=== PATIENT | male | born 1940 | race Caucasian/White ===

== ENCOUNTER 2020-06-25 17:16 | Inpatient (IN) | payer MEDICARE, SELFPAY ==
[2020-06-25 17:17] VITALS: BP 115/80; PULSE 88; RESP 14; TEMP 36.9; O2SAT 95; BMI 22.1
--- NOTE | 2020-06-25 17:30 | ED.VISSUMM ---
- ER Visit Summary Date of Service: 06/25/20 Chief Complaint: Elevated blood sugar with a history of diabetes History of Present Illness: The patient is a 79 M history of diabetes on oral hypoglycemic not insulin, hypertension and hypothyroidism. He was diagnosed about 4 5 months ago with diabetes is only on 1 pill a day. said recently he has been drinking more fluids. He has been drinking a lot of sweet tea. She was concerned as his blood sugar was reading high today. He is never been in DKA. He denies any recent illness. No nausea, vomiting, diarrhea or fever. No dysuria. No chest pain, shortness of breath or abdominal pain. Physical Examination: Well-appearing older male. Accompanied by his family. Vital signs are stable afebrile. He does not look septic or toxic. He does not look dehydrated. H EENT exam unremarkable. Moist mucous membranes. Pupils round reactive light. No facial droop. Normal speech. Neck nontender. Lungs clear to auscultation bilaterally. Heart regular rhythm no murmur. Rate about 90. Abdomen is soft and nontender. Normal bowel sounds no peritoneal signs. Patient moving all 4 extremities. Nontender. No edema. Normal range of motion. Normal motor strength. Patient is awake and alert answering all questions. Test Results: CBC shows a white count of 9. Hemoglobin 15. No bands. Electrolytes show a normal anion gap at 12 glucose elevated at 565 with a BUN of 46 and creatinine of 1.81 consistent with dehydration. Ketones are moderate which may be from either dehydration or early DKA but currently there is no gap. Repeat exam the patient is doing well at 7:05 PM. He will be started on a second liter normal saline. I discussed with both he and his family they are comfortable with the admission. Emergency Department Course and Treatment: Male with diabetes with elevated blood sugar. He will be treated IV fluids. Labs are being obtained. Treatment Plan: Hospitalist on page for admission. Discussed patient care with the night hospitalist. He preferred the patient get subcu insulin set IV. He will be placed on PCU. Patient will be given 8 units subcu of Humalog. Disposition: Admission Impression: Acute hyperglycemia with elevated serum ketones Rule out DKA Dehydration History of [id number] diabetes This note was generated with [employer] dictation software. It may contain incorrect words, spelling, and punctuation that were not noted in review of the chart prior to signing ED Disposition - Plan for ED Patient: Referrals: Woo Julien MD [STAFF PHYSICIAN] -
[2020-06-25] MEDS: 0.9% Normal Saline 1,000 ML 1000 ML IV (17:43)
[2020-06-25 17:50] LABS: Absolute Lymphocyte Count 1.78 X10^3/uL (0.83-4.51); Absolute Neutrophil Count 7.4 X10^3/uL (2.0-7.7); Basophil# 0.02 X10^3/uL; Basophil% 0.2 % (0-1); Eosinophil# 0.01 X10^3/uL; Eosinophils% 0.1 % (0-5); Hematocrit 46.9 % (40-54); Hemoglobin 15.6 g/dL (13.0-16.5); Lymphocyte # 1.78 X10^3/ul (4.0); Lymphocyte % 18.1 % (19-41); Mean Corp Hgb Conc 33.3 g/dL (32-36); Mean Corpuscular Hgb 30.4 pg (27.0-32.0); Mean Corpuscular Volume 91.4 fL (80-94); Monocyte# 0.61 X10^3/uL; Monocyte% 6.2 % (0-10); NRBC Flagged by Analyzer 0 % (0-5); Neutrophil # 7.36 X10^3/uL (2.7-7.7); Neutrophil % 75.1 % (47-70); Platelet Count 242 K/mm3 (150-450); RBC Distribution Width CV 11.3 % (11.6-14.6); RBC Distribution Width SD 38.2 fl (35.1-43.9); Red Blood Count 5.13 M/mm3 (4.6-6.2); White Blood Count 9.8 K/mm3 (4.4-11.0)
[2020-06-25 18:46] LABS: Anion Gap 12 (5-15); BUN 46 mg/dL (7-18); BUN/Creat Ratio 25.4 RATIO (10-20); Calcium,Total 9.9 mg/dL (8.5-10.1); Chloride 99 mmol/L (98-107); Creatinine, Serum 1.81 mg/dL (0.70-1.30); EST Glomerular Filtration Rate 39 mL/min (>60); Est Glom Filt Rate - Afr Amer 47 mL/min (>60); Estimated Creatinine Clearance 32.89 ml/min; Glucose 565 mg/dL (74-106); Potassium 4.7 mmol/L (3.5-5.1); Sodium Level 136 mmol/L (136-145)
[2020-06-25 19:15] LABS: Bedside Glucose > 500 mg/dL (70-110)
[2020-06-25] MEDS: 0.9% Normal Saline 1,000 ML 999 ML IV (19:20)
[2020-06-25] MEDS: Insulin Lispro 100 UNIT/ML INSULN.PEN 8 UNIT SC (19:20)
[2020-06-25 19:23] VITALS: BP 111/77; PULSE 72; PULSE 73; RESP 14; TEMP 37; O2SAT 99
--- NOTE | 2020-06-25 19:24 | PCM.HP.STD ---
Problem List (1) CHANTALE (acute kidney injury) Status: Acute (2) Acute hyperglycemia Status: Acute (3) Dehydration Status: Acute History of Present Illness Date of Admission: 06/25/20 Chief Complaint: Elevated blood glucose at home The patient is a 79 year old M with a significant history of recently diagnosed diabetes mellitus; hypertension and hypothyroidism who presented to emergency department with elevated blood glucose. In the morning on the same day of presentation patient's checked patient blood glucose. Patient blood glucose was in the 560s. Associated with his symptoms is fatigue; polydipsia and polyuria. Reportedly patient has been drinking so much water, orange juice and sweet tea. Patient's called the [facility] system and patient was instructed to come to the emergency department. Reportedly patient was diagnosed with diabetes mellitus about 4 months ago and is on Metformin. Past Medical History Medical History: Medical History (Last Updated 06/25/20 @ 19:[address] Mk Davis MD) Diabetes mellitus E11.9 Hypothyroidism E03.9 Hypertension I10 Allergies No Known Allergies Allergy (Verified 06/25/20 17:17) Home Medications: Ambulatory Orders Medication Instructions Recorded Cyanocobalamin [Vitamin B12] 1,000 mcg PO DAILY@0800 03/17/14 Levothyroxine 150 mcg PO DAILY 03/17/14 Lisinopril [Zestril] 20 mg PO DAILY 03/17/14 Ferrous Sulfate [Iron] 325 mg PO DAILY 06/25/20 metFORMIN (XR) [Glucophage Xr] 500 mg PO DAILY 06/25/20 Surgical History: cholecystectomy Smoking Status: Former smoker Tobacco Use: Cigarettes - *Family History Maternal History Items: Cancer Sibling History Items: Cancer Review of Systems Constitutional: Reports: Fatigue. Denies: Chills, Fever, Weight Change HEENT: Denies: Head Aches, Sinus Congestion, Sinus Drainage Cardiovascular: Denies: Chest Pain, Palpitations Respiratory: Denies: Cough, Shortness of breath at rest, Sputum production Gastrointestinal: Denies: Abdominal Pain, Nausea, Vomiting Genitourinary: Denies: Dysuria Musculoskeletal: Denies: Joint Pain, Joint Tenderness Skin: Denies: Rash, Wounds Neurological: Denies: Numbness, Tingling, Focal weakness Psychiatric: Denies: Anxiety, Depression, Homicidal Ideations, Suicidal Ideations Endocrine: Reports: Polydipsia, Polyuria Hematologic/ Lymphatic: Denies: Easy Bruising, Easy Bleeding VTE Information - Inpt Only VTE Present on Admission: No VTE Mechan Device Prophylaxis: None VTE Pharm Prophylaxis ordered?: Yes Patient Problems: Active and Suspected Problems (Last Updated 06/25/20 @ 19:[address] Mk Davis MD) CHANTALE (acute kidney injury) (Acute) Acute hyperglycemia (Acute) Dehydration (Acute) - Physical Exam Vitals/I&O's: Vital Signs Temp Pulse Resp BP Pulse Ox 98.6 F 73 14 111/77 99 06/25/20 19:23 06/25/20 19:23 06/25/20 19:23 06/25/20 19:23 06/25/20 19:23 Oxygen Delivery Method Room Air Weight: 68.039 kg Body Mass Index (BMI) 22.1 Finger Stick Blood Glucose 545 Intake and Output for Last 24 Hours 06/23/20 06/24/20 06/25/20 23:59 23:59 23:59 Intake Total 1000 / 1000 Balance 1000 / 1000 General: Alert, Oriented x3, Cooperative HEENT: Atraumatic, PERRLA, EOMI, Normocephalic Neck: Supple, No JVD, Negative Carotid Bruits Lungs: Clear to auscultation, Normal air movement Cardiovascular: Regular rate, No murmurs Abdomen: Bowel Sounds Present, Soft, Non Tender Extremities: No edema, Capillary Refill Less than 3 Seconds Skin: No rashes, No breakdown Musculoskeletal: No Tenderness to Palpation of Joints or Extremities Neurological: Cranial nerves II-XII grossly intact Psych/Mental Status: Normal Affect, Appropriate Laboratory Results 06/25/20 17:41: WBC 9.8, RBC 5.13, Hgb 15.6, Hct 46.9, MCV 91.4, MCH 30.4, MCHC 33.3, RDW Std Deviation 38.2, RDW Coeff of Moise 11.3 L, Plt Count 242, MPV 12.0, Immature Gran % (Auto) 0.300, Neut % (Auto) 75.1 H, Lymph % (Auto) 18.1 L, [place] % (Auto) 6.2, Eos % (Auto) 0.1, Baso % (Auto) 0.2, Absolute Neuts (auto) 7.4, Absolute Lymphs (auto) 1.78, Nucleated RBC % 0 06/25/20 17:41: Sodium 136, Potassium 4.7, Chloride 99, Carbon Dioxide 25.0, Anion Gap 12, BUN 46 H, Creatinine 1.81 H, Estim Creat Clear Calc 32.89, Est GFR (MDRD) Af Amer 47 L, Est GFR (MDRD) Non-Af 39 L, BUN/Creatinine Ratio 25.4 H, Glucose 565 H*, Calcium 9.9 06/25/20 17:41: Acetone Level MODERATE H 06/25/20 19:10: POC Glucose > 500 H* Current Medications Dextrose (Dextrose 50%-Water 25 Gm/50 Ml Disp.Syrin) 0 gm IV X1 PRN; Protocol PRN Reason: Hypoglycemia Glucagon (Glucagon 1 Mg/Ml Syringe) 1 mg IM .X1 PRN PRN Reason: Hypoglycemia Sodium Chloride () 1,000 mls @ 999 mls/hr IV .Q1H1M ONE Stop: 06/25/20 20:07 Last Admin: 06/25/20 19:20 Dose: 999 mls/hr Documented by: Insulin Human Lispro (Insulin Lispro 100 Unit/Ml Insuln.Pen) 0 unit SC Q4 PAMELA; Protocol Assessment/Plan All Active Problems (Last Updated 06/25/20 @ 19:[address] Mk Davis MD) CHANTALE (acute kidney injury) (Acute) Acute hyperglycemia (Acute) Dehydration (Acute) The patient is a 79 year old M with a significant history of recently diagnosed diabetes mellitus; hypertension and hypothyroidism who presented to emergency department with elevated blood glucose; fatigue; polydipsia and polyuria and found to have elevated BUN; elevated creatinine; severely elevated blood glucose and with ketones but if no anion gap and if no metabolic acidosis. Acute hyperglycemia Serum glucose 568 acetone level: Moderate Anion gap of 12 Received normal saline bolus at emergency department. Discussed emergent department doctor will give patients of subcutaneous insulin x1 dose N.p.o. for now except meds and water. Accu-Chek every 4 hours with correction scale insulin. Hold home Metformin. Admitted to PCU Review of community records shows that A1c on 05/04/2020 was 7.1 and A1c on 11/22/2019 was 6.2. CHANTALE/dehydration His creatinine on presentation was 1.81. Review of community records showed that his creatinine 05/04/2020 was 1.09. BUN is 46. BUN over creatinine is 25.5. Serum osmolality ordered. Serum osmolality returned as 338. Normal saline at 100 mL/h ordered. Avoid nephrotoxins. Home lisinopril held. Hypertension Blood pressure is within goal Lisinopril held secondary to CHANTALE. As needed hydralazine ordered. Trend blood pressure and adjust blood pressure medications. Hypothyroidism Synthroid continued DVT prophylaxis Subcutaneous Lovenox ordered. OBSV E&M: 35195 Initial observation care L3
[2020-06-25 19:50] VITALS: BMI 20.2
[2020-06-25 19:55] VITALS: BP 123/80; PULSE 78; RESP 18; TEMP 36.7; O2SAT 100
[2020-06-25 20:00] VITALS: BMI 20.2
[2020-06-25] MEDS: 0.9% Normal Saline 1,000 ML 100 ML IV (20:15)
[2020-06-25 20:33] LABS: Osmolality, Serum 338 mOsm/KG (280-301)
[2020-06-25 20:50] LABS: Bedside Glucose 368 mg/dL (70-110)
[2020-06-25 21:30] VITALS: PULSE 70
[2020-06-25 23:00] VITALS: PULSE 69
[2020-06-25] MEDS: Insulin Lispro 100 UNIT/ML INSULN.PEN SC (23:15)
[2020-06-25 23:21] LABS: Bedside Glucose 178 mg/dL (70-110)
[2020-06-26] VITALS (11 sets, daily range): BP systolic 92–106; BP diastolic 55–67; PULSE 62–70; RESP 12–20; TEMP 36.3–37; O2SAT 95–97; BMI 20.5
[2020-06-26 00:53] LABS: Anion Gap 7 (5-15); BUN 42 mg/dL (7-18); BUN/Creat Ratio 36.5 RATIO (10-20); Calcium,Total 8.5 mg/dL (8.5-10.1); Chloride 114 mmol/L (98-107); Creatinine, Serum 1.15 mg/dL (0.70-1.30); EST Glomerular Filtration Rate 65 mL/min (>60); Est Glom Filt Rate - Afr Amer 79 mL/min (>60); Estimated Creatinine Clearance 47.33 ml/min; Glucose 162 mg/dL (74-106); Potassium 3.8 mmol/L (3.5-5.1); Sodium Level 146 mmol/L (136-145)
[2020-06-26] MEDS: Insulin Lispro 100 UNIT/ML INSULN.PEN SC ×4 (02:59→20:48)
[2020-06-26 03:06] LABS: Bedside Glucose 162 mg/dL (70-110)
[2020-06-26] MEDS: 0.9% Normal Saline 1,000 ML 100 ML IV ×2 (05:31→15:07)
[2020-06-26] MEDS: Levothyroxine 150 MCG Tablet PO (05:31)
[2020-06-26 06:47] LABS: Absolute Neutrophil Count 6.2 X10^3/uL (2.0-7.7); Basophil# 0.03 X10^3/uL; Basophil% 0.3 % (0-1); Eosinophil# 0.09 X10^3/uL; Hematocrit 38.2 % (40-54); Hemoglobin 12.6 g/dL (13.0-16.5); Lymphocyte % 22.3 % (19-41); Mean Platelet Vol. 12.2 fl (6.2-12.0); Monocyte# 0.67 X10^3/uL; Monocyte% 7.5 % (0-10); NRBC Flagged by Analyzer 0 % (0-5); Neutrophil # 6.17 X10^3/uL (2.7-7.7); Neutrophil % 68.7 % (47-70); Platelet Count 175 K/mm3 (150-450); RBC Distribution Width CV 11.5 % (11.6-14.6); RBC Distribution Width SD 38.1 fl (35.1-43.9)
[2020-06-26 07:05] LABS: Bedside Glucose 170 mg/dL (70-110)
[2020-06-26 07:09] LABS: Anion Gap 7 (5-15); BUN 42 mg/dL (7-18); BUN/Creat Ratio 37.2 RATIO (10-20); Calcium,Total 8.5 mg/dL (8.5-10.1); Chloride 114 mmol/L (98-107); Creatinine, Serum 1.13 mg/dL (0.70-1.30); EST Glomerular Filtration Rate 67 mL/min (>60); Est Glom Filt Rate - Afr Amer 81 mL/min (>60); Estimated Creatinine Clearance 48.16 ml/min; Glucose 164 mg/dL (74-106); Potassium 4.1 mmol/L (3.5-5.1); Sodium Level 146 mmol/L (136-145)
[2020-06-26 07:54] LABS: Hemoglobin A1c 12.5 % (3.8-5.6)
[2020-06-26] MEDS: Enoxaparin 40 MG/0.4 ML Syringe SC (09:58)
[2020-06-26] MEDS: Cyanocobalamin 500 MCG Tablet 1000 MCG PO (09:58)
--- NOTE | 2020-06-26 11:25 | CASEMGMT ---
Addendum entered by Jhonatan Hylton 06/26/20 12:23: [facility] can take HHC referral for patient with anticipated dc Tuesday, June 27 Original Note: RN CM Assessment Introduced role of CM to patient in room. Patient was ambulating in ness with therapy assistance prior to speaking with him. Pt is awake and alert and able to participate in assessment. States he is moderately independent at home, but is able to assist him. States she does help with some bathing, meals and home care. Diagnosis: hyperglycemia, CHANTALE PCP: Dr. Valdez Specialist: none Pharmacy: [facility] [place]: Living arrangments: lives in mobile home with his . States 5 steps into home, then all on one level. Pt uses shower chair, and is able to assist with care needs, however pt does own bathing and dressing. DME: walker, cane, shower chair, BGM machine, working and has supplies. States his assists with this. HHC: none currently or past. Discussed home care on discharge for SN, PT/OT and patient is agreeable. Reviewed list of [facility] providers specific to patient's geographic area and patient chose [facility] as first choice and [facility] if they cannot accept. Referral made to [facility] and they will review. SNF: none DC PLAN: home with HHC. If further dc concerns arise, notify CM. Charles PINTO RN ACM
[2020-06-26 11:56] LABS: Bedside Glucose 219 mg/dL (70-110)
--- NOTE | 2020-06-26 12:36 | NT.THERAPY_ITS ---
Nutrition Therapy Report - History Nutrition Services has been consulted to:: Manage nutrient details of diet order Current diet / nutrition support order:: 1800 Calorie / Cardiac - Anthropometric Measurements Height:: 5 ft 9 in Weight:: 63.2 kg Body Mass Index (BMI):: 20.5 - Relevant Labs Relevant Labs:: RBC 4.20 M/mm3 (4.6-6.2) L 06/26/20 05:55 Hgb 12.6 g/dL (13.0-16.5) L 06/26/20 05:55 Hct 38.2 % (40-54) L 06/26/20 05:55 RDW Coeff of Moise 11.5 % (11.6-14.6) L 06/26/20 05:55 MPV 12.2 fl (6.2-12.0) H 06/26/20 05:55 Neut % (Auto) 75.1 % (47-70) H 06/25/20 17:41 Lymph % (Auto) 18.1 % (19-41) L 06/25/20 17:41 Sodium 146 mmol/L (136-145) H 06/26/20 05:55 Chloride 114 mmol/L (98-107) H 06/26/20 05:55 BUN 42 mg/dL (7-18) H 06/26/20 05:55 Creatinine 1.81 mg/dL (0.70-1.30) H 06/25/20 17:41 Est GFR (MDRD) Af Amer 47 mL/min (>60) L 06/25/20 17:41 Est GFR (MDRD) Non-Af 39 mL/min (>60) L 06/25/20 17:41 BUN/Creatinine Ratio 37.2 RATIO (10-20) H 06/26/20 05:55 Glucose 164 mg/dL (74-106) H 06/26/20 05:55 Hemoglobin A1c 12.5 % (3.8-5.6) H 06/26/20 05:55 Serum Osmolality 338 mOsm/KG (280-301) H 06/25/20 17:41 - Assessment Food / Nutrition-Related History:: Fair po intake in hospital - pt states appetite has not been as good in the past 6 mo and has had wt loss d/t lack of eating. UBW: 81.647 kg - wt loss of 23.9% x 6 mo - sig for malnutrition. 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 Pt agreeable to getting ONS w/ medpass for increased nutrition if consumed. 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 Altered nutrition related lab values r/t endocrine dysfunction aeb A1c=12.5 at time of adm. [ End ] Evidence of Malnutrition Exists:: Yes Severe PCM:: Acute Illness - Nutrition Intervention Nutrition Prescription:: [id number] bambi/day (RMRx 1.3). 50-62 gm pro/day (.8-1 gm/kg). 1800 ml/day (1 ml/bambi) - Food / Nutrient Delivery Interventions Summary of nutrition intervention:: Provided pt with written diabetic diet education- Where Do I Begin and Meal Planning Plate. Discussed need for consistent cho intake, consistent meal times, need for 3 balanced meals each day and portion control w/ CHO containing foods. Pt states that his will do better with this info than he will - agreed to share w/ his . Suggested consider outpt Diabetic Clinic for further diabetes diet education and teaching on SMBG. Will provide 120 ml Glucerna Shake 4x/day w/ medpass for increased nutrition if consumed. Nutrition support ordered as / adjusted to:: Will continue diet as ordered. Will provide ONS w/ medpass for increased nutrition if consumed. Nutrition education provided?: Yes - MNT Monitoring MNT Follow-up in:: 3-5 days - Please call RD/LD if questions x [phone]
[2020-06-26] MEDS: Glucerna Shake 120 ML LIQUID PO ×2 (14:05→17:16)
[2020-06-26] MEDS: Ferrous Sulfate 325 MG Tablet PO (14:05)
--- NOTE | 2020-06-26 14:35 | PN_ITS ---
Patient Problems: Active and Suspected Problems (Last Updated 06/25/20 @ 19:[address] Mk Davis MD) CHANTALE (acute kidney injury) (Acute) Acute hyperglycemia (Acute) Dehydration (Acute) Subjective: Patient seen and examined. He had no complaints and felt well. Review of systems otherwise negative. Sugar had trended down to the 150s. Patient has been started on a diet. Vitals/I&O's: Vital Signs Temp Pulse Resp BP Pulse Ox 98.2 F 70 12 103/67 95 06/26/20 09:52 06/26/20 12:02 06/26/20 09:52 06/26/20 09:52 06/26/20 09:52 Oxygen Delivery Method Room Air Weight: 139 lb 5.314 oz Body Mass Index (BMI) 20.5 Finger Stick Blood Glucose 545 Intake and Output for Last 24 Hours 06/24/20 06/25/20 06/26/20 23:59 23:59 23:59 Intake Total 1932.4 / 2132.4 1666.67 / 1666.67 Balance 1932.4 / 2131.4 1666.67 / 1666.67 General: Alert, Oriented x3, Cooperative, No apparent distress HEENT: Atraumatic, PERRLA, EOMI, Normocephalic Oral: Dry Mucosa Neck: Supple, No JVD, Negative Carotid Bruits Lungs: Clear to auscultation, Normal air movement, No rhonchi, No wheeze Cardiovascular: Regular rate, Regular Rhythm, Normal S1, Normal S2, No murmurs Abdomen: Bowel Sounds Present, Soft, Non Tender Extremities: No clubbing, No cyanosis, No edema, Capillary Refill Less than 3 Seconds Skin: No rashes, No breakdown Musculoskeletal: No Tenderness to Palpation of Joints or Extremities Lymphatic: No Cervical, Supraclavicular, or Inguinal Adenopathy Neurological: Cranial nerves II-XII grossly intact, Neuro grossly intact, Motor Exam 5/5 strength throughout Psych/Mental Status: Normal Affect, Appropriate, Alert and oriented to time, place, person, mood and affect Laboratory Results 06/25/20 17:41: WBC 9.8, RBC 5.13, Hgb 15.6, Hct 46.9, MCV 91.4, MCH 30.4, MCHC 33.3, RDW Std Deviation 38.2, RDW Coeff of Moise 11.3 L, Plt Count 242, MPV 12.0, Immature Gran % (Auto) 0.300, Neut % (Auto) 75.1 H, Lymph % (Auto) 18.1 L, [place] % (Auto) 6.2, Eos % (Auto) 0.1, Baso % (Auto) 0.2, Absolute Neuts (auto) 7.4, Absolute Lymphs (auto) 1.78, Nucleated RBC % 0 06/25/20 17:41: Sodium 136, Potassium 4.7, Chloride 99, Carbon Dioxide 25.0, Anion Gap 12, BUN 46 H, Creatinine 1.81 H, Estim Creat Clear Calc 32.89, Est GFR (MDRD) Af Amer 47 L, Est GFR (MDRD) Non-Af 39 L, BUN/Creatinine Ratio 25.4 H, Glucose 565 H*, Calcium 9.9 06/25/20 17:41: Acetone Level MODERATE H 06/25/20 17:41: Serum Osmolality 338 H 06/25/20 19:10: POC Glucose > 500 H* 06/25/20 20:33: POC Glucose 368 H 06/25/20 23:15: POC Glucose 178 H 06/26/20 00:15: Sodium 146 H, Potassium 3.8, Chloride 114 H, Carbon Dioxide 25.0, Anion Gap 7, BUN 42 H, Creatinine 1.15, Estim Creat Clear Calc 47.33, Est GFR (MDRD) Af Amer 79, Est GFR (MDRD) Non-Af 65, BUN/Creatinine Ratio 36.5 H, Glucose 162 H, Calcium 8.5 06/26/20 02:58: POC Glucose 162 H 06/26/20 05:55: WBC 9.0, RBC 4.20 L, Hgb 12.6 L, Hct 38.2 L, MCV 91.0, MCH 30.0, MCHC 33.0, RDW Std Deviation 38.1, RDW Coeff of Moise 11.5 L, Plt Count 175, MPV 12.2 H, Immature Gran % (Auto) 0.200, Neut % (Auto) 68.7, Lymph % (Auto) 22.3, [place] % (Auto) 7.5, Eos % (Auto) 1.0, Baso % (Auto) 0.3, Absolute Neuts (auto) 6.2, Absolute Lymphs (auto) 2.00, Nucleated RBC % 0 06/26/20 05:55: Sodium 146 H, Potassium 4.1, Chloride 114 H, Carbon Dioxide 25.0, Anion Gap 7, BUN 42 H, Creatinine 1.13, Estim Creat Clear Calc 48.16, Est GFR (MDRD) Af Amer 81, Est GFR (MDRD) Non-Af 67, BUN/Creatinine Ratio 37.2 H, Glucose 164 H, Calcium 8.5 06/26/20 05:55: Hemoglobin A1c 12.5 H 06/26/20 06:59: POC Glucose 170 H 06/26/20 11:51: POC Glucose 219 H Current Medications Acetaminophen (Acetaminophen 325 Mg Tablet) 650 mg PO Q6H PRN PRN PRN Reason: Pain Score 1-10/Temp > 100.7 F Cyanocobalamin (Cyanocobalamin 500 Mcg Tablet) 1,000 mcg PO DAILY@0800 [facility] Last Admin: 06/26/20 09:58 Dose: 1,000 mcg Documented by: Dextrose (Dextrose 50%-Water 25 Gm/50 Ml Disp.Syrin) 0 gm IV X1 PRN; Protocol PRN Reason: Hypoglycemia Enoxaparin Sodium (Enoxaparin 40 Mg/0.4 Ml Syringe) 40 mg SC DAILY [facility] Last Admin: 06/26/20 09:58 Dose: 40 mg Documented by: Ferrous Sulfate (Ferrous Sulfate 325 Mg Tablet) 325 mg PO LUNCH [facility] Last Admin: 06/26/20 14:05 Dose: 325 mg Documented by: Glucagon (Glucagon 1 Mg/Ml Syringe) 1 mg IM .X1 PRN PRN Reason: Hypoglycemia Hydralazine HCl (Hydralazine 20 Mg/Ml Vial) 5 mg IV Q4H PRN PRN PRN Reason: SBP > 160 OR DBP > 120 Sodium Chloride () 1,000 mls @ 100 mls/hr IV .Q10H [facility] Last Admin: 06/26/20 05:31 Dose: 100 mls/hr Documented by: Insulin Glargine (Insulin Glargine 100 Units/Ml Pen) 10 units SC DAILY [facility] Last Admin: 06/26/20 09:59 Dose: 10 units Documented by: Insulin Human Lispro (Insulin Lispro 100 Unit/Ml Insuln.Pen) 0 unit SC Q4H [facility]; Protocol Last Admin: 06/26/20 13:23 Dose: Not Given Documented by: Levothyroxine Sodium (Levothyroxine 150 Mcg Tablet) 150 mcg PO DAILY@0600 [facility] Last Admin: 06/26/20 05:31 Dose: 150 mcg Documented by: Melatonin (Melatonin 3 Mg Tablet) 3 mg PO QHS PRN PRN PRN Reason: INSOMNIA Nutritional Formula (Lactose Free) (Glucerna Shake 120 Ml Liquid) 120 ml PO 4X/DAY [facility] Last Admin: 06/26/20 14:05 Dose: 120 ml Documented by: Ondansetron HCl (Ondansetron 4 Mg/2 Ml Vial) 4 mg IV Q8H PRN PRN PRN Reason: NAUSEA/VOMITING Senna/Docusate Sodium (Senna/Docusate Sodium 1 Tablet) 2 tablet PO BID PRN PRN PRN Reason: Constipation Sodium Chloride (0.9% Saline Lock 10 Ml Syringe) 10 - 40 ml IV UD PRN PRN Reason: SALINE FLUSH STROKE Vital Signs/Narrative: Vital Signs Pulse 06/26/20 12:02 70 Medical Necessity - Tobacco Use Smoking Status: Former smoker Tobacco Use: Cigarettes Assessment/Plan All Active Problems (Last Updated 06/25/20 @ 19:[address] Mk Davis MD) CHANTALE (acute kidney injury) (Acute) Acute hyperglycemia (Acute) Dehydration (Acute) #Acute hypergycemia in poorly controlled diabetes * Blood sugar was 568 on admission. Received a bolus of insulin and has been on sliding scale. Blood sugars came down. * Bicarb was 25 on admission and anion gap was 12. Sugar now down to 164. * A1c is 12.5. * Will resume patient's Metformin. Start on Lantus 10 units daily subcu * Accu-Cheks AC at bedtime. * Insulin sliding scale. * Of note, did say that patient has stopped drinking diet C's and had been drinking sweetened teas and lots of orange juice. * needs diabetes education * #Poorly controlled diabetes mellitus: As above #CHANTALE: likely due to dehydration. CR down to 1.13 from 1.81 on admission.Resolved #Hypertension * Lisinopril was held on account of CHANTALE. Will resume as CHANTALE has resolved * IV hydralazine as needed. * #Hypothyroidism: on synthroid DVT prophylaxis: lovenox Inpatient E&M: 35842 Subs Hosp L2
[2020-06-26 17:16] LABS: Bedside Glucose 238 mg/dL (70-110)
[2020-06-26 20:56] LABS: Bedside Glucose 167 mg/dL (70-110)
[2020-06-27] MEDS: 0.9% Normal Saline 1,000 ML 100 ML IV (01:00)
[2020-06-27 01:06] LABS: Bedside Glucose 117 mg/dL (70-110)
[2020-06-27 02:45] VITALS: BP 106/49; PULSE 58; RESP 16; TEMP 36.7; O2SAT 95
[2020-06-27 03:00] VITALS: PULSE 62
[2020-06-27 05:01] LABS: Bedside Glucose 120 mg/dL (70-110)
[2020-06-27] MEDS: Levothyroxine 150 MCG Tablet PO (06:13)
[2020-06-27 07:04] VITALS: O2SAT 93
[2020-06-27 07:31] VITALS: PULSE 59
[2020-06-27 09:02] VITALS: BP 111/65; PULSE 60; RESP 14; TEMP 36.6; O2SAT 98
[2020-06-27] MEDS: Enoxaparin 40 MG/0.4 ML Syringe SC (09:04)
[2020-06-27] MEDS: Cyanocobalamin 500 MCG Tablet 1000 MCG PO (09:04)
[2020-06-27] MEDS: Glucerna Shake 120 ML LIQUID PO (09:06)
--- NOTE | 2020-06-27 10:06 | PCM.DC ---
- Discharge Diagnoses Current Active Problems: Current Active and Chronic Problems (Last Updated 06/25/20 @ 19:[address] Mk Davis MD) CHANTALE (acute kidney injury) (Acute) Acute hyperglycemia (Acute) Dehydration (Acute) You will use the following diet at home:: Calorie/Carbohydrate Controlled (specify 1200, 1400, etc) - 1800 calories Your food should be the consistency of: Regular Your liquids should be the consistency of: Regular/Thin Discharge Activity: Return to Normal Activity Weight Bearing Status: Weight bearing as tolerated Call your doctor if you observe: Fever of 101 or Higher, Shortness of breath, Dizziness, Fainting spells Instructions: ED Diabetic Hyperglycemia, Hyperglycemia (High Blood Sugar) Additional Instructions: counseled to stop drinking sweetened tea and sweetened juices. To stick to unsweetened beverages. Allergies/Adverse Reactions: Allergies No Known Allergies Allergy (Verified 06/25/20 17:17) Medications to take at Discharge Cyanocobalamin [Vitamin B12] 1,000 mcg PO DAILY@0800 03/17/14 Levothyroxine 150 mcg PO DAILY 03/17/14 Lisinopril [Zestril] 20 mg PO DAILY 03/17/14 Ferrous Sulfate [Iron] 325 mg PO DAILY 06/25/20 Insulin Glargine [Lantus SoloStar Pen] 10 units SC DAILY #5 pen 06/27/20 Lancets/Blood Glucose Strips [Fora [id number] Strp-Lnct] 1 each MC BID #1 combo..pkg 06/27/20 [place], Insulin Disposable [Novofine Autocover 30G Needle] 1 each MISCELL. UD #1 box 06/27/20 metFORMIN (XR) [Glucophage Xr] 500 mg PO BID #60 tablet 06/27/20 The following prescriptions were given: Lancets/Blood Glucose Strips [Fora [id number] Strp-Lnct] 1 each MC BID #1 combo..pkg Transmission Status: Pending to [facility] metFORMIN (XR) [Glucophage Xr] 500 mg PO BID #60 tablet Transmission Status: Pending to [facility] Insulin Glargine [Lantus SoloStar Pen] 10 units SC DAILY #5 pen Transmission Status: Pending to [facility] [place], Insulin Disposable [Novofine Autocover 30G Needle] 1 each MISCELL. UD #1 box Transmission Status: Pending to [facility] Primary Care Physician: Woo Julien MD [STAFF PHYSICIAN] - Please follow up with your Primary Care Physician in: 1-2 weeks Test Results: Test results from this visit will be discussed in further detail at your follow-up appointment, if applicable. Please Follow Up With: Salvador Kemp MD When: 2-3 weeks to establish endocrinology care for diabetes mellitus Proposed Discharge Date: 06/27/20
--- NOTE | 2020-06-27 10:09 | PCM.DC.SUM ---
Discharge Date and Diagnosis - Problem List Patient Problems: Active and Suspected Problems (Last Updated 06/25/20 @ 19:[address] Mk Davis MD) CHANTALE (acute kidney injury) (Acute) Acute hyperglycemia (Acute) Dehydration (Acute) Date of Admission: 06/25/20 Date of Discharge: 06/28/20 - Primary Discharge Diagnosis Acute Problems: Active Problems (Last Updated 06/25/20 @ 19:[address] Mk Davis MD) CHANTALE (acute kidney injury) (Acute) Acute hyperglycemia (Acute) Dehydration (Acute) Hospital Course and Treatment Operations: None Procedures: None Summary of Care Provided: The patient is a 79 year old M with past medical history as outlined which includes recently diagnosed diabetes mellitus, hypertension and hypothyroidism. Was admitted through the ED on 06/25/2020 with a complaint of elevated blood sugar. His blood sugar was in the 560s. He had associated fatigue, polydipsia and polyuria. Patient and admitted to the fact that patient had been drinking a lot of sweet teas and fruit juices. Review of symptoms otherwise negative. He was admitted and managed for hyperglycemia due to noncompliance. Anion gap was not elevated, though he had moderate acetone's. He also had an anion gap of 12. He also had mild CHANTALE with creatinine of 1.81. He was hydrated with IV fluids. He was also given subcu insulin. Blood sugars trended down. Patient's A1c checked was 0.5. He was started on Lantus 10 units daily. Patient remained stable and was discharged on 06/28/2020. He was counseled about compliance with his diet and also using insulin and to follow-up with his primary care doctor and endocrinology. Patient was seen and examined prior to discharge. He had no complaints and felt well. Review of stems otherwise negative. Labs and vitals reviewed. Home medication reviewed and reconciled. O/E: Vital Signs Temp Pulse Resp BP Pulse Ox 97.8 F 60 14 111/65 98 06/27/20 09:02 06/27/20 09:02 06/27/20 09:02 06/27/20 09:02 06/27/20 09:02 [] General: Alert, Oriented x3, Cooperative, No apparent distress HEENT: Atraumatic, PERRLA, EOMI, Normocephalic Oral: Dry Mucosa Neck: Supple, No JVD, Negative Carotid Bruits Lungs: Clear to auscultation, Normal air movement, No rhonchi, No wheeze Cardiovascular: Regular rate, Regular Rhythm, Normal S1, Normal S2, No murmurs Abdomen: Bowel Sounds Present, Soft, Non Tender Extremities: No clubbing, No cyanosis, No edema, Capillary Refill Less than 3 Seconds Skin: No rashes, No breakdown Musculoskeletal: No Tenderness to Palpation of Joints or Extremities Lymphatic: No Cervical, Supraclavicular, or Inguinal Adenopathy Neurological: Cranial nerves II-XII grossly intact, Neuro grossly intact, Motor Exam 5/5 strength throughout Psych/Mental Status: Normal Affect, Appropriate, Alert and oriented to time, place, person, mood and affect Plan is for discharge home today. Patient Problems: Active and Suspected Problems (Last Updated 06/25/20 @ 19:[address] Mk Davis MD) CHANTALE (acute kidney injury) (Acute) Acute hyperglycemia (Acute) Dehydration (Acute) - Physical Exam Vitals/I&O's: Vital Signs Temp Pulse Resp BP Pulse Ox 97.8 F 60 14 111/65 98 06/27/20 09:02 06/27/20 09:02 06/27/20 09:02 06/27/20 09:02 06/27/20 09:02 Oxygen Delivery Method Room Air Weight: 139 lb 5.314 oz Body Mass Index (BMI) 20.5 Finger Stick Blood Glucose 545 Intake and Output for Last 24 Hours 06/25/20 06/26/20 06/27/20 23:59 23:59 23:59 Intake Total 1932.4 / 2132.4 3893.34 / 3943.34 1080.00 / 1080.00 Balance 1932.4 / 2132.4 3893.34 / 3943.34 1080.00 / 1080.00 Laboratory Results 06/26/20 11:51: POC Glucose 219 H 06/26/20 17:10: POC Glucose 238 H 06/26/20 20:47: POC Glucose 167 H 06/27/20 00:59: POC Glucose 117 H 06/27/20 04:55: POC Glucose 120 H Current Medications Acetaminophen (Acetaminophen 325 Mg Tablet) 650 mg PO Q6H PRN PRN PRN Reason: Pain Score 1-10/Temp > 100.7 F Cyanocobalamin (Cyanocobalamin 500 Mcg Tablet) 1,000 mcg PO DAILY@0800 [facility] Last Admin: 06/27/20 09:04 Dose: 1,000 mcg Documented by: Dextrose (Dextrose 50%-Water 25 Gm/50 Ml Disp.Syrin) 0 gm IV X1 PRN; Protocol PRN Reason: Hypoglycemia Enoxaparin Sodium (Enoxaparin 40 Mg/0.4 Ml Syringe) 40 mg SC DAILY [facility] Last Admin: 06/27/20 09:04 Dose: 40 mg Documented by: Ferrous Sulfate (Ferrous Sulfate 325 Mg Tablet) 325 mg PO LUNCH [facility] Last Admin: 06/26/20 14:05 Dose: 325 mg Documented by: Glucagon (Glucagon 1 Mg/Ml Syringe) 1 mg IM .X1 PRN PRN Reason: Hypoglycemia Hydralazine HCl (Hydralazine 20 Mg/Ml Vial) 5 mg IV Q4H PRN PRN PRN Reason: SBP > 160 OR DBP > 120 Insulin Glargine (Insulin Glargine 100 Units/Ml Pen) 10 units SC DAILY [facility] Last Admin: 06/27/20 09:04 Dose: 10 units Documented by: Insulin Human Lispro (Insulin Lispro 100 Unit/Ml Insuln.Pen) 0 unit SC [facility]; Protocol Levothyroxine Sodium (Levothyroxine 150 Mcg Tablet) 150 mcg PO DAILY@0600 [facility] Last Admin: 06/27/20 06:13 Dose: 150 mcg Documented by: Melatonin (Melatonin 3 Mg Tablet) 3 mg PO QHS PRN PRN PRN Reason: INSOMNIA Nutritional Formula (Lactose Free) (Glucerna Shake 120 Ml Liquid) 120 ml PO 4X/DAY [facility] Last Admin: 06/27/20 09:06 Dose: 120 ml Documented by: Ondansetron HCl (Ondansetron 4 Mg/2 Ml Vial) 4 mg IV Q8H PRN PRN PRN Reason: NAUSEA/VOMITING Senna/Docusate Sodium (Senna/Docusate Sodium 1 Tablet) 2 tablet PO BID PRN PRN PRN Reason: Constipation Sodium Chloride (0.9% Saline Lock 10 Ml Syringe) 10 - 40 ml IV UD PRN PRN Reason: SALINE FLUSH Discharge Diet: 1800 Calorie Control Diet Discharge Activity: Return to Normal Activity Weight Bearing Status: Weight bearing as tolerated Call your doctor if you observe: Fever of 101 or Higher, Shortness of breath, Dizziness, Fainting spells Home Medications: Medications to take at Discharge Cyanocobalamin [Vitamin B12] 1,000 mcg PO DAILY@0800 03/17/14 Levothyroxine 150 mcg PO DAILY 03/17/14 Lisinopril [Zestril] 20 mg PO DAILY 03/17/14 Ferrous Sulfate [Iron] 325 mg PO DAILY 06/25/20 Insulin Glargine [Lantus SoloStar Pen] 10 units SC DAILY #5 pen 06/27/20 Lancets/Blood Glucose Strips [Fora [id number] Strp-Lnct] 1 each MC BID #1 combo..pkg 06/27/20 [place], Insulin Disposable [Novofine Autocover 30G Needle] 1 each MISCELL. UD #1 box 06/27/20 metFORMIN (XR) [Glucophage Xr] 500 mg PO BID #60 tablet 06/27/20 Following Prescriptions Were Given to Patient: Lancets/Blood Glucose Strips [Fora [id number] Strp-Lnct] 1 each MC BID #1 combo..pkg Transmission Status: Received by [facility] metFORMIN (XR) [Glucophage Xr] 500 mg PO BID #60 tablet Transmission Status: Received by [facility] Insulin Glargine [Lantus SoloStar Pen] 10 units SC DAILY #5 pen Transmission Status: Received by [facility] [place], Insulin Disposable [Novofine Autocover 30G Needle] 1 each MISCELL. UD #1 box Transmission Status: Received by [facility] Primary Care Physician: Woo Julien MD [STAFF PHYSICIAN] - Please follow up with your Primary Care Physician in: 1-2 weeks Please Follow Up With: Salvador Kemp MD When: 2-3 weeks to establish endocrinology care for diabetes mellitus Patient Instructions: Hyperglycemia (High Blood Sugar), ED Diabetic Hyperglycemia Disposition: Home Minutes spent on discharge:: 40 Patient Condition:: Stable Medical Necessity - Tobacco Use Smoking Status: Former smoker Tobacco Use: Cigarettes Meaningful Use Info Meaningful Use Diagnoses (Choose all that apply): None applicable Inpatient E&M: [id number] [facility]
--- NOTE | 2020-06-27 10:48 | CASEMGMT ---
Pt is agreeable to [facility] SN, PT/OT at this time. Pt provided with a list of [facility] providers including quality and resource data and consistent with the pt's preferred geographic region, medical needs, and insurance network. CM to follow. Liana SWENSON CM
--- NOTE | 2020-06-27 11:07 | CASEMGMT ---
Iman at [facility] notified of pt discharge at this time. Pt states he does have glucometer at home. Liana SWENSON CM
--- NOTE | 2020-06-27 11:57 | PHA.DC.MC ---
Pharmacy Service has performed discharge medication reconciliation and counseling for this patient. 1. INSULIN GLARGINE 10UNITS SC DAILY The patient's discharge medication list was reviewed for discrepancies and discrepancies were resolved. Home Medications Cyanocobalamin [Vitamin B12] 1,000 mcg PO DAILY@0800 03/17/14 Levothyroxine 150 mcg PO DAILY 03/17/14 Lisinopril [Zestril] 20 mg PO DAILY 03/17/14 Ferrous Sulfate [Iron] 325 mg PO DAILY 06/25/20 Insulin Glargine [Lantus SoloStar Pen] 10 units SC DAILY #5 pen 06/27/20 Lancets/Blood Glucose Strips [Fora [id number] Strp-Lnct] 1 each MC BID #1 combo..pkg 06/27/20 [place], Insulin Disposable [Novofine Autocover 30G Needle] 1 each MISCELL. UD #1 box 06/27/20 metFORMIN (XR) [Glucophage Xr] 500 mg PO BID #60 tablet 06/27/20 The patient was counseled on the following discharge medications and changes in medications for homegoing were reviewed. The Reason for Use, instructions for use, and potential side effects were reviewed for all new medications. The patient's questions regarding all of their medications were answered. The patient was able to verbally demonstrate an understanding of their discharge medications.
== END 2020-06-27 12:25 | disposition home or self-care (01) | DRG 638 ==
LOC: ED 18:16 → PCU 06-26 06:40
PROVIDERS: Admitting Provider Hospitalist; Emergency Provider Emergency Medicine; PCP Family Medicine; Visit Provider Student in an Organized Health Care Education/Training Program
DX: E11.65 Type 2 diabetes mellitus with hyperglycemia (principal); N17.9 Acute kidney failure, unspecified; E44.0 Moderate protein-calorie malnutrition; E86.0 Dehydration; I10 Essential (primary) hypertension; E03.9 Hypothyroidism, unspecified; Z91.19 Patient's noncompliance with other medical treatment and regimen; Z79.4 Long term (current) use of insulin; Z79.890 Hormone replacement therapy; Z79.899 Other long term (current) drug therapy; Z87.891 Personal history of nicotine dependence
CPT/HCPCS: 80048; 82009; 82962; 83036; 83930; 85025; 97162; 97166; 97802; 99284; J7030; J7050; A4216

== ENCOUNTER 2021-04-08 12:31 | Emergency (ER) | payer MEDICARE, SELFPAY ==
[2021-04-08 12:32] VITALS: BP 117/72; PULSE 87; RESP 16; TEMP 36.1; O2SAT 97; BMI 20.7
--- NOTE | 2021-04-08 12:52 | EKG12_ITS ---
Test Reason : SOB Blood Pressure : / mmHG Vent. Rate : 083 BPM Atrial Rate : 083 BPM P-R Int : 138 ms QRS Dur : 088 ms QT Int : 372 ms P-R-T Axes : 027 -14 029 degrees QTc Int : 437 ms Normal sinus rhythm Nonspecific ST abnormality Abnormal ECG LOW VOLTAGE QRS (LIMB LEADS) Confirmed by CARLI SOLIS, HARITHA ([id number]), manager editorial PAMELA MANZANO ([id number]) on 04/11/2021 10:30:29 AM Referred By: CAROLYNE Confirmed By:HARITHA BOYCE MD
--- NOTE | 2021-04-08 13:10 | RAD_ITS ---
STUDY: X-RAY CHEST REASON FOR EXAM: Male, 80 years old. COUGH TECHNIQUE: Single AP portable view of the chest. COMPARISON: 03/17/2014 FINDINGS: The lungs are clear and expanded. There is no demonstrated pleural abnormality. Normal size heart. Normal mediastinum and malik. Normal visualized pulmonary arteries. Normal visualized aortic arch and descending thoracic aorta. Normal visualized thoracic spine. Normal visualized ribs, clavicles, and shoulders. There is no demonstrated abnormality of the visualized soft tissue structures of the upper abdomen. RAD/Chest 1 View (Portable) IMPRESSION: Normal x-ray examination of the chest. Electronically Signed: Irwin Elise MD at 13:39 EST Tel , Service support ,
[2021-04-08 13:52] LABS: Absolute Lymphocyte Count 0.87 X10^3/uL (0.83-4.51); Absolute Neutrophil Count 3.2 X10^3/uL (2.0-7.7); Basophil# 0.01 X10^3/uL; Basophil% 0.2 % (0-1); Hemoglobin 14.5 g/dL (13.0-16.5); Lymphocyte # 0.87 X10^3/ul (0.83-4.51); Lymphocyte % 19.5 % (19-41); Mean Corpuscular Hgb 29.4 pg (27.0-32.0); Mean Corpuscular Volume 89.2 fL (80-94); Mean Platelet Vol. 11.2 fl (6.2-12.0); Monocyte# 0.34 X10^3/uL; Monocyte% 7.6 % (0-10); NRBC Flagged by Analyzer 0 % (0-5); Neutrophil % 71.6 % (47-70); POSITIVE MORPHOLOGY YES; Platelet Count 167 K/mm3 (150-450); RBC Distribution Width CV 12.7 % (11.6-14.6); RBC Distribution Width SD 41.7 fl (35.1-43.9); Red Blood Count 4.93 M/mm3 (4.6-6.2); White Blood Count 4.5 K/mm3 (4.4-11.0)
[2021-04-08 13:53] LABS: Differential Indicated SCAN CRITERIA MET
[2021-04-08 14:05] VITALS: RESP 12; O2SAT 95
[2021-04-08 14:14] LABS: Anion Gap 15 (5-15); BUN 42 mg/dL (7-18); BUN/Creat Ratio 24.9 RATIO (10-20); Calcium,Total 9.3 mg/dL (8.5-10.1); Chloride 102 mmol/L (98-107); Creatinine, Serum 1.69 mg/dL (0.70-1.30); EST Glomerular Filtration Rate 42 mL/min (>60); Est Glom Filt Rate - Afr Amer 51 mL/min (>60); Estimated Creatinine Clearance 33.51 ml/min; Glucose 434 mg/dL (74-106); Potassium 4.7 mmol/L (3.5-5.1); Sodium Level 138 mmol/L (136-145)
[2021-04-08 14:15] LABS: Platelet Estimate ADEQUATE (ADEQ); Red Cell Morphology NORM C+C NORMAL (NORM C&C)
--- NOTE | 2021-04-08 15:39 | EX.ED.DYSGE1 ---
HPI History of Present Illness Chief Complaint: General Illness Narrative Narrative: 80-year-old male presenting with weakness, mild cough, decreased p.o. intake for about a week. Patient's has been sick as well. Patient is not having any fever or chills. He has no loss of taste or smell. Patient is not actually vomiting he just does not want to eat. He states he is making urine. He denies chest pain or shortness of breath. He states that his blood sugars have been running in the 300s this week. He is on Metformin 500 mg p.o. twice daily as well as Lantus [address] [facility] Medical History Benign essential hypertension Cataract Diabetes Diabetes mellitus gallbladder Hearing problem Hernia Hypertension Hypothyroidism Hypothyroidism (acquired) Thyroid disease Vision problem Home Medications Levothyroxine 150 mcg PO DAILY 03/17/14 [History Last Taken Unknown] cyanocobalamin (vitamin B-12) 1,000 mcg PO DAILY@0800 03/17/14 [History Last Taken Unknown] lisinopril 20 mg PO DAILY 03/17/14 [History Last Taken Unknown] ferrous sulfate 325 mg PO DAILY 06/25/20 [History Last Taken Unknown] lancets-blood glucose strips #1 combo..pkg 06/27/20 [Rx Last Taken Unknown] metformin 500 mg PO BID #60 tablet 06/27/20 [Rx Last Taken Unknown] cholecalciferol (vitamin D3) 25 mcg (1,000 unit) capsule 25 mcg PO DAILY 07/18/20 [History Last Taken Unknown] pen needle, diabetic, safety 30 gauge x 1/3 #100 ea 12/01/20 [Rx Last Taken Unknown] insulin glargine 14 unit SC DAILY #5 ml 04/08/21 [Rx Last Taken Unknown] ondansetron 4 mg PO Q8H PRN PRN #14 tab 04/08/21 [Rx Last Taken Unknown] Allergy/AdvReac Type Severity Reaction Status Date / Time No Known Allergies Allergy Verified 04/08/21 12:35 Surgical History History of cholecystectomy Social History Smoking Status: Former smoker alcohol intake: current alcohol intake frequency: 0-2 drinks per day substance use type: does not use what type of physical activity do you participate in: walking frequency: daily ROS ROS ED Constitutional Constitutional ED: Denies chills or fever(s) Eyes Eyes: Denies blurry vision or diplopia ENT ENT ED: Denies rhinorrhea or sore throat Cardiovascular Cardiovascular: Denies chest pain or palpitations Respiratory/Chest Respiratory/Chest: Reports cough; Denies dyspnea Gastrointestinal Gastrointestinal: Reports nausea; Denies diarrhea or vomiting Genitourinary Genitourinary ED: Denies dysuria or hematuria Musculoskeletal Musculoskeletal: Denies arthralgias or myalgias Integumentary Denies rash Neurologic Neurologic: Denies headache(s) or paresthesias EXAM Physical Exam Const Vital Signs: 04/08/21 12:32 04/08/21 14:05 04/08/21 18:22 Temperature 97 F L Temperature Source Temporal Pulse Rate 87 75 Respiratory Rate 16 12 18 Respiratory Effort Normal Non-Labored Respiratory Pattern Normal Blood Pressure 117/72 103/74 Blood Pressure Mean 87 Pulse Ox 97 95 95 Oxygen Delivery Method Room Air Room Air Positive well nourished General Appearance ED: NAD; Negative for pallor HEENT Reports dry mucous membranes Mouth ED: Yes dry mucous membranes Mouth: dry mucous membranes Eyes PERRL and EOMs intact bilaterally Resp normal respiratory effort and clear to auscultation bilaterally Cardio regular rate and regular rhythm GI normal to inspection, nondistended, normoactive bowel sounds Extremity normal to inspection Neuro oriented x3 and CN's II-XII intact bilaterally Sensorium / Orientation: alert Psych mental status grossly normal Skin General Skin Exam: Negative for jaundice or pallor MDM MDM MDM Narrative Medical decision making narrative: Patient presenting with generalized weakness, hyperglycemia, decreased p.o. intake. Patient tested positive for COVID-19 today. CBC shows no leukocytosis. Patient is not lymphopenic or leukopenic. BMP shows that he is dehydrated and has creatinine of 1.69 which is new since June when it was 1.13. Patient was given a liter of IV fluids and Zofran. He is also hyperglycemic without an anion gap elevation. Fluid should help this. Chest x-ray my interpretation is no acute cardiopulmonary process. EKG is sinus rhythm with ventricular rate of 83 bpm without sign of ischemic change. I spoke with Chris Santos and she recommends that he increase his Lantus to 14 units daily and keep his Metformin the same. He will hold his lisinopril as well. Patient will be given Zofran for home and he is encouraged to drink plenty of fluids. He will be referred for monoclonal antibodies. Impression: 1. Acute kidney injury 2. COVID-19 3. generalized weakness Lab Data Attestation: I reviewed the patient's lab results. Labs: Laboratory Results - last 24 hr 04/08/21 04/08/21 13:40 13:40 WBC 4.5 RBC 4.93 Hgb 14.5 Hct 44.0 MCV 89.2 MCH 29.4 MCHC 33.0 RDW Std Deviation 41.7 RDW Coeff of Moise 12.7 Plt Count 167 MPV 11.2 Immature Gran % (Auto) 1.100 H Neut % (Auto) 71.6 H Lymph % (Auto) 19.5 Lake % (Auto) 7.6 Eos % (Auto) 0.0 Baso % (Auto) 0.2 Absolute Neuts (auto) 3.2 Absolute Lymphs (auto) 0.87 Nucleated RBC % 0 Platelet Estimate ADEQUATE RBC Morphology NORM C+C Sodium 138 Potassium 4.7 Chloride 102 Carbon Dioxide 21.0 Anion Gap 15 BUN 42 H Creatinine 1.69 H Estim Creat Clear Calc 33.51 Est GFR (MDRD) Af Amer 51 L Est GFR (MDRD) Non-Af 42 L BUN/Creatinine Ratio 24.9 H Glucose 434 H Calcium 9.3 Radiography Diagnostic Testing: Clinical Impression(s) from Imaging Studies Chest X-Ray 04/08/21 13:10 IMPRESSION: Normal x-ray examination of the chest. Electronically Signed: Irwin Elise MD at 13:39 EST Tel , Service support , Discharge Plan Triage Chief Complaint: General Illness ED Provider: Pablito Oswald Dx/Rx/DC Orders Instructions: Coronavirus Disease 2019 (COVID-19): Caring for Yourself or Others, Acute Kidney Failure Dc Prescriptions: New ondansetron 4 mg tablet,disintegrating 4 mg PO Q8H PRN PRN (Reason: Nausea) Qty: 14 RF: 0 Changed insulin glargine 100 UNITS/ML insulin pen 14 unit SC DAILY Qty: 5 RF: 1 Held lisinopril 10 MG tablet 20 mg PO DAILY RF: 0 Hold Instructions: Hold lisinopril until follow-up with your physician in renal function has improved No Action cholecalciferol (vitamin D3) 25 mcg (1,000 unit) capsule 25 mcg PO DAILY RF: 0 cyanocobalamin (vitamin B-12) 500 MCG tablet 1,000 mcg PO DAILY@0800 RF: 0 Levothyroxine 150 mcg PO DAILY RF: 0 ferrous sulfate 325 MG tablet 325 mg PO DAILY RF: 0 (DME) lancets-blood glucose strips 1 EACH combo pack 1 each MC BID Qty: 1 RF: 1 metformin 500 MG tablet 500 mg PO BID Qty: 60 RF: 1 (DME) pen needle, diabetic, safety 30 gauge x 1/3 needle 1 ea MISCELL. UD Qty: 100 RF: 6 Primary Care Provider: Kb Valdez Referrals: Kb Valdez MD [Primary Care Provider] - Activity Restrictions/Additional Instructions: I wrote you for Zofran for nausea so that you could drink plenty of fluids. Please make sure you are drinking plenty of fluids. You are to hold your lisinopril until your primary care physician recheck your kidney function. Your Lantus has been increased to 14 units subcu daily. You are to call your doctor's office tomorrow as they want you to check in. Disposition Disposition: Home, Self Care Discharge Date/Time: 04/08/21 18:40
[2021-04-08] MEDS: Ondansetron 4 MG/2 ML Vial IV (15:44)
[2021-04-08] MEDS: 0.9% Normal Saline 1,000 ML 999 ML IV (15:44)
[2021-04-08 18:22] VITALS: BP 103/74; PULSE 75; RESP 18; O2SAT 95
== END 2021-04-08 18:40 | disposition home or self-care (01) ==
PROVIDERS: Emergency Provider Student in an Organized Health Care Education/Training Program; PCP Family Medicine; Visit Provider Student in an Organized Health Care Education/Training Program
DX: U07.1 COVID-19 (principal); N17.9 Acute kidney failure, unspecified; E11.65 Type 2 diabetes mellitus with hyperglycemia; Z79.4 Long term (current) use of insulin; I10 Essential (primary) hypertension; E03.9 Hypothyroidism, unspecified; E86.0 Dehydration; Z79.84 Long term (current) use of oral hypoglycemic drugs; Z79.899 Other long term (current) drug therapy; Z87.891 Personal history of nicotine dependence
CPT/HCPCS: 71045; 80048; 85025; 87426; 93005; 96361; 96374; 99283; J7030; A4216; J2405

== ENCOUNTER 2021-06-11 09:05 | Outpatient (CLI) | payer MEDICARE, SELFPAY ==
[2021-06-11 12:32] LABS: Anion Gap 5 (5-15); BUN 23 mg/dL (7-18); BUN/Creat Ratio 21.1 RATIO (10-20); Calcium,Total 8.9 mg/dL (8.5-10.1); Chloride 105 mmol/L (98-107); Creatinine, Serum 1.09 mg/dL (0.70-1.30); EST Glomerular Filtration Rate 69 mL/min (>60); Est Glom Filt Rate - Afr Amer 84 mL/min (>60); Glucose 430 mg/dL (74-106); Potassium 4.3 mmol/L (3.5-5.1); Sodium Level 140 mmol/L (136-145); Thyroid Stim Hormone (TSH) 0.14 uIU/mL (0.358-3.74)
== END 2021-06-11 23:59 | disposition home or self-care (01) ==
LOC: BIMLAB 09:05
PROVIDERS: PCP Family Medicine; Referring Provider Nurse Practitioner Family; Visit Provider Nurse Practitioner Family
DX: N17.9 Acute kidney failure, unspecified (principal); E11.42 Type 2 diabetes mellitus with diabetic polyneuropathy; Z79.4 Long term (current) use of insulin; E03.9 Hypothyroidism, unspecified
CPT/HCPCS: 36415; 80048; 84443

== ENCOUNTER 2022-06-05 16:30 | Inpatient (IN) | payer MEDICARE, SELFPAY ==
[2022-06-05 16:31] VITALS: BP 122/74; PULSE 136; RESP 16; TEMP 38.3; O2SAT 96
--- NOTE | 2022-06-05 17:42 | EDS_ITS ---
HPI History of Present Illness Chief Complaint: General Illness Narrative Narrative: 81-year-old male past medical history of hypertension, diabetes, hypothyroidism presents with feelings of malaise and fatigue, and slightly elevated blood sugars. He states he started not feeling well today. He took his blood sugar and it was elevated in the 200s. He denies any nausea or vomiting. No dysuria or hematuria, no problems with bowel movements. He was not feeling well and when they brought him to the emergency department they noticed that he had a slight fever. He denies any exacerbating or alleviating factors, just stating that he did not feel well. No cough, runny nose, sore throat, or other symptoms. However, his did state that he felt chills this morning. [facility] Medical History Benign essential hypertension Cataract Diabetes Diabetes mellitus gallbladder Hearing problem Hernia Hypertension Hypothyroidism Hypothyroidism (acquired) Thyroid disease Vision problem Home Medications Levothyroxine 137 mcg PO DAILY hypothyroidism 03/17/14 [History Last Taken Unknown] cyanocobalamin (vitamin B-12) 500 mcg tablet 1,000 mcg PO DAILY@0800 03/17/14 [History Last Taken Unknown] ferrous sulfate 325 mg (65 mg iron) tablet 325 mg PO DAILY anemia 06/25/20 [History Last Taken Unknown] lancets 30 gauge and blood glucose strips combo pack ##1 06/27/20 [Rx Last Taken Unknown] cholecalciferol (vitamin D3) 25 mcg (1,000 unit) capsule 25 mcg PO DAILY 07/18/20 [History Last Taken Unknown] pen needle, diabetic, safety 30 gauge x 3 #100 ea 04/12/21 [Rx Last Taken Unknown] glimepiride 2 mg tablet 2 mg PO BID #180 tabs 09/12/21 [Rx Last Taken Unknown] metformin 500 mg tablet,extended release 24 hr 1,000 mg PO BID diabetes #360 tabs 09/12/21 [Rx Last Taken Unknown] lisinopril 20 mg tablet 20 mg PO DAILY 03/18/22 [History Last Taken Unknown] insulin aspart U-100 100 unit/mL (3 mL) subcutaneous pen (Novolog FlexPen U-100 Insulin aspart) 10 unit subcut DINNER 06/05/22 [History Last Taken Unknown] insulin aspart U-100 100 unit/mL (3 mL) subcutaneous pen (Novolog FlexPen U-100 Insulin aspart) 16 unit subcut BREAKFAST 06/05/22 [History Last Taken Unknown] Allergy/AdvReac Type Severity Reaction Status Date / Time No Known Allergies Allergy Verified 06/05/22 16:34 Surgical History History of cholecystectomy Social History Smoking Status: Former smoker alcohol intake: current alcohol intake frequency: 0-2 drinks per day substance use type: does not use what type of physical activity do you participate in: walking frequency: daily ROS ROS ED ROS Narrative Constitutional: Positive fever, positive chills. Positive malaise and fatigue. HEENT: No sore throat. No neck pain. No loss of vision. No rhinorrhea. Cardiovascular: No chest pain. No palpitations. No pedal edema. Respiratory: No cough, no shortness of breath. Abdominal: No abdominal pain. No nausea. No vomiting. Genitourinary: No dysuria. No hematuria. Musculoskeletal: No myalgias. No arthralgias. Neurologic: No headaches. No dizziness. No lightheadedness. Skin: No rash. No change in color. Psychiatric: No depression. No anxiety. EXAM Physical Exam Narrative Exam Narrative: Afebrile. Vital signs noted. HEENT: Normocephalic. Atraumatic. PERRL, EOMI. Neck soft and supple. No point tenderness or step off. Cardiovascular: Positive tachycardia. No murmurs, rubs, or gallops appreciated. Respiratory: No tachypnea. Lungs clear to auscultation bilaterally. Gastrointestinal: Abdomen soft, nontender, with normoactive bowel sounds. No rebound or guarding. Neurological: Awake. Alert. Nonfocal, nonlateralizing. Skin: No rash. Normal color. No pallor. Musculoskeletal: No pedal edema. Full range of motion extremities. Const Vital Signs: 06/05/22 16:31 06/05/22 18:34 06/05/22 18:40 Temperature 100.9 F H 102.9 F H Temperature Source Temporal Oral Pulse Rate 136 H 105 H Respiratory Rate 16 18 Respiratory Effort Respiratory Pattern Blood Pressure 122/74 H 144/79 H Blood Pressure Mean 90 100 Pulse Ox 96 96 Oxygen Delivery Method Room Air Room Air Room Air 06/05/22 18:41 06/05/22 18:54 06/05/22 21:22 Temperature 102.9 F H Temperature Source Oral Pulse Rate 101 H 120 H Respiratory Rate 22 H 18 Respiratory Effort Normal Non-Labored Respiratory Pattern Tachypnea Blood Pressure 131/78 H 113/70 Blood Pressure Mean 95 84 Pulse Ox 97 95 Oxygen Delivery Method Room Air Room Air MDM MDM MDM Narrative Medical decision making narrative: In triage, patient had elevated temperature of 100.9 ?F and was tachycardic at 136 bpm. Sepsis work-up was pursued. I will also obtain an EKG to see if this is a regular rhythm versus atrial fibrillation. EKG was obtained and interpreted by myself which demonstrates sinus tachycardia at [address] changes. No STEMI. Blood cultures are currently pending. In review of his laboratory work he has an elevated white count of 11.6 with hemoglobin 12.8. Platelet count normal at 155. Coagulation studies are negative with an INR of 1.1 and an APTT of 25. Electrolyte panel shows sodium slightly low at 3.4 which was replaced orally with a BUN of 34 and a creatinine of 1.20. Glucose elevated at 166 with a normal anion gap of 7. LFTs show an AST low at 11 and an ALT low at 14. Lactic acid is elevated at 2.9. Urinalysis shows 10- 25 WBCs with 2+ bacteria. Chest x-ray interpreted by myself shows no evidence of an acute pulmonary process, no pneumonia or pneumothorax. I reviewed the radiology report which confirms my interpretation. Respiratory swabs were negative for COVID and influenza. At this point in time, I do feel that the source of his sepsis may be secondary to a UTI. He did have an elevated temperature of 102.9 even after Tylenol. He received Rocephin as an antibiotic. Patient was discussed with Dr. Davis for admission to the PCU. Patient is in stable condition. Lab Data Attestation: I reviewed the patient's lab results. Labs: Laboratory Results - last 24 hr 06/05/22 06/05/22 06/05/22 18:04 18:04 18:04 WBC 11.6 H RBC 4.25 L Hgb 12.8 L Hct 39.0 L MCV 91.8 MCH 30.1 MCHC 32.8 RDW Std Deviation 40.7 RDW Coeff of Moise 12.1 Plt Count 155 MPV 10.9 Immature Gran % (Auto) 0.500 Neut % (Auto) 93.5 H Lymph % (Auto) 3.7 L [place] % (Auto) 1.8 Eos % (Auto) 0.2 Baso % (Auto) 0.3 Absolute Neuts (auto) 10.8 H Absolute Lymphs (auto) 0.43 L Nucleated RBC % 0 Differential Comment SCANNED PT 13.6 INR 1.1 APTT 25.0 Sodium 144 Potassium 3.4 L Chloride 110 H Carbon Dioxide 27.0 Anion Gap 7 BUN 34 H Creatinine 1.20 Estim Creat Clear Calc 49.70 Est GFR (MDRD) Af Amer 75 Est GFR (MDRD) Non-Af 62 BUN/Creatinine Ratio 28.3 H Glucose 166 H Lactic Acid Calcium 9.3 Total Bilirubin 0.50 AST 11 L ALT 14 L Alkaline Phosphatase 58 Total Protein 6.4 Albumin 3.4 Globulin 3.0 Albumin/Globulin Ratio 1.1 Urine Color Urine Clarity Urine pH Ur Specific [place] Urine Protein Urine Glucose (UA) Urine Ketones Urine Occult Blood Urine Nitrite Urine Bilirubin Urine Urobilinogen Ur Leukocyte Esterase Urine RBC Urine WBC Ur Squamous Epith Cells Urine Bacteria Urine Mucus 06/05/22 06/05/22 18:04 20:28 WBC RBC Hgb Hct MCV MCH MCHC RDW Std Deviation RDW Coeff of Moise Plt Count MPV Immature Gran % (Auto) Neut % (Auto) Lymph % (Auto) [place] % (Auto) Eos % (Auto) Baso % (Auto) Absolute Neuts (auto) Absolute Lymphs (auto) Nucleated RBC % Differential Comment PT INR APTT Sodium Potassium Chloride Carbon Dioxide Anion Gap BUN Creatinine Estim Creat Clear Calc Est GFR (MDRD) Af Amer Est GFR (MDRD) Non-Af BUN/Creatinine Ratio Glucose Lactic Acid 2.9 H* Calcium Total Bilirubin AST ALT Alkaline Phosphatase Total Protein Albumin Globulin Albumin/Globulin Ratio Urine Color Yellow Urine Clarity Cloudy Urine pH 6.0 Ur Specific [place] 1.010 Urine Protein 30 H Urine Glucose (UA) 100 H Urine Ketones Negative Urine Occult Blood 10 H Urine Nitrite Negative Urine Bilirubin Negative Urine Urobilinogen Normal Ur Leukocyte Esterase 500 H Urine RBC 0 SEEN Urine WBC 10-25 SEEN Ur Squamous Epith Cells 0-5 SEEN Urine Bacteria 2+ Urine Mucus 0 SEEN Radiography Diagnostic Testing: Clinical Impression(s) from Imaging Studies Chest X-Ray 06/05/22 18:56 IMPRESSION: No radiographic evidence of acute cardiopulmonary disease. Electronically Signed: Chad Cabral MD at 19:22 EST Reading Location ID and State: [facility] / [place] , Service support , Discharge Plan Dx/Rx/DC Orders Clinical Impression: Diabetes, Sepsis, UTI (urinary tract infection), Hypokalemia, Mild dehydration Disposition Disposition: Acute Care [facility]
--- NOTE | 2022-06-05 17:50 | EKG12_ITS ---
Test Reason : GENERAL Blood Pressure : / mmHG Vent. Rate : 111 BPM Atrial Rate : 111 BPM P-R Int : 148 ms QRS Dur : 084 ms QT Int : 318 ms P-R-T Axes : 000 -21 066 degrees QTc Int : 432 ms Sinus tachycardia Inferior infarct , age undetermined Abnormal ECG Confirmed by PATI SOLIS, ELSA ([id number]), editor city YVON CAPONE ([id number]) on 06/10/2022 9:58:52 AM Referred By: Confirmed By:LION KRUEGER MD
[2022-06-05 18:22] LABS: Absolute Lymphocyte Count 0.43 X10^3/uL (0.83-4.51); Absolute Neutrophil Count 10.8 X10^3/uL (2.0-7.7); Basophil# 0.03 X10^3/uL; Basophil% 0.3 % (0-1); Eosinophil# 0.02 X10^3/uL; Eosinophils% 0.2 % (0-5); Hemoglobin 12.8 g/dL (13.0-16.5); Lymphocyte # 0.43 X10^3/ul (0.83-4.51); Lymphocyte % 3.7 % (19-41); Mean Corp Hgb Conc 32.8 g/dL (32-36); Mean Corpuscular Hgb 30.1 pg (27.0-32.0); Mean Corpuscular Volume 91.8 fL (80-94); Mean Platelet Vol. 10.9 fl (6.2-12.0); Monocyte# 0.21 X10^3/uL; Monocyte% 1.8 % (0-10); NRBC Flagged by Analyzer 0 % (0-5); Neutrophil # 10.81 X10^3/uL (2.7-7.7); Neutrophil % 93.5 % (47-70); POSITIVE DIFFERENTIAL YES; Platelet Count 155 K/mm3 (150-450); RBC Distribution Width CV 12.1 % (11.6-14.6); RBC Distribution Width SD 40.7 fl (35.1-43.9); Red Blood Count 4.25 M/mm3 (4.6-6.2); White Blood Count 11.6 K/mm3 (4.4-11.0)
[2022-06-05 18:24] LABS: Differential Indicated SCAN CRITERIA MET
[2022-06-05 18:27] VITALS: BMI 22.2
[2022-06-05 18:31] LABS: International Normalized Ratio 1.1; Prothrombin Time (Protime)PT. 13.6 SECONDS (11.7-14.9)
[2022-06-05] MEDS: 0.9% Normal Saline 1,000 ML 999 ML IV (18:31)
[2022-06-05] MEDS: Acetaminophen 325 MG Tablet 650 MG PO (18:31)
[2022-06-05 18:33] LABS: ALB/GLOB Ratio 1.1 RATIO (0.9-2.4); AST(SGOT) 11 U/L (15-37); Alanine Aminotransfer ALT/SGPT 14 U/L (16-61); Albumin, Serum 3.4 g/dL (3.2-5.0); Alkaline Phosphatase 58 U/L (45-117); Anion Gap 7 (5-15); BUN 34 mg/dL (7-18); BUN/Creat Ratio 28.3 RATIO (10-20); Calcium,Total 9.3 mg/dL (8.5-10.1); Chloride 110 mmol/L (98-107); EST Glomerular Filtration Rate 62 mL/min (>60); Est Glom Filt Rate - Afr Amer 75 mL/min (>60); Glucose 166 mg/dL (74-106); Potassium 3.4 mmol/L (3.5-5.1); Protein, Total 6.4 g/dL (6.4-8.2); Sodium Level 144 mmol/L (136-145)
[2022-06-05 18:34] VITALS: BP 144/79; PULSE 105; RESP 18; TEMP 39.4; O2SAT 96
[2022-06-05 18:41] LABS: Differential Comment SCANNED
[2022-06-05 18:48] LABS: Lactic Acid 2.9 mmol/L (0.4-1.9)
[2022-06-05 18:54] VITALS: BP 131/78; PULSE 101; RESP 22; TEMP 39.4; O2SAT 97
--- NOTE | 2022-06-05 18:56 | RAD_ITS ---
EXAM: XR CHEST, 1 VIEW CLINICAL INDICATION: Fever STATES HE STARTED SHAKING AND SAID HIS LEGS WERE HURTING, PT DENIES ANY COMPLAINTS OTHER THAN FEELING A LITTLE SHAKY TECHNIQUE: Frontal view of the chest. This report was created using [employer] report generation technology. COMPARISON: 04.08.21 FINDINGS: LUNGS AND PLEURAL SPACES: Unremarkable. No consolidation or edema. No pneumothorax. No effusion. HEART: Unremarkable. Cardiac silhouette not enlarged. MEDIASTINUM: Central airways and mediastinal contour are unremarkable. BONES/JOINTS: Unremarkable. SOFT TISSUES: Unremarkable. RAD/Chest 1 View (Portable) IMPRESSION: No radiographic evidence of acute cardiopulmonary disease. Electronically Signed: Chad Cabral MD at 19:22 EST ,
--- NOTE | 2022-06-05 19:00 | ED.RN ---
DR MANNING NOTIFIED PT TRIGGERING SEPSIS
[2022-06-05 20:29] LABS: Mucous, Urine 0 SEEN /hpf (<or=2+); Red Blood Cells-Urine 0 SEEN /hpf (0-5)
[2022-06-05 20:32] LABS: Color, Urine Yellow (Yellow); Glucose, Dipstick 100 mg/dl (Normal); Ketone-Dipstick Negative (Negative); Leukocyte Esterase-Dipstick 500 /ul (Negative); Nitrite-Dipstick Negative (Negative); Occult Blood-Urine 10 /ul (Negative); Protein-Dipstick 30 mg/dl (Negative); Urine Bilirubin Dipstick Negative (Negative); Urine Clarity Cloudy (Clear); Urine Urobilinogen Normal (Normal)
[2022-06-05 20:40] LABS: White Blood Cells 10-25 SEEN /hpf (0-5)
[2022-06-05 20:43] LABS: Bacteria 2+ /hpf (None Seen)
[2022-06-05 20:44] LABS: Squamous Epithelial Cells - UA 0-5 SEEN /hpf (0-5)
[2022-06-05 21:22] VITALS: BP 113/70; PULSE 120; RESP 18; O2SAT 95
[2022-06-05] MEDS: Ceftriaxone 1 GM/50 ML BAG IV (21:32)
[2022-06-05 22:12] LABS: Reflex Lactate? Y
--- NOTE | 2022-06-05 22:24 | PCM.HP.STD ---
HPI - General General Date of Admission: 06/05/22 Date of Service: 06/05/22 Chief Complaint: Malaise HPI Narrative JEAN-CLAUDE DOUGLAS, is a 81 M with a significant history of hypertension; hypothyroidism and diabetes who presents emergency department with malaise that started few before presentation. Associated with symptoms is chills and rigors. Also patient had bilateral leg pain. Patient denies any urinary symptoms. While at the emergency department and after patient has received his IV antibiotics patient had loose stools. [facility] Medical History Benign essential hypertension Cataract Diabetes Diabetes mellitus gallbladder Hearing problem Hernia Hypertension Hypothyroidism Hypothyroidism (acquired) Thyroid disease Vision problem Home Medications Levothyroxine 137 mcg PO DAILY hypothyroidism 03/17/14 [History Last Taken Unknown] cyanocobalamin (vitamin B-12) 500 mcg tablet 1,000 mcg PO DAILY@0800 03/17/14 [History Last Taken Unknown] ferrous sulfate 325 mg (65 mg iron) tablet 325 mg PO DAILY anemia 06/25/20 [History Last Taken Unknown] lancets 30 gauge and blood glucose strips combo pack ##1 06/27/20 [Rx Last Taken Unknown] cholecalciferol (vitamin D3) 25 mcg (1,000 unit) capsule 25 mcg PO DAILY 07/18/20 [History Last Taken Unknown] pen needle, diabetic, safety 30 gauge x 1/3 #100 ea 04/12/21 [Rx Last Taken Unknown] glimepiride 2 mg tablet 2 mg PO BID #180 tabs 09/12/21 [Rx Last Taken Unknown] metformin 500 mg tablet,extended release 24 hr 1,000 mg PO BID diabetes #360 tabs 09/12/21 [Rx Last Taken Unknown] lisinopril 20 mg tablet 20 mg PO DAILY 03/18/22 [History Last Taken Unknown] insulin aspart U-100 100 unit/mL (3 mL) subcutaneous pen (Novolog FlexPen U-100 Insulin aspart) 10 unit subcut DINNER 06/05/22 [History Last Taken Unknown] insulin aspart U-100 100 unit/mL (3 mL) subcutaneous pen (Novolog FlexPen U-100 Insulin aspart) 16 unit subcut BREAKFAST 06/05/22 [History Last Taken Unknown] Allergy/AdvReac Type Severity Reaction Status Date / Time No Known Allergies Allergy Verified 06/05/22 16:34 Family History Other Cancer Surgical History History of cholecystectomy Social History Smoking Status: Former smoker alcohol intake: current alcohol intake frequency: 0-2 drinks per day substance use type: does not use what type of physical activity do you participate in: walking frequency: daily ROS ROS Narrative Pertinent positives and pertinent negatives as noted in HPI. All other systems were reviewed and are negative Vital Signs Vital Signs Vital Signs: 06/05/22 16:31 06/05/22 18:34 06/05/22 18:40 Temperature 100.9 F H 102.9 F H Temperature Source Temporal Oral Pulse Rate 136 H 105 H Respiratory Rate 16 18 Respiratory Effort Respiratory Pattern Blood Pressure 122/74 H 144/79 H Blood Pressure Mean 90 100 Pulse Ox 96 96 Oxygen Delivery Method Room Air Room Air Room Air 06/05/22 18:41 06/05/22 18:54 06/05/22 21:22 Temperature 102.9 F H Temperature Source Oral Pulse Rate 101 H 120 H Respiratory Rate 22 H 18 Respiratory Effort Normal Non-Labored Respiratory Pattern Tachypnea Blood Pressure 131/78 H 113/70 Blood Pressure Mean 95 84 Pulse Ox 97 95 Oxygen Delivery Method Room Air Room Air Weight Weight: 70.4 kg Body Mass Index (BMI) 22.2 Physical Exam Narrative Physical exam: General: Well-nourished, well-developed. Head: Normocephalic, atraumatic, no tenderness Eyes: Vision is grossly intact. EOMI ENT, no trauma, moist mucous membranes, no rhinorrhea Neck: Nontender, No thyromegaly. CVS: Regular rate and rhythm. S1-S2 present. No murmur, gallop or rub. Respiratory : clear to auscultation bilaterally, chest wall nontender, no wheezing Abdomen: Soft, nontender, nondistended, normal bowel sounds, no masses : Deferred Back: Nontender, no CVA tenderness, no midline spinal tenderness, deformities, step-offs Extremities: Nontender full range of motion, no trauma Skin: Normal color, no trauma, abrasions Neuro: Alert, oriented, cranial nerves II through XII grossly intact. Psychiatry: Normal mood. Normal affect. Not depressed. Not anxious. Results Lab / Micro Data Result Diagrams: 06/05/22 18:04 06/05/22 18:04 Labs: Laboratory Results - last 24 hr 06/05/22 18:04: WBC 11.6 H, RBC 4.25 L, Hgb 12.8 L, Hct 39.0 L, MCV 91.8, MCH 30.1, MCHC 32.8, RDW Std Deviation 40.7, RDW Coeff of Moise 12.1, Plt Count 155, MPV 10.9, Immature Gran % (Auto) 0.500, Neut % (Auto) 93.5 H, Lymph % (Auto) 3.7 L, [place] % (Auto) 1.8, Eos % (Auto) 0.2, Baso % (Auto) 0.3, Absolute Neuts (auto) 10.8 H, Absolute Lymphs (auto) 0.43 L, Nucleated RBC % 0, Differential Comment SCANNED 06/05/22 18:04: PT 13.6, INR 1.1, APTT 25.0 06/05/22 18:04: Sodium 144, Potassium 3.4 L, Chloride 110 H, Carbon Dioxide 27.0, Anion Gap 7, BUN 34 H, Creatinine 1.20, Estim Creat Clear Calc 49.70, Est GFR (MDRD) Af Amer 75, Est GFR (MDRD) Non-Af 62, BUN/Creatinine Ratio 28.3 H, Glucose 166 H, Calcium 9.3, Total Bilirubin 0.50, AST 11 L, ALT 14 L, Alkaline Phosphatase 58, Total Protein 6.4, Albumin 3.4, Globulin 3.0, Albumin/Globulin Ratio 1.1 06/05/22 18:04: Lactic Acid 2.9 H* 06/05/22 20:28: Urine Color Yellow, Urine Clarity Cloudy, Urine pH 6.0, Ur Specific [place] 1.010, Urine Protein 30 H, Urine Glucose (UA) 100 H, Urine Ketones Negative, Urine Occult Blood 10 H, Urine Nitrite Negative, Urine Bilirubin Negative, Urine Urobilinogen Normal, Ur Leukocyte Esterase 500 H, Urine RBC 0 SEEN, Urine WBC 10-25 SEEN, Ur Squamous Epith Cells 0-5 SEEN, Urine Bacteria 2+, Urine Mucus 0 SEEN Micro: Microbiology 06/05/22 18:45 Nasal Secretion SARS-CoV-2 & FLU Antigen (Rapid) - Final Radiology Impression Chest X-Ray 06/05/22 18:56 IMPRESSION: No radiographic evidence of acute cardiopulmonary disease. Electronically Signed: Chad Cabral MD at 19:22 EST , Assessment & Plan Assessment/Plan (1) UTI (urinary tract infection): (2) Sepsis: PLAN: Plan Sepsis secondary UTI The patient presented with sepsis due to (UTI) with acute sepsis related organ dysfunction as evidenced by (lactic acidosis with initial lactic acid of 2.9.). SIRS criteria: Tmax of 102.9 Fahrenheit. Heart rate more than 90 organ dysfunction: Lactate more than 2 mmol/L (of note metformin could be contributing) Trend lactic acid. While at the [facility] documented blood pressure was 86/56 (MAP of 66). One MAP was 64. 30 mm/kg bolus normal saline initiated. Urine culture and blood culture ordered emergency department, follow. Diarrhea Enteric pathogen panel. Supportive treatment with IV fluids. Acidophilus ordered. History of hypertension With hypotension Home lisinopril held. Trend blood pressures. Diabetes mellitus Patient with mild hyperglycemia on presentation, not within goal. Home metformin held. Prandial insulin held. Basal insulin continued. Accu-Chek with correction scale insulin ordered. DVT prophylaxis: Subcutaneous Lovenox ordered. Charges/Coding Visit Charges Inpatient E&M: 51768 Init Hosp L3
[2022-06-05] MEDS: Potassium Chloride Oral Tablet 20 MEQ 40 MEQ PO (22:33)
[2022-06-05 22:37] VITALS: BP 100/60; PULSE 107; RESP 16; TEMP 37.5; O2SAT 94
[2022-06-05 23:19] VITALS: BMI 21.2
[2022-06-05 23:24] VITALS: BP 92/50; PULSE 104; RESP 18; TEMP 36.9; O2SAT 96
[2022-06-06] VITALS (7 sets, daily range): BP systolic 86–100; BP diastolic 49–66; PULSE 79–91; RESP 16–18; TEMP 37–37.6; O2SAT 92–96
[2022-06-06 00:21] LABS: Lactic Acid 3.7 mmol/L (0.4-1.9)
[2022-06-06] MEDS: 0.9% Normal Saline 1,000 ML 999 ML IV ×2 (03:43→04:42)
[2022-06-06] MEDS: Levothyroxine 137 MCG Tablet PO (04:43)
[2022-06-06 05:07] LABS: Lactic Acid 3.2 mmol/L (0.4-1.9)
[2022-06-06 05:41] LABS: Absolute Neutrophil Count 15.6 X10^3/uL (2.0-7.7); Basophil# 0.04 X10^3/uL; Basophil% 0.2 % (0-1); Hemoglobin 11.7 g/dL (13.0-16.5); Lymphocyte % 1.8 % (19-41); Mean Corp Hgb Conc 32.5 g/dL (32-36); Mean Corpuscular Hgb 30.5 pg (27.0-32.0); Mean Corpuscular Volume 93.8 fL (80-94); Mean Platelet Vol. 11.6 fl (6.2-12.0); Monocyte# 0.61 X10^3/uL; Monocyte% 3.6 % (0-10); NRBC Flagged by Analyzer 0 % (0-5); Neutrophil # 15.61 X10^3/uL (2.7-7.7); Neutrophil % 93.4 % (47-70); POSITIVE DIFFERENTIAL YES; POSITIVE MORPHOLOGY YES; Platelet Count 149 K/mm3 (150-450); RBC Distribution Width CV 12.4 % (11.6-14.6); RBC Distribution Width SD 42.6 fl (35.1-43.9); Red Blood Count 3.84 M/mm3 (4.6-6.2); White Blood Count 16.7 K/mm3 (4.4-11.0)
[2022-06-06 05:46] LABS: Differential Indicated SCAN CRITERIA MET
[2022-06-06 06:22] LABS: Differential Comment SCANNED
[2022-06-06] MEDS: Insulin Lispro 100 UNIT/ML INSULN.PEN SC ×2 (06:31→12:19)
[2022-06-06 06:45] LABS: Bedside Glucose 322 mg/dL (74-106)
[2022-06-06 06:45] LABS: Anion Gap 12 (5-15); BUN 38 mg/dL (7-18); BUN/Creat Ratio 25.7 RATIO (10-20); Calcium,Total 8.3 mg/dL (8.5-10.1); Chloride 109 mmol/L (98-107); Creatinine, Serum 1.48 mg/dL (0.70-1.30); EST Glomerular Filtration Rate 49 mL/min (>60); Est Glom Filt Rate - Afr Amer 59 mL/min (>60); Estimated Creatinine Clearance 38.53 ml/min; Glucose 359 mg/dL (74-106); Potassium 4.5 mmol/L (3.5-5.1); Sodium Level 142 mmol/L (136-145)
[2022-06-06 08:26] LABS: Reflex Lactate? Y
[2022-06-06] MEDS: Cyanocobalamin 500 MCG Tablet 1000 MCG PO (09:06)
[2022-06-06] MEDS: Cholecalciferol (VIT D3) 25 MCG TABLET (1,000 UNITS) PO (09:06)
[2022-06-06] MEDS: Glimepiride 2 MG Tablet PO ×2 (09:06→16:14)
[2022-06-06] MEDS: Enoxaparin 40 MG/0.4 ML Syringe SC (09:08)
[2022-06-06] MEDS: 0.9% Saline Lock 10 ML Syringe IV (09:08)
[2022-06-06 09:22] LABS: Lactic Acid 3.3 mmol/L (0.4-1.9)
--- NOTE | 2022-06-06 11:10 | CASEMGMT ---
Per physician and TYPE COPYIST patient is not alert and oriented enough to complete assessment at this time. SW called patient's , but there was no answer. SW will continue to try and speak with patient's . Milagro RODRIGUES
--- NOTE | 2022-06-06 11:39 | CASEMGMT ---
Assessment- SW completed an assessment with patient's at bedside. SW also confirmed addresses and phone numbers for patient and contacts. Living situation- Patient lives with his in a 1 story home with 3 entry steps PCP: José Miguel Specialists: Dr Kemp-Endocrinology Pharmacy: [facility] DME:? cane, walker, grab bars, and shower chair ADL's/IADL's: Patient normally walks without any devices. Patient drives and showers himself. Patient's manages medications, cleans, cooks, and pays bills. Patient does drive. Per she gives patient a grocery list and he goes to the store. Past SNF/rehab: None Past HH: [facility] LW: None POA:? None Patient's would like to take patient home. She said normally patient does fine until he got dizzy yesterday. Plan: Home vs SNF pending PT/OT thea [employer]ru[employer] LILIA
[2022-06-06] MEDS: Ferrous Sulfate 325 MG Tablet PO (12:15)
[2022-06-06] MEDS: Insulin Glargine-YFGN 100 UNIT/ML Pen 15 UNIT SC (12:15)
[2022-06-06] MEDS: Insulin Lispro 100 UNIT/ML INSULN.PEN 10 UNIT SC ×2 (12:19→17:38)
[2022-06-06 15:21] LABS: Bedside Glucose 414 mg/dL (74-106)
[2022-06-06 17:15] LABS: Bedside Glucose 138 mg/dL (74-106)
[2022-06-06] MEDS: 0.9% Normal Saline 1,000 ML 125 ML IV (17:40)
--- NOTE | 2022-06-06 18:04 | PCM.PN.HOSP ---
Reason for Visit Reason for Visit: Diagnoses Sepsis, unspecified organism (06/05/22) Urinary tract infection, site not specified (06/05/22) Subjective Subjective Patient was seen and examined today, his lactic acid remained elevated today, at the time of this dictation, his temp is 99.7. Patient's pressures been trending lower today, I have decided to place patient on IV fluids. Patient's insulin dosage was adjusted today. Objective Data Objective Data Vital Signs: Vital Signs Temp Pulse Resp BP Pulse Ox O2 Del Method 99.7 F H 85 18 94/54 L 92 Room Air 06/06/22 15:00 06/06/22 15:00 06/06/22 15:00 06/06/22 15:00 06/06/22 15:00 06/06/22 15:00 Oxygen Delivery Method Room Air Weight: 67.3 kg Body Mass Index (BMI) 21.2 Intake & Output: Intake and Output for Last 24 Hours 06/04/22 06/05/22 06/06/22 23:59 23:59 23:59 Intake Total 1050 / 1050 2462.35 / 2462.35 Balance 1050 / 1050 2462.35 / 2462.35 Lab / Micro Data Result Diagrams: 06/06/22 04:21 06/06/22 04:21 Labs: Laboratory Results - last 24 hr 06/05/22 18:04: WBC 11.6 H, RBC 4.25 L, Hgb 12.8 L, Hct 39.0 L, MCV 91.8, MCH 30.1, MCHC 32.8, RDW Std Deviation 40.7, RDW Coeff of Moise 12.1, Plt Count 155, MPV 10.9, Immature Gran % (Auto) 0.500, Neut % (Auto) 93.5 H, Lymph % (Auto) 3.7 L, [place] % (Auto) 1.8, Eos % (Auto) 0.2, Baso % (Auto) 0.3, Absolute Neuts (auto) 10.8 H, Absolute Lymphs (auto) 0.43 L, Nucleated RBC % 0, Differential Comment SCANNED 06/05/22 18:04: PT 13.6, INR 1.1, APTT 25.0 06/05/22 18:04: Sodium 144, Potassium 3.4 L, Chloride 110 H, Carbon Dioxide 27.0, Anion Gap 7, BUN 34 H, Creatinine 1.20, Estim Creat Clear Calc 49.70, Est GFR (MDRD) Af Amer 75, Est GFR (MDRD) Non-Af 62, BUN/Creatinine Ratio 28.3 H, Glucose 166 H, Calcium 9.3, Total Bilirubin 0.50, AST 11 L, ALT 14 L, Alkaline Phosphatase 58, Total Protein 6.4, Albumin 3.4, Globulin 3.0, Albumin/Globulin Ratio 1.1 06/05/22 18:04: Lactic Acid 2.9 H* 06/05/22 20:28: Urine Color Yellow, Urine Clarity Cloudy, Urine pH 6.0, Ur Specific [place] 1.010, Urine Protein 30 H, Urine Glucose (UA) 100 H, Urine Ketones Negative, Urine Occult Blood 10 H, Urine Nitrite Negative, Urine Bilirubin Negative, Urine Urobilinogen Normal, Ur Leukocyte Esterase 500 H, Urine RBC 0 SEEN, Urine WBC 10-25 SEEN, Ur Squamous Epith Cells 0-5 SEEN, Urine Bacteria 2+, Urine Mucus 0 SEEN 06/05/22 23:38: Lactic Acid 3.7 H* 06/06/22 04:21: WBC 16.7 H, RBC 3.84 L, Hgb 11.7 L, Hct 36.0 L, MCV 93.8, MCH 30.5, MCHC 32.5, RDW Std Deviation 42.6, RDW Coeff of Moise 12.4, Plt Count 149 L, MPV 11.6, Immature Gran % (Auto) 1.000 H, Neut % (Auto) 93.4 H, Lymph % (Auto) 1.8 L, [place] % (Auto) 3.6, Eos % (Auto) 0.0, Baso % (Auto) 0.2, Absolute Neuts (auto) 15.6 H, Absolute Lymphs (auto) 0.30 L, Nucleated RBC % 0, Differential Comment SCANNED 06/06/22 04:21: Sodium 142, Potassium 4.5, Chloride 109 H, Carbon Dioxide 21.0, Anion Gap 12, BUN 38 H, Creatinine 1.48 H, Estim Creat Clear Calc 38.53, Est GFR (MDRD) Af Amer 59 L, Est GFR (MDRD) Non-Af 49 L, BUN/Creatinine Ratio 25.7 H, Glucose 359 H, Calcium 8.3 L 06/06/22 04:21: Lactic Acid 3.2 H* 06/06/22 06:27: POC Glucose 322 H 06/06/22 08:49: Lactic Acid 3.3 H* 06/06/22 11:24: POC Glucose 414 H 06/06/22 16:10: POC Glucose 138 H Micro: Microbiology 06/05/22 18:00 Blood Culture (Wb) - Right Wrist Blood Culture - Preliminary 06/05/22 20:28 Urine, Clean Catch Urine Culture - Final Mixed Gram Positive Organisms 06/05/22 18:45 Nasal Secretion SARS-CoV-2 & FLU Antigen (Rapid) - Final Radiography Diagnostic Testing: Radiology Impression Chest X-Ray 06/05/22 18:56 IMPRESSION: No radiographic evidence of acute cardiopulmonary disease. Electronically Signed: Chad Cabral MD at 19:22 EST Reading Location ID and State: [facility]– [place][note 2] / [place] , Service support , Physical Exam Const alert and oriented x3 Constitutional Narrative: Patient appears weak, he is very hard of hearing General Appearance: cooperative, well kempt and well developed Orientation / Consciousness: awake, oriented to person, oriented to place and oriented to time HEENT normocephalic and head/scalp atraumatic Mouth: dry mucous membranes Eyes PERRL, EOMs intact bilaterally and conjunctivae normal Neck supple, no JVD, thyroid normal and no carotid bruits General: trachea midline Resp normal respiratory effort, no retractions, no use of accessory muscles and clear to auscultation bilaterally Auscultation: Negative for rales, rhonchi or wheezes Cardio regular rate, regular rhythm, S1 normal heart sound, S2 normal heart sound, no murmurs, no rub and no gallops GI normal to inspection, nondistended, normoactive bowel sounds, soft to palpation, non-tender and non-distended Extremity no clubbing, cyanosis or edema Skin no rashes or lesions noted General Skin Exam: no breakdown Neuro oriented x3, CN's II-XII intact bilaterally, no focal motor deficits and no sensory deficits noted Sensorium / Orientation: awake and alert Speech: speech normal Psych affect normal Assessment & Plan Assessment/Plan (1) UTI (urinary tract infection): PLAN: Plan 1. Sepsis secondary to acute cystitis-patient's urine culture has grown out mixed gram-positive organisms, I think his presentation is more in keeping however with sepsis with decreased blood pressure, elevated temperature, and elevated white count. Patient also had elevated lactic acid, continue Rocephin at this time. #2 uncontrolled type 2 diabetes-patient's insulin was adjusted, blood sugars will be monitored #3 acute dehydration-patient will be given IV fluids, labs will be rechecked #4 essential hypertension-patient's blood pressure medication will be held on account of hypotension\ #5 hypothyroidism-patient will remain on Synthroid Total clinical time spent by myself addressing patient's medical issues, reviewing all the data, and collaborating with patient's care team: 35 minutes Charges/Coding Visit Charges Inpatient E&M: 98662 Subs Hosp L2
[2022-06-06 22:31] LABS: Bedside Glucose 44 mg/dL (74-106)
[2022-06-06 22:31] LABS: Bedside Glucose 77 mg/dL (74-106)
[2022-06-07 00:16] LABS: Bedside Glucose 130 mg/dL (74-106)
[2022-06-07] MEDS: 0.9% Normal Saline 1,000 ML 125 ML IV ×2 (01:24→09:31)
[2022-06-07 03:20] VITALS: BP 109/65; PULSE 71; RESP 16; TEMP 36.9; O2SAT 97
[2022-06-07] MEDS: Levothyroxine 137 MCG Tablet PO (05:10)
[2022-06-07 07:34] VITALS: O2SAT 95
[2022-06-07] MEDS: Cholecalciferol (VIT D3) 25 MCG TABLET (1,000 UNITS) PO (08:20)
[2022-06-07] MEDS: Insulin Lispro 100 UNIT/ML INSULN.PEN SC (08:21)
[2022-06-07] MEDS: Ferrous Sulfate 325 MG Tablet PO (08:21)
[2022-06-07] MEDS: Glimepiride 2 MG Tablet PO (08:21)
[2022-06-07] MEDS: Enoxaparin 40 MG/0.4 ML Syringe SC (08:21)
[2022-06-07] MEDS: Cyanocobalamin 500 MCG Tablet 1000 MCG PO (08:21)
[2022-06-07] MEDS: Insulin Lispro 100 UNIT/ML INSULN.PEN 10 UNIT SC (08:22)
[2022-06-07 08:40] VITALS: BP 94/56; PULSE 72; RESP 18; TEMP 36.7; O2SAT 94
[2022-06-07 08:56] LABS: Bedside Glucose 213 mg/dL (74-106)
[2022-06-07 09:27] VITALS: O2SAT 93
[2022-06-07 12:20] LABS: Bedside Glucose 63 mg/dL (74-106)
[2022-06-07 14:54] LABS: Absolute Lymphocyte Count 0.73 X10^3/uL (0.83-4.51); Absolute Neutrophil Count 7.2 X10^3/uL (2.0-7.7); Basophil# 0.01 X10^3/uL; Basophil% 0.1 % (0-1); Eosinophil# 0.08 X10^3/uL; Eosinophils% 0.9 % (0-5); Hematocrit 32.1 % (40-54); Hemoglobin 10.2 g/dL (13.0-16.5); Lymphocyte # 0.73 X10^3/ul (0.83-4.51); Lymphocyte % 8.2 % (19-41); Mean Corp Hgb Conc 31.8 g/dL (32-36); Mean Corpuscular Hgb 30.1 pg (27.0-32.0); Mean Corpuscular Volume 94.7 fL (80-94); Mean Platelet Vol. 11.2 fl (6.2-12.0); Monocyte# 0.74 X10^3/uL; Monocyte% 8.3 % (0-10); NRBC Flagged by Analyzer 0 % (0-5); Neutrophil # 7.24 X10^3/uL (2.7-7.7); Neutrophil % 81.5 % (47-70); Platelet Count 119 K/mm3 (150-450); RBC Distribution Width CV 12.5 % (11.6-14.6); RBC Distribution Width SD 43.3 fl (35.1-43.9); Red Blood Count 3.39 M/mm3 (4.6-6.2); White Blood Count 8.9 K/mm3 (4.4-11.0)
--- NOTE | 2022-06-07 14:56 | CASEMGMT ---
SW checked in with patient and his . Patient did better with therapy today. Patient's was present when therapy did their evaluation yesterday. SW asked patient's if she feels she is okay to take patient home at discharge. She feels they will be fine and denies any need for home health. BYRON notified physician. Milagro Scruggs CARD FILER LILIA
--- NOTE | 2022-06-07 16:13 | DCINST_ITS ---
Discharge Instructions Diet Discharge Diet: 1800 Calorie Control Diet Activity Discharge Activity: Return to Normal Activity Weight Bearing Status: Full weight bearing (with walker if needed) Follow Up Care Test Results: Test results from this visit will be discussed in further detail at your follow- up appointment, if applicable. Discharge Plan Admission Admit Date/Time: 06/05/22 22:12 Primary Reason for Your Visit: sepsis, cystitis Attending Provider: Dennys Buenrostro Primary Care Provider: Kb Valdez Consulting Providers: Mk Davis Discharge Orders/Prescriptions Prescriptions: New cephalexin 500 mg capsule 500 mg PO Q12H Qty: 10 0RF Rx Instructions: start on 06/08/22 Continued cholecalciferol (vitamin D3) 25 mcg (1,000 unit) capsule 25 mcg PO DAILY glimepiride 2 mg tablet 2 mg PO BID Qty: 180 3RF metformin 500 mg tablet extended release 24 hr 1,000 mg PO BID Qty: 360 3RF lisinopril 20 mg tablet 20 mg PO DAILY cyanocobalamin (vitamin B-12) 500 MCG tablet 1,000 mcg PO DAILY@0800 Levothyroxine 137 mcg PO DAILY ferrous sulfate 325 MG tablet 325 mg PO DAILY (DME) lancets-blood glucose strips 1 EACH combo pack 1 each MC BID Qty: 1 1RF insulin aspart U-100 [Novolog FlexPen U-100 Insulin] 100 unit/mL (3 mL) Insulin Pen 10 unit SUBCUT DINNER insulin aspart U-100 [Novolog FlexPen U-100 Insulin] 100 unit/mL (3 mL) Insulin Pen 16 unit SUBCUT BREAKFAST (DME) pen needle, diabetic, safety 30 gauge x 1/3 needle 1 ea MISCELL. UD Qty: 100 6RF Rx Instructions: 3x/day Referrals / Follow Up: Kb Valdez MD [Primary Care Provider] - Within 2 Weeks Disposition Disposition (needs filled in before D/C Order can be placed): Home, Self Care
--- NOTE | 2022-06-07 16:29 | DS.PCM_ITS ---
Providers Date of Admission: 06/05/22 Date of Discharge: 06/07/22 Primary Care Physician: Dr. Kb Valdez MD Reason For Visit: SEPSIS SECONDARY TO UTI Diagnosis Discharge Diagnosis (1) UTI (urinary tract infection): Status: Acute Code(s): N39.0 - Urinary tract infection, site not specified Plan 1. Sepsis secondary to acute cystitis-patient's urine culture has grown out mixed gram-positive organisms, I think his presentation is more in keeping however with sepsis with decreased blood pressure, elevated temperature, and elevated white count. Patient also had elevated lactic acid, continue Rocephin at this time. #2 uncontrolled type 2 diabetes-patient's insulin was adjusted, blood sugars will be monitored #3 acute dehydration-patient will be given IV fluids, labs will be rechecked #4 essential hypertension-patient's blood pressure medication will be held on account of hypotension\ #5 hypothyroidism-patient will remain on Synthroid Total clinical time spent by myself addressing patient's medical issues, reviewing all the data, and collaborating with patient's care team: 35 minutes Medications at Discharge Home Medications Levothyroxine 137 mcg PO DAILY hypothyroidism 03/17/14 cyanocobalamin (vitamin B-12) 500 mcg tablet 1,000 mcg PO DAILY@0800 vitamin 03/17/14 ferrous sulfate 325 mg (65 mg iron) tablet 325 mg PO DAILY anemia 06/25/20 lancets 30 gauge and blood glucose strips combo pack ##1 06/27/20 cholecalciferol (vitamin D3) 25 mcg (1,000 unit) capsule 25 mcg PO DAILY vitamin 07/18/20 pen needle, diabetic, safety 30 gauge x 13 #100 ea 04/12/21 glimepiride 2 mg tablet 2 mg PO BID #180 tabs 09/12/21 metformin 500 mg tablet,extended release 24 hr 1,000 mg PO BID diabetes #360 tabs 09/12/21 lisinopril 20 mg tablet 20 mg PO DAILY blood pressure 03/18/22 insulin aspart U-100 100 unit/mL (3 mL) subcutaneous pen (Novolog FlexPen U-100 Insulin aspart) 10 unit subcut DINNER diabetes 06/05/22 insulin aspart U-100 100 unit/mL (3 mL) subcutaneous pen (Novolog FlexPen U-100 Insulin aspart) 16 unit subcut BREAKFAST diabetes 06/05/22 cephalexin 500 mg capsule 500 mg PO Q12H #10 caps 06/07/22 Hospital Course Operations None Procedures None Summary of Care Provided Minutes Spent on Discharge: 31 Hospital Course: This 81-year-old white male was seen in the emergency room at [facility] with malaise, chills, rigors, and slightly elevated blood sugars. Patient was noted to have a high temperature in the emergency room, he was tachycardic at 136, blood cultures were drawn, patient had an elevated white count of 11.6, glucose was elevated at 166 and lactic acid was elevated at 2.9. Urinalysis showed 10-25 WBCs with +2 bacteria, chest x-ray showed no acute cardiopulmonary disease. Respiratory swabs were negative for COVID and influenza, patient received IV Rocephin and he was admitted to PCU and given IV fluids. Urine culture grew out mixed organisms, patient's overall medical status improved. On 06/07/2022, patient was seen and examined: On examination he appeared in good health and spirits. Vital signs as documented. Skin warm and dry and without overt rashes. Neck without JVD, neck was supple, trachea midline, thyroid was normal. Lungs clear bilaterally, normal air movement was noted. Heart exam notable for regular rhythm, normal sounds and absence of murmurs, rubs or gallops. Abdomen unremarkable and without evidence of organomegaly, masses, or abdominal aortic enlargement. Bowel sounds are p resent, abdomen is not distended. Extremities nonedematous, no cyanosis was noted, no clubbing was noted. Neuro: Cranial nerves II through XII are grossly intact, no focal motor deficits were noted, sensation to light touch and pinprick intact, motor exam 5/5 throughout. Psych: Patient is alert and oriented x3, he does not appear anxious or depressed, he does not appear agitated. Patient appears stable for discharge on 06/07/2022 Weight / BMI Weight Weight: 67.3 kg Body Mass Index (BMI) 21.2 ABG / Lab / Microbiology Data Result Diagrams: 06/07/22 14:48 06/06/22 04:21 Laboratory: Laboratory Results - last 24 hr 06/06/22 16:10: POC Glucose 138 H 06/06/22 21:49: POC Glucose 44 L* 06/06/22 22:07: POC Glucose 77 06/06/22 23:54: POC Glucose 130 H 06/07/22 08:19: POC Glucose 213 H 06/07/22 12:00: POC Glucose 63 L 06/07/22 14:48: WBC 8.9, RBC 3.39 L, Hgb 10.2 L, Hct 32.1 L, MCV 94.7 H, MCH 30.1, MCHC 31.8 L, RDW Std Deviation 43.3, RDW Coeff of Moise 12.5, Plt Count 119 L, MPV 11.2, Immature Gran % (Auto) 1.000 H, Neut % (Auto) 81.5 H, Lymph % (Auto) 8.2 L, [place] % (Auto) 8.3, Eos % (Auto) 0.9, Baso % (Auto) 0.1, Absolute Neuts (auto) 7.2, Absolute Lymphs (auto) 0.73 L, Nucleated RBC % 0 Microbiology: Microbiology 06/05/22 18:00 Blood Culture (Wb) - Right Wrist Blood Culture - Preliminary Alpha Hemolytic Streptococcus 06/05/22 20:28 Urine, Clean Catch Urine Culture - Final Mixed Gram Positive Organisms 06/05/22 18:45 Nasal Secretion SARS-CoV-2 & FLU Antigen (Rapid) - Final D/C Instructions Discharge Diet: 1800 Calorie Control Diet Weight Bearing Status: Full weight bearing (with walker if needed) Meaningful Use Info Meaningful Use Diagnoses (Choose all that apply): None applicable Discharge Plan Admission Admit Date/Time: 06/05/22 22:12 Primary Reason for Your Visit: sepsis, cystitis Attending Provider: Dennys Buenrostro Primary Care Provider: Kb Valdez Consulting Providers: Mk Davis Discharge Orders/Prescriptions Prescriptions: New cephalexin 500 mg capsule 500 mg PO Q12H Qty: 10 0RF Rx Instructions: start on 06/08/22 Continued cholecalciferol (vitamin D3) 25 mcg (1,000 unit) capsule 25 mcg PO DAILY glimepiride 2 mg tablet 2 mg PO BID Qty: 180 3RF metformin 500 mg tablet extended release 24 hr 1,000 mg PO BID Qty: 360 3RF lisinopril 20 mg tablet 20 mg PO DAILY cyanocobalamin (vitamin B-12) 500 MCG tablet 1,000 mcg PO DAILY@0800 Levothyroxine 137 mcg PO DAILY ferrous sulfate 325 MG tablet 325 mg PO DAILY (DME) lancets-blood glucose strips 1 EACH combo pack 1 each MC BID Qty: 1 1RF insulin aspart U-100 [Novolog FlexPen U-100 Insulin] 100 unit/mL (3 mL) Insulin Pen 10 unit SUBCUT DINNER insulin aspart U-100 [Novolog FlexPen U-100 Insulin] 100 unit/mL (3 mL) Insulin Pen 16 unit SUBCUT BREAKFAST (DME) pen needle, diabetic, safety 30 gauge x 1/3 needle 1 ea ALEC. UD Qty: 100 6RF Rx Instructions: 3x/day Referrals / Follow Up: Kb Valdez MD [Primary Care Provider] - Within 2 Weeks Disposition Disposition (needs filled in before D/C Order can be placed): Home, Self Care Charges/Coding Visit Charges Inpatient E&M: 02015 Disch Hosp >30min
[2022-06-07 16:32] VITALS: BP 94/56; PULSE 72; RESP 18; TEMP 36.7; O2SAT 94
[2022-06-07 16:40] LABS: Bedside Glucose 241 mg/dL (74-106)
[2022-06-07] MEDS: levoFLOXacin 500 MG Tablet PO (16:55)
== END 2022-06-07 17:38 | disposition home or self-care (01) | DRG 872 ==
LOC: ED 22:13 → PCU 22:25
PROVIDERS: Admitting Provider Hospitalist; Emergency Provider Emergency Medicine; PCP Family Medicine; Visit Provider Internal Medicine
DX: A41.9 Sepsis, unspecified organism (principal); E87.20 Acidosis, unspecified; N30.00 Acute cystitis without hematuria; E11.65 Type 2 diabetes mellitus with hyperglycemia; E11.22 Type 2 diabetes mellitus with diabetic chronic kidney disease; Z79.4 Long term (current) use of insulin; R19.7 Diarrhea, unspecified; E86.0 Dehydration; I12.9 Hypertensive chronic kidney disease with stage 1 through stage 4 chronic kidney disease, or unspecified chronic kidney disease; E03.9 Hypothyroidism, unspecified; N18.2 Chronic kidney disease, stage 2 (mild); E87.6 Hypokalemia; Z79.84 Long term (current) use of oral hypoglycemic drugs; Z79.899 Other long term (current) drug therapy; Z87.891 Personal history of nicotine dependence
CPT/HCPCS: 36415; 71045; 80048; 80053; 81001; 82962; 83605; 85025; 85610; 85730; 87040; 87077; 87086; 87088; 87149; 87186; 87428; 93005; 94762; 97162; 97166; 97530; 97535; 97802; 99285; J7030; J7050; A4216; J0696

== ENCOUNTER → 2022-07-17 | Outpatient (CLI) | payer MEDICARE, SELFPAY ==
[2022-07-17 13:40] LABS: Absolute Lymphocyte Count 1.82 X10^3/uL (0.83-4.51); Absolute Neutrophil Count 5.5 X10^3/uL (2.0-7.7); Basophil# 0.03 X10^3/uL; Basophil% 0.4 % (0-1); Eosinophil# 0.12 X10^3/uL; Eosinophils% 1.5 % (0-5); Hematocrit 39.3 % (40-54); Hemoglobin 12.6 g/dL (13.0-16.5); Lymphocyte # 1.82 X10^3/ul (0.83-4.51); Lymphocyte % 22.7 % (19-41); Mean Corp Hgb Conc 32.1 g/dL (32-36); Mean Corpuscular Volume 93.6 fL (80-94); Mean Platelet Vol. 11.3 fl (6.2-12.0); Monocyte# 0.49 X10^3/uL; Monocyte% 6.1 % (0-10); NRBC Flagged by Analyzer 0 % (0-5); Neutrophil # 5.45 X10^3/uL (2.7-7.7); Neutrophil % 68.1 % (47-70); Platelet Count 247 K/mm3 (150-450); RBC Distribution Width CV 12.4 % (11.6-14.6); RBC Distribution Width SD 42.6 fl (35.1-43.9)
[2022-07-17 14:19] LABS: ALB/GLOB Ratio 1.1 RATIO (0.9-2.4); AST(SGOT) 16 U/L (15-37); Alanine Aminotransfer ALT/SGPT 16 U/L (16-61); Albumin, Serum 3.4 g/dL (3.2-5.0); Alkaline Phosphatase 56 U/L (45-117); Anion Gap 5 (5-15); BUN 32 mg/dL (7-18); BUN/Creat Ratio 26.7 RATIO (10-20); Calcium,Total 8.8 mg/dL (8.5-10.1); Chloride 108 mmol/L (98-107); Cholesterol 117 mg/dL (200); EST Glomerular Filtration Rate 62 mL/min (>60); Est Glom Filt Rate - Afr Amer 75 mL/min (>60); Glucose 278 mg/dL (74-106); High Density Lipoprotein 64 mg/dL; Potassium 4.2 mmol/L (3.5-5.1); Protein, Total 6.4 g/dL (6.4-8.2); Sodium Level 139 mmol/L (136-145); T4 Free Direct 1.14 ng/dL (0.76-1.46); Thyroid Stim Hormone (TSH) 2.43 uIU/mL (0.358-3.74); Triglycerides 56 mg/dL; Very Low Density Lipoprotein 11 mg/dL (5-40)
== END | disposition home or self-care (01) ==
LOC: LAB 13:00
PROVIDERS: PCP Family Medicine; Referring Provider Internal Medicine Endocrinology, Diabetes & Metabolism; Visit Provider Internal Medicine Endocrinology, Diabetes & Metabolism
DX: N17.9 Acute kidney failure, unspecified (principal); E11.42 Type 2 diabetes mellitus with diabetic polyneuropathy; Z79.4 Long term (current) use of insulin; E03.9 Hypothyroidism, unspecified; I10 Essential (primary) hypertension
CPT/HCPCS: 36415; 80053; 80061; 84439; 84443; 85025

== ENCOUNTER 2024-07-26 16:07 | Inpatient (IN) | payer MEDICARE, SELFPAY ==
[2024-07-26 16:08] VITALS: BP 131/89; PULSE 74; RESP 16; TEMP 37.1; O2SAT 96
--- NOTE | 2024-07-26 16:13 | EX.ED.DYSGE1 ---
HPI History of Present Illness Chief Complaint: General Illness [facility] Medical History Dementia Benign essential hypertension Hypothyroidism (acquired) Diabetes Vision problem Thyroid disease Hearing problem Cataract gallbladder Hernia Hypertension Hypothyroidism Diabetes mellitus Home Medications ?Medication ?Instructions ?Recorded ?Last Taken ?Type ferrous sulfate 325 mg (65 mg 325 mg PO DAILY anemia 06/25/20 07/26/24 History iron) tablet lancets 30 gauge and blood glucose ##1 06/27/20 Unknown Rx strips combo pack cholecalciferol (vitamin D3) 25 25 mcg PO DAILY vitamin 07/18/20 07/26/24 History mcg (1,000 unit) capsule metformin 500 mg tablet,extended 1,000 mg (2 x 500 mg) PO BID 11/25/23 07/26/24 Rx release 24 hr diabetes #360 tabs pen needle, diabetic, safety 30 #100 ea 01/05/24 Unknown Rx gauge x 1/3 glimepiride 2 mg tablet 2 mg PO BID #180 tabs 04/21/24 07/26/24 Rx cyanocobalamin (vitamin B-12) 1,000 mcg PO DAILY 07/26/24 07/26/24 History 1,000 mcg tablet insulin NPH-regular 70-30 U-100 See Rx Instructions subcut BID 07/26/24 07/26/24 History insulin 100 unit/mL subcutaneous pen (Novolin 70-30 FlexPen U-100 Insulin) levothyroxine 125 mcg tablet 125 mcg PO DAILY 07/26/24 07/26/24 History lisinopril 30 mg tablet 30 mg PO DAILY 07/26/24 07/26/24 History Allergy/AdvReac Type Severity Reaction Status Date / Time No Known Allergies Allergy Verified 07/26/24 16:08 Family History Other Cancer Surgical History History of cholecystectomy Social History Smoking Status: Former smoker alcohol intake: current alcohol intake frequency: 0-2 drinks per day substance use type: does not use what type of physical activity do you participate in: walking frequency: daily EXAM Physical Exam Const Vital Signs: 07/26/24 16:08 Temperature 98.8 F Temperature Source Oral Pulse Rate 74 Respiratory Rate 16 Blood Pressure 131/89 H Blood Pressure Mean 103 Pulse Ox 96 Oxygen Delivery Method Room Air [facility] Narrative Medical decision making narrative: HISTORY OF PRESENT ILLNESS: Chief complaint: Confusion, hypoglycemia 83-year-old male history of type 2 diabetes, hypertension hypothyroidism presents with undulating glucose levels. Notes glucose up-and-down today. Notes it has been 160 but as low as 50. Per family patient has baseline mental status. The patient is asymptomatic. REVIEW OF SYSTEMS: Pertinent positives: Confusion, low blood sugar Pertinent negatives: Headache, chest pain, urinary complaints PHYSICAL EXAM: Nursing triage notes reviewed, Vital signs reviewed Constitutional: please see [facility] HENT: MMM Eyes: Pupils equal round and reactive to light, Extraocular muscles intact Neck: No stridor, no JVD, full neck ROM Lungs: Clear to auscultation, No wheezing or rales. No increased work of breathing, no conversational dyspnea, no accessory muscle use, no nasal flaring. No respiratory distress noted Heart: Regular rate and rhythm, No murmurs, No rubs and No gallops, 2+ distal pulses (radial, femoral, posterior tibial) in all extremities Abdomen: Soft, there is no tenderness, rigidity, rebound or guarding, no obvious peritoneal signs, no palpable pulsatile abdominal masses, no auscultated abdominal bruit : No CVAT Extremities: No edema Neuro: No new focal neurological deficits, at baseline alert and orient x 2 (alert and oriented to person and place but not time) cranial nerves II through XII intact, 5/5 strength in all present extremities. Intact sensation to light touch in all present extremities, 2+ reflexes bilateral patella tendons. Skin: No rash or lesions noted MEDICAL DECISION MAKING: Chief Complaint: please see HPI External records reviewed: Reviewed prior medications: Patient is currently on insulin, metformin and glimepiride Factors affecting care: type 2 diabetes Social determinants of health: none History obtained from others: none Consults: Internal Medicine (Dr. House) [facility] Narrative: The patient was initially hemodynamically stable, afebrile and nontoxic-appearing. Exam with no focal deficits. I considered the following differential diagnosis: ICH, metabolic or infectious encephalopathy, hypoglycemia. I obtained a broad lab and imaging workup to further elucidate etiology of the patient's complaints ALL IMAGES (IF OBTAINED) HAVE BEEN PERSONALLY REVIEWED AND INTERPRETED BY MYSELF. I have personally reviewed the patient's chest x-ray. Chest x-ray is unremarkable for pulmonary edema, pneumothorax, pneumonia or focal cardiopulmonary abnormality. CT scan of the head negative for ICH High-sensitivity troponin is negative, no evidence of myocardial ischemia EKG with normal sinus rhythm rate of 103, normal axis, normal intervals, no STEMI. CBC with no leukocytosis, noted mild anemia, no thrombocytopeni.a BMP with renal insufficiency, no sign of hepatic encephalopathy. COVID RSV flu negative. Urinalysis consistent UTI. Given multiple organ system dysfunction including altered mental status, acute kidney injury, UTI and concern with hypoglycemia on sulfonylurea patient will need inpatient admission. Discussed with Dr. House. The patient and/or family, caregivers express understanding. The patient and/or family, caregivers agrees with the plan. Shared decision making: I will have a discussion with the patient and or visitors regarding risk/benefits of further testing or admission. They will be made aware of of the risk/benefits inherent in this decision they will be given the opportunity to voice understanding. Total critical care time today provided was at least 0 minutes. This excludes separately billable procedures. Critical care time (if documented) is secondary to the patient having high probability of clinically significant/life threatening deterioration in the patient's condition which required my urgent intervention. Impression: 1. UTI 2. Altered mental status 3. Hyperglycemia 4. History of sulfonylurea use 5. Acute kidney injury Dispo: Admit to general medical floor This note was generated with [employer] dictation software. It may contain incorrect words, spelling, and punctuation that were not noted in review of the chart prior to signing. Discharge Plan Triage Chief Complaint: General Illness ED Provider: Warren Rosenberg Dx/Rx/DC Orders Prescriptions: No Action cholecalciferol (vitamin D3) 25 mcg (1,000 unit) capsule 25 mcg PO DAILY metformin 500 mg tablet extended release 24 hr 1,000 mg PO BID Qty: 360 3RF ferrous sulfate 325 MG tablet 325 mg PO DAILY (DME) lancets-blood glucose strips 1 EACH combo pack 1 each MC BID Qty: 1 1RF cyanocobalamin (vitamin B-12) 1,000 mcg tablet 1,000 mcg PO DAILY levothyroxine 125 mcg tablet 125 mcg PO DAILY lisinopril 30 mg tablet 30 mg PO DAILY Novolin 70-30 FlexPen U-100 100 unit/mL (70-30) insulin pen See Rx Instructions subcut BID Rx Instructions: 28 u breakfast, 12 u supper subcutaneously twice a day; (DME) pen needle, diabetic, safety 30 gauge x 1/3 needle 1 ea ALEC. UD Qty: 100 6RF Rx Instructions: 3x/day glimepiride 2 mg tablet 2 mg PO BID Qty: 180 1RF Primary Care Provider: Kb Valdez Referrals: Kb Valdez MD [Primary Care Provider] - Print Language: Emirati
--- NOTE | 2024-07-26 16:35 | CT_ITS ---
PROCEDURE: BRAIN/HEAD WITHOUT CONTRAST 07/26/2024 REASON FOR EXAM: CONFUSION TECHNIQUE: Head CT without intravenous contrast. Coronal and Sagittal reconstruction series were provided. One or more dose reduction techniques were used (e.g., Automated exposure control, adjustment of the mA and/or kV according to patient size, use of iterative reconstruction technique. FINDINGS: Brain: Low density in the periventricular white matter suggests mild chronic small vessel ischemic changes. CSF Spaces: Moderate generalized cerebral atrophy Sinuses/Mastoids: Clear at visualized levels Bones: Unremarkable. CT/Brain/Head without Contrast IMPRESSION: CHRONIC CHANGES. NO ACUTE FINDINGS. Reading Location: [id number]
--- NOTE | 2024-07-26 16:35 | EKG12_ITS ---
Test Reason : GENERAL Blood Pressure : */* mmHG Vent. 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
[2024-07-26 16:36] LABS: Bedside Glucose 179 mg/dL (74-106)
[2024-07-26 16:52] LABS: Absolute Lymphocyte Count 1.01 X10^3/uL (0.83-4.51); Basophil# 0.03 X10^3/uL; Basophil% 0.3 % (0-1); Eosinophil# 0.01 X10^3/uL; Eosinophils% 0.1 % (0-5); Hematocrit 38.1 % (40-54); Hemoglobin 12.6 g/dL (13.0-16.5); Lymphocyte # 1.01 X10^3/ul (0.83-4.51); Lymphocyte % 9.8 % (19-41); Mean Corp Hgb Conc 33.1 g/dL (32-36); Mean Corpuscular Hgb 29.2 pg (27.0-32.0); Mean Corpuscular Volume 88.2 fL (80-94); Mean Platelet Vol. 11.1 fl (6.2-12.0); Monocyte% 11.6 % (0-10); NRBC Flagged by Analyzer 0 % (0-5); Neutrophil % 77.5 % (47-70); Platelet Count 251 K/mm3 (150-450); RBC Distribution Width CV 13.2 % (11.6-14.6); RBC Distribution Width SD 42.6 fl (35.1-43.9); Red Blood Count 4.32 M/mm3 (4.6-6.2); White Blood Count 10.3 K/mm3 (4.4-11.0)
[2024-07-26 17:15] LABS: ALB/GLOB Ratio 1.1 RATIO (0.9-2.4); AST(SGOT) 20 U/L (<=37); Alanine Aminotransfer ALT/SGPT 9 U/L (<=46); Albumin, Serum 4.1 g/dL (3.4-4.8); Alkaline Phosphatase 72 U/L (40-129); Anion Gap 14 (5-15); BUN 35 mg/dL (4-19); BUN/Creat Ratio 21.5 RATIO (10-20); Calcium,Total 9.4 mg/dL (7.6-11.0); Carbon Dioxide 22.8 mmol/L (21.0-32.0); Chloride 104 mmol/L (98-108); Creatinine, Serum 1.64 mg/dL (0.70-1.20); EST Glomerular Filtration Rate 42 (>60); Globulin 3.5 g/dL (2.2-4.2); Glucose 179 mg/dL (70-99); Potassium 4.4 mmol/L (3.3-5.1); Protein, Total 7.6 g/dL (5.9-8.4); Sodium Level 140 mmol/L (133-145); Total Bilirubin 0.39 mg/dL (0.00-1.30); Troponin T High Sensitivity 20 ng/L (<=22)
--- NOTE | 2024-07-26 17:17 | RAD_ITS ---
PROCEDURE: CHEST 1 VIEW (PORTABLE) 07/26/2024 REASON FOR EXAM: CONFUSION TECHNIQUE: Frontal view of the chest. COMPARISON: No relevant prior FINDINGS: Lungs: Lungs clear of pneumonia and congestion. Pleura: No pleural effusions, thickening, or pneumothorax. Heart: Normal in size and configuration. Mediastinum/Simi: Unremarkable. Great vessels: Marked atherosclerotic tortuosity of the aorta. Bones/soft tissues: Unremarkable. RAD/Chest 1 View (Portable) IMPRESSION: No active cardiopulmonary disease. Reading Location: [facility]
[2024-07-26 18:07] VITALS: BP 128/77; PULSE 81; RESP 16; O2SAT 99
[2024-07-26 18:42] LABS: Mucous, Urine 0 SEEN /hpf (<or=2+)
[2024-07-26 18:44] LABS: Color, Urine Yellow (Yellow); Glucose, Dipstick 100 mg/dl (Normal); Ketone-Dipstick 15 mg/dl (Negative); Leukocyte Esterase-Dipstick 500 /ul (Negative); Nitrite-Dipstick Positive (Negative); Occult Blood-Urine 250 /ul (Negative); Protein-Dipstick 100 mg/dl (Negative); Urine Bilirubin Dipstick Negative (Negative); Urine Clarity Turbid (Clear); Urine Urobilinogen Normal (Normal)
[2024-07-26] MEDS: Ceftriaxone 1 GM/50 ML BAG IV (19:39)
--- NOTE | 2024-07-26 19:45 | PCM.HP.STD ---
[facility] - General General Date of Admission: 07/26/24 Date of Service: 07/26/24 Chief Complaint: Confusion and Fluctuating Blood Glucose. [facility] Narrative JEAN-CLAUDE DOUGLAS, is a 83 M with a past medical history of essential hypertension; on lisinopril, hypothyroidism; levothyroxine, DM-2; of unknown control on metformin twice daily, glimepiride twice daily plus 70-30 insulin, iron deficiency anemia; on ferrous sulfate, history of dementia, history of CHANTALE, history of cholecystectomy, history of hernia; s/p repair, history of cataracts and OA who presents to [facility] ER complaining of confusion and fluctuating blood glucose. Mr. Linares reports his symptoms began approximately 1 day prior to admission with the patient noting undulating glucose levels from his lowest 50 mg/dL to 160 mg/dL patient otherwise asymptomatic. The family reported to the ER physician the patient is at his baseline mental status at this time. There was no reported fever, chills, nausea, vomiting, diarrhea, constipation, dysuria, hematuria, chest pain, shortness of breath, headache or rash. In the ER he was noted to have a UA positive for Acute Cystitis; with hematuria complicated by additional laboratory evidence of suspected CHANTALE; with elevated serum creatinine of 1.64 mg/dL and BUN of 35 mg/dL (up from his baseline of 1.2 mg/dL and BUN of 32 mg/dL last admission) compounded by intermittent Hypoglycemia likely due to Adverse Drug reaction to glimepiride culminating to cause clinical evidence of Acute Metabolic Encephalopathy and he was then admitted to the general medical floor for ongoing care for status is expected to extend beyond 2 midnights. [facility] Medical History Dementia Benign essential hypertension Hypothyroidism (acquired) Diabetes Vision problem Thyroid disease Hearing problem Cataract gallbladder Hernia Hypertension Hypothyroidism Diabetes mellitus Home Medications ?Medication ?Instructions ?Recorded ?Last Taken ?Type ferrous sulfate 325 mg (65 mg 325 mg PO DAILY anemia 06/25/20 07/26/24 History iron) tablet lancets 30 gauge and blood glucose ##1 06/27/20 Unknown Rx strips combo pack cholecalciferol (vitamin D3) 25 25 mcg PO DAILY vitamin 07/18/20 07/26/24 History mcg (1,000 unit) capsule metformin 500 mg tablet,extended 1,000 mg (2 x 500 mg) PO BID 11/25/23 07/26/24 Rx release 24 hr diabetes #360 tabs pen needle, diabetic, safety 30 #100 ea 01/05/24 Unknown Rx gauge x 1/3 glimepiride 2 mg tablet 2 mg PO BID #180 tabs 04/21/24 07/26/24 Rx cyanocobalamin (vitamin B-12) 1,000 mcg PO DAILY 07/26/24 07/26/24 History 1,000 mcg tablet insulin NPH-regular 70-30 U-100 See Rx Instructions subcut BID 07/26/24 07/26/24 History insulin 100 unit/mL subcutaneous pen (Novolin 70-30 FlexPen U-100 Insulin) levothyroxine 125 mcg tablet 125 mcg PO DAILY 07/26/24 07/26/24 History lisinopril 30 mg tablet 30 mg PO DAILY 07/26/24 07/26/24 History Allergy/AdvReac Type Severity Reaction Status Date / Time No Known Allergies Allergy Verified 07/26/24 16:08 Family History Other Cancer Surgical History History of cholecystectomy Social History Smoking Status: Former smoker alcohol intake: current alcohol intake frequency: 0-2 drinks per day substance use type: does not use what type of physical activity do you participate in: walking frequency: daily ROS ROS Narrative Review of Systems: Constitutional: Patient admits to intermittent confusion coinciding with hypoglycemia but he denies fever or chills. Eyes: Patient denies change in vision or discharge from eyes. ENT: Patient denies runny nose, sore throat or ear pain. Resp: Patient denies shortness of breath or cough. CV: Patient denies chest pain, palpitations, heart racing or lower extremity edema. GI: Patient denies abdominal pain, nausea, vomiting, diarrhea or constipation. : Patient denies dysuria, hematuria or urinary frequency. MSK: Patient denies arthralgias or myalgias. Skin: Patient denies rash, abscess, wounds or jaundice. Psych: Patient denies symptoms well-controlled depression or anxiety. Neuro: Patient admits to intermittent confusion coinciding with hypoglycemia but he denies headache, paresthesias or other focal motor neurologic deficits. Allergy: Patient denies lip swelling, tongue swelling or urticaria. Hematology: Patient denies easy bleeding or easy bruisability. Endocrinology: Patient admits to fluctuating blood glucose as per HPI but he denies polyuria, polydipsia or polyphagia. 14 point ROS otherwise negative except for positives noted above in HPI. Vital Signs Vital Signs Vital Signs: 07/26/24 16:07 07/26/24 16:08 07/26/24 18:07 Temperature 98.8 F Temperature Source Oral Pulse Rate 74 81 Respiratory Rate 16 16 Respiratory Effort Normal Non-Labored Blood Pressure 131/89 H 128/77 H Blood Pressure Mean 103 94 Pulse Ox 96 99 Oxygen Delivery Method Room Air Physical Exam Const alert, no apparent distress, average body habitus and healthy appearing General Appearance: cooperative Orientation / Consciousness: confused HEENT normocephalic, head/scalp atraumatic, hearing grossly normal bilaterally and moist oral mucous membranes Eyes PERRL, EOMs intact bilaterally and conjunctivae normal Neck no lymphadenopathy, supple and no JVD Resp normal respiratory effort, no retractions, no use of accessory muscles and clear to auscultation bilaterally Cardio regular rate and regular rhythm GI normal to inspection, nondistended, normoactive bowel sounds, soft to palpation, non-tender and non-distended Extremity normal to inspection and full ROM Skin Skin Narrative: Patient has evidence of rash, abscess, wounds or jaundice. Neuro CN's II-XII intact bilaterally, moves all extremities and no focal motor deficits Sensorium / Orientation: awake, alert, oriented to person and oriented to place Speech: speech normal Psych affect normal Results Medical Records Data Attestation: I reviewed the patient's medical records Lab / Micro Data Attestation: I reviewed the patient's lab results. 07/27/24 04:20 07/26/24 16:24 Labs: Laboratory Results - last 24 hr 07/26/24 16:18: POC Glucose 179 H 07/26/24 16:24: WBC 10.3, RBC 4.32 L, Hgb 12.6 L, Hct 38.1 L, MCV 88.2, MCH 29.2, MCHC 33.1, RDW Std Deviation 42.6, RDW Coeff of Moise 13.2, Plt Count 251, MPV 11.1, Immature Gran % (Auto) 0.700, Neut % (Auto) 77.5 H, Lymph % (Auto) 9.8 L, Crowley % (Auto) 11.6 H, Eos % (Auto) 0.1, Baso % (Auto) 0.3, Absolute Neuts (auto) 8.0 H, Absolute Lymphs (auto) 1.01, Nucleated RBC % 0, Sodium 140, Potassium 4.4, Chloride 104, Carbon Dioxide 22.8, Anion Gap 14, BUN 35 H, Creatinine 1.64 H, Est GFR (MDRD) Non-Af 42 L, BUN/Creatinine Ratio 21.5 H, Glucose 179 H, Calcium 9.4, Total Bilirubin 0.39, AST 20, ALT 9, Alkaline Phosphatase 72, Troponin T High Sens 20, Total Protein 7.6, Albumin 4.1, Globulin 3.5, Albumin/Globulin Ratio 1.1 07/26/24 18:35: Urine Color Yellow, Urine Clarity Turbid, Urine pH 7.0, Ur Specific [place] 1.010, Urine Protein 100 H, Urine Glucose (UA) 100 H, Urine Ketones 15 H, Urine Occult Blood 250 H, Urine Nitrite Positive H, Urine Bilirubin Negative, Urine Urobilinogen Normal, Ur Leukocyte Esterase 500 H Micro: Microbiology 07/26/24 17:08 Mucosa - Nose SARS-CoV-2, Influenza & RSV (PCR) - Final Imaging Radiology Impression Brain CT 07/26/24 16:35 IMPRESSION: CHRONIC CHANGES. NO ACUTE FINDINGS. Reading Location: [id number] Chest X-Ray 07/26/24 17:17 IMPRESSION: No active cardiopulmonary disease. Reading Location: [facility] Assessment & Plan Assessment/Plan (1) Acute cystitis with hematuria: (2) CHANTALE (acute kidney injury): (3) Hypoglycemia associated with type 2 diabetes mellitus: (4) Adverse drug reaction: QUALIFIERS: Encounter type: initial encounter Qualified Code(s): T50.905A - Adverse effect of unspecified drugs, medicaments and biological substances, initial encounter (5) Acute metabolic encephalopathy: PLAN: Plan 1. UA positive for Acute Cystitis; with hematuria - Admit to general medical floor. Continue empiric IV ceftriaxone and await culture and sensitivity data. Give acetaminophen as needed pain or fever. 2. Suspected CHANTALE; with elevated serum creatinine of 1.64 mg/dL and BUN of 35 mg/dL (up from his baseline of 1.2 mg/dL and BUN of 32 mg/dL last admission) complicating #1 - Volume resuscitate and recheck renal indices daily to follow trend hopeful improvement. We will avoid potentially nephrotoxic agents including holding lisinopril at this time. 3. Intermittent Hypoglycemia likely due to Adverse Drug reaction to glimepiride compounding #1 & #2 in the setting of known DM-2; on metformin twice daily, glimepiride twice daily and 70-30 insulin - Hold scheduled insulin as well as metformin and glimepiride. Give D5 NS at 70 cc per hour to prevent further episodes of hypoglycemia. Check hemoglobin A1c to objectively assess quality of diabetic control. 4. Acute Metabolic Encephalopathy due to #1 - #3 in the setting of known Chronic Dementia - Check TSH, B12, folate, JACKLYN and UDS to evaluate for reversible causes of confusion. Otherwise, continue care plan as outlined above and monitor for improvement. 5. Essential hypertension; on lisinopril - Hold lisinopril in light of #2. Give hydralazine IV as needed for systolic blood pressure greater than 160 mmHg. 6. Hypothyroidism; levothyroxine - Maintain levothyroxine as before and check TSH. 7. History of Iron deficiency anemia; on ferrous sulfate - Resume oral iron supplementation check iron studies with hemoglobin of 12.6 g/dL and MCV of 88.2 fL present on admission. 8. History of CHANTALE - Noted. 9. History of cholecystectomy - Noted. 10. History of hernia; s/p repair - Noted. 11. History of cataracts - Noted. 12. OA - Give acetaminophen as needed as per scale outlined #1. 13. DVT prophylaxis - Heparin 5,000 U SQ twice daily plus SCDs. Total time: Approximately (but not less than) 75 minutes. Charges/Coding Visit Charges Inpatient E&M: 85456 Init Hosp L3
[2024-07-26 19:47] VITALS: BP 129/76; PULSE 93; RESP 18; TEMP 37.2; O2SAT 97
[2024-07-26 19:48] VITALS: BP 129/76; PULSE 98; RESP 18; TEMP 37.2; O2SAT 98
[2024-07-26 20:09] LABS: Red Blood Cells-Urine 5-10 SEEN /hpf (0-5)
[2024-07-26 20:10] LABS: Amorphous Sediment 3+; Bacteria 4+ /hpf (None Seen)
[2024-07-26 20:11] LABS: Squamous Epithelial Cells - UA 0-5 SEEN /hpf (0-5); Triple Phosphate Crystals Ur RARE /hpf (<or=1+); White Blood Cells 10-25 SEEN /hpf (0-5)
[2024-07-26 20:28] VITALS: BP 132/90
[2024-07-26 21:04] LABS: Ferritin 193 ng/mL (37-417); Iron 13 ug/dL (65-175); Iron Binding Capacity,Unsat 221 ug/dL (228-428); Magnesium 1.5 mg/dL (1.5-2.2)
[2024-07-26 21:05] VITALS: BMI 21.3
[2024-07-26 21:06] LABS: Iron Binding Capacity,Total 234 ug/dL (250-450); PERCENT IRON SATURATION 5.6 % (9-55)
[2024-07-26 21:10] LABS: Hemoglobin A1c 9.5 % (<=5.6)
[2024-07-26 21:11] VITALS: BP 126/69; PULSE 80; RESP 18; TEMP 36.8; O2SAT 97
[2024-07-26] MEDS: Insulin Lispro 100 UNIT/ML INSULN.PEN SC (22:02)
[2024-07-26] MEDS: Lactobacillis Acidophilus 1 CAP PO (22:02)
[2024-07-26] MEDS: Heparin Injection (Vial) 5,000 UNIT/ML VIAL 5000 UNIT SC (22:03)
[2024-07-26 22:05] LABS: Alcohol, Blood (Medical)-Serum < 10.1 mg/dL (<=10.0)
[2024-07-26 22:50] LABS: Vitamin B12 769 pg/mL (180-914)
[2024-07-27] VITALS (8 sets, daily range): BP systolic 91–120; BP diastolic 62–72; PULSE 57–92; RESP 16–18; TEMP 36.4–37.2; O2SAT 93–98; BMI 21.4
[2024-07-27] MEDS: Insulin Lispro 100 UNIT/ML INSULN.PEN SC ×5 (01:35→15:59)
[2024-07-27 01:54] LABS: Bedside Glucose 396 mg/dL (74-106)
[2024-07-27 04:49] LABS: Absolute Lymphocyte Count 1.66 X10^3/uL (0.83-4.51); Absolute Neutrophil Count 5.9 X10^3/uL (2.0-7.7); Basophil# 0.03 X10^3/uL; Basophil% 0.3 % (0-1); Eosinophil# 0.06 X10^3/uL; Eosinophils% 0.7 % (0-5); Hematocrit 35.6 % (40-54); Lymphocyte # 1.66 X10^3/ul (0.83-4.51); Lymphocyte % 19.1 % (19-41); Mean Corp Hgb Conc 33.7 g/dL (32-36); Mean Corpuscular Hgb 29.6 pg (27.0-32.0); Mean Corpuscular Volume 87.9 fL (80-94); Mean Platelet Vol. 10.8 fl (6.2-12.0); Monocyte# 1.01 X10^3/uL; Monocyte% 11.6 % (0-10); NRBC Flagged by Analyzer 0 % (0-5); Neutrophil % 67.7 % (47-70); Platelet Count 227 K/mm3 (150-450); RBC Distribution Width CV 13.2 % (11.6-14.6); RBC Distribution Width SD 43.1 fl (35.1-43.9); Red Blood Count 4.05 M/mm3 (4.6-6.2); White Blood Count 8.7 K/mm3 (4.4-11.0)
[2024-07-27 05:17] LABS: ALB/GLOB Ratio 1.1 RATIO (0.9-2.4); AST(SGOT) 14 U/L (<=37); Alanine Aminotransfer ALT/SGPT 10 U/L (<=46); Albumin, Serum 3.9 g/dL (3.4-4.8); Alkaline Phosphatase 71 U/L (40-129); Anion Gap 14 (5-15); BUN 31 mg/dL (4-19); BUN/Creat Ratio 20.3 RATIO (10-20); Calcium,Total 9.3 mg/dL (7.6-11.0); Carbon Dioxide 22.6 mmol/L (21.0-32.0); Chloride 104 mmol/L (98-108); Creatinine, Serum 1.55 mg/dL (0.70-1.20); EST Glomerular Filtration Rate 45 (>60); Estimated Creatinine Clearance 35.69 ml/min (50-250); Globulin 3.5 g/dL (2.2-4.2); Glucose 257 mg/dL (70-99); Phosphorus 2.6 mg/dL (2.7-4.5); Potassium 3.7 mmol/L (3.3-5.1); Protein, Total 7.4 g/dL (5.9-8.4); Sodium Level 140 mmol/L (133-145); Total Bilirubin 0.43 mg/dL (0.00-1.30)
[2024-07-27] MEDS: Levothyroxine 125 MCG Tablet PO (06:18)
[2024-07-27 06:44] LABS: Bedside Glucose 259 mg/dL (74-106)
[2024-07-27] MEDS: Cyanocobalamin 500 MCG Tablet 1000 MCG PO (08:57)
[2024-07-27] MEDS: Ascorbic Acid 500 MG Tablet 1000 MG PO ×2 (08:57→16:00)
[2024-07-27] MEDS: Lactobacillis Acidophilus 1 CAP PO ×4 (08:57→21:22)
[2024-07-27] MEDS: Zinc Sulfate 50 mg zinc (220 mg) ORAL capsule PO (08:58)
[2024-07-27] MEDS: Cholecalciferol (VIT D3) 25 MCG TABLET (1,000 UNITS) PO (08:58)
[2024-07-27] MEDS: Heparin Injection (Vial) 5,000 UNIT/ML VIAL 5000 UNIT SC ×2 (08:58→21:21)
--- NOTE | 2024-07-27 11:35 | CASEMGMT ---
RN CM life insurance actuary?CM?to room to meet with patient for initial transition planning/care coordination?assessment.?RN?CM?introduced self and role at [facility].? Pt voices understanding and consents to?assessment?at this time.? Pt resting in bed in no distress at this time.? Pt has history of dementia, but is currently A/O at this time and answers all questions appropriately.?? TE-MOAK. He has a hearing aide @ bedside, but states the batteries just . Care providers, pharmacy, and demographics verified/updated at this time. Strata: 2 PCP: Dr. Valdez Specialist: Dr Kemp-endocrinology Pharmacy: [facility] retail LNOK: , adult son and daughter (Sylvia) Living arrangements: lives in mobile home with his w/4 steps into home. Pt states is independent @ home, does the yard work and even able to use self-propelled mower, stating, It's good exercise. assists w/medication/insulin mgnt. Transportation: Pt and both drive. will take him home @ dc. DME: Pt has a cane. He also has a shower chair and walker available, but does not use them. He has a functioning CGM w/supplies, a back-up glucometer w/supplies and reports having sufficient supply of insulin and needles. HHC/SNF: Pt has had [facility] HHC in the past, no hx of SNF. Pt wishes to discharge home w/. He declines wanting HHC or OP therapy, made aware if he changes his mind to discuss this w/his PCP. He voices understanding. Pt denies having other discharge needs or concerns. Made aware to ask for CM if any needs or questions arise. Plan: Home w/spousal support and discharge plans in place. Radha PINTO RN CM
[2024-07-27 11:43] LABS: Bedside Glucose 455 mg/dL (74-106)
[2024-07-27 12:17] LABS: Glucose 468 mg/dL (70-99)
[2024-07-27] MEDS: Ferrous Sulfate 325 MG Tablet PO (13:11)
[2024-07-27] MEDS: Insulin NPH Human 100 UNITS/ML PEN 10 UNITS SC (14:02)
--- NOTE | 2024-07-27 14:09 | CHAPLAIN ---
Type of Pastoral Visit _x__ Initial Visit ___ Follow-up Visit ___ On-call Visit ___ General Patient Visit ___ Spiritual Assessment ___ Family Conference ___ Bereavement ___ Rapid Response ___ Code Blue ___ Other (describe below) Pastoral Care Referral From _x__ Patient ___ Family ___ Nurse ___ Physician ___ Instructor Warper ___ Saw Man ___ Other (describe below) Sacrament/Intervention _x__ Active listening ___ Anointing ___ Scientologist ___ Bereavement ___ Communion ___ Ariana exploration ___ ___ Life review _x__ Prayer ___ Reconciliation ___ Sacrament of Sick _x__ Supportive presence ___ Wedding ___ Other (describe below) Pastoral Comments patient is sitting up and finishing his lunch; is with him in the room; pt is hard of hearing but answers questions appropriately; pt says that he is doing better and is fine now; pt says that he hopes to get home after he proves that he doesn't need a walker; gives a few more details while pt focuses on eating; pt again states that he is fine but that a prayer would be okay to give
[2024-07-27 15:02] LABS: Bedside Glucose 404 mg/dL (74-106)
[2024-07-27 15:02] LABS: Bedside Glucose 432 mg/dL (74-106)
--- NOTE | 2024-07-27 15:40 | PCM.PN.HOSP ---
Reason for Visit Reason for Visit: Diagnoses Type 2 diabetes mellitus with hypoglycemia without coma (07/26/24) Metabolic encephalopathy (07/26/24) Acute kidney failure, unspecified (07/26/24) Acute cystitis with hematuria (07/26/24) Adverse effect of unspecified drugs, medicaments and biological substances, initial encounter (07/26/24) Subjective Subjective Patient was seen and examined today, I talked with his who was in the room at the time my examination. Patient's blood sugars have been running high today, I made the decision to place the patient on Humulin and twice a day in addition to his sliding scale insulin. Patient does see an craft demonstrator as an outpatient and is on 70/30 insulin-I will most likely place the patient back on this when he is discharged. Patient's creatinine this morning was 1.55 Objective Data Objective Data Vital Signs: Vital Signs Temp Pulse Resp BP Pulse Ox O2 Del Method 98.7 F 80 18 91/66 97 Room Air 07/27/24 14:53 07/27/24 14:53 07/27/24 14:53 07/27/24 14:53 07/27/24 14:53 07/27/24 14:53 Oxygen Delivery Method Room Air Weight: 67.8 kg Body Mass Index (BMI) 21.4 Intake & Output: Intake and Output for Last 24 Hours 07/25/24 07/26/24 07/27/24 23:59 23:59 23:59 Intake Total 50 / 50 Balance 50 / 50 Lab / Micro Data 07/27/24 04:20 07/27/24 11:45 Labs: Laboratory Results - last 24 hr 07/26/24 16:18: POC Glucose 179 H 07/26/24 16:24: WBC 10.3, RBC 4.32 L, Hgb 12.6 L, Hct 38.1 L, MCV 88.2, MCH 29.2, MCHC 33.1, RDW Std Deviation 42.6, RDW Coeff of Moise 13.2, Plt Count 251, MPV 11.1, Immature Gran % (Auto) 0.700, Neut % (Auto) 77.5 H, Lymph % (Auto) 9.8 L, Roosevelt % (Auto) 11.6 H, Eos % (Auto) 0.1, Baso % (Auto) 0.3, Absolute Neuts (auto) 8.0 H, Absolute Lymphs (auto) 1.01, Nucleated RBC % 0, Sodium 140, Potassium 4.4, Chloride 104, Carbon Dioxide 22.8, Anion Gap 14, BUN 35 H, Creatinine 1.64 H, Est GFR (MDRD) Non-Af 42 L, BUN/Creatinine Ratio 21.5 H, Glucose 179 H, Calcium 9.4, Total Bilirubin 0.39, AST 20, ALT 9, Alkaline Phosphatase 72, Troponin T High Sens 20, Total Protein 7.6, Albumin 4.1, Globulin 3.5, Albumin/Globulin Ratio 1.1 07/26/24 16:48: Hemoglobin A1c 9.5 H, Magnesium 1.5, Iron 13 L, TIBC 234 L, Iron Saturation 5.6 L, Unsaturated IBC 221 L, Ferritin 193, TSH 2.300 07/26/24 18:35: Urine Color Yellow, Urine Clarity Turbid, Urine pH 7.0, Ur Specific [place] 1.010, Urine Protein 100 H, Urine Glucose (UA) 100 H, Urine Ketones 15 H, Urine Occult Blood 250 H, Urine Nitrite Positive H, Urine Bilirubin Negative, Urine Urobilinogen Normal, Ur Leukocyte Esterase 500 H, Urine RBC 5-10 SEEN, Urine WBC 10-25 SEEN, Ur Squamous Epith Cells 0-5 SEEN, Triple Phos Crystals RARE, Amorphous Sediment 3+, Urine Bacteria 4+, Urine Mucus 0 SEEN 07/26/24 21:30: Vitamin B12 769, Serum Folate 11.00, Ethyl Alcohol < 10.1 07/26/24 21:46: POC Glucose 432 H 07/26/24 21:48: POC Glucose 404 H 07/27/24 01:33: POC Glucose 396 H 07/27/24 04:20: WBC 8.7, RBC 4.05 L, Hgb 12.0 L, Hct 35.6 L, MCV 87.9, MCH 29.6, MCHC 33.7, RDW Std Deviation 43.1, RDW Coeff of Moise 13.2, Plt Count 227, MPV 10.8, Immature Gran % (Auto) 0.600, Neut % (Auto) 67.7, Lymph % (Auto) 19.1, [place] % (Auto) 11.6 H, Eos % (Auto) 0.7, Baso % (Auto) 0.3, Absolute Neuts (auto) 5.9, Absolute Lymphs (auto) 1.66, Nucleated RBC % 0, Sodium 140, Potassium 3.7, Chloride 104, Carbon Dioxide 22.6, Anion Gap 14, BUN 31 H, Creatinine 1.55 H, Estim Creat Clear Calc 35.69 L, Est GFR (MDRD) Non-Af 45 L, BUN/Creatinine Ratio 20.3 H, Glucose 257 H, Calcium 9.3, Phosphorus 2.6 L, Total Bilirubin 0.43, AST 14, ALT 10, Alkaline Phosphatase 71, Total Protein 7.4, Albumin 3.9, Globulin 3.5, Albumin/Globulin Ratio 1.1 07/27/24 06:17: POC Glucose 259 H 07/27/24 11:10: POC Glucose 455 H* 07/27/24 11:45: Glucose 468 H* Micro: Microbiology 07/26/24 17:08 Mucosa - Nose SARS-CoV-2, Influenza & RSV (PCR) - Final Radiography Diagnostic Testing: Radiology Impression Brain CT 07/26/24 16:35 IMPRESSION: CHRONIC CHANGES. NO ACUTE FINDINGS. Reading Location: [facility] Chest X-Ray 07/26/24 17:17 IMPRESSION: No active cardiopulmonary disease. Reading Location: [facility] Physical Exam Const alert, no apparent distress and healthy appearing General Appearance: cooperative, well kempt and well developed Orientation / Consciousness: awake, oriented to person and oriented to place HEENT normocephalic, head/scalp atraumatic and moist oral mucous membranes Eyes PERRL, EOMs intact bilaterally and conjunctivae normal Neck supple, no JVD, thyroid normal and no carotid bruits General: trachea midline Resp normal respiratory effort, no retractions, no use of accessory muscles and clear to auscultation bilaterally Auscultation: Negative for rales, rhonchi or wheezes Cardio regular rate, regular rhythm, S1 normal heart sound, S2 normal heart sound, no murmurs, no rub and no gallops GI normal to inspection, nondistended, normoactive bowel sounds, soft to palpation, non-tender and non-distended Extremity no clubbing, cyanosis or edema Skin no rashes or lesions noted General Skin Exam: no breakdown Neuro CN's II-XII intact bilaterally, moves all extremities, no focal motor deficits and no sensory deficits noted Sensorium / Orientation: awake, alert, oriented to person and oriented to place Speech: speech normal Psych affect normal Assessment & Plan Assessment/Plan (1) Acute cystitis with hematuria: PLAN: Plan 1. Acute cystitis-it appears that a urine culture was not obtained, I have decided to continue the patient's antibiotic at this time. #2 uncontrolled type 2 diabetes-patient's insulin will be adjusted, when the patient is discharged home he will resume his 70/30 insulin-appears that he will need a slightly smaller dose due to low blood sugars at home. Patient will also be taken off his Amaryl at the time of discharge #3 metabolic encephalopathy-secondary to acute cystitis and hypoglycemia-patient is alert during my examination and follows commands appropriately, patient does have baseline dementia #4 mild dehydration-I do not feel the patient has acute kidney injury #5 essential hypertension-patient is on lisinopril #6 hypothyroidism-patient is on Synthroid #7 dementia-complicates care, management, recovery, and prognosis Total clinical time spent by myself addressing the patient's medical issues, reviewing all of his data, and collaborating with patient's care team: 35 minutes Charges/Coding Visit Charges Inpatient E&M: 01909 Subs Hosp L2
[2024-07-27 16:03] LABS: Bedside Glucose 325 mg/dL (74-106)
[2024-07-27 16:36] LABS: Amphetamine Urine NEGATIVE (<1000 ng/mL); Barbiturate Urine NEGATIVE (< 200 ng/mL); Benzodiazepine Urine NEGATIVE (< 200 ng/mL); Buprenorphine Urine NEGATIVE (< 200 ng/mL); Cocaine Urine NEGATIVE (< 300 ng/mL); Fentanyl, Urine NEGATIVE; Methadone Urine NEGATIVE (< 300 ng/mL); Opiates Urine NEGATIVE (< 300 ng/mL); Oxycodone, Urine NEGATIVE (< 100 ng/mL); PCP Urine NEGATIVE (< 25 ng/mL); THC Urine NEGATIVE (< 50 ng/mL)
[2024-07-27] MEDS: Insulin NPH Human 100 UNITS/ML PEN 15 UNITS SC (18:06)
[2024-07-27] MEDS: 0.9% Saline Lock 10 ML Syringe IV (21:19)
[2024-07-27] MEDS: 0.9% Normal Saline (100mL Bag) 100 ML 15 ML IV (21:20)
[2024-07-27] MEDS: Ceftriaxone 1 GM/50 ML BAG IV (21:20)
[2024-07-27 21:41] LABS: Bedside Glucose 106 mg/dL (74-106)
[2024-07-28 02:54] VITALS: BP 129/75; PULSE 69; RESP 16; TEMP 36.9; O2SAT 97
[2024-07-28 06:00] VITALS: BMI 21.4
[2024-07-28] MEDS: Levothyroxine 125 MCG Tablet PO (06:05)
[2024-07-28 06:22] LABS: Bedside Glucose 147 mg/dL (74-106)
[2024-07-28 07:21] VITALS: PULSE 88
[2024-07-28 07:29] LABS: Anion Gap 15 (5-15); BUN 31 mg/dL (4-19); Calcium,Total 8.9 mg/dL (7.6-11.0); Chloride 106 mmol/L (98-108); Creatinine, Serum 1.34 mg/dL (0.70-1.20); EST Glomerular Filtration Rate 53 (>60); Glucose 159 mg/dL (70-99); Phosphorus 2.8 mg/dL (2.7-4.5); Potassium 3.9 mmol/L (3.3-5.1); Sodium Level 140 mmol/L (133-145)
[2024-07-28] MEDS: Lactobacillis Acidophilus 1 CAP PO ×2 (07:55→13:17)
[2024-07-28] MEDS: Ascorbic Acid 500 MG Tablet 1000 MG PO (07:55)
[2024-07-28] MEDS: Cyanocobalamin 500 MCG Tablet 1000 MCG PO (07:55)
[2024-07-28] MEDS: Zinc Sulfate 50 mg zinc (220 mg) ORAL capsule PO (07:55)
[2024-07-28] MEDS: Insulin NPH Human 100 UNITS/ML PEN 15 UNITS SC (07:55)
[2024-07-28] MEDS: Cholecalciferol (VIT D3) 25 MCG TABLET (1,000 UNITS) PO (07:55)
[2024-07-28] MEDS: Heparin Injection (Vial) 5,000 UNIT/ML VIAL 5000 UNIT SC (07:56)
[2024-07-28] MEDS: Glucerna Shake 120 ML LIQUID PO ×2 (07:57→10:59)
[2024-07-28 08:34] VITALS: O2SAT 95
[2024-07-28 08:47] VITALS: BP 110/61; PULSE 101; RESP 16; TEMP 36.5; O2SAT 94
[2024-07-28] MEDS: Insulin Lispro 100 UNIT/ML INSULN.PEN SC (10:57)
[2024-07-28] MEDS: Ferrous Sulfate 325 MG Tablet PO (10:58)
[2024-07-28] MEDS: Mag Hydrox/Al Hydrox/Simeth 30 ML UDC PO (10:59)
[2024-07-28] MEDS: Magnesium Hydroxide 30 ML UDC PO (11:03)
[2024-07-28 11:13] VITALS: BP 99/52; PULSE 57; RESP 16; TEMP 36.7; O2SAT 98
[2024-07-28 11:25] LABS: Bedside Glucose 364 mg/dL (74-106)
[2024-07-28 12:26] VITALS: PULSE 83
--- NOTE | 2024-07-28 13:46 | DCINST_ITS ---
Discharge Instructions Diet Discharge Diet: 1800 Calorie Control Diet DC O2, CPAP, BIPAP needs Home O2 Discharge instructions: No Dressing / Incision Discharge Activity: Return to Normal Activity Weight Bearing Status: Full weight bearing Follow Up Care Test Results: Test results from this visit will be discussed in further detail at your follow- up appointment, if applicable. Discharge Plan Admission Admit Date/Time: 07/26/24 20:05 Primary Reason for Your Visit: cystitis Attending Provider: Dennys Buenrostro Primary Care Provider: Kb Valdez Consulting Providers: Michael Zavala Discharge Orders/Prescriptions Prescriptions: New cephalexin 500 mg tablet 500 mg PO BID Qty: 10 0RF Rx Instructions: START 07/29/24 Continued cholecalciferol (vitamin D3) 25 mcg (1,000 unit) capsule 25 mcg PO DAILY metformin 500 mg tablet extended release 24 hr 1,000 mg PO BID Qty: 360 3RF ferrous sulfate 325 MG tablet 325 mg PO DAILY (DME) lancets-blood glucose strips 1 EACH combo pack 1 each MC BID Qty: 1 1RF cyanocobalamin (vitamin B-12) 1,000 mcg tablet 1,000 mcg PO DAILY levothyroxine 125 mcg tablet 125 mcg PO DAILY lisinopril 30 mg tablet 30 mg PO DAILY (DME) pen needle, diabetic, safety 30 gauge x 1/3 needle 1 ea ALEC. UD Qty: 100 6RF Rx Instructions: 3x/day Changed Novolin 70-30 FlexPen U-100 100 unit/mL (70-30) insulin pen See Rx Instructions subcut BID Qty: 1 0RF Rx Instructions: 24 UNITS EVERY MORNING, 10 UNITS Discontinued glimepiride 2 mg tablet 2 mg PO BID Qty: 180 1RF Referrals / Follow Up: Salvador Kemp MD [Med Staff - Courtesy Staff] - See Referral Note ( SCHEDULED) Kb Valdez MD [Primary Care Provider] - Disposition Disposition (needs filled in before D/C Order can be placed): Home, Self Care
--- NOTE | 2024-07-28 14:06 | DS.PCM_ITS ---
Providers Date of Admission: 07/26/24 Date of Discharge: 07/28/24 Primary Care Physician: Dr. Kb Valdez MD Reason For Visit: UTI, CHANTALE, INTERMITTENT HYPOGLYCEMIA AND Diagnosis Discharge Diagnosis (1) Acute cystitis with hematuria: Status: Acute Code(s): N30.01 - Acute cystitis with hematuria Plan 1. Acute cystitis-it appears that a urine culture was not obtained, I have decided to continue the patient's antibiotic at this time. #2 uncontrolled type 2 diabetes-patient's insulin will be adjusted, when the patient is discharged home he will resume his 70/30 insulin-appears that he will need a slightly smaller dose due to low blood sugars at home. Patient will also be taken off his Amaryl at the time of discharge #3 metabolic encephalopathy-secondary to acute cystitis and hypoglycemia-patient is alert during my examination and follows commands appropriately, patient does have baseline dementia #4 mild dehydration-I do not feel the patient has acute kidney injury #5 essential hypertension-patient is on lisinopril #6 hypothyroidism-patient is on Synthroid #7 dementia-complicates care, management, recovery, and prognosis Total clinical time spent by myself addressing the patient's medical issues, reviewing all of his data, and collaborating with patient's care team: 35 minutes Medications at Discharge Home Medications ferrous sulfate 325 mg (65 mg iron) tablet 325 mg PO DAILY anemia 06/25/20 lancets 30 gauge and blood glucose strips combo pack ##1 06/27/20 cholecalciferol (vitamin D3) 25 mcg (1,000 unit) capsule 25 mcg PO DAILY vitamin 07/18/20 metformin 500 mg tablet,extended release 24 hr 1,000 mg (2 x 500 mg) PO BID diabetes #360 tabs 11/25/23 pen needle, diabetic, safety 30 gauge x 1/3 #100 ea 01/05/24 cyanocobalamin (vitamin B-12) 1,000 mcg tablet 1,000 mcg PO DAILY 07/26/24 levothyroxine 125 mcg tablet 125 mcg PO DAILY 07/26/24 lisinopril 30 mg tablet 30 mg PO DAILY 07/26/24 cephalexin 500 mg tablet 500 mg PO BID #10 tabs 07/28/24 insulin NPH-regular 70-30 U-100 insulin 100 unit/mL subcutaneous pen (Novolin 70-30 FlexPen U-100 Insulin) See Rx Instructions subcut BID #1 mL 07/28/24 Hospital Course Operations None Procedures None Summary of Care Provided Minutes Spent on Discharge: 32 Hospital Course: This 83-year-old white male was seen in the emergency room at [facility] due to low blood sugar levels at home and increased confusion. Workup in the emergency room included a UA which indicated the patient had cystitis, creatinine was elevated at 1.64 and BUN was 35. Patient's blood sugar was 179. Patient was admitted for acute cystitis, metabolic encephalopathy, and uncontrolled type 2 diabetes. Blood sugars were monitored and his insulin was adjusted. It was noted on admission that the admitting physician felt he had acute kidney injury-this examiner did not feel that that was the case and that he was dehydrated. Patient was seen by PT and OT, there were no untoward events during his hospitalization. On 07/28/2024, patient was seen and examined: On examination he appeared in good health and spirits. Vital signs as documented. Skin warm and dry and without overt rashes. Neck without JVD, neck was supple, trachea midline, thyroid was normal. Lungs clear bilaterally, normal air movement was noted. Heart exam notable for regular rhythm, normal sounds and absence of murmurs, rubs or gallops. Abdomen unremarkable and without evidence of organomegaly, masses, or abdominal aortic enlargement. Bowel sounds are present, abdomen is not distended. Extremities nonedematous, no cyanosis was noted, no clubbing was noted. Neuro: Cranial nerves II through XII are grossly intact, no focal motor deficits were noted, sensation to light touch and pinprick intact, motor exam 5/5 throughout. Psych: Patient is alert and oriented x3, he does not appear anxious or depressed, he does not appear agitated. Patient was felt to be stable for discharge home on 07/28/2024. Weight / BMI Weight Weight: 67.7 kg Body Mass Index (BMI) 21.4 ABG / Lab / Microbiology Data 07/27/24 04:20 07/28/24 06:42 Laboratory: Laboratory Results - last 24 hr 07/26/24 18:35: Urine Opiates Screen NEGATIVE, U Buprenorphine Qual NEGATIVE, Ur Oxycodone Screen NEGATIVE, Urine Methadone Screen NEGATIVE, Urine Fentanyl Screen NEGATIVE, Ur Barbiturates Screen NEGATIVE, Ur Phencyclidine Scrn NEGATIVE, Ur Amphetamines Screen NEGATIVE, U Benzodiazepines Scrn NEGATIVE, Urine Cocaine Screen NEGATIVE, U Cannabinoids Screen NEGATIVE 07/26/24 21:46: POC Glucose 432 H 07/26/24 21:48: POC Glucose 404 H 07/27/24 15:45: POC Glucose 325 H 07/27/24 21:18: POC Glucose 106 07/28/24 06:04: POC Glucose 147 H 07/28/24 06:42: Sodium 140, Potassium 3.9, Chloride 106, Carbon Dioxide 19.0 L, Anion Gap 15, BUN 31 H, Creatinine 1.34 H, Estim Creat Clear Calc 41.40 L, Est GFR (MDRD) Non-Af 53 L, BUN/Creatinine Ratio 23.0 H, Glucose 159 H, Calcium 8.9, Phosphorus 2.8 07/28/24 10:56: POC Glucose 364 H Microbiology: Microbiology 07/26/24 17:08 Mucosa - Nose SARS-CoV-2, Influenza & RSV (PCR) - Final D/C Instructions Discharge Diet: 1800 Calorie Control Diet Weight Bearing Status: Full weight bearing DC O2, CPAP, BIPAP Needs Home O2 Discharge instructions: No Meaningful Use Info Meaningful Use Meaningful Use Diagnoses (Choose all that apply): None applicable Ischemic Stroke Statin Dosing Therapy Reference: STATIN DOSE THERAPY REFERENCE: * Patients > 75 years receive moderate or high dose statin therapy. * Patients 75 years or YOUNGER should receive HIGH intensity statin dose unless contraindicated. You will be required to document reason for non-treatment if statin daily dose does not meet guidelines. HIGH DOSE STATIN THERAPY DAILY Atorvastatin > than or = to 40 mg Rosuvastatin > than or = to 20 mg Amlodipine + Atorvastatin > than or = to 2.5/40 mg Ezetimibe + Simvastatin 10/80 mg Simvastatin 80mg Discharge Plan Admission Admit Date/Time: 07/26/24 20:05 Primary Reason for Your Visit: cystitis Attending Provider: Dennys Buenrostro Primary Care Provider: Kb Valdez Consulting Providers: Michael Zavala Discharge Orders/Prescriptions Prescriptions: New cephalexin 500 mg tablet 500 mg PO BID Qty: 10 0RF Rx Instructions: START 07/29/24 Continued cholecalciferol (vitamin D3) 25 mcg (1,000 unit) capsule 25 mcg PO DAILY metformin 500 mg tablet extended release 24 hr 1,000 mg PO BID Qty: 360 3RF ferrous sulfate 325 MG tablet 325 mg PO DAILY (DME) lancets-blood glucose strips 1 EACH combo pack 1 each MC BID Qty: 1 1RF cyanocobalamin (vitamin B-12) 1,000 mcg tablet 1,000 mcg PO DAILY levothyroxine 125 mcg tablet 125 mcg PO DAILY lisinopril 30 mg tablet 30 mg PO DAILY (DME) pen needle, diabetic, safety 30 gauge x 1/3 needle 1 ea ALEC. UD Qty: 100 6RF Rx Instructions: 3x/day Changed Novolin 70-30 FlexPen U-100 100 unit/mL (70-30) insulin pen See Rx Instructions subcut BID Qty: 1 0RF Rx Instructions: 24 UNITS EVERY MORNING, 10 UNITS Discontinued glimepiride 2 mg tablet 2 mg PO BID Qty: 180 1RF Referrals / Follow Up: Salvador Kemp MD [Med Staff - Courtesy Staff] - See Referral Note ( SCHEDULED) Kb Valdez MD [Primary Care Provider] - Disposition Disposition (needs filled in before D/C Order can be placed): Home, Self Care Charges/Coding Visit Charges Inpatient E&M: 02692 Disch Hosp >30min
[2024-07-28] MEDS: Cephalexin 250 MG Capsule 500 MG PO (14:22)
--- NOTE | 2024-07-28 15:12 | PHA.DC.MR.R ---
Pharmacy [place] Med Reconciliation Pharmacy Service has performed discharge medication reconciliation for this patient. Attempted to funeral pre arrangement counselor x 2 but patient was discharged. Medications reviewed. The patient's discharge medication list was reviewed for discrepancies and discrepancies were resolved. Medications at Discharge Home Medications ferrous sulfate 325 mg (65 mg iron) tablet 325 mg PO DAILY anemia 06/25/20 lancets 30 gauge and blood glucose strips combo pack ##1 06/27/20 cholecalciferol (vitamin D3) 25 mcg (1,000 unit) capsule 25 mcg PO DAILY vitamin 07/18/20 metformin 500 mg tablet,extended release 24 hr 1,000 mg (2 x 500 mg) PO BID diabetes #360 tabs 11/25/23 pen needle, diabetic, safety 30 gauge x 1/3 #100 ea 01/05/24 cyanocobalamin (vitamin B-12) 1,000 mcg tablet 1,000 mcg PO DAILY 07/26/24 levothyroxine 125 mcg tablet 125 mcg PO DAILY 07/26/24 lisinopril 30 mg tablet 30 mg PO DAILY 07/26/24 cephalexin 500 mg tablet 500 mg PO BID #10 tabs 07/28/24 insulin NPH-regular 70-30 U-100 insulin 100 unit/mL subcutaneous pen (Novolin 70-30 FlexPen U-100 Insulin) See Rx Instructions subcut BID #1 mL 07/28/24
== END 2024-07-28 14:31 | disposition home or self-care (01) | DRG 637 ==
LOC: ED 19:43 → MS3 20:31
PROVIDERS: Admitting Provider Internal Medicine; Emergency Provider Emergency Medicine; PCP Family Medicine; Visit Provider Internal Medicine
DX: E11.649 Type 2 diabetes mellitus with hypoglycemia without coma (principal); G93.41 Metabolic encephalopathy; N30.01 Acute cystitis with hematuria; F03.90 Unspecified dementia, unspecified severity, without behavioral disturbance, psychotic disturbance, mood disturbance, and anxiety; E03.9 Hypothyroidism, unspecified; I10 Essential (primary) hypertension; E11.65 Type 2 diabetes mellitus with hyperglycemia; N17.9 Acute kidney failure, unspecified; Z79.4 Long term (current) use of insulin; M19.90 Unspecified osteoarthritis, unspecified site; E86.0 Dehydration; Z87.891 Personal history of nicotine dependence; Z79.84 Long term (current) use of oral hypoglycemic drugs; T50.905A Adverse effect of unspecified drugs, medicaments and biological substances, initial encounter; Z98.890 Other specified postprocedural states; Z79.899 Other long term (current) drug therapy; Z90.49 Acquired absence of other specified parts of digestive tract
CPT/HCPCS: 36415; 70450; 71045; 80048; 80053; 80307; 81001; 82077; 82607; 82728; 82746; 82947; 82962; 83036; 83540; 83550; 83735; 84100; 84443; 84484; 85025; 87631; 93005; 94668; 97161; 99285; A4216

== ENCOUNTER 2025-03-03 18:19 | Inpatient (IN) | payer MEDICARE, SELFPAY ==
[2025-03-03 18:19] VITALS: BP 114/83; PULSE 99; RESP 20; TEMP 37; O2SAT 100; BMI 21.7
--- OUTSIDE RECORDS SUMMARY | 2025-03-03 18:38 | XMS RPT_ITS | CCD ---
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 Kb Lackey Primary Care Provider Dr. Kb Lackey Referring Provider Dr. Salvador Kemp Attending Provider Kb Lackey MD Primary Care Provider August RN, Maribell Rodríguez Unavailable MD Radha Andres Emergency Provider Dr. Mk Davis Admit Provider Dr. Mk Davis Attending Provider Dr. Mk Davis Other Provider Dr. Dennys Buenrostro Attending Provider Dr. 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 Kb Lackey MD Primary Care Provider Dr. Warren Rosenberg DO Emergency Provider Dr. Michael House DO Admit Provider Unavail able Dr. Michael House DO Other Provider Unavail able Dr. Dennys Buenrostro DO Attending Provider Dr. Dennys Buenrostro DO Other Provider [phone] Dr. Kb Lackey MD Referring Provider Dr. Salvador Kemp MD Attending Provider Dennys Buenrostro Attending Unavailable Bradford, Kb Primary Care Unavailable de RuslanMichael bravo Admitting Unavailable de Ruslan, Michael Consulting Unavailable Salvador Kemp Attending Unavailable Vale, Kb Referring Unavailable Bradford, Kb Primary Care Unavailable Vale, Kb Primary Care Unavailable de Ruslan, Michael Admitting Unavailable de Ruslan, Michael Consulting Unavailable de Ruslan, Michael Attending Unavailable Dennys Buenrostro Attending Unavailable Dennys Buenrostro Consulting Unavailable Vale, Kb Referring Unavailable Vale, Kb Primary Care Unavailable Salvador Kemp Attending Unavailable Bradford, Kb Referring Unavailable Vale, Kb Primary Care Unavailable Salvador Kemp Attending Unavailable Salvador Kemp Attending Unavailable Bradford, Kb Primary Care Unavailable Bradford, Kb Referring Unavailable Salvador Kemp Attending Unavailable Bradford, Kb Primary Care Unavailable Vale, Kb Referring Unavailable VALE, KB Rodríguez Primary Care Unavailable VALE, KB Rodríguez Referring Unavailable VALE, KB Rodrgíuez Primary Care Unavailable VALE, KB Rodríguez Attending Unavailable VALE, KB Rodríguez Primary Care Unavailable VALE, KB Rodríguez Referring Unavailable VALE, KB Rodríguez Primary Care Unavailable VALE, KB Rodríguez Attending Unavailable Medications Current Medications Medication Drug Class(es) Dates Sig (Normalized) Sig (Original) cephalexin 500 mg oral tablet (3 sources) Cephalosporin Antibacterial Start: 07-28-2024 take 1 tablet by mouth twice daily Cephalexin 500 mg tablet Active 500 mg PO TWICE A DAY 10 July 28, 2024 12:00am START 07/29/24 Start: 06-07-2022 End: 07-16-2022 take 1 capsule by mouth every twelve hours Cephalexin 500 mg capsule Discontinued 500 mg PO Q12H 10 June 07, 2022 1:00am July 16, 2022 9:20am start on 06/08/22 cholecalciferol 0.025 mg oral capsule (20 sources) Vitamin D Start: 07-18-2020 take 1 capsule by mouth once daily Cholecalciferol (Vitamin D3) 25 mcg (1,000 unit) capsule Active 25 ug PO DAILY July 18, 2020 12:00am vitamin Start: 10-16-2016 take 1 capsule by [facility] daily Cholecalciferol, Vitamin D3, 1,000 unit cap Indications: Vitamin D deficiency Take 1 capsule by mouth once daily. 90 capsule 1 10/16/2016 Active Comment on above: Take 1 capsule by mouth once daily. ferrous sulfate 325 mg oral tablet (20 sources) Start: ferrous sulfate 325 mg (65 mg iron) tablet Take 325 mg by mouth. 06/25/2020 Active Comment on above: Take 325 mg by mouth. insulin aspart prot/insuln asp (NOVOLOG MIX 70-30 SUBCUTANEOUS) (20 sources) inject 24 [IU] by subcutaneous injection twice daily at mealtime, then inject 10 [IU] by subcutaneous injection once daily at bedtime insulin aspart prot/insuln asp (NOVOLOG MIX 70-30 SUBCUTANEOUS) Inject subcutaneously two times a day with meals. Per [facility] 24 units every morning and 10 units qhs Active inject 20 [IU] by edwards bcutaneous injection twice daily at mealtime, then inject 8 [IU] by subcutaneous injection once in the morning insulin aspart prot/insuln asp (NOVOLOG MIX 70-30 SUBCUTANEOUS) Inject subcutaneously twice daily with meals. Taking 20 units in AM and 8 units in PM. Per endo rony Kemp Active inject 20 [IU] by edwards bcutaneous injection twice daily at mealtime, then inject 8 [IU] by subcutaneous injection once in the morning insulin aspart prot/insuln asp (NOVOLOG MIX 70-30 SUBCUTANEOUS) Inject subcutaneously twice daily with meals. Taking 20 units in AM and 8 units in PM. Per endo rony Kemp 0 Active inject 16 [IU] by edwards bcutaneous injection twice daily at mealtime, then inject 10 [IU] by subcutaneous injection once in the morning insulin aspart prot/insuln asp (NOVOLOG MIX 70-30 SUBCUTANEOUS) Inject subcutaneously twice daily with meals. Taking 16 units in AM and 10 units in PM. Per bernarda Kemp 0 Active insulin aspart p rot/insuln asp (NOVOLOG MIX 70-30 SUBCUTANEOUS) Inject 10 Units subcutaneously twice daily with meals. 0 Active Comment on above: Inject 10 Units subc utaneously twice daily with meals. Inject subcutaneousl y twice daily with meals. Taking 16 units in AM and 10 units in PM. Per endo rony Kemp Inject subcutaneousl y twice daily with meals. Taking 20 units in AM and 8 units in PM. Per endo rony Kemp Insulin Nph And Regular Human (3 sources) Insulin Start: 07-28-2024 Insulin Nph And Regular Human (Novolin 70-30 Flexpen U-100) 100 unit/mL (70-30) insulin pen Active 0 SC TWICE A DAY 1 0 July 28, 2024 2:02pm 24 UNITS EVERY MORNING, 10 UNITS Start: 07-26-2024 End: 07-28-2024 Insulin Nph And Regular Vandana n (Novolin 70-30 Flexpen U-100) 100 unit/mL (70-30) insulin pen Discontinued 0 SC TWICE A DAY July 26, 2024 12:00am July 28, 2024 2:02pm 28 u breakfast, 12 u supper subcutaneously twice a day; Start: 04-26-2024 End: 07-26-2024 Insulin Nph And Regular Vandana n (Novolin 70-30 Flexpen U-100) 100 unit/mL (70-30) insulin pen Discontinued 0 SC TWICE A DAY 3 April 26, 2024 1:00am July 26, 2024 6:40pm 20 u breakfast, 8 u supper subcutaneously twice a day; levothyroxine sodium 0.125 mg oral tablet (20 sources) l-Thyroxine Start: 11-25-2023 End: 07-26-2024 take 1 tablet by mouth once daily Levothyroxine 137 mcg tablet Discontinued 137 ug PO DAILY November 25, 2023 12:00am July 26, 2024 5:04pm Start: 02-04-2022 End: 11-22-2025 take 1 tablet by mouth once daily for thyroid dysfunction levothyroxine (SYNTHROID) 125 mcg tablet Indications: Hypothyroidism, unspecified type Take 1 tablet by mouth once daily. Take on empty stomach. For Thyroid 90 tablet 3 11/22/2024 11/22/2025 Active Start: 12-19-2021 End: 12-19-2022 take 1 tablet by mouth once daily for thyroid dysfunction levothyroxine (SYNTHROID) 137 mcg tablet Indications: Hypothyroidism, unspecified type Take 1 tablet by mouth once daily. Take on empty stomach. For thyroid. Hold on Sundays 90 tablet 3 12/19/2021 02/04/2022 Discontinued Start: 06-15-2021 End: 06-15-2022 take 1 tablet by mouth once daily for thyroid dysfunction levothyroxine (SYNTHROID) 150 mcg tablet Take 1 tablet by mouth once daily. Take on empty stomach. For thyroid. Hold on Sundays 90 tablet 3 06/15/2021 12/19/2021 Discontinued Start: 03-17-2014 End: 11-25-2023 take 137 ug by mouth once daily Levothyroxine Disconti nued 137 ug PO DAILY March 17, 2014 1:00am November 25, 2023 9:56am hypothyroidism Start: 03-17-2014 take 137 ug by mouth once elsy y Levothyroxine Active 137 MCG PO DAILY March 17, 2014 12:00am Comment on above: Take 1 tablet by [facility]ster th once daily. Take on empty stomach. For thyroid. Hold on Sundays Take 1 tablet by [facility]ster th once daily. Take on empty stomach. For Thyroid 24 hr metFORMIN hydrochloride 500 mg extended release oral tablet (20 sources) Biguanide Start: End: take 2 tablets by mouth twice daily metFORMIN ER (GLUCOPHAGE XR) 500 mg 24 hr tablet Indications: Type 2 diabetes mellitus without complication, without long-term current use of insulin (HCC) Take 2 tablets by mouth twice daily. 360 tablet 3 04/25/2022 Active Start: 09-12-2021 End: 04-25-2023 take 2 tablets by mouth twice daily metFORMIN ER (GLUCOPHAGE XR) 500 mg 24 hr tablet Indications: Type 2 diabetes mellitus without complication, without long-term current use of insulin (HCC) Take 2 tablets by mouth twice daily. 360 tablet 3 04/25/2022 Active Start: 11-08-2020 End: 12-18-2022 take 2 tablets by mouth once daily at breakfast metFORMIN ER (GLUCOPHAGE XR) 500 mg 24 hr tablet Indications: Type 2 diabetes mellitus without complication, without long-term current use of insulin (HCC) Take 2 tablets by mouth daily with breakfast. 180 tablet 3 12/18/2021 04/25/2022 Discontinued Start: 06-27-2020 End: 09-12-2021 take 1 tablet by mouth twice daily Metformin 500 MG tablet Discontinued 500 mg PO TWICE A DAY 60 1 June 27, 2020 10:06am September 12, 2021 8:47am diabetes Start: 06-25-2020 End: 06-27-2020 take 1 tablet by mouth once daily Metformin 500 MG tablet Discontinued 500 mg PO DAILY June 25, 2020 12:00am June 27, 2020 10:06am diabetes Comment on above: Take 2 tablets by mo [facility] daily with breakfast. Take 2 tablets by mo [facility] twice daily. mv,iron,min-FA-diet keena cmb.24 400 mcg tab (20 sources) Start: 05-06-2019 take 1 tablet by mouth once daily mv,iron,min-FA-di etary cmb.24 400 mcg tab Take 1 tablet by mouth once daily. 05/06/2019 Active Start: 05-06-2019 take 1 tablet by [facility] once daily mv,iron,kbq-OI-vadadwa cmb.24 400 mcg ta b Take 1 tablet by mouth once daily. 0 05/06/2019 Active Comment on above: Take 1 tablet by [facility] once daily. nystatin [id number] unt/ml topical cream (8 sources) Polyene Antifungal Start: 08-09-2024 nystatin (MYCOSTATIN) cream Apply to affected area two times a day. 30 g 08/09/2024 Active Pen Needle, Diabetic, Safety (6 sources) Start: 04-12-2021 Pen Needle, Diabetic, Safety Active 1 EACH MISCELL. DIRECTED April 12, 2021 11:09am 3x/day Start: 12-01-2020 End: 04-12-2021 Pen Needle, Diabetic, Safety Discontinued 1 EACH MISCELL. DIRECTED December 01, 2020 9:15am April 12, 2021 11:09am 3x/day Start: 06-27-2020 End: 12-01-2020 Pen Needle, Diabetic, Safety Discontinued 1 EACH MISCELL. DIRECTED June 26, 2020 11:00pm December 01, 2020 9:15am vitamin b12 1 mg oral tablet (20 sources) Vitamin B12 Start: 05-31-2024 take 1 tablet by mouth once daily cyanocobalamin (VITAMIN B-12) 1,000 mcg tab Take 1 tablet by mouth once daily. 90 tablet 3 05/31/2024 Active Start: 12-01-2020 End: 05-29-2024 take 1 tablet by mouth once daily cyanocobalamin (VITAMIN B-12) 1,000 mcg tab Take 1 tablet by mouth once daily. 90 tablet 3 06/26/2023 05/29/2024 Discontinued Start: 03-17-2014 End: 07-26-2024 take 2 tablets by mouth once daily Cyanocobalamin (Vitamin B-12) 500 MCG tablet Discontinued 1000 ug PO DAILY@799March 17, 2014 1:00am July 26, 2024 5:04pm vitamin Start: 03-17-2014 take 1000 ug by mout h once daily Cyanocobalamin (Vitamin B-12) Active 1000 MCG PO DAILY@799March 17, 2014 12:00am Comment on above: Take 1 tablet by chester th once daily. Completed/Discontinued Medications Medication Drug Class(es) Dates Sig (Normalized) Sig (Original) glimepiride 2 mg oral tablet (20 sources) Sulfonylurea Start: 06-11-2021 End: 08-03-2024 take 1 tablet by mouth twice daily Glimepiride 2 mg tablet Discontinued 2 mg PO TWICE A DAY 180 April 21, 2024 6:25pm July 28, 2024 1:59pm Start: 06-11-2021 End: 09-12-2021 take 1 tablet by mouth once daily Glimepiride 2 mg tablet Discontinued 2 mg PO DAILY 90 June 11, 2021 1:00am September 12, 2021 8:47am Comment on above: Take 2 mg by mouth. Take 2 mg by mouth t wice daily with meals. Updated per endo note 3 ml insulin aspart protamine, human 70 unt/ml / insulin aspart, human 30 unt/ml pen injector (10 sources) Insulin Analog Start: 05-18-2024 End: 07-26-2024 Insulin Asp Prt-Insulin Aspart (Novolog Mix 70-30flexpen U-100) 100 unit/mL (70-30) insulin pen Discontinued 0 SC TWICE A DAY 15 May 18, 2024 3:34pm July 26, 2024 6:39pm Diabetes mellitus Type 2 diabetes mellitus without complications 25 u with breakfast, 15 u supper subcutaneously twice a day; Start: 10-09-2022 End: 05-18-2024 Insulin Asp Prt-Insulin Aspa rt (Novolog Mix 70-30flexpen U-100) 100 unit/mL (70-30) insulin pen Discontinued 0 SC TWICE A DAY 18 January 05, 2024 2:47pm February 11th, 2025 3:35pm Diabetes mellitus Type 2 diabetes mellitus without complications 20 u with breakfast, 8 u supper subcutaneously twice a day; Start: 06-13-2022 End: 10-09-2022 Insulin Asp Prt-Insulin Aspa rt (Novolog Mix 70-30flexpen U-100) 100 unit/mL (70-30) insulin pen Discontinued 0 SC TWICE A DAY 18 June 13, 2022 1:58pm October 09, 2022 4:04pm Diabetes mellitus Type 2 diabetes mellitus without complications 16 u with breakfast, 10 u supper subcutaneously twice a day; 3 ml insulin aspart, human 100 unt/ml pen injector (6 sources) Insulin Analog Start: 06-05-2022 End: 06-13-2022 Insulin Aspart U-100 (Novolog Flexpen U-100 Insulin) 100 unit/mL (3 mL) Insulin Pen Discontinued 10 U SC WITH DINNER June 05, 2022 1:00am June 13, 2022 1:58pm diabetes Start: 06-05-2022 End: 06-13-2022 Insulin Aspart U-100 (Novolo g Flexpen U-100 Insulin) 100 unit/mL (3 mL) Insulin Pen Discontinued 16 U SC WITH BREAKFAST June 05, 2022 1:00am June 13, 2022 1:58pm diabetes 3 ml insulin glargine 100 unt/ml pen injector (14 sources) Insulin Analog Start: 04-08-2021 End: 04-12-2021 Insulin Glargine 100 UNITS/ML insulin pen Discontinued 14 U SC DAILY 5 April 08, 2021 6:44pm April 12, 2021 12:09pm Start: 04-08-2021 End: 12-17-2021 Insulin Glargine 100 unit/mL (3 mL) insulin pen Discontinued 14 U SC DAILY 5 April 12, 2021 12:08pm December 17, 2021 9:23am Start: 11-08-2020 End: 01-02-2022 inject 10 [IU] by subcutaneous injection once daily in the morning as needed insulin glargine (LANTUS SOLOSTAR U-100 INSULIN) 100 unit/mL (3 mL) Inject 10 Units subcutaneously every morning. Using it prn per Dr. Kemp 0 11/08/2020 01/02/2022 Discontinued (Course of therapy completed) Start: 06-27-2020 End: 04-08-2021 Insulin Glargine 100 UNITS/M L insulin pen Discontinued 10 U SC DAILY 5 June 27, 2020 12:00am April 08, 2021 6:44pm Start: 06-27-2020 End: 04-08-2021 Insulin Glargine Discontinue d 10 UNITS SC DAILY June 26, 2020 11:00pm April 08, 2021 5:44pm Comment on above: Inject 10 Units subc utaneously every morning. Using it prn per Dr. Kemp lisinopril 30 mg oral tablet (20 sources) Angiotensin Converting Enzyme Inhibitor Start: End: take 1 tablet by mouth once daily lisinopril (ZESTRIL) 30 mg tablet Indications: Essential hypertension, benign Take 1 tablet by mouth once daily. 90 tablet 3 12/17/2023 12/03/2024 Discontinued Start: 12-23-2022 End: 12-23-2022 take 1.5 tablets by mouth once daily lisinopril (ZESTRIL) 20 mg tablet Indications: Essential hypertension, benign Take 1.5 tablets by mouth once daily. 135 tablet 3 12/23/2022 12/23/2022 Discontinued Start: 12-01-2020 End: 07-26-2024 take 1 tablet by mouth once daily Lisinopril 20 mg tablet Discontinued 20 mg PO DAILY March 18, 2022 1:00am July 26, 2024 5:04pm blood pressure Start: 03-17-2014 End: 03-18-2022 take 2 tablets by mouth once daily Lisinopril 10 MG tablet Discontinued 20 mg PO DAILY March 17, 2014 1:00am March 18, 2022 9:31am hypertension On Hold: Hold lisinopril until follow-up with your physician in renal function has improved Start: 03-17-2014 End: 03-18-2022 take 20 mg by mouth once daily Lisinopril Discontinued 20 MG PO DAILY March 17, 2014 12:00am March 18, 2022 8:31am Comment on above: Take 1 tablet by [facility]ster th once daily. Take 1.5 tablets by mouth once daily. Pen Needle, Diabetic, Safety 1 EACH needle (1 source) Start: 06-27-2020 End: 12-01-2020 Pen Needle, Diabetic, Safety 1 EACH needle Discontinued 1 NMA MISCELL. DIRECTED June 27, 2020 12:00am December 01, 2020 10:15am Problems Active Problems Problem Classification Problem Date Documented Da te Episodic/Chronic Chronic kidney disease (20 sources) Chronic kidney disease stage 1; Translations: [Chronic kidney disease, stage 1] Onset: 04-28-2018 Resolved: 02-19-2024 Chronic Deficiency and other anemia (4 sources) Anemia; Translations: [Anemia, unspecified] 08-03-2024 Episodic Diabetes mellitus with complications (20 sources) Type 2 diabetes mellitus; Translations: [Type 2 diabetes mellitus with diabetic chronic kidney disease] Onset: 10-13-2019 02-19-2024 Chronic Diabetes mellitus without complication (1 source) Diabetes mellitus without complication; Translations: [Type 2 diabetes mellitus with stage 3a chronic kidney disease, without long-term current use of insulin (HCC)] Onset: 02-19-2024 Essential hypertension (20 sources) Benign essential hypertension; Translations: [Essential (primary) hypertension] Onset: 11-22-2011 11-22-2011 Chronic Nutritional deficiencies (20 sources) Vitamin D deficiency; Translations: [Vitamin D deficiency, unspecified] Onset: 01-23-2010 01-23-2010 Chronic Other aftercare (1 source) 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; Translations: [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] Onset: 11-22-2024 Episodic Other diseases of kidney and ureters (2 sources) Renal impairment; Translations: [Disorder of kidney and ureter, unspecified] 07-26-2023 Episodic Other ear and sense organ disorders (20 sources) Hearing loss; Translations: [Unspecified hearing loss, unspecified ear] Onset: 10-06-2009 10-06-2009 Chronic Other endocrine disorders (1 source) Hypoglycemia; Translations: [Hypoglycemia, unspecified] 08-03-2024 Chronic Other endocrine disorders (1 source) Hypoglycemia, unspecified; Translations: [Hypoglycemia] Onset: 08-03-2024 Chronic Other nervous system disorders (2 sources) Metabolic encephalopathy; Translations: [Metabolic encephalopathy] 08-05-2024 Chronic Other nervous system disorders (1 source) Metabolic encephalopathy; Translations: [Metabolic encephalopathy] Onset: 08-03-2024 Chronic Septicemia (except in labor) (6 sources) Sepsis; Translations: [Sepsis, unspecified organism] 06-05-2022 Episodic Thyroid disorders (20 sources) Hypothyroidism; Translations: [Hypothyroidism, unspecified] Onset: 06-17-2005 04-24-2015 Chronic Unclassified (1 source) SCHEDULED Unclassified (1 source) Unspecified dementia, moderate, without behavioral disturbance, psychotic disturbance, mood disturbance, and anxiety; Translations: [Unspecified dementia, moderate, without behavioral disturbance, psychotic disturbance, mood disturbance, and anxiety] Onset: 11-22-2024 Past or Other Problems Problem Classification Problem Date Documented Da te Episodic/Chronic Abdominal hernia (20 sources) Inguinal hernia; Translations: [Unilateral inguinal hernia, without obstruction or gangrene, not specified as recurrent] Onset: 01-05-2007 Resolved: 10-06-2009 10-06-2009 Episodic Acute and unspecified renal failure (20 sources) Acute injury of kidney; Translations: [Acute kidney failure, unspecified] Onset: 12-18-2021 Resolved: 12-23-2022 12-18-2021 Episodic Administrative/social admission (20 sources) Patient encounter status; Translations: [Other specified counseling] Onset: 06-15-2021 06-15-2021 Episodic Deficiency and other anemia (20 sources) Iron deficiency anemia; Translations: [Iron deficiency anemia, unspecified] Onset: 04-26-2016 04-26-2016 Episodic Deficiency and other anemia (1 source) Anemia, unspecified; Translations: [Anemia, unspecified type] Onset: 09-15-2024 Episodic Deficiency and other anemia (1 source) Iron deficiency anemia, unspecified; Translations: [Iron deficiency anemia, unspecified iron deficiency anemia type] Onset: 04-26-2016 Episodic Delirium, dementia, and amnestic and other cognitive disorders (20 sources) Dementia; Translations: [Unspecified dementia without behavioral disturbance] Onset: 03-20-2009 Resolved: 05-05-2017 05-05-2017 Chronic Diabetes mellitus without complication (20 sources) Type 2 diabetes mellitus without complication; Translations: [Type 2 diabetes mellitus without complications] Onset: 10-13-2019 Resolved: 12-23-2022 10-13-2019 Chronic Diabetes mellitus without complication (20 sources) Acute hyperglycemia; Translations: [Hyperglycemia, unspecified] Onset: 12-18-2021 Resolved: 12-23-2022 12-18-2021 Episodic E Codes: Adverse effects of medical drugs (3 sources) Adverse reaction to drug; Translations: [Adverse effect of unspecified drugs, medicaments and biological substances, initial encounter] Onset: 08-03-2024 08-05-2024 Episodic Fluid and electrolyte disorders (20 sources) Dehydration; Translations: [Dehydration] Onset: 12-18-2021 Resolved: 12-23-2022 12-18-2021 Episodic Gastrointestinal hemorrhage (20 sources) Hematochezia; Translations: [Melena] Onset: 07-07-2015 Resolved: 04-25-2016 04-25-2016 Episodic Genitourinary symptoms and ill-defined conditions (7 sources) Proteinuria; Translations: [Proteinuria, unspecified] Onset: 08-03-2024 07-28-2023 Episodic Mood disorders (20 sources) Recurrent major depressive episodes, moderate ; Translations: [Major depressive disorder, recurrent, moderate] Onset: 01-26-2008 Resolved: 12-23-2022 12-23-2022 Chronic Nutritional deficiencies (20 sources) Cobalamin deficiency; Translations: [Deficiency of other specified B group vitamins] Onset: 06-30-2009 06-30-2009 Episodic Other diseases of kidney and ureters (1 source) Disorder of kidney and ureter, unspecified; Translations: [Renal insufficiency] Onset: 08-03-2024 Episodic Other nervous system disorders (20 sources) Tremor; Translations: [Tremor, unspecified] Onset: 12-30-2008 12-30-2008 Episodic Residual codes; unclassified (20 sources) Family history of cancer of colon; Translations: [Family history of malignant neoplasm of digestive organs] Onset: 07-07-2015 07-07-2015 Episodic Residual codes; unclassified (1 source) Altered mental status, unspecified; Translations: [Altered mental status, unspecified] Onset: 08-04-2024 Episodic Unclassified (3 sources) gallbladder 10-25-2021 Urinary tract infections (11 sources) Urinary tract infectious disease; Translations: [Urinary tract infection, site not specified] Onset: 08-03-2024 06-05-2022 Episodic Results Test Name Value Interpretation Reference Range Facility Endocrinology Visit Reporton 11-22-2024 Endocrinology Visit Report [facility] [address] [place] [address]. [address] [place] [address] OFFICE VISIT Date of Service: 11/22/24 MR#: [id number] Acct: [id number] Name: JEAN-CLAUDE DOUGLAS Rep #: [id number] : 1940 Provider: Betsey Garcia Age/Sex: 84/M Location: [facility] [place] Status: Signed Intake Vital Signs 08/03/24 13:27 11/22/24 13:31 Height 5 ft 10 in 5 ft 10 in Weight: 151 lb 156 lb BMI 21.7 22.4 BP 109/68 111/65 Blood Pressure Location Rt brachial Lt brachial Position Sitting Sitting Pulse 59 L 65 Pulse Source Monitor Monitor Pulse Oximetry (%) 96 95 Oxygen Delivery Method room air room air Intake Visit Reasons: 3 M FU Chief Complaint: Diabetes Allergies No Known Allergies Allergy (Verified 08/03/24 13:29) Have you fallen in the past year?: No PFSH Medical History Acute metabolic encephalopathy Adverse drug reaction Hypoglycemia associated with type 2 diabetes mellitus Acute cystitis with hematuria CHANTALE (acute kidney injury) Dementia Benign essential hypertension Hypothyroidism (acquired) Diabetes Vision problem Thyroid disease Hearing problem Cataract gallbladder Hernia Hypertension Hypothyroidism Diabetes mellitus Surgical History History of cholecystectomy Family History Other Cancer Social History Smoking Status: Former smoker alcohol intake: current alcohol intake frequency: 0-2 drinks per day substance use type: does not use what type of physical activity do you participate in: walking frequency: daily HPI HPI Chief Complaint: Diabetes Details: JEAN-CLAUDE DOUGLAS, is a 84 M who presents to the office today for follow up. A1C is 9.9% down from 11.7% He is alone today. He states his diet is better, he is eating more vegetables and less cookies. He has put on a few pounds (was underweight) No complaints. He is using CGM which is keeping him safe from severe hypoglycemia. He frequents has sugars over 300 and under 100. ROS Const Constitutional: No fatigue or weight change ENT ENT: Positive for abnormal hearing; No dizziness/vertigo Cardio Cardiology: No chest pain at rest, chest pain with exertion, shortness of breath or palpitations Musc Musculoskeletal: No abnormal gait Neuro Neurology: Positive for abnormal hearing and memory loss; No abnormal gait Psych Psychiatric: Positive for memory loss Skin Skin: No wounds Endo Endocrine: No fatigue or weight change Exam Const General: cooperative, healthy appearing, comfortable, no acute distress, well developed and not cushingoid Nutritional Appearance: well nourished Orientation: alert, awake and oriented x3 HENMO Head: normal to inspection Ears: hearing grossly normal bilaterally Nose: external nose normal Mouth: oral mucosae normal Eyes General: appearance normal, both eyes and all related structures Alignment and Position: alignment normal Periorbital: periorbital findings normal Eyelids: eyelids normal Conjunctivae: conjunctivae normal Neck Neck: normal visual inspection Neck mass: No Chest Chest palpation inspection: normal inspection of the chest Resp Effort Inspection: normal respiratory effort, able to speak in complete sentences, symmetric chest movement, no audible wheezes and no cough Cardio Rate: regular rate Rhythm: regular rhythm Skin General: no rashes or lesions noted Neuro General: patient alert, patient awake and patient oriented x3 Cranial Nerves: CN's II-XI intact bilaterally Cognition: normal cognition Speech: speech normal Gait: normal gait Motor: muscle tone normal throughout Extrem General: no edema Psych Appearance: grossly normal Mental Status: mental status grossly normal Mood: congruent mood Affect: normal affect Speech and Movement: speech and movement normal Attitude: cooperative Thought Process: normal Thought Content: normal Judgment: judgment good Results POC A1C POC A1C 9.9 % Last Edit by Denisse Lisa on 11/22/24 13:40 Clinical Quality Measures Falls Risk Screening/Assistive Devices Have you fallen in the past year?: No Assessment and Plan Assessment and Plan (1) Diabetes: Status: Chronic Qualifiers: Diabetes mellitus type: type 2 Diabetes mellitus shelter insulin use: with shelter use Diabetes mellitus complication status: with neurologic complications Diabetes mellitus complication detail: with polyneuropathy Qualified Code(s): E11.42 - Type 2 diabetes mellitus with diabetic polyneuropathy; 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 Normal [facility] HBA1C (OUTSIDE)on 11-22-2024 HbA1c (Bld) [Mass fraction] 9.9 % [facility] Comment on above: Dr Kemp [facility] Basic metabolic 2000 panelon 09-15-2024 Anion gap [Moles/Vol] 14 mmol/L Normal 8-15 [facility] Comment on above: Order Comment: Speci men Type: BLOOD SPECIMENOrdering Facility: [facility] Address: [address] [place] [address] Performed By: #### 5 0190-8, 2276-4, 3016-3, 95677-2 ####[facility] [id number] [place] [id number] [place] Calcium [Mass/Vol] 10.0 mg/dL Normal 8.5-10.2 [facility] Comment on above: Order Comment: Speci men Type: BLOOD SPECIMENOrdering Facility: [facility] Address: [address] [place] [address] Performed By: #### 5 0190-8, 6-4, 3016-3, 69334-0 ####[facility] [id number] [place] [address] [place] Chloride [Moles/Vol] 105 mmol/L Normal 98-107 [facility] Comment on above: Order Comment: Speci men Type: BLOOD SPECIMENOrdering Facility: [facility] Address: [address] [place], [place] [address] Performed By: #### 5 0190-8, 2276-4, 3016-3, 95213-3 ####[facility] [id number] [place] [id number] [place] CO2 [Moles/Vol] 24 mmol/L Normal 22-30 [facility] Comment on above: Order Comment: Speci men Type: BLOOD SPECIMENOrdering Facility: [facility] Address: [address] [place], [place] [address] Performed By: #### 5 0190-8, 2276-4, 3016-3, 19030-8 ####[facility] [id number] [place] [id number] [place] Creatinine [Mass/Vol] 1.36 mg/dL High 0.73-1.22 [facility] Comment on above: Order Comment: Deena mcnally Type: BLOOD SPECIMENOrdering Facility: [facility] Address: [address] [place] [address] Performed By: #### 5 0190-8, 2276-4, 3016-3, 20531-0 ####[facility] [id number] [place] [id number] [place] Creatinine and Glomerular filtration rate.predicted panel (S/P/Bld) 52 mL/min/1.73m??? Low >=60 [facility] Comment on above: Order Comment: Deena mcnally Type: BLOOD SPECIMENOrdering Facility: [facility] Address: [address] [place] [address] Result Comment: Myriam mated Glomerular Filtration Rate (eGFR) is calculated using the 2020 CKD-EPI creatinine equation. This equation utilizes serum creatinine, sex, and age as parameters. The creatinine assay has traceable calibration to isotope dilution-mass spectrometry. Refer to KDIGO guidelines for clinical interpretation. In patients with unstable renal function, e.g. those with acute kidney injury, the eGFR may not accurately reflect actual GFR. Performed By: #### 5 0190-8, 6-4, 3016-3, 03184-9 ####[facility] [id number] [place] [id number] [place] Glucose [Mass/Vol] 93 mg/dL Normal 74-99 [facility] Comment on above: Order Comment: Deena dali Type: BLOOD SPECIMENOrdering Facility: [facility] Address: [address] [place] [address] Result Comment: The [place] [employer] (ADA) provides guidance for cutoff values for fasting glucose and random glucose. The ADA defines fasting as no caloric intake for at least 8 hours. Fasting plasma glucose results between 100 to 125 mg/dL indicate increased risk for diabetes (prediabetes). Fasting plasma glucose results greater than or equal to 126 mg/dL meet the criteria for diagnosis of diabetes. In the absence of unequivocal hyperglycemia, results should be confirmed by repeat testing. In a patient with classic symptoms of hyperglycemia or hyperglycemic crisis, random plasma glucose results greater than or equal to 200 mg/dL meet the criteria for diagnosis of diabetes. Reference: Standards of Medical Care in Diabetes 2016, [place] [employer]. Diabetes Care. 2016.39(Suppl 1). Performed By: #### 5 0190-8, 2276-4, 6-3, 59364-6 ####[facility] [id number] [place] [address] [place] Potassium [Moles/Vol] 4.0 mmol/L Normal 3.7-5.1 [facility] Comment on above: Order Comment: Speci men Type: BLOOD SPECIMENOrdering Facility: [facility] Address: [address] [place] [address] Performed By: #### 5 0190-8, 6-4, 3015-3, 17528-1 ####[facility] [id number] [place] [address] [place] Sodium [Moles/Vol] 143 mmol/L Normal 136-144 [facility] Comment on above: Order Comment: Deena mcnally Type: BLOOD SPECIMENOrdering Facility: [facility] Address: [address] [place] [address] Performed By: #### 5 0190-8, 6-4, 3015-3, 25995-4 ####[facility] [id number] [place] [id number] [place] Urea nitrogen [Mass/Vol] 29 mg/dL High 9-24 [facility] Comment on above: Order Comment: Somi men Type: BLOOD SPECIMENOrdering Facility: [facility] Address: [address] [place] [address] Performed By: #### 5 0190-8, 2276-4, 6-3, 94687-5 ####[facility] [id number] [address] [place] [address] [place] CBC W Auto Differential pane l (Bld)on 09-15-2024 Basophils (Bld) [#/Vol] 0.04 10*3/uL Normal <0.11 [facility] Comment on above: Order Comment: Speci men Type: BLOOD SPECIMENOrdering Facility: [facility] Address: [address] [place] [address] Performed By: #### 5 7021-8 ####[facility] [id number] [address], [facility] [place] Basophils/100 WBC (Bld) 0.5 % Normal [facility] Comment on above: Order Comment: Speci men Type: BLOOD SPECIMENOrdering Facility: [facility] Address: [address] [place] [address] Performed By: #### 5 7021-8 ####[facility] [id number] [address], [place] [address] [place] Differential cell count method Nom (Bld) Auto Normal [facility] Comment on above: Order Comment: Speci men Type: BLOOD SPECIMENOrdering Facility: [facility] Address: [address] [place] [address] Performed By: #### 5 7021-8 ####[facility] [id number] [address], [place] [address] [place] Eosinophils (Bld) [#/Vol] 0.11 10*3/uL Normal <0.46 [facility] Comment on above: Order Comment: Speci men Type: BLOOD SPECIMENOrdering Facility: [facility] Address: [address] [place] [address] Performed By: #### 5 7021-8 ####[facility] [id number] [address] [place] [address] [place] Eosinophils/100 WBC (Bld) 1.5 % Normal [facility] Comment on above: Order Comment: Speci men Type: BLOOD SPECIMENOrdering Facility: [facility] Address: [address] [place] [address] Performed By: #### 5 7021-8 ####[facility] [id number] [place] [address] [place] Erythrocyte distribution width (RBC) [Ratio] 14.3 % Normal 11.5-15.0 [facility] Comment on above: Order Comment: Speci men Type: BLOOD SPECIMENOrdering Facility: [facility] Address: [address] [place] [address] Performed By: #### 5 7021-8 ####[facility] [id number] [place] [address] [place] Hematocrit (Bld) [Volume fraction] 36.1 % Low 39.0-51.0 [facility] Comment on above: Order Comment: Speci men Type: BLOOD SPECIMENOrdering Facility: [facility] Address: [address] [place] [address] Performed By: #### 5 7021-8 ####[facility] [id number] [place] [address] [place] Hemoglobin (Bld) [Mass/Vol] 11.8 g/dL Low 13.0-17.0 [facility] Comment on above: Order Comment: Speci men Type: BLOOD SPECIMENOrdering Facility: [facility] Address: [address] [place] [address] Performed By: #### 5 7021-8 ####[facility] [id number] [place] [address] [place] Immature granulocytes (Bld) [#/Vol] 0.04 10*3/uL Normal <0.10 [facility] Comment on above: Order Comment: Speci men Type: BLOOD SPECIMENOrdering Facility: [facility] Address: [address] [place] [address] Performed By: #### 5 7021-8 ####[facility] [id number] [place] [address] [place] Immature granulocytes/100 WBC (Bld) 0.5 % Normal [facility] Comment on above: Order Comment: Speci men Type: BLOOD SPECIMENOrdering Facility: [facility] Address: [address] [place] [address] Performed By: #### 5 7021-8 ####[facility] [id number] [place] [address] [place] Lymphocytes (Bld) [#/Vol] 2.10 10*3/uL Normal 1.00-4.00 [facility] Comment on above: Order Comment: Speci men Type: BLOOD SPECIMENOrdering Facility: [facility] Address: [address] [place] [address] Performed By: #### 5 7021-8 ####[facility] [id number] [address] [place] Lymphocytes/100 WBC (Bld) 27.7 % Normal [facility] Comment on above: Order Comment: Speci men Type: BLOOD SPECIMENOrdering Facility: [facility] Address: [address] [place] [address] Performed By: #### 5 7021-8 ####[facility] [id number] [place] [address] [place] MCH (RBC) [Entitic mass] 29.6 pg Normal 26.0-34.0 [facility] Comment on above: Order Comment: Speci men Type: BLOOD SPECIMENOrdering Facility: [facility] Address: [address] [place] [address] Performed By: #### 5 7021-8 ####[facility] [id number] [place] [id number] [place] MCHC (RBC) [Mass/Vol] 32.7 g/dL Normal 30.5-36.0 [facility] Comment on above: Order Comment: Speci men Type: BLOOD SPECIMENOrdering Facility: [facility] Address: [address] [place] [address] Performed By: #### 5 7021-8 ####[facility] [id number] [place] [address] [place] MCV (RBC) [Entitic vol] 90.7 fL Normal 80.0-100.0 [facility] Comment on above: Order Comment: Speci men Type: BLOOD SPECIMENOrdering Facility: [facility] Address: [address] [place] [address] Performed By: #### 5 7021-8 ####[facility] [id number] [place] [address] [place] Monocytes (Bld) [#/Vol] 0.73 10*3/uL Normal <0.87 [facility] Comment on above: Order Comment: Speci men Type: BLOOD SPECIMENOrdering Facility: [facility] Address: [address] [place] [address] Performed By: #### 5 7021-8 ####[facility] [id number] [place] [address] [place] Monocytes/100 WBC (Bld) 9.6 % Normal [facility] Comment on above: Order Comment: Speci men Type: BLOOD SPECIMENOrdering Facility: [facility] Address: [address] [place] [address] Performed By: #### 5 7021-8 ####[facility] [id number] [place] [address] [place] Neutrophils (Bld) [#/Vol] 4.56 10*3/uL Normal 1.45-7.50 [facility] Comment on above: Order Comment: Speci men Type: BLOOD SPECIMENOrdering Facility: [facility] Address: [address] [place], [place] [address] Performed By: #### 5 7021-8 ####[facility] [id number] [place] [address] [place] Neutrophils/100 WBC (Bld) 60.2 % Normal [facility] Comment on above: Order Comment: Speci men Type: BLOOD SPECIMENOrdering Facility: [facility] Address: [address] [place] [address] Performed By: #### 5 7021-8 ####[facility] [id number] [place] [address] [place] Nucleated RBC (Bld) [#/Vol] 10*3/uL Normal <0.01 [facility] Comment on above: Order Comment: Speci men Type: BLOOD SPECIMENOrdering Facility: [facility] Address: [address] [place] [address] Performed By: #### 5 7021-8 ####[facility] [id number] [place] [address] [place] Nucleated RBC/100 WBC (Bld) [Ratio] 0.0 /100 WBC Normal [facility] Comment on above: Order Comment: Speci men Type: BLOOD SPECIMENOrdering Facility: [facility] Address: [address] [place] [address] Performed By: #### 5 7021-8 ####[facility] [id number] [place] [address] [place] Platelet mean volume (Bld) [Entitic vol] 11.4 fL Normal 9.0-12.7 [facility] Comment on above: Order Comment: Speci men Type: BLOOD SPECIMENOrdering Facility: [facility] Address: [address] [place] [address] Performed By: #### 5 7021-8 ####[facility] [id number] [address] [address] [place] Platelets (Bld) [#/Vol] 255 10*3/uL Normal 150-400 [facility] Comment on above: Order Comment: Speci men Type: BLOOD SPECIMENOrdering Facility: [facility] Address: [address] [place] [address] Performed By: #### 5 7021-8 ####[facility] [id number] [place] [address] [place] RBC (Bld) [#/Vol] 3.98 10*6/uL Low 4.20-6.00 [facility] Comment on above: Order Comment: Speci men Type: BLOOD SPECIMENOrdering Facility: [facility] Address: [address] [place] [address] Performed By: #### 5 7021-8 ####[facility] [id number] [place] [address] [place] WBC (Bld) [#/Vol] 7.58 10*3/uL Normal 3.70-11.00 [facility] Comment on above: Order Comment: Speci men Type: BLOOD SPECIMENOrdering Facility: [facility] Address: [address] [place] [address] Performed By: #### 5 7021-8 ####[facility] [id number] [address] [place] CNOVon 09-15-2024 CNOV Office Visit (PADMINIWS) JEAN-CLAUDE DOUGLAS ([id number]) 1940 M Date Time Provider Department 09/15/24 2:20 PM [facility] During your visit today, we recorded the following information about you: Pulse Blood pressure Weight 76/minute 128/80 68.5 kg Kb Lackey MD 09/15/2024 2:42 PM Signed - Continue taking your camj-auv-zpcmpan iron supplement as directed. - Complete the blood tests ordered today (CBC, iron level, and ferritin). - Schedule and attend a urology appointment at the [facility] to evaluate the blood in your urine. - Schedule and attend gastroenterology appointments at the [facility] for an EGD and colonoscopy to check for any source of blood loss causing your anemia. - Keep monitoring your blood sugars, especially overnight; if your continuous monitor shows a low reading, verify it with a finger-stick check. - Continue follow-up with Dr. Kemp in endocrinology for diabetes management. - Plan to return in about six months for your Medicare wellness exam. Kb Lackey MD 09/15/2024 5:31 PM Signed Jean-Claude Douglas is an 83-year-old male with a history of DM, presenting for follow-up of anemia, hematuria, and DM management. HPI Anemia: - Recent hospitalization revealed anemia; hemoglobin was 11.8 g/dL on 08/06. - Taking OTC iron supplements. - Denies dizziness, chest pain, or dyspnea. - No melena or hematochezia. - Denies abdominal pain, nausea, or emesis. - No changes in skin tone or pallor noted. Hematuria: - Recent urinalysis showed hematuria and yeast, but no bacterial infection. - Denies dysuria, urinary frequency, or hematuria. - Denies fever or chills. Diabetes Mellitus: - Recent blood glucose reading of 83 mg/dL. - Reports occasional hypoglycemic episodes. - Monitoring blood glucose levels with a fingerstick machine. 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 MEDICATIONS: Current Outpatient Medications Medication Sig nystatin (MYCOSTATIN) cream Apply to affected area two times a day. cyanocobalamin (VITAMIN B-12) 1,000 mcg tab Take 1 tablet by mouth once daily. lisinopril (ZESTRIL) 30 mg tablet Take 1 tablet by mouth once daily. levothyroxine (SYNTHROID) 125 mcg tablet Take 1 tablet by mouth once daily. Take on empty stomach. For Thyroid metFORMIN ER (GLUCOPHAGE XR) 500 mg 24 hr tablet Take 2 tablets by mouth twice daily. blood sugar diagnostic (BLOOD GLUCOSE TEST) test strip Test blood sugar(s) 1 times daily. Dx: Type 2 DM - Uncontrolled E11.65 Insulin: No Lancets lancets Test blood sugar(s) 1 times daily. Dx: Type 2 DM - Uncontrolled E11.65 Insulin: Yes insulin aspart prot/insuln asp (NOVOLOG MIX 70-30 SUBCUTANEOUS) Inject subcutaneously two times a day with meals. Per WC 24 units every morning and 10 units qhs ferrous sulfate 325 mg (65 mg iron) tablet Take 325 mg by mouth. mv,iron,vfn-KN-qsuml ry cmb.24 400 mcg tab Take 1 tablet by mouth once daily. Cholecalciferol, Vitamin D3, 1,000 unit cap Take 1 capsule by mouth once daily. No current facility-administere d medications for this visit. ALLERGIES: ALLERGIES No Known Allergies PAST MEDICAL HISTORY Diagnosis Date B12 deficiency 2010 Elevated blood pressure 2011 Hearing loss Hypertension Hypothyroidism Major depressive disorder, recurrent episode, moderate (HCC) 01/26/2008 Other postablative hypothyroidism Severe major depression, single episode (HCC) 2008 PAST SURGICAL HISTORY Procedure Laterality Date CATARACT EXTRACTION HX Left 10/16/2017 CHOLECYSTECTOMY 2001 Cholecystectomy COLONOSCOPY FLX DX W/COLLJ SPEC WHEN PFRMD 07/07/2015 Colonoscopy EGD ESOPHAGOGASTRODUODEN OSCOPY TRANSORAL DIAGNOSTIC 07/07/2015 EGD LAPAROSCOPY SURG RPR INITIAL INGUINAL HERNIA 12/24/06 RIGHT TONSILLECTOMY PRIMARY/SECONDARY Tonsillectomy FAMILY HISTORY Problem Relation Age of Onset Cancer Mother stomach Colon Cancer Brother other (cirrhosis [Other]) Father None Brother None Brother None Brother None Sister Stroke Brother Social History Tobacco Use Smoking status: Former Current packs/day: 0.00 Average packs/day: 1 pack/day for 25.0 years (25.0 ttl pk-yrs) Types: Cigarettes Start date: 10/12/1955 Quit date: 10/11/1980 Years since quittin.9 Smokeless tobacco: Never Vaping Use Vaping status: Never Used Substance Use Topics Alcohol use: No Drug use: No Reviewed current medications, allergies, past medical history, surgical history, family history and social history today. REVIEW OF SYSTEMS Constitutional: (-) fever, (-) chills Cardiovascular: (-) chest pain Respiratory: (-) shortness of breath Gastrointestinal: (-) abdominal pain, (-) nausea, (-) vomiting Genitourinary: (-) dysuria, (-) urinary frequency, (-) hematuria Neurological: (-) dizziness Endocrine: (+) hypoglycemic episodes HEALTH MAINTENANCE: Review (more content not included)... Normal [facility] Ferritin SerPl-mCncon 2024 Ferritin [Mass/Vol] 162.0 ng/mL Normal 30.3-565.7 [facility] Comment on above: Order Comment: Speci men Type: BLOOD SPECIMENOrdering Facility: [facility] Address: [address] [place] [address] Performed By: #### 5 0190-8, 2276-4, 3016-3, 13218-1 ####[facility] [id number] [place] [id number] [place] Iron and Iron binding capaci ty panel 09-15-2024 Iron [Mass/Vol] 96 ug/dL Normal 41-186 [facility] Comment on above: Order Comment: Speci men Type: BLOOD SPECIMENOrdering Facility: [facility] Address: [address] [place] [address] Performed By: #### 5 0190-8, 2276-4, 3016-3, 27904-7 ####[facility] [id number] [place] [id number] [place] Iron binding capacity [Mass/Vol] 289 ug/dL Normal 232-386 [facility] Comment on above: Order Comment: Speci men Type: BLOOD SPECIMENOrdering Facility: [facility] Address: [address] [place] [address] Performed By: #### 5 0190-8, 2276-4, 3016-3, 49831-6 ####[facility] [id number] [place] [id number] [place] Iron/TIBC [Molar ratio] 33.2 % Normal 15.0-57.0 [facility] Comment on above: Order Comment: Speci men Type: BLOOD SPECIMENOrdering Facility: [facility] Address: [address] [place] [address] Performed By: #### 5 0190-8, 2276-4, 3016-3, 93018-1 ####[facility] [id number] [place] [id number] [place] TSH SerPl-aCncon 09-15-2024 TSH Qn 4.100 m[IU]/L Normal 0.270-4.200 [facility] Comment on above: Order Comment: Speci men Type: BLOOD SPECIMENOrdering Facility: [facility] Address: [address] [place] [address] Performed By: #### 5 0190-8, 2276-4, 3016-3, 41772-2 ####[facility] [id number] [place] [id number] [place] Hemoccult Stl Ql IAon 2024 Lower GI hemoglobin IA Ql (Stl) Negative Normal Negative [facility] Comment on above: Order Comment: Speci men Type: STOOL SPECIMENOrdering Facility: [facility] Address: [address] [place] [address] Performed By: #### 2 9771-3 ####[facility] [id number] [place] [id number] [place] CNPNon 08-09-2024 [facility] JEAN-CLAUDE DOUGLAS ([id number]) 1940 M Date Time Provider Department 08/09/24 KB LACKEY During your visit today, we recorded the following information about you: Kb Lackey MD 08/09/2024 10:18 AM Signed Urine is not showing a uti. Does show blood. ? Slight yeast. Any rash in groin? He is more anemic. His renal function is stable. Sometimes the anemia can be related to his renal function but need to rule out some causes. 1, see urology for blood in urine. 2. See surgery for anemia. Unless he has had more recent scopes than 2016. 3. Make sure still on iron 4. Check ifobt. 5 recheck labs in one month. Salomon Ashby LPN 08/09/2024 11:06 AM Signed Scarlet is not sure how much Valentín is going to want to work up? She will talk to him about below. She knows he is taking the iron. She isn't aware of any rash but knows he is wearing a pad at night due to trouble holding urine. She now wonders if maybe does have some rash there from that? Does know that has used some lotion. She will talk to him about urology. She will start with IFOBT for sure but not sure about scope due to his age? After doing IFOBT may consider. Will recheck lab in 1 month. Kb Lackey MD 08/09/2024 11:52 AM Signed Ok. I called in a cream to use topically as well. Salomon Ashby LPN 08/09/2024 12:14 PM Signed Notified Scarlet. Allergies As of Date: 08/09/2024 (No Known Allergies) Date Reviewed: 08/03/2024 Reviewed by: Kemi Gaona MA - Fully Assessed Reason for Visit: Results [95] Primary Visit Diagnosis:Anemia, unspecified type [D64.9] Other Visit Diagnosis:Microscopi c hematuria [R31.29] Order(s):CONSULT TO UROLOGY [9064] Order #: [id number]: 1 FUTURE CONSULT TO GENERAL SURGERY [2630] Order #: [id number]: 1 FUTURE IMMUNOCHEMICAL FECAL OCCULT BLOOD TEST [SQIFOBT] Order #: [id number]. #:[id number] COMPLETE BLOOD COUNT AND DIFFERENTIAL [SQCBCDIF] Order #: [id number] FUTURE IRON AND TIBC [SQIRON] Order #: [id number] FUTURE FERRITIN [SQFERR] Order #: [id number] FUTURE nystatin (MYCOSTATIN) creamApply to affected area two times a day.Disp: 30 gRfl: 0 Prescriptions as of 08/09/2024 - nystatin (MYCOSTATIN) cream Apply to affected area two times a day. - cyanocobalamin (VITAMIN B-12) 1,000 mcg tab Take 1 tablet by mouth once daily. - lisinopril (ZESTRIL) 30 mg tablet Take 1 tablet by mouth once daily. - levothyroxine (SYNTHROID) 125 mcg tablet Take 1 tablet by mouth once daily. Take on empty stomach. For Thyroid - metFORMIN ER (GLUCOPHAGE XR) 500 mg 24 hr tablet Take 2 tablets by mouth twice daily. - blood sugar diagnostic (BLOOD GLUCOSE TEST) test strip Test blood sugar(s) 1 times daily. Dx: Type 2 DM - Uncontrolled E11.65 Insulin: No - Lancets lancets Test blood sugar(s) 1 times daily. Dx: Type 2 DM - Uncontrolled E11.65 Insulin: Yes - insulin aspart prot/insuln asp (NOVOLOG MIX 70-30 SUBCUTANEOUS) Inject subcutaneously two times a day with meals. Per [facility] 24 units every morning and 10 units qhs - ferrous sulfate 325 mg (65 mg iron) tablet Take 325 mg by mouth. - mv,iron,rgo-JD-qeifm ry cmb.24 400 mcg tab Take 1 tablet by mouth once daily. - Cholecalciferol, Vitamin D3, 1,000 unit cap Take 1 capsule by mouth once daily. Problem List As Of Date 08/09/2024 Noted Resolved Hypothyroidism [E03.9] 06/17/2005 INGUINAL HERNIA, UNILATERAL W/O GANGRENE/OBSTRU*04/200610/06/2009 Major depressive disorder, recurrent, moderate *01/26/2008 12/23/2022 Tremor [R25.1] 12/30/2008 Dementia [F03.90] 03/20/2009 05/05/2017 Vitamin B12 Deficiency [E53.8] 06/30/2009 Hearing Loss [H91.90] 10/06/2009 Vitamin D deficiency [E55.9] 01/23/2010 Essential hypertension, benign [I10] 11/22/2011 Blood in stool [K92.1] 07/07/2015 04/25/2016 Family history of colon cancer [Z80.0] 07/07/2015 Iron deficiency anemia [D50.9] 04/26/2016 Chronic renal insufficiency, stage 3 (moderate)* 9 02/19/2024 Type 2 diabetes mellitus with stage 3a chronic *10/13/2019 Advanced care planning/counseling discussion [Z*06/15/2021 Acute hyperglycemia [R73.9] 12/18/2021 12/23/2022 Dehydration [E86.0] 12/18/2021 12/23/2022 Diabetes mellitus (HCC) [E11.9] 12/18/2021 12/23/2022 Acute kidney injury (HCC) [N17.9] 12/18/2021 12/23/2022 Prescriptions ordered this encounter Disp Refills Start End NYSTATIN 100,000 UNIT/GRAM TOPICAL C* 30 g 0 08/09/2024 Route: TOPICAL Sig: Apply to affected area two times a day. Encounter Status:Closed by SALOMON ASHBY on 08/09/24 Normal [facility] Bacteria Ur Culton Bacteria identified Cx Nom (U) CULTURE, URINE: No growth (<1,000 CFU/ml) Normal [facility] Comment on above: Performed By: #### 6 30-4 ####[facility] [id number] [place] [address] [place] Basic metabolic 2000 panelon 08-06-2024 Anion gap [Moles/Vol] 13 mmol/L Normal 8-15 [facility] Comment on above: Order Comment: Speci men Type: BLOOD SPECIMENOrdering Facility: [facility] Address: [address] [place] [address] Performed By: #### 2 4321-2, 09069-9, 2276-4 ####[facility] [id number] [place] [address] [place] Calcium [Mass/Vol] 9.5 mg/dL Normal 8.5-10.2 [facility] Comment on above: Order Comment: Speci men Type: BLOOD SPECIMENOrdering Facility: [facility] Address: [address] [place] [address] Performed By: #### 2 4321-2, 75219-6, 6-4 ####[facility] [id number] [place] [id number] [place] Chloride [Moles/Vol] 103 mmol/L Normal 98-107 [facility] Comment on above: Order Comment: Speci men Type: BLOOD SPECIMENOrdering Facility: [facility] Address: [address] [place] [address] Performed By: #### 2 4321-2, 94626-7, 6-4 ####[facility] [id number] [place] [address] [place] CO2 [Moles/Vol] 22 mmol/L Normal 22-30 [facility] Comment on above: Order Comment: Speci men Type: BLOOD SPECIMENOrdering Facility: [facility] Address: [address] [place] [address] Performed By: #### 2 4321-2, 07952-0, 2275-4 ####[facility] [id number] [place] [address] [place] Creatinine [Mass/Vol] 1.52 mg/dL High 0.73-1.22 [facility] Comment on above: Order Comment: Speci men Type: BLOOD SPECIMENOrdering Facility: [facility] Address: [address] [place] [address] Performed By: #### 2 4321-2, 37190-4, 6-4 ####[facility] [id number] [place] [id number] [place] Creatinine and Glomerular filtration rate.predicted panel (S/P/Bld) 46 mL/min/1.73m??? Low >=60 [facility] Comment on above: Order Comment: Speci men Type: BLOOD SPECIMENOrdering Facility: [facility] Address: [address] [place] [address] Result Comment: Myriam mated Glomerular Filtration Rate (eGFR) is calculated using the 2020 CKD-EPI creatinine equation. This equation utilizes serum creatinine, sex, and age as parameters. The creatinine assay has traceable calibration to isotope dilution-mass spectrometry. Refer to KDIGO guidelines for clinical interpretation. In patients with unstable renal function, e.g. those with acute kidney injury, the eGFR may not accurately reflect actual GFR. Performed By: #### 2 4321-2, 50937-6, 4 ####[facility] [id number] [address] [address] [place] Glucose [Mass/Vol] 323 mg/dL High 74-99 [facility] Comment on above: Order Comment: Spechenrik mcnally Type: BLOOD SPECIMENOrdering Facility: [facility] Address: [address] [place] [address] Result Comment: The [place] [employer] (ADA) provides guidance for cutoff values for fasting glucose and random glucose. The ADA defines fasting as no caloric intake for at least 8 hours. Fasting plasma glucose results between 100 to 125 mg/dL indicate increased risk for diabetes (prediabetes). Fasting plasma glucose results greater than or equal to 126 mg/dL meet the criteria for diagnosis of diabetes. In the absence of unequivocal hyperglycemia, results should be confirmed by repeat testing. In a patient with classic symptoms of hyperglycemia or hyperglycemic crisis, random plasma glucose results greater than or equal to 200 mg/dL meet the criteria for diagnosis of diabetes. Reference: Standards of Medical Care in Diabetes 2016, [place] [employer]. Diabetes Care. 2016.39(Suppl 1). Performed By: #### 2 4321-2, 06069-7, 2275-07 ####[facility] [id number] [address] [address] [place] Potassium [Moles/Vol] 4.1 mmol/L Normal 3.7-5.1 [facility] Comment on above: Order Comment: Somi men Type: BLOOD SPECIMENOrdering Facility: [facility] Address: [address] [place] [id number] Performed By: #### 2 4321-2, 39286-1, 2275-4 ####[facility] [id number] [address] [address] [place] Sodium [Moles/Vol] 138 mmol/L Normal 136-144 [facility] Comment on above: Order Comment: Speci men Type: BLOOD SPECIMENOrdering Facility: [facility] Address: [address] [place] [address] Performed By: #### 2 4321-2, 96164-4, 2275-07 ####[facility] [id number] [place] [id number] [place] Urea nitrogen [Mass/Vol] 28 mg/dL High 9-24 [facility] Comment on above: Order Comment: Speci men Type: BLOOD SPECIMENOrdering Facility: [facility] Address: [address] [place] [address] Performed By: #### 2 4321-2, 96387-1, 2275-07 ####[facility] [id number] [place] [id number] [place] CBC W Auto Differential pane l (Bld)on 08-06-2024 Basophils (Bld) [#/Vol] 0.04 10*3/uL Normal <0.11 [facility] Comment on above: Order Comment: Speci men Type: BLOOD SPECIMENOrdering Facility: [facility] Address: [address] [place] [address] Performed By: #### 5 7021-8 ####[facility] [id number] [address] [address] [place] Basophils/100 WBC (Bld) 0.5 % Normal [facility] Comment on above: Order Comment: Speci men Type: BLOOD SPECIMENOrdering Facility: [facility] Address: [address] [place] [address] Performed By: #### 5 7021-8 ####[facility] [id number] [place] [address] [place] Differential cell count method Nom (Bld) Auto Normal [facility] Comment on above: Order Comment: Speci men Type: BLOOD SPECIMENOrdering Facility: [facility] Address: [address] [place] [address] Performed By: #### 5 7021-8 ####[facility] [id number] [place] [address] [place] Eosinophils (Bld) [#/Vol] 0.10 10*3/uL Normal <0.46 [facility] Comment on above: Order Comment: Speci men Type: BLOOD SPECIMENOrdering Facility: [facility] Address: [address] [place] [address] Performed By: #### 5 7021-8 ####[facility] [id number] [place] [address] [place] Eosinophils/100 WBC (Bld) 1.2 % Normal [facility] Comment on above: Order Comment: Speci men Type: BLOOD SPECIMENOrdering Facility: [facility] Address: [address] [place] [address] Performed By: #### 5 7021-8 ####[facility] [id number] [place] [address] [place] Erythrocyte distribution width (RBC) [Ratio] 13.1 % Normal 11.5-15.0 [facility] Comment on above: Order Comment: Speci men Type: BLOOD SPECIMENOrdering Facility: [facility] Address: [address] [place] [address] Performed By: #### 5 7021-8 ####[facility] [id number] [place] [address] [place] Hematocrit (Bld) [Volume fraction] 37.4 % Low 39.0-51.0 [facility] Comment on above: Order Comment: Speci men Type: BLOOD SPECIMENOrdering Facility: [facility] Address: [address] [place] [address] Performed By: #### 5 7021-8 ####[facility] [id number] [place] [address] [place] Hemoglobin (Bld) [Mass/Vol] 11.8 g/dL Low 13.0-17.0 [facility] Comment on above: Order Comment: Speci men Type: BLOOD SPECIMENOrdering Facility: [facility] Address: [address] [place] [address] Performed By: #### 5 7021-8 ####[facility] [id number] [place] [address] [place] Immature granulocytes (Bld) [#/Vol] 0.04 10*3/uL Normal <0.10 [facility] Comment on above: Order Comment: Speci men Type: BLOOD SPECIMENOrdering Facility: [facility] Address: [address] [place] [address] Performed By: #### 5 7021-8 ####[facility] [id number] [place] [address] [place] Immature granulocytes/100 WBC (Bld) 0.5 % Normal [facility] Comment on above: Order Comment: Speci men Type: BLOOD SPECIMENOrdering Facility: [facility] Address: [address] [place] [address] Performed By: #### 5 7021-8 ####[facility] [id number] [place] [address] [place] Lymphocytes (Bld) [#/Vol] 1.61 10*3/uL Normal 1.00-4.00 [facility] Comment on above: Order Comment: Speci men Type: BLOOD SPECIMENOrdering Facility: [facility] Address: [address] [place] [address] Performed By: #### 5 7021-8 ####[facility] [id number] [place] [address] [place] Lymphocytes/100 WBC (Bld) 19.2 % Normal [facility] Comment on above: Order Comment: Speci men Type: BLOOD SPECIMENOrdering Facility: [facility] Address: [address] [place] [address] Performed By: #### 5 7021-8 ####[facility] [id number] [place] [address] [place] MCH (RBC) [Entitic mass] 29.0 pg Normal 26.0-34.0 [facility] Comment on above: Order Comment: Speci men Type: BLOOD SPECIMENOrdering Facility: [facility] Address: [address] [place] [address] Performed By: #### 5 7021-8 ####[facility] [id number] [place] [address] [place] MCHC (RBC) [Mass/Vol] 31.6 g/dL Normal 30.5-36.0 [facility] Comment on above: Order Comment: Speci men Type: BLOOD SPECIMENOrdering Facility: [facility] Address: [address] [place] [address] Performed By: #### 5 7021-8 ####[facility] [id number] [place] [address] [place] MCV (RBC) [Entitic vol] 91.9 fL Normal 80.0-100.0 C [facility] Comment on above: Order Comment: Speci men Type: BLOOD SPECIMENOrdering Facility: [facility] Address: [address] [place] [address] Performed By: #### 5 7021-8 ####[facility] [id number] [place] [address] [place] Monocytes (Bld) [#/Vol] 0.53 10*3/uL Normal <0.87 [facility] Comment on above: Order Comment: Speci men Type: BLOOD SPECIMENOrdering Facility: [facility] Address: [address] [place] [address] Performed By: #### 5 7021-8 ####[facility] [id number] [address] [address] [place] Monocytes/100 WBC (Bld) 6.3 % Normal [facility] Comment on above: Order Comment: Speci men Type: BLOOD SPECIMENOrdering Facility: [facility] Address: [address] [place] [address] Performed By: #### 5 7021-8 ####[facility] [id number] [place] [address] [place] Neutrophils (Bld) [#/Vol] 6.05 10*3/uL Normal 1.45-7.50 [facility] Comment on above: Order Comment: Speci men Type: BLOOD SPECIMENOrdering Facility: [facility] Address: [address] [place] [address] Performed By: #### 5 7021-8 ####[facility] [id number] [place] [address] [place] Neutrophils/100 WBC (Bld) 72.3 % Normal [facility] Comment on above: Order Comment: Speci men Type: BLOOD SPECIMENOrdering Facility: [facility] Address: [address] [place] [address] Performed By: #### 5 7021-8 ####[facility] [id number] [place] [id number] [place] Nucleated RBC (Bld) [#/Vol] 10*3/uL Normal <0.01 [facility] Comment on above: Order Comment: Speci men Type: BLOOD SPECIMENOrdering Facility: [facility] Address: [address] [place] [address] Performed By: #### 5 7021-8 ####[facility] [id number] [place] [address] [place] Nucleated RBC/100 WBC (Bld) [Ratio] 0.0 /100 WBC Normal [facility] Comment on above: Order Comment: Speci men Type: BLOOD SPECIMENOrdering Facility: [facility] Address: [address] [place] [address] Performed By: #### 5 7021-8 ####[facility] [id number] [place] [address] [place] Platelet mean volume (Bld) [Entitic vol] 11.4 fL Normal 9.0-12.7 [facility] Comment on above: Order Comment: Speci men Type: BLOOD SPECIMENOrdering Facility: [facility] Address: [address] [place] [address] Performed By: #### 5 7021-8 ####[facility] [id number] [place] [address] [place] Platelets (Bld) [#/Vol] 343 10*3/uL Normal 150-400 [facility] Comment on above: Order Comment: Speci men Type: BLOOD SPECIMENOrdering Facility: [facility] Address: [address] [place] [address] Performed By: #### 5 7021-8 ####[facility] [id number] [place] [address] [place] RBC (Bld) [#/Vol] 4.07 10*6/uL Low 4.20-6.00 [facility] Comment on above: Order Comment: Speci men Type: BLOOD SPECIMENOrdering Facility: [facility] Address: [address] [place] [address] Performed By: #### 5 7021-8 ####[facility] [id number] [place] [address] [place] WBC (Bld) [#/Vol] 8.37 10*3/uL Normal 3.70-11.00 [facility] Comment on above: Order Comment: Speci men Type: BLOOD SPECIMENOrdering Facility: [facility] Address: [address] [place] [address] Performed By: #### 5 7021-8 ####[facility] [id number] [address] Ferritin [facility] 2024 Ferritin [Mass/Vol] 139.0 ng/mL Normal 30.3-565.7 [facility] Comment on above: Order Comment: Speci men Type: BLOOD SPECIMENOrdering Facility: [facility] Address: [address] [place] [address] Performed By: #### 2 4321-2, 27569-8, 2276-4 ####[facility] [id number] [place] [address] [place] Folate SerPl-ncon 08-07-19 25 Folate [Mass/Vol] 8.8 ng/mL Normal >4.7 [facility] Comment on above: Order Comment: Speci men Type: BLOOD SPECIMENOrdering Facility: [facility] Address: [address] [place] [address] Performed By: #### 2 284-8, 2132-9 ####[facility] [id number] [place] [address] [place] Iron and Iron binding capaci panelon 08-06-2024 Iron [Mass/Vol] 93 ug/dL Normal 41-186 [facility] Comment on above: Order Comment: Speci men Type: BLOOD SPECIMENOrdering Facility: [facility] Address: [address] [place] [address] Performed By: #### 2 4321-2, 16404-1, 2276-4 ####[facility] [id number] [place] [address] [place] Iron binding capacity [Mass/Vol] 278 ug/dL Normal 232-386 [facility] Comment on above: Order Comment: Speci men Type: BLOOD SPECIMENOrdering Facility: [facility] Address: [address] [place] [address] Performed By: #### 2 4321-2, 64059-7, 6-4 ####[facility] [id number] [address] [place] Iron/TIBC [Molar ratio] 33.5 % Normal 15.0-57.0 [facility] Comment on above: Order Comment: Speci men Type: BLOOD SPECIMENOrdering Facility: [facility] Address: [address] [place] [address] Performed By: #### 2 4321-2, 28859-4, 2275-4 ####[facility] [id number] [address] [place] Urinalysis complete panel (U )on 08-06-2024 Bacteria LM.HPF (Urine sed) [#/Area] Negative Normal Negative [facility] Comment on above: Order Comment: Speci men Type: URINE SPECIMENOrdering Facility: [facility] Address: [address] [place] [address] Performed By: #### 2 4356-8 ####[facility] [id number] [place] [address] [place] Bilirubin Ql (U) Negative Normal Negative [facility] Comment on above: Order Comment: Speci men Type: URINE SPECIMENOrdering Facility: [facility] Address: [address] [place] [address] Performed By: #### 2 4356-8 ####[facility] [id number] [place] [id number] [place] Clarity (Unsp spec) Clear Normal Clear [facility] Comment on above: Order Comment: Speci men Type: URINE SPECIMENOrdering Facility: [facility] Address: [address] [place] [address] Performed By: #### 2 4356-8 ####[facility] [id number] [place] [address] [place] Color (U) Yellow Normal Yellow [facility] Comment on above: Order Comment: Speci men Type: URINE SPECIMENOrdering Facility: [facility] Address: [address] [place] [address] Performed By: #### 2 4356-8 ####[facility] [id number] [place] [address] [place] Epithelial cells LM.HPF (Urine sed) [#/Area] None Seen Normal [facility] Comment on above: Order Comment: Speci men Type: URINE SPECIMENOrdering Facility: [facility] Address: [address] [place] [address] Performed By: #### 2 4356-8 ####[facility] [id number] [place] [address] [place] Glucose Test strip (U) [Mass/Vol] 3+ Abnormal Negative [facility] Comment on above: Order Comment: Speci men Type: URINE SPECIMENOrdering Facility: [facility] Address: [address] [place] [address] Performed By: #### 2 4356-8 ####[facility] [id number] [place] [address] [place] Hemoglobin Ql (U) 2+ Abnormal Negative [facility] Comment on above: Order Comment: Speci men Type: URINE SPECIMENOrdering Facility: [facility] Address: [address] [place] [address] Performed By: #### 2 4356-8 ####[facility] [id number] [place] [id number] [place] Hyaline casts (Urine sed) [#/Area] 1-3 /LPF Abnormal 0 /LPF [facility] Comment on above: Order Comment: Speci men Type: URINE SPECIMENOrdering Facility: [facility] Address: [address] [place] [address] Performed By: #### 2 4356-8 ####[facility] [id number] [facility] [address] [place] [address] [place] Ketones Ql (U) Trace Abnormal Negative [facility] Comment on above: Order Comment: Speci men Type: URINE SPECIMENOrdering Facility: [facility] Address: [address] [place] [address] Performed By: #### 2 4356-8 ####[facility] [id number] [facility] [address] [place] [address] [place] Leukocyte esterase Test strip Ql (U) Negative Normal Negative [facility] Comment on above: Order Comment: Speci men Type: URINE SPECIMENOrdering Facility: [facility] Address: [address] [place] [address] Performed By: #### 2 4356-8 ####[facility] [id number] [facility] [address] [place] [address] [place] Nitrite Ql (U) Negative Normal Negative [facility] Comment on above: Order Comment: Speci men Type: URINE SPECIMENOrdering Facility: [facility] Address: [address] [place] [address] Performed By: #### 2 4356-8 ####[facility] [id number] [facility] [address] [place] [address] [place] pH (U) 5.5 [pH] Normal <8.5 [facility] Comment on above: Order Comment: Speci men Type: URINE SPECIMENOrdering Facility: [facility] Address: [address] [place] [address] Performed By: #### 2 4356-8 ####[facility] [id number] [place] [address] [place] Protein (U) [Mass/Vol] Negative Normal Negative [facility] Comment on above: Order Comment: Speci men Type: URINE SPECIMENOrdering Facility: [facility] Address: [address] [place] [address] Performed By: #### 2 4356-8 ####[facility] LABIA [id number] [place] [address] [place] RBC LM.HPF (Urine sed) [#/Area] 6-10 /HPF Abnormal 0-2 /HPF [facility] Comment on above: Order Comment: Speci men Type: URINE SPECIMENOrdering Facility: [facility] Address: [address] [place] [address] Performed By: #### 2 4356-8 ####[facility] [id number] [place] [address] [place] Specific gravity (U) [Rel density] 1.025 Normal 1.005-1.030 [facility] Comment on above: Order Comment: Speci men Type: URINE SPECIMENOrdering Facility: [facility] Address: [address] [place] [address] Performed By: #### 2 4356-8 ####[facility]IA [id number] [address] [place] Urobilinogen Ql (U) 0.2 EU/dL Normal 0.2-1.0 EU/dL [facility] Comment on above: Order Comment: Speci men Type: URINE SPECIMENOrdering Facility: [facility] Address: [address] [place] [address] Performed By: #### 2 4356-8 ####[facility] [id number] [place] [address] [place] WBC LM.HPF (Urine sed) [#/Area] 0-5 /HPF Normal 0-5 /HPF [facility] Comment on above: Order Comment: Speci men Type: URINE SPECIMENOrdering Facility: [facility] Address: [address] [place] [address] Performed By: #### 2 4356-8 ####[facility] [id number] [place] [address] [place] Yeast.budding LM.HPF (Urine sed) [#/Area] Present Abnormal None Seen [facility] Comment on above: Order Comment: Speci men Type: URINE SPECIMENOrdering Facility: [facility] Address: [address] [place] [address] Performed By: #### 2 4356-8 ####[facility] [id number] [place] [address] [place] Vit B12 SerPl-ncon 05-02-2 025 Cobalamin (Vitamin B12) [Mass/Vol] 876 pg/mL Normal 232-1245 [facility] Comment on above: Order Comment: Speci men Type: BLOOD SPECIMENOrdering Facility: [facility] Address: [address] [place] [address] Performed By: #### 2 284-8, 2132-9 ####[facility] [id number] [address] [place] CNOVon 08-03-2024 CNOV Office Visit (FAMPWS) JEAN-CLAUDE DOUGLAS ([id number]) 1940 Bet[place] Date Time Provider Department 08/03/24 10:00 AM KB LACKEY During your visit today, we recorded the following information about you: Pulse Blood pressure Weight Height 68/minute 113/63 68.5 kg 1.778 m Kb Lackey MD 08/03/2024 10:24 AM Signed Patient presents with: Hospital F/U HPI: Patient presents today for office visit for HOSPITAL/ER FOLLOW UP: Reason for visit: low blood sugar levels and increased confusion. Which facility: [facility] Date of visit: 07/26/24-07/28/24 Diagnosis: Acute Cystitis with hematuria Testing done: workup included UA and blood work. Treatment given: UA indicated cystitis, creatinine was elevated. BS was 179. BS were monitored and insulin was adjusted. Given oral abx. Completed today. Glimepiride d/c Current symptoms: None No culture apparently was taken before beginning antibiotics. Sugars are usually managed by bernarda, Dr Kemp. He is still having occasional hypoglycemic spells however he is using a cgm. Suggested he double check with a fingerstick. Only had one symptomatic. I suggested he might be having some falsely low sugars. He is then treating by eating. He sees endo today. No hx of uti issues. Feels fine now. He has finished his last antibiotic today. No fever or chills. No dysuria or hematuria. No urgency. No nausea or vomiting. No cough or congestion. No chest pain or shortness of breath. He was mildly anemic and had a mildly elevated. He never came back in for labs that were to be rechecked after his last ov. MEDICATIONS: Current Outpatient Medications Medication Sig cyanocobalamin (VITAMIN B-12) 1,000 mcg tab Take 1 tablet by mouth once daily. lisinopril (ZESTRIL) 30 mg tablet Take 1 tablet by mouth once daily. levothyroxine (SYNTHROID) 125 mcg tablet Take 1 tablet by mouth once daily. Take on empty stomach. For Thyroid metFORMIN ER (GLUCOPHAGE XR) 500 mg 24 hr tablet Take 2 tablets by mouth twice daily. blood sugar diagnostic (BLOOD GLUCOSE TEST) test strip Test blood sugar(s) 1 times daily. Dx: Type 2 DM - Uncontrolled E11.65 Insulin: No Lancets lancets Test blood sugar(s) 1 times daily. Dx: Type 2 DM - Uncontrolled E11.65 Insulin: Yes insulin aspart prot/insuln asp (NOVOLOG MIX 70-30 SUBCUTANEOUS) Inject subcutaneously two times a day with meals. Per [facility] 24 units every morning and 10 units qhs ferrous sulfate 325 mg (65 mg iron) tablet Take 325 mg by mouth. mv,iron,ybq-RE-oxhow ry cmb.24 400 mcg tab Take 1 tablet by mouth once daily. Cholecalciferol, Vitamin D3, 1,000 unit cap Take 1 capsule by mouth once daily. glimepiride (AMARYL) 2 mg tablet Take 2 mg by mouth twice daily with meals. Updated per endo note (Patient not taking: Reported on 08/03/2024) No current facility-administere d medications for this visit. ALLERGIES: ALLERGIES No Known Allergies PAST MEDICAL HISTORY Diagnosis Date B12 deficiency 2010 Elevated blood pressure 2011 Hearing loss Hypertension Hypothyroidism Major depressive disorder, recurrent episode, moderate (HCC) 01/26/2008 Other postablative hypothyroidism Severe major depression, single episode (HCC) 2008 PAST SURGICAL HISTORY Procedure Laterality Date CATARACT EXTRACTION HX Left 10/16/2017 CHOLECYSTECTOMY 2000 Cholecystectomy COLONOSCOPY FLX DX W/COLLJ SPEC WHEN PFRMD 07/07/2015 Colonoscopy EGD ESOPHAGOGASTRODUODEN OSCOPY TRANSORAL DIAGNOSTIC 07/07/2015 EGD LAPAROSCOPY SURG RPR INITIAL INGUINAL HERNIA 12/24/06 RIGHT TONSILLECTOMY PRIMARY/SECONDARY Tonsillectomy FAMILY HISTORY Problem Relation Age of Onset Cancer Mother stomach Colon Cancer Brother other (cirrhosis [Other]) Father None Brother None Brother None Brother None Sister Stroke Brother Social History Tobacco Use Smoking status: Former Current packs/day: 0.00 Average packs/day: 1 pack/day for 25.0 years (25.0 ttl pk-yrs) Types: Cigarettes Start date: 10/12/1955 Quit date: 10/11/1980 Years since quittin.8 Smokeless tobacco: Never Vaping Use Vaping status: Never Used Substance Use Topics Alcohol use: No Drug use: No Reviewed current medications, allergies, past medical history, surgical history, family history and social history today. REVIEW OF SYSTEMS No bloody or black stools. No diarrhea or constipation. All other reviewed and negative other than HPI. VITALS: BP 113/63 Pulse 68 Ht 177.8 cm (5' 10) Wt 68.5 kg (151 lb) BMI 21.67 kg/m? Last 4 Encounter Wt Readings: Date: Wt: 08/03/2024 68.5 kg (151 lb) 01/28/2024 72.6 kg (160 lb 0.9 oz) 07/26/2023 70.3 kg (155 lb) 12/23/2022 69.9 kg (154 lb) PHYSICAL EXAMINATION: General appearance: Well appearing, alert, in no acute distress, well-hydrated, well nourished. Skin: Skin color, texture, turgor normal, no suspicious rashes or lesions He (more content not included)... Normal [facility] Endocrinology Visit Reporton 08-03-2024 Endocrinology Visit Report [facility] [address] [place] [address] OFFICE VISIT Date of Service: 08/03/24 MR#: [id number] Acct: [id number] Name: JEAN-CLAUDE DOUGLAS Rep #: [id number] : 1940 Provider: Betsey Garcia Age/Sex: 83/M Location: [facility] [place] Status: Signed Intake Vital Signs 06/22/24 11:23 08/03/24 13:27 Height 5 ft 10 in 5 ft 10 in Weight: 151 lb BMI 21.7 BP 109/68 Blood Pressure Location Rt brachial Position Sitting Pulse 59 L Pulse Source Monitor Pulse Oximetry (%) 96 Oxygen Delivery Method room air Intake Visit Reasons: 6 wk FU Chief Complaint: Diabetes Is patient in pain?: No Allergies No Known Allergies Allergy (Verified 08/03/24 13:29) Medications ???Medication ???Instructions ???Recorded ???Confirmed ???Type ferrous sulfate 325 mg (65 mg 325 mg PO DAILY anemia 06/25/20 History iron) tablet lancets 30 gauge and blood glucose ##1 06/27/20 08/03/24 Rx strips combo pack cholecalciferol (vitamin D3) 25 25 mcg PO DAILY vitamin 07/18/20 0 08/03/24 History mcg (1,000 unit) capsule metformin 500 mg tablet,extended 1,000 mg (2 x 500 mg) PO BID 11/2408/03/24 Rx release 24 hr diabetes #360 tabs pen needle, diabetic, safety 30 #100 ea 01/05/24 08/03/24 Rx gauge x 1/3 cyanocobalamin (vitamin B-12) 1,000 mcg PO DAILY 07/26/24 History 1,000 mcg tablet levothyroxine 125 mcg tablet 125 mcg PO DAILY 07/26/24 08/03/24 History lisinopril 30 mg tablet 30 mg PO DAILY 07/26/24 08/03/24 H istory cephalexin 500 mg tablet 500 mg PO BID #10 tabs 07/28/24 Rx insulin NPH-regular 70-30 U-100 See Rx Instructions subcut BID #1 07/28/24 08/03/24 Rx insulin 100 unit/mL subcutaneous mL pen (Novolin 70-30 FlexPen U-100 Insulin) Have you fallen in the past year?: No PFSH Medical History Acute metabolic encephalopathy Adverse drug reaction Hypoglycemia associated with type 2 diabetes mellitus Acute cystitis with hematuria CHANTALE (acute kidney injury) Dementia Benign essential hypertension Hypothyroidism (acquired) Diabetes Vision problem Thyroid disease Hearing problem Cataract gallbladder Hernia Hypertension Hypothyroidism Diabetes mellitus Surgical History History of cholecystectomy Family History Other Cancer Social History Smoking Status: Former smoker alcohol intake: current alcohol intake frequency: 0-2 drinks per day substance use type: does not use what type of physical activity do you participate in: walking frequency: daily HPI HPI Chief Complaint: Diabetes Details: JEAN-CLAUDE DOUGLAS, is a 83 M who presents to the office today for follow up. A1C is 11.7% in May GMI is 10.6% He was in the ER for hypoglycemia. He has memory loss, mild cognitive impairment. He is able to tell me his insulin doses are 24 at breakfast and 10 units at supper. His lows are in the afternoon when he is busy. Fasting sugars are high. His diet is poor. He eats cookies and snacks. He sometimes gets up in the middle of the night to eat. His is trying to help, but he is in charge of his diabetes. ROS Const Constitutional: No fatigue or weight change ENT ENT: Positive for abnormal hearing; No dizziness/vertigo Cardio Cardiology: No chest pain at rest, chest pain with exertion, shortness of breath or palpitations Musc Musculoskeletal: No abnormal gait Neuro Neurology: Positive for abnormal hearing and memory loss; No abnormal gait Psych Psychiatric: Positive for memory loss Skin Skin: No wounds Endo Endocrine: No fatigue or weight change Exam Const General: cooperative, healthy appearing, comfortable, no acute distress, well developed and not cushingoid Nutritional Appearance: thin Orientation: alert, awake and oriented x3 HENMT Head: normal to inspection Ears: hearing grossly normal bilaterally Nose: external nose normal Mouth: oral mucosae normal Eyes General: appearance normal, both eyes and all related structures Alignment and Position: alignment normal Periorbital: periorbital findings normal Eyelids: eyelids normal Conjunctivae: conjunctivae normal Neck Neck: normal visual inspection Neck mass: No Chest Chest palpation inspection: normal inspection of the chest Resp Effort Inspection: normal respiratory effort, able to speak in complete sentences, symmetric chest movement, no audible wheezes and no cough Cardio Rate: regular rate Rhythm: regular rhythm Skin General: no rashes or lesions noted Neuro (more content not included)... Normal [facility] Anion gap in Serum or Plasma Ordered By: Dennys Buenrostro on 07-28-2024 Anion gap [Moles/Vol] 15 mmol/L 5-15 [facility] BUN/creatinine ratioOrdered By: Dennys Buenrostro on 07-28-2024 Urea nitrogen/Creatinine [Mass ratio] 23.0 mg/mg High - [facility] Basic Metabolic Profile (BMP )on 07-28-2024 BUN/CRE 23.0 RATIO High 01-24 [facility] Comment on above: Performed By: #### L 501.2300, L500.2500 #### [facility] [address] [facility] [address] Calcium [Mass/Vol] 8.9 mg/dL Normal 7.6-11.0 [facility] Comment on above: Performed By: #### L 501.2300, L500.2500 #### [facility] [address] [facility] [address] Chloride [Moles/Vol] 106 mmol/L Normal 98-108 [facility] Comment on above: Performed By: #### L 501.2300, L500.2500 #### [facility] [address] [place], [address] CO2 [Moles/Vol] 19.0 mmol/L Low 21.0-32.0 [facility] Comment on above: Performed By: #### L 501.2300, L500.2500 #### [facility] [address] [place], [address] Creatinine [Mass/Vol] 1.34 mg/dL High 0.70-1.20 [facility] Comment on above: Performed By: #### L 501.2300, L500.2500 #### [facility] [address] [place], [address] ECRCL 41.40 ml/min Low 50-250 [facility] Comment on above: Performed By: #### L 501.2300, L500.2500 #### [facility] [address] [place], [address] GAP 15 Normal 5-15 [facility] Comment on above: Performed By: #### L 501.2300, L500.2500 #### [facility] [address] [place], [address] GFR/1.73 sq M.predicted among non-blacks MDRD (S/P/Bld) [Vol rate/Area] 53 mL/min/{1.73_m2} Low >60 [facility] Comment on above: Result Comment: mL/m in/1.73m2 CKD-EPI Creatinine Equation (2020) Performed By: #### L 501.2300, L500.2500 #### [facility] [address] [place], [address] Glucose [Mass/Vol] 159 mg/dL High 70-99 [facility] Comment on above: Performed By: #### L 501.2300, L500.2500 #### [facility] [address] [place], [address] Potassium [Moles/Vol] 3.9 mmol/L Normal 3.3-5.1 [facility] Comment on above: Performed By: #### L 501.2300, L500.2500 #### [facility] [address] [place], [address] Sodium [Moles/Vol] 140 mmol/L Normal 133-145 [facility] Comment on above: Performed By: #### L 501.2300, L500.2500 #### [facility] [address] [place], [address] Urea nitrogen [Mass/Vol] 31 mg/dL High 4-19 [facility] Comment on above: Performed By: #### L 501.2300, L500.2500 #### [facility] [address] [place], [address] Bedside Glucoseon 07-28-2024 FINGERSTICK GLU 364 mg/dL High 74-106 [facility] Comment on above: Result Comment: GENO GEMENT OF PATIENT CARE PER NURSING PROTOCOL Performed By: #### L 500.4050, L501.2300, L100.0100 #### [facility] [address] [place], [address] FINGERSTICK GLU 147 mg/dL High 74-106 [facility] Comment on above: Result Comment: GENO GEMENT OF PATIENT CARE PER NURSING PROTOCOL Performed By: #### L 500.4050, L501.2300, L100.0100 #### [facility] [address] [place], [address] Carbon dioxide, total [Moles /volume] in Central venous bloodOrdered By: Dennys Buenrostro on 07-28-2024 CO2 [Moles/Vol] 19.0 mmol/L Low 21.0-32.0 [facility] Chloride assayOrdered By: Curt Buenrostro on 07-28-2024 Chloride [Moles/Vol] 106 mmol/L 98-108 [facility] Discharge Instructionon 07-07 Discharge Instruction [facility] Medical Records Department [address] [place] [address] Instructions for Home/Discharge Instructions 07/28/24 1346 MR#: [id number] Acct: [id number] Name: JEAN-CLAUDE DOUGLAS Rep #: [id number] : 1940 83 From: Dennys Buenrostro DO PCP: Dr. Kb Lackey MD Status:ADM IN Discharge Instructions Diet Discharge Diet: 1800 Calorie Control Diet DC O2, CPAP, BIPAP needs Home O2 Discharge instructions: No Dressing / Incision Discharge Activity: Return to Normal Activity Weight Bearing Status: Full weight bearing Follow Up Care Test Results: Test results from this visit will be discussed in further detail at your follow-up appointment, if applicable. Discharge Plan Admission Admit Date/Time: 07/26/24 20:05 Primary Reason for Your Visit: cystitis Attending Provider: Dennys Buenrostro Primary Care Provider: Kb Lackey Consulting Providers: Michael House Discharge Orders/Prescriptions Prescriptions: New cephalexin 500 mg tablet 500 mg PO BID Qty: 10 0RF Rx Instructions: START 07/29/24 Continued cholecalciferol (vitamin D3) 25 mcg (1,000 unit) capsule 25 mcg PO DAILY metformin 500 mg tablet extended release 24 hr 1,000 mg PO BID Qty: 360 3RF ferrous sulfate 325 MG tablet 325 mg PO DAILY (DME) lancets-blood glucose strips 1 EACH combo pack 1 each MC BID Qty: 1 1RF cyanocobalamin (vitamin B-12) 1,000 mcg tablet 1,000 mcg PO DAILY levothyroxine 125 mcg tablet 125 mcg PO DAILY lisinopril 30 mg tablet 30 mg PO DAILY (DME) pen needle, diabetic, safety 30 gauge x 1/3 needle 1 ea MISCELL. UD Qty: 100 6RF Rx Instructions: 3x/day Changed Novolin 70-30 FlexPen U-100 100 unit/mL (70-30) insulin pen See Rx Instructions subcut BID Qty: 1 0RF Rx Instructions: 24 UNITS EVERY MORNING, 10 UNITS Discontinued glimepiride 2 mg tablet 2 mg PO BID Qty: 180 1RF Referrals / Follow Up: Salvador Kemp MD [Med Staff - Courtesy Staff] - See Referral Note ( SCHEDULED) Kb Lackey MD [Primary Care Provider] - Disposition Disposition (needs filled in before D/C Order can be placed): Home, Self Care 07/28/24 1406 Dennys Buenrostro DO CC: Dr. Michael House DO; Dr. bK Lackey MD Signed Normal [facility] Glomerular filtration rate ( GFR) estimation/1.73 sq m using serum, plasma, or whole bOrdered By: Dennys Buenrostro on 07-28-2024 GFR/1.73 sq M.predicted among non-blacks MDRD (S/P/Bld) [Vol rate/Area] 53 mL/min/{1.73_m2} Low >60 [facility] Comment on above: mL/min/1.73m2 CKD-EP I Creatinine Equation (2020) [facility] deOrdered By: Dennys Buenrostro on 07-28-2024 Glucose [Mass/Vol] 364 mg/dL High 74-106 [facility] Comment on above: MANAGEMENT OF PATIEN T CARE PER NURSING PROTOCOL Phosphoruson 07-28-2024 Phosphate [Mass/Vol] 2.8 mg/dL Normal 2.7-4.5 [facility] Comment on above: Performed By: #### L 501.2300, L500.2500 #### [facility] [address] [place], [place] [address] [place], [place], [address] Potassium measurement (mass/ volume)Ordered By: Dennys Buenrostro on 07-28-2024 Potassium (Unsp spec) [Mass/Vol] 3.9 mmol/L 3.3-5.1 [facility] Serum creatinine measurement (mass/volume)Ordered By: Dennys Buenrostro on 07-28-2024 Creatinine [Mass/Vol] 1.34 mg/dL High 0.70-1.20 [facility] Serum glucose measurement (m ass/volume)Ordered By: Dennys Buenrostro on 07-28-2024 Glucose [Mass/Vol] 159 mg/dL High 70-99 [facility] Serum or plasma calcium lio urement (mass/volume)Ordered By: Dennys Buenrostro on 07-28-2024 Calcium [Mass/Vol] 8.9 mg/dL 7.6-11.0 [facility] Serum or plasma urea nitroge n measurement (mass/volume)Ordered By: Dennys Buenrostro on 07-28-2024 Urea nitrogen [Mass/Vol] 31 mg/dL High 4-19 [facility] Sodium levelOrdered By: Dennys Buenrostro on 07-28-2024 Sodium [Moles/Vol] 140 mmol/L 133-145 [facility] Absolute lymphocyte countOrd ered By: Michael Mercer on 07-27-2024 Lymphocytes Auto (Unsp spec) [#/Vol] 1.66 10*3/uL 0.83-4.51 [facility] Absolute neutrophil countOrd ered By: Michael Mercer on 07-27-2024 Neutrophils (Bld) [#/Vol] 5.9 10*3/uL 2.0-7.7 [facility] Automated lymphocyte count a s percentage of total leukocytesOrdered By: Michael Mercer on 07-27-2024 Lymphocytes/100 WBC Auto (Unsp spec) 19.1 % 19-41 [facility] Basophil percentageOrdered B y: Michael Mercer on 07-27-2024 Basophils/100 WBC (Bld) 0.3 % 0-1 [facility] Bedside Glucoseon 07-27-2024 FINGERSTICK GLU 106 mg/dL Normal 74-106 [facility] Comment on above: Result Comment: GENO GEMENT OF PATIENT CARE PER NURSING PROTOCOL Performed By: #### L 500.4050, L501.2300, L100.0100 #### [facility] [address] [facility] [address] FINGERSTICK GLU 325 mg/dL High [address] [place] [address] Comment on above: Result Comment: GENO GEMENT OF PATIENT CARE PER NURSING PROTOCOL Performed By: #### L 501.2300, L500.2500 #### [facility] [address] [facility] [address] FINGERSTICK GLU 404 mg/dL High [address] Comment on above: Result Comment: GENO GEMENT OF PATIENT CARE PER NURSING PROTOCOL Performed By: #### L 501.2300, L500.2500 #### [facility] [address] [place], [address] FINGERSTICK GLU 432 mg/dL High [address] [place] [address] Comment on above: Result Comment: GENO GEMENT OF PATIENT CARE PER NURSING PROTOCOL Performed By: #### L 501.2300, L500.2500 #### [facility] [address] [place], [address] FINGERSTICK GLU 455 mg/dL Invalid Interpretation Code [address] [place] [address] Comment on above: Result Comment: GENO GEMENT OF PATIENT CARE PER NURSING PROTOCOL Performed By: #### L 501.2300, L500.2500 #### [facility] [address] [place], [address] FINGERSTICK GLU 259 mg/dL High [address] [place] [address] Comment on above: Result Comment: GENO GEMENT OF PATIENT CARE PER NURSING PROTOCOL Performed By: #### L 501.080 #### [facility] [address] [place], [address] FINGERSTICK GLU 396 mg/dL High [address] [place] [address] Comment on above: Result Comment: GENO GEMENT OF PATIENT CARE PER NURSING PROTOCOL Performed By: #### L 501.2300, L500.2500 #### [facility] [address] [place], [address] Bilirubin, totalOrdered By: Michael Mercer on 07-27-2024 Bilirubin [Mass/Vol] 0.43 mg/dL 0.00-1.30 [facility] CBC W/Diff, Automatedon 07-07 Absolute Lymph 1.66 X10 3/uL Normal 0.83-4.51 [facility] Comment on above: Performed By: #### L 500.4050, L501.2300, L100.0100 #### [facility] [address] [place], [address] Absolute Neut 5.9 X10 3/uL Normal 2.0-7.7 [facility] Comment on above: Performed By: #### L 500.4050, L501.2300, L100.0100 #### [facility] [address] [place], [address] Basophils/100 WBC (Bld) 0.3 % Normal 0-1 [facility] Comment on above: Performed By: #### L 500.4050, L501.2300, L100.0100 #### [facility] [address] [place], [address] Eosinophils/100 WBC (Bld) 0.7 % Normal 0-5 [facility] Comment on above: Performed By: #### L 500.4050, L501.2300, L100.0100 #### [facility] [address] [place], [address] Erythrocyte distribution width (RBC) [Ratio] 13.2 % Normal 11.6-14.6 [facility] Comment on above: Performed By: #### L 500.4050, L501.2300, L100.0100 #### [facility] [address] [place], [address] Hematocrit (Bld) [Volume fraction] 35.6 % Low 40-54 [facility] Comment on above: Performed By: #### L 500.4050, L501.2300, L100.0100 #### [facility] [address] [place], [address] Hemoglobin (Bld) [Mass/Vol] 12.0 g/dL Low 13.0-16.5 [facility] Comment on above: Performed By: #### L 500.4050, L501.2300, L100.0100 #### [facility] [address] [place], [address] IG% 0.600 Normal 0.0-0.9 [facility] Comment on above: Result Comment: IG% - Immature Granulocytes (promyelocytes, myelocytes and metamyelocytes) > 1% indicates that a LEFT SHIFT is Present. Performed By: #### L 500.4050, L501.2300, L100.0100 #### [facility] [address] [place], [address] Lymphocytes/100 WBC (Bld) 19.1 % Normal 19-41 [facility] Comment on above: Performed By: #### L 500.4050, L501.2300, L100.0100 #### [facility] [address] [place], [address] MCH (RBC) [Entitic mass] 29.6 pg Normal 27.0-32.0 [facility] Comment on above: Performed By: #### L 500.4050, L501.2300, L100.0100 #### [facility] [address] [place], [address] MCHC (RBC) [Mass/Vol] 33.7 g/dL Normal 32-36 [facility] Comment on above: Performed By: #### L 500.4050, L501.2300, L100.0100 #### [facility] [address] [place], [address] MCV (RBC) [Entitic vol] 87.9 fL Normal 80-94 [facility] Comment on above: Performed By: #### L 500.4050, L501.2300, L100.0100 #### [facility] [address] [place], [address] Monocytes/100 WBC (Bld) 11.6 % High 0-10 [facility] Comment on above: Performed By: #### L 500.4050, L501.2300, L100.0100 #### [facility] [address] [place], [address] Neutrophils/100 WBC (Bld) 67.7 % Normal 47-70 [facility] Comment on above: Performed By: #### L 500.4050, L501.2300, L100.0100 #### [facility] [address] [place], [address] Nucleated RBC (Bld) [#/Vol] 0 10*3/uL Normal 0-5 [facility] Comment on above: Performed By: #### L 500.4050, L501.2300, L100.0100 #### [facility] [address] [place], [address] Platelet mean volume (Bld) [Entitic vol] 10.8 fL Normal 6.2-12.0 [facility] Comment on above: Performed By: #### L 500.4050, L501.2300, L100.0100 #### [facility] [address] [place], [address] Platelets (Bld) [#/Vol] 227 10*3/uL Normal 150-450 [facility] Comment on above: Performed By: #### L 500.4050, L501.2300, L100.0100 #### [facility] [address] [place], [address] RBC (Bld) [#/Vol] 4.05 10*6/uL Low 4.6-6.2 [facility] Comment on above: Performed By: #### L 500.4050, L501.2300, L100.0100 #### [facility] [address] [place], [address] RDW SD 43.1 fl Normal 35.1-43.9 [facility] Comment on above: Performed By: #### L 500.4050, L501.2300, L100.0100 #### [facility] [address] [place], [address] WBC (Bld) [#/Vol] 8.7 10*3/uL Normal 4.4-11.0 [facility] Comment on above: Performed By: #### L 500.4050, L501.2300, L100.0100 #### [facility] [address] [place], [address] Comprehensive Metabolic Prof vaon 07-27-2024 Albumin [Mass/Vol] 3.9 g/dL Normal 3.4-4.8 [facility] Comment on above: Performed By: #### L 500.4050, L501.2300, L100.0100 #### [facility] [address] [place], [address] Albumin/Globulin [Mass ratio] 1.1 {ratio} Normal 0.9-2.4 [facility] Comment on above: Performed By: #### L 500.4050, L501.2300, L100.0100 #### [facility] [address] [place], [address] ALK PHOS 71 U/L Normal 40-129 [facility] Comment on above: Performed By: #### L 500.4050, L501.2300, L100.0100 #### [facility] [address] [place], [address] ALT [Catalytic activity/Vol] 10 U/L Normal <=46 [facility] Comment on above: Performed By: #### L 500.4050, L501.2300, L100.0100 #### [facility] [address] [place], [address] AST [Catalytic activity/Vol] 14 U/L Normal <=37 [facility] Comment on above: Performed By: #### L 500.4050, L501.2300, L100.0100 #### [facility] [address] [place], [address] Bilirubin [Mass/Vol] 0.43 mg/dL Normal 0.00-1.30 [facility] Comment on above: Performed By: #### L 500.4050, L501.2300, L100.0100 #### [facility] [address] [place], [address] BUN/CRE 20.3 RATIO High 10-20 [facility] Comment on above: Performed By: #### L 500.4050, L501.2300, L100.0100 #### [facility] [address] [place], [address] Calcium [Mass/Vol] 9.3 mg/dL Normal 7.6-11.0 [facility] Comment on above: Performed By: #### L 500.4050, L501.2300, L100.0100 #### [facility] [address] [place], [address] Chloride [Moles/Vol] 104 mmol/L Normal 98-108 [facility] Comment on above: Performed By: #### L 500.4050, L501.2300, L100.0100 #### [facility] [address] [place], [address] CO2 [Moles/Vol] 22.6 mmol/L Normal 21.0-32.0 [facility] Comment on above: Performed By: #### L 500.4050, L501.2300, L100.0100 #### [facility] [address] [place], [address] Creatinine [Mass/Vol] 1.55 mg/dL High 0.70-1.20 [facility] Comment on above: Performed By: #### L 500.4050, L501.2300, L100.0100 #### [facility] [address] [place], [address] ECRCL 35.69 ml/min Low 50-250 [facility] Comment on above: Performed By: #### L 500.4050, L501.2300, L100.0100 #### [facility] [address] [place], [address] GAP 14 Normal 5-15 [facility] Comment on above: Performed By: #### L 500.4050, L501.2300, L100.0100 #### [facility] [address] [place], [address] GFR/1.73 sq M.predicted among non-blacks MDRD (S/P/Bld) [Vol rate/Area] 45 mL/min/{1.73_m2} Low >60 [facility] Comment on above: Result Comment: mL/m in/1.73m2 CKD-EPI Creatinine Equation (2020) Performed By: #### L 500.4050, L501.2300, L100.0100 #### [facility] [address] [place], [address] Globulin (S) [Mass/Vol] 3.5 g/dL Normal 2.2-4.2 [facility] Comment on above: Performed By: #### L 500.4050, L501.2300, L100.0100 #### [facility] [address] [place], [address] Glucose [Mass/Vol] 257 mg/dL High 70-99 [facility] Comment on above: Performed By: #### L 500.4050, L501.2300, L100.0100 #### [facility] [address] [place], [address] Potassium [Moles/Vol] 3.7 mmol/L Normal 3.3-5.1 [facility] Comment on above: Performed By: #### L 500.4050, L501.2300, L100.0100 #### [facility] [address] [place], [address] Sodium [Moles/Vol] 140 mmol/L Normal 133-145 [facility] Comment on above: Performed By: #### L 500.4050, L501.2300, L100.0100 #### [facility] [address] [place], [address] T PROT 7.4 g/dL Normal 5.9-8.4 [facility] Comment on above: Performed By: #### L 500.4050, L501.2300, L100.0100 #### [facility] [address] [place], [address] Urea nitrogen [Mass/Vol] 31 mg/dL High 4-19 [facility] Comment on above: Performed By: #### L 500.4050, L501.2300, L100.0100 #### [facility] [address] [place], [address] Eosinophil percentageOrdered By: Michael Mercer on 07-27-2024 Eosinophils/100 WBC (Bld) 0.7 % 0-5 [facility] Erythrocyte distribution wid th ratioOrdered By: Michael Mercer on 07-27-2024 Erythrocyte distribution width (RBC) [Ratio] 13.2 % 11.6-14.6 [facility] Erythrocyte distribution wid th standard deviationOrdered By: Michael Mercer on 07-27-2024 Erythrocyte distribution width (RBC) [Ratio] 43.1 fl 35.1-43.9 [facility] Glucoseon 07-27-2024 Glucose [Mass/Vol] 468 mg/dL Invalid Interpretation Code 70-99 [facility] Comment on above: Order Comment: Comme nts: blood glucose greater than 450 (was 455) Result Comment: Crit ical Result(s) Called at 07/27/2024-12:16 by Linden Kent to Chema Rousseau??Results read back by same. Performed By: #### L 500.4050, L501.2300, L100.0100 #### [facility] [address] [place], [address] Hematocrit Auto (Bld) [Volum e fraction]Ordered By: Michael Mercer on 07-27-2024 Hematocrit (Bld) [Volume fraction] 35.6 % Low 40-54 [facility] Hemoglobin measurementOrdere d By: Michael Mercer on 07-27-2024 Hemoglobin (Bld) [Mass/Vol] 12.0 g/dL Low 13.0-16.5 [facility] Immature granulocytes/100 WB C Auto (Bld)Ordered By: Michael Mercer on 07-27-2024 Immature granulocytes/100 WBC (Bld) 0.600 % 0.0-0.9 [facility] Comment on above: IG% - Immature Granu locytes (promyelocytes, myelocytes and metamyelocytes) > 1% indicates that a LEFT SHIFT is Present. Laboratory - Chemistry and C hemistry - challengeOrdered By: Michael Mercer on 07-27-2024 AST [Catalytic activity/Vol] 14 U/L <38 [facility] MCV (mean corpuscular volume ) determinationOrdered By: Michael Mercer on 07-27-2024 MCV (RBC) [Entitic vol] 87.9 fL 80-94 [facility] Mean corpuscular hemoglobin (MCH) determinationOrdered By: Michael Mercer on 07-27-2024 MCH (RBC) [Entitic mass] 29.6 pg 27.0-32.0 [facility] Mean corpuscular hemoglobin concentration (MCHC) determinationOrdered By: Michael Mercer on 07-27-2024 MCHC (RBC) [Mass/Vol] 33.7 g/dL 32-36 [facility] Mean platelet volume determi nationOrdered By: Michael Mercer on 07-27-2024 Platelet mean volume (Bld) [Entitic vol] 10.8 fL 6.2-12.0 [facility] Monocyte percentageOrdered B y: Michale Mercer on 07-27-2024 Monocytes/100 WBC (Bld) 11.6 % High 0-10 [facility] Neutrophil percentageOrdered By: Michael Mercer on 07-27-2024 Neutrophils/100 WBC (Bld) 67.7 % 47-70 [facility] Nucleated red blood cell per centageOrdered By: Michael Mercer on 07-27-2024 Nucleated RBC/100 WBC (Bld) [Ratio] 0 % 0-5 [facility] Phosphoruson 07-27-2024 Phosphate [Mass/Vol] 2.6 mg/dL Low 2.7-4.5 [facility] Comment on above: Performed By: #### L 500.4050, L501.2300, L100.0100 #### [facility] [address] [place], [address] Platelet countOrdered By: Ayaan Mercer on 07-27-2024 Platelets (Bld) [#/Vol] 227 10*3/uL 150-450 [facility] RBC Auto (Bld) [#/Vol]Ordere d By: Michael Mercer on 07-27-2024 RBC (Bld) [#/Vol] 4.05 10*6/uL Low 4.6-6.2 [facility] Serum globulin measurementOr dered By: Michael Mercer on 07-27-2024 Globulin (S) [Mass/Vol] 3.5 g/dL 2.2-4.2 [facility] Serum or plasma alanine ayers otransferase (ALT) measurementOrdered By: Michael Mercer on 07-27-2024 ALT [Catalytic activity/Vol] 10 U/L <47 [facility] Serum or plasma albumin lio urement (mass/volume)Ordered By: Michael Mercer on 07-27-2024 Albumin [Mass/Vol] 3.9 g/dL 3.4-4.8 [facility] Serum or plasma albumin/glob ulin mass ratioOrdered By: Michael Mercer on 07-27-2024 Albumin/Globulin [Mass ratio] 1.1 {ratio} 0.9-2.4 [facility] Serum or plasma alkaline leslie sphatase measurementOrdered By: Michael Mercer on 07-27-2024 ALP [Catalytic activity/Vol] 71 U/L 40-129 [facility] Total proteinOrdered By: Angus Mercer on 07-27-2024 Protein [Mass/Vol] 7.4 g/dL 5.9-8.4 [facility] White blood cell (WBC) count Ordered By: Michael Mercer on 07-27-2024 WBC (Bld) [#/Vol] 8.7 10*3/uL 4.4-11.0 [facility] 12 Lead EKGon 07-26-2024 12 Lead EKG [facility] [address] [place] [address] 12 Lead EKG 07/26/24 1650 MR#: [id number] Acct: [id number] Name: JEAN-CLAUDE DOUGLAS Rep #: [id number] : 1940 83 From: Hari Ramos MD Attending Dr: Dr. Dennys Buenrostro DO Status: A DM IN Ordering Dr: Warren Rosenberg DO Date: 07/26/24 Location: MS3 Sex: M C Admitted: 07/26/24 Test Reason : GENERAL Blood Pressure : */* mmHG Vent. 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 Dennys Buenrostro DO; Dr. Warren Rosenberg DO; Dr. Kb Lackey MD Signed Normal [facility] Alcohol, Blood (Medical)-Ser umon 07-26-2024 SERUM ETOH < 10.1 Normal <=10.0 [facility] Comment on above: Result Comment: This test is for medical purposes only. The legal definition of intoxication varies according to local law. Performed By: #### L 500.4050, L501.2300, L100.0100 #### [facility] [address] [place], [place], [address] Amorphous sediment detection in urine sediment by light microscopyOrdered By: Warren Rosenberg on 07-26-2024 Amorphous sediment LM Ql (Urine sed) 3+ [facility] Amphetamine detection with 1 000 ng/mL as cutoffOrdered By: Michael Mercer on 07-26-2024 Amphetamines Screen method >1000 ng/mL Ql (U) Negative < 200 ng/mL [facility] Bedside Glucoseon 07-26-2024 FINGERSTICK GLU 179 mg/dL High 74-106 [facility] Comment on above: Result Comment: GENO MATOS OF PATIENT CARE PER NURSING PROTOCOL Performed By: #### L 500.4050, L501.2300, L100.0100 #### [facility] [address] [place], [place], [address] Bilirubin Test strip Ql (U)O rdered By: Warren Rosenberg on 07-26-2024 Bilirubin Ql (U) Negative Negative [facility] Brain/Head without Contrasto n 07-26-2024 Brain/Head without Contrast [facility] Imaging Services [address] [place], [place] [address] Brain/Head without Contrast MR#: [id number] Acct: [id number] Name: JEAN-CLAUDE DOUGLAS Rep #: [id number] : 1940 M 83 From: Irwin Elise MD PCP: Dr. Kb Lackey MD Status: REG ER Study: Brain/Head without Contrast Date of Exam: 07/07 05/01 Exam# [id number] Ordering Dr: Warren Rosenberg DO PROCEDURE: BRAIN/HEAD WITHOUT CONTRAST 07/26/2024 REASON FOR EXAM: CONFUSION TECHNIQUE: Head CT without intravenous contrast. Coronal and Sagittal reconstruction series were provided. One or more dose reduction techniques were used (e.g., Automated exposure control, adjustment of the mA and/or kV according to patient size, use of iterative reconstruction technique. FINDINGS: Brain: Low density in the periventricular white matter suggests mild chronic small vessel ischemic changes. CSF Spaces: Moderate generalized cerebral atrophy Sinuses/Mastoids: Clear at visualized levels Bones: Unremarkable. CT/Brain/Head without Contrast IMPRESSION: CHRONIC CHANGES. NO ACUTE FINDINGS. Reading Location: [id number] CC: Dr. Warren Rosenberg DO; Dr. Kb Lackey MD Cable Spooler: Signed Normal [facility] CBC W/Diff, Automatedon 07-07 Absolute Lymph 1.01 X10 3/uL Normal 0.83-4.51 [facility] Comment on above: Performed By: #### L 501.2300, L500.2500 #### [facility] [address] [place], [address] Absolute Neut 8.0 X10 3/uL High 2.0-7.7 [facility] Comment on above: Performed By: #### L 501.2300, L500.2500 #### [facility] [address] [place], [address] Basophils/100 WBC (Bld) 0.3 % Normal 0-1 [facility] Comment on above: Performed By: #### L 501.2300, L500.2500 #### [facility] [address] [place], [address] Eosinophils/100 WBC (Bld) 0.1 % Normal 0-5 [facility] Comment on above: Performed By: #### L 501.2300, L500.2500 #### [facility] [address] [place], [address] Erythrocyte distribution width (RBC) [Ratio] 13.2 % Normal 11.6-14.6 [facility] Comment on above: Performed By: #### L 501.2300, L500.2500 #### [facility] [address] [place], [address] Hematocrit (Bld) [Volume fraction] 38.1 % Low 40-54 [facility] Comment on above: Performed By: #### L 501.2300, L500.2500 #### [facility] [address] [place], [address] Hemoglobin (Bld) [Mass/Vol] 12.6 g/dL Low 13.0-16.5 [facility] Comment on above: Performed By: #### L 501.2300, L500.2500 #### [facility] [address] [place], [address] IG% 0.700 Normal 0.0-0.9 [facility] Comment on above: Result Comment: IG% - Immature Granulocytes (promyelocytes, myelocytes and metamyelocytes) > 1% indicates that a LEFT SHIFT is Present. Performed By: #### L 501.2300, L500.2500 #### [facility] [address] [place], [address] Lymphocytes/100 WBC (Bld) 9.8 % Low 19-41 [facility] Comment on above: Performed By: #### L 501.2300, L500.2500 #### [facility] [address] [place], [address] MCH (RBC) [Entitic mass] 29.2 pg Normal 27.0-32.0 [facility] Comment on above: Performed By: #### L 501.2300, L500.2500 #### [facility] [address] [place], [address] MCHC (RBC) [Mass/Vol] 33.1 g/dL Normal 32-36 [facility] Comment on above: Performed By: #### L 501.2300, L500.2500 #### [facility] [address] [place], [address] MCV (RBC) [Entitic vol] 88.2 fL Normal 80-94 [facility] Comment on above: Performed By: #### L 501.2300, L500.2500 #### [facility] [address] [place], [address] Monocytes/100 WBC (Bld) 11.6 % High 0-10 [facility] Comment on above: Performed By: #### L 501.2300, L500.2500 #### [facility] [address] [place], [address] Neutrophils/100 WBC (Bld) 77.5 % High 47-70 [facility] Comment on above: Performed By: #### L 501.2300, L500.2500 #### [facility] [address] [place], [address] Nucleated RBC (Bld) [#/Vol] 0 10*3/uL Normal 0-5 [facility] Comment on above: Performed By: #### L 501.2300, L500.2500 #### [facility] [address] [place], [address] Platelet mean volume (Bld) [Entitic vol] 11.1 fL Normal 6.2-12.0 [facility] Comment on above: Performed By: #### L 501.2300, L500.2500 #### [facility] [address] [place], [address] Platelets (Bld) [#/Vol] 251 10*3/uL Normal 150-450 [facility] Comment on above: Performed By: #### L 501.2300, L500.2500 #### [facility] [address] [place], [address] RBC (Bld) [#/Vol] 4.32 10*6/uL Low 4.6-6.2 [facility] Comment on above: Performed By: #### L 501.2300, L500.2500 #### [facility] [address] [place], [address] RDW SD 42.6 fl Normal 35.1-43.9 [facility] Comment on above: Performed By: #### L 501.2300, L500.2500 #### [facility] [address] [place], [address] WBC (Bld) [#/Vol] 10.3 10*3/uL Normal 4.4-11.0 [facility] Comment on above: Performed By: #### L 501.2300, L500.2500 #### [facility] [address] [place], [address] Chest 1 View (Portable)on Chest 1 View (Portable) [facility] Imaging Services [address] [place] [address] Chest 1 View (Portable) MR#: [id number] Acct: [id number] Name: JEAN-CLAUDE DOUGLAS Rep #: [id number] : 1940 M 83 From: Morales Lin MD PCP: Dr. Kb Lackey MD Status: [facility] ER Study: Chest 1 View (Portable) Date of Exam: 07/26/24 Exam# [id number] Ordering Dr: Warren Rosenberg DO PROCEDURE: CHEST 1 VIEW (PORTABLE) 07/26/2024 REASON FOR EXAM: CONFUSION TECHNIQUE: Frontal view of the chest. COMPARISON: No relevant prior FINDINGS: Lungs: Lungs clear of pneumonia and congestion. Pleura: No pleural effusions, thickening, or pneumothorax. Heart: Normal in size and configuration. Mediastinum/Simi: Unremarkable. Great vessels: Marked atherosclerotic tortuosity of the aorta. Bones/soft tissues: Unremarkable. RAD/Chest 1 View (Portable) IMPRESSION: No active cardiopulmonary disease. Reading Location: [facility] CC: Dr. Warren Rosenberg DO; Dr. Kb Lackey MD Cable Spooler: Signed Normal [facility] Comprehensive Metabolic Prof ilon 07-26-2024 Albumin [Mass/Vol] 4.1 g/dL Normal 3.4-4.8 [facility] Comment on above: Performed By: #### L 501.2300, L500.2500 #### [facility] [address] [place], [address] Albumin/Globulin [Mass ratio] 1.1 {ratio} Normal 0.9-2.4 [facility] Comment on above: Performed By: #### L 501.2300, L500.2500 #### [facility] [address] [place], [address] ALK PHOS 72 U/L Normal 40-129 [facility] Comment on above: Performed By: #### L 501.2300, L500.2500 #### [facility] [address] [place], [address] ALT [Catalytic activity/Vol] 9 U/L Normal <=46 [facility] Comment on above: Performed By: #### L 501.2300, L500.2500 #### [facility] [address] [place], [address] AST [Catalytic activity/Vol] 20 U/L Normal <=37 [facility] Comment on above: Performed By: #### L 501.2300, L500.2500 #### [facility] [address] [place], [address] Bilirubin [Mass/Vol] 0.39 mg/dL Normal 0.00-1.30 [facility] Comment on above: Performed By: #### L 501.2300, L500.2500 #### [facility] [address] [place], [address] BUN/CRE 21.5 RATIO High 10-20 [facility] Comment on above: Performed By: #### L 501.2300, L500.2500 #### [facility] [address] [place], [address] Calcium [Mass/Vol] 9.4 mg/dL Normal 7.6-11.0 [facility] Comment on above: Performed By: #### L 501.2300, L500.2500 #### [facility] [address] [place], [address] Chloride [Moles/Vol] 104 mmol/L Normal 98-108 [facility] Comment on above: Performed By: #### L 501.2300, L500.2500 #### [facility] [address] [place], [address] CO2 [Moles/Vol] 22.8 mmol/L Normal 21.0-32.0 [facility] Comment on above: Performed By: #### L 501.2300, L500.2500 #### [facility] [address] [place], [address] Creatinine [Mass/Vol] 1.64 mg/dL High 0.70-1.20 [facility] Comment on above: Performed By: #### L 501.2300, L500.2500 #### [facility] [address] [place], [address] GAP 14 Normal 5-15 [facility] Comment on above: Performed By: #### L 501.2300, L500.2500 #### [facility] [address] [place], [address] GFR/1.73 sq M.predicted among non-blacks MDRD (S/P/Bld) [Vol rate/Area] 42 mL/min/{1.73_m2} Low >60 [facility] Comment on above: Result Comment: mL/m in/1.73m2 CKD-EPI Creatinine Equation (2020) Performed By: #### L 501.2300, L500.2500 #### [facility] [address] [place], [address] Globulin (S) [Mass/Vol] 3.5 g/dL Normal 2.2-4.2 [facility] Comment on above: Performed By: #### L 501.2300, L500.2500 #### [facility] [address] [place], [address] Glucose [Mass/Vol] 179 mg/dL High 70-99 [facility] Comment on above: Performed By: #### L 501.2300, L500.2500 #### [facility] [address] [place], [address] Potassium [Moles/Vol] 4.4 mmol/L Normal 3.3-5.1 [facility] Comment on above: Performed By: #### L 501.2300, L500.2500 #### [facility] [address] [place], [address] Sodium [Moles/Vol] 140 mmol/L Normal 133-145 [facility] Comment on above: Performed By: #### L 501.2300, L500.2500 #### [facility] [address] [place], [address] T PROT 7.6 g/dL Normal 5.9-8.4 [facility] Comment on above: Performed By: #### L 501.2300, L500.2500 #### [facility] [address] [place], [address] Urea nitrogen [Mass/Vol] 35 mg/dL High 4-19 [facility] Comment on above: Performed By: #### L 501.2300, L500.2500 #### [facility] [address] [place], [address] Emergency Department Summary on 07-26-2024 Emergency Department Summary [facility] Medical Records Department [address] [place] [address] Emergency Department Summary 07/26/24 MR#: [id number] Acct: [id number] Name: JEAN-CLAUDE DOUGLAS Rep #: [id number] : 1940 83 From: Warren Rosenberg DO PCP: Dr. Kb Lackey MD Status:REG ER Location: ED HPI History of Present Illness Chief Complaint: General Illness PFSH PFS Medical History Dementia Benign essential hypertension Hypothyroidism (acquired) Diabetes Vision problem Thyroid disease Hearing problem Cataract gallbladder Hernia Hypertension Hypothyroidism Diabetes mellitus Home Medications ???Medication ???Instructions ???Recorded ???Last Taken ???Type ferrous sulfate 325 mg (65 mg 325 mg PO DAILY anemia 06/25/20 History iron) tablet lancets 30 gauge and blood glucose ##1 06/27/20 Unknown Rx strips combo pack cholecalciferol (vitamin D3) 25 25 mcg PO DAILY vitamin 07/18/20 0 07/26/24 History mcg (1,000 unit) capsule metformin 500 mg tablet,extended 1,000 mg (2 x 500 mg) PO BID 11/2407/26/24 Rx release 24 hr diabetes #360 tabs pen needle, diabetic, safety 30 #100 ea 01/05/24 Unknown Rx gauge x 1/3 glimepiride 2 mg tablet 2 mg PO BID #180 tabs 04/21/24 Rx cyanocobalamin (vitamin B-12) 1,000 mcg PO DAILY 07/26/24 History 1,000 mcg tablet insulin NPH-regular 70-30 U-100 See Rx Instructions subcut BID 07/26/24 History insulin 100 unit/mL subcutaneous pen (Novolin 70-30 FlexPen U-100 Insulin) levothyroxine 125 mcg tablet 125 mcg PO DAILY 07/26/24 07/26/24 History lisinopril 30 mg tablet 30 mg PO DAILY 07/26/24 07/26/24 H istory Allergy/AdvReac Type Severity Reaction Status Date / Time No Known Allergies Allergy Verified 07/26/24 16:08 Family History Other Cancer Surgical History History of cholecystectomy Social History Smoking Status: Former smoker alcohol intake: current alcohol intake frequency: 0-2 drinks per day substance use type: does not use what type of physical activity do you participate in: walking frequency: daily EXAM Physical Exam Const Vital Signs: 07/26/24 16:08 Temperature 98.8 F Temperature Source Oral Pulse Rate 74 Respiratory Rate 16 Blood Pressure 131/89 H Blood Pressure Mean 103 Pulse Ox 96 Oxygen Delivery Method Room Air [facility] Narrative Medical decision making narrative: HISTORY OF PRESENT ILLNESS: Chief complaint: Confusion, hypoglycemia 83-year-old male history of type 2 diabetes, hypertension hypothyroidism presents with undulating glucose levels. Notes glucose up-and-down today. Notes it has been 160 but as low as 50. Per family patient has baseline mental status. The patient is asymptomatic. REVIEW OF SYSTEMS: Pertinent positives: Confusion, low blood sugar Pertinent negatives: Headache, chest pain, urinary complaints PHYSICAL EXAM: Nursing triage notes reviewed, Vital signs reviewed Constitutional: please see [facility] HENT: MMM Eyes: Pupils equal round and reactive to light, Extraocular muscles intact Neck: No stridor, no JVD, full neck ROM Lungs: Clear to auscultation, No wheezing or rales. No increased work of breathing, no conversational dyspnea, no accessory muscle use, no nasal flaring. No respiratory distress noted Heart: Regular rate and rhythm, No murmurs, No rubs and No gallops, 2+ distal pulses (radial, femoral, posterior tibial) in all extremities Abdomen: Soft, there is no tenderness, rigidity, rebound or guarding, no obvious peritoneal signs, no palpable pulsatile abdominal masses, no auscultated abdominal bruit : No CVAT Extremities: No edema Neuro: No new focal neurological deficits, at baseline alert and orient x 2 (alert and oriented to person and place but not time) cranial nerves II through XII intact, 5/5 strength in all present e xtremities. Intact sensation to light touch in all present extremities, 2+ reflexes bilateral patella tendons. Skin: No rash or lesions noted MEDICAL DECISION MAKING: Chief Complaint: please see HPI External records reviewed: Reviewed prior medications: Patient is currently on insulin, metformin and glimepiride Factors affecting care: type 2 diabetes Social determinants of health: none History obtained from others: none Consults: Internal Medicine (Dr. House) [facility] Narrative: The patient was initially hemodynamically stable, afebrile and nontoxic-appearing. Exam with no focal deficits. I considered the following differential diagnosis: ICH, metabolic or inf (more content not included)... Normal [facility] Ferritinon 07-26-2024 Ferritin [Mass/Vol] 193 ng/mL Normal 37-417 [facility] Comment on above: Performed By: #### L 501.2300, L500.2500 #### [facility] [address] [place], [address] Folate [Moles/volume] in Ser um or PlasmaOrdered By: Michael Mercer on 07-26-2024 Folate [Moles/Vol] 11.00 ng/mL 4.60-34.80 [facility] Folates,Serum (Folic Acid)on 07-26-2024 FOLATES,SERUM 11.00 ng/mL Normal 4.60-34.80 [facility] Comment on above: Order Comment: N Performed By: #### L 501.2300, L500.2500 #### [facility] [address] [place], [address] [facility]&P Exam - Hospitalist [facility] Medical Records Department [address] [place] [address] H P Exam - Hospitalist 07/26/241944 MR#: [id number] Acct: [id number] Name: JEAN-CLAUDE DOUGLAS Rep #: [id number] : 1940 83 From: Michael House DO PCP: Dr. Kb Lackey MD Status:ADM IN [facility] - General General Date of Admission: 07/26/24 Date of Service: 07/26/24 Chief Complaint: Confusion and Fluctuating Blood Glucose. HPI Narrative JEAN-CLAUDE DOUGLAS, is a 83 M with a past medical history of essential hypertension; on lisinopril, hypothyroidism; levothyroxine, DM-2; of unknown control on metformin twice daily, glimepiride twice daily plus 70-30 insulin, iron deficiency anemia; on ferrous sulfate, history of dementia, history of CHANTALE, history of cholecystectomy, history of hernia; s/p repair, history of cataracts and OA who presents to [facility] ER complaining of confusion and fluctuating blood glucose. Mr. Linares reports his symptoms began approximately 1 day prior to admission with the patient noting undulating glucose levels from his lowest 50 mg/dL to 160 mg/dL patient otherwise asymptomatic. The family reported to the ER physician the patient is at his baseline mental status at this time. There was no reported fever, chills, nausea, vomiting, diarrhea, constipation, dysuria, hematuria, chest pain, shortness of breath, headache or rash. In the ER he was noted to have a UA positive for Acute Cystitis; with hematuria complicated by additional laboratory evidence of suspected CHANTALE; with elevated serum creatinine of 1.64 mg/dL and BUN of 35 mg/dL (up from his baseline of 1.2 mg/dL and BUN of 32 mg/dL last admission) compounded by intermittent Hypoglycemia likely due to Adverse Drug reaction to glimepiride culminating to cause clinical evidence of Acute Metabolic Encephalopathy and he was then admitted to the general medical floor for ongoing care for status is expected to extend beyond 2 midnights. [facility] Medical History Dementia Benign essential hypertension Hypothyroidism (acquired) Diabetes Vision problem Thyroid disease Hearing problem Cataract gallbladder Hernia Hypertension Hypothyroidism Diabetes mellitus Home Medications ???Medication ???Instructions ???Recorded ???Last Taken ???Type ferrous sulfate 325 mg (65 mg 325 mg PO DAILY anemia 06/25/20 History iron) tablet lancets 30 gauge and blood glucose ##1 06/27/20 Unknown Rx strips combo pack cholecalciferol (vitamin D3) 25 25 mcg PO DAILY vitamin 07/18/20 0 07/26/24 History mcg (1,000 unit) capsule metformin 500 mg tablet,extended 1,000 mg (2 x 500 mg) PO BID 11/2407/26/24 Rx release 24 hr diabetes #360 tabs pen needle, diabetic, safety 30 #100 ea 01/05/24 Unknown Rx gauge x 1/3 glimepiride 2 mg tablet 2 mg PO BID #180 tabs 04/21/24 Rx cyanocobalamin (vitamin B-12) 1,000 mcg PO DAILY 07/26/24 History 1,000 mcg tablet insulin NPH-regular 70-30 U-100 See Rx Instructions subcut BID 07/26/24 History insulin 100 unit/mL subcutaneous pen (Novolin 70-30 FlexPen U-100 Insulin) levothyroxine 125 mcg tablet 125 mcg PO DAILY 07/26/24 07/26/24 History lisinopril 30 mg tablet 30 mg PO DAILY 07/26/24 07/26/24 H istory Allergy/AdvReac Type Severity Reaction Status Date / Time No Known Allergies Allergy Verified 07/26/24 16:08 Family History Other Cancer Surgical History History of cholecystectomy Social History Smoking Status: Former smoker alcohol intake: current alcohol intake frequency: 0-2 drinks per day substance use type: does not use what type of physical activity do you participate in: walking frequency: daily ROS ROS Narrative Review of Systems: Constitutional: Patient admits to intermittent confusion coinciding with hypoglycemia but he denies fever or chills. Eyes: Patient denies change in vision or discharge from eyes. ENT: Patient denies runny nose, sore throat or ear pain. Resp: Patient denies shortness of breath or cough. CV: Patient denies chest pain, palpitations, heart racing or lower extremity edema. GI: Patient denies abdominal pain, nausea, vomiting, diarrhea or constipation. : Patient denies dysuria, hematuria or urinary frequency. MSK: Patient denies arthralgias or myalgias. Skin: Patient denies rash, abscess, wounds or jaundice. Psych: Patient denies symptoms well-controlled depression or anxiety. Neuro: Patient admits to intermittent confusion coinciding with hypoglycemia but he denies headache, paresthesias or other focal mo (more content not included)... Normal [facility] Hemoglobin A1con 07-26-2024 HbA1c (Bld) [Mass fraction] 9.5 % High <=5.6 [facility] Comment on above: Result Comment: Norm al < 5.7 % Prediabetic 5.7 - 6.4 % Diabetic >or= 6.5 % Please note range changes. Performed By: #### L 503.0287, L506.0200, L503.6030, L501.5200, L501.2820, L501.9985 #### [facility] [address] [place], [place], [address] Hemoglobin A1c percentageOrd ered By: Michael Mercer on 07-26-2024 HbA1c (Bld) [Mass fraction] 9.5 % High <5.7 [facility] Comment on above: Normal < 5.7 % Predi abetic 5.7 - 6.4 % Diabetic >or= 6.5 % Please note range changes. Influenza virus A and B and SARS-CoV-2 (COVID-19) and Respiratory syncytial virus RNAOrdered By: Warren Rosenberg on 07-26-2024 SARS-CoV-2 (COVID-19) RNA [place]+probe Ql (Unsp spec) [facility] Iron measurement (mass/mass) Ordered By: Michael Mercer on 07-26-2024 Iron (Unsp spec) [Mass/Mass] 13 ug/dL Low 65-175 [facility] Iron+Iron Binding Capacityon 07-26-2024 Iron [Mass/Vol] 13 ug/dL Low 65-175 [facility] Comment on above: Performed By: #### L 503.6550, L506.0200, L503.6030, L501.5200, L501.9520, L501.9985 #### [facility] [address] [place], [place], [address] IRON SATURATION 6.0 Low 9-55 [facility] Comment on above: Result Comment: AMENDED REPORT 07/26/242105 IRON SATURATION previously reported as: 6.0 L % Performed By: #### L 503.6550, L506.0200, L503.6030, L501.5200, L501.9520, L501.9985 #### [facility] [address] [place], [place], [id number] UIBC 221 ug/dL Low 228-428 [facility] Comment on above: Performed By: #### L 503.6550, L506.0200, L503.6030, L501.5200, L501.9520, L501.9985 #### [facility] [address] [place], [address] Ketones Test strip Ql (U)Ord ered By: Warren Rosenberg on 07-26-2024 Ketones Ql (U) 15 mg/dl High Negative [facility] L501.4021on 07-26-2024 Trop T High Sen 20 ng/L Normal <=22 [facility] Comment on above: Performed By: #### L 501.2300, L500.2500 #### [facility] [address] [place], [address] M100.678on 07-26-2024 M100.678 Pending SARS-CoV-2 (COVID 19) Negative INFLUENZA A Negative INFLUENZA B Negative RSV PCR Negative Normal [facility] Comment on above: Performed By: #### L 501.2300, L500.2500 #### [facility] [address] [place], [address] Magnesiumon 07-26-2024 Magnesium [Mass/Vol] 1.5 mg/dL Normal 1.5-2.2 [facility] Comment on above: Performed By: #### L 503.6550, L506.0200, L503.6030, L501.5200, L501.9520, L501.9985 #### [facility] [address] [place], [address] Magnesium measurement (mass/ volume)Ordered By: Michael Mercer on 07-26-2024 Magnesium (Unsp spec) [Mass/Vol] 1.5 mg/dL 1.5-2.2 [facility] Microscopic analysis of urin e for red blood cells (RBC)Ordered By: Warren Rosenberg on 07-26-2024 Microscopic analysis of urine for red blood cells (RBC) 5-10 SEEN /hpf 0-5 [facility] Mucus LM Ql (Urine sed)Order ed By: Warren Rosenberg on 07-26-2024 Mucus Ql (Urine sed) 0 SEEN /hpf [facility] Nitrite Test strip Ql (U)Ord ered By: Warren Rosenberg on 07-26-2024 Nitrite Ql (U) Positive High Negative [facility] No Panel InformationOrdered By: Michael Mercer on 07-26-2024 Urine Buprenorphine Qualitative Negative < 200 ng/mL [facility] Urine Oxycodone Screen Negative < 100 ng/mL [facility] Unsaturated Iron Binding Capacity 221 ug/dL Low 228-428 [facility] Protein Test strip Ql (U)Ord ered By: Warren Rosenberg on 07-26-2024 Protein Ql (U) 100 mg/dl High Negative [facility] Quantitative urine opiates m easurementOrdered By: Michael Mercer on 07-26-2024 Opiates Ql (U) Negative < 300 ng/mL [facility] Screening urine fentanyl doreen surementOrdered By: Michael Mercer on 07-26-2024 fentaNYL Screen Ql (U) Negative [facility] Serum or plasma ethanol lio urement (mass/volume)Ordered By: Michael Mercer on 07-26-2024 Ethanol [Mass/Vol] mg/dL <10.1 [facility] Comment on above: This test is for med ical purposes only. The legal definition of intoxication varies according to local law. Serum or plasma ferritin doreen surement (mass/volume)Ordered By: Michael Mercer on 07-26-2024 Ferritin [Mass/Vol] 193 ng/mL 37-417 [facility] Serum or plasma iron saturat ion measurement (mass fraction)Ordered By: Michael Mercer on 07-26-2024 Iron saturation [Mass fraction] 5.6 % Low 9-55 [facility] Comment on above: Previous reported re sult: 6.0 %Edited by: DORETHA on 07/26/24:2105 AMENDED REPORT 07/26/242105 IRON SATURATION previously reported as: 6.0 L % Squamous epithelial cells de tection in urine sediment by light microscopyOrdered By: Warren Rosenberg on 07-26-2024 Epithelial cells.squamous LM Ql (Urine sed) 0-5 SEEN /hpf 0-5 [facility] TSH DL <= 0.005 mIU/L QnOrde red By: Michael Mercer on 07-26-2024 TSH Qn 2.300 uIU/mL 0.300-4.200 [facility] Thyroid Stim Hormone (TSH)on 07-26-2024 TSH 2.300 uIU/mL Normal 0.300-4.200 [facility] Comment on above: Performed By: #### L 503.6550, L506.0200, L503.6030, L501.5200, L501.9520, L501.9985 #### [facility] [address] [place], [address] Triple phosphate crystals de tection in urine sediment by light microscopyOrdered By: Warren Rosenberg on 07-26-2024 Triple phosphate crystals LM Ql (Urine sed) RARE /hpf [facility] Troponin T.cardiac [Mass/vol ume] in Serum or Plasma by High sensitivity methodOrdered By: Warren Rosenberg on 07-26-2024 Troponin T.cardiac High sensitivity method [Mass/Vol] 20 ng/L <22 [facility] Urinalysis, Completeon 07-26 BILIRUBIN URINE Negative Normal Negative [facility] Comment on above: Order Comment: CLEAN CATCH Performed By: #### L 501.2300, L500.2500 #### [facility] [address] [place], [address] Clarity (U) Turbid Normal Clear [facility] Comment on above: Order Comment: CLEAN CATCH Performed By: #### L 501.2300, L500.2500 #### [facility] [address] [place], [address] Color (U) Yellow Normal Yellow [facility] Comment on above: Order Comment: CLEAN CATCH Performed By: #### L 501.2300, L500.2500 #### [facility] [address] [place], [address] GLUCOSE, UR 100 mg/dl Abnormal Normal [facility] Comment on above: Order Comment: CLEAN CATCH Performed By: #### L 501.2300, L500.2500 #### [facility] [address] [place], [address] KETONE UR 15 mg/dl Abnormal Negative [facility] Comment on above: Order Comment: CLEAN CATCH Performed By: #### L 501.2300, L500.2500 #### [facility] [address] [place], [address] LEUK ESTERASE 500 /ul Abnormal Negative [facility] Comment on above: Order Comment: CLEAN CATCH Performed By: #### L 501.2300, L500.2500 #### [facility] [address] [place], [address] Nitrite Ql (U) Positive Abnormal Negative [facility] Comment on above: Order Comment: CLEAN CATCH Performed By: #### L 501.2300, L500.2500 #### [facility] [address] [place], [address] OCCULT BLOOD-UR 250 /ul Abnormal Negative [facility] Comment on above: Order Comment: CLEAN CATCH Performed By: #### L 501.2300, L500.2500 #### [facility] [address] [place], [address] pH UR 7.0 Normal 5.0 - 8.0 [facility] Comment on above: Order Comment: CLEAN CATCH Performed By: #### L 501.2300, L500.2500 #### [facility] [address] [place], [address] PROT DIPSTX 100 mg/dl Abnormal Negative [facility] Comment on above: Order Comment: CLEAN CATCH Performed By: #### L 501.2300, L500.2500 #### [facility] [address] [place], [address] SP.GR. DIPSTX 1.010 Normal 1.002-1.030 [facility] Comment on above: Order Comment: CLEAN CATCH Performed By: #### L 501.2300, L500.2500 #### [facility] [address] [place], [place], [address] UROBILI Normal Normal Normal [facility] Comment on above: Order Comment: CLEAN CATCH Performed By: #### L 501.2300, L500.2500 #### [facility] [address] [place], [address] Urine benzodiazepine levelOr dered By: Michael Mercer on 07-26-2024 Benzodiazepines Ql (U) Negative < 200 ng/mL [facility] Urine clarityOrdered By: Tian Rosenberg on 07-26-2024 Clarity (U) Turbid Clear [facility] Urine cocaine levelOrdered B y: Michael Mercer on 07-26-2024 Cocaine Ql (U) Negative < 300 ng/mL [facility] Urine color determinationOrd ered By: Warren Rosenberg on 07-26-2024 Color (U) Yellow Yellow [facility] Urine deikl-6-gqvreegakguwpm abinol (THC) measurementOrdered By: Michael Mercer on 07-26-2024 Cannabinoids Screen Ql (U) Negative < 50 ng/mL [facility] Urine glucose detectionOrder ed By: Warren Rosenberg on 07-26-2024 Glucose Ql (U) 100 mg/dl High Normal [facility] Urine leukocyte esterase det ection by dipstickOrdered By: Warren Rosenberg on 07-26-2024 Leukocyte esterase Test strip Ql (U) 500 /ul High Negative [facility] Urine pHOrdered By: Warren dangelo on 07-26-2024 pH (U) 7.0 [pH] 5.0 - 8.0 [facility] Urine phencyclidine (PCP) de tectionOrdered By: Michael Mercer on 07-26-2024 Phencyclidine Ql (U) Negative < 25 ng/mL [facility] Urine sediment bacteria coun t by microscopy (number/high power field)Ordered By: Warren Rosenberg on 07-26-2024 Bacteria LM.HPF (Urine sed) [#/Area] 4 /[HPF] None Seen [facility] Urine specific gravity measu rementOrdered By: Warren Rosenberg on 07-26-2024 Specific gravity (U) [Rel density] 1.010 1.002-1.030 [facility] Urine urobilinogen measureme ntOrdered By: Warren Rosenberg on 07-26-2024 Urobilinogen Ql (U) Normal mg/dl Normal [facility] Vitamin B12on 07-26-2024 Cobalamin (Vitamin B12) [Mass/Vol] 769 pg/mL Normal 180-914 [facility] Comment on above: Performed By: #### L 501.2300, L500.2500 #### [facility] [address] [place], [place], [address] Vitamin B12 ser/plasOrdered By: Michael Mercer on 07-26-2024 Cobalamin (Vitamin B12) [Mass/Vol] 769 pg/mL 180-914 [facility] White blood cell countOrdere d By: Warren Rosenberg on 07-26-2024 White blood cell count 10-25 SEEN /hpf 0-5 [facility] Endocrinology Visit Reporton 06-22-2024 Endocrinology Visit Report [facility] [address] [place], [place] [address] OFFICE VISIT Date of Service: 06/22/24 MR#: [id number] Acct: [id number] Name: JEAN-CLAUDE DOUGLAS Rep #: [id number] : 1940 Provider: Betsey Garcia Age/Sex: 83/M Location: [facility] [place] Status: Signed Intake Vital Signs 05/18/24 10:25 06/22/24 11:23 Height 5 ft 10 in 5 ft 10 in Weight: 155 lb 4 oz 156 lb 8 oz BMI 22.2 22.4 BP 168/85 H 147/73 H Blood Pressure Location Rt brachial Rt brachial Position Sitting Sitting Pulse 60 55 L Pulse Source Monitor Monitor Pulse Oximetry (%) 98 97 Oxygen Delivery Method room air room air Intake Visit Reasons: 1 M FU Chief Complaint: Diabetes Is patient in pain?: No Allergies No Known Allergies Allergy (Verified 06/22/24 11:24) Medications ???Medication ???Instructions ???Recorded ???Confirmed ???Type cyanocobalamin (vitamin B-12) 500 1,000 mcg PO DAILY@0800 vitamin 1 05/18/13 06/22/24 History mcg tablet ferrous sulfate 325 mg (65 mg 325 mg PO DAILY anemia 06/25/20 History iron) tablet lancets 30 gauge and blood glucose ##1 06/27/20 06/22/24 Rx strips combo pack cholecalciferol (vitamin D3) 25 25 mcg PO DAILY vitamin 07/18/20 0 06/22/24 History mcg (1,000 unit) capsule lisinopril 20 mg tablet 20 mg PO DAILY blood pressure 03/0706/22/24 History levothyroxine 137 mcg tablet 137 mcg PO DAILY 11/25/23 06/22/24 History metformin 500 mg tablet,extended 1,000 mg (2 x 500 mg) PO BID 11/2406/22/24 Rx release 24 hr diabetes #360 tabs pen needle, diabetic, safety 30 #100 ea 01/05/24 06/22/24 Rx gauge x 04/09 glimepiride 2 mg tablet 2 mg PO BID #180 tabs 04/21/24 Rx insulin NPH-regular 70-30 U-100 See Rx Instructions subcut BID #3 04/26/24 06/22/24 Rx insulin 100 unit/mL subcutaneous mL pen (Novolin 70-30 FlexPen U-100 Insulin) insulin aspar prot-insulin aspart See Rx Instructions subcut BID #1 5 05/18/24 06/22/24 Rx 100 unit/mL (70-30) subcutaneous mL pen (Novolog Mix 70-30FlexPen U-100) Have you fallen in the past year?: No PFSH Medical History Dementia Benign essential hypertension Hypothyroidism (acquired) Diabetes Vision problem Thyroid disease Hearing problem Cataract gallbladder Hernia Hypertension Hypothyroidism Diabetes mellitus Surgical History History of cholecystectomy Family History Other Cancer Social History Smoking Status: Former smoker alcohol intake: current alcohol intake frequency: 0-2 drinks per day substance use type: does not use what type of physical activity do you participate in: walking frequency: daily HPI HPI Chief Complaint: Diabetes Details: JEAN-CLAUDE DOUGLAS, is a 83 M who presents to the office today for follow up. He is here for insulin adjustment. He has dementia and needs frequent medication adjustment. I reviewed his CGM. There is some improvement from last time. Occasional low over night, but sugars climb throughout the day. Current insulin is 25 am and 15 pm ROS Const Constitutional: No fatigue or weight change ENT ENT: No dizziness/vertigo Cardio Cardiology: No chest pain at rest, chest pain with exertion, shortness of breath or palpitations Skin Skin: No wounds Endo Endocrine: No fatigue or weight change Exam Const General: cooperative, comfortable and no acute distress Nutritional Appearance: average body habitus Orientation: alert and awake HENMO Head: normal to inspection Eyes General: appearance normal, both eyes and all related structures Neck Neck: normal visual inspection Resp Effort Inspection: normal respiratory effort, able to speak in complete sentences, symmetric chest movement, no audible wheezes and no cough Neuro General: patient alert and patient awake Cranial Nerves: CN's II-XI intact bilaterally Speech: speech normal Psych Appearance: grossly normal Mood: congruent mood Affect: normal affect Judgment: limited Clinical Quality Measures Falls Risk Screening/Assistive Devices Have you fallen in the past year?: No Assessment and Plan Assessment and Plan (1) Diabetes: Status: Chronic Qualifiers: Diabetes mellitus type: type 2 Diabetes mellitus manager intermediate insulin use: with manager intermediate use Diabetes mellitus complication status: with neurologic complications Diabetes mellitus complication detail: with polyneuropathy Qualified Code(s): E11.42 - Type 2 diabetes mellitus with diabetic polyneuropathy; Z79.4 - FCI (current) use of insulin Plan: (more content not included)... Normal [facility] Endocrinology Visit Reporton 05-18-2024 Endocrinology Visit Report [facility] [address] [place] [address]. [address] [place] [address] OFFICE VISIT Date of Service: 05/18/24 MR#: [id number] Acct: [id number] Name: JEAN-CLAUDE DOUGLAS Rep #: [id number] : 1940 Provider: Betsey Garcia Age/Sex: 83/M Location: [facility] [place] Status: Signed Intake Vital Signs 11/25/23 09:50 05/18/24 10:25 Height 5 ft 10 in 5 ft 10 in Weight: 155 lb 155 lb 4 oz BMI 22.2 22.2 BP 126/81 H 168/85 H Blood Pressure Location Lt brachial Rt brachial Position Sitting Sitting Pulse 97 60 Pulse Source Monitor Monitor Pulse Oximetry (%) 94 98 Oxygen Delivery Method room air room air Intake Visit Reasons: 6 M FU Chief Complaint: Diabetes Is patient in pain?: No Allergies No Known Allergies Allergy (Verified 05/18/24 10:33) Medications ???Medication ???Instructions ???Recorded ???Confirmed ???Type cyanocobalamin (vitamin B-12) 500 1,000 mcg PO DAILY@0800 vitamin 1 05/18/13 05/18/24 History mcg tablet ferrous sulfate 325 mg (65 mg 325 mg PO DAILY anemia 06/25/20 History iron) tablet lancets 30 gauge and blood glucose ##1 06/27/20 05/18/24 Rx strips combo pack cholecalciferol (vitamin D3) 25 25 mcg PO DAILY vitamin 07/18/20 0 05/18/24 History mcg (1,000 unit) capsule lisinopril 20 mg tablet 20 mg PO DAILY blood pressure 03/0705/18/24 History levothyroxine 137 mcg tablet 137 mcg PO DAILY 11/25/23 05/18/24 History metformin 500 mg tablet,extended 1,000 mg (2 x 500 mg) PO BID 11/2405/18/24 Rx release 24 hr diabetes #360 tabs insulin aspar prot-insulin aspart See Rx Instructions subcut BID #1 8 01/05/24 05/18/24 Rx 100 unit/mL (70-30) subcutaneous mL pen (Novolog Mix 70-30FlexPen U-100) pen needle, diabetic, safety 30 #100 ea 01/05/24 05/18/24 Rx gauge x 1/3 glimepiride 2 mg tablet 2 mg PO BID #180 tabs 04/21/2403/01 Rx insulin NPH-regular 70-30 U-100 See Rx Instructions subcut BID #3 04/26/24 05/18/24 Rx insulin 100 unit/mL subcutaneous mL pen (Novolin 70-30 FlexPen U-100 Insulin) Have you fallen in the past year?: No PFS Medical History Dementia Benign essential hypertension Hypothyroidism (acquired) Diabetes Vision problem Thyroid disease Hearing problem Cataract gallbladder Hernia Hypertension Hypothyroidism Diabetes mellitus Surgical History History of cholecystectomy Family History Other Cancer Social History Smoking Status: Former smoker alcohol intake: current alcohol intake frequency: 0-2 drinks per day substance use type: does not use what type of physical activity do you participate in: walking frequency: daily HPI HPI Chief Complaint: Diabetes Details: JEAN-CLAUDE DOUGLAS, is a 83 M who presents to the office today for follow up. A1C is 11.7% He is taking 70-30 bid All of his blood sugars are over 200. He has cognitive impairment and doesn't understand he needs to do something when his sugars are high. He is taking 22 am and 11 pm I don't really know if he is actually taking his insulin consistently, he does run out of it so he is taking it sometimes. I have asked his to assist him, but she is not interested in doing that. She reports that he isn't having trouble in other areas of his life. ROS Const Constitutional: No fatigue or weight change ENT ENT: No dizziness/vertigo Cardio Cardiology: No chest pain at rest, chest pain with exertion, shortness of breath or palpitations Neuro Neurology: Positive for memory loss Psych Psychiatric: Positive for memory loss Skin Skin: No wounds Endo Endocrine: No fatigue or weight change Exam Const General: cooperative, healthy appearing, comfortable, no acute distress, well developed and not cushingoid Nutritional Appearance: well nourished Orientation: alert, awake and oriented x3 HENMT Head: normal to inspection Ears: hearing grossly normal bilaterally Nose: external nose normal Mouth: oral mucosae normal Eyes General: appearance normal, both eyes and all related structures Alignment and Position: alignment normal Periorbital: periorbital findings normal Eyelids: eyelids normal Conjunctivae: conjunctivae normal Neck Neck: normal visual inspection Neck mass: No Chest Chest palpation inspection: normal inspection of the chest Resp Effort Inspection: normal respiratory effort, able to speak in complete sentences, symmetric chest movement, no audible wheezes and no cough Cardio Rate: regular rate Rhythm: regular rhythm Skin General: no rashes (more content not included)... Normal [facility] HBA1C (OUTSIDE)on 05-18-2024 HbA1c (Bld) [Mass fraction] 11.7 % [facility] Comment on above: Dr Kemp (endo) [facility] Endocrinology Visit Reporton 11-25-2023 Endocrinology Visit Report [facility] [address] [place] [address] OFFICE VISIT Date of Service: 11/25/23 MR#: [id number] Acct: [id number] Name: JEAN-CLAUDE DOUGLAS Rep #: [id number] : 1940 Provider: Betsey Garcia Age/Sex: 83/M [place] [facility] [place] Status: Signed Intake Vital Signs 06/10/23 11:23 11/25/23 09:50 Height 5 ft 10 in 5 ft 10 in Weight: 157 lb 155 lb BMI 22.5 22.2 BP 120/72 126/81 H Blood Pressure Location Rt brachial Lt brachial Position Sitting Sitting Respiration 16 Pulse 87 97 Pulse Source Monitor Monitor Temp 98.6 F Temp Source Temporal Pulse Oximetry (%) 96 94 Oxygen Delivery Method room air room air Intake Visit Reasons: 6 M FU Chief Complaint: Diabetes Senior [employer] Required: No Accompanied by: Is patient in pain?: No Allergies No Known Allergies Allergy (Verified 06/10/23 11:18) Medications ???Medication ???Instructions ???Recorded ???Confirmed ???Type cyanocobalamin (vitamin B-12) 500 1,000 mcg PO DAILY@0800 vitamin 03/17/14 11/25/23 History mcg tablet ferrous sulfate 325 mg (65 mg 325 mg PO DAILY anemia 06/25/20 11/25/23 History iron) tablet lancets 30 gauge and blood glucose ##1 06/27/20 11/25/23 Rx strips combo pack cholecalciferol (vitamin D3) 25 25 mcg PO DAILY vitamin 07/18/20 11/25/23 History mcg (1,000 unit) capsule lisinopril 20 mg tablet 20 mg PO DAILY blood pressure 12/12/22 08/20/24 History pen needle, diabetic, safety 30 #100 ea 10/10/23 11/25/23 Rx gauge x 1/3 glimepiride 2 mg tablet 2 mg PO BID #180 tabs 11/25/23 11/25/23 Rx insulin aspar prot-insulin aspart See Rx Instructions subcut BID #18 11/25/23 11/25/23 Rx 100 unit/mL (70-30) subcutaneous mL pen (Novolog Mix 70-30FlexPen U-100) levothyroxine 137 mcg tablet 137 mcg PO DAILY 11/25/23 11/25/23 History metformin 500 mg tablet,extended 1,000 mg (2 x 500 mg) PO BID 11/25/23 11/25/23 Rx release 24 hr diabetes #360 tabs Have you fallen in the past year?: No PFSH Medical History Dementia Benign essential hypertension Hypothyroidism (acquired) Diabetes Vision problem Thyroid disease Hearing problem Cataract gallbladder Hernia Hypertension Hypothyroidism Diabetes mellitus Surgical History History of cholecystectomy Family History Other Cancer Social History Smoking Status: Former smoker alcohol intake: current alcohol intake frequency: 0-2 drinks per day substance use type: does not use what type of physical activity do you participate in: walking frequency: daily HPI HPI Chief Complaint: Diabetes Details: JEAN-CLAUDE DOUGLAS, is a 83 M who presents to the office today for follow up. A1C is 11.3% He states he is taking pre-mix 20 units am and 8 units pm. He is wearing Shante 2 CGM. Upload shows uncontrolled blood sugars. He is over 300 for days at a time. His came with him to this appointment. Jean-Claude has cognitive impairment. He is very pleasant and states that he will just need to stop eating cookies. It sounds like Mrs. Douglas keeps loose tabs on him and asks him if he has taken his insulin, but she doesn't look at his blood sugars or assist him in management. He has no complaints. ROS Const Constitutional: No anorexia, excessive sweating, malaise, night sweats, weight change or change in appetite Eyes Eyes: No change in vision ENT ENT: No hearing loss, nasal congestion or difficulty swallowing Cardio Cardiology: No chest pain at rest, excessive sweating, shortness of breath, dyspnea on exertion, irregular heart rhythm or palpitations Musc Musculoskeletal: No abnormal gait, joint pain, numbness or tingling Neuro Neurology: Positive for memory loss; No abnormal gait, numbness or tingling Psych Psychiatric: No change in appetite, Positive for memory loss and No Thoughts of harming yourself/Others Resp Respiratory: No cough, chest congestion or shortness of breath Gastro GI: No abdominal pain, constipation, diarrhea or difficulty swallowing Genitourinary Male: No burning urination Skin Skin: No hair loss in leg, itchy eyes, rash or skin ulcer Endo Endocrine: No excessive sweating or weight change Aller/Imm Allergy/Immunologic: No itchy eyes Exam Const General: cooperative, healthy appearing, comfortable, no acute distress, well developed and not cushingoid Nutritional Appearance: well nourished Orientation: alert, awake and oriented x3 HENMT Head: normal to inspection Ears: hearing grossly normal bilaterally Nose: external nose normal (more content not included)... Normal [facility] HBA1C (OUTSIDE)on 11-25-2023 HbA1c (Bld) [Mass fraction] 11.3 % [facility] Comment on above: per endo Dr Kemp [facility] HBA1C (OUTSIDE)on 06-10-2023 HbA1c (Bld) [Mass fraction] 10.5 % [facility] VITAMIN D 25 HYDROXYon 12-23 25-hydroxyvitamin D3 [Mass/Vol] 57.7 ng/mL 31.0 - 80.0 ng/mL [facility] LIPID PANEL (EXTERNAL)on HDC-L 64 mg/dL Abnormal 41 mg/dL [facility] LDL Chol, calculated 42 MG/DL 130 MG/DL [facility] LIPID PANEL (OUTSIDE)on 07-06 Cholesterol in HDL [Mass/Vol] 64 mg/dL [facility] Cholesterol in LDL [Mass/Vol] 42 mg/dL [facility] VLDL Cholesterol 11 [facility] - Chemistry and C hemistry - challengeon 07-17-2022 Cholesterol [Mass/Vol] 117 mg/dL [facility] Triglyceride [Mass/Vol] 56 mg/dL [facility] TSH (EXTERNAL)on 07-17-2022 TSH 2.43 IU/ml 0.2 - 5.6 IU/ml [facility] Absolute lymphocyte countOrd ered By: Dr. Buenrostro on 06-07-2022 Lymphocytes Auto (Unsp spec) [#/Vol] 0.73 10*3/uL 0.83-4.51 [facility] Basophil percentageOrdered B y: Dr. Buenrostro on 06-07-2022 Basophils/100 WBC (Bld) 0.1 % 0-1 [facility] Eosinophils/100 WBC (Bld) 0.9 % 0-5 [facility] Neutrophils (Bld) [#/Vol] 7.2 10*3/uL 2.0-7.7 [facility] Neutrophils/100 WBC (Bld) 81.5 % 47-70 [facility] WBC (Bld) [#/Vol] 8.9 10*3/uL 4.4-11.0 [facility] Blood erythrocytes count (nu mber/volume)Ordered By: Dr. Buenrostro on 06-07-2022 RBC (Bld) [#/Vol] 3.39 10*6/uL 4.6-6.2 [facility] Blood hemoglobin measurement (mass/volume)Ordered By: Dr. Buenrostro on 06-07-2022 Hemoglobin (Bld) [Mass/Vol] 10.2 g/dL 13.0-16.5 [facility] Blood lymphocytes/100 leukoc ytesOrdered By: Dr. Buenrostro on 06-07-2022 Lymphocytes/100 WBC (Bld) 8.2 % 19-41 [facility] Blood monocytes/100 leukocyt esOrdered By: Dr. Buenrostro on 06-07-2022 Monocytes/100 WBC (Bld) 8.3 % 0-10 [facility] Blood platelet mean volumeOr dered By: Dr. Buenrostro on 06-07-2022 Platelet mean volume (Bld) [Entitic vol] 11.2 fL 6.2-12.0 [facility] Determination of erythrocyte mean corpuscular volume (MCV)Ordered By: Dr. Buenrostro on 06-07-2022 MCV (RBC) [Entitic vol] 94.7 fL 80-94 [facility] Glucose Glucometer (BldC) [M ass/Vol]Ordered By: Dr. Buenrostro on 06-07-2022 Glucose [Mass/Vol] 241 mg/dL 74-106 [facility] Comment on above: MANAGEMENT OF PATIEN T CARE PER NURSING PROTOCOL Hematocrit Auto (Bld) [Volum e fraction]Ordered By: Dr. Buenrostro on 06-07-2022 Hematocrit (Bld) [Volume fraction] 32.1 % 40-54 [facility] Laboratory - Hematology and Cell countsOrdered By: Dr. Buenrostro on 06-07-2022 Erythrocyte distribution width (RBC) [Entitic vol] 43.3 fL 35.1-43.9 [facility] Erythrocyte distribution width (RBC) [Ratio] 12.5 % 11.6-14.6 [facility] Immature granulocytes/100 WBC (Bld) 1.000 % 0.0-0.9 [facility] Comment on above: IG% - Immature Granu locytes (promyelocytes, myelocytes and metamyelocytes) > 1% indicates that a LEFT SHIFT is Present. MCH (RBC) [Entitic mass] 30.1 pg 27.0-32.0 [facility] Nucleated RBC/100 WBC (Bld) [Ratio] 0 % 0-5 [facility] MCHC Auto (RBC) [Mass/Vol]Or dered By: Dr. Buenrostro on 06-07-2022 MCHC (RBC) [Mass/Vol] 31.8 g/dL 32-36 [facility] Platelets bldOrdered By: Dr. Buenrostro on 06-07-2022 Platelets (Bld) [#/Vol] 119 10*3/uL 150-450 [facility] Basophil percentageOrdered B y: Dr. Davis on 06-06-2022 Lactate [Moles/Vol] 3.3 mmol/L 0.4-2.0 [facility] Comment on above: Critical Result(s) C alled at: 09:27:30 06/06/2022 by: Dustin Thompson RN PCU. Results read back by same. Chloride [Moles/Vol] 109 mmol/L 98-107 [facility] Glucose [Mass/Vol] 359 mg/dL 74-106 [facility] Comment on above: Glucose result great er than or equal to 200 mg/dLsuggests DIABETES MELLITUS per A.D.A. criteria. Potassium [Moles/Vol] 4.5 mmol/L 3.5-5.1 [facility] Sodium [Moles/Vol] 142 mmol/L 136-145 [facility] Blood manual differential co mment interpretation (narrative result)Ordered By: Dr. Davis on 06-06-2022 Manual differential comment David (Bld) [Interp] SCANNED [facility] Comment on above: LYMPHOPENIA, 1+ BAND S NOTED Culture, urineOrdered By: Dr Magalis Garcia on 06-06-2022 Bacteria identified Cx Nom (U) Positive [facility] - Chemistry and C hemistry - challengeOrdered By: Dr. Davis on 06-06-2022 CO2 [Moles/Vol] 21.0 mmol/L 21.0-32.0 [facility] Urea nitrogen/Creatinine [Mass ratio] 25.7 mg/mg 10-20 [facility] No Panel InformationOrdered By: Dr. Davis on 06-06-2022 Estimated Creatinine Clearance Calc 38.53 ml/min [facility] Estimated GFR (MDRD) Amer 59 mL/min >60 [facility] Comment on above: GFR Calc Estimated GFR (MDRD) Non-Af Amer 49 mL/min >60 [facility] Comment on above: Non- GFR Calc Serum or plasma calcium lio urement (mass/volume)Ordered By: Dr. Davis on 06-06-2022 Calcium [Mass/Vol] 8.3 mg/dL 8.5-10.1 [facility] Serum or plasma creatinine m easurement (mass/volume)Ordered By: Dr. Davis on 06-06-2022 Creatinine [Mass/Vol] 1.48 mg/dL 0.70-1.30 [facility] Comment on above: The validity of the calculated GFR & GFRAA in patients over 70 years has not been determined. Clinical correlation is essential. Serum or plasma urea nitroge n measurement (mass/volume)Ordered By: Dr. Davis on 06-06-2022 Urea nitrogen [Mass/Vol] 38 mg/dL 7-18 [facility] Thin prep Papanicolaou smear with manual screeningOrdered By: Dr. Davis on 06-06-2022 Thin prep Papanicolaou smear with manual screening 12 5-15 [facility] Absolute lymphocyte countOrd ered By: Dr. Garcia on 06-05-2022 Lymphocytes Auto (Unsp spec) [#/Vol] 0.43 10*3/uL 0.83-4.51 [facility] Basophil percentageOrdered B y: Dr. Garcia on 06-05-2022 Basophil percentage 10-25 SEEN /hpf 0-5 [facility] Basophils/100 WBC (Bld) 0.3 % 0-1 [facility] Bilirubin [Mass/Vol] 0.50 mg/dL 0.20-1.00 [facility] Comment on above: For patients on eltr ombopag therapy, use of Dimension [place] TBIL is not recommended. Chloride [Moles/Vol] 110 mmol/L 98-107 [facility] Eosinophils/100 WBC (Bld) 0.2 % 0-5 [facility] Glucose [Mass/Vol] 166 mg/dL 74-106 [facility] Comment on above: Fasting Glucose resu lt greater than or equal to 126 mg/dL suggests DIABETES MELLITUS per A.D.A. criteria. Lactate [Moles/Vol] 2.9 mmol/L 0.4-2.0 [facility] Comment on above: Critical Result(s) C alled at: 18:55:45 06/05/2022 by: Yin Marlow. Results read back by same. Neutrophils (Bld) [#/Vol] 10.8 10*3/uL 2.0-7.7 [facility] Neutrophils/100 WBC (Bld) 93.5 % 47-70 [facility] Potassium [Moles/Vol] 3.4 mmol/L 3.5-5.1 [facility] Protein [Mass/Vol] 6.4 g/dL 6.4-8.2 [facility] Sodium [Moles/Vol] 144 mmol/L 136-145 [facility] WBC (Bld) [#/Vol] 11.6 10*3/uL 4.4-11.0 [facility] Bilirubin Test strip Ql (U)O rdered By: Dr. Garcia on 06-05-2022 Bilirubin Ql (U) Negative Negative [facility] Blood erythrocytes count (nu mber/volume)Ordered By: Dr. Garcia on 06-05-2022 RBC (Bld) [#/Vol] 4.25 10*6/uL 4.6-6.2 [facility] Blood hemoglobin measurement (mass/volume)Ordered By: Dr. Garcia on 06-05-2022 Hemoglobin (Bld) [Mass/Vol] 12.8 g/dL 13.0-16.5 [facility] Blood lymphocytes/100 leukoc ytesOrdered By: Dr. Garcia on 06-05-2022 Lymphocytes/100 WBC (Bld) 3.7 % 19-41 [facility] Blood manual differential co mment interpretation (narrative result)Ordered By: Dr. Garcia on 06-05-2022 Manual differential comment David (Bld) [Interp] SCANNED [facility] Blood monocytes/100 leukocyt esOrdered By: Dr. Garcia on 06-05-2022 Monocytes/100 WBC (Bld) 1.8 % 0-10 [facility] Blood platelet mean volumeOr dered By: Dr. Garcai on 06-05-2022 Platelet mean volume (Bld) [Entitic vol] 10.9 fL 6.2-12.0 [facility] Determination of erythrocyte mean corpuscular volume (MCV)Ordered By: Dr. Garcia on 06-05-2022 MCV (RBC) [Entitic vol] 91.8 fL 80-94 [facility] Hematocrit Auto (Bld) [Volum e fraction]Ordered By: Dr. Garcia on 06-05-2022 Hematocrit (Bld) [Volume fraction] 39.0 % 40-54 [facility] INR in Blood by Coagulation assayOrdered By: Dr. Garcia on 06-05-2022 INR Coag (Bld) [Relative time] 1.1 {INR} [facility] Influenza virus A and B and SARS-CoV-2 (COVID-19) Ag panel - Upper respiratory specimOrdered By: Dr. Garcia on 06-05-2022 SARS-CoV-2 (COVID-19) RNA [place]+probe Ql (Resp) [facility] Ketones Test strip Ql (U)Ord ered By: Dr. Garcia on 06-05-2022 Ketones Ql (U) Negative Negative [facility] Laboratory - Chemistry and C hemistry - challengeOrdered By: Dr. Garcia on 06-05-2022 ALP [Catalytic activity/Vol] 58 U/L 45-117 [facility] ALT [Catalytic activity/Vol] 14 U/L 16-61 [facility] CO2 [Moles/Vol] 27.0 mmol/L 21.0-32.0 [facility] Globulin (S) [Mass/Vol] 3.0 g/dL 2.2-4.2 [facility] Urea nitrogen/Creatinine [Mass ratio] 28.3 mg/mg 10-20 [facility] - CoagulationOrde red By: Dr. Garcia on 06-05-2022 aPTT Coag (Bld) [Time] 25.0 s 24.1-36.2 [facility] PT Coag (PPP) [Time] 13.6 s 11.7-14.9 [facility] Laboratory - Hematology and Cell countsOrdered By: Dr. Garcia on 06-05-2022 Erythrocyte distribution width (RBC) [Entitic vol] 40.7 fL 35.1-43.9 [facility] Erythrocyte distribution width (RBC) [Ratio] 12.1 % 11.6-14.6 [facility] Immature granulocytes/100 WBC (Bld) 0.500 % 0.0-0.9 [facility] Comment on above: IG% - Immature Granu locytes (promyelocytes, myelocytes and metamyelocytes) > 1% indicates that a LEFT SHIFT is Present. MCH (RBC) [Entitic mass] 30.1 pg 27.0-32.0 [facility] Nucleated RBC/100 WBC (Bld) [Ratio] 0 % 0-5 [facility] MCHC Auto (RBC) [Mass/Vol]Or dered By: Dr. Garcia on 06-05-2022 MCHC (RBC) [Mass/Vol] 32.8 g/dL 32-36 [facility] Mucus LM Ql (Urine sed)Order ed By: Dr. Garcia on 06-05-2022 Mucus Ql (Urine sed) 0 SEEN /hpf [facility] Nitrite Test strip Ql (U)Ord ered By: Dr. Garcia on 06-05-2022 Nitrite Ql (U) Negative Negative [facility] No Panel InformationOrdered By: Dr. Garcia on 06-05-2022 Estimated Creatinine Clearance Calc 49.70 ml/min [facility] Estimated GFR (MDRD) Amer 75 mL/min >60 [facility] Comment on above: GFR Calc Estimated GFR (MDRD) Non-Af Amer 62 mL/min >60 [facility] Comment on above: Non- GFR Calc Platelets bldOrdered By: Dr. Garcia on 06-05-2022 Platelets (Bld) [#/Vol] 155 10*3/uL 150-450 [facility] Protein Test strip Ql (U)Ord ered By: Dr. Garcia on 06-05-2022 Protein Ql (U) 30 mg/dl Negative [facility] Serum or plasma albumin lio urement (mass/volume)Ordered By: Dr. Garcia on 06-05-2022 Albumin [Mass/Vol] 3.4 g/dL 3.2-5.0 [facility] Serum or plasma albumin/glob ulin mass ratioOrdered By: Dr. Garcia on 06-05-2022 Albumin/Globulin [Mass ratio] 1.1 {ratio} 0.9-2.4 [facility] Serum or plasma calcium lio urement (mass/volume)Ordered By: Dr. Garcia on 06-05-2022 Calcium [Mass/Vol] 9.3 mg/dL 8.5-10.1 [facility] Serum or plasma creatinine m easurement (mass/volume)Ordered By: Dr. Garcia on 06-05-2022 Creatinine [Mass/Vol] 1.20 mg/dL 0.70-1.30 [facility] Comment on above: The validity of the calculated GFR & GFRAA in patients over 70 years has not been determined. Clinical correlation is essential. Serum or plasma urea nitroge n measurement (mass/volume)Ordered By: Dr. Garcia on 06-05-2022 Urea nitrogen [Mass/Vol] 34 mg/dL 7-18 [facility] Squamous epithelial cells de tection in urine sediment by light microscopyOrdered By: Dr. Garcia on 06-05-2022 Epithelial cells.squamous LM Ql (Urine sed) 0-5 SEEN /hpf 0-5 [facility] Thin prep Papanicolaou smear with manual screeningOrdered By: Dr. Garcia on 06-05-2022 Thin prep Papanicolaou smear with manual screening 11 U/L 15-37 [facility] Thin prep Papanicolaou smear with manual screening 7 5-15 [facility] Urine blood detectionOrdered By: Dr. Garcia on 06-05-2022 RBC Ql (U) 10 /ul Negative [facility] RBC Ql (U) 0 SEEN /hpf 0-5 [facility] Urine clarityOrdered By: Dr. Garcia on 06-05-2022 Clarity (U) Cloudy Clear [facility] Urine color determinationOrd ered By: Dr. Garcia on 06-05-2022 Color (U) Yellow Yellow [facility] Urine glucose detectionOrder ed By: Dr. Garcia on 06-05-2022 Glucose Ql (U) 100 mg/dl Normal [facility] Urine leukocyte esterase det ection by dipstickOrdered By: Dr. Garcia on 06-05-2022 Leukocyte esterase Test strip Ql (U) 500 /ul Negative [facility] Urine pHOrdered By: Dr. Kalli hines on 06-05-2022 pH (U) 6.0 [pH] 5.0 - 8.0 [facility] Urine sediment bacteria coun t by microscopy (number/high power field)Ordered By: Dr. Garcia on 06-05-2022 Bacteria LM.HPF (Urine sed) [#/Area] 2 /[HPF] None Seen [facility] Urine specific gravity measu rementOrdered By: Dr. Garcia on 06-05-2022 Specific gravity (U) [Rel density] 1.010 1.002-1.030 [facility] Urobilinogen Auto test strip Ql (U)Ordered By: Dr. Garcia on 06-05-2022 Urobilinogen Ql (U) Normal mg/dl Normal [facility] - Hematology and Cell countson 03-18-2022 HbA1c (Bld) [Mass fraction] 12.3 % [facility] HBA1C (OUTSIDE)on 12-17-2021 HbA1c (Bld) [Mass fraction] 12.1 % [facility] Vital Signs Date Time Vital Sign Value Performing Clinician Faci lity 11-22-2024 13:31-0400 Body height 177.[address] Kb Lackey MD Work Phone: [facility] 11-22-2024 13:31-0400 Body mass index (BMI) [Ratio] 22.4 kg/m2 Dr. Kb Lackey MD Work Phone: 1(703)451-211040 [place] [address] 11-22-2024 13:31-0400 Body weight 70.[address] Kb Lackey MD Work Phone: 8(101)611-884440 [place] [address] 11-22-2024 13:31-0400 Diastolic blood pressure 65 mm[Hg] Dr. Kb Lackey MD Work Phone: [facility] 11-22-2024 13:31-0400 Heart rate 65 /min Dr. Kb Lackey MD Work Phone: [facility] 11-22-2024 13:31-0400 SaO2% (BldA) [Mass fraction] 95 % Dr. Kb Lackey MD Work Phone: [facility] 11-22-2024 13:31-0400 Systolic blood pressure 111 mm[Hg] Dr. Kb Lackey MD Work Phone: [facility] 09-15-2024 14:15-0400 Body mass index (BMI) [Ratio] 21.67 kg/m2 Kb Lackey MD Work Phone: [facility] 09-15-2024 14:15-0400 Body weight 68.49 kg Kb Lackey MD Work Phone: [facility] 09-15-2024 14:15-0400 Diastolic blood pressure 80 mm[Hg] Kb Lackey MD Work Phone: [facility] 09-15-2024 14:15-0400 Heart rate 76 /min Kb Lackey MD Work Phone: [facility] 09-15-2024 14:15-0400 SaO2% (BldA) [Mass fraction] 98 % Kb Lackey MD Work Phone: [facility] 09-15-2024 14:15-0400 Systolic blood pressure 128 mm[Hg] Kb Lackey MD Work Phone: [facility] 08-03-2024 13:27-0400 Body mass index (BMI) [Ratio] 21.7 kg/m2 Dr. Kb Lackey MD Work Phone: [facility] 08-03-2024 13:27-0400 Body weight 68.49 kg Kb Lackey MD Work Phone: [facility] 08-03-2024 13:27-0400 Diastolic blood pressure 68 mm[Hg] Dr. Kb Lackey MD Work Phone: [facility] 08-03-2024 13:27-0400 Heart rate 59 /min Dr. Kb Lackey MD Work Phone: [facility] 08-03-2024 13:27-0400 SaO2% (BldA) [Mass fraction] 96 % Dr. Kb Lackey MD Work Phone: [facility] 08-03-2024 13:27-0400 Systolic blood pressure 109 mm[Hg] Dr. Kb Lackey MD Work Phone: [facility] 08-03-2024 10:00-0400 Body height 177.8 cm Kb Lackey MD Work Phone: [facility] 08-03-2024 10:00-0400 Body mass index (BMI) [Ratio] 21.67 kg/m2 Kb Lackey MD Work Phone: [facility] 08-03-2024 10:00-0400 Diastolic blood pressure 63 mm[Hg] Kb Lackey MD Work Phone: [facility] 08-03-2024 10:00-0400 Heart rate 68 /min Kb Lackey MD Work Phone: [facility] 08-03-2024 10:00-0400 Systolic blood pressure 113 mm[Hg] Kb Lackey MD Work Phone: [facility] 07-28-2024 12:26-0400 Heart rate 83 /min Dr. Kb Lackey MD Work Phone: [facility] 07-28-2024 11:13-0400 Body temperature 98.1 [degF] Dr. Kb Lackey MD Work Phone: [facility] 07-28-2024 11:13-0400 Diastolic blood pressure 52 mm[Hg] Dr. Kb Lackey MD Work Phone: [facility] 07-28-2024 11:13-0400 Respiratory rate 16 /min Dr. Kb Lackey MD Work Phone: [facility] 07-28-2024 11:13-0400 SaO2% (BldA) [Mass fraction] 98 % Dr. Kb Lackey MD Work Phone: [facility] 07-28-2024 11:13-0400 Systolic blood pressure 99 mm[Hg] Dr. Kb Lackey MD Work Phone: [facility] 07-28-2024 06:00-0400 Body mass index (BMI) [Ratio] 21.4 kg/m2 Dr. Kb Lackey MD Work Phone: [facility] 07-28-2024 06:00-0400 Body weight 67.[address] Kb Lackey MD Work Phone: [facility] 01-28-2024 09:12-0400 Body height 177.8 cm Kb Lackey MD Work Phone: [facility] 01-28-2024 09:12-0400 Body mass index (BMI) [Ratio] 22.97 kg/m2 Kb Lackey MD Work Phone: [facility] 01-28-2024 09:12-0400 Body temperature 98.2 [degF] Kb Lackey MD Work Phone: [facility] 01-28-2024 09:12-0400 Body weight 72.6 kg Kb Lackey MD Work Phone: [facility] 01-28-2024 09:12-0400 Diastolic blood pressure 70 mm[Hg] Kb Lackey MD Work Phone: [facility] 01-28-2024 09:12-0400 Heart rate 66 /min Kb Lackey MD Work Phone: [facility] 01-28-2024 09:12-0400 Respiratory rate 12 /min Kb Lackey MD Work Phone: [facility] 01-28-2024 09:12-0400 SaO2% (BldA) [Mass fraction] 99 % Kb Laceky MD Work Phone: [facility] 01-28-2024 09:12-0400 Systolic blood pressure 132 mm[Hg] Kb Lackey MD Work Phone: [facility] 07-26-2023 10:00-0400 Diastolic blood pressure 76 mm[Hg] Kb Lackey MD Work Phone: [facility] 07-26-2023 10:00-0400 Systolic blood pressure 134 mm[Hg] Kb Lackey MD Work Phone: [facility] 07-26-2023 09:26-0400 Body height 177.8 cm Kb Lackey MD Work Phone: [facility] 07-26-2023 09:26-0400 Body weight 70.31 kg Kb Lackey MD Work Phone: [facility] 07-26-2023 09:26-0400 Heart rate 74 /min Kb Lackey MD Work Phone: [facility] 01-27-2023 10:06-0400 Diastolic blood pressure 78 mm[Hg] Mi Nurse Work Phone: [facility] 01-27-2023 10:06-0400 Heart rate 70 /min Mi Nurse Work Phone: [facility] 01-27-2023 10:06-0400 Respiratory rate 18 /min Mi Nurse Work Phone: [facility] 01-27-2023 10:06-0400 Systolic blood pressure 120 mm[Hg] Mi Nurse Work Phone: [facility] 12-23-2022 13:14-0400 Body weight 69.85 kg Kb Lackey MD Work Phone: [facility] 12-23-2022 13:14-0400 Diastolic blood pressure 82 mm[Hg] Kb Lackey MD Work Phone: [facility] 12-23-2022 13:14-0400 Heart rate 52 /min Kb Lackey MD Work Phone: [facility] 12-23-2022 13:14-0400 SaO2% (BldA) [Mass fraction] 99 % Kb Lackey MD Work Phone: [facility] 12-23-2022 13:14-0400 Systolic blood pressure 142 mm[Hg] Kb Lackey MD Work Phone: [facility] 06-17-2022 10:16-0400 Body weight 69.85 kg Kb Lackey MD Work Phone: [facility] 06-17-2022 10:16-0400 Diastolic blood pressure 70 mm[Hg] Kb Lackey MD Work Phone: [facility] 06-17-2022 10:16-0400 Heart rate 64 /min Kb Lackey MD Work Phone: [facility] 06-17-2022 10:16-0400 Systolic blood pressure 122 mm[Hg] Kb Lackey MD Work Phone: [facility] 06-07-2022 16:32-0500 Body temperature 98.1 [degF] Dr. Kb Lackey Work Phone: [facility] 06-07-2022 16:32-0500 Diastolic blood pressure 56 mm[Hg] Dr. Kb Lackey Work Phone: [facility] 06-07-2022 16:32-0500 Heart rate 72 /min Dr. Kb Lackey Work Phone: 3(860)551-056140 [place] [address] 06-07-2022 16:32-0500 Respiratory rate 18 /min Dr. Kb Lackey Work Phone: 2(505)281-956493 [place] [address] 06-07-2022 16:32-0500 SaO2% (BldA) [Mass fraction] 94 % Dr. Kb Lackey Work Phone: 3(195)146-153093 [place] [address] 06-07-2022 16:32-0500 Systolic blood pressure 94 mm[Hg] Dr. Kb Lackey Work Phone: 1(125)111-899393 [place] [address] 06-06-2022 14:58-0500 Body height 177.[address] Kb Lackey Work Phone: 5(205)424-159593 [place] [address] 06-06-2022 14:58-0500 Body weight 67.[address] Kb Lackey Work Phone: 3(500)397-648193 [place] [address] 06-05-2022 23:19-0500 Body mass index (BMI) [Ratio] 21.2 kg/m2 Dr. Kb Lackey Work Phone: 8(738)761-969893 [place] [address] 06-05-2022 22:37-0500 Body temperature 99.5 [degF] Dr. Kb Lackey Work Phone: 9(091)020-562793 [place] [address] 06-05-2022 22:37-0500 Diastolic blood pressure 60 mm[Hg] Dr. Kb Lackey Work Phone: 6(220)896-377493 [place] [address] 06-05-2022 22:37-0500 Heart rate 107 /min Dr. Kb Lackey Work Phone: 9(339)046-651493 [place] [address] 06-05-2022 22:37-0500 Respiratory rate 16 /min Dr. Kb Lackey Work Phone: 6(009)666-292193 [place] [address] 06-05-2022 22:37-0500 SaO2% (BldA) [Mass fraction] 94 % Dr. Kb Lackey Work Phone: 7(049)379-750293 [place] [address] 06-05-2022 22:37-0500 Systolic blood pressure 100 mm[Hg] Dr. Kb Lackey Work Phone: 0(469)471-125193 [place] [address] 06-05-2022 18:27-0500 Body mass index (BMI) [Ratio] 22.2 kg/m2 Dr. Kb Lackey Work Phone: 2(049)561-725293 [place] [address] 06-05-2022 18:27-0500 Body weight 70.[address] Kb Lackey Work Phone: 0(293)621-358193 [place] [address] 06-05-2022 16:31-0500 Body height 177.[address] Kb Lackey Work Phone: 1(556)936-028093 [place] [address] 05-07-2022 08:50-0500 Body mass index (BMI) [Ratio] 21.4 kg/m2 Dr. Kb Lcakey Work Phone: 4(393)619-890393 [place] [address] 05-07-2022 08:50-0500 Body temperature 95.4 [degF] Dr. Kb Lackey Work Phone: 2(208)847-064593 [place] [address] 05-07-2022 08:50-0500 Body weight 67.[address] Kb Lackey Work Phone: 0(587)944-475493 [place] [address] 05-07-2022 08:50-0500 Diastolic blood pressure 79 mm[Hg] Dr. Kb Lackey Work Phone: 8(870)290-876793 [place] [address] 05-07-2022 08:50-0500 Heart rate 65 /min Dr. Kb Lackey Work Phone: 4(992)104-081993 [place] [address] 05-07-2022 08:50-0500 Respiratory rate 18 /min Dr. Kb Lackey Work Phone: 4(795)439-547793 [place] [address] 05-07-2022 08:50-0500 SaO2% (BldA) [Mass fraction] 94 % Dr. Kb Lackey Work Phone: 5(670)846-511293 [place] [address] 05-07-2022 08:50-0500 Systolic blood pressure 146 mm[Hg] Dr. Kb Lackey Work Phone: 0(392)786-549393 [place] [address] 03-18-2022 08:24-0500 Body mass index (BMI) [Ratio] 20.9 kg/m2 Dr. Kb Lackey Work Phone: 8(671)282-120193 [place] [address] 03-18-2022 08:24-0500 Body temperature 96.4 [degF] Dr. Kb Lackey Work Phone: [facility] 03-18-2022 08:24-0500 Body weight 66.[address] Kb Lackey Work Phone: [facility] 03-18-2022 08:24-0500 Diastolic blood pressure 75 mm[Hg] Dr. Kb Lackey Work Phone: [facility] 03-18-2022 08:24-0500 Heart rate 67 /min Dr. Kb Lackey Work Phone: [facility] 03-18-2022 08:24-0500 Respiratory rate 18 /min Dr. Kb Lackey Work Phone: [facility] 03-18-2022 08:24-0500 SaO2% (BldA) [Mass fraction] 97 % Dr. Kb Lackey Work Phone: [facility] 03-18-2022 08:24-0500 Systolic blood pressure 119 mm[Hg] Dr. Kb Lackey Work Phone: [facility] 12-18-2021 15:52-0400 Body height 177.8 cm Kb Lackey MD Work Phone: [facility] 12-18-2021 15:52-0400 Body weight 64.5 kg Kb Lackey MD Work Phone: [facility] 12-18-2021 15:52-0400 Diastolic blood pressure 70 mm[Hg] Kb Lackey MD Work Phone: [facility] 12-18-2021 15:52-0400 Heart rate 48 /min Kb Lackey MD Work Phone: [facility] 12-18-2021 15:52-0400 SaO2% (BldA) [Mass fraction] 92 % Kb Lackey MD Work Phone: [facility] 12-18-2021 15:52-0400 Systolic blood pressure 120 mm[Hg] Kb Lackey MD Work Phone: [facility] Encounters Encounter Date Encounter Type Care Provider Facility Start: 12-03-2024 End: 12-03-2024 ambulatory Kb Lackey MD Work Phone: [facility] Comment on above: Allied Health Visit (Medication Adherence Outreach ) Refill Request Start: 11-22-2024 End: 11-22-2024 Chart abstracting Kb Lackey MD Work Phone: [facility] [place] Start: 11-22-2024 End: 11-22-[address] Salvador Kemp MD -[facility] Work Phone: Start: 11-22-2024 End: 11-22-[address] Kb Lackey MD Work Phone: -[facility] Start: 11-20-2024 End: 11-22-2024 Refill Kb Lackey MD Work Phone: [facility] [place] Comment on above: Refill Request Start: 09-16-2024 End: 09-17-2024 Follow-up encounter Kb Lackey MD Work Phone: Pul[facility]ology [facility] Start: 09-15-2024 End: 09-15-2024 ambulatory KB LACKEY Facility:[facility] Start: 09-15-2024 End: 09-15-2024 Patient encounter procedure Kb Lackey MD Work Phone: [facility] [place] Comment on above: Anemia, unspecified type (Primary Dx); Microscopic hematuria; Type 2 diabetes mellitus with stage 3a chronic kidney disease, without long-term current use of insulin (HCC); Essential hypertension, benign; Vitamin B12 deficiency; Hypothyroidism, acquired Start: 09-15-2024 End: 09-15-2024 ambulatory KB LACKEY Facility:[facility] Start: 08-19-2024 End: 08-19-2024 ambulatory Chachomariya Zepedago [facility] Work Phone: [facility] Start: 08-19-2024 End: 08-19-2024 Patient encounter procedure Chachomariya Zepedago [facility] Work Phone: [facility] Start: 08-09-2024 End: 08-09-2024 Telephone encounter Kb Lackey MD Work Phone: [facility] Comment on above: Results Start: 08-06-2024 End: 08-06-2024 ambulatory KB LACKEY Facility:[facility] Start: 08-03-2024 End: 08-03-2024 ambulatory [facility] [place] Start: 08-03-2024 End: 08-03-2024 Patient encounter procedure Kb Lackey MD Work Phone: [facility] Comment on above: Urinary tract infect ion with hematuria, site unspecified (Primary Dx); Type 2 diabetes mellitus with stage 3a chronic kidney disease, without long-term current use of insulin (HCC); Hypothyroidism, unspecified type; Vitamin B12 deficiency; Iron deficiency anemia, unspecified iron deficiency anemia type; Renal insufficiency; Hypoglycemia; Anemia, unspecified type Start: 08-03-2024 End: 08-03-2024 [facility] Start: 07-28-2024 Non-patient / Non-visit Dr. Curt Buenrostro DO [facility] Work Phone: Start: 07-27-2024 Non-patient / Non-visit Dr. Curt Buenrostro DO [facility] Work Phone: Start: 07-26-2024 ambulatory [facility] Facility:[facility] Start: 07-26-2024 End: 07-28-2024 Evaluation and management of inpatient Dr. Dennys Buenrostro DO -[facility] Work Phone: Start: 07-09-2024 End: 07-09-2024 ambulatory Kb Lackey MD Work Phone: [facility] Start: 07-09-2024 End: 07-09-2024 Patient encounter procedure Kb Lackey MD Work Phone: [facility] Comment on above: Population Health Na vigation Outreach (Edna Virk ) Start: 06-22-2024 End: 06-22-2024 ambulatory [facility] [place] Start: 05-29-2024 End: 05-31-2024 Refill Kb Lackey MD Work Phone: [facility] Comment on above: Refill Request Start: 05-19-2024 End: 05-19-2024 Chart abstracting Kb Lackey MD Work Phone: [facility] Start: 05-18-2024 End: 05-18-2024 ambulatory Salvador Justo [place] Start: 03-05-2024 End: 03-05-2024 ambulatory Kianna Barnett RN Work Phone: [facility] Comment on above: community monitoring (CDM telephonic/) Start: 02-05-2024 End: 02-05-2024 ambulatory Kianna Barnett RN Work Phone: [facility] Comment on above: community monitoring (CDM telephonic/) Start: 01-29-2024 End: 01-29-2024 Telephone encounter Kb Lackey MD Work Phone: [facility] Comment on above: Results Start: 01-28-2024 End: 01-28-2024 Patient encounter procedure Kb Lackey MD Work Phone: [facility] [place] Comment on above: Essential hypertensi on, benign (Primary Dx); Vitamin B12 deficiency; Chronic renal insufficiency, stage 3 (moderate) (HCC); Hypothyroidism, unspecified type; Type 2 diabetes mellitus without complication, without long-term current use of insulin (HCC); Iron deficiency anemia, unspecified iron deficiency anemia type; Vitamin D deficiency; Encounter for immunization Start: 01-08-2024 End: 01-08-2024 ambulatory Kianna Barnett RN Work Phone: [facility] Comment on above: community monitoring (CDM telephonic/) Start: 12-17-2023 End: 12-17-2023 Refill Kb Lackey MD Work Phone: [facility] [place] Comment on above: Refill Request Start: 12-11-2023 End: 12-11-2023 ambulatory Kianna Barnett RN Work Phone: [facility] Comment on above: community monitoring (CDM telephonic/) Start: 11-28-2023 End: 11-28-2023 Refill Kb Lackey MD Work Phone: [facility] Comment on above: Refill Request Start: 11-26-2023 End: 11-26-2023 Chart abstracting Kb Lackey MD Work Phone: [facility] [place] Start: 11-25-2023 End: 11-25-2023 ambulatory Salvador Justo Facility:[facility] Start: 11-13-2023 ambulatory Kianna mejias RN Work Phone: [facility] Comment on above: community monitoring (CDM telephonic/) Start: 09-18-2023 ambulatory Kianna mejias RN Work Phone: [facility] Comment on above: community monitoring (CDM telephonic/) Start: 09-02-2023 Telephone encounter Kb Lackey MD Work Phone: [facility] [place] Comment on above: Consult Start: 08-26-2023 Telephone encounter Jeni Graham APRN.[employer] Work Phone: [facility] [place] Comment on above: Appointment (Infecti ous Diseases Dr Didier Man @ [facility] on 09/01 next week /) Start: 08-25-2023 Telephone encounter Jeni Graham APRN.[employer] Work Phone: [facility] Comment on above: Appointment Start: 08-21-2023 ambulatory Kianna mejias RN Work Phone: [facility] Comment on above: COMMUNITY MONITORING (CDM telephonic/) Start: 07-28-2023 Telephone encounter Kb Lackey MD Work Phone: [facility] [place] Comment on above: Results Start: 07-26-2023 End: 07-26-2023 Patient encounter procedure Kb Lackey MD Work Phone: [facility] Comment on above: Essential hypertensi on, benign (Primary Dx); Tremor; Chronic renal insufficiency, stage 3 (moderate) (HCC); Type 2 diabetes mellitus without complication, without long-term current use of insulin (HCC); Hypothyroidism, unspecified type; Vitamin D deficiency; Iron deficiency anemia, unspecified iron deficiency anemia type; Renal insufficiency Start: 07-24-2023 ambulatory Kianna mejias RN Work Phone: [facility] Comment on above: community monitoring (CDM telephonic/) Start: 06-26-2023 Refill Kb Lackey MD Work Phone: [facility] Comment on above: Refill Request community monitoring (CDM telephonic/) Start: 06-11-2023 Chart abstracting Kb Cleveland MD Work Phone: [facility] Start: 03-03-2023 ambulatory Kianna mejias RN Work Phone: [facility] Comment on above: community monitoring (CDM telephonic/) Start: 01-27-2023 End: 01-27-2023 Nursing evaluation of patient and report Mi Nurse Work Phone: [facility] Comment on above: Essential hypertensi on, benign (Primary Dx) Start: 01-10-2023 ambulatory Kianna mejias RN Work Phone: [facility] Comment on above: community monitoring (CDM telephonic/) Start: 12-24-2022 Telephone encounter Kb Lackey MD Work Phone: [facility] Comment on above: Results Start: 12-23-2022 End: 12-23-2022 Patient encounter procedure Kb Lackey MD Work Phone: [facility] Comment on above: Type 2 diabetes jordan itus without complication, without long- term current use of insulin (HCC) (Primary Dx); Essential hypertension, benign; Chronic renal insufficiency, stage 3 (moderate) (HCC); Vitamin B12 deficiency; Tremor; Vitamin D deficiency Start: 12-13-2022 ambulatory Kianna mejias RN Work Phone: [facility] Comment on above: community monitoring (CDM telephonic/) Refill Request Start: 11-15-2022 ambulatory Kianna mejias RN Work Phone: [facility] Comment on above: community monitoring Start: 10-18-2022 ambulatory Kianna mejias RN Work Phone: [facility] Comment on above: community monitoring (CDM telephonic/) Start: 09-20-2022 ambulatory Maribelllina Titus R N Work Phone: [facility] Comment on above: CDM (Check in call/) Start: 07-25-2022 ambulatory Maribelllina Titus R N Work Phone: [facility] Comment on above: CDM (Check in call/) Start: 07-17-2022 Chart abstracting Kb Cleveland MD Work Phone: [facility] Start: 07-16-2022 ambulatory Kb Lackey MD Work Phone: [facility] [place] Start: 07-02-2022 Telephone encounter Kb Lackey MD Work Phone: [facility] Comment on above: Results Start: 06-26-2022 ambulatory Maribell Titus R N Work Phone: [facility] Comment on above: CDM (Check in call/) Start: 06-17-2022 End: 06-17-2022 Patient encounter procedure Kb Lackey MD Work Phone: [facility] Comment on above: Sepsis, due to unspe cified organism, unspecified whether acute organ dysfunction present (HCC) (Primary Dx); Dehydration; Essential hypertension, benign; Hypothyroidism, unspecified type; Type 2 diabetes mellitus without complication, without long-term current use of insulin (HCC) Start: 06-12-2022 Telephone encounter Kb Lackey MD Work Phone: [facility] Comment on above: Patient Update Start: 06-10-2022 Patient Outreach Kb bravo MD Work Phone: [facility] Comment on above: Transition Of Care Start: 06-06-2022 Non-patient / Non-visit Dr. Domenico Lackey Work Phone: [facility] Start: 06-06-2022 ambulatory Maribell Titus R N Work Phone: [facility] Comment on above: CDM (Check in call/) Start: 06-05-2022 Non-patient / Non-visit Dr. Domenico Lackey Work Phone: [facility] Start: 06-05-2022 End: 06-07-2022 Evaluation and management of inpatient Dr. Kb Lackey Work Phone: [facility] Start: 05-08-2022 ambulatory Maribell Danielson Work Phone: [facility] Comment on above: CDM (Check in call/) Start: 05-07-2022 End: 05-07-[address] Kb Lackey Work Phone: [facility] Start: 04-25-2022 Refill Kb Lackey MD Work Phone: [facility] Comment on above: Refill Request Start: 04-10-2022 ambulatory Maribell Danielson Work Phone: [employer] Comment on above: CDM (Check in call/) Start: 03-18-2022 End: 03-18-[address] Kb Lackey Work Phone: [facility] Start: 03-12-2022 ambulatory Maribell Danielson Work Phone: [employer] Comment on above: CDM (Check in call/) Start: 02-07-2022 Refill Kb Lackey MD Work Phone: [facility] Comment on above: Refill Request Start: 02-04-2022 Telephone encounter Kb Lackey MD Work Phone: [facility] Comment on above: Results Start: 01-11-2022 ambulatory Maribell Danielson Work Phone: [employer] Comment on above: Community Monitoring Outreach (inSight check in call/) Start: 01-02-2022 Chart abstracting Kb Cleveland MD Work Phone: [facility] Start: 12-19-2021 Telephone encounter Kb Lackey MD Work Phone: [facility] Comment on above: Results Start: 12-18-2021 End: 12-18-2021 Patient encounter procedure Kb Lackey MD Work Phone: [facility] Comment on above: Hypothyroidism, unsp ecified type (Primary Dx); Essential hypertension, benign; Type 2 diabetes mellitus without complication, without long-term current use of insulin (HCC) Start: 12-13-2021 ambulatory Maribell Delong N Work Phone: [employer] Comment on above: community monitoring outreach (inSight enrollment with [facility] introduction/) Start: 12-05-2021 ambulatory Maribell Titus R N Work Phone: [employer] Comment on above: community monitoring outreach ([facility]Sight enrollment with [facility] introduction/) Procedures Date Procedure Procedure Detail Performing Clinician Start: 11-22-2024 Hemoglobin A1c/Hemoglobin.total in Blood [facility] Provider Start: 07-28-[address] Kb Lackey MD Work Phone: Start: 07-28-2024 Serum inorganic phos phate measurement Dr. Kb Lackey MD Work Phone: Start: 07-26-2024 Methadone measuremen t, urine Dr. Kb Lackey MD Work Phone: Start: 07-26-2024 Urnls dip stick/tabl et reagent auto microscopy Dr. Kb Lackey MD Work Phone: Start: 07-26-2024 Plain chest X-ray Dr. Bruno Lackey MD Work Phone: Start: 07-26-2024 Total iron binding capacity measurement Dr. Kb Lackey MD Work Phone: Start: 07-26-2024 CT of head without contrast Dr. Kb Lackey MD Work Phone: Start: 07-26-2024 SARS-CoV-2, Influenz a & RSV (PCR) Dr. Kb Lackey MD Work Phone: Start: 05-18-2024 Hemoglobin A1c/Hemoglobin.total in Blood Salvador Kemp MD Work Phone: Start: 11-25-2023 Hemoglobin A1c/Hemoglobin.total in Blood [facility] Provider Start: 07-26-2023 Adult depression scr eening assessment Kianna Reednury RN Work Phone: Start: 06-10-2023 Hemoglobin A1c/Hemoglobin.total in Blood [facility] Provider Start: 07-17-2022 Lipid panel Salvador ayp MD Work Phone: Start: 07-17-2022 Thyrotropin [Units/v olume] in Serum or Plasma Salvador Kemp MD Work Phone: Start: 06-05-2022 Plain chest X-ray Dr. Bruno Lackey Work Phone: Start: 03-18-2022 Hemoglobin A1c/Hemoglobin.total in Blood [facility] Provider Start: 12-18-2021 Adult depression scr eening assessment Kb Lackey MD Work Phone: Start: 12-17-2021 Hemoglobin A1c/Hemoglobin.total in Blood Bonifaciojessica Fung CNP Work Phone: Start: 10-29-2018 Adult depression scr eening assessment Maribell Titus RN Work Phone: SARS-CoV-2 & FLU Ant igen (Rapid) Dr. Kb Lackey Work Phone: Urine culture Dr. Kb Cleveland Work Phone: Plan of Treatment Date Care Activity Detail Author Start: 03-19-2025 End: 03-19-2025 Patient encounter procedure 03/19/2025 11:20 AM EST Office Visit [facility] [address] [place] [id number] Kb Lackey MD [address] [place] [phone] [facility] Comment on above: Physical Start: 02-22-2025 Hemoglobin A1c measurement HbA1C [facility] Start: 01-27-2025 Covid-19 Vaccine ( season) Covid-19 Vaccine ( season) [facility] Comment on above: Postponed from 12/06 (Declined at this time) Start: 01-27-2025 Shingrix Vaccine (2 of 3) Valenzuela grix Vaccine (2 of 3) [facility] Comment on above: Postponed from 01/16 (Declined at this time) Start: 12-06-2024 Influenza vaccination [facility] Start: 11-23-2024 End: 11-23-2024 Patient encounter procedure Urology Comment on above: Microscopic hematuri a CONSULT: Microscopic hematuria. PCP Referred. [facility] Start: 10-04-2024 Influenza vaccination Influenza Vacc ine (#1) [facility] Comment on above: Postponed from 12/06 (Declined at this time) Start: 09-15-2024 End: 09-15-2024 Patient encounter procedure 09/15/2024 2:20 PM EDT Office Visit [facility] [address] [place], [place] [phone] Kb Lackey MD [address] [place], [place] [phone] 6 week follow up [facility] Comment on above: 6 week follow up Start: 09-15-2024 End: 12-15-2024 Thyrotropin [Units/volume] in Serum or Plasma [facility] Work Phone: Comment on above: Expected: 09/15/2024 , Expires: 12/15/2024 Start: 08-15-2024 Hemoglobin A1c measurement HbA1C [facility] Start: 08-09-2024 End: 11-08-2024 CBC W Auto Differential panel - Blood COMPLETE BLOOD COUNT AND DIFFERENTIAL Lab Routine Anemia, unspecified type Expected: 08/09/2024, Expires: 11/08/2024 [facility] Comment on above: Expected: 08/09/2024 , Expires: 11/08/2024 Start: 08-09-2024 End: 11-08-2024 Ferritin [Mass/volume] in Serum or Plasma FERRITIN Lab Routine Anemia, unspecified type Expected: 08/09/2024, Expires: 11/08/2024 [facility] Comment on above: Expected: 08/09/2024 , Expires: 11/08/2024 Start: 08-09-2024 End: 11-08-2024 Iron and Iron binding capacity panel - Serum or Plasma IRON AND TIBC Lab Routine Anemia, unspecified type Expected: 08/09/2024, Expires: 11/08/2024 [facility] Comment on above: Expected: 08/09/2024 , Expires: 11/08/2024 Start: 08-06-2024 End: 11-05-2024 Bacteria identified in Urine by Culture BACTERIAL CULTURE, URINE Microbiology Routine Urinary tract infection with hematuria, site unspecified Expected: 08/06/2024, Expires: 11/05/2024 [facility] Comment on above: Expected: 08/06/2024 , Expires: 11/05/2024 Start: 08-06-2024 End: 11-05-2024 Basic metabolic 2000 panel - Serum or Plasma BASIC METABOLIC PANEL Lab Routine Renal insufficiency Anemia, unspecified type Expected: 08/06/2024, Expires: 11/05/2024 [facility] Comment on above: Expected: 08/06/2024 , Expires: 11/05/2024 Start: 08-06-2024 End: 08-03-2025 CBC W Auto Differential panel - Blood COMPLETE BLOOD COUNT AND DIFFERENTIAL Lab Routine Anemia, unspecified type Expected: 08/06/2024, Expires: 08/03/2025 [facility] Work Phone: Comment on above: Expected: 08/06/2024 , Expires: 08/03/2025 Start: 08-06-2024 End: 08-03-2025 Cobalamin (Vitamin B12) [Mass/volume] in Serum or Plasma VITAMIN B12 Lab Routine Vitamin B12 deficiency Anemia, unspecified type Expected: 08/06/2024, Expires: 08/03/2025 [facility] Comment on above: Expected: 08/06/2024 , Expires: 08/03/2025 Start: 08-06-2024 End: 08-03-2025 Ferritin [Mass/volume] in Serum or Plasma FERRITIN Lab Routine Iron deficiency anemia, unspecified iron deficiency anemia type Anemia, unspecified type Expected: 08/06/2024, Expires: 08/03/2025 [facility] Comment on above: Expected: 08/06/2024 , Expires: 08/03/2025 Start: 08-06-2024 End: 08-03-2025 Folate [Mass/volume] in Serum or Plasma FOLATE, SERUM Lab Routine Vitamin B12 deficiency Anemia, unspecified type Expected: 08/06/2024, Expires: 08/03/2025 [facility] Comment on above: Expected: 08/06/2024 , Expires: 08/03/2025 Start: 08-06-2024 End: 08-03-2025 Iron and Iron binding capacity panel - Serum or Plasma IRON AND TIBC Lab Routine Iron deficiency anemia, unspecified iron deficiency anemia type Anemia, unspecified type Expected: 08/06/2024, Expires: 08/03/2025 [facility] Comment on above: Expected: 08/06/2024 , Expires: 08/03/2025 Start: 08-06-2024 End: 11-05-2024 Urinalysis complete panel - Urine URINALYSIS, WITH MICROSCOPIC Lab Routine Urinary tract infection with hematuria, site unspecified Expected: 08/06/2024, Expires: 11/05/2024 [facility] Comment on above: Expected: 08/06/2024 , Expires: 11/05/2024 Start: 08-02-2024 End: 08-02-2024 Patient encounter procedure 08/02/2024 10:20 AM EDT Office Visit [facility] [address] [place] [address] Kb Lackey MD [address] [place] [address] 6 month follow up [facility] Comment on above: 6 month follow up Start: 07-28-2024 Patient discharge [facility] Start: 07-27-2024 [facility] Start: 07-26-2024 Application of intermittent pneumatic compression device [facility] Start: 07-26-2024 Following clinical pathway protocol [facility] Start: 07-26-2024 Assessment of risk o f venous thromboembolism [facility] Start: 07-26-2024 Care regimes management [facility] Start: 07-26-2024 Incentive spirometry [facility] Start: 07-26-2024 Insertion of cathete r into peripheral vein [facility] Start: 07-26-2024 Measuring intake and output [facility] Start: 07-26-2024 Notification of physician [facility] Start: 07-26-2024 Oxygen therapy [facility] Start: 07-26-2024 Providing care accor ding to standard [facility] Start: 07-26-2024 Provision of activit y privileges [facility] Start: 07-26-2024 Referral to service [facility] Start: 07-26-2024 End: 07-26-2024 [facility] Start: 07-26-2024 Admission procedure [facility] Start: 07-26-2024 [facility] Start: 07-26-2024 Patient referral to dietitian [facility] Start: 07-25-2024 Annual PCP Team Spout Worker levi Disease Visit Annual PCP Team Chronic Disease Visit [facility] Start: 07-25-2024 Anxiety Screening Anxiety Screening [facility] Start: 07-25-2024 Creatinine measurement Serum Creatin ine [facility] Start: 07-25-2024 Depression Screening Depression Scre ening [facility] Start: 07-25-2024 Diabetic foot examination Diabetic F oot Exam [facility] Start: 07-25-2024 RSV Vaccine (1 - 1-d ose 60+ series) RSV Vaccine (1 - 1-dose 60+ series) [facility] Comment on above: Postponed from 11/18 (Declined at this time) Start: 07-25-2024 RSV Vaccine (1 - 1-d ose 75+ series) RSV Vaccine (1 - 1-dose 75+ series) [facility] Comment on above: Postponed from 11/18 (Declined at this time) Start: 07-09-2024 End: 10-08-2024 Basic metabolic 2000 panel - Serum or Plasma BASIC METABOLIC PANEL Lab Routine Type 2 diabetes mellitus with stage 3a chronic kidney disease, without long-term current use of insulin (HCC) Expected: 07/09/2024, Expires: 10/08/2024 [facility] Work Phone: Comment on above: Expected: 07/09/2024 , Expires: 10/08/2024 Start: 07-09-2024 End: 10-08-2024 Microalbumin/Creatinine [Mass Ratio] in Urine ALBUMIN/CREATININE RATIO, URINE Lab Routine Type 2 diabetes mellitus with stage 3a chronic kidney disease, without long-term current use of insulin (HCC) Expected: 07/09/2024, Expires: 10/08/2024 [facility] Comment on above: Expected: 07/09/2024 , Expires: 10/08/2024 Start: 06-10-2024 Creatinine measurement Serum Creatin ine [facility] Start: 06-10-2024 Hepatitis B screening Urine Albumin:Creatinine Ratio [facility] Start: 06-10-2024 Hepatitis B surface antibody level LDL Cholesterol [facility] Start: 04-07-2024 Advance Directive Discussion Advance Directive Discussion [facility] Start: 04-07-2024 Medicare Advantage A nnual Wellness Visit Medicare Advantage Annual Wellness Visit [facility] Start: 02-25-2024 Hemoglobin A1c measurement HbA1C [facility] Start: 01-29-2024 End: 04-29-2024 Basic metabolic 2000 panel - Serum or Plasma BASIC METABOLIC PANEL Lab Routine Vitamin B12 deficiency Chronic renal insufficiency, stage 3 (moderate) (HCC) Iron deficiency anemia, unspecified iron deficiency anemia type Expected: 01/29/2024, Expires: 04/29/2024 [facility] Comment on above: Expected: 01/29/2024 , Expires: 04/29/2024 Start: 01-29-2024 End: 04-29-2024 CBC W Auto Differential panel - Blood COMPLETE BLOOD COUNT AND DIFFERENTIAL Lab Routine Vitamin B12 deficiency Chronic renal insufficiency, stage 3 (moderate) (HCC) Iron deficiency anemia, unspecified iron deficiency anemia type Expected: 01/29/2024, Expires: 04/29/2024 [facility] Work Phone: Comment on above: Expected: 01/29/2024 , Expires: 04/29/2024 Start: 01-29-2024 End: 04-29-2024 Ferritin [Mass/volume] in Serum or Plasma FERRITIN Lab Routine Vitamin B12 deficiency Chronic renal insufficiency, stage 3 (moderate) (HCC) Iron deficiency anemia, unspecified iron deficiency anemia type Expected: 01/29/2024, Expires: 04/29/2024 [facility] Comment on above: Expected: 01/29/2024 , Expires: 04/29/2024 Start: 01-29-2024 End: 04-29-2024 Folate [Mass/volume] in Serum or Plasma FOLATE, SERUM Lab Routine Vitamin B12 deficiency Expected: 01/29/2024, Expires: 04/29/2024 [facility] Comment on above: Expected: 01/29/2024 , Expires: 04/29/2024 Start: 01-29-2024 End: 04-29-2024 Iron and Iron binding capacity panel - Serum or Plasma IRON AND TIBC Lab Routine Vitamin B12 deficiency Chronic renal insufficiency, stage 3 (moderate) (HCC) Iron deficiency anemia, unspecified iron deficiency anemia type Expected: 01/29/2024, Expires: 04/29/2024 [facility] Comment on above: Expected: 01/29/2024 , Expires: 04/29/2024 Start: 01-28-2024 End: 04-28-2024 25-hydroxyvitamin D3 [Mass/volume] in Serum or Plasma [facility] Comment on above: Expected: 01/28/2024 , Expires: 04/28/2024 Start: 01-28-2024 End: 04-28-2024 Basic metabolic 2000 panel - Serum or Plasma [facility] Comment on above: Expected: 01/28/2024 , Expires: 04/28/2024 Start: 01-28-2024 BP Controlled (<130/80) BP Controlle d (<130/80) [facility] Start: 01-28-2024 End: 04-28-2024 CBC W Auto Differential panel - Blood [facility] Comment on above: Expected: 01/28/2024 , Expires: 04/28/2024 Start: 01-28-2024 End: 04-28-2024 Cobalamin (Vitamin B12) [Mass/volume] in Serum or Plasma [facility] Work Phone: Comment on above: Expected: 01/28/2024 , Expires: 04/28/2024 Start: 01-28-2024 End: 01-28-2024 Patient encounter procedure 01/28/2024 9:40 AM EDT Office Visit [facility] [address] [place], [place] [id number] Kb Lackey MD [address] [facility] [place] [id number] 6 mo follow up [facility] Comment on above: 6 mo follow up Start: 12-24-2023 Annual PCP Team Spout Worker levi Disease Visit Annual PCP Team Chronic Disease Visit [facility] Start: 12-24-2023 Covid-19 Vaccine (#1) Covid-19 Vacci ne (#1) [facility] Comment on above: Postponed from 05/21 (Declined at this time) Start: 12-24-2023 Covid-19 Vaccine ( season) Covid-19 Vaccine ( season) [facility] Comment on above: Postponed from 12/06 (Declined at this time) Start: 12-24-2023 Hepatitis B Vaccine (1 of 3 - Risk 3-dose series) Hepatitis B Vaccine (1 of 3 - Risk 3-dose series) [facility] Comment on above: Postponed from 11/18 (Declined at this time) Start: 12-24-2023 Serum Creatinine Serum Creatinine [facility] Start: 12-24-2023 Shingrix Vaccine (2 of 3) Valenzuela grix Vaccine (2 of 3) [facility] Comment on above: Postponed from 01/16 (Declined at this time) Start: 12-24-2023 Urine microalbumin profile DTaP,Tdap,Td Vaccine (1 - Tdap) [facility] Comment on above: Postponed from 12/31 (Declined at this time) Start: 12-07-2023 Covid-19 Vaccine ( season) Covid-19 Vaccine ( season) [facility] Start: 12-07-2023 Covid-19 Vaccine ( season) Covid-19 Vaccine ( season) [facility] Start: 12-07-2023 Influenza vaccination [facility] Start: 11-11-2023 End: 11-11-2023 Patient encounter procedure 11/11/2023 11:00 AM EDT Office Visit [facility] [address] [place] [address] Didier Man DO [address] [place] [address] Recurrent UTI (urinary tract infection) [N39.0] [facility] Comment on above: Recurrent UTI (urina ry tract infection) [N39.0] Start: 10-05-2023 Influenza vaccination Influenza Vacc ine (#1) [facility] Comment on above: Postponed from 12/06 (Declined at this time) Start: 09-11-2023 Hemoglobin A1c measurement HbA1C [facility] Start: 09-10-2023 Hemoglobin A1c measurement HbA1C [facility] Start: 07-28-2023 End: 10-27-2023 Bacteria identified in Urine by Culture URINE CULTURE Microbiology Routine Proteinuria, unspecified type Pyuria Expected: 07/28/2023, Expires: 10/27/2023 [facility] Comment on above: Expected: 07/28/2023 , Expires: 10/27/2023 Start: 07-28-2023 End: 10-27-2023 Urinalysis complete panel - Urine URINALYSIS, WITH MICROSCOPIC Lab Routine Proteinuria, unspecified type Pyuria Expected: 07/28/2023, Expires: 10/27/2023 [facility] Work Phone: Comment on above: Expected: 07/28/2023 , Expires: 10/27/2023 Start: 07-26-2023 End: 10-25-2023 Basic metabolic 2000 panel - Serum or Plasma [facility] Work Phone: Comment on above: Expected: 07/26/2023 , Expires: 10/25/2023 Start: 07-26-2023 End: 10-25-2023 CBC W Auto Differential panel - Blood [facility] Work Phone: Comment on above: Expected: 07/26/2023 , Expires: 10/25/2023 Start: 07-26-2023 End: 10-25-2023 Urinalysis complete panel - Urine URINALYSIS, WITH MICROSCOPIC Lab Routine Renal insufficiency Expected: 07/26/2023, Expires: 10/25/2023 [facility] Work Phone: Comment on above: Expected: 07/26/2023 , Expires: 10/25/2023 Start: 07-18-2023 Hepatitis B surface antibody level LDL Cholesterol [facility] Start: 07-03-2023 Complete blood count Hemoglobin/Kashif tocrit [facility] Start: 06-18-2023 ANNUAL PCP TEAM TICKET TAKER FERRYBOAT LEVI DISEASE VISIT ANNUAL PCP TEAM CHRONIC DISEASE VISIT [facility] Start: 06-18-2023 BP CONTROLLED (<130/80) BP CONTROLLE D (<130/80) [facility] Start: 06-18-2023 SERUM CREATININE SERUM CREATININE Cl [facility] Start: 04-07-2023 Advance Directive Discussion Advance Directive Discussion [facility] Start: 04-07-2023 Behavioral Health Screening Behavioral Health Screening [facility] Start: 04-07-2023 Depression Assessment Depression Ass essment [facility] Start: 01-22-2023 End: 03-24-2023 Basic metabolic 2000 panel - Serum or Plasma BASIC METABOLIC PNL Lab Routine Essential hypertension, benign Chronic renal insufficiency, stage 3 (moderate) (HCC) Expected: 01/22/2023, Expires: 03/24/2023 [facility] Work Phone: Comment on above: Expected: 01/22/2023 , Expires: 03/24/2023 Start: 01-22-2023 End: 03-24-2023 Cobalamin (Vitamin B12) [Mass/volume] in Serum or Plasma VITAMIN B12 BLOOD Lab Routine Vitamin D deficiency Expected: 01/22/2023, Expires: 03/24/2023 [facility] Work Phone: Comment on above: Expected: 01/22/2023 , Expires: 03/24/2023 Start: 12-18-2022 3 comp foot exam completed DIABETIC FOOT EXAM [facility] Start: 12-18-2022 Adult depression screening assessment DEPRESSION SCREENING [facility] Start: 12-18-2022 ANNUAL PCP TEAM TICKET TAKER FERRYBOAT LEVI DISEASE VISIT ANNUAL PCP TEAM CHRONIC DISEASE VISIT [facility] Start: 12-18-2022 BP CONTROLLED (<130/80) BP CONTROLLE D (<130/80) [facility] Start: 12-18-2022 COVID-19 VACCINE (#1) COVID-19 VACCI NE (#1) [facility] Comment on above: Postponed from 05/21 (Declined at this time) Start: 12-18-2022 Diabetic foot examination Diabetic F oot Exam [facility] Start: 12-13-2022 SERUM CREATININE SERUM CREATININE Cl [facility] Start: 12-06-2022 Influenza vaccination [facility] Start: 10-04-2022 Influenza vaccination INFLUENZA (#1) [facility] Comment on above: Postponed from 12/06 (Declined at this time) Start: 07-16-2022 End: 09-15-2022 ALBUMIN/CREAT RATIO RND UR ALBUMIN/CREAT RATIO RND UR Lab Routine Diabetes mellitus ([facility]) Expected: 07/16/2022, Expires: 09/15/2022 [facility] Work Phone: Comment on above: Expected: 07/16/2022 , Expires: 09/15/2022 Start: 07-16-2022 End: 09-15-2022 Hemoglobin A1c in Blood HGB A1C Lab Routine Diabetes mellitus ([facility]) Expected: 07/16/2022, Expires: 09/15/2022 [facility] Work Phone: Comment on above: Expected: 07/16/2022 , Expires: 09/15/2022 Start: 06-17-2022 End: 08-17-2022 Basic metabolic 2000 panel - Serum or Plasma [facility] Work Phone: Comment on above: Expected: 06/17/2022 , Expires: 08/17/2022 Start: 06-17-2022 End: 08-17-2022 CBC W Auto Differential panel - Blood [facility] Work Phone: Comment on above: Expected: 06/17/2022 , Expires: 08/17/2022 Start: 06-16-2022 Hemoglobin A1c/Hemoglobin.total in Blood HBA1C [facility] Start: 06-15-2022 ANNUAL PCP TEAM TICKET TAKER FERRYBOAT LEVI DISEASE VISIT ANNUAL PCP TEAM CHRONIC DISEASE VISIT [facility] Start: 06-07-2022 Patient discharge [facility] Start: 06-06-2022 Referral to occupati onal therapist [facility] Start: 06-06-2022 Referral to service [facility] Start: 06-05-2022 Following clinical pathway protocol [facility] Start: 06-05-2022 Assessment of risk o f venous thromboembolism [facility] Start: 06-05-2022 Cardiac monitoring [facility] Start: 06-05-2022 Care regimes management [facility] Start: 06-05-2022 Catheterization of vein [facility] Start: 06-05-2022 Inhalation therapy procedure [facility] Start: 06-05-2022 Insertion of cathete r into peripheral vein [facility] Start: 06-05-2022 Measuring intake and output [facility] Start: 06-05-2022 Notification of physician [facility] Start: 06-05-2022 Oxygen therapy [facility] Start: 06-05-2022 Providing care accor ding to standard [facility] Start: 06-05-2022 Provision of activit y privileges [facility] Start: 06-05-2022 [facility] Start: 06-05-2022 Verification routine [facility] Start: 06-05-2022 Admission procedure [facility] Start: 06-05-2022 [facility] Start: 06-05-2022 End: 06-05-2022 Blood culture [facility] Start: 06-05-2022 [facility] Start: 06-05-2022 Patient referral to dietitian [facility] Start: 05-02-2022 Hepatitis B screening URINE ALBUMIN:CREATININE RATIO [facility] Start: 05-02-2022 Hepatitis B surface antibody level LDL CHOLESTEROL [facility] Start: 05-02-2022 SERUM CREATININE SERUM CREATININE Cl [facility] Start: 04-07-2022 ADVANCE DIRECTIVE DISCUSSION ADVANCE DIRECTIVE DISCUSSION [facility] Start: 04-07-2022 DEPRESSION ASSESSMENT DEPRESSION ASS ESSMENT [facility] Start: 03-18-2022 Hemoglobin A1c/Hemoglobin.total in Blood HBA1C [facility] Start: 03-18-2022 End: 05-18-2022 Thyrotropin [Units/volume] in Serum or Plasma TSH BLD Lab Routine Hypothyroidism, unspecified type Expected: 03/18/2022, Expires: 05/18/2022 [facility] Work Phone: Comment on above: Expected: 03/18/2022 , Expires: 05/18/2022 Start: 01-30-2022 End: 04-01-2022 Thyrotropin [Units/volume] in Serum or Plasma TSH BLD Lab Routine Hypothyroidism, unspecified type Expected: 01/30/2022, Expires: 04/01/2022 [facility] Work Phone: Comment on above: Expected: 01/30/2022 , Expires: 04/01/2022 Start: 12-18-2021 End: 02-17-2022 T4/FTI/T4U [facility] Work Phone: Comment on above: Expected: 12/18/2021 , Expires: 02/17/2022 Start: 12-18-2021 End: 02-17-2022 Thyrotropin [Units/volume] in Serum or Plasma [facility] Work Phone: Comment on above: Expected: 12/18/2021 , Expires: 02/17/2022 Start: 12-06-2021 Influenza vaccination INFLUENZA (#1) [facility] Start: 11-08-2021 3 comp foot exam completed DIABETIC FOOT EXAM [facility] Start: 07-31-2021 Hemoglobin A1c/Hemoglobin.total in Blood HBA1C [facility] Start: 04-07-2021 ADVANCE DIRECTIVE DISCUSSION ADVANCE DIRECTIVE DISCUSSION [facility] Start: 04-07-2021 DEPRESSION ASSESSMENT DEPRESSION ASS ESSMENT [facility] Start: 10-30-2019 Adult depression screening assessment DEPRESSION SCREENING [facility] Start: 2017 RSV Vaccine (1 - 1-d ose 75+ series) RSV Vaccine (1 - 1-dose 75+ series) [facility] Start: 01-17-2012 SHINGRIX VACCINE (2 of 3) VALENZUELA GRIX VACCINE (2 of 3) [facility] Start: 12-31-2008 Urine microalbumin profile [facility] Start: 2002 RSV Vaccine (1 - 1-d ose 60+ series) RSV Vaccine (1 - 1-dose 60+ series) [facility] Start: 1960 BP CONTROLLED (<130/80) BP CONTROLLE D (<130/80) [facility] Start: 1952 Glaucoma screening Dilated Retinal E xam [facility] Start: 1952 Hepatitis C antibody , confirmatory test DILATED RETINAL EXAM [facility] Start: 05-21-1941 COVID-19 VACCINE (#1) COVID-19 VACCI NE (#1) [facility] Bacteria identified in Blood by Culture Blood Culture [facility] Bacteria identified in Blood by Culture Blood Culture [facility] Bacteria identified in Urine by Culture Urine Culture [facility] Basic metabolic 2000 panel - Serum or Plasma BASIC METABOLIC PNL Lab Routine Essential hypertension, benign Chronic renal insufficiency, stage 3 (moderate) (HCC) 12/23/2022 2:01 PM EDT [facility] Work Phone: Cobalamin (Vitamin B 12) [Mass/volume] in Serum or Plasma VITAMIN B12 BLOOD Lab Routine Vitamin D deficiency 12/23/2022 2:01 PM EDT [facility] Work Phone: Hemoglobin.gisele manleylower [Presence] in Stool by Immunoassay IMMUNOCHEMICAL FECAL OCCULT BLOOD TEST Lab Routine Anemia, unspecified type Ordered: 08/09/2024 [facility] Work Phone: Comment on above: Ordered: 08/09/2024 Lactic acid measurement [facility] Patient referral [facility] Work Phone: [facility] Immunizations Immunization Date Immunization Notes Care Provider Ashley marshall 04-28-2018 influenza virus vacc ine, unspecified formulation Kb Lackey MD Work Phone: [facility] 01-25-2016 influenza, high dose seasonal, preservative-free Maribell Titus RN Work Phone: [facility] Work Phone: 10-21-2014 pneumococcal conjuga te vaccine, 13 valent Maribell Titus RN Work Phone: [facility] 12-20-2013 influenza, high dose seasonal, preservative-free Maribell Titus RN Work Phone: [facility] 11-22-2011 zoster vaccine, live Maribell Titus RN Work Phone: [facility] Work Phone: 02-15-2011 influenza virus vacc ine, unspecified formulation Maribell Titus RN Work Phone: [facility] Work Phone: 01-23-2010 influenza virus vacc ine, unspecified formulation Maribell Titus RN Work Phone: [facility] Work Phone: 12-30-2008 influenza virus vacc ine, unspecified formulation Maribell Titus RN Work Phone: [facility] Work Phone: 12-30-2008 pneumococcal polysaccharide vaccine, 23 valent Maribell Titus RN Work Phone: [facility] Work Phone: 12-30-2008 tetanus and diphther ia toxoids, adsorbed, preservative free, for adult use (2 Lf of tetanus toxoid and 2 Lf of diphtheria toxoid) Maribell Titus RN Work Phone: [facility] Work Phone: Payers Date Payer Category Payer Self-pay [id number] 2020 Medicare (Managed Care) [employer] [id number] 2020 Medicare [id number] 2017 Medicare [id number] 2007 Unknown [id number] 2006 Unknown [facility] COMP [id number] 2006-Present [phone] [place] [address] [facility] [place] [id number] Medicare MEDICARE PART A B [id number] Unknown [id number] Unknown [id number] Unknown [id number] Unknown [id number] Unknown [id number] Unknown [id number] Unknown [id number] Unknown [id number] Unknown [id number] Social History Date Type Detail Facility Start: 01-11-2011 End: 01-28-2024 Tobacco smoking status PRIS Ex-smoker [facility] Work Phone: Start: 10-12-1955 End: 10-11-1980 History of tobacco use Current smoker [facility] Work Phone: Start: 10-12-1955 End: 10-11-1980 History of tobacco use Cigarette Smoker [facility] Work Phone: Start: 01-11-2011 End: 12-23-2022 Cigarettes smoked current (pack per day) - Reported 1 [facility] Work Phone: Start: 01-11-2011 End: 01-28-2024 Tobacco use and exposure Smokeless tobacco non-user [facility] Work Phone: Start: 11-21-2021 End: 11-04-2024 Alcohol intake Current non-drinker of alcohol (finding) [facility] Start: 1940 Sex Assigned At Not on file [facility] Start: 12-08-2021 End: 12-18-2021 Exposure to SARS-CoV-2 (event) Not sure [facility] Start: 06-05-2022 End: 06-05-2022 Tobacco smoking status NHIS Unknown if ever smoked [facility] Start: 06-25-2020 Cigarettes [facility] Start: 1940 Sex Assigned At Male [facility] Start: 08-23-2022 History SDOH Food Worry 1 [facility] Start: 08-23-2022 History SDOH Transpo rt Med 2 [facility] Start: 06-17-2022 End: 12-23-2022 Tobacco use panel [facility] Work Phone: Start: 03-08-2012 Adult Depression Screening Assessment 0 [facility] Work Phone: (I/We) worried wheth er (my/our) food would run out before (I/we) got money to buy more. Never true [facility] Work Phone: Medical Equipment Procedure Code Equipment Code Equipment Original Text Equipment Identifier Dates [id number], [id number] Start: 12-01-2020 End: 02-07-2022 Comment on above: Test blood sugar(s) 1 times daily. Dx: Type 2 DM - Uncontrolled E11.65 Insulin: No Test blood sugar(s) 1 times daily. Dx: Type 2 DM - Uncontrolled E11.65 Insulin: Yes Lancets-Blood Glucose Strips Start: 06-27-2020 Lancets-Blood Glucose Strips Start: 06-27-2020 Lancets-Blood Glucose Strips 1 EACH combo pack Start: 06-27-2020 Pen Needle, Diabetic, Safety 30 gauge x 1/3 needle Start: 01-05-2024 Pen Needle, Diabetic, Safety 30 gauge x 1/3 needle Start: 01-07-2023 End: 01-07-2023 Pen Needle, Diabetic, Safety 30 gauge x 1/3 needle Start: 01-07-2023 End: 10-10-2023 Pen Needle, Diabetic, Safety 30 gauge x 1/3 needle Start: 12-01-2020 End: 04-12-2021 Pen Needle, Diabetic, Safety 30 gauge x 1/3 needle Start: 04-12-2021 End: 06-13-2022 Pen Needle, Diabetic, Safety 30 gauge x 1/3 needle Start: 06-13-2022 End: 01-07-2023 Pen Needle, Diabetic, Safety 30 gauge x 1/3 needle Start: 10-10-2023 End: 01-05-2024 Goals Date Patient Goal Desired Activity /State Personal health goal Comment on above: Formatting of this n ote might be different from the original. Patient has the following Chronic Kidney Disease goals: Two PCP visits annually Education provided and reviewed with patient -CKD DONTA Education - CKD (ALL) Patient will meet these goals by: 09/21/23 (describe interventions done by PCC) Formatting of this n ote might be different from the original. Patient has the following general goals: Two PCP visits annually Patient Stated goal: better blood glucose monitoring - has continuous glucose monitor Patient will meet these goals by 09/21/23 (describe interventions done by PCC) Formatting of this n ote might be different from the original. Patient has the following Chronic Kidney Disease goals: Two PCP visits annually Education provided and reviewed with patient -CKD Zones, Renal Diet Basics, and CKD DONTA Education - CKD (ALL) Patient will meet these goals by: 09/21/23 (describe interventions done by PCC) Formatting of this n ote might be different from the original. Patient has the following Chronic Kidney Disease goals: Two PCP visits annually Education provided and reviewed with patient -CKD Zones, Renal Diet Basics, and CKD DONTA Education - CKD (ALL) Patient will meet these goals by: 09/21/23 (describe interventions done by PCC) 05/01/23- reviewed zones/management with spouse Formatting of this n ote might be different from the original. Patient has the following Chronic Kidney Disease goals: Two PCP visits annually Education provided and reviewed with patient -CKD Zones, Renal Diet Basics, and CKD DONTA Education - CKD (ALL) Patient will meet these goals by: 09/21/23 (describe interventions done by PCC) 05/01/23- reviewed zones/management with spouse 08/21/23-Pt follows low Na+ FELICITAS, does not use NSAIDs, BP <130/80 Reviewed to keep A1C <7 Reviewed plate method and 60 g carb per meal and 15 g carb per snack Personal health goal Comment on above: Formatting of this n ote might be different from the original. This patient has the following High Blood Pressure/Hypertension Health Maintenance goals: Two PCP Visits annually, Nurse / pharmacist / NAILA visit within 4 weeks after PCP visit with uncontrolled BP (>140/90), and BMP annually This patient has the following education goals: Medication compliance education, Advise / educate patient to ask for repeat BP check at any appointment if first BP is >140/90, Checking your Blood Pressure at Home, High Blood Pressure: Talking to Your Health Care Provider, High Blood Pressure - When to Seek Emergency Care, and Your Sodium-Controlled Diet Patient will meet these goals by 04/02/24 (Reviewed with spouse using teach back) Personal health goal Comment on above: Formatting of this n ote might be different from the original. This patient has the following Diabetes Health Maintenance goals: HBA1C drawn in last 10 months, Annual PCP visit, HBA1C < 8, Diabetic yearly eye screening, Diabetic foot exam, Medication Adherence, Consult to Diabetes education., and If Hba1c >= 8 referral to pharmacy This patient has the following education goals: Diet Modification: Plate Method, Blood Sugar Monitoring: Importance of, and Medication Compliance Carb counting, plate method Patient will meet these goals by: 08/20/24 (describe interventions done by PCC) Instructed patient on Diet Modification: Plate Method, Importance of Blood Sugar Monitoring, and Medication Compliance Kianna Barnett RN August 21, 2023 11:38 AM Formatting of this n ote might be different from the original. This patient has the following Diabetes Health Maintenance goals: HBA1C drawn in last 10 months, Annual PCP visit, HBA1C < 8, Diabetic yearly eye screening, Diabetic foot exam, Medication Adherence, Consult to Diabetes education., and If Hba1c >= 8 referral to pharmacy This patient has the following education goals: Diet Modification: Plate Method, Blood Sugar Monitoring: Importance of, and Medication Compliance Carb counting, plate method Patient will meet these goals by: 08/20/24 (describe interventions done by PCC) Instructed patient on Diet Modification: Plate Method, Importance of Blood Sugar Monitoring, and Medication Compliance Kianna Barnett RN August 21, 2023 11:38 AM 09/18/23- reviewed BS goals- FBS 100, 2 hr after meal 140-180, Before bedtime 150. Comment on above: Formatting of this n ote is different from the original. Hemoglobin A1C (%) Date Value 05/02/2021 11.5 05/04/2020 7.1 11/22/2019 6.2 08/31/2019 9.6 10/27/2017 5.9 Comment on above: Formatting of this n ote might be different from the original. Patient has the following Chronic Kidney Disease goals: Two PCP visits annually Education provided and reviewed with patient -CKD DONTA Education - CKD (ALL) Patient will meet these goals by: 09/21/23 (describe interventions done by PCC) Comment on above: Formatting of this n ote might be different from the original. Patient has the following general goals: Two PCP visits annually Patient Stated goal: better blood glucose monitoring - has continuous glucose monitor Patient will meet these goals by 09/21/23 (describe interventions done by PCC) Functional Status Date Assessment Result Facility 07-28-2024 Functional status [facility] Work Phone: 06-07-2022 Functional status Ambulates [facility] Work Phone: 11-02-2014 Are you deaf, or do you have serious difficulty hearing No 11/02/2014 9:50 AM Salma Colon LPN No [facility] 11-02-2014 Are you blind, or do you have serious difficulty seeing, even when wearing glasses No 11/02/2014 9:50 AM Salma Colon LPN No [facility] 11-02-2014 Do you have serious difficulty walking or climbing stairs No 11/02/2014 9:50 AM Salma Colon LPN No [facility] 11-02-2014 Do you have difficul ty dressing or bathing No 11/02/2014 9:50 AM Salma Colon LPN No [facility] 11-02-2014 Because of a physica l, mental, or emotional condition, do you have difficulty doing errands alone such as visiting a physician's office or shopping No 11/02/2014 9:50 AM EDT Salma Marquis LPN No [facility] Mental Status Date Assessment Result Facility 07-28-2024 Cognitive function Voice/Name [facility] Work Phone: 06-07-2022 Cognitive function Voice/Name [facility] Work Phone: 06-05-2022 Cognitive function Level Of Cons ciousness Awake;Alert [facility] Work Phone: 11-02-2014 Because of a physica l, mental, or emotional condition, do you have serious difficulty concentrating, remembering, or making decisions No 11/02/2014 9:50 AM EDT Salma Marquis LPN [facility] Clinical Notes 07-07-2015 to 02-10-2025 Telephone Encounter - Morgan Dotson formerly [facility] 12/03/2024 12:46 PM EDTTelephone Encounter - Morgan Dotson formerly [facility] 12/03/2024 12:46 PM EDTMorgan Dotson formerly [facility] 12/03/2024 12:43 PM EDT Note Date & Type Note Facility 02-10-2025 Note HNO ID: [id number] Author: KB LACKEY MD Service: ? Author Type: Physician Type: Progress Notes Filed: 02/10/2025 16:33 Note Text: They are already obtained regularly per endo at [facility] 02-10-2025 Note HNO ID: [id number] Author: BONIFACIO VEGA, ? Service: ? Author Type: Patient Diabetic Educator Type: Progress Notes Filed: 02/10/2025 16:33 Note Text: POPULATION HEALTH NAVIGATION OUTREACH Action/DIVYA Vela Dive List Please consider a current uACR test for the patient - order pending for PCP HM due: Urine albumin A1c Dilated retinal exam Flu vaccine Spoke to pt's spouse; labs pending pt will walk in prior to upcoming PCP visit. Sees external eye provider Declined flu vaccine. Reason for Outreach Care Gap/HCC or Scheduling Wellness Visits Care Gaps due: Diabetic Eye Exam HBA1C KED Flu Vaccine Patient Contacted: Spoke to patient/parent/or legal guardian Patient identified by name and : Yes Care Gap/HCC/Scheduling Wellness actions taken: Patient scheduled/pended orders: HBA1C KED 03/19/2025 in [facility] with KB LACKEY - Physical Patient will walk in for labs Navigation Signature: Bonifacio Vega February 10, 2025 2:11 PM [facility] 02-10-2025 Note Patient Outreach (NE TNAV) JEAN-CLAUDE DOUGLAS ([id number]) 1940 M Date Time Provider Department 02/10/25 BONIFACIO VEGA NETRODRIGOV During your visit today, we recorded the following information about you: Bonifacio Vega 02/10/2025 4:33 PM Signed POPULATION HEALTH NAVIGATION OUTREACH Action/DIVYA MAGANA Deep Dive List Please consider a current uACR test for the patient - order pending for PCP HM due: Urine albumin A1c Dilated retinal exam Flu vaccine Spoke to pt's spouse; labs pending pt will walk in prior to upcoming PCP visit. Sees external eye provider Declined flu vaccine. Reason for Outreach Care Gap/HCC or Scheduling Wellness Visits Care Gaps due: Diabetic Eye Exam HBA1C KED Flu Vaccine Patient Contacted: Spoke to patient/parent/or legal guardian Patient identified by name and : Yes Care Gap/HCC/Scheduling Wellness actions taken: Patient scheduled/pended orders: HBA1C KED 03/19/2025 in [facility] with KB LACKEY - Physical Patient will walk in for labs Navigation Signature: Bonifacio Vega February 10, 2025 2:11 PM Kb Lackey MD 02/10/2025 4:33 PM Signed They are already obtained regularly per endo at [facility] Allergies As of Date: 02/10/2025 (No Known Allergies) Date Reviewed: 08/03/2024 Reviewed by: Kemi Gaona MA - Fully Assessed Reason for Visit: Population Health Navigation Outreach [3910] Cmt: Edna MAGANA Deep Dive List Primary Visit Diagnosis:Type 2 diabetes mellitus with stage 3a chronic kidney disease, without long-term current use of insulin (HCC) [E11.22, N18.31] Prescriptions as of 02/10/2025 - lisinopril (ZESTRIL) 30 mg tablet Take 1 tablet by mouth once daily. - levothyroxine (SYNTHROID) 125 mcg tablet Take 1 tablet by mouth once daily. Take on empty stomach. For Thyroid - nystatin (MYCOSTATIN) cream Apply to affected area two times a day. - cyanocobalamin (VITAMIN B-12) 1,000 mcg tab Take 1 tablet by mouth once daily. - metFORMIN ER (GLUCOPHAGE XR) 500 mg 24 hr tablet Take 2 tablets by mouth twice daily. - blood sugar diagnostic (BLOOD GLUCOSE TEST) test strip Test blood sugar(s) 1 times daily. Dx: Type 2 DM - Uncontrolled E11.65 Insulin: No - Lancets lancets Test blood sugar(s) 1 times daily. Dx: Type 2 DM - Uncontrolled E11.65 Insulin: Yes - insulin aspart prot/insuln asp (NOVOLOG MIX 70-30 SUBCUTANEOUS) Inject subcutaneously two times a day with meals. Per [facility] 24 units every morning and 10 units qhs - ferrous sulfate 325 mg (65 mg iron) tablet Take 325 mg by mouth. - mv,iron,hvz-JC-svjbmdn cmb.24 400 mcg tab Take 1 tablet by mouth once daily. - Cholecalciferol, Vitamin D3, 1,000 unit cap Take 1 capsule by mouth once daily. Problem List As Of Date 02/10/2025 Noted Resolved Hypothyroidism [E03.9] 06/17/2005 INGUINAL HERNIA, UNILATERAL W/O GANGRENE/OBSTRU*01/05/2007 10/06/2009 Major depressive disorder, recurrent, moderate *01/26/2008 12/23/2022 Tremor [R25.1] 12/30/2008 Dementia [F03.90] 03/20/2009 05/05/2017 Vitamin B12 Deficiency [E53.8] 06/30/2009 Hearing Loss [H91.90] 10/06/2009 Vitamin D deficiency [E55.9] 01/23/2010 Essential hypertension, benign [I10] 11/22/2011 Blood in stool [K92.1] 07/07/2015 04/25/2016 Family history of colon cancer [Z80.0] 07/07/2015 Iron deficiency anemia [D50.9] 04/26/2016 Chronic renal insufficiency, stage 3 (moderate)*04/28/2018 02/19/2024 Type 2 diabetes mellitus with stage 3a chronic *10/13/2019 Advanced care planning/counseling discussion [Z*06/15/2021 Acute hyperglycemia [R73.9] 12/18/2021 12/23/2022 Dehydration [E86.0] 12/18/2021 12/23/2022 Diabetes mellitus (HCC) [E11.9] 12/18/2021 12/23/2022 Acute kidney injury (HCC) [N17.9] 12/18/2021 12/23/2022 Encounter Status:Closed by KB LACKEY on 02/10/25 [facility] 12-03-2024 Telephone encount er Note Patient reviewed for Population Health Medication Adherence Pended the following prescription(s) for review. Requested Prescriptions Pending Prescriptions Disp Refills lisinopril (ZESTRIL) 30 mg tablet 90 tablet 3 Sig: Take 1 tablet by mouth once daily. Future Appointments Date Time Provider Department Center 03/19/2025 11:20 AM [facility] Please review and refill if appropriate. Thank you. Morgan Dotson CPhT December 03, 2024 12:46 PM [facility] 12-03-2024 Miscellaneous Notes Formattin g of this note is different from the original. Patient reviewed for Population Health Medication Adherence Pended the following prescription(s) for review. Requested Prescriptions Pending Prescriptions Disp Refills lisinopril (ZESTRIL) 30 mg tablet 90 tablet 3 Sig: Take 1 tablet by mouth once daily. Future Appointments Date Time Provider Department Center 03/19/2025 11:20 AM Kb Lackey MD [facility] Please review and refill if appropriate. Thank you. Morgan Dotson CPhT December 03, 2024 12:46 PM documented in this encounter [facility] 12-03-2024 Note HNO ID: [id number] Author: MORGAN DOTSON CPhT Service: ? Author Type: Machine Deburrer Type: Progress Notes Filed: 12/03/2024 12:45 Note Text: Patient is identified through a medication adherence outreach initiative based on pharmacy claims data from: [email or web address] Medication Adherence Category: Hypertension First Review Attribution Status: Correct attribution Medication(s) Lisinopril 30 mg Last Filled 07/24/24 for 90DS, Next fill due 11/07/24 Medication Status per portal/Epic Reconcile Dispense: Not filled Medication Status per Profile Review: No refills Patient/provider appropriate for outreach? Yes Patient identified by name and Outreach to patient: Spoke to patient's caregiver Med Adherence Concern: No refills What was primary intervention? Pend refill request to provider Morgan Dotson CPhT Value Based Care Pharmacy Team [facility] 12-03-2024 History of Presen t illness Narrative Patient is identified through a medication adherence outreach initiative based on pharmacy claims data from: [email or web address] Medication Adherence Category: Hypertension First Review Attribution Status: Correct attribution Medication(s) Lisinopril 30 mg Last Filled 07/24/24 for 90DS, Next fill due 11/07/24 Medication Status per portal/Epic Reconcile Dispense: Not filled Medication Status per Profile Review: No refills Patient/provider appropriate for outreach? Yes Patient identified by name and Outreach to patient: Spoke to patient's caregiver Med Adherence Concern: No refills What was primary intervention? Pend refill request to provider Morgan Dotson CPhT [facility] Based Care Pharmacy Team documented in this encounter [facility] 12-03-2024 Note [facility] JEAN-CLAUDE DOUGLAS ([id number]) 1940 M Date Time Provider Department 12/03/24 KB LACKEY During your visit today, we recorded the following information about you: Morgan Dotson CPhT 12/03/2024 12:45 PM Signed Patient is identified through a medication adherence outreach initiative based on pharmacy claims data from: [email or web address] Medication Adherence Category: Hypertension First Review Attribution Status: Correct attribution Medication(s) Lisinopril 30 mg Last Filled 07/24/24 for 90DS, Next fill due 11/07/24 Medication Status per portal/Epic Reconcile Dispense: Not filled Medication Status per Profile Review: No refills Patient/provider appropriate for outreach? Yes Patient identified by name and Outreach to patient: Spoke to patient's caregiver Med Adherence Concern: No refills What was primary intervention? Pend refill request to provider Morgan Dotson CPhT [facility] Allergies As of Date: 12/03/2024 (No Known Allergies) Date Reviewed: 08/03/2024 Reviewed by: Kemi Gaona MA - Fully Assessed Reason for Visit: Allied Health Visit [5] Cmt: Medication Adherence Outreach Prescriptions as of 12/03/2024 - levothyroxine (SYNTHROID) 125 mcg tablet Take 1 tablet by mouth once daily. Take on empty stomach. For Thyroid - nystatin (MYCOSTATIN) cream Apply to affected area two times a day. - cyanocobalamin (VITAMIN B-12) 1,000 mcg tab Take 1 tablet by mouth once daily. - lisinopril (ZESTRIL) 30 mg tablet Take 1 tablet by mouth once daily. - metFORMIN ER (GLUCOPHAGE XR) 500 mg 24 hr tablet Take 2 tablets by mouth twice daily. - blood sugar diagnostic (BLOOD GLUCOSE TEST) test strip Test blood sugar(s) 1 times daily. Dx: Type 2 DM - Uncontrolled E11.65 Insulin: No - Lancets lancets Test blood sugar(s) 1 times daily. Dx: Type 2 DM - Uncontrolled E11.65 Insulin: Yes - insulin aspart prot/insuln asp (NOVOLOG MIX 70-30 SUBCUTANEOUS) Inject subcutaneously two times a day with meals. Per [facility] 24 units every morning and 10 units qhs - ferrous sulfate 325 mg (65 mg iron) tablet Take 325 mg by mouth. - mv,iron,jtp-OK-xqfbeyi cmb.24 400 mcg tab Take 1 tablet by mouth once daily. - Cholecalciferol, Vitamin D3, 1,000 unit cap Take 1 capsule by mouth once daily. Problem List As Of Date 12/03/2024 Noted Resolved Hypothyroidism [E03.9] 06/17/2005 INGUINAL HERNIA, UNILATERAL W/O GANGRENE/OBSTRU*01/05/2007 10/06/2009 Major depressive disorder, recurrent, moderate *01/26/2008 12/23/2022 Tremor [R25.1] 12/30/2008 Dementia [F03.90] 03/20/2009 05/05/2017 Vitamin B12 Deficiency [E53.8] 06/30/2009 Hearing Loss [H91.90] 10/06/2009 Vitamin D deficiency [E55.9] 01/23/2010 Essential hypertension, benign [I10] 11/22/2011 Blood in stool [K92.1] 07/07/2015 04/25/2016 Family history of colon cancer [Z80.0] 07/07/2015 Iron deficiency anemia [D50.9] 04/26/2016 Chronic renal insufficiency, stage 3 (moderate)*04/28/2018 02/19/2024 Type 2 diabetes mellitus with stage 3a chronic *10/13/2019 Advanced care planning/counseling discussion [Z*06/15/2021 Acute hyperglycemia [R73.9] 12/18/2021 12/23/2022 Dehydration [E86.0] 12/18/2021 12/23/2022 Diabetes mellitus (HCC) [E11.9] 12/18/2021 12/23/2022 Acute kidney injury (HCC) [N17.9] 12/18/2021 12/23/2022 Encounter Status:Closed by MORGAN DOTSON on 12/03/24 [facility] 11-22-2024 Progress note [facility] 11-22-2024 Progress note Note Date/Time November 22, 2024 1:48pm [facility] [place] [address] OFFICE VISIT Date of Service: 11/22/24 MR#: [id number] Acct: [id number] Name: JEAN-CLAUDE DOUGLAS Rep #: [id number] : 1940 Provider: Dr. Salvador Kemp MD Age/Sex: 84/M Location: [facility] [place] Status: Signed Intake Vital Signs 08/03/24 13:27 11/22/24 13:31 Height 5 ft 10 in 5 ft 10 in Weight: 151 lb 156 lb BMI 21.7 22.4 BP 109/68 111/65 Blood Pressure Location Rt brachial Lt brachial Position Sitting Sitting Pulse 59 L 65 Pulse Source Monitor Monitor Pulse Oximetry (%) 96 95 Oxygen Delivery Method room air room air Intake Visit Reasons: 3 M FU Chief Complaint: Diabetes Allergies No Known Allergies Allergy (Verified 08/03/24 13:29) Have you fallen in the past year?: No PFSH Medical History Acute metabolic encephalopathy Adverse drug reaction Hypoglycemia associated with type 2 diabetes mellitus Acute cystitis with hematuria CHANTALE (acute kidney injury) Dementia Benign essential hypertension Hypothyroidism (acquired) Diabetes Vision problem Thyroid disease Hearing problem Cataract gallbladder Hernia Hypertension Hypothyroidism Diabetes mellitus Surgical History History of cholecystectomy Family History Other Cancer Social History Smoking Status: Former smoker alcohol intake: current alcohol intake frequency: 0-2 drinks per day substance use type: does not use what type of physical activity do you participate in: walking frequency: daily HPI HPI Chief Complaint: Diabetes Details: JEAN-CLAUDE DOUGLAS, is a 84 M who presents to the office today for follow up. A1C is 9.9% down from 11.7% He is alone today. He states his diet is better, he is eating more vegetables and less cookies. He has put on a few pounds (was underweight) No complaints. He is using CGM which is keeping him safe from severe hypoglycemia. He frequents has sugars over 300 and under 100. ROS Const Constitutional: No fatigue or weight change ENT ENT: Positive for abnormal hearing; No dizziness/vertigo Cardio Cardiology: No chest pain at rest, chest pain with exertion, shortness of breathor palpitations Musc Musculoskeletal: No abnormal gait Neuro Neurology: Positive for abnormal hearing and memory loss; No abnormal gait Psych Psychiatric: Positive for memory loss Skin Skin: No wounds Endo Endocrine: No fatigue or weight change Exam Const General: cooperative, healthy appearing, comfortable, no acute distress, well developed and not cushingoid Nutritional Appearance: well nourished Orientation: alert, awake and oriented x3 HENMT Head: normal to inspection Ears: hearing grossly normal bilaterally Nose: external nose normal Mouth: oral mucosae normal Eyes General: appearance normal, both eyes and all related structures Alignment and Position: alignment normal Periorbital: periorbital findings normal Eyelids: eyelids normal Conjunctivae: conjunctivae normal Neck Neck: normal visual inspection Neck mass: No Chest Chest palpation & inspection: normal inspection of the chest Resp Effort & Inspection: normal respiratory effort, able to speak in complete sentences, symmetric chest movement, no audible wheezes and no cough Cardio Rate: regular rate Rhythm: regular rhythm Skin General: no rashes or lesions noted Neuro General: patient alert, patient awake and patient oriented x3 Cranial Nerves: CN's II-XI intact bilaterally Cognition: normal cognition Speech: speech normal Gait: normal gait Motor: muscle tone normal throughout Extrem General: no edema Psych Appearance: grossly normal Mental Status: mental status grossly normal Mood: congruent mood Affect: normal affect Speech and Movement: speech and movement normal Attitude: cooperative Thought Process: normal Thought Content: normal Judgment: judgment good Results POC A1C POC A1C 9.9 % Last Edit by Denisse Lisa on 11/22/24 13:40 Clinical Quality Measures Falls Risk Screening/Assistive Devices Have you fallen in the past year?: No Assessment and Plan Assessment and Plan (1) Diabetes: Status: Chronic Qualifiers: Diabetes mellitus type: type 2 Diabetes mellitus manager intermediate insulin use:with manager intermediate use Diabetes mellitus complication status: with neurologic complications Diabetes mellitus complication detail: with polyneuropathy Qualified Code(s): E11.42 - Type 2 diabetes mellitus with diabetic polyneuropathy; Z79.4 - [facility] (current) use of insulin Plan: Improved, but poor control. Not a candidate for tight control. He does not want to move to assisted living facility where they can mangage his blood sugars. Continue current plan. (2) Hypothyroidism (acquired): Status: Chronic Plan: Take levothyroxine on an empty stomach with water at least four hours after eating. Then wait 30-60 minutes before consuming any other food or beverage, especially coffee. Separate levothyroxine from vitamins by at least 4 hours. Stop taking any biotin supplement 4 days prior to having labs drawn. (3) Benign essential hypertension: Status: Chronic Plan: Controlled, please continue current medications. (4) Dementia: Status: Chronic Qualifiers: Dementia type: unspecified type Dementia severity: moderate Dementia behavioral or psychological symptom: unspecified whether behavioral, psychotic, or mood disturbance or anxiety Qualified Code(s): F03.B0 - Unspecified dementia, moderate, without behavioral disturbance, psychotic disturbance, mood disturbance, and anxiety Plan: This is a barrier to diabetes control. I have spent [31] minutes today reviewing labs, records and history. Time includes coordinating care, interpretation of tests, discussion with patient's other health care providers via telephone. This also includes time I spent with the patient for exam, treatment plan and education as well as documenting clinical information. 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 Coding Level of Care Code Off vis,est,level 4 Extra Time Spent Extra Time Spent Extra Time Spent: G2211 Diagnoses Type 2 diabetes mellitus with diabetic polyneuropathy, with long-term current use of insulin E11.42; Z79.4 Diabetes mellitus type: type 2 Diabetes mellitus shelter insulin use: with manager intermediate use Diabetes mellitus complication status: with neurologic complications Diabetes mellitus complication detail: with polyneuropathy Hypothyroidism (acquired) E03.9 Benign essential hypertension I10 Moderate dementia, unspecified dementia type, unspecified whether behavioral, psychotic, or mood disturbance or anxiety F03.B0 Dementia type: unspecified type Dementia severity: moderate Dementia behavioral or psychological symptom: unspecified whether behavioral, psychotic, or mood disturbance or anxiety Additional Codes Extra Time Spent - Extra Time Spent: G2211 (G2211) 11/22/24 [id number] <Electronically signed by Salvador Kemp MD> Date _ Salvador Kemp MD Cosigner Signature: Date (if applicable) CC: Dr. Kb Lackey MD ~ [facility] Work Phone: 1(724) 558-901108-16-2025 Telephone encounter Note* Telephone Encounter - [place] Alba Hightower - 11/20/2024 11:06 AM EDT Prescription Refill Information The patient has been identified by name and date of : Yes Caregiver verified no other encounters exist for this prescription request: Yes Caregiver confirmed with patient/requestor that no other refills are due, in the near future, with this provider at this time: Yes The last office visit in the department: 09/15/24 Does the patient have a future office visit with this provider/department: Yes Requested Prescriptions Pending Prescriptions Disp Refills levothyroxine (SYNTHROID) 125 mcg tablet 90 tablet 3 Sig: Take 1 tablet by mouth once daily. Take on empty stomach. [facility]08-16-2025 Miscellaneous Notes* Telephone Encounter - [place] Alba Hightower - 11/20/2024 11:06 AM EDT Prescription Refill Information The patient has been identified by name and date of : Yes Caregiver verified no other encounters exist for this prescription request: Yes Caregiver confirmed with patient/requestor that no other refills are due, in the near future, with this provider at this time: Yes The last office visit in the department: 09/15/24 Does the patient have a future office visit with this provider/department: Yes Requested Prescriptions Pending Prescriptions Disp Refills levothyroxine (SYNTHROID) 125 mcg tablet 90 tablet 3 Sig: Take 1 tablet by mouth once daily. Take on empty stomach. [facility] 11:06 AM documented in [facility] Telephone encounter Note * Telephone Encounter - Betsey Watters RN - 09/17/2024 2:25 PM EDT returned call and given provider's message below with verbalized understanding. [facility]06-13-2025 Miscellaneous Notes* Telephone Encounter - Betsey Watters RN - 09/17/2024 2:25 PM EDT returned call and given provider's message below with verbalized understanding. * Telephone Encounter - Shirlene Zambrano MA - 09/17/2024 10:29 AM EDT Left message for patient to return call. Shirlene Zambrano Ma * Telephone Encounter - Shirlene Zambrano MA - 09/17/2024 10:28 AM EDT ----- Message from Kb Lackey MD sent at 09/16/2024 9:49 AM EDT ----- Let him know labs are stable. documented in this encounterReg[facility] Telephone encounter Note * Telephone Encounter - Shirlene Zambrano MA - 09/17/2024 10:29 AM EDT Left message for patient to return call. Shirlene Zambrano Ma [facility]06-13-2025 Telephone encounter Note* Telephone Encounter - Shirlene Zambrano MA - 09/17/2024 10:28 AM EDT ----- Message from Kb Lackey MD sent at 09/16/2024 9:49 AM EDT ----- Let him know labs are stable. [facility]06-11-2025 NoteHNO ID: [id number] Author: KB LACKEY MD Service: ? Author Type: Physician Type: Progress Notes Filed: 09/15/2024 17:31 Note Text: Jean-Claude Douglas is an 83-year-old male with a history of DM, presenting for follow-up of anemia, hematuria, and DM management. HPI Anemia: - Recent hospitalization revealed anemia; hemoglobin was 11.8 g/dL on 08/06. - Taking OTC iron supplements. - Denies dizziness, chest pain, or dyspnea. - No melena or hematochezia. - Denies abdominal pain, nausea, or emesis. - No changes in skin tone or pallor noted. Hematuria: - Recent urinalysis showed hematuria and yeast, but no bacterial infection. - Denies dysuria, urinary frequency, or hematuria. - Denies fever or chills. Diabetes Mellitus: - Recent blood glucose reading of 83 mg/dL. - Reports occasional hypoglycemic episodes. - Monitoring blood glucose levels with a fingerstick machine. 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 MEDICATIONS: Current Outpatient Medications Medication Sig nystatin (MYCOSTATIN) cream Apply to affected area two times a day. cyanocobalamin (VITAMIN B-12) 1,000 mcg tab Take 1 tablet by mouth once daily. lisinopril (ZESTRIL) 30 mg tablet Take 1 tablet by mouth once daily. levothyroxine (SYNTHROID) 125 mcg tablet Take 1 tablet by mouth once daily. Take on empty stomach. For Thyroid metFORMIN ER (GLUCOPHAGE XR) 500 mg 24 hr tablet Take 2 tablets by mouth twice daily. blood sugar diagnostic (BLOOD GLUCOSE TEST) test strip Test blood sugar(s) 1 times daily. Dx: Type 2 DM - Uncontrolled E11.65 Insulin: No Lancets lancets Test blood sugar(s) 1 times daily. Dx: Type 2 DM - Uncontrolled E11.65 Insulin: Yes insulin aspart prot/insuln asp (NOVOLOG MIX 70-30 SUBCUTANEOUS) Inject subcutaneously two times a day with meals. Per [facility] 24 units every morning and 10 units qhs ferrous sulfate 325 mg (65 mg iron) tablet Take 325 mg by mouth. mv,iron,dgw-AS-gujvjmy cmb.24 400 mcg tab Take 1 tablet by mouth once daily. Cholecalciferol, Vitamin D3, 1,000 unit cap Take 1 capsule by mouth once daily. No current facility-administered medications for this visit. ALLERGIES: ALLERGIES No Known Allergies PAST MEDICAL HISTORY Diagnosis Date B12 deficiency 2010 Elevated blood pressure 2011 Hearing loss Hypertension Hypothyroidism Major depressive disorder, recurrent episode, moderate (HCC) 01/26/2008 Other postablative hypothyroidism Severe major depression, single episode (HCC) 2008 PAST SURGICAL HISTORY Procedure Laterality Date CATARACT EXTRACTION HX Left 10/16/2017 CHOLECYSTECTOMY 2000 Cholecystectomy COLONOSCOPY FLX DX W/COLLJ SPEC WHEN PFRMD 07/07/2015 Colonoscopy EGD ESOPHAGOGASTRODUODENOSCOPY TRANSORAL DIAGNOSTIC 07/07/2015 EGD LAPAROSCOPY SURG RPR INITIAL INGUINAL HERNIA 12/24/06 RIGHT TONSILLECTOMY PRIMARY/SECONDARY Tonsillectomy FAMILY HISTORY Problem Relation Age of Onset Cancer Mother stomach Colon Cancer Brother other (cirrhosis [Other]) Father None Brother None Brother None Brother None Sister Stroke Brother Social History Tobacco Use Smoking status: Former Current packs/day: 0.00 Average packs/day: 1 pack/day for 25.0 years (25.0 ttl pk-yrs) Types: Cigarettes Start date: 10/12/1955 Quit date: 10/11/1980 Years since quittin.9 Smokeless tobacco: Never Vaping Use Vaping status: Never Used Substance Use Topics Alcohol use: No Drug use: No Reviewed current medications, allergies, past medical history, surgical history, family history and social history today. REVIEW OF SYSTEMS Constitutional: (-) fever, (-) chills Cardiovascular: (-) chest pain Respiratory: (-) shortness of breath Gastrointestinal: (-) abdominal pain, (-) nausea, (-) vomiting Genitourinary: (-) dysuria, (-) urinary frequency, (-) hematuria Neurological: (-) dizziness Endocrine: (+) hypoglycemic episodes HEALTH MAINTENANCE: Reviewed health maintenance issues today and recommended the following in detail. Dilated Retinal Exam Never done DTaP,Tdap,Td Vaccine(1 - Tdap) due on 12/31/2008 RSV Vaccine(1 - 1-dose 75+ series) Never done Advance Directive Discussion due on 04/07/2024 Medicare Advantage Annual Wellness Visit Never done Urine Albumin:Creatinine Ratio due on 06/10/2024 LDL Cholesterol due on 06/10/2024 Diabetic Foot Exam due on 07/25/2024 Depression Screening due on 07/25/2024 Anxiety Screening due on 07/25/2024 HbA1C due on 08/15/2024 LAB REVIEWED: Labs: (08/06) - CBC: - Hemoglobin: 11.8 g/dL (low) - RBC indices: Normocytic, normochromic - Iron: Normal - B12: Normal - Folate: Normal - Ferritin: Normal - BMP: Kidney function stable - Stool test for occult blood: Negative - Urinalysis: - RBC present - Minimal yeast noted - No definite bacterial infection VITALS: BP 128/80 Pulse 76 Wt 68.5 kg (151 lb) SpO2 98% BMI 21.67 kg/m? Last 4 Encounter Wt Readings: Date: Wt (more content not included)...[facility]06-11-2025 History of Present illness Narrative* Kb Lackey MD - 09/15/2024 5:31 PM EDT Jean-Claude Douglas is an 83-year-old male with a history of DM, presenting for follow-up of anemia, hematuria, and DM management. HPI Anemia: - Recent hospitalization revealed anemia; hemoglobin was 11.8 g/dL on 08/06. - Taking OTC iron supplements. - Denies dizziness, chest pain, or dyspnea. - No melena or hematochezia. - Denies abdominal pain, nausea, or emesis. - No changes in skin tone or pallor noted. Hematuria: - Recent urinalysis showed hematuria and yeast, but no bacterial infection. - Denies dysuria, urinary frequency, or hematuria. - Denies fever or chills. Diabetes Mellitus: - Recent blood glucose reading of 83 mg/dL. - Reports occasional hypoglycemic episodes. - Monitoring blood glucose levels with a fingerstick machine. 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 MEDICATIONS: Current Outpatient Medications Medication Sig nystatin (MYCOSTATIN) cream Apply to affected area two times a day. cyanocobalamin (VITAMIN B-12) 1,000 mcg tab Take 1 tablet by mouth once daily. lisinopril (ZESTRIL) 30 mg tablet Take 1 tablet by mouth once daily. levothyroxine (SYNTHROID) 125 mcg tablet Take 1 tablet by mouth once daily. Take on empty stomach. For Thyroid metFORMIN ER (GLUCOPHAGE XR) 500 mg 24 hr tablet Take 2 tablets by mouth twice daily. blood sugar diagnostic (BLOOD GLUCOSE TEST) test strip Test blood sugar(s) 1 times daily. Dx: Type 2 DM - Uncontrolled E11.65 Insulin: No Lancets lancets Test blood sugar(s) 1 times daily. Dx: Type 2 DM - Uncontrolled E11.65 Insulin: Yes insulin aspart prot/insuln asp (NOVOLOG MIX 70-30 SUBCUTANEOUS) Inject subcutaneously two times a day with meals. Per [facility] 24 units every morning and 10 units qhs ferrous sulfate 325 mg (65 mg iron) tablet Take 325 mg by mouth. mv,iron,taa-CY-ayhelzy cmb.24 400 mcg tab Take 1 tablet by mouth once daily. Cholecalciferol, Vitamin D3, 1,000 unit cap Take 1 capsule by mouth once daily. No current facility-administered medications for this visit. ALLERGIES: ALLERGIES No Known Allergies PAST MEDICAL HISTORY Diagnosis Date B12 deficiency 2010 Elevated blood pressure 2011 Hearing loss Hypertension Hypothyroidism Major depressive disorder, recurrent episode, moderate (HCC) 01/26/2008 Other postablative hypothyroidism Severe major depression, single episode (HCC) 2008 PAST SURGICAL HISTORY Procedure Laterality Date CATARACT EXTRACTION HX Left 10/16/2017 CHOLECYSTECTOMY 2001 Cholecystectomy COLONOSCOPY FLX DX W/COLLJ SPEC WHEN PFRMD 07/07/2015 Colonoscopy EGD ESOPHAGOGASTRODUODENOSCOPY TRANSORAL DIAGNOSTIC 07/07/2015 EGD LAPAROSCOPY SURG RPR INITIAL INGUINAL HERNIA 12/24/06 RIGHT TONSILLECTOMY PRIMARY/SECONDARY <AGE 14 Tonsillectomy FAMILY HISTORY Problem Relation Age of Onset Cancer Mother stomach Colon Cancer Brother other (cirrhosis [Other]) Father None Brother None Brother None Brother None Sister Stroke Brother Social History Tobacco Use Smoking status: Former Current packs/day: 0.00 Average packs/day: 1 pack/day for 25.0 years (25.0 ttl pk-yrs) Types: Cigarettes Start date: 10/12/1955 Quit date: 10/11/1980 Years since quittin.9 Smokeless tobacco: Never Vaping Use Vaping status: Never Used Substance Use Topics Alcohol use: No Drug use: No Reviewed current medications, allergies, past medical history, surgical history, family history andsocial history today. REVIEW OF SYSTEMS Constitutional: (-) fever, (-) chills Cardiovascular: (-) chest pain Respiratory: (-) shortness of breath Gastrointestinal: (-) abdominal pain, (-) nausea, (-) vomiting Genitourinary: (-) dysuria, (-) urinary frequency, (-) hematuria Neurological: (-) dizziness Endocrine: (+) hypoglycemic episodes HEALTH MAINTENANCE: Reviewed health maintenance issues today and recommended the following in detail. Dilated Retinal Exam Never done DTaP,Tdap,Td Vaccine(1 - Tdap) due on 12/31/2008 RSV Vaccine(1 - 1-dose 75+ series) Never done Advance Directive Discussion due on 04/07/2024 Medicare Advantage Annual Wellness Visit Never done Urine Albumin:Creatinine Ratio due on 06/10/2024 LDL Cholesterol due on 06/10/2024 Diabetic Foot Exam due on 07/25/2024 Depression Screening due on 07/25/2024 Anxiety Screening due on 07/25/2024 HbA1C due on 08/15/2024 LAB REVIEWED: Labs: (08/06) - CBC: - Hemoglobin: 11.8 g/dL (low) - RBC indices: Normocytic, normochromic - Iron: Normal - B12: Normal - Folate: Normal - Ferritin: Normal - BMP: Kidney function stable - Stool test for occult blood: Negative - Urinalysis: - RBC present - Minimal yeast noted - No definite bacterial infection VITALS: BP 128/80 Pulse 76 Wt 68.5 kg (151 lb) SpO2 98% BMI 21.67 kg/m Last 4 Encounter Wt Readings: Date: Wt: 09/15/2024 68.5 kg (151 lb) 08/03/2024 68.5 kg (151 lb) 01/28/2024 72.6 kg (160 lb 0.9 oz) 07/26/2023 70.3 kg (155 lb) PHYSICAL EXAMINATION: GENERAL: NAD, alert and oriented. SKIN: Unremarkable, no rash or skin lesions. Skin tone normal, no pallor. HEAD: Normocephalic. LUNGS: Clear to auscultation bilaterally, no wheezes/rhonchi/rales. HEART: Regular rate and rhythm, no murmurs. No ectopy. EXTREMITIES: Normal, no deformities, no skin discoloration, no edema. ABDOMEN: Soft, non-tender, positive bowel sounds. NEURO: Awake, alert and oriented x3, cranial nerves II-XII grossly intact, normal gait, no involuntary motions. ASSESSMENT AND PLAN 1. Anemia, unspecified type (D64.9) 2. Microscopic hematuria (R31.29) - Persistent normocytic normochromic anemia with hemoglobin at 11.8 g/dL; iron, B12, folate, and ferritin levels are within normal limits. - Microscopic hematuria noted on recent urinalysis; no evidence of bacterial infection. - Ordered CBC, iron, and ferritin levels to be drawn today to assess response to oral iron supplementation. - Referred to urology for further evaluation of hematuria. - Recommended EGD and colonoscopy to rule out gastrointestinal sources of blood loss. - Continue oral iron supplementation. 3. Type 2 diabetes mellitus with stage 3a chronic kidney disease, without long- term current use of insulin (HCC) (E11.22) - Blood glucose levels have been more stable; recent reading was 83 mg/dL. - Advised to monitor for nocturnal hypoglycemia and verify low readings with a fingerstick glucose monitor. - Kidney function remains stable. - Continue follow-up with endocrinology. 4. Essential hypertension, benign (I10) - Blood pressure well-controlled at 120/80 mmHg. - Continue current antihypertensive regimen. 5. Vitamin B12 deficiency (E53.8) - B12 levels are within normal limits. - Continue current management. 6. Hypothyroidism, acquired (E03.9) - Condition stable. - Continue current thyroid hormone replacement therapy. - Check TSH (See patient after visit summary for additional instructions to patient) Kb Lackey MD Recording using Night Out software for draft documentation of the visit was discussed with the patient/authorized sales representative uniforms; all questions welcomed and answered. Patient/authorized sales representative uniforms agreed to proceed documented in this encounter[facility] Instructions* Patient Instructions* Kb Lackey MD - 09/15/2024 2:42 PM EDT - Continue taking your rhem-fyi-muupnsu iron supplement as directed. - Complete the blood tests ordered today (CBC, iron level, and ferritin). - Schedule and attend a urology appointment at the [facility] to evaluate the blood in your urine. - Schedule and attend gastroenterology appointments at the [facility] for an EGD and colonoscopy to check for any source of blood loss causing your anemia. - Keep monitoring your blood sugars, especially overnight; if your continuous monitor shows a low reading, verify it with a finger-stick check. - Continue follow-up with Dr. Kemp in endocrinology for diabetes management. - Plan to return in about six months for your Medicare wellness exam. documented in this encounterRegency [facility]06-11-2025 Evaluation note* Diagnosis Anemia, unspecified type- Primary Microscopic hematuria Type 2 diabetes mellitus with stage 3a chronic kidney disease, without long-term current use of insulin (HCC) Essential hypertension, benign Vitamin B12 deficiency Other B-complex deficiencies Hypothyroidism, acquired Unspecified hypothyroidism documented in this encounter [facility]05-15[facility] History of Present illness Narrative* Chacho Varela RPh - 08/19/2024 11:39 AM EDT Primary Care Pharmacy Panel Management This patient has been identified through Specialty Integration/Value-Based Operations Diabetes Registry Review by the primary care pharmacy team. After review, determined that the patient is not a candidate for pharmacy referral at this time dueto follows closely with Endo. SeeMichael Hector. Chacho Varela RPh documented in this encounterRegency Hospital [facility]05-15-2025 NoteHNO ID: [id number] Author: CHACHO VARELA RPh Service: ? Author Type: Pharmacist Type: Progress Notes Filed: 08/19/2024 11:39 Note Text: Primary Care Pharmacy Panel Management This patient has been identified through Specialty Integration/Value-Based Operations Diabetes Registry Review by the primary care pharmacy team. After review, determined that the patient is not a candidate for pharmacy referral at this time due to follows closely with Bernarda. Michael Mata. Chacho [facility]are[facility] NotePatient Outreach (PHMEWO) JEAN-CLAUDE DOUGLAS ([id number]) 1940 M Date Time Provider Department 08/19/24 NICHOLE CHACHO EDUARDO During your visit today, we recorded the following information about you: NicholeBritney martínezily [facility] 08/19/2024 11:39 AM Signed Primary Care Pharmacy Panel Management This patient has been identified through Specialty Integration/Value-Based Operations Diabetes Registry Review by the primary care pharmacy team. After review, determined that the patient is not a candidate for pharmacy referral at this time due to follows closely with Bernarda. SeeMichael Hector. Chachomariya Varela [facility] Allergies As of Date: 08/19/2024 (No Known Allergies) Date Reviewed: 08/03/2024 Reviewed by: Kemi Gaona MA - Fully Assessed Prescriptions as of 08/19/2024 - nystatin (MYCOSTATIN) cream Apply to affected area two times a day. - cyanocobalamin (VITAMIN B-12) 1,000 mcg tab Take 1 tablet by mouth once daily. - lisinopril (ZESTRIL) 30 mg tablet Take 1 tablet by mouth once daily. - levothyroxine (SYNTHROID) 125 mcg tablet Take 1 tablet by mouth once daily. Take on empty stomach. For Thyroid - metFORMIN ER (GLUCOPHAGE XR) 500 mg 24 hr tablet Take 2 tablets by mouth twice daily. - blood sugar diagnostic (BLOOD GLUCOSE TEST) test strip Test blood sugar(s) 1 times daily. Dx: Type 2 DM - Uncontrolled E11.65 Insulin: No - Lancets lancets Test blood sugar(s) 1 times daily. Dx: Type 2 DM - Uncontrolled E11.65 Insulin: Yes - insulin aspart prot/insuln asp (NOVOLOG MIX 70-30 SUBCUTANEOUS) Inject subcutaneously two times a day with meals. Per [facility] 24 units every morning and 10 units qhs - ferrous sulfate 325 mg (65 mg iron) tablet Take 325 mg by mouth. - mv,iron,rnl-BN-ovabuqw cmb.24 400 mcg tab Take 1 tablet by mouth once daily. - Cholecalciferol, Vitamin D3, 1,000 unit cap Take 1 capsule by mouth once daily. Problem List As Of Date 08/19/2024 Noted Resolved Hypothyroidism [E03.9] 06/17/2005 INGUINAL HERNIA, UNILATERAL W/O GANGRENE/OBSTRU*01/05/2007 10/06/2009 Major depressive disorder, recurrent, moderate *01/26/2008 12/23/2022 Tremor [R25.1] 12/30/2008 Dementia [F03.90] 03/20/2009 05/05/2017 Vitamin B12 Deficiency [E53.8] 06/30/2009 Hearing Loss [H91.90] 10/06/2009 Vitamin D deficiency [E55.9] 01/23/2010 Essential hypertension, benign [I10] 11/22/2011 Blood in stool [K92.1] 07/07/2015 04/25/2016 Family history of colon cancer [Z80.0] 07/07/2015 Iron deficiency anemia [D50.9] 04/26/2016 Chronic renal insufficiency, stage 3 (moderate)*04/28/2018 02/19/2024 Type 2 diabetes mellitus with stage 3a chronic *10/13/2019 Advanced care planning/counseling discussion [Z*06/15/2021 Acute hyperglycemia [R73.9] 12/18/2021 12/23/2022 Dehydration [E86.0] 12/18/2021 12/23/2022 Diabetes mellitus (HCC) [E11.9] 12/18/2021 12/23/2022 Acute kidney injury (HCC) [N17.9] 12/18/2021 12/23/2022 Encounter Status:Closed by CHACHO VARELA on 08/19/24[facility] 08-09-2024 Telephone encounter Note* Telephone Encounter - Salomon Ashby LPN - 08/09/2024 12:14 PM EDT Notified Scarlet. [facility]05-05-[facility]25 Miscellaneous Notes* Telephone Encounter - Salomon Ashby LPN - 08/09/2024 12:14 PM EDT Notified Scarlet. * Telephone Encounter - Kb Lackey MD - 08/09/2024 11:51 AM EDT Ok. I called in a cream to use topically as well. * Telephone Encounter - Salomon Ashby LPN - 08/09/2024 11:02 AM EDT Scarlet is not sure how much Valentín is going to want to work up? She will talk to him about below. She knows he is taking the iron. She isn't aware of any rash but knows he is wearing a pad at night due to trouble holding urine. She now wonders if maybe does have some rash there from that? Does know that has used some lotion. Stephaniereed talk to him about urology. She will start with IFOBT for sure but not sure about scope due to his age? After doing IFOBT may consider. Will recheck lab in 1 month. * Telephone Encounter - Kb Lackey MD - 08/09/2024 10:13 AM EDT Urine is not showing a uti. Does show blood. ? Slight yeast. Any rash in groin? He is more anemic. His renal function is stable. Sometimes the anemia can be related to his renal function but need to rule out some causes. 1, see urology for blood in urine. 2. See surgery for anemia. Unless he has had more recent scopes than 2016. 3. Make sure still on iron 4. Check ifobt. 5 recheck labs in one month. documented in this encounterReg[facility]05-05-2025 Telephone encounter Note * Telephone Encounter - Kb Lackey MD - 08/09/2024 11:51 AM EDT Ok. I called in a cream to use topically as well. [facility]05-05-[facility] Telephone encounter Note* Telephone Encounter - Salomon Ashby LPN - 08/09/2024 11:02 AM EDT Scarlet is not sure how much Valentín is going to want to work up? She will talk to him about below. She knows he is taking the iron. She isn't aware of any rash but knows he is wearing a pad at night due to trouble holding urine. She now wonders if maybe does have some rash there from that? Does know that has used some lotion. Stephaniewill talk to him about urology. She will start with IFOBT for sure but not sure about scope due to his age? After doing IFOBT may consider. Will recheck lab in 1 month. [facility] Telephone encounter Note* Telephone Encounter - Kb Lackey MD - 08/09/2024 10:13 AM EDT Urine is not showing a uti. Does show blood. ? Slight yeast. Any rash in groin? He is more anemic. His renal function is stable. Sometimes the anemia can be related to his renal function but need to rule out some causes. 1, see urology for blood in urine. 2. See surgery for anemia. Unless he has had more recent scopes than 2016. 3. Make sure still on iron 4. Check ifobt. 5 recheck labs in one month. [facility]04-29[facility]25 NoteHNO ID: [id number] Author: KB LACKEY MD Service: ? Author Type: Physician Type: Progress Notes Filed: 08/03/2024 10:24 Note Text: Patient presents with: Hospital F/U HPI: Patient presents today for office visit for HOSPITAL/ER FOLLOW UP: Reason for visit: low blood sugar levels and increased confusion. Which facility: [facility] Date of visit: 07/26/24-07/28/24 Diagnosis: Acute Cystitis with hematuria Testing done: workup included UA and blood work. Treatment given: UA indicated cystitis, creatinine was elevated. BS was 179. BS were monitored and insulin was adjusted. Given oral abx. Completed today. Glimepiride d/c Current symptoms: None No culture apparently was taken before beginning antibiotics. Sugars are usually managed by Dr Justo bauman. He is still having occasional hypoglycemic spells however he is using a cgm. Suggested he double check with a fingerstick. Only had one symptomatic. I suggested he might be having some falsely low sugars. He is then treating by eating. He sees bernarda today. No hx of uti issues. Feels fine now. He has finished his last antibiotic today. No fever or chills. No dysuria or hematuria. No urgency. No nausea or vomiting. No cough or congestion. No chest pain or shortness of breath. He was mildly anemic and had a mildly elevated. He never came back in for labs that were to be rechecked after his last ov. MEDICATIONS: Current Outpatient Medications Medication Sig cyanocobalamin (VITAMIN B-12) 1,000 mcg tab Take 1 tablet by mouth once daily. lisinopril (ZESTRIL) 30 mg tablet Take 1 tablet by mouth once daily. levothyroxine (SYNTHROID) 125 mcg tablet Take 1 tablet by mouth once daily. Take on empty stomach. For Thyroid metFORMIN ER (GLUCOPHAGE XR) 500 mg 24 hr tablet Take 2 tablets by mouth twice daily. blood sugar diagnostic (BLOOD GLUCOSE TEST) test strip Test blood sugar(s) 1 times daily. Dx: Type 2 DM - Uncontrolled E11.65 Insulin: No Lancets lancets Test blood sugar(s) 1 times daily. Dx: Type 2 DM - Uncontrolled E11.65 Insulin: Yes insulin aspart prot/insuln asp (NOVOLOG MIX 70-30 SUBCUTANEOUS) Inject subcutaneously two times a day with meals. Per [facility] 24 units every morning and 10 units qhs ferrous sulfate 325 mg (65 mg iron) tablet Take 325 mg by mouth. mv,iron,oin-TD-zdbgmqj cmb.24 400 mcg tab Take 1 tablet by mouth once daily. Cholecalciferol, Vitamin D3, 1,000 unit cap Take 1 capsule by mouth once daily. glimepiride (AMARYL) 2 mg tablet Take 2 mg by mouth twice daily with meals. Updated per endo note (Patient not taking: Reported on 08/03/2024) No current facility-administered medications for this visit. ALLERGIES: ALLERGIES No Known Allergies PAST MEDICAL HISTORY Diagnosis Date B12 deficiency 2010 Elevated blood pressure 2011 Hearing loss Hypertension Hypothyroidism Major depressive disorder, recurrent episode, moderate (HCC) 01/26/2008 Other postablative hypothyroidism Severe major depression, single episode (HCC) 2008 PAST SURGICAL HISTORY Procedure Laterality Date CATARACT EXTRACTION HX Left 10/16/2017 CHOLECYSTECTOMY 2000 Cholecystectomy COLONOSCOPY FLX DX W/COLLJ SPEC WHEN PFRMD 07/07/2015 Colonoscopy EGD ESOPHAGOGASTRODUODENOSCOPY TRANSORAL DIAGNOSTIC 07/07/2015 EGD LAPAROSCOPY SURG RPR INITIAL INGUINAL HERNIA 12/24/06 RIGHT TONSILLECTOMY PRIMARY/SECONDARY Tonsillectomy FAMILY HISTORY Problem Relation Age of Onset Cancer Mother stomach Colon Cancer Brother other (cirrhosis [Other]) Father None Brother None Brother None Brother None Sister Stroke Brother Social History Tobacco Use Smoking status: Former Current packs/day: 0.00 Average packs/day: 1 pack/day for 25.0 years (25.0 ttl pk-yrs) Types: Cigarettes Start date: 10/12/1955 Quit date: 10/11/1980 Years since quittin.8 Smokeless tobacco: Never Vaping Use Vaping status: Never Used Substance Use Topics Alcohol use: No Drug use: No Reviewed current medications, allergies, past medical history, surgical history, family history and social history today. REVIEW OF SYSTEMS No bloody or black stools. No diarrhea or constipation. All other reviewed and negative other than HPI. VITALS: BP 113/63 Pulse 68 Ht 177.8 cm (5' 10) Wt 68.5 kg (151 lb) BMI 21.67 kg/m? Last 4 Encounter Wt Readings: Date: Wt: 08/03/2024 68.5 kg (151 lb) 01/28/2024 72.6 kg (160 lb 0.9 oz) 07/26/2023 70.3 kg (155 lb) 12/23/2022 69.9 kg (154 lb) PHYSICAL EXAMINATION: General appearance: Well appearing, alert, in no acute distress, well-hydrated, well nourished. Skin: Skin color, texture, turgor normal, no suspicious rashes or lesions Head: Normocephalic, no masses, lesions, tenderness or abnormalities Lungs: Lungs clear to auscultation. No wheezing, rhonchi, rales Heart: RRR without murmur, gallop, or rubs. No ectopy Abdomen: Normal abdominal exam, Abdomen soft, non-tender. Bowel sounds normal. (more content not included)...[facility]04-29-2025 History of Present illness Narrative* Kb Lackey MD - 08/03/2024 10:00 AM EDT Patient presents with: Hospital F/U HPI: Patient presents today for office visit for HOSPITAL/ER FOLLOW UP: Reason for visit: low blood sugar levels and increased confusion. Which facility: [facility] Date of visit: 07/26/24-07/28/24 Diagnosis: Acute Cystitis with hematuria Testing done: workup included UA and blood work. Treatment given: UA indicated cystitis, creatinine was elevated. BS was 179. BS were monitored and insulin was adjusted. Given oral abx. Completed today. Glimepiride d/c Current symptoms: None No culture apparently was taken before beginning antibiotics. Sugars are usually managed by Dr Justo bauman. He is still having occasional hypoglycemic spells however he is using a cgm. Suggested he double check with a fingerstick. Only had one symptomatic. I suggested he might be having some falsely low sugars. He is then treating by eating. He sees endo today. No hx of uti issues. Feels fine now. He has finished his last antibiotic today. No fever or chills. No dysuria or hematuria. No urgency. No nausea or vomiting. No cough or congestion. No chest pain or shortness of breath. He was mildly anemic and had a mildly elevated. He never came back in for labs that were to be rechecked after his last ov. MEDICATIONS: Current Outpatient Medications Medication Sig cyanocobalamin (VITAMIN B-12) 1,000 mcg tab Take 1 tablet by mouth once daily. lisinopril (ZESTRIL) 30 mg tablet Take 1 tablet by mouth once daily. levothyroxine (SYNTHROID) 125 mcg tablet Take 1 tablet by mouth once daily. Take on empty stomach. For Thyroid metFORMIN ER (GLUCOPHAGE XR) 500 mg 24 hr tablet Take 2 tablets by mouth twice daily. blood sugar diagnostic (BLOOD GLUCOSE TEST) test strip Test blood sugar(s) 1 times daily. Dx: Type 2 DM - Uncontrolled E11.65 Insulin: No Lancets lancets Test blood sugar(s) 1 times daily. Dx: Type 2 DM - Uncontrolled E11.65 Insulin: Yes insulin aspart prot/insuln asp (NOVOLOG MIX 70-30 SUBCUTANEOUS) Inject subcutaneously two times a day with meals. Per [facility] 24 units every morning and 10 units qhs ferrous sulfate 325 mg (65 mg iron) tablet Take 325 mg by mouth. mv,iron,ezl-CZ-hqsjkda cmb.24 400 mcg tab Take 1 tablet by mouth once daily. Cholecalciferol, Vitamin D3, 1,000 unit cap Take 1 capsule by mouth once daily. glimepiride (AMARYL) 2 mg tablet Take 2 mg by mouth twice daily with meals. Updated per endo note (Patient not taking: Reported on 08/03/2024) No current facility-administered medications for this visit. ALLERGIES: ALLERGIES No Known Allergies PAST MEDICAL HISTORY Diagnosis Date B12 deficiency 2010 Elevated blood pressure 2011 Hearing loss Hypertension Hypothyroidism Major depressive disorder, recurrent episode, moderate (HCC) 01/26/2008 Other postablative hypothyroidism Severe major depression, single episode (HCC) 2008 PAST SURGICAL HISTORY Procedure Laterality Date CATARACT EXTRACTION HX Left 10/16/2017 CHOLECYSTECTOMY 2001 Cholecystectomy COLONOSCOPY FLX DX W/COLLJ SPEC WHEN PFRMD 07/07/2015 Colonoscopy EGD ESOPHAGOGASTRODUODENOSCOPY TRANSORAL DIAGNOSTIC 07/07/2015 EGD LAPAROSCOPY SURG RPR INITIAL INGUINAL HERNIA 12/24/06 RIGHT TONSILLECTOMY PRIMARY/SECONDARY <AGE 14 Tonsillectomy FAMILY HISTORY Problem Relation Age of Onset Cancer Mother stomach Colon Cancer Brother other (cirrhosis [Other]) Father None Brother None Brother None Brother None Sister Stroke Brother Social History Tobacco Use Smoking status: Former Current packs/day: 0.00 Average packs/day: 1 pack/day for 25.0 years (25.0 ttl pk-yrs) Types: Cigarettes Start date: 10/12/1955 Quit date: 10/11/1980 Years since quittin.8 Smokeless tobacco: Never Vaping Use Vaping status: Never Used Substance Use Topics Alcohol use: No Drug use: No Reviewed current medications, allergies, past medical history, surgical history, family history andsocial history today. REVIEW OF SYSTEMS No bloody or black stools. No diarrhea or constipation. All other reviewed and negative other than HPI. VITALS: BP 113/63 Pulse 68 Ht 177.8 cm (5' 10) Wt 68.5 kg (151 lb) BMI 21.67 kg/m Last 4 Encounter Wt Readings: Date: Wt: 08/03/2024 68.5 kg (151 lb) 01/28/2024 72.6 kg (160 lb 0.9 oz) 07/26/2023 70.3 kg (155 lb) 12/23/2022 69.9 kg (154 lb) PHYSICAL EXAMINATION: General appearance: Well appearing, alert, in no acute distress, well-hydrated, well nourished. Skin: Skin color, texture, turgor normal, no suspicious rashes or lesions Head: Normocephalic, no masses, lesions, tenderness or abnormalities Lungs: Lungs clear to auscultation. No wheezing, rhonchi, rales Heart: RRR without murmur, gallop, or rubs. No ectopy Abdomen: Normal abdominal exam, Abdomen soft, non-tender. Bowel sounds normal. No masses, organomegaly Extremities: No deformities, edema, skin discoloration, clubbing or cyanosis. Good capillary refill. Musculoskeletal: No joint swelling, deformity, or tenderness ASSESSMENT/PLAN: 1. Urinary tract infection with hematuria, site unspecified - ICD9: 599.0, 599.70, ICD10: N39.0, R31.9 (primary diagnosis) - treated. Repeat urine off of antibiotics. - URINALYSIS, WITH MICROSCOPIC - BACTERIAL CULTURE, URINE 2. Type 2 diabetes mellitus with stage 3a chronic kidney disease, without long- term current use of insulin (HCC) - ICD9: 250.40, 585.3, ICD10: E11.22, N18.31 - per endo. If cgm reading low, verify with glucometer. 3. Hypothyroidism, unspecified type - ICD9: 244.9, ICD10: E03.9 - stable. 4. Vitamin B12 deficiency - ICD9: 266.2, ICD10: E53.8 - VITAMIN B12 - FOLATE, SERUM 5. Iron deficiency anemia, unspecified iron deficiency anemia type - ICD9: 280.9, ICD10: D50.9 - IRON AND TIBC - FERRITIN 6. Renal insufficiency - ICD9: 593.9, ICD10: N28.9 - BASIC METABOLIC PANEL 7. Hypoglycemia - ICD9: 251.2, ICD10: E16.2 - as above. See endo. 8. Anemia, unspecified type - ICD9: 285.9, ICD10: D64.9 - check labs. - COMPLETE BLOOD COUNT AND DIFFERENTIAL - IRON AND TIBC - VITAMIN B12 - FOLATE, SERUM - FERRITIN - BASIC METABOLIC PANEL Kb Lackey MD RTO in six weeks or prn documented in this encounterReg[facility] Evaluation note* Diagnosis Urinary tract infection with hematuria, site unspecified- Primary Type 2 diabetes mellitus with stage 3a chronic kidney disease, without long-term current use of insulin (HCC) Hypothyroidism, unspecified type Vitamin B12 deficiency Other B-complex deficiencies Iron deficiency anemia, unspecified iron deficiency anemia type Renal insufficiency Unspecified disorder of kidney and ureter Hypoglycemia Hypoglycemia, unspecified Anemia, unspecified type documented in this encounter [facility]04-23-2025 [facility] Medical Records Department [address] [place] [id number] Discharge Summary 07/28/24 1406 MR#: [id number] Acct: [id number] Name: JEAN-CLAUDE DOUGLAS Rep #: [id number] : 1940 83 From: Dennys Buenrostro DO PCP: Dr. Kb Lackey MD Status:DIS IN [id number] Date of Admission: 07/26/24 Date of Discharge: 07/28/24 Primary Care Physician: Dr. Kb Lackey MD Reason For Visit: UTI, CHANTALE, INTERMITTENT HYPOGLYCEMIA AND Diagnosis Discharge Diagnosis (1) Acute cystitis with hematuria: Status: Acute Code(s): N30.01 - Acute cystitis with hematuria Plan 1. Acute cystitis-it appears that a urine culture was not obtained, I have decided to continue the patient's antibiotic at this time. #2 uncontrolled type 2 diabetes-patient's insulin will be adjusted, when the patient is discharged home he will resume his 70/30 insulin-appears that he will need a slightly smaller dose due to low blood sugars at home. Patient will also be taken off his Amaryl at the time of discharge #3 metabolic encephalopathy-secondary to acute cystitis and hypoglycemia-patient is alert during my examination and follows commands appropriately, patient does have baseline dementia #4 mild dehydration-I do not feel the patient has acute kidney injury #5 essential hypertension-patient is on lisinopril #6 hypothyroidism-patient is on Synthroid #7 dementia-complicates care, management, recovery, and prognosis Total clinical time spent by myself addressing the patient's medical issues, reviewing all of his data, and collaborating with patient's care team: 35 minutes Medications at Discharge Home Medications ferrous sulfate 325 mg (65 mg iron) tablet 325 mg PO DAILY anemia 06/25/20 lancets 30 gauge and blood glucose strips combo pack ##1 06/27/20 cholecalciferol (vitamin D3) 25 mcg (1,000 unit) capsule 25 mcg PO DAILY vitamin 07/18/20 metformin 500 mg tablet,extended release 24 hr 1,000 mg (2 x 500 mg) PO BID diabetes #360 tabs 11/25/23 pen needle, diabetic, safety 30 gauge x 1/3 #100 ea 01/05/24 cyanocobalamin (vitamin B-12) 1,000 mcg tablet 1,000 mcg PO DAILY 07/26/24 levothyroxine 125 mcg tablet 125 mcg PO DAILY 07/26/24 lisinopril 30 mg tablet 30 mg PO DAILY 07/26/24 cephalexin 500 mg tablet 500 mg PO BID #10 tabs 07/28/24 insulin NPH-regular 70-30 U-100 insulin 100 unit/mL subcutaneous pen (Novolin 70-30 FlexPen U-100 Insulin) See Rx Instructions subcut BID #1 mL 07/28/24 Hospital Course Operations None Procedures None Summary of Care Provided Minutes Spent on Discharge: 32 Hospital Course: This 83-year-old white male was seen in the emergency room at [facility] due to low blood sugar levels at home and increased confusion. Workup in the emergency room included a UA which indicated the patient had cystitis, creatinine was elevated at 1.64 and BUN was 35. Patient's blood sugar was 179. Patient was admitted for acute cystitis, metabolic encephalopathy, and uncontrolled type 2 diabetes. Blood sugars were monitored and his insulin was adjusted. It was noted on admission that the admitting physician felt he had acute kidney injury- this examiner did not feel that that was the case and that he was dehydrated. Patient was seen by PT and OT, there were no untoward events during his hospitalization. On 07/28/2024, patient was seen and examined: On examination he appeared in good health and spirits. Vital signs as documented. Skin warm and dry and without overt rashes. Neck without JVD, neck was supple, trachea midline, thyroid was normal. Lungs clear bilaterally, normal air movement was noted. Heart exam notable for regular rhythm, normal sounds and absence of murmurs, rubs or gallops. Abdomen unremarkable and without evidence of organomegaly, masses, or abdominal aortic enlargement. Bowel sounds are present, abdomen is not distended. Extremities nonedematous, no cyanosis was noted, no clubbing was noted. Neuro: Cranial nerves II through XII are grossly intact, no focal motor deficits were noted, sensation to light touch and pinprick intact, motor exam 5/5 throughout. Psych: Patient is alert and oriented x3, he does not appear anxious or depressed, he does not appear agitated. Patient was felt to be stable for discharge home on 07/28/2024. Weight / BMI Weight Weight: 67.7 kg Body Mass Index (BMI) 21.4 ABG / Lab / Microbiology Data 07/27/24 04:20 07/28/24 06:42 Laboratory: Laboratory Results - last 24 hr 07/26/24 18:35: Urine Opiates Screen NEGATIVE, U Buprenorphine Qual NEGATIVE, Ur Oxycodone Screen NEGATIVE, Urine Methadone Screen NEGATIVE, Urine Fentanyl Screen NEGATIVE, Ur Barbiturates Screen NEGATIVE, Ur Phencyclidine Scrn NEGATIVE, Ur Amphetamines Screen NEGATIVE, U Benzodiazepines Scrn NEGATIVE, Urine Cocaine Screen NEGATIVE, (more content not included)...[facility]04-21-2025 Evaluation note* Diagnosis Onset Date Resolution Status Admit Date Acute cystitis with hematuria inacti ve July 26, 2024 8:05pm Acute metabolic encephalopathy inact yadi July 26, 2024 8:05pm Adverse drug reaction inactive Jul 8:05pm CHANTALE (acute kidney injury) inactive July 26, 2024 8:05pm Hypoglycemia associated with type 2 diabetes mellitus inactive July 072024 8:05pm Benign essential hypertension chroni c August 03, 2024 1:22pm Dementia chronic August 03 1:22pm Diabetes chronic August 03 1:22pm Hypothyroidism (acquired) chronic August 03, 2024 1:22pm Benign essential hypertension chroni c November 22, 2024 1:22pm Dementia chronic November 22, 2 025 1:22pm Diabetes chronic November 22 025 1:22pm Hypothyroidism (acquired) chronic November 22, 2024 1:22pm [employer] Work Phone: [phone] NoteHNO ID: [id number] Author: ?, ?, ? Service: ? Author Type: ? Type: Progress Notes Filed: 07/09/2024 11:15 Note Text: POPULATION HEALTH NAVIGATION OUTREACH Action/FYI Patient outreach for HCC gaps; AWV,KED, DIABETIC EYE. Spoke with patient's about gaps. Declined AWV. Eye done OSH but is aware and due in KED pended. Appointment notes updated. Reason for Outreach Care Gap/HCC or Scheduling Wellness Visits Care Gaps due: Medicare Annual Wellness Visit Diabetic Eye Exam KED Patient Contacted: Spoke to patient/parent/or legal guardian Patient identified by name and : Yes Care Gap/HCC/Scheduling Wellness actions taken: Patient scheduled/pended orders: KERay 08/02/2024 in [facility] with KB LACKEY - 6 month follow up, HCC; awv, ked,diabeti eye exam Updated appointment note HCC related Navigation Signature: Amna Hightower July 09, 2024 11:12 [facility]04-04-2025 History of Present illness Narrative* Amna Zaldivar - 07/09/2024 11:12 AM EDT POPULATION HEALTH NAVIGATION OUTREACH Action/FYI Patient outreach for HCC gaps; AWV,KED, DIABETIC EYE. Spoke with patient's about gaps. Declined AWV. Eye done OSH but is aware and due in Dec. KED pended. Appointment notes updated. Reason for Outreach Care Gap/HCC or Scheduling Wellness Visits Care Gaps due: Medicare Annual Wellness Visit Diabetic Eye Exam KED Patient Contacted: Spoke to patient/parent/or legal guardian Patient identified by name and : Yes Care Gap/HCC/Scheduling Wellness actions taken: Patient scheduled/pended orders: CHINO 08/02/2024 in [facility] with KB LACKEY - 6 month follow up, HCC; fanny, chino,diabeti eye exam Updated appointment note HCC related Navigation Signature: Amna Hightower July 09, 2024 11:12 AM [facility]25 NoteHNO ID: [id number] Author: ?, ?, ? Service: ? Author Type: ? Type: Progress Notes Filed: 07/09/2024 11:16 Note Text: Dr. Lackey, Please approve these orders for the patient to be completed prior to their appointment. Additionally, feel free to place any other orders you deem necessary. Thank you! Pended Orders ID Status Description Pended By When Reason [id number] Pended BASIC METABOLIC PANEL Amna Zaldivar 07/09/24 1111 [id number] Pended ALBUMIN/CREATININE RATIO, URINE Ariadne Hightower, Amna 07/09/24 1111[facility]04-04-2025 History of Present illness Narrative* Amna Zaldivar - 07/09/2024 11:[address] Lackey, Please approve these orders for the patient to be completed prior to their appointment. Additionally, feel free to place any other orders you deem necessary. Thank you! Pended Orders ID Status Description Pended By When Reason [id number] Pended BASIC METABOLIC PANEL Amna Zaldivar 07/09/24 1111 [id number] Pended ALBUMIN/CREATININE RATIO, URINE Ariadne Hightower, Amna 07/09/24 1111 documented in [facility] encounterReg[facility] Evaluation note* Diagnosis Type 2 diabetes mellitus with stage 3a chronic kidney disease, without long-term current use of insulin (HCC)- Primary documented in this encounter [facility]04-04-2025 NotePatient Outreach (NETNAV) JEAN-CLAUDE DOUGLAS ([id number]) 1940 M Date Time Provider Department 07/09/24 KB LACKEY During your visit today, we recorded the following information about you: Amna Zaldivar 07/09/2024 11:[address] Lackey, Please approve these orders for the patient to be completed prior to their appointment. Additionally, feel free to place any other orders you deem necessary. Thank you! Pended Orders ID Status Description Pended By When Reason [id number] Pended BASIC METABOLIC PANEL Amna Zaldivar 07/09/24 1111 [id number] Pended ALBUMIN/CREATININE RATIO, URINE Amna Zaldivar 07/09/24 1111 Allergies As of Date: 07/09/2024 (No Known Allergies) Date Reviewed: 01/28/2024 Reviewed by: Mone Arroyo LPN - Fully Assessed Primary Visit Diagnosis:Type 2 diabetes mellitus with stage 3a chronic kidney disease, without long-term current use of insulin (HCC) [E11.22, N18.31] Order(s):BASIC METABOLIC PANEL [SQBMP] Order #: [id number] FUTURE ALBUMIN/CREATININE RATIO, URINE [SQUACR] Order #: [id number] FUTURE Prescriptions as of 07/09/2024 - cyanocobalamin (VITAMIN B-12) 1,000 mcg tab Take 1 tablet by mouth once daily. - lisinopril (ZESTRIL) 30 mg tablet Take 1 tablet by mouth once daily. - levothyroxine (SYNTHROID) 125 mcg tablet Take 1 tablet by mouth once daily. Take on empty stomach. For Thyroid - metFORMIN ER (GLUCOPHAGE XR) 500 mg 24 hr tablet Take 2 tablets by mouth twice daily. - blood sugar diagnostic (BLOOD GLUCOSE TEST) test strip Test blood sugar(s) 1 times daily. Dx: Type 2 DM - Uncontrolled E11.65 Insulin: No - Lancets lancets Test blood sugar(s) 1 times daily. Dx: Type 2 DM - Uncontrolled E11.65 Insulin: Yes - insulin aspart prot/insuln asp (NOVOLOG MIX 70-30 SUBCUTANEOUS) Inject subcutaneously twice daily with meals. Taking 20 units in AM and 8 units in PM. Per endo sees Dr Kemp - ferrous sulfate 325 mg (65 mg iron) tablet Take 325 mg by mouth. - glimepiride (AMARYL) 2 mg tablet Take 2 mg by mouth twice daily with meals. Updated per endo note - mv,iron,paz-PC-vfypzvf cmb.24 400 mcg tab Take 1 tablet by mouth once daily. - Cholecalciferol, Vitamin D3, 1,000 unit cap Take 1 capsule by mouth once daily. Problem List As Of Date 07/09/2024 Noted Resolved Hypothyroidism [E03.9] 06/17/2005 INGUINAL HERNIA, UNILATERAL W/O GANGRENE/OBSTRU*01/05/2007 10/06/2009 Major depressive disorder, recurrent, moderate *01/26/2008 12/23/2022 Tremor [R25.1] 12/30/2008 Dementia [F03.90] 03/20/2009 05/05/2017 Vitamin B12 Deficiency [E53.8] 06/30/2009 Hearing Loss [H91.90] 10/06/2009 Vitamin D deficiency [E55.9] 01/23/2010 Essential hypertension, benign [I10] 11/22/2011 Blood in stool [K92.1] 07/07/2015 04/25/2016 Family history of colon cancer [Z80.0] 07/07/2015 Iron deficiency anemia [D50.9] 04/26/2016 Chronic renal insufficiency, stage 3 (moderate)*04/28/2018 02/19/2024 Type 2 diabetes mellitus with stage 3a chronic *10/13/2019 Advanced care planning/counseling discussion [Z*06/15/2021 Acute hyperglycemia [R73.9] 12/18/2021 12/23/2022 Dehydration [E86.0] 12/18/2021 12/23/2022 Diabetes mellitus (HCC) [E11.9] 12/18/2021 12/23/2022 Acute kidney injury (HCC) [N17.9] 12/18/2021 12/23/2022 Encounter Status:Closed by KB LACKEY on 07/09/24[facility] 07-09-2024 NotePatient Outreach (NETNAV) JEAN-CLAUDE DOUGLAS ([id number]) 1940 Date Time Provider Department 07/09/24 KB LACKEY NETNAV During your visit today, we recorded the following information about you: Amna Zaldivar 07/09/2024 11:15 AM Signed POPULATION HEALTH NAVIGATION OUTREACH Action/FYI Patient outreach for HCC gaps; AWV,KED, DIABETIC EYE. Spoke with patient's about gaps. Declined AWV. Eye done OSH but is aware and due in Dec. KED pended. Appointment notes updated. Reason for Outreach Care Gap/HCC or Scheduling Wellness Visits Care Gaps due: Medicare Annual Wellness Visit Diabetic Eye Exam KED Patient Contacted: Spoke to patient/parent/or legal guardian Patient identified by name and : Yes Care Gap/HCC/Scheduling Wellness actions taken: Patient scheduled/pended orders: KERay 08/02/2024 in [facility] with KB LACKEY - 6 month follow up, HCC; awv, ked,diabeti eye exam Updated appointment note HCC related Navigation Signature: Amna Hightower July 09, 2024 11:12 AM Allergies As of Date: 07/09/2024 (No Known Allergies) Date Reviewed: 01/28/2024 Reviewed by: Mone Arroyo LPN - Fully Assessed Reason for Visit: Population Health Navigation Outreach [3910] Cmt: Edna Virk Prescriptions as of 07/09/2024 - cyanocobalamin (VITAMIN B-12) 1,000 mcg tab Take 1 tablet by mouth once daily. - lisinopril (ZESTRIL) 30 mg tablet Take 1 tablet by mouth once daily. - levothyroxine (SYNTHROID) 125 mcg tablet Take 1 tablet by mouth once daily. Take on empty stomach. For Thyroid - metFORMIN ER (GLUCOPHAGE XR) 500 mg 24 hr tablet Take 2 tablets by mouth twice daily. - blood sugar diagnostic (BLOOD GLUCOSE TEST) test strip Test blood sugar(s) 1 times daily. Dx: Type 2 DM - Uncontrolled E11.65 Insulin: No - Lancets lancets Test blood sugar(s) 1 times daily. Dx: Type 2 DM - Uncontrolled E11.65 Insulin: Yes - insulin aspart prot/insuln asp (NOVOLOG MIX 70-30 SUBCUTANEOUS) Inject subcutaneously twice daily with meals. Taking 20 units in AM and 8 units in PM. Per endo sees Dr Kemp - ferrous sulfate 325 mg (65 mg iron) tablet Take 325 mg by mouth. - glimepiride (AMARYL) 2 mg tablet Take 2 mg by mouth twice daily with meals. Updated per endo note - mv,iron,rqq-JV-kwzszgq cmb.24 400 mcg tab Take 1 tablet by mouth once daily. - Cholecalciferol, Vitamin D3, 1,000 unit cap Take 1 capsule by mouth once daily. Problem List As Of Date 07/09/2024 Noted Resolved Hypothyroidism [E03.9] 06/17/2005 INGUINAL HERNIA, UNILATERAL W/O GANGRENE/OBSTRU*01/05/2007 10/06/2009 Major depressive disorder, recurrent, moderate *01/26/2008 12/23/2022 Tremor [R25.1] 12/30/2008 Dementia [F03.90] 03/20/2009 05/05/2017 Vitamin B12 Deficiency [E53.8] 06/30/2009 Hearing Loss [H91.90] 10/06/2009 Vitamin D deficiency [E55.9] 01/23/2010 Essential hypertension, benign [I10] 11/22/2011 Blood in stool [K92.1] 07/07/2015 04/25/2016 Family history of colon cancer [Z80.0] 07/07/2015 Iron deficiency anemia [D50.9] 04/26/2016 Chronic renal insufficiency, stage 3 (moderate)*04/28/2018 02/19/2024 Type 2 diabetes mellitus with stage 3a chronic *10/13/2019 Advanced care planning/counseling discussion [Z*06/15/2021 Acute hyperglycemia [R73.9] 12/18/2021 12/23/2022 Dehydration [E86.0] 12/18/2021 12/23/2022 Diabetes mellitus (HCC) [E11.9] 12/18/2021 12/23/2022 Acute kidney injury (HCC) [N17.9] 12/18/2021 12/23/2022 Encounter Status:Closed by AMNA ZALDIVAR on 07/09/24[facility]02-22-2025 Telephone encounter Note* Telephone Encounter - Kianna Burns - 05/29/2024 8:08 AM EST Prescription Refill Information The patient has been identified by name and date of : Yes Caregiver verified no other encounters exist for this prescription request: Yes Caregiver confirmed with patient/requestor that no other refills are due, in the near future, with this provider at this time: Yes The last office visit in the department: 01-28-24 Does the patient have a future office visit with this provider/department: Yes Requested Prescriptions Pending Prescriptions Disp Refills cyanocobalamin (VITAMIN B-12) 1,000 mcg tab 90 tablet 3 Sig: Take 1 tablet by mouth once daily. Kianna Hightower May 29, 2024 8:09 AM [facility]02-22-2025 Miscellaneous Notes* Telephone Encounter - Kianna Burns - 05/29/2024 8:08 AM EST Prescription Refill Information The patient has been identified by name and date of : Yes Caregiver verified no other encounters exist for this prescription request: Yes Caregiver confirmed with patient/requestor that no other refills are due, in the near future, with this provider at this time: Yes The last office visit in the department: 01-28-24 Does the patient have a future office visit with this provider/department: Yes Requested Prescriptions Pending Prescriptions Disp Refills cyanocobalamin (VITAMIN B-12) 1,000 mcg tab 90 tablet 3 Sig: Take 1 tablet by mouth once daily. Kianna Hightower May 29, 2024 8:09 AM documented in this encounterReg[facility]11-29-2024 NoteHNO ID: [id number] Author: KIANNA BARNETT RN Service: ? Author Type: Registered Nurse Type: Progress Notes Filed: 03/05/2024 12:26 Note Text: CDM Telephonic Outreach Provider Action/FYI Outreach Summary: No CDM concerns Wt. 160 lbs Contacted for: Routine Telephonic Outreach Contact made with patient: Yes Patient identified by name and date of . Discussed care with patient Are you experiencing any new or worsening symptoms you need to talk about today? No Disease Specific Do you check your blood pressure at home? Yes, Enter readings: not reported Do you have new or worsening shortness of breath with activity? No Do you feel like you are dehydrated for any reason, including not being able to eat or drink normally, or having less urine/much darker urine than normal for you? No Do you check your daily weight at home? Yes, Have you noticed a sudden gain in weight greater than three pounds in a day or three pounds in a week? No Based on director of assessment, the following disposition is advised: No symptoms or symptoms present, not severe. Routed to: No Action Needed DONTA Education Provided this Outreach: No Kianna Barnett RN March 05, 2024 12:25 [facility]11-29-2024 History of Present illness Narrative* Kianna Barnett RN - 03/05/2024 11:46 AM EST CDM Telephonic Outreach Provider Action/FYI Outreach Summary: No CDM concerns Wt. 160 lbs Contacted for: Routine Telephonic Outreach Contact made with patient: Yes Patient identified by name and date of . Discussed care with patient Are you experiencing any new or worsening symptoms you need to talk about today? No Disease Specific Do you check your blood pressure at home? Yes, Enter readings: not reported Do you have new or worsening shortness of breath with activity? No Do you feel like you are dehydrated for any reason, including not being able to eat or drink normally, or having less urine/much darker urine than normal for you? No Do you check your daily weight at home? Yes, Have you noticed a sudden gain in weight greater than three pounds in a day or three pounds in a week? No Based on director of assessment, the following disposition is advised: No symptoms or symptoms present, not severe. Routed to: No Action Needed DONTA Education Provided this Outreach: No Kianna Barnett RN March 05, 2024 12:25 PM documented in this encounterReg[facility]11-29-2024 NotePatient Outreach ([facility]) JEAN-CLAUDE DOUGLAS ([id number]) 1940 M Date Time Provider Department 03/05/24 KIANNA BARNETT [facility] During your visit today, we recorded the following information about you: Kianna Barnett RN 03/05/2024 12:26 PM Signed CDM Telephonic Outreach Provider Action/FYI Outreach Summary: No CDM concerns Wt. 160 lbs Contacted for: Routine Telephonic Outreach Contact made with patient: Yes Patient identified by name and date of . Discussed care with patient Are you experiencing any new or worsening symptoms you need to talk about today? No Disease Specific Do you check your blood pressure at home? Yes, Enter readings: not reported Do you have new or worsening shortness of breath with activity? No Do you feel like you are dehydrated for any reason, including not being able to eat or drink normally, or having less urine/much darker urine than normal for you? No Do you check your daily weight at home? Yes, Have you noticed a sudden gain in weight greater than three pounds in a day or three pounds in a week? No Based on director of assessment, the following disposition is advised: No symptoms or symptoms present, not severe. Routed to: No Action Needed DONTA Education Provided this Outreach: No Kianna Barnett RN March 05, 2024 12:25 PM Allergies As of Date: 03/05/2024 (No Known Allergies) Date Reviewed: 01/28/2024 Reviewed by: Mone Arroyo LPN - Fully Assessed Reason for Visit: community monitoring [Other] Cmt: CDM telephonic Prescriptions as of 03/14/2024 - lisinopril (ZESTRIL) 30 mg tablet Take 1 tablet by mouth once daily. - levothyroxine (SYNTHROID) 125 mcg tablet Take 1 tablet by mouth once daily. Take on empty stomach. For Thyroid - cyanocobalamin (VITAMIN B-12) 1,000 mcg tab Take 1 tablet by mouth once daily. - metFORMIN ER (GLUCOPHAGE XR) 500 mg 24 hr tablet Take 2 tablets by mouth twice daily. - blood sugar diagnostic (BLOOD GLUCOSE TEST) test strip Test blood sugar(s) 1 times daily. Dx: Type 2 DM - Uncontrolled E11.65 Insulin: No - Lancets lancets Test blood sugar(s) 1 times daily. Dx: Type 2 DM - Uncontrolled E11.65 Insulin: Yes - insulin aspart prot/insuln asp (NOVOLOG MIX 70-30 SUBCUTANEOUS) Inject subcutaneously twice daily with meals. Taking 20 units in AM and 8 units in PM. Per endo sees Dr Kemp - ferrous sulfate 325 mg (65 mg iron) tablet Take 325 mg by mouth. - glimepiride (AMARYL) 2 mg tablet Take 2 mg by mouth twice daily with meals. Updated per endo note - mv,iron,rvl-CN-fponcvz cmb.24 400 mcg tab Take 1 tablet by mouth once daily. - Cholecalciferol, Vitamin D3, 1,000 unit cap Take 1 capsule by mouth once daily. Problem List As Of Date 03/05/2024 Noted Resolved Hypothyroidism [E03.9] 06/17/2005 INGUINAL HERNIA, UNILATERAL W/O GANGRENE/OBSTRU*01/05/2007 10/06/2009 Major depressive disorder, recurrent, moderate *01/26/2008 12/23/2022 Tremor [R25.1] 12/30/2008 Dementia [F03.90] 03/20/2009 05/05/2017 Vitamin B12 Deficiency [E53.8] 06/30/2009 Hearing Loss [H91.90] 10/06/2009 Vitamin D deficiency [E55.9] 01/23/2010 Essential hypertension, benign [I10] 11/22/2011 Blood in stool [K92.1] 07/07/2015 04/25/2016 Family history of colon cancer [Z80.0] 07/07/2015 Iron deficiency anemia [D50.9] 04/26/2016 Chronic renal insufficiency, stage 3 (moderate)*04/28/2018 02/19/2024 Type 2 diabetes mellitus with stage 3a chronic *10/13/2019 Advanced care planning/counseling discussion [Z*06/15/2021 Acute hyperglycemia [R73.9] 12/18/2021 12/23/2022 Dehydration [E86.0] 12/18/2021 12/23/2022 Diabetes mellitus (HCC) [E11.9] 12/18/2021 12/23/2022 Acute kidney injury (HCC) [N17.9] 12/18/2021 12/23/2022 Encounter Status:Closed by KIANNA BARNETT on 03/05/24[facility]10-31-2024 History of Present illness Narrative* Kianna Barnett RN - 02/05/2024 1:33 PM EDT CDM Telephonic Outreach Provider Action/FYI Outreach Summary: No CDM concerns Wt. 160 lbs Contacted for: Routine Telephonic Outreach Contact made with patient: Yes Patient identified by name and date of . Discussed care with patient Are you experiencing any new or worsening symptoms you need to talk about today? No Disease Specific Do you check your blood pressure at home? Yes, Enter readings: not reported Do you have new or worsening shortness of breath with activity? No Do you feel like you are dehydrated for any reason, including not being able to eat or drink normally, or having less urine/much darker urine than normal for you? No Do you check your daily weight at home? Yes, Have you noticed a sudden gain in weight greater than three pounds in a day or three pounds in a week? No Based on director of assessment, the following disposition is advised: No symptoms or symptoms present, not severe. Routed to: No Action Needed DONTA Education Provided this Outreach: No Kianna Barnett RN February 05, 2024 1:40 PM documented in this encounterReg[facility]10-24-2024 Telephone encounter Note * Telephone Encounter - Salomon Ashby LPN - 01/29/2024 11:36 AM EDT Patient notified. [facility]10-24-2024 Miscellaneous Notes* Telephone Encounter - Salomon Ashby LPN - 01/29/2024 11:36 AM EDT Patient notified. * Telephone Encounter - Kb Lackey MD - 01/29/2024 8:26 AM EDT Slight anemic. Kidney function slightly worse. Push fluids. Recheck labs in two weeks documented in this encounterRegency [facility]10-24-2024 Telephone encounter Note * Telephone Encounter - Kb Lackey MD - 01/29/2024 8:26 AM EDT Slight anemic. Kidney function slightly worse. Push fluids. Recheck labs in two weeks [facility]10-23-2024 Note* Addendum Note - Kb Lackey MD - 01/28/2024 9:58 AM EDTAddended by: KB LACKEY on: 01/28/2024 09:58 AM Modules accepted: Orders [facility]10-23-2024 Miscellaneous Notes* Addendum Note - Kb Lackey MD - 01/28/2024 9:58 AM EDTAddended by: KB LACKEY on: 01/28/2024 09:58 AM Modules accepted: Orders documented in this encounterRegency [facility]10-23-2024 History of Present illness Narrative* Kb Lackey MD - 01/28/2024 9:40 AM EDT No chief complaint on file. HPI: Patient presents today for office visit for routine 6 month follow up. HYPOTHYROID: Patient is compliant with medications: Yes Patient has changes in energy: No Patient has changes in hair or skin: No Patient has temperature intolerance: No Patient has weight changes: No DM: Reports overall feeling well. Medication side effects: Yes. Home sugar check frequency/results:using cgm. Hypoglycemic spells: rare hypoglycemic spells.. Vision Changes: just had eye exam. Foot lesions or numbness or pain: No. Sees Dr Kemp every six months, endo HTN: Patient is compliant with meds Yes Denies side effects: No. Chest pain: Yes. Dyspnea: No. Edema: No. Palpitations: No. Syncope: No. Headache: No. Dizziness: No. Still taking his b12 as well. Monitoring his kidney function MEDICATIONS: Current Outpatient Medications Medication Sig lisinopril (ZESTRIL) 30 mg tablet Take 1 tablet by mouth once daily. levothyroxine (SYNTHROID) 125 mcg tablet Take 1 tablet by mouth once daily. Take on empty stomach. For Thyroid cyanocobalamin (VITAMIN B-12) 1,000 mcg tab Take 1 tablet by mouth once daily. metFORMIN ER (GLUCOPHAGE XR) 500 mg 24 hr tablet Take 2 tablets by mouth twice daily. blood sugar diagnostic (BLOOD GLUCOSE TEST) test strip Test blood sugar(s) 1 times daily. Dx: Type 2 DM - Uncontrolled E11.65 Insulin: No Lancets lancets Test blood sugar(s) 1 times daily. Dx: Type 2 DM - Uncontrolled E11.65 Insulin: Yes insulin aspart prot/insuln asp (NOVOLOG MIX 70-30 SUBCUTANEOUS) Inject subcutaneously twice daily with meals. Taking 20 units in AM and 8 units in PM. Per endo sees Dr Kemp ferrous sulfate 325 mg (65 mg iron) tablet Take 325 mg by mouth. glimepiride (AMARYL) 2 mg tablet Take 2 mg by mouth twice daily with meals. Updated per endo note mv,iron,ztk-UT-wwrnimu cmb.24 400 mcg tab Take 1 tablet by mouth once daily. Cholecalciferol, Vitamin D3, 1,000 unit cap Take 1 capsule by mouth once daily. No current facility-administered medications for this visit. ALLERGIES: ALLERGIES No Known Allergies PAST MEDICAL HISTORY Diagnosis Date B12 deficiency 2010 Elevated blood pressure 2011 Hearing loss Hypertension Hypothyroidism Major depressive disorder, recurrent episode, moderate (HCC) 01/26/2008 Other postablative hypothyroidism Severe major depression, single episode (HCC) 2008 PAST SURGICAL HISTORY Procedure Laterality Date CATARACT EXTRACTION HX Left 10/16/2017 CHOLECYSTECTOMY 2000 Cholecystectomy COLONOSCOPY FLX DX W/COLLJ SPEC WHEN PFRMD 07/07/2015 Colonoscopy EGD ESOPHAGOGASTRODUODENOSCOPY TRANSORAL DIAGNOSTIC 07/07/2015 EGD LAPAROSCOPY SURG RPR INITIAL INGUINAL HERNIA 12/24/06 RIGHT TONSILLECTOMY PRIMARY/SECONDARY <AGE 14 Tonsillectomy FAMILY HISTORY Problem Relation Age of Onset Cancer Mother stomach Colon Cancer Brother other (cirrhosis [Other]) Father None Brother None Brother None Brother None Sister Stroke Brother Social History Tobacco Use Smoking status: Former Current packs/day: 0.00 Average packs/day: 1 pack/day for 25.0 years (25.0 ttl pk-yrs) Types: Cigarettes Start date: 10/12/1955 Quit date: 10/11/1980 Years since quittin.3 Smokeless tobacco: Never Vaping Use Vaping status: Never Used Substance Use Topics Alcohol use: No Drug use: No Reviewed current medications, allergies, past medical history, surgical history, family history andsocial history today. REVIEW OF SYSTEMS All other reviewed and negative other than HPI. HEALTH MAINTENANCE: Reviewed health maintenance issues today and recommended the following in detail. Dilated Retinal Exam -done in November DTaP,Tdap,Td Vaccine(1 - Tdap) due on 12/31/2008 Shingrix Vaccine(2 of 3) due on 01/17/2012 Influenza Vaccine(1) due on 12/07/2023 Covid-19 Vaccine(1 - 2023- season) Never done VITALS: BP 132/70 (BP Site: Left Arm, BP Position: Sitting, BP Cuff Size: Large Adult) Pulse 66 Temp 36.8 C (98.2 F) Resp 12 Ht 177.8 cm (5' 10) Wt 72.6 kg (160 lb 0.9 oz) SpO2 99% BMI 22.97 kg/m Last 4 Encounter Wt Readings: Date: Wt: 07/26/2023 70.3 kg (155 lb) 12/23/2022 69.9 kg (154 lb) 06/17/2022 69.9 kg (154 lb) 12/18/2021 64.5 kg (142 lb 3.2 oz) PHYSICAL EXAMINATION: General appearance: Well appearing, alert, in no acute distress, well-hydrated, well nourished. Skin: Skin color, texture, turgor normal, no suspicious rashes or lesions Head: Normocephalic, no masses, lesions, tenderness or abnormalities Lungs: Lungs clear to auscultation. No wheezing, rhonchi, rales Heart: RRR without murmur, gallop, or rubs. No ectopy Abdomen: Normal abdominal exam, Abdomen soft, non-tender. Bowel sounds normal. No masses, organomegaly Extremities: No deformities, edema, skin discoloration, clubbing or cyanosis. Good capillary refill. ASSESSMENT/PLAN: 1. Essential hypertension, benign - ICD9: 401.1, ICD10: I10 (primary diagnosis) - Controlled - Continue current medications 2. Vitamin B12 deficiency - ICD9: 266.2, ICD10: E53.8 - follow labs. 3. Chronic renal insufficiency, stage 3 (moderate) (HCC) - ICD9: 585.3, ICD10: N18.30 - stable. 4. Hypothyroidism, unspecified type - ICD9: 244.9, ICD10: E03.9 - stable. 5. Type 2 diabetes mellitus without complication, without long-term current use of insulin (HCC) - ICD9: 250.00, ICD10: E11.9 - Controlled - Continue current medications 6. Iron deficiency anemia, unspecified iron deficiency anemia type - ICD9: 280.9, ICD10: D50.9 - follow labs. 7. Vitamin D deficiency - ICD9: 268.9, ICD10: E55.9 - follow vit d Kb Lackey MD documented [facility] encounterReg[facility] History of Present illness Narrative* Kianna Barnett, RN - 01/08/2024 11:55 AM EDT CDM Telephonic Outreach Provider Action/FYI Outreach Summary: No CDM concerns . Spoke with spouse Scarlet. [facility] Contacted for: Routine Telephonic Outreach Contact made with patient: Yes Patient identified by name and date of . Discussed care with patient Are you experiencing any new or worsening symptoms you need to talk about today? No Disease Specific Do you check your blood pressure at home? Yes, Enter readings: 127/72 Do you have new or worsening shortness of breath with activity? No Do you feel like you are dehydrated for any reason, including not being able to eat or drink normally, or having less urine/much darker urine than normal for you? No Do you check your daily weight at home? Yes, Have you noticed a sudden gain in weight greater than three pounds in a day or three pounds in a week? No Based on director of assessment, the following disposition is advised: No symptoms or symptoms present, not severe. Routed to: No Action Needed DONTA Education Provided this Outreach: No Kianna Barnett RN January 08, 2024 12:07 PM documented in this encounterReg[facility]09-11-2024 Telephone encounter Note * Telephone Encounter - Keli Oliva LPN - 12/17/2023 2:38 PM EDT Patient has been identified by name and date of : Yes Patient phones for refill(s): Requested Prescriptions Pending Prescriptions Disp Refills lisinopril (ZESTRIL) 30 mg tablet 90 tablet 3 Sig: Take 1 tablet by mouth once daily. Date of last office visit in primary care: 07/26/2023 Date of next office visit in primary care: 01/28/2024 Please advise. Thank you. Keli Oliva LPN. [facility]09-11-2024 Miscellaneous Notes* Telephone Encounter - Keli Oliva LPN - 12/17/2023 2:38 PM EDT Patient has been identified by name and date of : Yes Patient phones for refill(s): Requested Prescriptions Pending Prescriptions Disp Refills lisinopril (ZESTRIL) 30 mg tablet 90 tablet 3 Sig: Take 1 tablet by mouth once daily. Date of last office visit in primary care: 07/26/2023 Date of next office visit in primary care: 01/28/2024 Please advise. Thank you. Keli Oliva LPN. documented in this encounterReg[facility]09-05-2024 History of Present illness Narrative* Kianna Barnett RN - 12/11/2023 11:53 AM EDT CDM Telephonic Outreach Provider Action/FYI Contacted for: Routine Telephonic Outreach Contact made with patient: Yes Patient identified by name and date of . Discussed care with spouse Are you experiencing any new or worsening symptoms you need to talk about today? No Disease Specific Do you check your blood pressure at home? Yes, Enter readings: 120/78 readings: checks 1-2 x/week Average SBP 120's, DBP 70's Do you have new or worsening shortness of breath with activity? No Baseline: No SOB Do you feel like you are dehydrated for any reason, including not being able to eat or drink normally, or having less urine/much darker urine than normal for you? No Baseline:Urine wnl; Stays hydrated Do you check your daily weight at home? Yes,Have you noticed a sudden gain in weight greater than three pounds in a day or three pounds in a week? No Lives with spouse; feels safe + food Based on director of assessment, the following disposition is advised: No symptoms or symptoms present, not severe. Routed to: No Action Needed DONTA Education Provided this Outreach: No Kianna Barnett RN December 11, 2023 12:04 PM Care Coordination next call- CKD HTN DM Patient CREEK Last CDM outreach contact: 12/11/23 No CDM concerns; spoke with spouse Scarlet. Baseline: 12/11/23 ADL, FALL, GOAL due: 11/12/24 . Chronic disease goal - 11/13/23- completed all goals SDOH : 12/11/23 documented in this encounterReg[facility]08-23-2024 Miscellaneous Notes* Telephone Encounter - Tiesha Recio LPN - 11/28/2023 8:48 AM EDT Prescription Refill Information The patient has been identified by name and date of : Yes Caregiver verified no other encounters exist for this prescription request: Yes Caregiver confirmed with patient/requestor that no other refills are due, in the near future, with this provider at this time: Yes The last office visit in the department: 07/26/23 Does the patient have a future office visit with this provider/department: Yes Requested Prescriptions Pending Prescriptions Disp Refills levothyroxine (SYNTHROID) 125 mcg tablet 30 tablet 11 Sig: Take 1 tablet by mouth once daily. Take on empty stomach. For Thyroid Tiesha Recio LPN November 28, 2023 8:48 AM documented in this encounterReg[facility]08-23-2024 Telephone encounter Note * Telephone Encounter - Tiesha Recio LPN - 11/28/2023 8:48 AM EDT Prescription Refill Information The patient has been identified by name and date of : Yes Caregiver verified no other encounters exist for this prescription request: Yes Caregiver confirmed with patient/requestor that no other refills are due, in the near future, with this provider at this time: Yes The last office visit in the department: 07/26/23 Does the patient have a future office visit with this provider/department: Yes Requested Prescriptions Pending Prescriptions Disp Refills levothyroxine (SYNTHROID) 125 mcg tablet 30 tablet 11 Sig: Take 1 tablet by mouth once daily. Take on empty stomach. For Thyroid Tiesha Recio LPN November 28, 2023 8:48 AM [facility]08-08-[facility] History of Present illness Narrative* Kianna Barnett, LEELA - 11/13/2023 10:18 AM EDT CDM Telephonic Outreach Provider Action/FYI Contacted for: Routine Telephonic Outreach Contact made with patient: Yes Patient identified by name and date of . Discussed care with spouse Are you experiencing any new or worsening symptoms you need to talk about today? No Disease Specific Do you check your blood pressure at home? Yes, Enter readings: not reported Do you have new or worsening shortness of breath with activity? No Do you feel like you are dehydrated for any reason, including not being able to eat or drink normally, or having less urine/much darker urine than normal for you? No Do you check your daily weight at home? Yes, Have you noticed a sudden gain in weight greater than three pounds in a day or three pounds in a week? No Based on director of assessment, the following disposition is advised: No symptoms or symptoms present, not severe. Routed to: No Action Needed DONTA Education Provided this Outreach: No Kianna Barnett RN November 13, 2023 10:22 AM Care Coordination next call- CKD HTN DM Patient CREEK Last CDM outreach contact: No CDM concerns; spoke with spouse Scarlet. Baseline: 06/02/23 ADL, FALL, GOAL due: 11/12/24 . Chronic disease goal - 11/13/23- completed all goals 09/20/22 -ckd . 05/01/23- reviewed zones/management with spouse 03/03/23- HTN -reviewed with pt. 08/21/23- DM- reviewed SDOH : 08/23/22 documented in this encounterReg[facility]06-13-2024 History of Present illness Narrative* Kinana Barnett RN - 09/18/2023 9:59 AM EDT CDM Telephonic Outreach Provider Action/FYI Contacted for: Routine Telephonic Outreach Contact made with patient: Yes Patient identified by name and date of . Discussed care with spouse Are you experiencing any new or worsening symptoms you need to talk about today? No Disease Specific Do you check your blood pressure at home? Yes, Enter readings: 128/78 Do you have new or worsening shortness of breath with activity? No Do you feel like you are dehydrated for any reason, including not being able to eat or drink normally, or having less urine/much darker urine than normal for you? No Do you check your daily weight at home? No Based on director of assessment, the following disposition is advised: No symptoms or symptoms present, not severe. Routed to: No Action Needed DONTA Education Provided this Outreach: No Kianna Barnett RN September 18, 2023 10:15 AM Care Coordination next call- CKD HTN DM Patient CREEK Last CDM outreach contact: 08/21/23- No CDM concerns; spoke with spouse Scarlet. 08/21- urine culture + aerococcus urinae, needs antibiotics, Appt with ID 09/24/23 Reviewed BS goals FBS 100. 2 hr after meal 140-180. Before bedtime 150 Baseline: 06/02/23 ADL, FALL, GOAL due: 09/21/23 . Chronic disease goal - 09/20/22 -ckd . 05/01/23- reviewed zones/management with spouse 03/03/23- HTN -reviewed with pt. 08/21/23- DM- reviewed SDOH transportation and food insecurity completed: 08/23/22 Next PCP visit: 06/02/23 documented in this encounterReg[facility]05-28-2024 Telephone encounter Note * Telephone Encounter - Amena Pizano LPN - 09/02/2023 1:44 PM EDT Pt's calls to report that pt cannot get into infectious disease in [place] until 11/11/23 and theydo not want to wait that long. reports there is a Dr. Abhilash Kearns from [facility] that comes to [facility] once a week. calledthe office and was advised they could get the pt in sooner. Faxed [facility] maurer notes, labs to [phone]. Amena Pizano LPN [facility]05-28-2024 Miscellaneous Notes* Telephone Encounter - Amena Pizano LPN - 09/02/2023 1:44 PM EDT Pt's calls to report that pt cannot get into infectious disease in [place] until 11/11/23 and theydo not want to wait that long. reports there is a Dr. Abhilash Kearns from [facility] that comes to [facility] once a week. calledthe office and was advised they could get the pt in sooner. Faxed [facility] maurer notes, labs to [phone]. Amena Pizano LPN documented in this encounterReg[facility]05-21-2024 Telephone encounter Note * Telephone Encounter - Jeni Marquis LPN - 08/26/2023 4:50 PM EDT Spoke with . Faxing consult to [facility]-21-[facility] Miscellaneous Notes* Telephone Encounter - Jeni Marquis LPN - 08/26/2023 4:50 PM EDT Spoke with . Faxing consult to [facility] * Telephone Encounter - Katya Suarez - 08/26/2023 4:37 PM EDT Spoke to to schedule with [facility] (blake to get something that soon because they all are scheduling out till Nov) But... wants to know if there is anyone in [place]? Please advise documented in this encounterRegency [facility]05-21-2024 Telephone encounter Note * Telephone Encounter - Katya Suarez - 08/26/2023 4:37 PM EDT Spoke to to schedule with Infectious Diseases Dr Didier Man @ [facility] on 09/01 next week (blake to get something that soon because they all are scheduling out till Nov) But... wants to know if there is anyone in [place]? Please advise [facility] Work Phone: 1(915) 167-474005-21-2024 Telephone encounter Note* Telephone Encounter - Rosey Kauffman RN - 08/26/2023 4:17 PM EDT Pts called and is notified of providers results and instructions. Pts asking what they need to do now. Transferred to scheduled to set up appt with Infectious Disease. Rosey Kauffman RN [facility]05-21-2024 Miscellaneous Notes* Telephone Encounter - Rosey Kauffman RN - 08/26/2023 4:17 PM EDT Pts called and is notified of providers results and instructions. Pts asking what they need to do now. Transferred to scheduled to set up appt with Infectious Disease. Rosey Kauffman RN * Telephone Encounter - Shirlene Zambrano MA - 08/25/2023 3:06 PM EDT notified of provider message Shirlene Zambrano MA August 25, 2023 3:07 PM * Telephone Encounter - Jeni Graham APRN.CNS - 08/25/2023 1:50 PM EDT Please let patient know that he has a urinary tract infection with Aerococcus urinae. I have placed a consult for infectious disease. This may require IV antibiotics. documented in this encounterRegency [facility]05-20-2024 Telephone encounter Note * Telephone Encounter - Shirlene Zambrano MA - 08/25/2023 3:06 PM EDT notified of provider message Shirlene Zambrano MA August 25, 2023 3:07 PM [facility]-20-[facility] Telephone encounter Note* Telephone Encounter - Jeni Graham APRN.CNS - 08/25/2023 1:50 PM EDT Please let patient know that he has a urinary tract infection with Aerococcus urinae. I have placed a consult for infectious disease. This may require IV antibiotics. [facility]05-16-[facility] History of Present illness Narrative* Kianna Barnett RN - 08/21/2023 10:55 AM EDT CDM Telephonic Outreach Provider Action/FYI Contacted for: Routine Telephonic Outreach Contact made with patient: Yes Patient identified by name and date of . Discussed care with spouse Are you experiencing any new or worsening symptoms you need to talk about today? No Disease Specific Do you check your blood pressure at home? Yes, Enter readings: not reported Do you have new or worsening shortness of breath with activity? No Do you feel like you are dehydrated for any reason, including not being able to eat or drink normally, or having less urine/much darker urine than normal for you? No Do you check your daily weight at home? No Based on director of assessment, the following disposition is advised: No symptoms or symptoms present, not severe. Routed to: No Action Needed DONTA Education Provided this Outreach: No Kianna Barnett RN August 21, 2023 11:14 AM Care Coordination next call- CKD HTN DM Patient CREEK Last CDM outreach contact: 08/21/23- No CDM concerns; spoke with spouse Scarlet. Reviewed CKD management Pt follows low Na+ FELICITAS, does not use NSAIDs, BP <130/80 Reviewed to keep A1C <7 Reviewed plate method and 60 g carb per meal and 15 g carb per snack Reviewed to discuss with Endo - consult to pharm or DM ED Lab Results Component Value Date HBA1C 10.4 06/11/2023 Spouse has reminded pt go repeat urine. Baseline: 06/02/23 ADL, FALL, GOAL due: 09/21/23 . Chronic disease goal - 09/20/22 -ckd . 05/01/23- reviewed zones/management with spouse 03/03/23- HTN -reviewed with pt. 08/21/23- DM- reviewed SDOH transportation and food insecurity completed: 08/23/22 Next PCP visit: 06/02/23 documented in this encounterReg[facility]04-23-2024 Telephone encounter Note * Telephone Encounter - Teresa Restrepo LPN - 07/29/2023 4:08 PM EDT Spoke with and message below given. Teresa Restrepo LPN [facility]04-23-2024 Miscellaneous Notes* Telephone Encounter - Teresa Restrepo LPN - 07/29/2023 4:08 PM EDT Spoke with and message below given. Teresa Restrepo LPN * Telephone Encounter - Betsey Watters RN - 07/29/2023 9:40 AM EDT Left vm for patient to return call to nurse for provider's message. * Telephone Encounter - Kb Lackey MD - 07/28/2023 8:08 PM EDT Recheck urine in two weeks * Telephone Encounter - Salomon Ashby LPN - 07/28/2023 6:33 PM EDT Patient notified and states that patient isn't having any issues. Advised her to call office if anything develops. * Telephone Encounter - Kb Lackey MD - 07/28/2023 4:58 PM EDT Urine is showing protein. Also showing white cells but could be contaminated. Any urinary symptoms at all? documented in this encounterRegency [facility]04-23-2024 Telephone encounter Note * Telephone Encounter - Betsey Watters RN - 07/29/2023 9:40 AM EDT Left vm for patient to return call to nurse for provider's message. [facility]04-22-[facility]24 Telephone encounter Note* Telephone Encounter - Kb Lackey MD - 07/28/2023 8:08 PM EDT Recheck urine in two weeks [facility]04-22-[facility] Telephone encounter Note* Telephone Encounter - Salomon Ashby LPN - 07/28/2023 6:33 PM EDT Patient notified and states that patient isn't having any issues. Advised her to call office if anything develops. [facility]04-22-20[facility] Telephone encounter Note* Telephone Encounter - Kb Lackey MD - 07/28/2023 4:58 PM EDT Urine is showing protein. Also showing white cells but could be contaminated. Any urinary symptoms at all? [facility] Telephone encounter Note* Telephone Encounter - Scarlet Worthy LPN - 07/28/2023 10:03 AM EDT Called and spoke to patient Scarlet, updated on results, Patient to come in today for UA. Scarlet Worthy LPN July 28, 2023 10:04 AM [facility]04-22-2024 Miscellaneous Notes* Telephone Encounter - Scarlet Worthy LPN - 07/28/2023 10:03 AM EDT Called and spoke to patient Scarlet, updated on results, Patient to come in today for UA. Scarlet Worthy LPN July 28, 2023 10:04 AM * Telephone Encounter - Kb Lackey MD - 07/28/2023 8:04 AM EDT His kidney function is back to baseline. He was to do a ua as well, still needed. documented in this encounterRegency [facility]04-22-2024 Telephone encounter Note * Telephone Encounter - Kb Lackey MD - 07/28/2023 8:04 AM EDT His kidney function is back to baseline. He was to do a ua as well, still needed. [facility]04-20-[facility] History of Present illness Narrative* Kb Lackey MD - 07/26/2023 9:40 AM EDT Patient presents with: 6 Month Exam HPI: Patient presents today for office visit for follow up. THYROID: Continues on Levothyroxine 125 mcg daily Denies any energy, hair or skin changes DM: Continues on Metformin 500 mg 2 tabs BID Glimepiride 2 mg BID Novolog 70-30 20 units in A.M and 8 units in P.M Checking sugars with Shante. Vision is good. No changes. Denies foot lesions, numbness or pain. A1c 10.4 Tries to watch what he eats Endo has been working on his sugars. He feels they are coming down. No worsening tremors. HTN: Continues on Lisinopril 30 mg daily Denies chest pain and shortness of breath Denies headaches and dizziness Denies palpitations and syncope Denies edema No falls. Appetite is well. Moods are good. Has followed labs by Dr King oscar endo. On an indira for his microalbuminuria. Latest Ref Rng 06/11/2023 Protein, Total 6.3 - 8.0 g/dL 6.4 Albumin 3.9 - 4.9 g/dL 4.1 Calcium 8.5 - 10.2 mg/dL 9.5 Bilirubin, Total 0.2 - 1.3 mg/dL 0.5 Alkaline Phosphatase 38 - 113 U/L 56 AST 14 - 40 U/L 21 ALT 10 - 54 U/L 16 Glucose 74 - 99 mg/dL 273 (H) BUN 9 - 24 mg/dL 29 (H) Creatinine 0.73 - 1.22 mg/dL 1.23 (H) Sodium 136 - 144 mmol/L 141 Potassium 3.7 - 5.1 mmol/L 4.5 Chloride 97 - 105 mmol/L 106 (H) CO2 22 - 30 mmol/L 26 Anion Gap 9 - 18 mmol/L 9 eGFR >=60 mL/min/1.73m 59 (L) Cholesterol, Total <200 mg/dL 127 Triglyceride <150 mg/dL 49 HDL Cholesterol >39 mg/dL 59 Non HDL Cholesterol <130 mg/dL 68 Fasting Time hrs 4 VLDL Cholesterol <30 mg/dL 10 TC:HDL Ratio <5.10 2.15 LDL Cholesterol <100 mg/dL 58 LDL:HDL Ratio <2.54 0.98 Creatinine, Ur Random (UCRR) 20.0 - 300.0 mg/dL 99.1 Albumin, Urine Random mg/L 37.1 Albumin/Creat Ratio <30 mg/g 37 (H) Hemoglobin A1C 4.3 - 5.6 % 10.4 (H) Estimated Average Glucose mg/dL 252 TSH 0.270 - 4.200 mIU/L 1.370 Free T4 0.9 - 1.7 ng/dL 1.6 Legend: (H) High (L) Low MEDICATIONS: Current Outpatient Medications Medication Sig cyanocobalamin (VITAMIN B-12) 1,000 mcg tab Take 1 tablet by mouth once daily. lisinopril (ZESTRIL) 30 mg tablet Take 1 tablet by mouth once daily. levothyroxine (SYNTHROID) 125 mcg tablet Take 1 tablet by mouth once daily. Take on empty stomach. For Thyroid metFORMIN ER (GLUCOPHAGE XR) 500 mg 24 hr tablet Take 2 tablets by mouth twice daily. blood sugar diagnostic (BLOOD GLUCOSE TEST) test strip Test blood sugar(s) 1 times daily. Dx: Type 2 DM - Uncontrolled E11.65 Insulin: No Lancets lancets Test blood sugar(s) 1 times daily. Dx: Type 2 DM - Uncontrolled E11.65 Insulin: Yes insulin aspart prot/insuln asp (NOVOLOG MIX 70-30 SUBCUTANEOUS) Inject subcutaneously twice daily with meals. Taking 20 units in AM and 8 units in PM. Per endo sees Dr Kemp ferrous sulfate 325 mg (65 mg iron) tablet Take 325 mg by mouth. glimepiride (AMARYL) 2 mg tablet Take 2 mg by mouth twice daily with meals. Updated per endo note mv,iron,mmi-MI-hyjmvin cmb.24 400 mcg tab Take 1 tablet by mouth once daily. Cholecalciferol, Vitamin D3, 1,000 unit cap Take 1 capsule by mouth once daily. No current facility-administered medications for this visit. 146/75 ALLERGIES: ALLERGIES No Known Allergies PAST MEDICAL HISTORY Diagnosis Date B12 deficiency 2010 Elevated blood pressure 2011 Hearing loss Hypertension Hypothyroidism Major depressive disorder, recurrent episode, moderate (HCC) 01/26/2008 Other postablative hypothyroidism Severe major depression, single episode (HCC) 2008 PAST SURGICAL HISTORY Procedure Laterality Date CATARACT EXTRACTION HX Left 10/16/2017 CHOLECYSTECTOMY 2001 Cholecystectomy COLONOSCOPY FLX DX W/COLLJ SPEC WHEN PFRMD 07/07/2015 Colonoscopy EGD ESOPHAGOGASTRODUODENOSCOPY TRANSORAL DIAGNOSTIC 07/07/2015 EGD LAPAROSCOPY SURG RPR INITIAL INGUINAL HERNIA 12/24/06 RIGHT TONSILLECTOMY PRIMARY/SECONDARY <AGE 14 Tonsillectomy FAMILY HISTORY Problem Relation Age of Onset Cancer Mother stomach Colon Cancer Brother other (cirrhosis [Other]) Father None Brother None Brother None Brother None Sister Stroke Brother Social History Tobacco Use Smoking status: Former Packs/day: 1.00 Years: 25.00 Additional pack years: 0.00 Total pack years: 25.00 Types: Cigarettes Quit date: 10/11/1980 Years since quittin.8 Smokeless tobacco: Never Vaping Use Vaping Use: Never used Substance Use Topics Alcohol use: No Drug use: No Reviewed current medications, allergies, past medical history, surgical history, family history andsocial history today. REVIEW OF SYSTEMS All other reviewed and negative other than HPI. HEALTH MAINTENANCE: Reviewed health maintenance issues today and recommended the following in detail. Dilated Retinal Exam -s soon RSV Vaccine(1 - 1-dose 60+ series) Never done Diabetic Foot Exam due on 12/18/2022 Advance Directive Discussion -his is his surrogate Behavioral Health Screening (Minimal Depression) No further intervention at this time Hemoglobin/Hematocrit due on 07/03/2023 VITALS: BP 134/76 Pulse 74 Ht 177.8 cm (5' 10) Wt 70.3 kg (155 lb) BMI 22.24 kg/m Last 4 Encounter Wt Readings: Date: Wt: 12/23/2022 69.9 kg (154 lb) 06/17/2022 69.9 kg (154 lb) 12/18/2021 64.5 kg (142 lb 3.2 oz) 06/15/2021 65.7 kg (144 lb 12.8 oz) PHYSICAL EXAMINATION: General appearance: Well appearing, alert, in no acute distress, well-hydrated, well nourished. Skin: Skin color, texture, turgor normal, no suspicious rashes or lesions Head: Normocephalic, no masses, lesions, tenderness or abnormalities Lungs: Lungs clear to auscultation. No wheezing, rhonchi, rales Heart: RRR without murmur, gallop, or rubs. No ectopy Abdomen: Normal abdominal exam, Abdomen soft, non-tender. Bowel sounds normal. No masses, organomegaly Extremities: No deformities, edema, skin discoloration, clubbing or cyanosis. Good capillary refill. Feet:Shoes and socks removed, No deformities, ulcers, calluses, normal distal pulses, and sensitiveto 10 gm monofilament ASSESSMENT/PLAN: 1. Essential hypertension, benign - ICD9: 401.1, ICD10: I10 (primary diagnosis) - Controlled - Continue current medications 2. Tremor - ICD9: 781.0, ICD10: R25.1 - stable. 3. Chronic renal insufficiency, stage 3 (moderate) (HCC) - ICD9: 585.3, ICD10: N18.30 - slightly lower. Recheck labs. 4. Type 2 diabetes mellitus without complication, without long-term current use of insulin (HCC) - ICD9: 250.00, ICD10: E11.9 - Uncontrolled - per endo 5. Hypothyroidism, unspecified type - ICD9: 244.9, ICD10: E03.9 Stable, per endo 6. Vitamin D deficiency - ICD9: 268.9, ICD10: E55.9 - stable. 7. Iron deficiency anemia, unspecified iron deficiency anemia type - ICD9: 280.9, ICD10: D50.9 - follow cbc 8. Renal insufficiency - ICD9: 593.9, ICD10: N28.9 - check labs. - BASIC METABOLIC PANEL - URINALYSIS, WITH MICROSCOPIC - COMPLETE BLOOD COUNT AND DIFFERENTIAL Kb Lackey MD documented in this encounterReg[facility] History of Present illness Narrative* Kianna Barnett RN - 07/24/2023 12:15 PM EDT [facility] Telephonic Outreach Provider Action/FYI Contacted for: Routine Telephonic Outreach Contact made with patient: Yes Patient identified by name and date of . Discussed care with spouse Are you experiencing any new or worsening symptoms you need to talk about today? No Disease Specific Do you check your blood pressure at home? Yes, Enter readings: 120/72 Do you have new or worsening shortness of breath with activity? No Do you feel like you are dehydrated for any reason, including not being able to eat or drink normally, or having less urine/much darker urine than normal for you? No Do you check your daily weight at home? No Based on director of assessment, the following disposition is advised: No symptoms or symptoms present, not severe. Routed to: No Action Needed DONTA Education Provided this Outreach: No Kianna Barnett RN July 24, 2023 12:18 PM Care Coordination next call- CKD HTN DM Last CDM outreach contact: 06/26/23- No concerns; spoke with spouse Scarlet. Patient CREEK Baseline: 06/02/23 ADL, FALL, GOAL due: 09/21/23 . Chronic disease goal - 09/20/22 -ckd . 05/01/23- reviewed zones/management with spouse 03/03/23- HTN -reviewed with pt. SDOH transportation and food insecurity completed: 08/23/22 Next PCP visit: 06/02/23 documented in this encounterReg[facility] History of Present illness Narrative* Kianna Barnett RN - 06/26/2023 2:52 PM EDT CD Telephonic Outreach Provider Action/FYI Contacted for: Routine Telephonic Outreach Contact made with patient: Yes Patient identified by name and date of . Discussed care with patient Are you experiencing any new or worsening symptoms you need to talk about today? No Disease Specific Do you check your blood pressure at home? Yes, Enter readings: not reported Do you have new or worsening shortness of breath with activity? No Do you feel like you are dehydrated for any reason, including not being able to eat or drink normally, or having less urine/much darker urine than normal for you? No Do you check your daily weight at home? Yes, Have you noticed a sudden gain in weight greater than three pounds in a day or three pounds in a week? No Based on director of assessment, the following disposition is advised: No symptoms or symptoms present, not severe. Routed to: No Action Needed DONTA Education Provided this Outreach: No Kianna Barnett RN June 26, 2023 3:37 PM Care Coordination next call- CKD HTN DM Last CDM outreach contact: 06/26/23- No concerns; spoke with spouse Scarlet. BS improved. Patient CREEK Baseline: 06/02/23 ADL, FALL, GOAL due: 09/21/23 . Chronic disease goal - 09/20/22 -ckd . 05/01/23- reviewed zones/management with spouse 03/03/23- HTN -reviewed with pt. SDOH transportation and food insecurity completed: 08/23/22 Next PCP visit: 06/02/23 documented in this encounterReg[facility]03-21-2024 Miscellaneous Notes* Telephone Encounter - Teresa Restrepo LPN - 06/26/2023 11:19 AM EDT Patient has been identified by name and date of : Yes, Provider Dr. Lackey Date 06/26/23 Time 11:20 am Patient phones for refill(s): Requested Prescriptions Pending Prescriptions Disp Refills cyanocobalamin (VITAMIN B-12) 1,000 mcg tab 90 tablet 3 Sig: Take 1 tablet by mouth once daily. Date of last office visit in primary care: 12/23/2022 Date of next office visit in primary care: 07/26/2023 Thank you. Teresa Restrepo LPN. documented in this encounterRegency [facility]11-27-2023 History of Present illness Narrative* Kianna Barnett RN - 03/03/2023 3:24 PM EST CDM Telephonic Outreach Provider Action/FYI Contacted for: Routine Telephonic Outreach Contact made with patient: Yes Patient identified by name and date of . Discussed care with spouse Are you experiencing any new or worsening symptoms you need to talk about today? No Disease Specific Do you check your blood pressure at home? Yes, Enter readings: 120/70 Do you have new or worsening shortness of breath with activity? No Do you feel like you are dehydrated for any reason, including not being able to eat or drink normally, or having less urine/much darker urine than normal for you? No Do you check your daily weight at home? No Based on director of assessment, the following disposition is advised: No symptoms or symptoms present, not severe. Routed to: No Action Needed DONTA Education Provided this Outreach: No Kianna Barnett RN March 03, 2023 3:28 PM Care Coordination next call- CKD HTN DM Last CDM outreach contact: 03/03- No concerns; spoke with spouse Scarlet Baseline: 10/18/22 ADL, FALL, GOAL due: 09/21/23 . Chronic disease goal - 09/20/22 -ckd . 03/03/23- HTN -Need review. [facility] transportation and food insecurity completed: 08/23/22 Next PCP visit: 06/24/22 documented in this encounterReg[facility]10-23-2023 History of Present illness Narrative* Karishma Szymanski MUD TEMPERER - 01/27/2023 10:01 AM EDT Jean-Claude Lackey MD Reason for blood pressure check: Medication adjustment Current Outpatient Medications Medication Sig lisinopril (ZESTRIL) 30 mg tablet Take 1 tablet by mouth once daily. levothyroxine (SYNTHROID) 125 mcg tablet Take 1 tablet by mouth once daily. Take on empty stomach. For Thyroid metFORMIN ER (GLUCOPHAGE XR) 500 mg 24 hr tablet Take 2 tablets by mouth twice daily. blood sugar diagnostic (BLOOD GLUCOSE TEST) test strip Test blood sugar(s) 1 times daily. Dx: Type 2 DM - Uncontrolled E11.65 Insulin: No Lancets lancets Test blood sugar(s) 1 times daily. Dx: Type 2 DM - Uncontrolled E11.65 Insulin: Yes insulin aspart prot/insuln asp (NOVOLOG MIX 70-30 SUBCUTANEOUS) Inject subcutaneously twice daily with meals. Taking 20 units in AM and 8 units in PM. Per endo sees Dr Kemp ferrous sulfate 325 mg (65 mg iron) tablet Take 325 mg by mouth. glimepiride (AMARYL) 2 mg tablet Take 2 mg by mouth twice daily with meals. Updated per endo note cyanocobalamin (VITAMIN B-12) 1,000 mcg tab Take 1 tablet by mouth once daily. mv,iron,mgm-FG-jhxosbb cmb.24 400 mcg tab Take 1 tablet by mouth once daily. Cholecalciferol, Vitamin D3, 1,000 unit cap Take 1 capsule by mouth once daily. No current facility-administered medications for this visit. Medications Reviewed: Yes Took BP medication today: Yes What time was last dose 7:30AM If no, date/time medication last taken: N/A Experiencing side effects: No Symptoms: Dizziness No, Chest Pain No, Shortness of Breath No, Swelling No, Fatigue No, Headache No, and New Dry Cough Yes (states cough started prior to last appt 12/23/22) BP Today: 120/78 P: 70 Last 4 Encounter Primary Care BP Readings: Last 3 Encounter BP Readings: Date: BP: 12/23/2022 142/82 06/17/2022 122/70 12/18/2021 120/70 Potassium Date Value Ref Range Status 12/23/2022 4.2 3.7 - 5.1 mmol/L Final 06/17/2022 3.9 3.7 - 5.1 mmol/L Final BUN Date Value Ref Range Status 12/23/2022 26 (H) 9 - 24 mg/dL Final 06/17/2022 28 (H) 9 - 24 mg/dL Final Creatinine Date Value Ref Range Status 12/23/2022 1.13 0.73 - 1.22 mg/dL Final 06/17/2022 1.03 0.73 - 1.22 mg/dL Final Plan: Other Pt advised to continue with current medications and would be contacted if any further instructions. RN Only Education: Patient verbalized understanding of instruction Yes Karishma Szymanski LPN documented in this encounterReg[facility]10-06-2023 History of Present illness Narrative* Kianna Barnett RN - 01/10/2023 10:58 AM EDT CDM Telephonic Outreach Provider Action/FYI Contacted for: Routine Telephonic Outreach Contact made with patient: Yes Patient identified by name and date of . Discussed care with patient Are you experiencing any new or worsening symptoms you need to talk about today? No Disease Specific Do you check your blood pressure at home? Yes, Enter readings: 130/78 Do you have new or worsening shortness of breath with activity? No Do you feel like you are dehydrated for any reason, including not being able to eat or drink normally, or having less urine/much darker urine than normal for you? No Do you check your daily weight at home? No Based on director of assessment, the following disposition is advised: No symptoms or symptoms present, not severe. Routed to: No Action Needed DONTA Education Provided this Outreach: No Kianna Barnett RN January 10, 2023 11:06 AM Care Coordination next call- CKD HTN DM Last CDM outreach contact: 01/10- No concerns; spoke with spouse Baseline: 10/18/22 ADL, FALL, GOAL due: 09/21/23 . Chronic disease goal - 09/20/22 -ckd . need- htn. SDOH transportation and food insecurity completed: 08/23/22 Next PCP visit: 06/24/22 documented in this encounterReg[facility]09-19-2023 Miscellaneous Notes* Telephone Encounter - Yelena Gibson RN - 12/24/2022 11:19 AM EDT Patient's calls back and notified of results. voices understanding Yelena Gibson RN * Telephone Encounter - Kristi Mendoza RN - 12/24/2022 10:45 AM EDT Message left for pt to call PCP office and ask for a nurse, for message below. Kristi Mendoza RN * Telephone Encounter - Kb Lackey MD - 12/24/2022 8:53 AM EDT Let them know labs are stable. documented in this encounterRegency [facility]09-18-2023 History of Present illness Narrative* Kb Lackey MD - 12/23/2022 12:40 PM EDT Patient presents with: Physical Diabetes HPI: Patient presents today for office visit for check up. Not medicare wellness. HTN: Patient is compliant with meds Yes Monitors bp at home: Yes. Denies side effects: Yes. Chest pain: No. Dyspnea: No. Edema: No. Palpitations: No. Syncope: No. Headache: No. Dizziness: No. Diabetes: Per endo Dr Kemp. Sees them again in Jan. Wearing shante sensor checks glucose about 4 times a day with this. Vision is good reports no changes and just had eye exam. No issues with feet. HYPOTHYROID: followed by endo. No weight changes. No energy level changes. Stays active. Last b12 was ok just done in the spring. No worsening tremor. He denies any memory issues. He initially failed three objects on minicog. On retest with differentwords he was able to recall all three. No falls. Appetites is ok. Moods have been good. MEDICATIONS: Current Outpatient Medications Medication Sig levothyroxine (SYNTHROID) 125 mcg tablet Take 1 tablet by mouth once daily. Take on empty stomach. For Thyroid metFORMIN ER (GLUCOPHAGE XR) 500 mg 24 hr tablet Take 2 tablets by mouth twice daily. blood sugar diagnostic (BLOOD GLUCOSE TEST) test strip Test blood sugar(s) 1 times daily. Dx: Type 2 DM - Uncontrolled E11.65 Insulin: No Lancets lancets Test blood sugar(s) 1 times daily. Dx: Type 2 DM - Uncontrolled E11.65 Insulin: Yes insulin aspart prot/insuln asp (NOVOLOG MIX 70-30 SUBCUTANEOUS) Inject subcutaneously twice daily with meals. Taking 16 units in AM and 10 units in PM. Per endo sees Dr Kemp ferrous sulfate 325 mg (65 mg iron) tablet Take 325 mg by mouth. glimepiride (AMARYL) 2 mg tablet Take 2 mg by mouth twice daily with meals. Updated per endo note lisinopril (ZESTRIL, PRINIVIL) 20 mg tablet Take 1 tablet by mouth once daily. cyanocobalamin (VITAMIN B-12) 1,000 mcg tab Take 1 tablet by mouth once daily. mv,iron,ejx-QP-qizmdfr cmb.24 400 mcg tab Take 1 tablet by mouth once daily. Cholecalciferol, Vitamin D3, 1,000 unit cap Take 1 capsule by mouth once daily. No current facility-administered medications for this visit. ALLERGIES: ALLERGIES No Known Allergies PAST MEDICAL HISTORY Diagnosis Date B12 deficiency 2010 Elevated blood pressure 2011 Hearing loss Hypertension Hypothyroidism Major depressive disorder, recurrent episode, moderate (HCC) 01/26/2008 Other postablative hypothyroidism Severe major depression, single episode (HCC) 2008 PAST SURGICAL HISTORY Procedure Laterality Date CATARACT EXTRACTION HX Left 10/16/2017 CHOLECYSTECTOMY 2000 Cholecystectomy COLONOSCOPY FLX DX W/COLLJ SPEC WHEN PFRMD 07/07/2015 Colonoscopy EGD ESOPHAGOGASTRODUODENOSCOPY TRANSORAL DIAGNOSTIC 07/07/2015 EGD LAPAROSCOPY SURG RPR INITIAL INGUINAL HERNIA 12/24/06 RIGHT TONSILLECTOMY PRIMARY/SECONDARY <AGE 14 Tonsillectomy FAMILY HISTORY Problem Relation Age of Onset Cancer Mother stomach Colon Cancer Brother other (cirrhosis [Other]) Father None Brother None Brother None Brother None Sister Stroke Brother Social History Tobacco Use Smoking status: Former Packs/day: 1.00 Years: 25.00 Additional pack years: 0.00 Total pack years: 25.00 Types: Cigarettes Quit date: 10/11/1980 Years since quittin.2 Smokeless tobacco: Never Vaping Use Vaping Use: Never used Substance Use Topics Alcohol use: No Drug use: No Reviewed current medications, allergies, past medical history, surgical history, family history andsocial history today. REVIEW OF SYSTEMS No gi or gu issues. All other reviewed and negative other than HPI. HEALTH MAINTENANCE: Reviewed health maintenance issues today and recommended the following in detail. Diabetic labs per endo. Covid-19 Vaccine(1) Never done Dilated Retinal Exam Never done Hepatitis B Vaccine(1 of 3 - Risk 3-dose series) Never done DTaP,Tdap,Td Vaccine(1 - Tdap) due on 12/31/2008 Shingrix Vaccine(2 of 3) due on 01/17/2012 Advance Directive Discussionhas living will and dpoa. His , son and daughter are his surrogates. Depression Assessment Never done Influenza Vaccine(1) due on 12/06/2022 Diabetic Foot Exam - done per Dr. Kemp. VITALS: BP 142/82 Pulse (!) 52 Wt 69.9 kg (154 lb) SpO2 99% BMI 22.10 kg/m Last 4 Encounter Wt Readings: Date: Wt: 06/17/2022 69.9 kg (154 lb) 12/18/2021 64.5 kg (142 lb 3.2 oz) 06/15/2021 65.7 kg (144 lb 12.8 oz) 11/08/2020 66.7 kg (147 lb) PHYSICAL EXAMINATION: General appearance: Well appearing, alert, in no acute distress, well-hydrated, well nourished. Skin: Skin color, texture, turgor normal, no suspicious rashes or lesions Head: Normocephalic, no masses, lesions, tenderness or abnormalities Lungs: Lungs clear to auscultation. No wheezing, rhonchi, rales Heart: RRR without murmur, gallop, or rubs. No ectopy Abdomen: Normal abdominal exam, Abdomen soft, non-tender. Bowel sounds normal. No masses, organomegaly Extremities: No deformities, edema, skin discoloration, clubbing or cyanosis. Good capillary refill. ASSESSMENT/PLAN: 1. Type 2 diabetes mellitus without complication, without long-term current use of insulin (HCC) - ICD9: 250.00, ICD10: E11.9 (primary diagnosis) - per endo. Continue meds. Work on diet. 2. Essential hypertension, benign - ICD9: 401.1, ICD10: I10 - increase lisinopril to 30 mg a day. Bp check and bmp in one month. Call if any issues. - BASIC METABOLIC PNL 3. Chronic renal insufficiency, stage 3 (moderate) (HCC) - ICD9: 585.3, ICD10: N18.30 - follow labs with med changes - BASIC METABOLIC PNL 4. Vitamin B12 deficiency - ICD9: 266.2, ICD10: E53.8 - has been stable. 5. Tremor - ICD9: 781.0, ICD10: R25.1 - currently doing well. 6. Vitamin D deficiency - ICD9: 268.9, ICD10: E55.9 - stable. Kb Lackey MD documented in this encounterRegency [facility]09-08-2023 Miscellaneous Notes* Telephone Encounter - Kianna Barnett RN - 12/13/2022 11:35 AM EDT Patient phones requesting refills as follows: Requested Prescriptions Pending Prescriptions Disp Refills levothyroxine (SYNTHROID) 125 mcg tablet 30 tablet 11 Sig: Take 1 tablet by mouth once daily. Take on empty stomach. For Thyroid Please review and advise. Kianna Barnett RN documented in this encounterRegency [facility]09-08-2023 History of Present illness Narrative* Kianna Barnett RN - 12/13/2022 11:20 AM EDT CDM Telephonic Outreach Provider Action/FYI Care Coordination next call- CKD HTN DM Last CDM outreach contact: 12/13 - No concerns; spoke with spouse Baseline: 10/18/22 ADL, FALL, GOAL due: 09/21/23 . Chronic disease goal - 09/20/22 -ckd . need- htn. SDOH transportation and food insecurity completed: 08/23/22 Next PCP visit: 12/23/22 Contacted for: Routine Telephonic Outreach Contact made with patient: Yes Patient identified by name and date of . Discussed care with spouse Are you experiencing any new or worsening symptoms you need to talk about today? No Disease Specific Do you check your blood pressure at home? Yes, Enter readings: 120/78 Do you have new or worsening shortness of breath with activity? No Do you feel like you are dehydrated for any reason, including not being able to eat or drink normally, or having less urine/much darker urine than normal for you? No Do you check your daily weight at home? No Based on director of assessment, the following disposition is advised: No symptoms or symptoms present, not severe. Routed to: No Action Needed DONTA Education Provided this Outreach: No Kianna Barnett RN December 13, 2022 11:38 AM documented in this encounterRegency [facility]08-11-2023 History of Present illness Narrative* Kianna Barnett RN - 11/15/2022 1:48 PM EDT [facility] Telephonic Outreach Provider Action/FYI Contacted for: Routine Telephonic Outreach Contact made with patient: No, left message. Kianna Barnett RN November 15, 2022 1:51 PM Care Coordination next call- CHF HTN DM Last CDM outreach contact: 10/18 - No concerns; spoke with spouse Baseline: 10/18/22 ADL, FALL, GOAL due: 09/21/23 . Chronic disease goal - 09/20/22 -ckd . need- htn. SDOH transportation and food insecurity completed: 08/23/22 * Kianna Barnett RN - 11/15/2022 10:43 AM EDT [facility] Telephonic Outreach Provider Action/FYI Contacted for: Routine Telephonic Outreach Contact made with patient: No, left message. Kianna Barnett RN November 15, 2022 10:45 AM Care Coordination next call- CHF HTN DM Last CDM outreach contact: 10/18 - No concerns; spoke with spouse Baseline: 10/18/22 ADL, FALL, GOAL due: 09/21/23 . Chronic disease goal - 09/20/22 -ckd . need- htn. SDOH transportation and food insecurity completed: 08/23/22 documented in this encounterRegency [facility]07-14-2023 History of Present illness Narrative* Kianna Barnett RN - 10/18/2022 1:05 PM EDT [facility] Telephonic Outreach Provider Action/FYI Contacted for: Routine Telephonic Outreach Contact made with patient: Yes Patient identified by name and date of . Discussed care with spouse Are you experiencing any new or worsening symptoms you need to talk about today? No Disease Specific Do you check your blood pressure at home? Yes, Enter readings: checks 1-2 x/week 120/70 Do you have new or worsening shortness of breath with activity? No No SOB Do you feel like you are dehydrated for any reason, including not being able to eat or drink normally, or having less urine/much darker urine than normal for you? No Urine wnl; Stays hydrated Do you check your daily weight at home? No Medications Do you have any questions about taking your medication or which medications you should be on? No Do you need any medication refills at this time, including any of the medications you might take only when needed? No Social We would like to make sure you have what you need so that your basic needs are met- including your personal safety, food, housing, transportation and medications? Would you like to speak with a social work manufacturing team member to help give you support for any of these needs? No Lives with spouse; feels safe + food It can be normal to feel anxious or down during a time like this. Would you like to talk to a mental health professional about how you have been feeling? No Based on director of assessment, the following disposition is advised: No symptoms or symptoms present, not severe. Routed to: No Action Needed DONTA Education Provided this Outreach: No Kianna Barnett RN October 18, 2022 1:09 PM Care Coordination next call- Last CDM outreach contact: 10/18 - No concerns Baseline: 10/18/22 ADL, FALL, GOAL due: 09/21/23 . Chronic disease goal - 09/20/22 -ckd . need- htn. SDOH transportation and food insecurity completed: 08/23/22 documented in this encounterRegency [facility]05-01-2023 History of Present illness Narrative* Maribell Titus RN - 09/20/2022 4:28 PM EDT [facility] Telephonic Outreach Provider Lewis/DIVYA Has continuous glucose monitor (as recommended by outside [facility] hospital system ENDO Dr Kemp) and hasbeen watching his blood glucose reading(s) more closely. Goals, ADLs and Falls assessments updated. Contacted for: Routine Telephonic Outreach Contact made with patient: Yes Patient identified by name and date of . Discussed care with spouse Are you experiencing any new or worsening symptoms you need to talk about today? No Disease Specific Do you check your blood pressure at home? No Do you have new or worsening shortness of breath with activity? No Do you feel like you are dehydrated for any reason, including not being able to eat or drink normally, or having less urine/much darker urine than normal for you? No Do you check your daily weight at home? No Based on director of assessment, the following disposition is advised: No symptoms or symptoms present, not severe. Routed to: No Action Needed DONTA Education Provided this Outreach: No Maribell Titus RN September 20, 2022 4:32 PM documented in this encounterRegency [facility]04-20-2023 History of Present illness Narrative* Maribell Titus RN - 07/25/2022 1:49 PM EDT [facility] Telephonic Outreach Provider Lewis/DIVYA Spoke with patient's Scarlet and validated involvement in this patient's care. Blood glucose reading(s) in AM range from 93-170. Working to improve diet and watching carbohydrates. No other concerns or questions today. Contacted for: Routine Telephonic Outreach Contact made with patient: Yes Patient identified by name and date of . Discussed care with spouse Are you experiencing any new or worsening symptoms you need to talk about today? No Disease Specific Do you check your blood pressure at home? No Do you have new or worsening shortness of breath with activity? No Do you feel like you are dehydrated for any reason, including not being able to eat or drink normally, or having less urine/much darker urine than normal for you? No Do you check your daily weight at home? No Based on director of assessment, the following disposition is advised: Symptoms present, not severe. Routed to: No Action Needed DONTA Education Provided this Outreach: No Maribell Titus RN July 25, 2022 1:55 PM documented in this encounterReg[facility]23 Miscellaneous Notes* Telephone Encounter - Fariha Gutierrez LPN - 07/03/2022 8:24 AM EDT Spoke with pt gave information provided. Pt voices understanding. * Telephone Encounter - Fariha Gutierrez LPN - 07/03/2022 8:18 AM EDT Line busy . Will need to try back. * Telephone Encounter - Kb Lackey MD - 07/02/2022 5:18 PM EDT Let him know his repeat labs are ok. documented in this encounterRegency [facility]03-23-2023 History of Present illness Narrative* Maribell Titus RN - 06/27/2022 8:40 AM EDT INSIGHT [facility] TELEPHONIC OUTREACH Provider Action/FYI: Spoke with patient's Scarlet and validated involvement in this patient's care. She reports patient is gaining back his weight - went from 147 lb to 154 lbs. Is aware of upcoming lab work needed. Noconcerns or questions today. Since previous [facility] Telephonic Outreach: - 06/07/22 [facility] 06/17/22 Kb Lackey MD [facility] follow up visit Labs ordered - repeat anemia labs and iFOBT in 1 week Contact made with patient: Yes Patient identified by name and . Discussed care with spouse It s nice talking to you again. As a reminder, this is our bi-weekly check-in where I will be asking you questions about your health. This will only take a few minutes of your time. Is this a good time? Yes Symptoms What Chronic Disease(s) does the patient have: CKD Do you check your blood pressures at home? No Do you have new or worse shortness of breath with activity? No Do you feel like you are dehydrated for any reason, including not being able to eat or drink normally, or having less urine/much darker urine than normal for you? No Do you check your daily weight at home? Yes, Have you noticed a sudden gain in weight greater than three pounds in a day or three pounds in a week? No Are you having any other symptoms that your PCP needs to know about? No Symptoms: Symptom Escalation DONTA Education Ordered -: No The patient required an escalation for symptom(s)? No Medications Do you have any questions about taking your medication or which medications you should be on? No Do you need any medication refills at this time, including any of the medications you might take only when needed? No Social We would like to make sure you have what you need so that your basic needs are met- including your personal safety, food, housing, transportation and medications? Would you like to speak with a social work manufacturing team member to help give you support for any of these needs? No It can be normal to feel anxious or down during a time like this. Would you like to talk to a mental health professional about how you have been feeling? No Closing Thank you for taking the time to talk with me today. We want to work with you to ensure that we arekeeping your medical condition(s) well-controlled and to keep you healthy and out of the doctor's office or hospital. It s also not too late for me to sign you up for automated weekly questionnaires through [employer]. This is an easy way for us to stay connected each week. Are you interested? No, I understand. We can always sign you up in the future if you change your mind. Just as a reminder, will continue to call you every other week to check in on your health. Our calls should take 10-15 minutes or less. Remember, if you have concerns in between our calls, please call your PCP's office right away. Thank you. Enter next patient outreach date for two weeks on the same day of the week as today in the Track PtOutreach and End outreach. * Maribell Titus RN - 06/26/2022 11:52 AM EDT INSIGHT [facility] TELEPHONIC OUTREACH Provider Action/FYI: Contact made with patient: No - Left message Hello my name is Maribell Titus RN your Electronics Specialist [facility] the [facility] I am calling today for your bi-weekly check in. I am sorry I missed your call. I will reach out to you again tomorrow. (if the third call I will reach out to you again next week) Enter next patient outreach date for the following using the Track Pt Outreach. End outreach. documented in this encounterRegency [facility]03-13-2023 History of Present illness Narrative* Kb Lackey MD - 06/17/2022 10:16 AM EDT Patient presents with: Hospital F/U HPI: Patient presents today for office visit for follow up. TCM call placed on 06/10/ HOSPITAL/ER FOLLOW UP: Reason for visit: malaise Which facility: [facility] Date of visit: 06/05/22-discharged 06/07 Diagnosis: Sepsis secondary to acute cystitis, uncontrolled diabetes (sees endo Dr Kemp) Testing done: urine showed mixed valdo however, they felt it was consistent with sepsis. Was hypotensive and febrile on presentation. Negative for covid and flu. Given Iv rocephin. Followed labs. Treatment given: insulin increased, cephalexin states that he finished ATB Current symptoms: feeling better MEDICATIONS: Current Outpatient Medications Medication Sig metFORMIN ER (GLUCOPHAGE XR) 500 mg 24 hr tablet Take 2 tablets by mouth twice daily. levothyroxine (SYNTHROID) 125 mcg tablet Take 1 tablet by mouth once daily. Take on empty stomach. For Thyroid insulin aspart prot/insuln asp (NOVOLOG MIX 70-30 SUBCUTANEOUS) Inject subcutaneously twice daily with meals. Taking 16 units in AM and 10 units in PM. Per endo seefela Kemp ferrous sulfate 325 mg (65 mg iron) tablet Take 325 mg by mouth. glimepiride (AMARYL) 2 mg tablet Take 2 mg by mouth twice daily with meals. Updated per endo note lisinopril (ZESTRIL, PRINIVIL) 20 mg tablet Take 1 tablet by mouth once daily. cyanocobalamin (VITAMIN B-12) 1,000 mcg tab Take 1 tablet by mouth once daily. mv,iron,snb-OJ-plrosrw cmb.24 400 mcg tab Take 1 tablet by mouth once daily. Cholecalciferol, Vitamin D3, 1,000 unit cap Take 1 capsule by mouth once daily. blood sugar diagnostic (BLOOD GLUCOSE TEST) test strip Test blood sugar(s) 1 times daily. Dx: Type 2 DM - Uncontrolled E11.65 Insulin: No Lancets lancets Test blood sugar(s) 1 times daily. Dx: Type 2 DM - Uncontrolled E11.65 Insulin: Yes No current facility-administered medications for this visit. ALLERGIES: ALLERGIES No Known Allergies PAST MEDICAL HISTORY Diagnosis Date B12 deficiency 2010 Elevated blood pressure 2012 Hearing loss Hypertension Hypothyroidism Major depressive disorder, recurrent episode, moderate (HCC) 01/26/2008 Other postablative hypothyroidism Severe major depression, single episode (HCC) 2008 PAST SURGICAL HISTORY Procedure Laterality Date CATARACT EXTRACTION HX Left 10/16/2017 CHOLECYSTECTOMY 2001 Cholecystectomy COLONOSCOPY FLX DX W/COLLJ SPEC WHEN PFRMD 07/07/2015 Colonoscopy EGD ESOPHAGOGASTRODUODENOSCOPY TRANSORAL DIAGNOSTIC 07/07/2015 EGD LAPAROSCOPY SURG RPR INITIAL INGUINAL HERNIA 12/24/06 RIGHT TONSILLECTOMY PRIMARY/SECONDARY <AGE 14 Tonsillectomy FAMILY HISTORY Problem Relation Age of Onset Cancer Mother stomach Colon Cancer Brother other (cirrhosis [Other]) Father None Brother None Brother None Brother None Sister Stroke Brother Social History Tobacco Use Smoking status: Former Packs/day: 1.00 Years: 25.00 Pack years: 25.00 Types: Cigarettes Quit date: 10/11/1980 Years since quittin.7 Smokeless tobacco: Never Vaping Use Vaping Use: Never used Substance Use Topics Alcohol use: No Drug use: No Reviewed current medications, allergies, past medical history, surgical history, family history andsocial history today. REVIEW OF SYSTEMS All other reviewed and negative other than HPI. VITALS: BP 122/70 Pulse 64 Wt 69.9 kg (154 lb) BMI 22.10 kg/m Last 4 Encounter Wt Readings: Date: Wt: 12/18/2021 64.5 kg (142 lb 3.2 oz) 06/15/2021 65.7 kg (144 lb 12.8 oz) 11/08/2020 66.7 kg (147 lb) 07/12/2020 67.6 kg (149 lb) PHYSICAL EXAMINATION: General appearance: Well appearing, alert, in no acute distress, well-hydrated, well nourished. Skin: Skin color, texture, turgor normal, no suspicious rashes or lesions Head: Normocephalic, no masses, lesions, tenderness or abnormalities Lungs: Lungs clear to auscultation. No wheezing, rhonchi, rales Heart: RRR without murmur, gallop, or rubs. No ectopy Abdomen: Normal abdominal exam, Abdomen soft, non-tender. Bowel sounds normal. No masses, organomegaly Extremities: No deformities, edema, skin discoloration, clubbing or cyanosis. Good capillary refill. ASSESSMENT/PLAN: 1. Sepsis, due to unspecified organism, unspecified whether acute organ dysfunction present (HCC) -ICD9: 038.9, 995.91, ICD10: A41.9 (primary diagnosis) - continue meds. Check labs. Call if any issues. - CBC + DIFF - BASIC METABOLIC PNL 2. Dehydration - ICD9: 276.51, ICD10: E86.0 - follow progress. 3. Essential hypertension, benign - ICD9: 401.1, ICD10: I10 - good control 4. Hypothyroidism, unspecified type - ICD9: 244.9, ICD10: E03.9 - stable. 5. Type 2 diabetes mellitus without complication, without long-term current use of insulin (HCC) - ICD9: 250.00, ICD10: E11.9 - have been poorly controlled. Continue to see endo. Kb Lackey MD documented in this encounterRegency [facility]03-08-2023 Miscellaneous Notes* Telephone Encounter - Capri Mccauley RN - 06/12/2022 10:41 AM EST Call placed to patient and spoke with . Message given. Scarlet verbalizes understanding. Capri Mccauley RN * Telephone Encounter - Kb Lackey MD - 06/12/2022 8:48 AM EST Ok. Sounds good. Make sure he follows up and let us know if any other problems. * Telephone Encounter - Capri Mccauley RN - 06/12/2022 8:38 AM EST Spouse (Scarlet) calls to update provider since TCM follow up call. Scarlet reports that patient is now compliant with taking his medications including the antibiotic for UTI and tolerating. She reports heis voiding ok and seems to be feeling better. Patient still has some low blood sugar readings and dizziness at times. Scarlet has reached out to Salvador Kemp to advise on insulin orders. Capri Mccauley RN documented in this encounterRegency [facility]03-06-2023 History of Present illness Narrative* Salomonlina Hallmanantonio AYERS - 06/10/2022 3:39 PM EST TRANSITION CARE MANAGEMENT (TCM) INITIAL CONTACT Merchandise [employer] Outreach Provider Action/FYI: Insulin was increased to 16 units in the morning and 10 units in the evening. Glucose was 99 in themorning and they thought was too low. He didn't feel well when taking the ATB but was taking on empty stomach. Advised importance of taking and to try with food. Asked for update on him Friday/. Also told to call sooner if unable to tolerate ATB or if glucose is dropping too low. verbalizes understanding Initial contact with patient post discharge, spoke to spouse. Patient identified by name and . TRANSITION CARE MANAGEMENT INITIAL OUTREACH DOCUMENTATION: No flowsheet data found. SUMMARY: -Pt discharged from [facility] on 06/07/22. -Admitted for: sepsis secondary to acute cystitis Do you have a hospital follow up appointment with your PCP? Appointment on 06/17/[address] Lackey. Yes. Remind patient of appointment date, time, and location. If not within 14 calendar days of discharge - please reschedule accordingly. MEDICATIONS: Many patients have questions or concerns about their medications once they are home. Were you prescribed any new medications? If yes, what are those medications? Cephalexin Were you told to hold any medications? No Were any of your medications discontinued? No Do you have any questions about getting or taking your medications? No Your discharge instructions/After visit Summary (AVS) are important in guiding you through the recovery process. Is there anything I might help you understand? No Do you have all the necessary equipment and supplies at home? Yes Medical records from recent hospitalization: Placed for provider to review documented in this encounterRegency [facility]03-02-[address] Buenrostro [facility] June 06, 2022 6:41pm Note Date/Time June 06, 2022 6:06 pm [facility] Medical Records Department [address] [place] [address] Progress Note - Hospitalist 06/06/22 1804 MR#: [id number] Acct: [id number] Name: JEAN-CLAUDE DOUGLAS Baljeet Rep #:[id number] : 1940 81 From: Dennys Buenrostro DO PCP: Dr. Kb Lackey MD Status:ADM I N Location: [place] [address] Reason for Visit Reason for Visit: Diagnoses Sepsis, unspecified organism (06/05/22) Urinary tract infection, site not specified (06/05/22) Subjective Subjective Patient was seen and examined today, his lactic acid remained elevated today, atthe time of this dictation, his temp is 99.7. Patient's pressures been trendinglower today, I have decided to place patient on IV fluids. Patient's insulin dosage was adjusted today. Objective Data Objective Data Vital Signs: Vital Signs Temp Pulse Resp BP Pulse Ox O2 Del Method 99.7 F H 85 18 94/54 L 92 Room Air 06/06/22 15:00 06/06/22 15:00 06/06/22 15:00 06/06/22 15:00 06/06/22 15:00 06/06/22 15:00 Oxygen Delivery Method Room Air Weight: 67.3 kg Body Mass Index (BMI) 21.2 Intake & Output: Intake and Output for Last 24 Hours 06/04/22 06/05/22 06/06/22 23:59 23:59 23:59 Intake Total 1050 / 1050 2462.35 / 2462.35 Balance 1050 / 1050 2462.35 / 2462.35 Lab / Micro Data Result Diagrams: 06/06/22 04:21 06/06/22 04:21 Labs: Laboratory Results - last 24 hr 06/05/22 18:04: WBC 11.6 H, RBC 4.25 L, Hgb 12.8 L, Hct 39.0 L, MCV 91.8, MCH 30.1, MCHC 32.8, RDW Std Deviation 40.7, RDW Coeff of Moise 12.1, Plt Count 155, MPV 10.9, Immature Gran % (Auto) 0.500, Neut % (Auto) 93.5 H, Lymph % (Auto) 3.7L, Prairie % (Auto) 1.8, Eos % (Auto) 0.2, Baso % (Auto) 0.3, Absolute Neuts (auto)10.8 H, Absolute Lymphs (auto) 0.43 L, Nucleated RBC % 0, Differential Comment SCANNED 06/05/22 18:04: PT 13.6, INR 1.1, APTT 25.0 06/05/22 18:04: Sodium 144, Potassium 3.4 L, Chloride 110 H, Carbon Dioxide 27.0, Anion Gap 7, BUN 34 H, Creatinine 1.20, Estim Creat Clear Calc 49.70, Est GFR (MDRD) Af Amer 75, Est GFR (MDRD) Non-Af 62, BUN/Creatinine Ratio 28.3 H, Glucose 166 H, Calcium 9.3, Total Bilirubin 0.50, AST 11 L, ALT 14 L, Alkaline Phosphatase 58, Total Protein 6.4, Albumin 3.4, Globulin 3.0, Albumin/Globulin Ratio 1.1 06/05/22 18:04: Lactic Acid 2.9 H* 06/05/22 20:28: Urine Color Yellow, Urine Clarity Cloudy, Urine pH 6.0, Ur Specific Avalon 1.010, Urine Protein 30 H, Urine Glucose (UA) 100 H, Urine Ketones Negative, Urine Occult Blood 10 H, Urine Nitrite Negative, Urine Bilirubin Negative, Urine Urobilinogen Normal, Ur Leukocyte Esterase 500 H, Urine RBC 0 SEEN, Urine WBC 10-25 SEEN, Ur Squamous Epith Cells 0-5 SEEN, Urine Bacteria 2+, Urine Mucus 0 SEEN 06/05/22 23:38: Lactic Acid 3.7 H* 06/06/22 04:21: WBC 16.7 H, RBC 3.84 L, Hgb 11.7 L, Hct 36.0 L, MCV 93.8, MCH 30.5, MCHC 32.5, RDW Std Deviation 42.6, RDW Coeff of Moise 12.4, Plt Count 149 L,MPV 11.6, Immature Gran % (Auto) 1.000 H, Neut % (Auto) 93.4 H, Lymph % (Auto) 1.8 L, Prairie % (Auto) 3.6, Eos % (Auto) 0.0, Baso % (Auto) 0.2, Absolute Neuts (auto) 15.6 H, Absolute Lymphs (auto) 0.30 L, Nucleated RBC % 0, Differential Comment SCANNED 06/06/22 04:21: Sodium 142, Potassium 4.5, Chloride 109 H, Carbon Dioxide 21.0, Anion Gap 12, BUN 38 H, Creatinine 1.48 H, Estim Creat Clear Calc 38.53, Est GFR(MDRD) Af Amer 59 L, Est GFR (MDRD) Non-Af 49 L, BUN/Creatinine Ratio 25.7 H, Glucose 359 H, Calcium 8.3 L 06/06/22 04:21: Lactic Acid 3.2 H* 06/06/22 06:27: POC Glucose 322 H 06/06/22 08:49: Lactic Acid 3.3 H* 06/06/22 11:24: POC Glucose 414 H 06/06/22 16:10: POC Glucose 138 H Micro: Microbiology 06/05/22 18:00 Blood Culture (Wb) - Right Wrist Blood Culture - Preliminary 06/05/22 20:28 Urine, Clean Catch Urine Culture - Final Mixed Gram Positive Organisms 06/05/22 18:45 Nasal Secretion SARS-CoV-2 & FLU Antigen (Rapid) - Final Radiography Diagnostic Testing: Radiology Impression Chest X-Ray 06/05/22 18:56 IMPRESSION: No radiographic evidence of acute cardiopulmonary disease. Electronically Signed: Chad Cabral MD at 19:22 EST Reading Location ID and State: [facility] / [place] , Service support , Physical Exam Const alert and oriented x3 Constitutional Narrative: Patient appears weak, he is very hard of hearing General Appearance: cooperative, well kempt and well developed Orientation / Consciousness: awake, oriented to person, oriented to place and oriented to time HEENT normocephalic and head/scalp atraumatic Mouth: dry mucous membranes Eyes PERRL, EOMs intact bilaterally and conjunctivae normal Neck supple, no JVD, thyroid normal and no carotid bruits General: trachea midline Resp normal respiratory effort, no retractions, no use of accessory muscles and clearto auscultation bilaterally Auscultation: Negative for rales, rhonchi or wheezes Cardio regular rate, regular rhythm, S1 normal heart sound, S2 normal heart sound, no murmurs, no rub and no gallops GI normal to inspection, nondistended, normoactive bowel sounds, soft to palpation,non-tender and non-distended Extremity no clubbing, cyanosis or edema Skin no rashes or lesions noted General Skin Exam: no breakdown Neuro oriented x3, CN's II-XII intact bilaterally, no focal motor deficits and no sensory deficits noted Sensorium / Orientation: awake and alert Speech: speech normal Psych affect normal Assessment & Plan Assessment/Plan (1) UTI (urinary tract infection): PLAN: Plan 1. Sepsis secondary to acute cystitis-patient's urine culture has grown out mixed gram-positive organisms, I think his presentation is more in keeping however with sepsis with decreased blood pressure, elevated temperature, and elevated white count. Patient also had elevated lactic acid, continue Rocephin at this time. #2 uncontrolled type 2 diabetes-patient's insulin was adjusted, blood sugars will be monitored #3 acute dehydration-patient will be given IV fluids, labs will be rechecked #4 essential hypertension-patient's blood pressure medication will be held on account of hypotension\ #5 hypothyroidism-patient will remain on Synthroid Total clinical time spent by myself addressing patient's medical issues, reviewing all the data, and collaborating with patient's care team: 35 minutes Charges/Coding Visit Charges Inpatient E&M: 16175 Subs Hosp L2 06/06/22 1841 <Electronically signed by Dennys Buenrostro DO> Cosigner Signature (if applicable): CC: ~ Signed [facility] Work Phone: 1(265) 864-674603-02-2023 History of Present illness Narrative* Maribell Titus RN - 06/06/2022 3:13 PM EST [facility] TELEPHONIC OUTREACH Provider Action/FYI: Spoke with patient's Scarlet and validated involvement in this patient's care. Patient is currently in [facility] with UTI. Anticipated discharge in a couple of days Appointments for Next 60 Days Date Time Provider Location Dept Phone 06/17/2022 10:20 AM KB LACKEY [facility] [phone] Contact made with patient: Yes Patient identified by name and . Discussed care with spouse It s nice talking to you again. As a reminder, this is our bi-weekly check-in where I will be asking you questions about your health. This will only take a few minutes of your time. Is this a good time? Yes Symptoms What Chronic Disease(s) does the patient have: CKD Do you check your blood pressures at home? No Do you have new or worse shortness of breath with activity? No Are you having any other symptoms that your PCP needs to know about? Yes Symptoms: see note above Symptom Escalation DONTA Education Ordered -: No The patient required an escalation for symptom(s)? No Medications Do you have any questions about taking your medication or which medications you should be on? No deferred Do you need any medication refills at this time, including any of the medications you might take only when needed? No deferred Social We would like to make sure you have what you need so that your basic needs are met- including your personal safety, food, housing, transportation and medications? Would you like to speak with a social work manufacturing team member to help give you support for any of these needs? No deferred It can be normal to feel anxious or down during a time like this. Would you like to talk to a mental health professional about how you have been feeling? No deferred Closing Thank you for taking the time to talk with me today. We want to work with you to ensure that we arekeeping your medical condition(s) well-controlled and to keep you healthy and out of the doctor's office or hospital. It s also not too late for me to sign you up for automated weekly questionnaires through [employer]. This is an easy way for us to stay connected each week. Are you interested? No, I understand. We can always sign you up in the future if you change your mind. Just as a reminder, will continue to call you every other week to check in on your health. Our calls should take 10-15 minutes or less. Remember, if you have concerns in between our calls, please call your PCP's office right away. Thank you. Enter next patient outreach date for two weeks on the same day of the week as today in the Track PtOutreach and End outreach. documented in this encounterRegency [facility]03-02-2023 History and physical note Author Dr. Davis [facility] June 06, 2022 5:56am Note Date/Time June 05, 2022 10:2 4pm [facility] Medical Records Department [address] [place] [address] H&P Exam - Hospitalist 06/05/224 MR#: [id number] Acct: [id number] Name: JEAN-CLAUDE DOUGLAS Rep #:[id number] : 1940 81 From: Mk Davis MD PCP: Dr. Kb Lackey MD Status:ADM I N Location: [place] [id number] HPI - General General Date of Admission: 06/05/22 Date of Service: 06/05/22 Chief Complaint: Malaise HPI Narrative JEAN-CLAUDE DOUGLAS, is a 81 M with a significant history of hypertension; hypothyroidism and diabetes who presents emergency department with malaise that started few before presentation. Associated with symptoms is chills and rigors. Also patient had bilateral leg pain. Patient denies any urinary symptoms. While at the emergency department and after patient has received his IV antibiotics patient had loose stools. [facility] Medical History Benign essential hypertension Cataract Diabetes Diabetes mellitus gallbladder Hearing problem Hernia Hypertension Hypothyroidism Hypothyroidism (acquired) Thyroid disease Vision problem Home Medications Levothyroxine 137 mcg PO DAILY hypothyroidism 03/17/14 [History Last Taken Unknown] cyanocobalamin (vitamin B-12) 500 mcg tablet 1,000 mcg PO DAILY@0800 03/17/14 [History Last Taken Unknown] ferrous sulfate 325 mg (65 mg iron) tablet 325 mg PO DAILY anemia 06/25/20 [History Last Taken Unknown] lancets 30 gauge and blood glucose strips combo pack ##1 06/27/20 [Rx Last Taken Unknown] cholecalciferol (vitamin D3) 25 mcg (1,000 unit) capsule 25 mcg PO DAILY 07/18/20 [History Last Taken Unknown] pen needle, diabetic, safety 30 gauge x 1/3 #100 ea 04/12/21 [Rx Last Taken Unknown] glimepiride 2 mg tablet 2 mg PO BID #180 tabs 09/12/21 [Rx Last Taken Unknown] metformin 500 mg tablet,extended release 24 hr 1,000 mg PO BID diabetes #360 tabs 09/12/21 [Rx Last Taken Unknown] lisinopril 20 mg tablet 20 mg PO DAILY 03/18/22 [History Last Taken Unknown] insulin aspart U-100 100 unit/mL (3 mL) subcutaneous pen (Novolog FlexPen U-100 Insulin aspart) 10 unit subcut DINNER 06/05/22 [History Last Taken Unknown] insulin aspart U-100 100 unit/mL (3 mL) subcutaneous pen (Novolog FlexPen U-100 Insulin aspart) 16 unit subcut BREAKFAST 06/05/22 [History Last Taken Unknown] Allergy/AdvReac Type Severity Reaction Status Date / Time No Known Allergies Allergy Verified 06/05/22 16:34 Family History Other Cancer Surgical History History of cholecystectomy Social History Smoking Status: Former smoker alcohol intake: current alcohol intake frequency: 0-2 drinks per day substance use type: does not use what type of physical activity do you participate in: walking frequency: daily ROS ROS Narrative Pertinent positives and pertinent negatives as noted in HPI. All other systems were reviewed and are negative Vital Signs Vital Signs Vital Signs: 06/05/22 16:31 06/05/22 18:34 06/05/22 18:40 Temperature 100.9 F H 102.9 F H Temperature Source Temporal Oral Pulse Rate 136 H 105 H Respiratory Rate 16 18 Respiratory Effort Respiratory Pattern Blood Pressure 122/74 H 144/79 H Blood Pressure Mean 90 100 Pulse Ox 96 96 Oxygen Delivery Method Room Air Room Air Room Air 06/05/22 18:41 06/05/22 18:54 06/05/22 21:22 Temperature 102.9 F H Temperature Source Oral Pulse Rate 101 H 120 H Respiratory Rate 22 H 18 Respiratory Effort Normal Non-Labored Respiratory Pattern Tachypnea Blood Pressure 131/78 H 113/70 Blood Pressure Mean 95 84 Pulse Ox 97 95 Oxygen Delivery Method Room Air Room Air Weight Weight: 70.4 kg Body Mass Index (BMI) 22.2 Physical Exam Narrative Physical exam: General: Well-nourished, well-developed. Head: Normocephalic, atraumatic, no tenderness Eyes: Vision is grossly intact. EOMI ENT, no trauma, moist mucous membranes, no rhinorrhea Neck: Nontender, No thyromegaly. CVS: Regular rate and rhythm. S1-S2 present. No murmur, gallop or rub. Respiratory : clear to auscultation bilaterally, chest wall nontender, no wheezing Abdomen: Soft, nontender, nondistended, normal bowel sounds, no masses : Deferred Back: Nontender, no CVA tenderness, no midline spinal tenderness, deformities, step-offs Extremities: Nontender full range of motion, no trauma Skin: Normal color, no trauma, abrasions Neuro: Alert, oriented, cranial nerves II through XII grossly intact. Psychiatry: Normal mood. Normal affect. Not depressed. Not anxious. Results Lab / Micro Data Result Diagrams: 06/05/22 18:04 06/05/22 18:04 Labs: Laboratory Results - last 24 hr 06/05/22 18:04: WBC 11.6 H, RBC 4.25 L, Hgb 12.8 L, Hct 39.0 L, MCV 91.8, MCH 30.1, MCHC 32.8, RDW Std Deviation 40.7, RDW Coeff of Moise 12.1, Plt Count 155, MPV 10.9, Immature Gran % (Auto) 0.500, Neut % (Auto) 93.5 H, Lymph % (Auto) 3.7L, Prairie % (Auto) 1.8, Eos % (Auto) 0.2, Baso % (Auto) 0.3, Absolute Neuts (auto)10.8 H, Absolute Lymphs (auto) 0.43 L, Nucleated RBC % 0, Differential Comment SCANNED 06/05/22 18:04: PT 13.6, INR 1.1, APTT 25.0 06/05/22 18:04: Sodium 144, Potassium 3.4 L, Chloride 110 H, Carbon Dioxide 27.0, Anion Gap 7, BUN 34 H, Creatinine 1.20, Estim Creat Clear Calc 49.70, Est GFR (MDRD) Af Amer 75, Est GFR (MDRD) Non-Af 62, BUN/Creatinine Ratio 28.3 H, Glucose 166 H, Calcium 9.3, Total Bilirubin 0.50, AST 11 L, ALT 14 L, Alkaline Phosphatase 58, Total Protein 6.4, Albumin 3.4, Globulin 3.0, Albumin/Globulin Ratio 1.1 06/05/22 18:04: Lactic Acid 2.9 H* 06/05/22 20:28: Urine Color Yellow, Urine Clarity Cloudy, Urine pH 6.0, Ur Specific A[place]on 1.010, Urine Protein 30 H, Urine Glucose (UA) 100 H, Urine Ketones Negative, Urine Occult Blood 10 H, Urine Nitrite Negative, Urine Bilirubin Negative, Urine Urobilinogen Normal, Ur Leukocyte Esterase 500 H, Urine RBC 0 SEEN, Urine WBC 10-25 SEEN, Ur Squamous Epith Cells 0-5 SEEN, Urine Bacteria 2+, Urine Mucus 0 SEEN Micro: Microbiology 06/05/22 18:45 Nasal Secretion SARS-CoV-2 & FLU Antigen (Rapid) - Final Radiology Impression Chest X-Ray 06/05/22 18:56 IMPRESSION: No radiographic evidence of acute cardiopulmonary disease. Electronically Signed: Chad Cabral MD at 19:22 EST Reading Location ID and State: [facility] / [place] , Service support , Assessment & Plan Assessment/Plan (1) UTI (urinary tract infection): (2) Sepsis: PLAN: Plan Sepsis secondary UTI The patient presented with sepsis due to (UTI) with acute sepsis related organ dysfunction as evidenced by (lactic acidosis with initial lactic acid of 2.9.). SIRS criteria: Tmax of 102.9 Fahrenheit. Heart rate more than 90 organ dysfunction: Lactate more than 2 mmol/L (of note metformin could be contributing) Trend lactic acid. While at the [facility] documented blood pressure was 86/56 (MAP of 66). One MAP was 64. 30 mm/kg bolus normal saline initiated. Urine culture and blood culture ordered emergency department, follow. Diarrhea Enteric pathogen panel. Supportive treatment with IV fluids. Acidophilus ordered. History of hypertension With hypotension Home lisinopril held. Trend blood pressures. Diabetes mellitus Patient with mild hyperglycemia on presentation, not within goal. Home metformin held. Prandial insulin held. Basal insulin continued. Accu-Chek with correction scale insulin ordered. DVT prophylaxis: Subcutaneous Lovenox ordered. Charges/Coding Visit Charges Inpatient E&M: 31216 Init Hosp L3 06/06/22 0555 <Electronically signed by Mk Davis MD> Cosigner Signature (if applicable): CC: Dr. Mk Davis MD; Dr. Kb Lackey MD~ Signed ADDENDUM by Dr. Mk Davis MD on 06/06/22 at 0556 Addendum CKD stage II Stable Diabetes mellitus Glimepiride was also continued. 06/06/22 0556<Electronically signed by Mk Davis MD> Cosigner Signature (if applicable): cc: Dr. Mk Davis MD; Dr. Kb Lackey MD ~* Signed [facility] Work Phone: [phone]) 342-463603-02-[address] Garcia [facility] June 05, 2022 10:17pm Note Date/Time June 05, 2022 5:45 pm [facility] Medical Records Department [address] [place] [address] Emergency Department Summary 06/05/22 MR#: [id number] Acct: [id number] Name: JEAN-CLAUDE DOUGLAS Rep #:[id number] : 1940 81 From: Andres Garcia MD PCP: Dr. Kb Lackey MD Status:REG E R Location: ED HPI History of Present Illness Chief Complaint: General Illness Narrative Narrative: 81-year-old male past medical history of hypertension, diabetes, hypothyroidism presents with feelings of malaise and fatigue, and slightly elevated blood sugars. He states he started not feeling well today. He took his blood sugar and it was elevated in the 200s. He denies any nausea or vomiting. No dysuria or hematuria, no problems with bowel movements. He was not feeling well and when they brought him to the emergency department they noticed that he had a slight fever. He denies any exacerbating or alleviating factors, just stating that he did not feel well. No cough, runny nose, sore throat, or other symptoms. However, his did state that he felt chills this morning. [facility] Medical History Benign essential hypertension Cataract Diabetes Diabetes mellitus gallbladder Hearing problem Hernia Hypertension Hypothyroidism Hypothyroidism (acquired) Thyroid disease Vision problem Home Medications Levothyroxine 137 mcg PO DAILY hypothyroidism 03/17/14 [History Last Taken Unknown] cyanocobalamin (vitamin B-12) 500 mcg tablet 1,000 mcg PO DAILY@0800 03/17/14 [History Last Taken Unknown] ferrous sulfate 325 mg (65 mg iron) tablet 325 mg PO DAILY anemia 06/25/20 [History Last Taken Unknown] lancets 30 gauge and blood glucose strips combo pack ##1 06/27/20 [Rx Last Taken Unknown] cholecalciferol (vitamin D3) 25 mcg (1,000 unit) capsule 25 mcg PO DAILY 07/18/20 [History Last Taken Unknown] pen needle, diabetic, safety 30 gauge x 1/3 #100 ea 04/12/21 [Rx Last Taken Unknown] glimepiride 2 mg tablet 2 mg PO BID #180 tabs 09/12/21 [Rx Last Taken Unknown] metformin 500 mg tablet,extended release 24 hr 1,000 mg PO BID diabetes #360 tabs 09/12/21 [Rx Last Taken Unknown] lisinopril 20 mg tablet 20 mg PO DAILY 03/18/22 [History Last Taken Unknown] insulin aspart U-100 100 unit/mL (3 mL) subcutaneous pen (Novolog FlexPen U-100 Insulin aspart) 10 unit subcut DINNER 06/05/22 [History Last Taken Unknown] insulin aspart U-100 100 unit/mL (3 mL) subcutaneous pen (Novolog FlexPen U-100 Insulin aspart) 16 unit subcut BREAKFAST 06/05/22 [History Last Taken Unknown] Allergy/AdvReac Type Severity Reaction Status Date / Time No Known Allergies Allergy Verified 06/05/22 16:34 Surgical History History of cholecystectomy Social History Smoking Status: Former smoker alcohol intake: current alcohol intake frequency: 0-2 drinks per day substance use type: does not use what type of physical activity do you participate in: walking frequency: daily ROS ROS ED ROS Narrative Constitutional: Positive fever, positive chills. Positive malaise and fatigue. HEENT: No sore throat. No neck pain. No loss of vision. No rhinorrhea. Cardiovascular: No chest pain. No palpitations. No pedal edema. Respiratory: No cough, no shortness of breath. Abdominal: No abdominal pain. No nausea. No vomiting. Genitourinary: No dysuria. No hematuria. Musculoskeletal: No myalgias. No arthralgias. Neurologic: No headaches. No dizziness. No lightheadedness. Skin: No rash. No change in color. Psychiatric: No depression. No anxiety. EXAM Physical Exam Narrative Exam Narrative: Afebrile. Vital signs noted. HEENT: Normocephalic. Atraumatic. PERRL, EOMI. Neck soft and supple. No pointtenderness or step off. Cardiovascular: Positive tachycardia. No murmurs, rubs, or gallops appreciated. Respiratory: No tachypnea. Lungs clear to auscultation bilaterally. Gastrointestinal: Abdomen soft, nontender, with normoactive bowel sounds. No rebound or guarding. Neurological: Awake. Alert. Nonfocal, nonlateralizing. Skin: No rash. Normal color. No pallor. Musculoskeletal: No pedal edema. Full range of motion extremities. Const Vital Signs: 06/05/22 16:31 06/05/22 18:34 06/05/22 18:40 Temperature 100.9 F H 102.9 F H Temperature Source Temporal Oral Pulse Rate 136 H 105 H Respiratory Rate 16 18 Respiratory Effort Respiratory Pattern Blood Pressure 122/74 H 144/79 H Blood Pressure Mean 90 100 Pulse Ox 96 96 Oxygen Delivery Method Room Air Room Air Room Air 06/05/22 18:41 06/05/22 18:54 06/05/22 21:22 Temperature 102.9 F H Temperature Source Oral Pulse Rate 101 H 120 H Respiratory Rate 22 H 18 Respiratory Effort Normal Non-Labored Respiratory Pattern Tachypnea Blood Pressure 131/78 H 113/70 Blood Pressure Mean 95 84 Pulse Ox 97 95 Oxygen Delivery Method Room Air Room Air MDM MDM MDM Narrative Medical decision making narrative: In triage, patient had elevated temperature of 100.9 ?F and was tachycardic at 136 bpm. Sepsis work-up was pursued. I will also obtain an EKG to see if this is a regular rhythm versus atrial fibrillation. EKG was obtained and interpreted by myself which demonstrates sinus tachycardia at [address] changes. No STEMI. Blood cultures are currently pending. In review of his laboratory work he has an elevated white count of 11.6 with hemoglobin 12.8. Platelet count normal at 155. Coagulation studies are negative with an INR of 1.1 and an APTT of 25. Electrolyte panel shows sodium slightly low at 3.4 which was replaced orally with a BUN of 34 and a creatinine of 1.20. Glucose elevated at 166 with a normal anion gap of 7. LFTs show an AST low at 11 and an ALT low at 14. Lactic acid is elevated at 2.9. Urinalysis shows 10-25 WBCs with 2+ bacteria. Chest x-ray interpreted by myself shows no evidence of an acute pulmonary process, no pneumonia or pneumothorax. I reviewed the radiology report which confirms my interpretation. Respiratory swabs were negative for COVID and influenza. At this point in time, I do feel that the source of his sepsis may be secondary to a UTI. He did have an elevated temperature of 102.9 even after Tylenol. He received Rocephin as an antibiotic. Patient was discussed with Dr. Davis for admission to the PCU. Patient is in stable condition. Lab Data Attestation: I reviewed the patient's lab results. Labs: Laboratory Results - last 24 hr 06/05/22 06/05/22 06/05/22 18:04 18:04 18:04 WBC 11.6 H RBC 4.25 L Hgb 12.8 L Hct 39.0 L MCV 91.8 MCH 30.1 MCHC 32.8 RDW Std Deviation 40.7 RDW Coeff of Moise 12.1 Plt Count 155 MPV 10.9 Immature Gran % (Auto) 0.500 Neut % (Auto) 93.5 H Lymph % (Auto) 3.7 L [place]irie % (Auto) 1.8 Eos % (Auto) 0.2 Baso % (Auto) 0.3 Absolute Neuts (auto) 10.8 H Absolute Lymphs (auto) 0.43 L Nucleated RBC % 0 Differential Comment SCANNED PT 13.6 INR 1.1 APTT 25.0 Sodium 144 Potassium 3.4 L Chloride 110 H Carbon Dioxide 27.0 Anion Gap 7 BUN 34 H Creatinine 1.20 Estim Creat Clear Calc 49.70 Est GFR (MDRD) Af Amer 75 Est GFR (MDRD) Non-Af 62 BUN/Creatinine Ratio 28.3 H Glucose 166 H Lactic Acid Calcium 9.3 Total Bilirubin 0.50 AST 11 L ALT 14 L Alkaline Phosphatase 58 Total Protein 6.4 Albumin 3.4 Globulin 3.0 Albumin/Globulin Ratio 1.1 Urine Color Urine Clarity Urine pH Ur Specific A[place]on Urine Protein Urine Glucose (UA) Urine Ketones Urine Occult Blood Urine Nitrite Urine Bilirubin Urine Urobilinogen Ur Leukocyte Esterase Urine RBC Urine WBC Ur Squamous Epith Cells Urine Bacteria Urine Mucus 06/05/22 06/05/22 18:04 20:28 WBC RBC Hgb Hct MCV MCH MCHC RDW Std Deviation RDW Coeff of Moise Plt Count MPV Immature Gran % (Auto) Neut % (Auto) Lymph % (Auto) Prairie % (Auto) Eos % (Auto) Baso % (Auto) Absolute Neuts (auto) Absolute Lymphs (auto) Nucleated RBC % Differential Comment PT INR APTT Sodium Potassium Chloride Carbon Dioxide Anion Gap BUN Creatinine Estim Creat Clear Calc Est GFR (MDRD) Af Amer Est GFR (MDRD) Non-Af BUN/Creatinine Ratio Glucose Lactic Acid 2.9 H* Calcium Total Bilirubin AST ALT Alkaline Phosphatase Total Protein Albumin Globulin Albumin/Globulin Ratio Urine Color Yellow Urine Clarity Cloudy Urine pH 6.0 Ur Specific Avalon 1.010 Urine Protein 30 H Urine Glucose (UA) 100 H Urine Ketones Negative Urine Occult Blood 10 H Urine Nitrite Negative Urine Bilirubin Negative Urine Urobilinogen Normal Ur Leukocyte Esterase 500 H Urine RBC 0 SEEN Urine WBC 10-25 SEEN Ur Squamous Epith Cells 0-5 SEEN Urine Bacteria 2+ Urine Mucus 0 SEEN Radiography Diagnostic Testing: Clinical Impression(s) from Imaging Studies Chest X-Ray 06/05/22 18:56 IMPRESSION: No radiographic evidence of acute cardiopulmonary disease. Electronically Signed: Chad Cabral MD at 19:22 EST Reading Location ID and State: [facility] / [place] , Service support , Discharge Plan Dx/Rx/DC Orders Clinical Impression: Diabetes, Sepsis, UTI (urinary tract infection), Hypokalemia, Mild dehydration Disposition Disposition: Acute Care Hospital [facility] What to do if you have Problems For any increased pain, shortness of breath, bleeding, nausea or vomiting, chestpain, or any unexpected problems, contact your Primary Care Provider. Call [facility] ([phone]) or report to the closest Emergency Room. Call 911 if necessary. 06/05/222216 <Electronically signed by Andres Garcia MD> Cosigner Signature (if applicable): CC: Dr. Kb Lackey MD ~ Signed [facility] Work Phone: [phone] 316-856203-01-[address] Garcia [facility] June 05, 2022 10:17pm Note Date/Time June 05, 2022 5:45 pm [facility] Medical Records Department [address] [place] [address] Emergency Department Summary 06/05/22 MR#: [id number] Acct: [id number] Name: JEAN-CLAUDE DOUGLAS Rep #:[id number] : 1940 81 From: Andres Garcia MD PCP: Dr. Kb Lackey MD Status:REG E R Location: ED [facility] History of Present Illness Chief Complaint: General Illness Narrative Narrative: 81-year-old male past medical history of hypertension, diabetes, hypothyroidism presents with feelings of malaise and fatigue, and slightly elevated blood sugars. He states he started not feeling well today. He took his blood sugar and it was elevated in the 200s. He denies any nausea or vomiting. No dysuria or hematuria, no problems with bowel movements. He was not feeling well and when they brought him to the emergency department they noticed that he had a slight fever. He denies any exacerbating or alleviating factors, just stating that he did not feel well. No cough, runny nose, sore throat, or other symptoms. However, his did state that he felt chills this morning. [facility] Medical History Benign essential hypertension Cataract Diabetes Diabetes mellitus gallbladder Hearing problem Hernia Hypertension Hypothyroidism Hypothyroidism (acquired) Thyroid disease Vision problem Home Medications Levothyroxine 137 mcg PO DAILY hypothyroidism 03/17/14 [History Last Taken Unknown] cyanocobalamin (vitamin B-12) 500 mcg tablet 1,000 mcg PO DAILY@0800 03/17/14 [History Last Taken Unknown] ferrous sulfate 325 mg (65 mg iron) tablet 325 mg PO DAILY anemia 06/25/20 [History Last Taken Unknown] lancets 30 gauge and blood glucose strips combo pack ##1 06/27/20 [Rx Last Taken Unknown] cholecalciferol (vitamin D3) 25 mcg (1,000 unit) capsule 25 mcg PO DAILY 07/18/20 [History Last Taken Unknown] pen needle, diabetic, safety 30 gauge x 1/3 #100 ea 04/12/21 [Rx Last Taken Unknown] glimepiride 2 mg tablet 2 mg PO BID #180 tabs 09/12/21 [Rx Last Taken Unknown] metformin 500 mg tablet,extended release 24 hr 1,000 mg PO BID diabetes #360 tabs 09/12/21 [Rx Last Taken Unknown] lisinopril 20 mg tablet 20 mg PO DAILY 03/18/22 [History Last Taken Unknown] insulin aspart U-100 100 unit/mL (3 mL) subcutaneous pen (Novolog FlexPen U-100 Insulin aspart) 10 unit subcut DINNER 06/05/22 [History Last Taken Unknown] insulin aspart U-100 100 unit/mL (3 mL) subcutaneous pen (Novolog FlexPen U-100 Insulin aspart) 16 unit subcut BREAKFAST 06/05/22 [History Last Taken Unknown] Allergy/AdvReac Type Severity Reaction Status Date / Time No Known Allergies Allergy Verified 06/05/22 16:34 Surgical History History of cholecystectomy Social History Smoking Status: Former smoker alcohol intake: current alcohol intake frequency: 0-2 drinks per day substance use type: does not use what type of physical activity do you participate in: walking frequency: daily ROS ROS ED ROS Narrative Constitutional: Positive fever, positive chills. Positive malaise and fatigue. HEENT: No sore throat. No neck pain. No loss of vision. No rhinorrhea. Cardiovascular: No chest pain. No palpitations. No pedal edema. Respiratory: No cough, no shortness of breath. Abdominal: No abdominal pain. No nausea. No vomiting. Genitourinary: No dysuria. No hematuria. Musculoskeletal: No myalgias. No arthralgias. Neurologic: No headaches. No dizziness. No lightheadedness. Skin: No rash. No change in color. Psychiatric: No depression. No anxiety. EXAM Physical Exam Narrative Exam Narrative: Afebrile. Vital signs noted. HEENT: Normocephalic. Atraumatic. PERRL, EOMI. Neck soft and supple. No pointtenderness or step off. Cardiovascular: Positive tachycardia. No murmurs, rubs, or gallops appreciated. Respiratory: No tachypnea. Lungs clear to auscultation bilaterally. Gastrointestinal: Abdomen soft, nontender, with normoactive bowel sounds. No rebound or guarding. Neurological: Awake. Alert. Nonfocal, nonlateralizing. Skin: No rash. Normal color. No pallor. Musculoskeletal: No pedal edema. Full range of motion extremities. Const Vital Signs: 06/05/22 16:31 06/05/22 18:34 06/05/22 18:40 Temperature 100.9 F H 102.9 F H Temperature Source Temporal Oral Pulse Rate 136 H 105 H Respiratory Rate 16 18 Respiratory Effort Respiratory Pattern Blood Pressure 122/74 H 144/79 H Blood Pressure Mean 90 100 Pulse Ox 96 96 Oxygen Delivery Method Room Air Room Air Room Air 06/05/22 18:41 06/05/22 18:54 06/05/22 21:22 Temperature 102.9 F H Temperature Source Oral Pulse Rate 101 H 120 H Respiratory Rate 22 H 18 Respiratory Effort Normal Non-Labored Respiratory Pattern Tachypnea Blood Pressure 131/78 H 113/70 Blood Pressure Mean 95 84 Pulse Ox 97 95 Oxygen Delivery Method Room Air Room Air MDM MDM MDM Narrative Medical decision making narrative: In triage, patient had elevated temperature of 100.9 ?F and was tachycardic at 136 bpm. Sepsis work-up was pursued. I will also obtain an EKG to see if this is a regular rhythm versus atrial fibrillation. EKG was obtained and interpreted by myself which demonstrates sinus tachycardia at [address] changes. No STEMI. Blood cultures are currently pending. In review of his laboratory work he has an elevated white count of 11.6 with hemoglobin 12.8. Platelet count normal at 155. Coagulation studies are negative with an INR of 1.1 and an APTT of 25. Electrolyte panel shows sodium slightly low at 3.4 which was replaced orally with a BUN of 34 and a creatinine of 1.20. Glucose elevated at 166 with a normal anion gap of 7. LFTs show an AST low at 11 and an ALT low at 14. Lactic acid is elevated at 2.9. Urinalysis shows 10-25 WBCs with 2+ bacteria. Chest x-ray interpreted by myself shows no evidence of an acute pulmonary process, no pneumonia or pneumothorax. I reviewed the radiology report which confirms my interpretation. Respiratory swabs were negative for COVID and influenza. At this point in time, I do feel that the source of his sepsis may be secondary to a UTI. He did have an elevated temperature of 102.9 even after Tylenol. He received Rocephin as an antibiotic. Patient was discussed with Dr. Davis for admission to the PCU. Patient is in stable condition. Lab Data Attestation: I reviewed the patient's lab results. Labs: Laboratory Results - last 24 hr 06/05/22 06/05/22 06/05/22 18:04 18:04 18:04 WBC 11.6 H RBC 4.25 L Hgb 12.8 L Hct 39.0 L MCV 91.8 MCH 30.1 MCHC 32.8 RDW Std Deviation 40.7 RDW Coeff of Moise 12.1 Plt Count 155 MPV 10.9 Immature Gran % (Auto) 0.500 Neut % (Auto) 93.5 H Lymph % (Auto) 3.7 L [place] % (Auto) 1.8 Eos % (Auto) 0.2 Baso % (Auto) 0.3 Absolute Neuts (auto) 10.8 H Absolute Lymphs (auto) 0.43 L Nucleated RBC % 0 Differential Comment SCANNED PT 13.6 INR 1.1 APTT 25.0 Sodium 144 Potassium 3.4 L Chloride 110 H Carbon Dioxide 27.0 Anion Gap 7 BUN 34 H Creatinine 1.20 Estim Creat Clear Calc 49.70 Est GFR (MDRD) Af Amer 75 Est GFR (MDRD) Non-Af 62 BUN/Creatinine Ratio 28.3 H Glucose 166 H Lactic Acid Calcium 9.3 Total Bilirubin 0.50 AST 11 L ALT 14 L Alkaline Phosphatase 58 Total Protein 6.4 Albumin 3.4 Globulin 3.0 Albumin/Globulin Ratio 1.1 Urine Color Urine Clarity Urine pH Ur Specific [place] Urine Protein Urine Glucose (UA) Urine Ketones Urine Occult Blood Urine Nitrite Urine Bilirubin Urine Urobilinogen Ur Leukocyte Esterase Urine RBC Urine WBC Ur Squamous Epith Cells Urine Bacteria Urine Mucus 06/05/22 06/05/22 18:04 20:28 WBC RBC Hgb Hct MCV MCH MCHC RDW Std Deviation RDW Coeff of Moise Plt Count MPV Immature Gran % (Auto) Neut % (Auto) Lymph % (Auto) [place] % (Auto) Eos % (Auto) Baso % (Auto) Absolute Neuts (auto) Absolute Lymphs (auto) Nucleated RBC % Differential Comment PT INR APTT Sodium Potassium Chloride Carbon Dioxide Anion Gap BUN Creatinine Estim Creat Clear Calc Est GFR (MDRD) Af Amer Est GFR (MDRD) Non-Af BUN/Creatinine Ratio Glucose Lactic Acid 2.9 H* Calcium Total Bilirubin AST ALT Alkaline Phosphatase Total Protein Albumin Globulin Albumin/Globulin Ratio Urine Color Yellow Urine Clarity Cloudy Urine pH 6.0 Ur Specific [place] 1.010 Urine Protein 30 H Urine Glucose (UA) 100 H Urine Ketones Negative Urine Occult Blood 10 H Urine Nitrite Negative Urine Bilirubin Negative Urine Urobilinogen Normal Ur Leukocyte Esterase 500 H Urine RBC 0 SEEN Urine WBC 10-25 SEEN Ur Squamous Epith Cells 0-5 SEEN Urine Bacteria 2+ Urine Mucus 0 SEEN Radiography Diagnostic Testing: Clinical Impression(s) from Imaging Studies Chest X-Ray 06/05/22 18:56 IMPRESSION: No radiographic evidence of acute cardiopulmonary disease. Electronically Signed: Chad Cabral MD at 19:22 EST Reading Location ID and State: [facility] / [place] , Service support , Discharge Plan Dx/Rx/DC Orders Clinical Impression: Diabetes, Sepsis, UTI (urinary tract infection), Hypokalemia, Mild dehydration Disposition Disposition: [facility] What to do if you have Problems For any increased pain, shortness of breath, bleeding, nausea or vomiting, chestpain, or any unexpected problems, contact your Primary Care Provider. Call [facility] ([phone]) or report to the closest Emergency Room. Call 911 if necessary. 06/05/222216 <Electronically signed by Andres Garcia MD> Cosigner Signature (if applicable): CC: Dr. Kb Lackey MD ~ Signed [facility] Work Phone: [phone]) 426-939702-02-2023 History of Present illness Narrative* Maribell Titus RN - 05/09/2022 8:32 AM EST [facility] TELEPHONIC OUTREACH Provider Action/FYI: 2nd attempt Appointments for Next 60 Days Date Time Provider Location Dept Phone 06/17/2022 10:20 AM KB LACKEY [facility] [phone] Contact made with patient: No - Unable to leave message Entered next patient outreach date for the following business day, if third call please enter next outreach date for one week in the Track Pt. Outreach - End Outreach * Maribell Titus RN - 05/08/2022 4:02 PM EST [facility] TELEPHONIC OUTREACH Provider Action/FYI: Appointments for Next 60 Days Date Time Provider Location Dept Phone 06/17/2022 10:20 AM KB LACKEY [facility] [phone] Contact made with patient: No - Unable to leave message Entered next patient outreach date for the following , if third call please enter next outreach date for one week in the Track Pt. Outreach - End Outreach [facility] Miscellaneous Notes* Telephone Encounter - Teresa Restrepo LPN - 04/25/2022 8:08 AM EST calling regarding Metformin. Pt was increased to taking 2 twice a day. Pharmacy needs a new rxsent to them per . This needs to be sent to [facility] mail order pharmacy. Patient has been identified by name and date of : Yes, Provider Dr. lackey Date 04/25/22 Time 8:10 am Spouse phones for refill(s): Requested Prescriptions Pending Prescriptions Disp Refills metFORMIN ER (GLUCOPHAGE XR) 500 mg 24 hr tablet 360 tablet 3 Sig: Take 2 tablets by mouth twice daily. Date of last office visit in primary care: 12/18/21 next apt 06/17/22 Last 2 Encounter Wt Readings: Date: Wt: 12/18/2021 64.5 kg (142 lb 3.2 oz) 06/15/2021 65.7 kg (144 lb 12.8 oz) Previous labs/tests for medication: Diabetes: Hemoglobin A1C Date Value 12/17/2021 12.1 05/02/2021 11.5 % 05/04/2020 7.1 % Thank you. Teresa Restrepo LPN documented in this encounterReg[facility]-04-2023 History of Present illness Narrative* Maribell Titus RN - 04/10/2022 5:01 PM EST [facility] TELEPHONIC OUTREACH Provider Action/FYI: Spoke with patient's Scarlet and validated involvement in this patient's care. Blood glucose a little high over the holidays Contact made with patient: Yes Patient identified by name and . Discussed care with spouse It s nice talking to you again. As a reminder, this is our bi-weekly check-in where I will be asking you questions about your health. This will only take a few minutes of your time. Is this a good time? Yes Symptoms What Chronic Disease(s) does the patient have: CKD Do you check your blood pressures at home? No Do you have new or worse shortness of breath with activity? No Do you feel like you are dehydrated for any reason, including not being able to eat or drink normally, or having less urine/much darker urine than normal for you? No Do you check your daily weight at home? No Are you having any other symptoms that your PCP needs to know about? No Symptoms: Symptom Escalation DONTA Education Ordered -: Yes The patient required an escalation for symptom(s)? No Medications Do you have any questions about taking your medication or which medications you should be on? No Do you need any medication refills at this time, including any of the medications you might take only when needed? No Social We would like to make sure you have what you need so that your basic needs are met- including your personal safety, food, housing and medications? Would you like to speak with a social work manufacturing team member to help give you support for any of these needs? No It can be normal to feel anxious or down during a time like this. Would you like to talk to a mental health professional about how you have been feeling? No Closing Thank you for taking the time to talk with me today. We want to work with you to ensure that we arekeeping your medical condition(s) well-controlled and to keep you healthy and out of the doctor's office or hospital. It s also not too late for me to sign you up for automated weekly questionnaires through [employer]. This is an easy way for us to stay connected each week. Are you interested? No, I understand. We can always sign you up in the future if you change your mind. Just as a reminder, will continue to call you every other week to check in on your health. Our calls should take 10-15 minutes or less. Remember, if you have concerns in between our calls, please call your PCP's office right away. Thank you. Enter next patient outreach date for two weeks on the same day of the week as today in the Track PtOutreach and End outreach. documented in this encounterReg[facility]12-06-[facility]22 History of Present illness Narrative* Maribell Titus RN - 03/12/2022 3:15 PM EST [facility] TELEPHONIC OUTREACH Provider Action/FYI: Spoke with patient's Scarlet and validated involvement in this patient's care. No concerns or questions today. Contact made with patient: Yes Patient identified by name and . Discussed care with spouse It s nice talking to you again. As a reminder, this is our bi-weekly check-in where I will be asking you questions about your health. This will only take a few minutes of your time. Is this a good time? Yes Symptoms What Chronic Disease(s) does the patient have: CKD Do you check your blood pressures at home? No Do you have new or worse shortness of breath with activity? No Do you feel like you are dehydrated for any reason, including not being able to eat or drink normally, or having less urine/much darker urine than normal for you? No Do you check your daily weight at home? No Are you having any other symptoms that your PCP needs to know about? No Symptom Escalation The patient required an escalation for symptom(s)? No Medications Do you have any questions about taking your medication or which medications you should be on? No Do you need any medication refills at this time, including any of the medications you might take only when needed? No Social We would like to make sure you have what you need so that your basic needs are met- including your personal safety, food, housing and medications? Would you like to speak with a social work manufacturing team member to help give you support for any of these needs? No It can be normal to feel anxious or down during a time like this. Would you like to talk to a mental health professional about how you have been feeling? No Closing Thank you for taking the time to talk with me today. We want to work with you to ensure that we arekeeping your medical condition(s) well-controlled and to keep you healthy and out of the doctor's office or hospital. It s also not too late for me to sign you up for automated weekly questionnaires through [employer]. This is an easy way for us to stay connected each week. Are you interested? No, I understand. We can always sign you up in the future if you change your mind. Just as a reminder, will continue to call you every other week to check in on your health. Our calls should take 10-15 minutes or less. Remember, if you have concerns in between our calls, please call your PCP's office right away. Thank you. Enter next patient outreach date for two weeks on the same day of the week as today in the Track PtOutreach and End outreach. documented in this encounterReg[facility]11-03-2022 Miscellaneous Notes* Telephone Encounter - Kisha Hightower - 02/07/2022 10:25 AM EDT Patient has been identified by name and date of : Yes Last office visit in this department: 12/18/2021 RX INSTRUCTIONS: Patient aware RX escripted to mail away pharmacy. No need to notify patient. Patient phones requesting refills as follows: Requested Prescriptions Pending Prescriptions Disp Refills blood sugar diagnostic (BLOOD GLUCOSE TEST) test strip 100 Strip 3 Sig: Test blood sugar(s) 1 times daily. Dx: Type 2 DM - Uncontrolled E11.65 Insulin: No Lancets lancets 100 Each 3 Sig: Test blood sugar(s) 1 times daily. Dx: Type 2 DM - Uncontrolled E11.65 Insulin: Yes Please review and advise. Kisha Bhatti Pss documented in this encounterRegency [facility]11-01-2022 Miscellaneous Notes* Telephone Encounter - Luis Mccrary LPN - 02/05/2022 11:59 AM EDT TC to pt, spoke /c pt Scarlet, notified of results/provider instructions. She verbalized understanding. Luis Mccrary LPN * Telephone Encounter - Kb Lackey MD - 02/04/2022 5:48 PM EDT Thyroid still looks over corrected. Change synthroid to 125 mcg a day. Recheck tsh in six weeks. documented in this encounterRegency [facility]09-14-2022 Miscellaneous Notes* Telephone Encounter - Luis Mccrary LPN - 12/19/2021 9:40 AM EDT TC to pt , notified of provider response. Pt verbalized understanding. Luisrosalie Mccrayr LPN * Telephone Encounter - Kb Lackey MD - 12/19/2021 8:42 AM EDT His tsh is low which indicates he might be on too much synthroid. Change to 137. Rx sent . Recheck tsh in six weeks. documented in this encounterRegency [facility]09-13-2022 History of Present illness Narrative* Kb Lackey MD - 12/18/2021 4:00 PM EDT No chief complaint on file. HPI: Patient presents today for office visit for 6 month follow up. HTN: Patient is compliant with meds Yes Monitors bp at home: Yes. Denies side effects: Yes. Chest pain: No. Headache: No. Dizziness: No. DM: Reports overall feeling well. Medication side effects: No. Home sugar check frequency/results:Once in the morning. Hypoglycemic spells: No. Watching diet: Yes. Unexpected weight loss: No. Polyuria, polydipsia: No. Vision Changes: No. Foot lesions or numbness or pain: No. Just saw endo. Last a1c was 12.1 They are seeing him again in three months. Reiterated need to bring it down. Hypothyroid: it looks like his last tsh was low per endo. He has not had it redrawn. His weight is stable. No palpitations. No edema. No gi issues Component Latest Ref Rng & Units 12/13/2021 WBC 3.70 - 11.00 k/uL 8.12 RBC 4.20 - 6.00 m/uL 4.53 Hemoglobin 13.0 - 17.0 g/dL 14.1 Hematocrit 39.0 - 51.0 % 42.4 MCV 80.0 - 100.0 fL 93.6 MCH 26.0 - 34.0 pg 31.1 MCHC 30.5 - 36.0 g/dL 33.3 RDW-CV 11.5 - 15.0 % 11.8 Platelet Count 150 - 400 k/uL 227 MPV 9.0 - 12.7 fL 12.0 Neut% % 62.2 Abs Neut (ANC) 1.45 - 7.50 k/uL 5.05 Lymph% % 27.0 Abs Lymph 1.00 - 4.00 k/uL 2.19 Prairie% % 8.5 Abs Prairie <0.87 k/uL 0.69 Eosin% % 1.2 Abs Eosin <0.46 k/uL 0.10 Baso% % 0.5 Abs Baso <0.11 k/uL 0.04 Immature Gran % % 0.6 IMMATURE GRANS (ABS) <0.10 k/uL 0.05 NRBC /100 WBC 0.0 Absolute nRBC <0.01 k/uL <0.01 DTYPE Auto Protein, Total 6.3 - 8.0 g/dL 6.9 Albumin 3.9 - 4.9 g/dL 4.2 Calcium 8.5 - 10.2 mg/dL 9.8 Bilirubin, Total 0.2 - 1.3 mg/dL 0.6 Alkaline Phosphatase 38 - 113 U/L 54 AST 14 - 40 U/L 18 ALT 10 - 54 U/L 13 Glucose 74 - 99 mg/dL 170 (H) BUN 9 - 24 mg/dL 25 (H) Creatinine 0.73 - 1.22 mg/dL 1.06 Sodium 136 - 144 mmol/L 142 Potassium 3.7 - 5.1 mmol/L 4.8 Chloride 97 - 105 mmol/L 102 CO2 22 - 30 mmol/L 28 Anion Gap 9 - 18 mmol/L 12 eGFR >=60 mL/min/1.73m 71 Iron 41 - 186 ug/dL 110 TIBC 232 - 386 ug/dL 275 Transferrin Saturation 15.0 - 57.0 % 40.0 Vitamin B12 232 - 1,245 pg/mL 802 MEDICATIONS: Current Outpatient Medications Medication Sig levothyroxine (SYNTHROID) 150 mcg tablet Take 1 tablet by mouth once daily. Take on empty stomach. For thyroid. Hold on Sundays blood sugar diagnostic (BLOOD GLUCOSE TEST) test strip Test blood sugar(s) 1 times daily. Dx: Type 2 DM - Uncontrolled E11.65 Insulin: No Lancets lancets Test blood sugar(s) 1 times daily. Dx: Type 2 DM - Uncontrolled E11.65 Insulin: Yes lisinopril (ZESTRIL, PRINIVIL) 20 mg tablet Take 1 tablet by mouth once daily. cyanocobalamin (VITAMIN B-12) 1,000 mcg tab Take 1 tablet by mouth once daily. metFORMIN ER (GLUCOPHAGE XR) 500 mg 24 hr tablet Take 2 tablets by mouth daily with breakfast. insulin glargine (LANTUS SOLOSTAR U-100 INSULIN) 100 unit/mL (3 mL) Inject 10 Units subcutaneously every morning. Using it prn per Dr. King isidro,iron,hjc-YH-buylvxa cmb.24 400 mcg tab Take 1 tablet by mouth once daily. Cholecalciferol, Vitamin D3, 1,000 unit cap Take 1 capsule by mouth once daily. No current facility-administered medications for this visit. ALLERGIES: ALLERGIES No Known Allergies PAST MEDICAL HISTORY Diagnosis Date B12 deficiency 2010 Elevated blood pressure 2011 Hearing loss Hypertension Hypothyroidism Major depressive disorder, recurrent episode, moderate (HCC) 01/26/2008 Other postablative hypothyroidism Severe major depression, single episode (HCC) 2008 PAST SURGICAL HISTORY Procedure Laterality Date CATARACT EXTRACTION HX Left 10/16/2017 CHOLECYSTECTOMY 2001 Cholecystectomy COLONOSCOPY FLX DX W/COLLJ SPEC WHEN PFRMD 07/07/2015 Colonoscopy EGD ESOPHAGOGASTRODUODENOSCOPY TRANSORAL DIAGNOSTIC 07/07/2015 EGD LAPAROSCOPY SURG RPR INITIAL INGUINAL HERNIA 12/24/06 RIGHT TONSILLECTOMY PRIMARY/SECONDARY <AGE 14 Tonsillectomy FAMILY HISTORY Problem Relation Age of Onset Cancer Mother stomach Colon Cancer Brother other (cirrhosis [Other]) Father None Brother None Brother None Brother None Sister Stroke Brother Social History Tobacco Use Smoking status: Former Packs/day: 1.00 Years: 25.00 Pack years: 25.00 Types: Cigarettes Quit date: 10/11/1980 Years since quittin.2 Smokeless tobacco: Never Vaping Use Vaping Use: Never used Substance Use Topics Alcohol use: No Drug use: No Reviewed current medications, allergies, past medical history, surgical history, family history andsocial history today. REVIEW OF SYSTEMS GI: Negative for change in bowel habit : Negative All other reviewed and negative other than HPI. HEALTH MAINTENANCE: Reviewed health maintenance issues today and recommended the following in detail. COVID-19 VACCINE-declines DILATED RETINAL EXAM -recommended. DEPRESSION SCREENING done HBA1C due on 07/31/2021 DIABETIC FOOT EXAM due on 11/08/2021 INFLUENZA-declines. VITALS: BP 120/70 Pulse (!) 48 Ht 177.8 cm (5' 10) Wt 64.5 kg (142 lb 3.2 oz) SpO2 92% BMI 20.40kg/m Last 4 Encounter Wt Readings: Date: Wt: 06/15/2021 65.7 kg (144 lb 12.8 oz) 11/08/2020 66.7 kg (147 lb) 07/12/2020 67.6 kg (149 lb) 05/11/2020 73 kg (161 lb) PHYSICAL EXAMINATION: General appearance: Well appearing, alert, in no acute distress, well-hydrated, well nourished. Skin: Skin color, texture, turgor normal, no suspicious rashes or lesions Head: Normocephalic, no masses, lesions, tenderness or abnormalities Lungs: Lungs clear to auscultation. No wheezing, rhonchi, rales Heart: RRR without murmur, gallop, or rubs. No ectopy Abdomen: Normal abdominal exam, Abdomen soft, non-tender. Bowel sounds normal. No masses, organomegaly Extremities: No deformities, edema, skin discoloration, clubbing or cyanosis. Good capillary refill. Feet:Shoes and socks removed, No deformities, ulcers, calluses, normal distal pulses, and sensitiveto 10 gm monofilament ASSESSMENT/PLAN: 1. Hypothyroidism, unspecified type - ICD9: 244.9, ICD10: E03.9 (primary diagnosis) - check labs. - TSH BLD - T4/FTI/T4U 2. Essential hypertension, benign - ICD9: 401.1, ICD10: I10 - good control - Continue current medication(s) - Goal of BP <130/80 - LISINOPRIL 20 MG TABLET 3. Type 2 diabetes mellitus without complication, without long-term current use of insulin (HCC) - ICD9: 250.00, ICD10: E11.9 poorly controlled - follow with endo. Recommended watching his diet. Reinforced importance of better control. - METFORMIN ER 500 MG TABLET,EXTENDED RELEASE 24 HR Kb Lackey MD RTO in six months documented in this encounterRegency [facility]09-13-2022 History of Past illness Narrative* Problem Noted Date Diagnosed Date Resolved Date Acute hyperglycemia 12/18/2021 12/24/19 23 Dehydration 12/18/2021 12/23/2022 Diabetes mellitus 12/18/2021 12/23/2022 Acute kidney injury 12/18/2021 12/24/19 23 Blood in stool 07/07/2015 04/25/2016 Dementia 03/20/2009 05/05/2017 Overview: Was listed by Dr. Gilbert. Has had no issues since. Major depressive disorder, r ecurrent, moderate 01/26/2008 12/23/2022 INGUINAL HERNIA, UNILATERAL W/O GANGRENE/OBSTRUCTION 01/05/2007 10/06/2009 documented as of this encounter (statuses as of 12/23/2022) [facility] History of Past illness Narrative* Problem Noted Date Diagnosed Date Resolved Date Acute hyperglycemia 12/18/2021 12/24/19 23 Dehydration 12/18/2021 12/23/2022 Diabetes mellitus 12/18/2021 12/23/2022 Acute kidney injury 12/18/2021 12/24/19 23 Blood in stool 07/07/2015 04/25/2016 Dementia 03/20/2009 05/05/2017 Overview: Was listed by Dr. Gilbert. Has had no issues since. Major depressive disorder, r ecurrent, moderate 01/26/2008 12/23/2022 INGUINAL HERNIA, UNILATERAL W/O GANGRENE/OBSTRUCTION 01/05/2007 10/06/2009 documented as of this encounter (statuses as of 12/24/2022) [facility] History of Past illness Narrative* Problem Noted Date Diagnosed Date Resolved Date Acute hyperglycemia 12/18/2021 12/24/19 23 Dehydration 12/18/2021 12/23/2022 Diabetes mellitus 12/18/2021 12/23/2022 Acute kidney injury 12/18/2021 12/24/19 23 Blood in stool 07/07/2015 04/25/2016 Dementia 03/20/2009 05/05/2017 Overview: Was listed by Dr. Gilbert. Has had no issues since. Major depressive disorder, r ecurrent, moderate 01/26/2008 12/23/2022 INGUINAL HERNIA, UNILATERAL W/O GANGRENE/OBSTRUCTION 01/05/2007 10/06/2009 documented as of this encounter (statuses as of 01/11/2023) [facility] History of Past illness Narrative* Problem Noted Date Diagnosed Date Resolved Date Acute hyperglycemia 12/18/2021 12/24/19 23 Dehydration 12/18/2021 12/23/2022 Diabetes mellitus 12/18/2021 12/23/2022 Acute kidney injury 12/18/2021 12/24/19 23 Blood in stool 07/07/2015 04/25/2016 Dementia 03/20/2009 05/05/2017 Overview: Was listed by Dr. Gilbert. Has had no issues since. Major depressive disorder, r ecurrent, moderate 01/26/2008 12/23/2022 INGUINAL HERNIA, UNILATERAL W/O GANGRENE/OBSTRUCTION 01/05/2007 10/06/2009 documented as of this encounter (statuses as of 01/29/2023) [facility] History of Past illness Narrative* Problem Noted Date Diagnosed Date Resolved Date Acute hyperglycemia 12/18/2021 12/24/19 23 Dehydration 12/18/2021 12/23/2022 Diabetes mellitus 12/18/2021 12/23/2022 Acute kidney injury 12/18/2021 12/24/19 23 Blood in stool 07/07/2015 04/25/2016 Dementia 03/20/2009 05/05/2017 Overview: Was listed by Dr. Gilbert. Has had no issues since. Major depressive disorder, r ecurrent, moderate 01/26/2008 12/23/2022 INGUINAL HERNIA, UNILATERAL W/O GANGRENE/OBSTRUCTION 01/05/2007 10/06/2009 documented as of this encounter (statuses as of 03/04/2023) [facility] of Past illness Narrative* Problem Noted Date Diagnosed Date Resolved Date Acute hyperglycemia 12/18/2021 12/24/19 23 Dehydration 12/18/2021 12/23/2022 Diabetes mellitus 12/18/2021 12/23/2022 Acute kidney injury 12/18/2021 12/24/19 23 Blood in stool 07/07/2015 04/25/2016 Dementia 03/20/2009 05/05/2017 Overview: Was listed by Dr. Gilbert. Has had no issues since. Major depressive disorder, r ecurrent, moderate 01/26/2008 12/23/2022 INGUINAL HERNIA, UNILATERAL W/O GANGRENE/OBSTRUCTION 01/05/2007 10/06/2009 documented as of this encounter (statuses as of 06/11/2023) [facility] of Past illness Narrative* Problem Noted Date Diagnosed Date Resolved Date Acute hyperglycemia 12/18/2021 12/24/19 23 Dehydration 12/18/2021 12/23/2022 Diabetes mellitus 12/18/2021 12/23/2022 Acute kidney injury 12/18/2021 12/24/19 23 Blood in stool 07/07/2015 04/25/2016 Dementia 03/20/2009 05/05/2017 Overview: Was listed by Dr. Gilbert. Has had no issues since. Major depressive disorder, r ecurrent, moderate 01/26/2008 12/23/2022 INGUINAL HERNIA, UNILATERAL W/O GANGRENE/OBSTRUCTION 01/05/2007 10/06/2009 documented as of this encounter (statuses as of 06/26/2023) [facility] of Past illness Narrative* Problem Noted Date Diagnosed Date Resolved Date Acute hyperglycemia 12/18/2021 12/24/19 23 Dehydration 12/18/2021 12/23/2022 Diabetes mellitus 12/18/2021 12/23/2022 Acute kidney injury 12/18/2021 12/24/19 23 Blood in stool 07/07/2015 04/25/2016 Dementia 03/20/2009 05/05/2017 Overview: Was listed by Dr. Gilbert. Has had no issues since. Major depressive disorder, r ecurrent, moderate 01/26/2008 12/23/2022 INGUINAL HERNIA, UNILATERAL W/O GANGRENE/OBSTRUCTION 01/05/2007 10/06/2009 documented as of this encounter (statuses as of 06/27/2023) [facility] History of Past illness Narrative* Problem Noted Date Diagnosed Date Resolved Date Acute hyperglycemia 12/18/2021 12/24/19 23 Dehydration 12/18/2021 12/23/2022 Diabetes mellitus 12/18/2021 12/23/2022 Acute kidney injury 12/18/2021 12/24/19 23 Blood in stool 07/07/2015 04/25/2016 Dementia 03/20/2009 05/05/2017 Overview: Was listed by Dr. Gilbert. Has had no issues since. Major depressive disorder, r ecurrent, moderate 01/26/2008 12/23/2022 INGUINAL HERNIA, UNILATERAL W/O GANGRENE/OBSTRUCTION 01/05/2007 10/06/2009 documented as of this encounter (statuses as of 07/25/2023) [facility] History of Past illness Narrative* Problem Noted Date Diagnosed Date Resolved Date Acute hyperglycemia 12/18/2021 12/24/19 23 Dehydration 12/18/2021 12/23/2022 Diabetes mellitus 12/18/2021 12/23/2022 Acute kidney injury 12/18/2021 12/24/19 23 Blood in stool 07/07/2015 04/25/2016 Dementia 03/20/2009 05/05/2017 Overview: Was listed by Dr. Gilbert. Has had no issues since. Major depressive disorder, r ecurrent, moderate 01/26/2008 12/23/2022 INGUINAL HERNIA, UNILATERAL W/O GANGRENE/OBSTRUCTION 01/05/2007 10/06/2009 documented as of this encounter (statuses as of 07/26/2023) [facility] History of Present illness Narrative* Maribell Titus RN - 12/13/2021 4:05 PM EDT Images from the original note were not included. [facility] Enrollment Provider Action/FYI: Enrolled in [employer] with [facility] introduction [phone] Appointments for Next 60 Days Date Time Provider Location Dept Phone 12/13/2021 9:00 AM LAB [facility] [phone] 12/18/2021 4:00 PM KB LACKEY [facility] [phone] Patient referred by: [facility] Jaky Contact made with patient: Yes - Patient identified by name and . Discussed care with spouse Demarcus this is Maribell Titus RN and I am calling from Kb Lackey MD office at the [facility]. I am a RN Electronics Specialist with our [employer] Chronic Disease Management program. Kb Lackey MD wanted me to reach out to help you manage your health at home. Our goal is to keep you well at home. We want to help you manage your chronic disease by providing a safety net of resources around you, getting you the care you need in a timely manner, and hopefully keep you out of the ED and hospital. I will send you a few questions once a week through your [employer] account. It will automaticallyshow up for you to complete. There are simple questions that will help us identify if you have any concerns or symptoms and I will call you to help get what you need. We will be able to connect you, review your symptoms, do an on demand visit, or communicate with Kb Lackey MD if needed. I am going to sign you up for the program now. Enrollment Questions: Let's get you enrolled in the program. Yes, Do you have regular access to a computer/smartphone? No, Are you offering patient a biweekly phone call? yes/no: Yes. Goal Setting: I would like to take some time today to discuss your personal health goals. Yes, patient has goals. Capture the goal the patient wants to accomplish: Active Goals - Current status as of 12/13/2021 at 4:16 PM Patient Stated Better DM management (pt-stated) Hemoglobin A1C (%) Date Value 05/02/2021 11.5 05/04/2020 7.1 11/22/2019 6.2 08/31/2019 9.6 10/27/2017 5.9 . Does the goal align with programs offered at the [facility]? No Patient accepts telephonic outreach Thank you for your time today. I am excited to work together in managing your health! I will check back within in two weeks to see how things are going. If questions or concerns arise betweenphone calls, please reach out to your PCP s office. (Place in active status for inSight and place na me in care team and update next patient outreach data to next business day two weeks from today s date) Most people know what to do to become healthier, yet struggle to put it into action on their own.Itcan be hard to maintain a healthy lifestyle, especially when life is so stressful. Can we connect you with a [facility] Health Staff Nurse Anesthetist to find a program that could help you meet your goals? No Closing: Patient accepts telephonic outreach Thank you for your time today. I am excited to work together inmanaging your health! I will check back within in two weeks to see how things are going. If questions or concerns arise between phone calls, please reach out to your PCP s office. (Place in active status for inSight and place name in care team and update next patient outreach data to next business d ay two weeks from today s date) [facility] History of Present illness Narrative* Maribell Titus RN - 01/11/2022 9:18 AM EDT [facility] TELEPHONIC OUTREACH Provider Action/FYI: Has not started new insulin regimine yet(OSH ENDO A1C 12.1% ) - discussed relation of diet with insulin. Reminded about [facility] [phone] . Follow up from / since previous inSight Telephonic Outreach: PCP Kb Lackey MD 6 month(s) follow up visit Contact made with patient: Yes Patient identified by name and . Discussed care with spouse It s nice talking to you again. As a reminder, this is our bi-weekly check-in where I will be asking you questions about your health. This will only take a few minutes of your time. Is this a good time? Yes Symptoms What Chronic Disease(s) does the patient have: CKD Do you check your blood pressures at home? Yes, Enter readings: no concerns Do you have new or worse shortness of breath with activity? No Do you feel like you are dehydrated for any reason, including not being able to eat or drink normally, or having less urine/much darker urine than normal for you? No Do you check your daily weight at home? Yes, Have you noticed a sudden gain in weight greater than three pounds in a day or three pounds in a week? No Are you having any other symptoms that your PCP needs to know about? No Symptom Escalation The patient required an escalation for symptom(s)? No Medications Do you have any questions about taking your medication or which medications you should be on? No Do you need any medication refills at this time, including any of the medications you might take only when needed? No Social We would like to make sure you have what you need so that your basic needs are met- including your personal safety, food, housing and medications? Would you like to speak with a social work manufacturing team member to help give you support for any of these needs? No It can be normal to feel anxious or down during a time like this. Would you like to talk to a mental health professional about how you have been feeling? No Closing Thank you for taking the time to talk with me today. We want to work with you to ensure that we arekeeping your medical condition(s) well-controlled and to keep you healthy and out of the doctor's office or hospital. It s also not too late for me to sign you up for automated weekly questionnaires through [employer]. This is an easy way for us to stay connected each week. Are you interested? No, I understand. We can always sign you up in the future if you change your mind. Just as a reminder, will continue to call you every other week to check in on your health. Our calls should take 10-15 minutes or less. Remember, if you have concerns in between our calls, please call your PCP's office right away. Thank you. Enter next patient outreach date for two weeks on the same day of the week as today in the Track PtOutreach and End outreach. [facility] History of Past illness Narrative* Problem Noted Date Resolved Date Blood in stool 07/07/2015 04/25/2016 Dementia 03/20/2009 05/05/2017 Overview: Was listed by Dr. Gilbert. Has had no issues since. Major depressive disorder, recurrent episode, mo derate 01/26/2008 05/06/2019 INGUINAL HERNIA, UNILATERAL W/O GANGRENE/OBSTRUC TION 01/05/2007 10/06/2009 documented as of this encounter (statuses as of 12/05/2021) [facility] History of Past illness Narrative* Problem Noted Date Resolved Date Blood in stool 07/07/2015 04/25/2016 Dementia 03/20/2009 05/05/2017 Overview: Was listed by Dr. Gilbert. Has had no issues since. Major depressive disorder, recurrent episode, mo derate 01/26/2008 05/06/2019 INGUINAL HERNIA, UNILATERAL W/O GANGRENE/OBSTRUC TION 01/05/2007 10/06/2009 documented as of this encounter (statuses as of 12/13/2021) [facility] History of Past illness Narrative* Problem Noted Date Resolved Date Blood in stool 07/07/2015 04/25/2016 Dementia 03/20/2009 05/05/2017 Overview: Was listed by Dr. Gilbert. Has had no issues since. Major depressive disorder, recurrent episode, mo derate 01/26/2008 05/06/2019 INGUINAL HERNIA, UNILATERAL W/O GANGRENE/OBSTRUC TION 01/05/2007 10/06/2009 documented as of this encounter (statuses as of 12/18/2021) [facility] History of Past illness Narrative* Problem Noted Date Resolved Date Blood in stool 07/07/2015 04/25/2016 Dementia 03/20/2009 05/05/2017 Overview: Was listed by Dr. Gilbert. Has had no issues since. Major depressive disorder, recurrent episode, mo derate 01/26/2008 05/06/2019 INGUINAL HERNIA, UNILATERAL W/O GANGRENE/OBSTRUC TION 01/05/2007 10/06/2009 documented as of this encounter (statuses as of 12/19/2021) [facility] History of Past illness Narrative* Problem Noted Date Resolved Date Blood in stool 07/07/2015 04/25/2016 Dementia 03/20/2009 05/05/2017 Overview: Was listed by Dr. Gilbert. Has had no issues since. Major depressive disorder, recurrent episode, mo derate 01/26/2008 05/06/2019 INGUINAL HERNIA, UNILATERAL W/O GANGRENE/OBSTRUC TION 01/05/2007 10/06/2009 documented as of this encounter (statuses as of 01/02/2022) [facility] History of Past illness Narrative* Problem Noted Date Resolved Date Blood in stool 07/07/2015 04/25/2016 Dementia 03/20/2009 05/05/2017 Overview: Was listed by Dr. Gilbert. Has had no issues since. Major depressive disorder, recurrent episode, mo derate 01/26/2008 05/06/2019 INGUINAL HERNIA, UNILATERAL W/O GANGRENE/OBSTRUC TION 01/05/2007 10/06/2009 documented as of this encounter (statuses as of 01/14/2022) [facility] History of Past illness Narrative* Problem Noted Date Resolved Date Blood in stool 07/07/2015 04/25/2016 Dementia 03/20/2009 05/05/2017 Overview: Was listed by Dr. Gilbert. Has had no issues since. Major depressive disorder, recurrent episode, mo derate 01/26/2008 05/06/2019 INGUINAL HERNIA, UNILATERAL W/O GANGRENE/OBSTRUC TION 01/05/2007 10/06/2009 documented as of this encounter (statuses as of 02/05/2022) [facility] of Past illness Narrative* Problem Noted Date Resolved Date Blood in stool 07/07/2015 04/25/2016 Dementia 03/20/2009 05/05/2017 Overview: Was listed by Dr. Gilbert. Has had no issues since. Major depressive disorder, recurrent episode, mo derate 01/26/2008 05/06/2019 INGUINAL HERNIA, UNILATERAL W/O GANGRENE/OBSTRUC TION 01/05/2007 10/06/2009 documented as of this encounter (statuses as of 02/07/2022) [facility] of Past illness Narrative* Problem Noted Date Resolved Date Blood in stool 07/07/2015 04/25/2016 Dementia 03/20/2009 05/05/2017 Overview: Was listed by Dr. Gilbert. Has had no issues since. Major depressive disorder, recurrent episode, mo derate 01/26/2008 05/06/2019 INGUINAL HERNIA, UNILATERAL W/O GANGRENE/OBSTRUC TION 01/05/2007 10/06/2009 documented as of this encounter (statuses as of 03/12/2022) [facility] of Past illness Narrative* Problem Noted Date Resolved Date Blood in stool 07/07/2015 04/25/2016 Dementia 03/20/2009 05/05/2017 Overview: Was listed by Dr. Gilbert. Has had no issues since. Major depressive disorder, recurrent episode, mo derate 01/26/2008 05/06/2019 INGUINAL HERNIA, UNILATERAL W/O GANGRENE/OBSTRUC TION 01/05/2007 10/06/2009 documented as of this encounter (statuses as of 04/12/2022) [facility] of Past illness Narrative* Problem Noted Date Resolved Date Blood in stool 07/07/2015 04/25/2016 Dementia 03/20/2009 05/05/2017 Overview: Was listed by Dr. Gilbert. Has had no issues since. Major depressive disorder, recurrent episode, mo derate 01/26/2008 05/06/2019 INGUINAL HERNIA, UNILATERAL W/O GANGRENE/OBSTRUC TION 01/05/2007 10/06/2009 documented as of this encounter (statuses as of 04/25/2022) [facility] History of Past illness Narrative* Problem Noted Date Resolved Date Blood in stool 07/07/2015 04/25/2016 Dementia 03/20/2009 05/05/2017 Overview: Was listed by Dr. Gilbert. Has had no issues since. Major depressive disorder, recurrent episode, mo derate 01/26/2008 05/06/2019 INGUINAL HERNIA, UNILATERAL W/O GANGRENE/OBSTRUC TION 01/05/2007 10/06/2009 documented as of this encounter (statuses as of 05/09/2022) [facility] of Past illness Narrative* Problem Noted Date Resolved Date Blood in stool 07/07/2015 04/25/2016 Dementia 03/20/2009 05/05/2017 Overview: Was listed by Dr. Gilbert. Has had no issues since. Major depressive disorder, recurrent episode, mo derate 01/26/2008 05/06/2019 INGUINAL HERNIA, UNILATERAL W/O GANGRENE/OBSTRUC TION 01/05/2007 10/06/2009 documented as of this encounter (statuses as of 06/06/2022) [facility] of Past illness Narrative* Problem Noted Date Resolved Date Blood in stool 07/07/2015 04/25/2016 Dementia 03/20/2009 05/05/2017 Overview: Was listed by Dr. Gilbert. Has had no issues since. Major depressive disorder, recurrent episode, mo derate 01/26/2008 05/06/2019 INGUINAL HERNIA, UNILATERAL W/O GANGRENE/OBSTRUC TION 01/05/2007 10/06/2009 documented as of this encounter (statuses as of 06/11/2022) [facility] of Past illness Narrative* Problem Noted Date Resolved Date Blood in stool 07/07/2015 04/25/2016 Dementia 03/20/2009 05/05/2017 Overview: Was listed by Dr. Gilbert. Has had no issues since. Major depressive disorder, recurrent episode, mo derate 01/26/2008 05/06/2019 INGUINAL HERNIA, UNILATERAL W/O GANGRENE/OBSTRUC TION 01/05/2007 10/06/2009 documented as of this encounter (statuses as of 06/12/2022) [facility] of Past illness Narrative* Problem Noted Date Resolved Date Blood in stool 07/07/2015 04/25/2016 Dementia 03/20/2009 05/05/2017 Overview: Was listed by Dr. Gilbert. Has had no issues since. Major depressive disorder, recurrent episode, mo derate 01/26/2008 05/06/2019 INGUINAL HERNIA, UNILATERAL W/O GANGRENE/OBSTRUC TION 01/05/2007 10/06/2009 documented as of this encounter (statuses as of 06/17/2022) [facility] of Past illness Narrative* Problem Noted Date Resolved Date Blood in stool 07/07/2015 04/25/2016 Dementia 03/20/2009 05/05/2017 Overview: Was listed by Dr. Gilbert. Has had no issues since. Major depressive disorder, recurrent episode, mo derate 01/26/2008 05/06/2019 INGUINAL HERNIA, UNILATERAL W/O GANGRENE/OBSTRUC TION 01/05/2007 10/06/2009 documented as of this encounter (statuses as of 06/27/2022) [facility] of Past illness Narrative* Problem Noted Date Resolved Date Blood in stool 07/07/2015 04/25/2016 Dementia 03/20/2009 05/05/2017 Overview: Was listed by Dr. Gilbert. Has had no issues since. Major depressive disorder, recurrent episode, mo derate 01/26/2008 05/06/2019 INGUINAL HERNIA, UNILATERAL W/O GANGRENE/OBSTRUC TION 01/05/2007 10/06/2009 documented as of this encounter (statuses as of 07/03/2022) [facility] of Past illness Narrative* Problem Noted Date Resolved Date Blood in stool 07/07/2015 04/25/2016 Dementia 03/20/2009 05/05/2017 Overview: Was listed by Dr. Gilbert. Has had no issues since. Major depressive disorder, recurrent episode, mo derate 01/26/2008 05/06/2019 INGUINAL HERNIA, UNILATERAL W/O GANGRENE/OBSTRUC TION 01/05/2007 10/06/2009 documented as of this encounter (statuses as of 07/18/2022) [facility] History of Past illness Narrative* Problem Noted Date Resolved Date Blood in stool 07/07/2015 04/25/2016 Dementia 03/20/2009 05/05/2017 Overview: Was listed by Dr. Gilbert. Has had no issues since. Major depressive disorder, recurrent episode, mo derate 01/26/2008 05/06/2019 INGUINAL HERNIA, UNILATERAL W/O GANGRENE/OBSTRUC TION 01/05/2007 10/06/2009 documented as of this encounter (statuses as of 07/19/2022) [facility] of Past illness Narrative* Problem Noted Date Resolved Date Blood in stool 07/07/2015 04/25/2016 Dementia 03/20/2009 05/05/2017 Overview: Was listed by Dr. Gilbert. Has had no issues since. Major depressive disorder, recurrent episode, mo derate 01/26/2008 05/06/2019 INGUINAL HERNIA, UNILATERAL W/O GANGRENE/OBSTRUC TION 01/05/2007 10/06/2009 documented as of this encounter (statuses as of 07/26/2022) [facility] History of Past illness Narrative* Problem Noted Date Resolved Date Blood in stool 07/07/2015 04/25/2016 Dementia 03/20/2009 05/05/2017 Overview: Was listed by Dr. Gilbert. Has had no issues since. Major depressive disorder, recurrent episode, mo derate 01/26/2008 05/06/2019 INGUINAL HERNIA, UNILATERAL W/O GANGRENE/OBSTRUC TION 01/05/2007 10/06/2009 documented as of this encounter (statuses as of 09/21/2022) [facility] History of Past illness Narrative* Problem Noted Date Diagnosed Date Resolved Date Blood in stool 07/07/2015 04/25/2016 Dementia 03/20/2009 05/05/2017 Overview: Was listed by Dr. Gilbert. Has had no issues since. Major depressive disorder, r ecurrent episode, moderate 01/26/2008 05/06/2019 INGUINAL HERNIA, UNILATERAL W/O GANGRENE/OBSTRUCTION 01/05/2007 10/06/2009 documented as of this encounter (statuses as of 10/18/2022) [facility] History of Past illness Narrative* Problem Noted Date Diagnosed Date Resolved Date Blood in stool 07/07/2015 04/25/2016 Dementia 03/20/2009 05/05/2017 Overview: Was listed by Dr. Gilbert. Has had no issues since. Major depressive disorder, r ecurrent episode, moderate 01/26/2008 05/06/2019 INGUINAL HERNIA, UNILATERAL W/O GANGRENE/OBSTRUCTION 01/05/2007 10/06/2009 documented as of this encounter (statuses as of 11/15/2022) [facility] History of Past illness Narrative* Problem Noted Date Diagnosed Date Resolved Date Blood in stool 07/07/2015 04/25/2016 Dementia 03/20/2009 05/05/2017 Overview: Was listed by Dr. Gilbert. Has had no issues since. Major depressive disorder, r ecurrent episode, moderate 01/26/2008 05/06/2019 INGUINAL HERNIA, UNILATERAL W/O GANGRENE/OBSTRUCTION 01/05/2007 10/06/2009 documented as of this encounter (statuses as of 12/13/2022) [facility] History of Past illness Narrative* Problem Noted Date Diagnosed Date Resolved Date Blood in stool 07/07/2015 04/25/2016 Dementia 03/20/2009 05/05/2017 Overview: Was listed by Dr. Gilbert. Has had no issues since. Major depressive disorder, r ecurrent episode, moderate 01/26/2008 05/06/2019 INGUINAL HERNIA, UNILATERAL W/O GANGRENE/OBSTRUCTION 01/05/2007 10/06/2009 documented as of this encounter (statuses as of 12/14/2022) [facility] Buenrostro [facility] June 07, 2022 4:29pm Note Date/Time June 07, 2022 4:21 pm [facility] Medical Records Department [address] [place] [address] Instructions for Home/Discharge Instructions 06/07/22 1613 MR#: [id number] Acct: [id number] Name: JEAN-CLAUDE DOUGLAS Rep #:[id number] : [id number] From: Dennys Buenrostro DO PCP: Dr. Kb Lackey MD Status:ADM I N Discharge Instructions Diet Discharge Diet: 1800 Calorie Control Diet Activity Discharge Activity: Return to Normal Activity Weight Bearing Status: Full weight bearing (with walker if needed) Follow Up Care Test Results: Test results from this visit will be discussed in further detail at your follow- up appointment, if applicable. Discharge Plan Admission Admit Date/Time: 06/05/22 22:12 Primary Reason for Your Visit: sepsis, cystitis Attending Provider: Dennys Buenrostro Primary Care Provider: Kb Lackey Consulting Providers: Mk Davis Discharge Orders/Prescriptions Prescriptions: New cephalexin 500 mg capsule 500 mg PO Q12H Qty: 10 0RF Rx Instructions: start on 06/08/22 Continued cholecalciferol (vitamin D3) 25 mcg (1,000 unit) capsule 25 mcg PO DAILY glimepiride 2 mg tablet 2 mg PO BID Qty: 180 3RF metformin 500 mg tablet extended release 24 hr 1,000 mg PO BID Qty: 360 3RF lisinopril 20 mg tablet 20 mg PO DAILY cyanocobalamin (vitamin B-12) 500 MCG tablet 1,000 mcg PO DAILY@0800 Levothyroxine 137 mcg PO DAILY ferrous sulfate 325 MG tablet 325 mg PO DAILY (DME) lancets-blood glucose strips 1 EACH combo pack 1 each MC BID Qty: 1 1RF insulin aspart U-100 [Novolog FlexPen U-100 Insulin] 100 unit/mL (3 mL) Insulin Pen 10 unit SUBCUT DINNER insulin aspart U-100 [Novolog FlexPen U-100 Insulin] 100 unit/mL (3 mL) Insulin Pen 16 unit SUBCUT BREAKFAST (DME) pen needle, diabetic, safety 30 gauge x 1/3 needle 1 ea MISCELL. UD Qty: 100 6RF Rx Instructions: 3x/day Referrals / Follow Up: Kb Lackey MD [Primary Care Provider] - Within 2 Weeks Disposition Disposition (needs filled in before D/C Order can be placed): Home, Self Care 06/07/22 1629<Electronically signed by Dennys Buenrostro DO>Dennys Buenrostro DO CC: Dr. Mk Davis MD; Dr. Kb Lackey MD ~ Signed [facility] Work Phone: Evaluation note* Diagnosis CKD (chronic kidney disease) stage 1, GFR 90 ml/min or greater- Primary Chronic kidney disease, Stage I [facility]* Diagnosis Hypothyroidism, unspecified type- Primary Essential hypertension, benign Type 2 diabetes mellitus without complication, without long-term current use of insulin (HCC) documented in this encounter [facility] note* Diagnosis Hypothyroidism, unspecified type- Primary [facility]* Diagnosis Hypothyroidism, unspecified type documented in this encounter [facility] note* Diagnosis CKD (chronic kidney disease) stage 1, GFR 90 ml/min or greater- Primary Chronic kidney disease, Stage I documented in this encounter [facility] note* Diagnosis Type 2 diabetes mellitus without complication, without long-term current use of insulin ([facility]) [facility]* Diagnosis Onset Date Resolution Status Benign essential hypertension chronic Diabetes chronic Hypothyroidism (acquired) ch ronic Diabetes chronic Hypokalemia acute Mild dehydration acute Sepsis acute UTI (urinary tract infection) acute Diabetes chronic [facility] Work Phone: Evaluation note* Diagnosis Sepsis, due to unspecified organism, unspecified whether acute organ dysfunction present (HCC)- Primary Dehydration Essential hypertension, benign Hypothyroidism, unspecified type Type 2 diabetes mellitus without complication, without long-term current use of insulin ([facility]) documented in this encounter [facility] note* Diagnosis Diabetes mellitus (HCC) Type II or unspecified type diabetes mellitus without mention of complication, not stated as uncontrolled documented in this encounter [facility] note* Diagnosis Hypothyroidism, unspecified type documented in this encounter [facility] note* Diagnosis Type 2 diabetes mellitus without complication, without long-term current use of insulin (HCC)- Primary Essential hypertension, benign Chronic renal insufficiency, stage 3 (moderate) ([facility]) Vitamin B12 deficiency Other B-complex deficiencies Tremor Abnormal involuntary movements Vitamin D deficiency Unspecified vitamin D deficiency [facility]* Diagnosis Essential hypertension, benign- Primary [facility]* Diagnosis Essential hypertension, benign- Primary Tremor Abnormal involuntary movements Chronic renal insufficiency, stage 3 (moderate) (HCC) Type 2 diabetes mellitus without complication, without long-term current use of insulin (HCC) Hypothyroidism, unspecified type Vitamin D deficiency Unspecified vitamin D deficiency Iron deficiency anemia, unspecified iron deficiency anemia type Renal insufficiency Unspecified disorder of kidney and ureter [facility] Diagnosis Proteinuria, unspecified type- Primary Pyuria Other nonspecific finding on examination of urine [facility]* Diagnosis Recurrent UTI (urinary tract infection)- Primary Urinary tract infection, site not specified [facility]* Diagnosis Essential hypertension, benign [facility]* Diagnosis Essential hypertension, benign- Primary Vitamin B12 deficiency Other B-complex deficiencies Chronic renal insufficiency, stage 3 (moderate) ([facility]) Hypothyroidism, unspecified type Type 2 diabetes mellitus without complication, without long-term current use of insulin (HCC) Iron deficiency anemia, unspecified iron deficiency anemia type Vitamin D deficiency Unspecified vitamin D deficiency Encounter for immunization Need for other specified prophylactic vaccination against single bacterial disease [facility]* Diagnosis Vitamin B12 deficiency- Primary Other B-complex deficiencies Chronic renal insufficiency, stage 3 (moderate) ([facility]) Iron deficiency anemia, unspecified iron deficiency anemia type [facility]* Diagnosis Anemia, unspecified type- Primary Microscopic hematuria documented in this encounter [facility] note* Diagnosis Hypothyroidism, unspecified type documented in this encounter [facility] note* Diagnosis Essential hypertension, benign documented in this encounter [facility] Chief Complaint and Reason for Visit Chief Complaint 3 M FU 2 M FU SEPSIS SECONDARY TO UTI Reason for Visit Benign essential hyp ertension Diabetes Hypothyroidism (acquired) Diabetes Hypokalemia Mild dehydration Sepsis UTI (urinary tract infection) Diabetes Chief Complaint 3 M FU 2 M FU SEPSIS SECONDARY TO UTI SEPSIS SECONDARY TO UTI SEPSIS SECONDARY TO UTI Reason for Visit Benign essential hyp ertension Diabetes Hypothyroidism (acquired) Diabetes Hypokalemia Mild dehydration Sepsis UTI (urinary tract infection) Diabetes Chief Complaint Admit Date UTI, CHANTALE, INTERMITTENT HYPOGLYCEMIA AND July 26, 2024 8:05pm UTI, CHANTALE, INTERMITTENT HYPOGLYCEMIA AND July 27, 2024 3:40pm UTI, CHANTALE, INTERMITTENT HYPOGLYCEMIA AND July 28, 2024 2:06pm 6 wk FU August 03, 2024 1:2 2pm 3 M FU November 22, 2024 1: 22pm Reason for Visit Admit Date Acute cystitis with hematuria July 8:05pm Acute metabolic encephalopathy July 8:05pm Adverse drug reaction July 26, 2024 8 :05pm CHANTALE (acute kidney injury) July 26 8:05pm Hypoglycemia associated with type 2 diab etes mellitus July 26, 2024 8:05pm Benign essential hypertension July 1:22pm Dementia August 03, 2024 1:2 2pm Diabetes August 03, 2024 1:2 2pm Hypothyroidism (acquired) August 03 1:22pm Benign essential hypertension November 1:22pm Dementia November 22, 2024 1: 22pm Diabetes November 22, 2024 1: 22pm Hypothyroidism (acquired) November 22 1:22pm Advance Directives No Advanced Directives Records Found Advance Directive Response Recorded Date/ Time Name of Medical Power of Consumer Marketing Manager SCARLET STELLA June 05, 2022 6:41pm Living Will Yes June 05, 2022 6:41pm Power of Consumer Marketing Manager Yes June 05 6:41pm Advance Directive Response Recorded Date/ Time Name of Medical Power of Consumer Marketing Manager Scarlet Lucio Mohinder resendiz June 05, 2022 11:19pm Living Will Yes June 05, 2022 11:19pm Power of Consumer Marketing Manager Yes June 05 11:19pm Advance Directive Response Recorded Date/ Time Living Will Yes July 26, 2024 9:05pm Do you have a Healthcare Power of Consumer Marketing Manager? Yes July 26, 2024 9:05pm Name of Medical Power of Consumer Marketing Manager . July 26, 2024 9:05pm Reason for Referral Specialty Diagnoses / Procedures Referred By Contac t Referred To Contact Infectious Diseases Diagnoses Recurrent UTI (urinary tract infection) Procedures CONSULT TO INFECTIOUS DISEASES OFFICE/OUTPATIENT [facility] 60 MINUTES Jeni Graham, [email or web address] [address] [place] [address] Referral ID Status Reason Start Date Expiration Date Visits Requested Visits Authorized [id number] Authorized PCP Requested Referral 08/25/2023 08/24/2024 1 1 Summary Purpose Family History No Family History Records Found Additional Source Comments Source Comments (unrecognize d section and content) In the event this informatio n is protected by the Federal Confidentiality of Alcohol and Drug Abuse Patient Records regulations: The Federal rules restrict any use of the information to criminally investigate or prosecute any alcohol or drug abuse patient.[facility] the event this information is protected by the Federal Confidentiality of Alcohol and Drug Abuse Patient Records regulations: The Federal rules restrict any use of the information to criminally investigate or prosecute any alcohol or drug abuse patient.[facility]In the event this information is protected by the Federal Confidentiality of Alcohol and Drug Abuse Patient Records regulations: The Federal rules restrict any use of the information to criminally investigate or prosecute any alcohol or drug abuse patient.[facility] WestIn the event this information is protected by the Federal Confidentiality of Alcohol and Drug Abuse Patient Records regulations: The Federal rules restrict any use of the information to criminally investigate or prosecute any alcohol or drug abuse patient.[facility]In the event this information is protected by the Federal Confidentiality of Alcohol and Drug Abuse Patient Records regulations: The Federal rules restrict any use of the information to criminally investigate or prosecute any alcohol or drug abuse patient.[facility] WestIn the event this information is protected by the Federal Confidentiality of Alcohol and Drug Abuse Patient Records regulations: The Federal rules restrict any use of the information to criminally investigate or prosecute any alcohol or drug abuse patient.[facility] WestIn the event this information is protected by the Federal Confidentiality of Alcohol and Drug Abuse Patient Records regulations: The Federal rules restrict any use of the information to criminally investigate or prosecute any alcohol or drug abuse patient.[facility] WestIn the event this information is protected by the Federal Confidentiality of Alcohol and Drug Abuse Patient Records regulations: The Federal rules restrict any use of the information to criminally investigate or prosecute any alcohol or drug abuse patient.[facility]In the event this information is protected by the Federal Confidentiality of Alcohol and Drug Abuse Patient Records regulations: The Federal rules restrict any use of the information to criminally investigate or prosecute any alcohol or drug abuse patient.[facility] WestIn the event this information is protected by the Federal Confidentiality of Alcohol and Drug Abuse Patient Records regulations: The Federal rules restrict any use of the information to criminally investigate or prosecute any alcohol or drug abuse patient.[facility] WestIn the event this information is protected by the Federal Confidentiality of Alcohol and Drug Abuse Patient Records regulations: The Federal rules restrict any use of the information to criminally investigate or prosecute any alcohol or drug abuse patient.[facility] WestIn the event this information is protected by the Federal Confidentiality of Alcohol and Drug Abuse Patient Records regulations: The Federal rules restrict any use of the information to criminally investigate or prosecute any alcohol or drug abuse patient.[facility] WestIn the event this information is protected by the Federal Confidentiality of Alcohol and Drug Abuse Patient Records regulations: The Federal rules restrict any use of the information to criminally investigate or prosecute any alcohol or drug abuse patient.[facility] WestIn the event this information is protected by the Federal Confidentiality of Alcohol and Drug Abuse Patient Records regulations: The Federal rules restrict any use of the information to criminally investigate or prosecute any alcohol or drug abuse patient.[facility] WestIn the event this information is protected by the Federal Confidentiality of Alcohol and Drug Abuse Patient Records regulations: The Federal rules restrict any use of the information to criminally investigate or prosecute any alcohol or drug abuse patient.[facility] WestIn the event this information is protected by the Federal Confidentiality of Alcohol and Drug Abuse Patient Records regulations: The Federal rules restrict any use of the information to criminally investigate or prosecute any alcohol or drug abuse patient.[facility] WestIn the event this information is protected by the Federal Confidentiality of Alcohol and Drug Abuse Patient Records regulations: The Federal rules restrict any use of the information to criminally investigate or prosecute any alcohol or drug abuse patient.[facility] WestIn the event this information is protected by the Federal Confidentiality of Alcohol and Drug Abuse Patient Records regulations: The Federal rules restrict any use of the information to criminally investigate or prosecute any alcohol or drug abuse patient.[facility] WestIn the event this information is protected by the Federal Confidentiality of Alcohol and Drug Abuse Patient Records regulations: The Federal rules restrict any use of the information to criminally investigate or prosecute any alcohol or drug abuse patient.[facility] WestIn the event this information is protected by the Federal Confidentiality of Alcohol and Drug Abuse Patient Records regulations: The Federal rules restrict any use of the information to criminally investigate or prosecute any alcohol or drug abuse patient.[facility] WestIn the event this information is protected by the Federal Confidentiality of Alcohol and Drug Abuse Patient Records regulations: The Federal rules restrict any use of the information to criminally investigate or prosecute any alcohol or drug abuse patient.[facility] WestIn the event this information is protected by the Federal Confidentiality of Alcohol and Drug Abuse Patient Records regulations: The Federal rules restrict any use of the information to criminally investigate or prosecute any alcohol or drug abuse patient.[facility] WestIn the event this information is protected by the Federal Confidentiality of Alcohol and Drug Abuse Patient Records regulations: The Federal rules restrict any use of the information to criminally investigate or prosecute any alcohol or drug abuse patient.[facility] WestIn the event this information is protected by the Federal Confidentiality of Alcohol and Drug Abuse Patient Records regulations: The Federal rules restrict any use of the information to criminally investigate or prosecute any alcohol or drug abuse patient.[facility] WestIn the event this information is protected by the Federal Confidentiality of Alcohol and Drug Abuse Patient Records regulations: The Federal rules restrict any use of the information to criminally investigate or prosecute any alcohol or drug abuse patient.[facility] WestIn the event this information is protected by the Federal Confidentiality of Alcohol and Drug Abuse Patient Records regulations: The Federal rules restrict any use of the information to criminally investigate or prosecute any alcohol or drug abuse patient.[facility] WestIn the event this information is protected by the Federal Confidentiality of Alcohol and Drug Abuse Patient Records regulations: The Federal rules restrict any use of the information to criminally investigate or prosecute any alcohol or drug abuse patient.[facility] WestIn the event this information is protected by the Federal Confidentiality of Alcohol and Drug Abuse Patient Records regulations: The Federal rules restrict any use of the information to criminally investigate or prosecute any alcohol or drug abuse patient.[facility] WestIn the event this information is protected by the Federal Confidentiality of Alcohol and Drug Abuse Patient Records regulations: The Federal rules restrict any use of the information to criminally investigate or prosecute any alcohol or drug abuse patient.[facility] WestIn the event this information is protected by the Federal Confidentiality of Alcohol and Drug Abuse Patient Records regulations: The Federal rules restrict any use of the information to criminally investigate or prosecute any alcohol or drug abuse patient.[facility] WestIn the event this information is protected by the Federal Confidentiality of Alcohol and Drug Abuse Patient Records regulations: The Federal rules restrict any use of the information to criminally investigate or prosecute any alcohol or drug abuse patient.[facility] WestIn the event this information is protected by the Federal Confidentiality of Alcohol and Drug Abuse Patient Records regulations: The Federal rules restrict any use of the information to criminally investigate or prosecute any alcohol or drug abuse patient.[facility] WestIn the event this information is protected by the Federal Confidentiality of Alcohol and Drug Abuse Patient Records regulations: The Federal rules restrict any use of the information to criminally investigate or prosecute any alcohol or drug abuse patient.[facility] WestIn the event this information is protected by the Federal Confidentiality of Alcohol and Drug Abuse Patient Records regulations: The Federal rules restrict any use of the information to criminally investigate or prosecute any alcohol or drug abuse patient.[facility] WestIn the event this information is protected by the Federal Confidentiality of Alcohol and Drug Abuse Patient Records regulations: The Federal rules restrict any use of the information to criminally investigate or prosecute any alcohol or drug abuse patient.[facility] WestIn the event this information is protected by the Federal Confidentiality of Alcohol and Drug Abuse Patient Records regulations: The Federal rules restrict any use of the information to criminally investigate or prosecute any alcohol or drug abuse patient.[facility] WestIn the event this information is protected by the Federal Confidentiality of Alcohol and Drug Abuse Patient Records regulations: The Federal rules restrict any use of the information to criminally investigate or prosecute any alcohol or drug abuse patient.[facility] WestIn the event this information is protected by the Federal Confidentiality of Alcohol and Drug Abuse Patient Records regulations: The Federal rules restrict any use of the information to criminally investigate or prosecute any alcohol or drug abuse patient.[facility] WestIn the event this information is protected by the Federal Confidentiality of Alcohol and Drug Abuse Patient Records regulations: The Federal rules restrict any use of the information to criminally investigate or prosecute any alcohol or drug abuse patient.[facility] WestIn the event this information is protected by the Federal Confidentiality of Alcohol and Drug Abuse Patient Records regulations: The Federal rules restrict any use of the information to criminally investigate or prosecute any alcohol or drug abuse patient.[facility] WestIn the event this information is protected by the Federal Confidentiality of Alcohol and Drug Abuse Patient Records regulations: The Federal rules restrict any use of the information to criminally investigate or prosecute any alcohol or drug abuse patient.[facility] WestIn the event this information is protected by the Federal Confidentiality of Alcohol and Drug Abuse Patient Records regulations: The Federal rules restrict any use of the information to criminally investigate or prosecute any alcohol or drug abuse patient.[facility] WestIn the event this information is protected by the Federal Confidentiality of Alcohol and Drug Abuse Patient Records regulations: The Federal rules restrict any use of the information to criminally investigate or prosecute any alcohol or drug abuse patient.[facility] WestIn the event this information is protected by the Federal Confidentiality of Alcohol and Drug Abuse Patient Records regulations: The Federal rules restrict any use of the information to criminally investigate or prosecute any alcohol or drug abuse patient.[facility] WestIn the event this information is protected by the Federal Confidentiality of Alcohol and Drug Abuse Patient Records regulations: The Federal rules restrict any use of the information to criminally investigate or prosecute any alcohol or drug abuse patient.[facility] WestIn the event this information is protected by the Federal Confidentiality of Alcohol and Drug Abuse Patient Records regulations: The Federal rules restrict any use of the information to criminally investigate or prosecute any alcohol or drug abuse patient.[facility] WestIn the event this information is protected by the Federal Confidentiality of Alcohol and Drug Abuse Patient Records regulations: The Federal rules restrict any use of the information to criminally investigate or prosecute any alcohol or drug abuse patient.[facility] WestIn the event this information is protected by the Federal Confidentiality of Alcohol and Drug Abuse Patient Records regulations: The Federal rules restrict any use of the information to criminally investigate or prosecute any alcohol or drug abuse patient.[facility] WestIn the event this information is protected by the Federal Confidentiality of Alcohol and Drug Abuse Patient Records regulations: The Federal rules restrict any use of the information to criminally investigate or prosecute any alcohol or drug abuse patient.[facility] WestIn the event this information is protected by the Federal Confidentiality of Alcohol and Drug Abuse Patient Records regulations: The Federal rules restrict any use of the information to criminally investigate or prosecute any alcohol or drug abuse patient.[facility] WestIn the event this information is protected by the Federal Confidentiality of Alcohol and Drug Abuse Patient Records regulations: The Federal rules restrict any use of the information to criminally investigate or prosecute any alcohol or drug abuse patient.[facility] WestIn the event this information is protected by the Federal Confidentiality of Alcohol and Drug Abuse Patient Records regulations: The Federal rules restrict any use of the information to criminally investigate or prosecute any alcohol or drug abuse patient.[facility] WestIn the event this information is protected by the Federal Confidentiality of Alcohol and Drug Abuse Patient Records regulations: The Federal rules restrict any use of the information to criminally investigate or prosecute any alcohol or drug abuse patient.[facility] WestIn the event this information is protected by the Federal Confidentiality of Alcohol and Drug Abuse Patient Records regulations: The Federal rules restrict any use of the information to criminally investigate or prosecute any alcohol or drug abuse patient.[facility] WestIn the event this information is protected by the Federal Confidentiality of Alcohol and Drug Abuse Patient Records regulations: The Federal rules restrict any use of the information to criminally investigate or prosecute any alcohol or drug abuse patient.[facility] WestIn the event this information is protected by the Federal Confidentiality of Alcohol and Drug Abuse Patient Records regulations: The Federal rules restrict any use of the information to criminally investigate or prosecute any alcohol or drug abuse patient.[facility] WestIn the event this information is protected by the Federal Confidentiality of Alcohol and Drug Abuse Patient Records regulations: The Federal rules restrict any use of the information to criminally investigate or prosecute any alcohol or drug abuse patient.[facility] WestIn the event this information is protected by the Federal Confidentiality of Alcohol and Drug Abuse Patient Records regulations: The Federal rules restrict any use of the information to criminally investigate or prosecute any alcohol or drug abuse patient.[facility] WestIn the event this information is protected by the Federal Confidentiality of Alcohol and Drug Abuse Patient Records regulations: The Federal rules restrict any use of the information to criminally investigate or prosecute any alcohol or drug abuse patient.[facility] WestIn the event this information is protected by the Federal Confidentiality of Alcohol and Drug Abuse Patient Records regulations: The Federal rules restrict any use of the information to criminally investigate or prosecute any alcohol or drug abuse patient.[facility] WestIn the event this information is protected by the Federal Confidentiality of Alcohol and Drug Abuse Patient Records regulations: The Federal rules restrict any use of the information to criminally investigate or prosecute any alcohol or drug abuse patient.[facility] WestIn the event this information is protected by the Federal Confidentiality of Alcohol and Drug Abuse Patient Records regulations: The Federal rules restrict any use of the information to criminally investigate or prosecute any alcohol or drug abuse patient.[facility] WestIn the event this information is protected by the Federal Confidentiality of Alcohol and Drug Abuse Patient Records regulations: The Federal rules restrict any use of the information to criminally investigate or prosecute any alcohol or drug abuse patient.[facility] WestIn the event this information is protected by the Federal Confidentiality of Alcohol and Drug Abuse Patient Records regulations: The Federal rules restrict any use of the information to criminally investigate or prosecute any alcohol or drug abuse patient.[facility] WestIn the event this information is protected by the Federal Confidentiality of Alcohol and Drug Abuse Patient Records regulations: The Federal rules restrict any use of the information to criminally investigate or prosecute any alcohol or drug abuse patient.[facility] WestIn the event this information is protected by the Federal Confidentiality of Alcohol and Drug Abuse Patient Records regulations: The Federal rules restrict any use of the information to criminally investigate or prosecute any alcohol or drug abuse patient.[facility] Reason for Visit (unrecogniz ed section and content) Reason Onset Date Comments [facility] outreach 12/05/2021 in Sight enrollment with [facility] introduction Reason Onset Date Comments [facility] 12/13/2021 in Sight enrollment with [facility] introduction Reason Comments Follow Up Reason Comments Results Reason Onset Date Comments [facility] Out[facility] 01/11/2022 in Sight check in call Reason Onset Date Comments Refill Request 02/07/2022 Reason Onset Date Comments [facility] 03/12/2022 Check in call Reason Onset Date Comments [facility] 04/10/2022 Check in call Reason Onset Date Comments Refill Request 04/25/2022 Reason Onset Date Comments [facility] 05/08/2022 Check in call Reason Onset Date Comments [facility] 06/06/2022 Check in call Reason Onset Date Comments Transition Of Care 06/10/2022 Reason Comments Patient Update Reason Comments Hospital F/U Reason Onset Date Comments [facility] 06/26/2022 Check in call Reason Onset Date Comments [facility] 07/25/2022 Check in call Reason Onset Date Comments [facility] 09/20/2022 Check in call Reason Onset Date Comments [facility] 10/18/2022 CDM telepho levi Reason Onset Date Comments [facility] 11/15/2022 Reason Onset Date Comments [facility] 12/13/2022 CDM telepho levi Reason Onset Date Comments Refill Request 12/13/2022 Reason Comments Physical Diabetes Reason Onset Date Comments [facility] 01/10/2023 CDM telepho levi Reason Comments Blood Pressure Check Specialty Diagnoses / Procedures Referred By Julieth robison Referred To Contact FAMILY MEDICINE Diagnoses Follow ups Procedures Follow ups Kb Lackey MD [address] [place] [address] [facility] [address] [place] [address] Referral ID Status Reason Start Date Expiration Date Visits Requested Visits Authorized [id number] Pending Review OON/Self Pay Override 12/23/2022 07/06/2023 5 5 Reason Onset Date Comments [facility] 03/03/2023 CDM telepho levi Reason Onset Date Comments Refill Request 06/26/2023 Reason Onset Date Comments community monitoring 06/26/2023 CDM telepho levi Reason Onset Date Comments community monitoring 07/24/2023 CDM telepho levi Reason Comments 6 Month Exam Reason Onset Date Comments COMMUNITY MONITORING 08/21/2023 CDM telepho leiv Reason Comments Appointment Reason Comments Appointment Infectious Diseases Dr Didier Man @ [facility] [place] on 09/01 next week Reason Comments Consult Reason Onset Date Comments community monitoring 09/18/2023 CDM telepho levi Reason Onset Date Comments community monitoring 11/13/2023 CDM telepho levi Reason Onset Date Comments Refill Request 11/28/2023 Reason Onset Date Comments community monitoring 12/11/2023 CDM telepho levi Reason Onset Date Comments Refill Request 12/17/2023 Reason Onset Date Comments community monitoring 01/08/2024 CDM telepho levi Reason Comments Follow Up 6 month follow up Reason Onset Date Comments community monitoring 02/05/2024 CDM telepho levi Reason Onset Date Comments community monitoring 03/05/2024 CDM telepho levi Reason Onset Date Comments Refill Request 05/29/2024 Reason Onset Date Comments Population Health Navigation Outreach 07/09/2024 Rejia Caroline Virk Reason Comments Results Reason Onset Date Comments Refill Request 11/20/2024 Reason Onset Date Comments Allied Health Visit 12/03/2024 Medication A dherence Outreach Reason Onset Date Comments Refill Request 12/03/2024 Care Teams (unrecognized sec tion and content) Fine Wire Drawer Relationship Specialty Start Date End Date Kb Lackey MD [address] [place], [place] [id number] PCP - General Family Practice 04/18/14 Fine Wire Drawer Relationship Specialty Start Date End Date Kb Lackey MD [address] [place] [address] PCP - General Family Practice 04/18/14AugustMaribell RN [address] [place] [address] Cigar Packer And Sorter Unspecified 12/13/21 Fine Wire Drawer Relationship Specialty Start Date End Date Kb Lackey MD [address] [place] [address] PCP - General Family Practice 04/18/14August, Maribell Rodríguez, RN [address] [place] [address] Cigar Packer And Sorter Unspecified 12/13/21 Fine Wire Drawer Relationship Specialty Start Date End Date Kb Lackey MD [address] [place] [address] PCP - General Family Practice 04/18/14August, Maribell Rodríguez RN [address] [place] [address] Cigar Packer And Sorter Unspecified 12/13/21 Fine Wire Drawer Relationship Specialty Start Date End Date Kb Lackey MD [address] [place] [address] PCP - General Family Medicine 04/18/14August, Maribell Rodríguez RN [address] [place] [address] Cigar Packer And Sorter Unspecified 12/13/21 Fine Wire Drawer Relationship Specialty Start Date End Date Kb Lackey MD [address] [place] [address] PCP - General Family Medicine 04/18/14August, Maribell Rodríguez RN [address] [place] [address] Cigar Packer And Sorter Unspecified 12/13/21 Fine Wire Drawer Relationship Specialty Start Date End Date Kb Lackey MD [address] [place] [address] PCP - General Family Medicine 04/18/14AugustMaribell RN [address] [place] [address] Cigar Packer And Sorter Unspecified 12/13/21 Fine Wire Drawer Relationship Specialty Start Date End Date Kb Lackey MD [address] [place] [address] PCP - General Family Medicine 04/18/14AugustMaribell RN [address] [place], [place] [id number] Cigar Packer And Sorter Unspecified 12/13/21 Fine Wire Drawer Relationship Specialty Start Date End Date Kb Lackey MD [address] [place], [place] [address] PCP - General Family Medicine 04/18/14August, Maribell Rodríguez RN [address] [place], [place] [id number] Cigar Packer And Sorter Unspecified 12/13/21 Team Status: Active Member Role Status Dates Dr. Woo Julien MD Family Provider Active Dr. Kb Lackey MD Primary Care Provider Active Team Status: Inactive Member Role Status Dates Dr. Kb Lackey MD Primary Care Provider, Referring Provider Active Dr. Salvador Kemp MD Attending Provider Active Team Status: Active Member Role Status Dates Dr. Kb Lackey MD Primary Care Provider Active Andres Garcia MD Emergency Provider Active Dr. Mk Davis MD Admit Provider, Attending Pro vider Active Team Status: Active Member Role Status Dates Dr. Kb Lackey MD Primary Care Provider Active Andres Garcia MD Emergency Provider Active Dr. Mk Davis MD Admit Provider, Attending Provider, Other Provider Active Team Status: Active Member Role Status Dates Dr. Kb Lackey MD Primary Care Provider Active Andres Garcia MD Emergency Provider Active Dr. Mk Davis MD Admit Provider, Other Provide r Active Dr. Dennys Buenrostro DO Attending Provider, Other Pro vider Active Team Status: Inactive Member Role Status Dates Dr. Kb Lackey MD Primary Care Provider Active Andres Garcia MD Emergency Provider Active Dr. Mk Davis MD Admit Provider, Other Provide r Active Dr. Dennys Buenrostro DO Attending Provider Active Fine Wire Drawer Relationship Specialty Start Date End Date Kb Lackey MD [address] [place], [place] [address] PCP - General Family Medicine 04/18/14August, Maribell Rodríguez RN [address] [place] [address] Cigar Packer And Sorter Unspecified 12/13/21 Fine Wire Drawer Relationship Specialty Start Date End Date Kb Lackey MD [address] [place] [address] PCP - General Family Medicine 04/18/14August, Maribell Rodríguez RN [address] [place] [address] Cigar Packer And Sorter Unspecified 12/13/21 Fine Wire Drawer Relationship Specialty Start Date End Date Kb Lackey MD [address] [place] [address] PCP - General Family Medicine 04/18/14August, Maribell Rodríguez RN [address] [place] [address] Cigar Packer And Sorter Unspecified 12/13/21 Fine Wire Drawer Relationship Specialty Start Date End Date Kb Lackey MD [address] [place] [address] PCP - General Family Medicine 04/18/14 Kianna Barnett, RN [address] [place] [address] Cigar Packer And Sorter Internal Medicine 09/09/22 Fine Wire Drawer Relationship Specialty Start Date End Date Kb Lackey MD [address] [place] [address] PCP - General Family Medicine 04/18/14 Kianna Barnett, RN [address] [place] [address] Cigar Packer And Sorter Internal Medicine 09/09/22 Fine Wire Drawer Relationship Specialty Start Date End Date Kb Lackey MD [address] [place] [address] PCP - General Family Medicine 04/18/14 Kianna Barnett, RN [address] [place] [address] Cigar Packer And Sorter Internal Medicine 09/09/22 Fine Wire Drawer Relationship Specialty Start Date End Date Kb Lackey MD [address] [place] [address] PCP - General Family Medicine 04/18/14 Kianna Barnett, RN [address] [place] [address] Cigar Packer And Sorter Internal Medicine 09/09/22 Fine Wire Drawer Relationship Specialty Start Date End Date Kb Lackey MD [address] [place] [address] PCP - General Family Medicine 04/18/14 Kianna Barnett, RN [address] [place] [address] Cigar Packer And Sorter Internal Medicine 09/09/22 Fine Wire Drawer Relationship Specialty Start Date End Date Kb Lackey MD [address] [place] [address] PCP - General Family Medicine 04/18/14 Kianna Barnett RN [address] [place] [address] Cigar Packer And Sorter Internal Medicine 09/09/22 Fine Wire Drawer Relationship Specialty Start Date End Date Kb Lackey MD [address] [place] [address] PCP - General Family Medicine 04/18/14 Kianna Barnett, RN [address] [place] [address] Cigar Packer And Sorter Internal Medicine 09/09/22 Fine Wire Drawer Relationship Specialty Start Date End Date Kb Lackey MD [address] [place] [address] PCP - General Family Medicine 04/18/14 Kianna Barnett, RN [address] [place] [address] Cigar Packer And Sorter Internal Medicine 09/09/22 Fine Wire Drawer Relationship Specialty Start Date End Date Kb Lackey MD [address] [place] [address] PCP - General Family Medicine 04/18/14 Kianna Barnett, RN [address] [place] [address] Cigar Packer And Sorter Internal Medicine 09/09/22 Fine Wire Drawer Relationship Specialty Start Date End Date Kb Lackey MD [address] [place] [address] PCP - General Family Medicine 04/18/14 Kianna Barnett, RN [address] [place] [address] Cigar Packer And Sorter Internal Medicine 09/09/22 Fine Wire Drawer Relationship Specialty Start Date End Date Kb Lackey MD [address] [place] [address] PCP - General Family Medicine 04/18/14 Kianna Barnett, RN [address] [place] [address] Cigar Packer And Sorter Internal Medicine 09/09/22 Fine Wire Drawer Relationship Specialty Start Date End Date Kb Lackey MD [address] [place] [address] PCP - General Family Medicine 04/18/14 Kianna Barnett, RN [address] [place] [address] Cigar Packer And Sorter Internal Medicine 09/09/22 Fine Wire Drawer Relationship Specialty Start Date End Date Kb Lackey MD [address] [place] [address] PCP - General Family Medicine 04/18/14 Kianna Barnett, RN [address] [place] [address] Cigar Packer And Sorter Internal Medicine 09/09/22 Fine Wire Drawer Relationship Specialty Start Date End Date Kb Lackey MD [address] [place], [place] [address] PCP - General Family Medicine 04/18/14 Kianna Barnett, RN [address] [place] [address] Cigar Packer And Sorter Internal Medicine 09/09/22 Fine Wire Drawer Relationship Specialty Start Date End Date Kb Lackey MD [address] [place] [address] PCP - General Family Medicine 04/18/14 Kianna Barnett, LEELA [address] [place] [address] Cigar Packer And Sorter Internal Medicine 09/09/22 Fine Wire Drawer Relationship Specialty Start Date End Date Kb Lackey MD [address] [place] [address] PCP - General Family Medicine 04/18/14 Joan King, AUCTIONEER TOBACCO.ARMY MANAGER [address] [place] [address] Mogul Operator Family Medicine 03/15/24 Jeni Graham, AUCTIONEER TOBACCO.ARMY MANAGER [address] [place] [address] Mogul Operator Family Medicine 03/15/24 Fine Wire Drawer Relationship Specialty Start Date End Date Kb Lackey MD [address] [place] [address] PCP - General Family Medicine 04/18/14 Joan King, AUCTIONEER TOBACCO.ARMY MANAGER [address] [place] [address] Mogul Operator Family Medicine 03/15/24 Jeni Graham AUCTIONEER TOBACCO.ARMY MANAGER [address] [place] [address] [facility] 03/15/24 Fine Wire Drawer Relationship Specialty Start Date End Date Kb Lackey MD [address] [place] [address] PCP - General Family Medicine 04/18/14 Joan King APRN.ARMY MANAGER [address] [facility] [place] [address] [facility] 03/15/24 Jeni Graham AUCTIONEER TOBACCO.ARMY MANAGER [address] [place] [address] [facility] 03/15/24 Fine Wire Drawer Relationship Specialty Start Date End Date Kb Lackey MD [address] [place] [address] PCP - General Family Medicine 04/18/14 Joan King APRN.ARMY MANAGER [address] [facility] [place] [address] [facility] Medicine 03/15/24 Jeni Graham AUCTIONEER TOBACCO.ARMY MANAGER [address] [place] [address] [facility] 03/15/24 Fine Wire Drawer Relationship Specialty Start Date End Date Kb Lackey MD [address] [place] [address] PCP - General Family Medicine 04/18/14 Joan King APRN.ARMY MANAGER [address] [facility] [place] [address] Mogul Operator [facility] 03/15/24 Jeni Graham APRN.ARMY MANAGER [address] [place] [address] [facility] Fine Wire Drawer Relationship Specialty Start Date End Date Kb Lackey MD [address] [place] [address] PCP - General Family Medicine 04/18/14 Joan King APRN.ARMY MANAGER [address] [facility] [place] [address] [facility] 03/15/24 Jeni Graham APRN.ARMY MANAGER [address] [place] [address] [facility] 03/15/[facility] Fine Wire Drawer Relationship Specialty Start Date End Date Kb Lackey MD [address] [place] [address] PCP - General Family Medicine 04/18/14 Joan King APRN.ARMY MANAGER [address] [facility] [place] [address] [facility] 03/15/24 Jeni Graham APRN.ARMY MANAGER [address] [place] [address] [facility] 03/15/24 Team Status: Active Member Role/Relationship Status Dates Dr. Kb Lackey MD Primary Care Provider Active Team Status: Inactive Member Role/Relationship Status Dates Dr. Kb Lackey MD Primary Care Provider Active Start: July 26, 2024 End: July 28, 2024 Dr. Warren Rosenberg , Emergency Provider Active Start: July 26, 2024 End: July 28, 2024 Dr. Michael House , DO Admit Provider Active Start: July 26, 2024 End: July 28, 2024 Dr. Michael House , DO Other Provider Active Start: July 26, 2024 End: July 28, 2024 Dr. Dennys Buenrostro , Attending Provider Active Start: July 26, 2024 End: July 28, 2024 Team Status: Active Member Role/Relationship Status Dates Dr. Kb Lackey MD Primary Care Provider Active Start: July 27, 2024 Dr. Warren Rosenberg , Emergency Provider Active Start: July 27, 2024 Dr. Michael House DO Admit Provider Active Start: July 27, 2024 Dr. Michael House , Other Provider Active Start: July 27, 2024 Dr. Dennys Buenrostro , Attending Provider Active Start: July 27, 2024 Dr. Dennys Buenrostro , Other Provider Active S tart: July 27, 2024 Team Status: Active Member Role/Relationship Status Dates Dr. Kb Lackey MD Primary Care Provider Active Start: July 28, 2024 Dr. Warren Rosenberg , Emergency Provider Active Start: July 28, 2024 Dr. Michael House , DO Admit Provider Active Start: July 28, 2024 Dr. Michael House , Other Provider Active Start: July 28, 2024 Dr. Dennys Buenrostro , Attending Provider Active Start: July 28, 2024 Dr. Dennys Buenrostro , Other Provider Active S tart: July 28, 2024 Team Status: Inactive Member Role/Relationship Status Dates Dr. Kb Lackey MD Primary Care Provider Active Start: August 03, 2024 End: August 03, 2024 Dr. Kb Lackey MD Referring Provider Active Start: August 03, 2024 End: August 03, 2024 Dr. Salvador Kemp MD Attending Provider Active Sta rt: August 03, 2024 End: August 03, 2024 Team Status: Inactive Member Role/Relationship Status Dates Dr. Kb Lackey MD Primary Care Provider Active Start: November 22, 2024 End: November 22, 2024 Dr. Kb Lackey MD Referring Provider Active Start: November 22, 2024 End: November 22, 2024 Dr. Salvador Kemp MD Attending Provider Active Sta rt: November 22, 2024 End: November 22, 2024 Fine Wire Drawer Relationship Specialty Start Date End Date Kb Lackey MD [address] [place], [place] [address] PCP - General Family Medicine 04/18/14 Joan King, AUCTIONEER TOBACCO.ARMY MANAGER [address] [place], [place] [address] [facility] 03/15/24 Jeni Graham, AUCTIONEER TOBACCO.ARMY MANAGER [address] [place], [place] [address] [facility] 03/15/24 Fine Wire Drawer Relationship Specialty Start Date End Date Kb Lackey MD [address] [place], [place] [address] PCP - General Family Medicine 04/18/14 Joan King, AUCTIONEER TOBACCO.ARMY MANAGER [address] [place], [place] [address] [facility] 03/15/24 Jeni Graham, AUCTIONEER TOBACCO.ARMY MANAGER [address] [place], [place] [id number] [facility] 03/15/24 Goals (unrecognized section and content) Goals may be documented in a n alternate section (unrecognized sect ion and content) No Status Records FoundNo Status Records Found INFORMATION SOURCE (unrecogn ized section and content) DATE CREATED AUTHOR 11/23/2024 [facility] DATE CREATED AUTHOR AUTHOR'S JUSTEN LOPEZ 02/12/2025 [facility] FOR RECORDS PERTAINING TO PATIENTS WHO ARE OR HAVE BEEN ENROLLED IN A CHEMICAL DEPENDENCY/SUBSTANCEABUSE PROGRAM, SOME INFORMATION MAY BE OMITTED. This clinical summary was aggregated from multiple sources. Caution should be exercised in using it in the provision of clinical care. This summary normalizes information from multiple sources, and as a consequence, information in this document may materially change the coding, format and clinical context of patient data. In addition, data may be omitted in some cases. CLINICAL DECISIONS SHOULD BE BASED ON THE PRIMARY CLINICAL RECORDS. [employer] [facility]. provides no warranty or guarantee of the accuracy or completeness of information in this document.
--- NOTE | 2025-03-03 19:02 | EX.ED.DYSGE1 ---
HPI History of Present Illness Chief Complaint: Hyperglycemia Narrative Narrative: Chief complaint and HPI: 84-year-old male with past medical history of DM2 and hypothyroidism who presents for evaluation of UTI symptoms and hyperglycemia. Patient states for the past several days he has been having urinary frequency. Denies dysuria. States he took a home urine test that was positive for nitrates. Patient states he has been taking his diabetic medication. States his evening after taking his insulin his sugar was 375. Family has noticed that he has been intermittently confused. He denies any fever, chills, shortness of breath, chest pain, nausea, vomiting. Review of systems: See HPI Medications: As listed on the chart Allergies: As listed on the chart PFSH: Per chart Vital signs: As listed on the chart. Reviewed. Physical exam: Gen: A&O x3, NAD Head: Normocephalic, atraumatic Eyes: No sclera icterus, conjunctiva clear ENT: Mildly dry mucous membranes, bilateral hearing aids CV: RRR, no murmurs Resp: Lungs CTA BL, no w/r/c GI: Abd soft, non-distended, non-tender, no r/r/g Musc: Full ROM, no deformity Skin: Warm, dry Neuro: Alert, oriented, grossly intact Psych: Cooperative, appropriate mood and affect [facility] Medical History Acute metabolic encephalopathy Adverse drug reaction Hypoglycemia associated with type 2 diabetes mellitus Acute cystitis with hematuria CHANTALE (acute kidney injury) Dementia Benign essential hypertension Hypothyroidism (acquired) Diabetes Vision problem Thyroid disease Hearing problem Cataract gallbladder Hernia Hypertension Hypothyroidism Diabetes mellitus Home Medications ?Medication ?Instructions ?Recorded ?Last Taken ?Type ferrous sulfate 325 mg (65 mg 325 mg PO DAILY anemia 06/25/20 07/26/24 History iron) tablet lancets 30 gauge and blood glucose ##1 06/27/20 Unknown Rx strips combo pack cholecalciferol (vitamin D3) 25 25 mcg PO DAILY vitamin 07/18/20 07/26/24 History mcg (1,000 unit) capsule pen needle, diabetic, safety 30 #100 ea 01/05/24 Unknown Rx gauge x 1/3 cyanocobalamin (vitamin B-12) 1,000 mcg PO DAILY 07/26/24 07/26/24 History 1,000 mcg tablet levothyroxine 125 mcg tablet 125 mcg PO DAILY 07/26/24 07/26/24 History lisinopril 30 mg tablet 30 mg PO DAILY 07/26/24 07/26/24 History metformin 500 mg tablet,extended 1,000 mg (2 x 500 mg) PO BID 09/17/24 Unknown Rx release 24 hr diabetes #360 tabs insulin NPH-regular 70-30 U-100 See Rx Instructions subcut BID 03/03/25 Unknown History insulin 100 unit/mL subcutaneous pen (Novolin 70-30 FlexPen U-100 Insulin) Allergy/AdvReac Type Severity Reaction Status Date / Time No Known Allergies Allergy Verified 03/03/25 18:22 Family History Other Cancer Surgical History History of cholecystectomy Social History Smoking Status: Former smoker alcohol intake: current alcohol intake frequency: 0-2 drinks per day substance use type: does not use what type of physical activity do you participate in: walking frequency: daily EXAM Physical Exam Const Vital Signs: 03/03/25 18:19 03/03/25 18:51 03/03/25 19:45 Temperature 98.6 F Temperature Source Oral Pulse Rate 99 81 Respiratory Rate 20 H 14 Respiratory Effort Normal Respiratory Pattern Normal Blood Pressure 114/83 H 99/59 L Blood Pressure Mean 93 72 Pulse Ox 100 99 Oxygen Delivery Method Room Air Room Air MDM MDM MDM Narrative Medical decision making narrative: 84-year-old male with past medical history of DM2 and hypothyroidism who presents for evaluation of UTI symptoms and hyperglycemia. Differential diagnosis includes but is not limited to UTI, pyelonephritis, hyperglycemia, DKA, electrolyte abnormality, dehydration. NS bolus ordered. On chart review patient takes metformin 1000 mg twice daily. Also takes Novolin 70/30 FlexPen. Last took it at 5 PM. VBG with normal pH however bicarb is low. CBC without leukocytosis. Patient has stable anemia of 11.7. Platelets unremarkable. CMP shows CHANTALE on CKD. BUN 42. Creatinine 2.28. Patient also has anion gap of 22 with a lactic acidosis of 6. Hyperglycemia 199. No transaminitis. Beta hydroxybutyrate 1.9. UA positive for ketones, glucose, pyuria without bacteria. Urine culture sent. Levaquin ordered for suspected UTI. Patient will warrant admission for hydration and IV antibiotics. Patient and family confirmed understand the plan. Patient was discussed with the hospitalist who accepted admission. Impression: 1. CHANTALE 2. Pyuria, likely UTI 3. Lactic acidosis 4. Hyperglycemia in known diabetic Lab Data Labs: Laboratory Results - last 24 hr 03/03/25 03/03/25 03/03/25 18:43 19:20 19:44 WBC 7.0 RBC 3.77 L Hgb 11.7 L Hct 35.2 L MCV 93.4 MCH 31.0 MCHC 33.2 RDW Std Deviation 43.5 RDW Coeff of Moise 12.7 Plt Count 323 MPV 10.7 Immature Gran % (Auto) 1.300 H Neut % (Auto) 65.6 Lymph % (Auto) 19.5 [place] % (Auto) 12.4 H Eos % (Auto) 0.6 Baso % (Auto) 0.6 Absolute Neuts (auto) 4.6 Absolute Lymphs (auto) 1.36 Nucleated RBC % 0 Sodium 141 Potassium 4.2 Chloride 102 Carbon Dioxide 17.2 L Anion Gap 22 H BUN 42 H Creatinine 2.29 H Estim Creat Clear Calc 24.20 L Est GFR (MDRD) Non-Af 28 L BUN/Creatinine Ratio 18.2 Glucose 199 H Lactic Acid 6.0 H* Calcium 9.9 Total Bilirubin 0.29 AST 16 ALT 12 Alkaline Phosphatase 116 Total Protein 7.6 Albumin 4.1 Globulin 3.4 Albumin/Globulin Ratio 1.2 b-Hydroxybutyric mmol/L 1.9 H Urine Color Yellow Urine Clarity Cloudy Urine pH 5.0 Ur Specific [place] 1.015 Urine Protein 100 H Urine Glucose (UA) 1000 H Urine Ketones 50 H Urine Occult Blood 150 H Urine Nitrite Negative Urine Bilirubin Negative Urine Urobilinogen Normal Ur Leukocyte Esterase 500 H Urine RBC 0 SEEN Urine WBC >100 SEEN Ur Squamous Epith Cells 0 SEEN Urine Bacteria 0 SEEN Urine Mucus 0 SEEN POC Glucose 363 H ABG Data ABG results: ABG 03/03/25 19:24 Specimen Type ASHTYN Sample Site Not entered VBG pH 7.34 VBG pO2 21 L VBG HCO3 18 L VBG Total CO2 19 L VBG O2 Sat (Calc) 31 L VBG Base Excess -8 L POC Mix VBG pCO2 Pt Tmp 33.1 L O2 Delivery Device Room Air Discharge Plan Triage Chief Complaint: Hyperglycemia Other Complaint: Complaint ED Provider: Efrem Thapa Dx/Rx/DC Orders Prescriptions: No Action cholecalciferol (vitamin D3) 25 mcg (1,000 unit) capsule 25 mcg PO DAILY ferrous sulfate 325 MG tablet 325 mg PO DAILY (DME) lancets-blood glucose strips 1 EACH combo pack 1 each MC BID Qty: 1 1RF cyanocobalamin (vitamin B-12) 1,000 mcg tablet 1,000 mcg PO DAILY levothyroxine 125 mcg tablet 125 mcg PO DAILY lisinopril 30 mg tablet 30 mg PO DAILY Novolin 70-30 FlexPen U-100 100 unit/mL (70-30) insulin pen See Rx Instructions subcut BID Rx Instructions: 22 UNITS EVERY MORNING, 12 UNITS at bedtime (DME) pen needle, diabetic, safety 30 gauge x 1/3 needle 1 ea ALEC. UD Qty: 100 6RF Rx Instructions: 3x/day metformin 500 mg tablet extended release 24 hr 1,000 mg PO BID Qty: 360 3RF Primary Care Provider: Kb Valdez Referrals: Kb Valdez MD [Primary Care Provider, Medical] Print Language: Occitan
[2025-03-03] MEDS: 0.9% Normal Saline (1000mL) 1,000 ML 1000 ML IV (19:22)
[2025-03-03 19:27] LABS: SITE Not entered; VBG BASE EXCESS -8 mmol/L (-1.0-3.5); VBG PO2 21 mmHg (25-40); VBG SO2 31 % (50-70); VBG TCO2 19 mmol/L (23-33)
[2025-03-03 19:33] LABS: Hematocrit 35.2 % (40-54); Hemoglobin 11.7 g/dL (13.0-16.5); Immature Granulocytes Count 0.090 X10^3/uL (0.0-0.0); Mean Corp Hgb Conc 33.2 g/dL (32-36); Mean Corpuscular Volume 93.4 fL (80-94); Mean Platelet Vol. 10.7 fl (6.2-12.0); NRBC Flagged by Analyzer 0 % (0-5); Platelet Count 323 K/mm3 (150-450); RBC Distribution Width CV 12.7 % (11.6-14.6); RBC Distribution Width SD 43.5 fl (35.1-43.9); Red Blood Count 3.77 M/mm3 (4.6-6.2); White Blood Count 7.0 K/mm3 (4.4-11.0)
[2025-03-03 19:45] VITALS: BP 99/59; PULSE 81; RESP 14; O2SAT 99
[2025-03-03 19:48] LABS: Mucous, Urine 0 SEEN /hpf (<or=2+); Squamous Epithelial Cells - UA 0 SEEN /hpf (0-5)
[2025-03-03 19:49] LABS: Color, Urine Yellow (Yellow); Glucose, Dipstick 1000 mg/dl (Normal); Ketone-Dipstick 50 mg/dl (Negative); Leukocyte Esterase-Dipstick 500 /ul (Negative); Nitrite-Dipstick Negative (Negative); Occult Blood-Urine 150 /ul (Negative); Protein-Dipstick 100 mg/dl (Negative); Specific Gravity, Urine 1.015 (1.002-1.030); Urine Bilirubin Dipstick Negative (Negative)
[2025-03-03 19:59] LABS: Red Blood Cells-Urine 0 SEEN /hpf (0-5)
[2025-03-03 20:20] LABS: AST(SGOT) 16 U/L (<=37); Alanine Aminotransfer ALT/SGPT 12 U/L (<=46); Albumin, Serum 4.1 g/dL (3.4-4.8); Alkaline Phosphatase 116 U/L (40-129); Anion Gap 22 (5-15); BETA-HYDROXYBUTYRATE 1.9 mmol/L (0.0-0.3); BUN 42 mg/dL (4-19); BUN/Creat Ratio 18.2 RATIO (10-20); Calcium,Total 9.9 mg/dL (7.6-11.0); Carbon Dioxide 17.2 mmol/L (21.0-32.0); Chloride 102 mmol/L (98-108); Estimated Creatinine Clearance 24.20 ml/min (50-250); Globulin 3.4 g/dL (2.2-4.2); Glucose 199 mg/dL (70-99); Potassium 4.2 mmol/L (3.3-5.1)
[2025-03-03] MEDS: levoFLOXacin IV 750 MG/150 ML BAG 100 MG IV (20:51)
[2025-03-03 20:58] VITALS: BP 95/60; PULSE 75; RESP 14; TEMP 36.6; O2SAT 98
--- NOTE | 2025-03-03 21:14 | HP.PCM.HOS_ITS ---
HPI - General General Date of Admission: 03/03/25 Date of Service: 03/03/25 Chief Complaint: Confusion and urinary frequency HPI Narrative JEAN-CLAUDE DOUGLAS, is a 84 M who presents with increased urinary frequency, high glucose readings at home, confusion and generalized weakness. Patient has medical history of diabetes on insulin and metformin, hypothyroidism, hypertension and mild dementia (remains independent). at bedside states that patient has been going to the bathroom very frequently in the last couple of days, patient himself denies dysuria, turbid/malodorous urine or fever/chills. He had an episode of right flank pain that resolved. says that his behavior today was not making sense which is unusual for him. He has only mild forgetfulness from his baseline dementia. He also had reduced appetite. His glucose monitor was reading high on multiple times although he has been compliant to his Novolin 70/30, he takes 22 units in the morning and 12 in the evening, both are taken after meals instead of before meals. Patient has difficulty controlling his blood sugars, in July he was hypoglycemic and his insulin dose was reduced to the current regimen. states is either high or low but since July he has not had a significant event that require a visit to the ED or hospitalization. His diet and weight have not changed. In the ED, patient was afebrile, blood pressure 95/60 despite 1 L normal saline. WBC 7, lactic acid 6.0, anion gap 22, bicarbonate 17, serum creatinine 2.29 higher than baseline (1.34 on discharge in July). Beta-hydroxybutyrate 1.9 ruling out DKA (less than 3) with a fingerstick blood sugar of 363 that went down to 200 after fluids only [facility] Medical History Acute metabolic encephalopathy Hypoglycemia associated with type 2 diabetes mellitus CHANTALE (acute kidney injury) Adverse drug reaction Acute cystitis with hematuria Dementia Benign essential hypertension Hypothyroidism (acquired) Diabetes Vision problem Thyroid disease Hearing problem Cataract gallbladder Hernia Hypertension Hypothyroidism Diabetes mellitus Home Medications ?Medication ?Instructions ?Recorded ?Last Taken ?Type ferrous sulfate 325 mg (65 mg 325 mg PO DAILY anemia 0 06/25/20 07/26/24 History iron) tablet lancets 30 gauge and blood glucose ##1 06/27/20 Unknow n Rx strips combo pack cholecalciferol (vitamin D3) 25 25 mcg PO DAILY vitami n 07/18/20 07/26/24 History mcg (1,000 unit) capsule pen needle, diabetic, safety 30 #100 ea 01/05/24 Unkno wn Rx gauge x 1/3 cyanocobalamin (vitamin B-12) 1,000 mcg PO DAILY 07/2607/26/24 History 1,000 mcg tablet levothyroxine 125 mcg tablet 125 mcg PO DAILY 07/26/24 07/26/24 History lisinopril 30 mg tablet 30 mg PO DAILY 07/26/24 04/2 05/01 History metformin 500 mg tablet,extended 1,000 mg (2 x 500 mg) PO BID 09/17/24 Unknown Rx release 24 hr diabetes #360 tabs insulin NPH-regular 70-30 U-100 See Rx Instructions edwards bcut BID 03/03/25 Unknown History insulin 100 unit/mL subcutaneous pen (Novolin 70-30 FlexPen U-100 Insulin) Allergy/AdvReac Type Severity Reaction Status Date / Time No Known Allergies Allergy Verified 03/03/25 18:22 Family History Other Cancer Surgical History History of cholecystectomy Social History Smoking Status: Former smoker alcohol intake: current alcohol intake frequency: 0-2 drinks per day substance use type: does not use what type of physical activity do you participate in: walking frequency: daily ROS Constitutional Constitutional: Reports poor appetite; Denies fever(s) ENT HEENT: Reports none Cardiovascular Cardiovascular: Denies chest pain or dyspnea Respiratory/Chest Respiratory/Chest: Denies cough or wheezing Gastrointestinal Gastrointestinal: Denies abdominal pain or change in bowel habits Genitourinary Genitourinary: Reports urinary frequency and urinary urgency; Denies change in urinary stream or dysuria Musculoskeletal Musculoskeletal: Denies arthralgias or myalgias Integumentary Integumentary: Reports none Neurologic Neurologic: Reports confusion; Denies abnormal speech, dizziness, focal weakness, loss of vision or numbness Endocrine Endocrinology: Reports polyuria Hematologic/Lymphatic Hematologic/Lymphatic: Reports none Vital Signs Vital Signs Vital Signs: 03/03/25 18:19 03/03/25 18:51 03/03/25 19:45 Temperature 98.6 F Temperature Source Oral Pulse Rate 99 81 Respiratory Rate 20 H 14 Respiratory Effort Normal Respiratory Pattern Normal Blood Pressure 114/83 H 99/59 L Blood Pressure Mean 93 72 Pulse Ox 100 99 Oxygen Delivery Method Room Air Room Air 03/03/25 20:58 Temperature 98 F Temperature Source Pulse Rate 75 Respiratory Rate 14 Respiratory Effort Respiratory Pattern Blood Pressure 95/60 Blood Pressure Mean 71 Pulse Ox 98 Oxygen Delivery Method Weight Weight: 68.8 kg Body Mass Index (BMI) 21.7 Physical Exam Const alert HEENT normocephalic and head/scalp atraumatic Eyes EOMs intact bilaterally; Negative for no scleral icterus Neck supple Resp normal respiratory effort and clear to auscultation bilaterally Cardio regular rate and regular rhythm; Negative for no murmurs GI normal to inspection, nondistended, normoactive bowel sounds; Negative for non- tender no CVA tenderness Extremity no joint enlargement and no pedal edema Skin no rashes or lesions noted Neuro moves all extremities Neuro Narrative: Oriented to place and person Results Lab / Micro Data 03/04/25 06:05 03/04/25 17:45 Labs: Laboratory Results - last 24 hr 03/03/25 18:43: POC Glucose 363 H 03/03/25 19:20: WBC 7.0, RBC 3.77 L, Hgb 11.7 L, Hct 35.2 L, MCV 93.4, MCH 31.0, MCHC 33.2, RDW Std Deviation 43.5, RDW Coeff of Moise 12.7, Plt Count 323, MPV 10.7, Immature Gran % (Auto) 1.300 H, Neut % (Auto) 65.6, Lymph % (Auto) 19.5, M johanna % (Auto) 12.4 H, Eos % (Auto) 0.6, Baso % (Auto) 0.6, Absolute Neuts (auto) 4.6, Absolute Lymphs (auto) 1.36, Nucleated RBC % 0, Sodium 141, Potassium 4.2, Chloride 102, Carbon Dioxide 17.2 L, Anion Gap 22 H, BUN 42 H, Creatinine 2.29 H , Estim Creat Clear Calc 24.20 L, Est GFR (MDRD) Non-Af 28 L, BUN/Creatinine Ratio 18.2, Glucose 199 H, Lactic Acid 6.0 H*, Calcium 9.9, Total Bilirubin 0.29, AST 16, ALT 12, Alkaline Phosphatase 116, Total Protein 7.6, Albumin 4.1, Globulin 3.4, Albumin/Globulin Ratio 1.2, b-Hydroxybutyric mmol/L 1.9 H 03/03/25 19:44: Urine Color Yellow, Urine Clarity Cloudy, Urine pH 5.0, Ur Specific [place] 1.015, Urine Protein 100 H, Urine Glucose (UA) 1000 H, Urine Ketones 50 H, Urine Occult Blood 150 H, Urine Nitrite Negative, Urine Bilirubin Negative, Urine Urobilinogen Normal, Ur Leukocyte Esterase 500 H, Urine RBC 0 SEEN, Urine WBC >100 SEEN, Ur Squamous Epith Cells 0 SEEN, Urine Bacteria 0 SEEN, Urine Mucus 0 SEEN ABG Data ABG results: ABG 03/03/25 19:24 Specimen Type ASHTYN Sample Site Not entered VBG pH 7.34 VBG pO2 21 L VBG HCO3 18 L VBG Total CO2 19 L VBG O2 Sat (Calc) 31 L VBG Base Excess -8 L POC Mix VBG pCO2 Pt Tmp 33.1 L O2 Delivery Device Room Air Assessment & Plan Assessment/Plan (1) CHANTALE (acute kidney injury): (2) Lactic acidosis: (3) Acute cystitis: (4) Acute metabolic encephalopathy: (5) Hyperglycemia due to type 2 diabetes mellitus: (6) Paronychia of finger of left hand: (7) Benign essential hypertension: (8) Hypothyroidism (acquired): (9) Dementia: QUALIFIERS: Dementia behavioral or psychological symptom: u nspecified whether behavioral, psychotic, or mood disturbance or anxiety D ementia severity: moderate Dementia type: unspecified type Qualified Code(s): F03.B0 - Unspecified dementia, moderate, without behavioral disturbance, psychotic disturbance, mood disturbance, and anxiety PLAN: Plan 84-year-old man with mild dementia, diabetes and hypertension is admitted to the hospital for the management of acute kidney injury, hyperglycemia without DKA, metabolic encephalopathy, UTI and lactic acidosis of 6.0 CHANTALE: Secondary to intravascular hypovolemia induced by osmotic diuresis from hyperglycemia. Worsened by taking lisinopril Treatment with fluids, Ringer lactate is preferred because of acidosis. Treat hyperglycemia. Hold lisinopril. Repeat kidney function. Monitor urine output Lactic acidosis: 6.0 on presentation. From hypovolemia causing hypoperfusion as well as from metformin. He is at risk for metformin-associated lactic acidosis Hold metformin. IV fluids. There is no risk of worsening lactic acidosis with Ringer lactate with intact liver function. Treat the UTI Abnormal UA: Likely UTI (cystitis). Unlikely diabetes complicated because systemic symptoms can be attributed to other etiologies Urine culture. No information from prior cultures IV Rocephin. He received a dose of Levaquin, will better avoid because of his age and mental status Encephalopathy: Metabolic, secondary to hyperglycemia and dehydration as well as UTI. He had mild confusion which is worse than his baseline dementia Hyperglycemia: Likely triggered by concurrent infection UTI. Compliant to insulin, no change in diet or weight. Beta-hydroxybutyrate less than 3 mmol/L ruling out DKA Treat with Lantus and Premeal sliding scale Paronychia: Left 3rd and 4th fingernails. Topical mupirocin and chlorhexidine soak Hypertension: Hold lisinopril because of CHANTALE and hypotension Hypothyroidism: Continue Synthroid Sepsis Attestation Sepsis Attestation: Sepsis Ruled Out Date exam was performed: 03/03/25 Time exam was performed: 09:20 Charges/Coding Visit Charges Inpatient E&M: 99876 Init Hosp L3
--- OUTSIDE RECORDS SUMMARY | 2025-03-03 21:25 | XMS RPT_ITS | CCD ---
Author Organization [facility] Care Team Providers Care Project Director Name Role Phone Kb Lackey MD Primary [...] Kb Lackey MD Primary Care Provider Haagen PRIMER POWDER BLENDER WET.NURSING SERVICES MANAGER, Joan Unavailable Suppan PRIMER POWDER BLENDER WET.NURSING SERVICES MANAGER, Jeni A Unavailable [phone] Dr. Kb Lackey MD Primary Care Provider Dr. Warren Rosenberg DO Emergency Provider Dr. Michael House DO Admit Provider Unavail able Dr. Michael House DO Other Provider Unavail able Dr. Dennys Buenrostro DO Attending Provider Dr. Dennys Buenrostro DO Other Provider Dr. Kb Lackey MD Referring Provider Dr. Salvador Kemp MD Attending Provider Dennys Buenrostro Attending Unavailable Escudilla Bonita, Kb Primary Care Unavailable de RuslanMichael bravo Admitting Unavailable de Ruslan, Michael Consulting Unavailable Salvador Kemp Attending Unavailable Vale, Kb Referring Unavailable Escudilla Bonita, Kb Primary Care Unavailable Vale, Kb Primary Care Unavailable de Ruslan, Michael Admitting Unavailable de Ruslan, Michael Consulting Unavailable de Rsulan, Michael Attending Unavailable Dennys Buenrostro Attending Unavailable Dennys Buenrostro Consulting Unavailable Vale, Kb Referring Unavailable Vale, Kb Primary Care Unavailable Salvador Kemp Attending Unavailable Escudilla Bonita, Kb Referring Unavailable Vale, Kb Primary Care Unavailable Salvador Kemp Attending Unavailable Salvador Kemp Attending Unavailable Escudilla Bonita, Kb Primary Care Unavailable Escudilla Bonita, Kb Referring Unavailable Salvador Kemp Attending Unavailable Escudilla Bonita, Kb Primary Care Unavailable Vale, Kb Referring [...] vitamin Start: 10-16-2016 take 1 capsule by [facility] once daily Cholecalciferol, Vitamin D3, 1,000 unit [...] two times a day with meals. Per [facility] 24 units every morning and 10 units [...] on above: Take 2 tablets by mo [facility] daily with breakfast. Take 2 tablets by mo [facility] twice daily. mv,iron,min-FA-diet keena cmb.24 400 mcg tab (20 sources) Start: 05-06-2019 take 1 tablet by mouth once daily mv,iron,min-FA-di etary cmb.24 400 mcg tab Take 1 tablet by mouth once daily. 05/06/2019 Active Start: 05-06-2019 take 1 tablet by [facility] once daily mv,iron,fyo-HM-focwamo cmb.24 400 mcg ta b Take 1 tablet by mouth once daily. 0 05/06/2019 Active Comment on above: Take 1 tablet by [facility] once daily. 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 [address] [place] [address] OFFICE VISIT Date of Service: 11/22/24 MR#: [id number] Acct: [id number] Name: JEAN-CLAUDE DOUGLAS Rep #: [id number] : 1940 Provider: Betsey Garcia Age/Sex: 84/M [place] [facility] [place]: Signed Intake Vital Signs 08/03/24 13:27 [...] nourished Orientation: alert, awake and oriented x3 HENIA Head: normal to inspection Ears: hearing grossly [...] Diabetes mellitus type: type 2 Diabetes mellitus care home insulin use: with care home use Diabetes mellitus complication status: with neurologic complications Diabetes mellitus complication detail: with polyneuropathy Qualified Code(s): E11.42 - Type 2 diabetes mellitus with diabetic polyneuropathy; 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 Normal [facility] HBA1C (OUTSIDE)on 11-22-2024 HbA1c (Bld) [Mass fraction] 9.9 % [facility] Comment on above: Dr Kemp [facility] Basic metabolic 2000 panelon 09-15-2024 Anion gap [Moles/Vol] 14 mmol/L Normal 8-15 [facility] Comment on above: Order Comment: Speci men Type: BLOOD SPECIMENOrdering Facility: [facility] Address: [address] [place] [address] Performed By: #### 5 0190-8, 2276-4, 3016-3, 23624-3 ####[facility] LABCLIA [id number] [place] [id number] [place] Calcium [Mass/Vol] 10.0 mg/dL Normal 8.5-10.2 [facility] Comment on above: Order Comment: Speci men Type: BLOOD SPECIMENOrdering Facility: [facility] Address: [address] [place] [address] Performed By: #### 5 0190-8, 6-4, 3016-3, 18779-8 ####[facility] LABCLIA [id number] [place] [address] [place] Chloride [Moles/Vol] 105 mmol/L Normal 98-107 [facility] Comment on above: Order Comment: Speci men Type: BLOOD SPECIMENOrdering Facility: [facility] Address: [address] [place], [place] [address] Performed By: #### 5 0190-8, 2276-4, 3016-3, 22007-5 ####[facility] LABCLIA [id number] [place] [id number] [place] CO2 [Moles/Vol] 24 mmol/L Normal 22-30 [facility] Comment on above: Order Comment: Speci men Type: BLOOD SPECIMENOrdering Facility: [facility] Address: [address] [place], [place] [address] Performed By: #### 5 0190-8, 2276-4, 3016-3, 21886-0 ####[facility] LABCLIA [id number] [place] [id number] [place] Creatinine [Mass/Vol] 1.36 mg/dL High 0.73-1.22 [facility] Comment on above: Order Comment: Deena mcnally Type: BLOOD SPECIMENOrdering Facility: [facility] Address: [address] [place] [address] Performed By: #### 5 0190-8, 2276-4, 3016-3, 65299-3 ####[facility] LABIA [id number] [place] [id number] [place] Creatinine and Glomerular filtration rate.predicted panel (S/P/Bld) 52 mL/min/1.73m??? Low >=60 [facility] Comment on above: Order Comment: Deena mcnally Type: BLOOD SPECIMENOrdering Facility: [facility] Address: [address] [place] [address] Result Comment: Myriam mated Glomerular Filtration Rate [...] Performed By: #### 5 0190-8, 6-4, 3016-3, 13354-8 ####[facility] LABIA [id number] [place] [id number] [place] Glucose [Mass/Vol] 93 mg/dL Normal 74-99 [facility] Comment on above: Order Comment: Deena dali Type: BLOOD SPECIMENOrdering Facility: [facility] Address: [address] [place] [address] Result Comment: The [place] Diabetes Association (ADA) provides guidance for cutoff [...] Standards of Medical Care in Diabetes 2016, [place] [employer] Association. Diabetes Care. 2016.39(Suppl 1). Performed By: #### 5 0190-8, 2276-4, 6-3, 71768-2 ####[facility] LABCLIA [id number] [place] [address] [place] Potassium [Moles/Vol] 4.0 mmol/L Normal 3.7-5.1 [facility] Comment on above: Order Comment: Speci men Type: BLOOD SPECIMENOrdering Facility: [facility] Address: [address] [place] [address] Performed By: #### 5 0190-8, 6-4, 3015-3, 67085-5 ####[facility] LABCLIA [id number] [place] [address] [place] Sodium [Moles/Vol] 143 mmol/L Normal 136-144 [facility] Comment on above: Order Comment: Deena mcnally Type: BLOOD SPECIMENOrdering Facility: [facility] Address: [address] [place] [address] Performed By: #### 5 0190-8, 6-4, 3015-3, 08435-1 ####[facility] LABCLIA [id number] [place] [id number] [place] Urea nitrogen [Mass/Vol] 29 mg/dL High 9-24 [facility] Comment on above: Order Comment: Somi men Type: BLOOD SPECIMENOrdering Facility: [facility] Address: [address] [place] [address] Performed By: #### 5 0190-8, 2276-4, 6-3, 65685-3 ####[facility] LABCLIA [id number] [address] [place] [address] [place] CBC W Auto Differential pane l (Bld)on 09-15-2024 Basophils (Bld) [#/Vol] 0.04 10*3/uL Normal <0.11 [facility] Comment on above: Order Comment: Speci men Type: BLOOD SPECIMENOrdering Facility: [facility] Address: [address] [place] [address] Performed By: #### 5 7021-8 ####[facility] LABCLIA [id number] [address], [facility] [place] Basophils/100 WBC (Bld) 0.5 % Normal [facility] Comment on above: Order Comment: Speci men Type: BLOOD SPECIMENOrdering Facility: [facility] Address: [address] [place] [address] Performed By: #### 5 7021-8 ####[facility] LABCLIA [id number] [address], [place] [address] [place] Differential cell count method Nom (Bld) Auto Normal [facility] Comment on above: Order Comment: Speci men Type: BLOOD SPECIMENOrdering Facility: [facility] Address: [address] [place] [address] Performed By: #### 5 7021-8 ####[facility] LABCLIA [id number] [address], [place] [address] [place] Eosinophils (Bld) [#/Vol] 0.11 10*3/uL Normal <0.46 [facility] Comment on above: Order Comment: Speci men Type: BLOOD SPECIMENOrdering Facility: [facility] Address: [address] [place] [address] Performed By: #### 5 7021-8 ####[facility] LABCLIA [id number] [address] [place] [address] [place] Eosinophils/100 WBC (Bld) 1.5 % Normal [facility] Comment on above: Order Comment: Speci men Type: BLOOD SPECIMENOrdering Facility: [facility] Address: [address] [place] [address] Performed By: #### 5 7021-8 ####[facility] LABIA [id number] [place] [address] [place] Erythrocyte distribution width (RBC) [Ratio] 14.3 % Normal 11.5-15.0 [facility] Comment on above: Order Comment: Speci men Type: BLOOD SPECIMENOrdering Facility: [facility] Address: [address] [place] [address] Performed By: #### 5 7021-8 ####[facility] LABIA [id number] [place] [address] [place] Hematocrit (Bld) [Volume fraction] 36.1 % Low 39.0-51.0 [facility] Comment on above: Order Comment: Speci men Type: BLOOD SPECIMENOrdering Facility: [facility] Address: [address] [place] [address] Performed By: #### 5 7021-8 ####[facility] LABIA [id number] [place] [address] [place] Hemoglobin (Bld) [Mass/Vol] 11.8 g/dL Low 13.0-17.0 [facility] Comment on above: Order Comment: Speci men Type: BLOOD SPECIMENOrdering Facility: [facility] Address: [address] [place] [address] Performed By: #### 5 7021-8 ####[facility] LABIA [id number] [place] [address] [place] Immature granulocytes (Bld) [#/Vol] 0.04 10*3/uL Normal <0.10 [facility] Comment on above: Order Comment: Speci men Type: BLOOD SPECIMENOrdering Facility: [facility] Address: [address] [place] [address] Performed By: #### 5 7021-8 ####[facility] LABCLIA [id number] [place] [address] [place] Immature granulocytes/100 WBC (Bld) 0.5 % Normal [facility] Comment on above: Order Comment: Speci men Type: BLOOD SPECIMENOrdering Facility: [facility] Address: [address] [place] [address] Performed By: #### 5 7021-8 ####[facility] LABCLIA [id number] [place] [address] [place] Lymphocytes (Bld) [#/Vol] 2.10 10*3/uL Normal 1.00-4.00 [facility] Comment on above: Order Comment: Speci men Type: BLOOD SPECIMENOrdering Facility: [facility] Address: [address] [place] [address] Performed By: #### 5 7021-8 ####[facility] LABIA [id number] [address] [place] Lymphocytes/100 WBC (Bld) 27.7 % Normal [facility] Comment on above: Order Comment: Speci men Type: BLOOD SPECIMENOrdering Facility: [facility] Address: [address] [place] [address] Performed By: #### 5 7021-8 ####[facility] LABIA [id number] [place] [address] [place] MCH (RBC) [Entitic mass] 29.6 pg Normal 26.0-34.0 [facility] Comment on above: Order Comment: Speci men Type: BLOOD SPECIMENOrdering Facility: [facility] Address: [address] [place] [address] Performed By: #### 5 7021-8 ####[facility] LABCLIA [id number] [place] [id number] [place] MCHC (RBC) [Mass/Vol] 32.7 g/dL Normal 30.5-36.0 [facility] Comment on above: Order Comment: Speci men Type: BLOOD SPECIMENOrdering Facility: [facility] Address: [address] [place] [address] Performed By: #### 5 7021-8 ####[facility] LABCLIA [id number] [place] [address] [place] MCV (RBC) [Entitic vol] 90.7 fL Normal 80.0-100.0 [facility] Comment on above: Order Comment: Speci men Type: BLOOD SPECIMENOrdering Facility: [facility] Address: [address] [place] [address] Performed By: #### 5 7021-8 ####[facility] LABCLIA [id number] [place] [address] [place] Monocytes (Bld) [#/Vol] 0.73 10*3/uL Normal <0.87 [facility] Comment on above: Order Comment: Speci men Type: BLOOD SPECIMENOrdering Facility: [facility] Address: [address] [place] [address] Performed By: #### 5 7021-8 ####[facility] LABCLIA [id number] [place] [address] [place] Monocytes/100 WBC (Bld) 9.6 % Normal [facility] Comment on above: Order Comment: Speci men Type: BLOOD SPECIMENOrdering Facility: [facility] Address: [address] [place] [address] Performed By: #### 5 7021-8 ####[facility] LABIA [id number] [place] [address] [place] Neutrophils (Bld) [#/Vol] 4.56 10*3/uL Normal 1.45-7.50 [facility] Comment on above: Order Comment: Speci men Type: BLOOD SPECIMENOrdering Facility: [facility] Address: [address] [place], [place] [address] Performed By: #### 5 7021-8 ####[facility] LABCLIA [id number] [place] [address] [place] Neutrophils/100 WBC (Bld) 60.2 % Normal [facility] Comment on above: Order Comment: Speci men Type: BLOOD SPECIMENOrdering Facility: [facility] Address: [address] [place] [address] Performed By: #### 5 7021-8 ####[facility] LABCLIA [id number] [place] [address] [place] Nucleated RBC (Bld) [#/Vol] 10*3/uL Normal <0.01 [facility] Comment on above: Order Comment: Speci men Type: BLOOD SPECIMENOrdering Facility: [facility] Address: [address] [place] [address] Performed By: #### 5 7021-8 ####[facility] LABIA [id number] [place] [address] [place] Nucleated RBC/100 WBC (Bld) [Ratio] 0.0 /100 WBC Normal [facility] Comment on above: Order Comment: Speci men Type: BLOOD SPECIMENOrdering Facility: [facility] Address: [address] [place] [address] Performed By: #### 5 7021-8 ####[facility] LABIA [id number] [place] [address] [place] Platelet mean volume (Bld) [Entitic vol] 11.4 fL Normal 9.0-12.7 [facility] Comment on above: Order Comment: Speci men Type: BLOOD SPECIMENOrdering Facility: [facility] Address: [address] [place] [address] Performed By: #### 5 7021-8 ####[facility] LABIA [id number] [id number] [address] [place] Platelets (Bld) [#/Vol] 255 10*3/uL Normal 150-400 [facility] Comment on above: Order Comment: Speci men Type: BLOOD SPECIMENOrdering Facility: [facility] Address: [address] [place] [address] Performed By: #### 5 7021-8 ####[facility] LABIA [id number] [place] [address] [place] RBC (Bld) [#/Vol] 3.98 10*6/uL Low 4.20-6.00 [facility] Comment on above: Order Comment: Speci men Type: BLOOD SPECIMENOrdering Facility: [facility] Address: [address] [place] [address] Performed By: #### 5 7021-8 ####[facility] LABIA [id number] [place] [address] [place] WBC (Bld) [#/Vol] 7.58 10*3/uL Normal 3.70-11.00 [facility] Comment on above: Order Comment: Speci men Type: BLOOD SPECIMENOrdering Facility: [facility] Address: [address] [place] [address] Performed By: #### 5 7021-8 ####[facility] LABIA [id number] [address] [place] CNOVon 09-15-2024 CNOV Office Visit (PADMINIWS) JEAN-CLAUDE DOUGLAS ([id number]) 1940 M Date Time Provider Department 09/15/24 2:20 PM [facility] During your visit today, we recorded the following information about you: Pulse Blood pressure Weight 76/minute 128/80 68.5 kg Kb Lackey MD 09/15/2024 2:42 PM Signed - Continue taking your zotj-ypz-bbihbiu iron supplement as directed. - Complete the blood tests ordered today (CBC, iron level, and ferritin). - Schedule and attend a urology appointment at the [facility] to evaluate the blood in your urine. - Schedule and attend gastroenterology appointments at the [facility] for an EGD and colonoscopy to [...] fingerstick machine. - Follow-up with Dr. Kemp, surveyor geodetic, on 11/22. MEDICATIONS: Current Outpatient Medications Medication [...] iron) tablet Take 325 mg by mouth. mv,iron,nsd-VV-sgvck ry cmb.24 400 mcg tab Take 1 [...] MAINTENANCE: Review (more content not included)... Normal [facility] Ferritin SerPl-mCncon 2024 Ferritin [Mass/Vol] 162.0 ng/mL Normal 30.3-565.7 [facility] Comment on above: Order Comment: Speci men Type: BLOOD SPECIMENOrdering Facility: [facility] Address: [address] [place] [address] Performed By: #### 5 0190-8, 2276-4, 3016-3, 20517-7 ####[facility] LABIA [id number] [place] [id number] [place] Iron and Iron binding capaci ty panel 09-15-2024 Iron [Mass/Vol] 96 ug/dL Normal 41-186 [facility] Comment on above: Order Comment: Speci men Type: BLOOD SPECIMENOrdering Facility: [facility] Address: [address] [place] [address] Performed By: #### 5 0190-8, 2276-4, 3016-3, 38245-1 ####[facility] LABIA [id number] [place] [id number] [place] Iron binding capacity [Mass/Vol] 289 ug/dL Normal 232-386 [facility] Comment on above: Order Comment: Speci men Type: BLOOD SPECIMENOrdering Facility: [facility] Address: [address] [place] [address] Performed By: #### 5 0190-8, 2276-4, 3016-3, 64928-7 ####[facility] LABIA [id number] [place] [id number] [place] Iron/TIBC [Molar ratio] 33.2 % Normal 15.0-57.0 [facility] Comment on above: Order Comment: Speci men Type: BLOOD SPECIMENOrdering Facility: [facility] Address: [address] [place] [address] Performed By: #### 5 0190-8, 2276-4, 3016-3, 75683-1 ####[facility] LABIA [id number] [place] [id number] [place] TSH SerPl-aCncon 09-15-2024 TSH Qn 4.100 m[IU]/L Normal 0.270-4.200 [facility] Comment on above: Order Comment: Speci men Type: BLOOD SPECIMENOrdering Facility: [facility] Address: [address] [place] [address] Performed By: #### 5 0190-8, 2276-4, 3016-3, 07016-0 ####[facility] LABIA [id number] [place] [id number] [place] Hemoccult Stl Ql IAon 2024 Lower GI hemoglobin IA Ql (Stl) Negative Normal Negative [facility] Comment on above: Order Comment: Speci men Type: STOOL SPECIMENOrdering Facility: [facility] Address: [address] [place] [address] Performed By: #### 2 9771-3 ####[facility] [id number] [place] [id number] [place] [facility]NP[facility]-09-[facility] JEAN-CLAUDE DOUGLAS ([id number]) 1940 M Date Time Provider Department 08/09/24 [...] Diagnosis:Microscopi c hematuria [R31.29] Order(s):CONSULT TO UROLOGY [9099] Order #: [id number]: 1 FUTURE CONSULT TO GENERAL SURGERY [2302] Order #: [id number]: 1 FUTURE IMMUNOCHEMICAL FECAL OCCULT BLOOD TEST [SQIFOBT] Order #: [id number]. #:[id number] COMPLETE BLOOD COUNT AND DIFFERENTIAL [SQCBCDIF] Order #: [id number] FUTURE IRON AND TIBC [SQIRON] Order #: [id number] FUTURE FERRITIN [SQFERR] Order #: [id number] FUTURE nystatin (MYCOSTATIN) creamApply to affected area [...] tablet Take 325 mg by mouth. - mv,iron,evy-GD-kmnub ry cmb.24 400 mcg tab Take 1 [...] Status:Closed by SALOMON ASHBY on 08/09/24 Normal [facility] Bacteria Ur Culton Bacteria identified Cx Nom (U) CULTURE, URINE: No growth (<1,000 CFU/ml) Normal [facility] Comment on above: Performed By: #### 6 30-4 ####[facility] LABIA [id number] [place] [address] [place] Basic metabolic 2000 panelon 08-06-2024 Anion gap [Moles/Vol] 13 mmol/L Normal 8-15 [facility] Comment on above: Order Comment: Speci men Type: BLOOD SPECIMENOrdering Facility: [facility] Address: [address] [place] [address] Performed By: #### 2 4321-2, 87654-6, 2276-4 ####[facility] [id number] [place] [address] [place] Calcium [Mass/Vol] 9.5 mg/dL Normal 8.5-10.2 [facility] Comment on above: Order Comment: Speci men Type: BLOOD SPECIMENOrdering Facility: [facility] Address: [address] [place] [address] Performed By: #### 2 4321-2, 42184-5, 6-4 ####[facility] LABCLIA [id number] [place] [id number] [place] Chloride [Moles/Vol] 103 mmol/L Normal 98-107 [facility] Comment on above: Order Comment: Speci men Type: BLOOD SPECIMENOrdering Facility: [facility] Address: [address] [place] [address] Performed By: #### 2 4321-2, 49254-6, 6-4 ####[facility] LABIA [id number] [place] [address] [place] CO2 [Moles/Vol] 22 mmol/L Normal 22-30 [facility] Comment on above: Order Comment: Speci men Type: BLOOD SPECIMENOrdering Facility: [facility] Address: [address] [place] [address] Performed By: #### 2 4321-2, 70668-1, 2275-4 ####[facility] LABIA [id number] [place] [address] [place] Creatinine [Mass/Vol] 1.52 mg/dL High 0.73-1.22 [facility] Comment on above: Order Comment: Speci men Type: BLOOD SPECIMENOrdering Facility: [facility] Address: [address] [place] [address] Performed By: #### 2 4321-2, 60175-8, 6-4 ####[facility] LABIA [id number] [place] [id number] [place] Creatinine and Glomerular filtration rate.predicted panel (S/P/Bld) 46 mL/min/1.73m??? Low >=60 [facility] Comment on above: Order Comment: Speci men Type: BLOOD SPECIMENOrdering Facility: [facility] Address: [address] [place] [address] Result Comment: Myriam mated Glomerular Filtration Rate [...] actual GFR. Performed By: #### 2 4321-2, 19221-2, 4 ####[facility] LABIA [id number] [address] [address] [place] Glucose [Mass/Vol] 323 mg/dL High 74-99 [facility] Comment on above: Order Comment: Spechenrik mcnally Type: BLOOD SPECIMENOrdering Facility: [facility] Address: [address] [place] [address] Result Comment: The [place] Diabetes Association (ADA) provides guidance for cutoff [...] Standards of Medical Care in Diabetes 2016, [place] [employer]. Diabetes Care. 2016.39(Suppl 1). Performed By: #### 2 4321-2, 78882-4, 2275-07 ####[facility] LABIA [id number] [address] [address] [place] Potassium [Moles/Vol] 4.1 mmol/L Normal 3.7-5.1 [facility] Comment on above: Order Comment: Somi men Type: BLOOD SPECIMENOrdering Facility: [facility] Address: [address] [place] [id number] Performed By: #### 2 4321-2, 34269-5, 2275-4 ####[facility] LABCLIA [id number] [address] [address] [place] Sodium [Moles/Vol] 138 mmol/L Normal 136-144 [facility] Comment on above: Order Comment: Speci men Type: BLOOD SPECIMENOrdering Facility: [facility] Address: [address] [place] [address] Performed By: #### 2 4321-2, 06106-5, 2275-07 ####[facility] LABCLIA [id number] [place] [id number] [place] Urea nitrogen [Mass/Vol] 28 mg/dL High 9-24 [facility] Comment on above: Order Comment: Speci men Type: BLOOD SPECIMENOrdering Facility: [facility] Address: [address] [place] [address] Performed By: #### 2 4321-2, 61126-9, 2275-07 ####[facility] LABIA [id number] [place] [id number] [place] CBC W Auto Differential pane l (Bld)on 08-06-2024 Basophils (Bld) [#/Vol] 0.04 10*3/uL Normal <0.11 [facility] Comment on above: Order Comment: Speci men Type: BLOOD SPECIMENOrdering Facility: [facility] Address: [address] [place] [address] Performed By: #### 5 7021-8 ####[facility] LABCLIA [id number] [address] [address] [place] Basophils/100 WBC (Bld) 0.5 % Normal C [facility] Comment on above: Order Comment: Speci men Type: BLOOD SPECIMENOrdering Facility: [facility] Address: [address] [place] [address] Performed By: #### 5 7021-8 ####[facility] LABCLIA [id number] [place] [address] [place] Differential cell count method Nom (Bld) Auto Normal [facility] Comment on above: Order Comment: Speci men Type: BLOOD SPECIMENOrdering Facility: [facility] Address: [address] [place] [address] Performed By: #### 5 7021-8 ####[facility] LABCLIA [id number] [place] [address] [place] Eosinophils (Bld) [#/Vol] 0.10 10*3/uL Normal <0.46 [facility] Comment on above: Order Comment: Speci men Type: BLOOD SPECIMENOrdering Facility: [facility] Address: [address] [place] [address] Performed By: #### 5 7021-8 ####[facility] LABCLIA [id number] [place] [address] [place] Eosinophils/100 WBC (Bld) 1.2 % Normal [facility] Comment on above: Order Comment: Speci men Type: BLOOD SPECIMENOrdering Facility: [facility] Address: [address] [place] [address] Performed By: #### 5 7021-8 ####[facility] LABCLIA [id number] [place] [address] [place] Erythrocyte distribution width (RBC) [Ratio] 13.1 % Normal 11.5-15.0 [facility] Comment on above: Order Comment: Speci men Type: BLOOD SPECIMENOrdering Facility: [facility] Address: [address] [place] [address] Performed By: #### 5 7021-8 ####[facility] LABCLIA [id number] [place] [address] [place] Hematocrit (Bld) [Volume fraction] 37.4 % Low 39.0-51.0 [facility] Comment on above: Order Comment: Speci men Type: BLOOD SPECIMENOrdering Facility: [facility] Address: [address] [place] [address] Performed By: #### 5 7021-8 ####[facility] LABCLIA [id number] [place] [address] [place] Hemoglobin (Bld) [Mass/Vol] 11.8 g/dL Low 13.0-17.0 [facility] Comment on above: Order Comment: Speci men Type: BLOOD SPECIMENOrdering Facility: [facility] Address: [address] [place] [address] Performed By: #### 5 7021-8 ####[facility] LABCLIA [id number] [place] [address] [place] Immature granulocytes (Bld) [#/Vol] 0.04 10*3/uL Normal <0.10 [facility] Comment on above: Order Comment: Speci men Type: BLOOD SPECIMENOrdering Facility: [facility] Address: [address] [place] [address] Performed By: #### 5 7021-8 ####[facility] LABCLIA [id number] [place] [address] [place] Immature granulocytes/100 WBC (Bld) 0.5 % Normal [facility] Comment on above: Order Comment: Speci men Type: BLOOD SPECIMENOrdering Facility: [facility] Address: [address] [place] [address] Performed By: #### 5 7021-8 ####[facility] LABCLIA [id number] [place] [address] [place] Lymphocytes (Bld) [#/Vol] 1.61 10*3/uL Normal 1.00-4.00 [facility] Comment on above: Order Comment: Speci men Type: BLOOD SPECIMENOrdering Facility: [facility] Address: [address] [place] [address] Performed By: #### 5 7021-8 ####[facility] LABCLIA [id number] [place] [address] [place] Lymphocytes/100 WBC (Bld) 19.2 % Normal [facility] Comment on above: Order Comment: Speci men Type: BLOOD SPECIMENOrdering Facility: [facility] Address: [address] [place] [address] Performed By: #### 5 7021-8 ####[facility] LABCLIA [id number] [place] [address] [place] MCH (RBC) [Entitic mass] 29.0 pg Normal 26.0-34.0 [facility] Comment on above: Order Comment: Speci men Type: BLOOD SPECIMENOrdering Facility: [facility] Address: [address] [place] [address] Performed By: #### 5 7021-8 ####[facility] LABCLIA [id number] [place] [address] [place] MCHC (RBC) [Mass/Vol] 31.6 g/dL Normal 30.5-36.0 [facility] Comment on above: Order Comment: Speci men Type: BLOOD SPECIMENOrdering Facility: [facility] Address: [address] [place] [address] Performed By: #### 5 7021-8 ####[facility] LABIA [id number] [place] [address] [place] MCV (RBC) [Entitic vol] 91.9 fL Normal 80.0-100.0 C [facility] Comment on above: Order Comment: Speci men Type: BLOOD SPECIMENOrdering Facility: [facility] Address: [address] [place] [address] Performed By: #### 5 7021-8 ####[facility] LABCLIA [id number] [place] [address] [place] Monocytes (Bld) [#/Vol] 0.53 10*3/uL Normal <0.87 [facility] Comment on above: Order Comment: Speci men Type: BLOOD SPECIMENOrdering Facility: [facility] Address: [address] [place] [address] Performed By: #### 5 7021-8 ####[facility] LABCLIA [id number] [address] [address] [place] Monocytes/100 WBC (Bld) 6.3 % Normal [facility] Comment on above: Order Comment: Speci men Type: BLOOD SPECIMENOrdering Facility: [facility] Address: [address] [place] [address] Performed By: #### 5 7021-8 ####[facility] LABCLIA [id number] [place] [address] [place] Neutrophils (Bld) [#/Vol] 6.05 10*3/uL Normal 1.45-7.50 [facility] Comment on above: Order Comment: Speci men Type: BLOOD SPECIMENOrdering Facility: [facility] Address: [address] [place] [address] Performed By: #### 5 7021-8 ####[facility] LABCLIA [id number] [place] [address] [place] Neutrophils/100 WBC (Bld) 72.3 % Normal [facility] Comment on above: Order Comment: Speci men Type: BLOOD SPECIMENOrdering Facility: [facility] Address: [address] [place] [address] Performed By: #### 5 7021-8 ####[facility] LABCLIA [id number] [place] [id number] [place] Nucleated RBC (Bld) [#/Vol] 10*3/uL Normal <0.01 [facility] Comment on above: Order Comment: Speci men Type: BLOOD SPECIMENOrdering Facility: [facility] Address: [address] [place] [address] Performed By: #### 5 7021-8 ####[facility] LABCLIA [id number] [place] [address] [place] Nucleated RBC/100 WBC (Bld) [Ratio] 0.0 /100 WBC Normal [facility] Comment on above: Order Comment: Speci men Type: BLOOD SPECIMENOrdering Facility: [facility] Address: [address] [place] [address] Performed By: #### 5 7021-8 ####[facility] LABCLIA [id number] [place] [address] [place] Platelet mean volume (Bld) [Entitic vol] 11.4 fL Normal 9.0-12.7 [facility] Comment on above: Order Comment: Speci men Type: BLOOD SPECIMENOrdering Facility: [facility] Address: [address] [place] [address] Performed By: #### 5 7021-8 ####[facility] LABIA [id number] [place] [address] [place] Platelets (Bld) [#/Vol] 343 10*3/uL Normal 150-400 [facility] Comment on above: Order Comment: Speci men Type: BLOOD SPECIMENOrdering Facility: [facility] Address: [address] [place] [address] Performed By: #### 5 7021-8 ####[facility] LABCLIA [id number] [place] [address] [place] RBC (Bld) [#/Vol] 4.07 10*6/uL Low 4.20-6.00 [facility] Comment on above: Order Comment: Speci men Type: BLOOD SPECIMENOrdering Facility: [facility] Address: [address] [place] [address] Performed By: #### 5 7021-8 ####[facility] LABCLIA [id number] [place] [address] [place] WBC (Bld) [#/Vol] 8.37 10*3/uL Normal 3.70-11.00 [facility] Comment on above: Order Comment: Speci men Type: BLOOD SPECIMENOrdering Facility: [facility] Address: [address] [place] [address] Performed By: #### 5 7021-8 ####[facility] LABCLIA [id number] [address] Ferritin [facility] 2024 Ferritin [Mass/Vol] 139.0 ng/mL Normal 30.3-565.7 [facility] Comment on above: Order Comment: Speci men Type: BLOOD SPECIMENOrdering Facility: [facility] Address: [address] [place] [address] Performed By: #### 2 4321-2, 00181-6, 2276-4 ####[facility] LABCLIA [id number] [place] [address] [place] Folate SerPl-ncon 08-07-19 25 Folate [Mass/Vol] 8.8 ng/mL Normal >4.7 [facility] Comment on above: Order Comment: Speci men Type: BLOOD SPECIMENOrdering Facility: [facility] Address: [address] [place] [address] Performed By: #### 2 284-8, 2132-9 ####[facility] LABCLIA [id number] [place] [address] [place] Iron and Iron binding capaci panelon 08-06-2024 Iron [Mass/Vol] 93 ug/dL Normal 41-186 [facility] Comment on above: Order Comment: Speci men Type: BLOOD SPECIMENOrdering Facility: [facility] Address: [address] [place] [address] Performed By: #### 2 4321-2, 09743-6, 2276-4 ####[facility] LABCLIA [id number] [place] [address] [place] Iron binding capacity [Mass/Vol] 278 ug/dL Normal 232-386 [facility] Comment on above: Order Comment: Speci men Type: BLOOD SPECIMENOrdering Facility: [facility] Address: [address] [place] [address] Performed By: #### 2 4321-2, 55929-8, 6-4 ####[facility] LABCLIA [id number] [address] [place] Iron/TIBC [Molar ratio] 33.5 % Normal 15.0-57.0 C [facility] Comment on above: Order Comment: Speci men Type: BLOOD SPECIMENOrdering Facility: [facility] Address: [address] [place] [address] Performed By: #### 2 4321-2, 18974-7, 2275-4 ####[facility] LABIA [id number] [address] [place] Urinalysis complete panel (U )on 08-06-2024 Bacteria LM.HPF (Urine sed) [#/Area] Negative Normal Negative [facility] Comment on above: Order Comment: Speci men Type: URINE SPECIMENOrdering Facility: [facility] Address: [address] [place] [address] Performed By: #### 2 4356-8 ####[facility] LABIA [id number] [place] [address] [place] Bilirubin Ql (U) Negative Normal Negative [facility] Comment on above: Order Comment: Speci men Type: URINE SPECIMENOrdering Facility: [facility] Address: [address] [place] [address] Performed By: #### 2 4356-8 ####[facility] LABCLIA [id number] [place] [id number] [place] Clarity (Unsp spec) Clear Normal Clear [facility] Comment on above: Order Comment: Speci men Type: URINE SPECIMENOrdering Facility: [facility] Address: [address] [place] [address] Performed By: #### 2 4356-8 ####[facility] LABCLIA [id number] [place] [address] [place] Color (U) Yellow Normal Yellow [facility] Comment on above: Order Comment: Speci men Type: URINE SPECIMENOrdering Facility: [facility] Address: [address] [place] [address] Performed By: #### 2 4356-8 ####[facility] LABCLIA [id number] [place] [address] [place] Epithelial cells LM.HPF (Urine sed) [#/Area] None Seen Normal [facility] Comment on above: Order Comment: Speci men Type: URINE SPECIMENOrdering Facility: [facility] Address: [address] [place] [address] Performed By: #### 2 4356-8 ####[facility] LABCLIA [id number] [place] [address] [place] Glucose Test strip (U) [Mass/Vol] 3+ Abnormal Negative [facility] Comment on above: Order Comment: Speci men Type: URINE SPECIMENOrdering Facility: [facility] Address: [address] [place] [address] Performed By: #### 2 4356-8 ####[facility] LABCLIA [id number] [place] [address] [place] Hemoglobin Ql (U) 2+ Abnormal Negative [facility] Comment on above: Order Comment: Speci men Type: URINE SPECIMENOrdering Facility: [facility] Address: [address] [place] [address] Performed By: #### 2 4356-8 ####[facility] LABCLIA [id number] [place] [id number] [place] Hyaline casts (Urine sed) [#/Area] 1-3 /LPF Abnormal 0 /LPF [facility] Comment on above: Order Comment: Speci men Type: URINE SPECIMENOrdering Facility: [facility] Address: [address] [place] [address] Performed By: #### 2 4356-8 ####[facility] LABCLIA [id number] [facility] [address] [place] [address] [place] Ketones Ql (U) Trace Abnormal Negative [facility] Comment on above: Order Comment: Speci men Type: URINE SPECIMENOrdering Facility: [facility] Address: [address] [place] [address] Performed By: #### 2 4356-8 ####[facility] LABCLIA [id number] [facility] [address] [place] [address] [place] Leukocyte esterase Test strip Ql (U) Negative Normal Negative [facility] Comment on above: Order Comment: Speci men Type: URINE SPECIMENOrdering Facility: [facility] Address: [address] [place] [address] Performed By: #### 2 4356-8 ####[facility] LABCLIA [id number] [facility] [address] [place] [address] [place] Nitrite Ql (U) Negative Normal Negative [facility] Comment on above: Order Comment: Speci men Type: URINE SPECIMENOrdering Facility: [facility] Address: [address] [place] [address] Performed By: #### 2 4356-8 ####[facility] LABCLIA [id number] [facility] [address] [place] [address] [place] pH (U) 5.5 [pH] Normal <8.5 [facility] Comment on above: Order Comment: Speci men Type: URINE SPECIMENOrdering Facility: [facility] Address: [address] [place] [address] Performed By: #### 2 4356-8 ####[facility] LABCLIA [id number] [place] [address] [place] Protein (U) [Mass/Vol] Negative Normal Negative [facility] Comment on above: Order Comment: Speci men Type: URINE SPECIMENOrdering Facility: [facility] Address: [address] [place] [address] Performed By: #### 2 4356-8 ####[facility] LABIA [id number] [place] [address] [place] RBC LM.HPF (Urine sed) [#/Area] 6-10 /HPF Abnormal 0-2 /HPF [facility] Comment on above: Order Comment: Speci men Type: URINE SPECIMENOrdering Facility: [facility] Address: [address] [place] [address] Performed By: #### 2 4356-8 ####[facility] LABIA [id number] [place] [address] [place] Specific gravity (U) [Rel density] 1.025 Normal 1.005-1.030 [facility] Comment on above: Order Comment: Speci men Type: URINE SPECIMENOrdering Facility: [facility] Address: [address] [place] [address] Performed By: #### 2 4356-8 ####[facility] LABIA [id number] [address] [place] Urobilinogen Ql (U) 0.2 EU/dL Normal 0.2-1.0 EU/dL [facility] Comment on above: Order Comment: Speci men Type: URINE SPECIMENOrdering Facility: [facility] Address: [address] [place] [address] Performed By: #### 2 4356-8 ####[facility] LABIA [id number] [place] [address] [place] WBC LM.HPF (Urine sed) [#/Area] 0-5 /HPF Normal 0-5 /HPF [facility] Comment on above: Order Comment: Speci men Type: URINE SPECIMENOrdering Facility: [facility] Address: [address] [place] [address] Performed By: #### 2 4356-8 ####[facility] [id number] [place] [address] [place] Yeast.budding LM.HPF (Urine sed) [#/Area] Present Abnormal None Seen [facility] Comment on above: Order Comment: Speci men Type: URINE SPECIMENOrdering Facility: [facility] Address: [address] [place] [address] Performed By: #### 2 4356-8 ####[facility] [id number] [place] [address] [place] Vit B12 SerPl-ncon 05-02-2 025 Cobalamin (Vitamin B12) [Mass/Vol] 876 pg/mL Normal 232-1245 [facility] Comment on above: Order Comment: Speci men Type: BLOOD SPECIMENOrdering Facility: [facility] Address: [address] [place] [address] Performed By: #### 2 284-8, 2132-9 ####[facility] [id number] [address] [place] CNOVon 08-03-2024 CNOV Office Visit (FAMPWS) JEAN-CLAUDE DOUGLAS ([id number]) 1940 Bet[place] Date Time Provider Department 08/03/24 10:00 AM KB ALCKEY During your visit today, we recorded the following information about you: Pulse Blood pressure Weight Height 68/minute 113/63 68.5 kg 1.778 m Kb Lackey MD 08/03/2024 10:24 AM Signed Patient presents with: Hospital F/U HPI: Patient presents today for office visit for HOSPITAL/ER FOLLOW UP: Reason for visit: low blood sugar levels and increased confusion. Which facility: [facility] Date of visit: 07/26/24-07/28/24 Diagnosis: Acute Cystitis [...] two times a day with meals. Per [facility] 24 units every morning and 10 units qhs ferrous sulfate 325 mg (65 mg iron) tablet Take 325 mg by mouth. mv,iron,hpf-DB-yssue ry cmb.24 400 mcg tab Take 1 [...] lesions He (more content not included)... Normal [facility] Endocrinology Visit Reporton 08-03-2024 Endocrinology Visit Report [facility] [address] [place] [address] OFFICE VISIT Date of Service: 08/03/24 MR#: [id number] Acct: [id number] Name: JEAN-CLAUDE DOUGLAS Rep #: [id number] : 1940 Provider: Betsey Garcia Age/Sex: 83/M [place] [facility] [place]: Signed Intake Vital Signs 06/22/24 11:23 [...] noted Neuro (more content not included)... Normal [facility] Anion gap in Serum or Plasma Ordered By: Dennys Buenrostro on 07-28-2024 Anion gap [Moles/Vol] 15 mmol/L 5-15 [facility] BUN/creatinine ratioOrdered By: Dennys Buenrostro on 07-28-2024 Urea nitrogen/Creatinine [Mass ratio] 23.0 mg/mg High - [facility] Basic Metabolic Profile (BMP )on 07-28-2024 BUN/CRE 23.0 RATIO High 01-24 [facility] Comment on above: Performed By: #### L 501.2300, L500.2500 #### [facility] [address] [facility] [address] Calcium [Mass/Vol] 8.9 mg/dL Normal 7.6-11.0 [facility] Comment on above: Performed By: #### L 501.2300, L500.2500 #### [facility] [address] [facility] [address] Chloride [Moles/Vol] 106 mmol/L Normal 98-108 [facility] Comment on above: Performed By: #### L 501.2300, L500.2500 #### [facility] [address] [place], [address] CO2 [Moles/Vol] 19.0 mmol/L Low 21.0-32.0 [facility] Comment on above: Performed By: #### L 501.2300, L500.2500 #### [facility] [address] [place], [address] Creatinine [Mass/Vol] 1.34 mg/dL High 0.70-1.20 [facility] Comment on above: Performed By: #### L 501.2300, L500.2500 #### [facility] [address] [place], [place], [id number] ECRCL 41.40 ml/min Low 50-250 [facility] Comment on above: Performed By: #### L 501.2300, L500.2500 #### [facility] [address] [place], [address] GAP 15 Normal 5-15 [facility] Comment on above: Performed By: #### L 501.2300, L500.2500 #### [facility] [address] [place], [address] GFR/1.73 sq M.predicted among non-blacks MDRD (S/P/Bld) [Vol rate/Area] 53 mL/min/{1.73_m2} Low >60 [facility] Comment on above: Result Comment: mL/m in/1.73m2 CKD-EPI Creatinine Equation (2020) Performed By: #### L 501.2300, L500.2500 #### [facility] [address] [place], [address] Glucose [Mass/Vol] 159 mg/dL High 70-99 [facility] Comment on above: Performed By: #### L 501.2300, L500.2500 #### [facility] [address] [place], [address] Potassium [Moles/Vol] 3.9 mmol/L Normal 3.3-5.1 [facility] Comment on above: Performed By: #### L 501.2300, L500.2500 #### [facility] [address] [place], [address] Sodium [Moles/Vol] 140 mmol/L Normal 133-145 [facility] Comment on above: Performed By: #### L 501.2300, L500.2500 #### [facility] [address] [place], [address] Urea nitrogen [Mass/Vol] 31 mg/dL High 4-19 [facility] Comment on above: Performed By: #### L 501.2300, L500.2500 #### [facility] [address] [place], [address] Bedside Glucoseon 07-28-2024 FINGERSTICK GLU 364 mg/dL High 74-106 [facility] Comment on above: Result Comment: GENO GEMENT OF PATIENT CARE PER NURSING PROTOCOL Performed By: #### L 500.4050, L501.2300, L100.0100 #### [facility] [address] [place], [address] FINGERSTICK GLU 147 mg/dL High 74-106 [facility] Comment on above: Result Comment: GENO GEMENT OF PATIENT CARE PER NURSING PROTOCOL Performed By: #### L 500.4050, L501.2300, L100.0100 #### [facility] [address] [place], [address] Carbon dioxide, total [Moles /volume] in Central venous bloodOrdered By: Dennys Buenrostro on 07-28-2024 CO2 [Moles/Vol] 19.0 mmol/L Low 21.0-32.0 [facility] Chloride assayOrdered By: Curt Buenrostro on 07-28-2024 Chloride [Moles/Vol] 106 mmol/L 98-108 [facility] Discharge Instructionon 07-07 Discharge Instruction [facility] Medical Records Department [address] [place] [address] Instructions for Home/Discharge Instructions 07/28/24 1346 MR#: [id number] Acct: [id number] Name: JEAN-CLAUDE DOUGLAS Rep #: [id number] : 1940 83 From: Dennys Buenrostro DO [...] DO CC: Dr. Michael House DO; Dr. Kb Lackey MD Signed Normal [facility] Glomerular filtration rate ( GFR) estimation/1.73 sq m using serum, plasma, or whole bOrdered By: Dennys Buenrostro on 07-28-2024 GFR/1.73 sq M.predicted among non-blacks MDRD (S/P/Bld) [Vol rate/Area] 53 mL/min/{1.73_m2} Low >60 [facility] Comment on above: mL/min/1.73m2 CKD-EP I Creatinine Equation (2020) [facility] deOrdered By: Dennys Buenrostro on 07-28-2024 Glucose [Mass/Vol] 364 mg/dL High 74-106 [facility] Comment on above: MANAGEMENT OF PATIEN T CARE PER NURSING PROTOCOL Phosphoruson 07-28-2024 Phosphate [Mass/Vol] 2.8 mg/dL Normal 2.7-4.5 [facility] Comment on above: Performed By: #### L 501.2300, L500.2500 #### [facility] [address] [place], [place] [address]all [facility] [place], [place], [address] Potassium measurement (mass/ volume)Ordered By: Dennys Buenrostro on 07-28-2024 Potassium (Unsp spec) [Mass/Vol] 3.9 mmol/L 3.3-5.1 [facility] Serum creatinine measurement (mass/volume)Ordered By: Dennys Buenrostro on 07-28-2024 Creatinine [Mass/Vol] 1.34 mg/dL High 0.70-1.20 [facility] Serum glucose measurement (m ass/volume)Ordered By: Dennys Buenrostro on 07-28-2024 Glucose [Mass/Vol] 159 mg/dL High 70-99 [facility] Serum or plasma calcium lio urement (mass/volume)Ordered By: Dennys Buenrostro on 07-28-2024 Calcium [Mass/Vol] 8.9 mg/dL 7.6-11.0 [facility] Serum or plasma urea nitroge n measurement (mass/volume)Ordered By: Dennys Buenrostro on 07-28-2024 Urea nitrogen [Mass/Vol] 31 mg/dL High 4-19 [facility] Sodium levelOrdered By: Dennys Buenrostro on 07-28-2024 Sodium [Moles/Vol] 140 mmol/L 133-145 [facility] Absolute lymphocyte countOrd ered By: Michael Mercer on 07-27-2024 Lymphocytes Auto (Unsp spec) [#/Vol] 1.66 10*3/uL 0.83-4.51 [facility] Absolute neutrophil countOrd ered By: Michael Mercer on 07-27-2024 Neutrophils (Bld) [#/Vol] 5.9 10*3/uL 2.0-7.7 [facility] Automated lymphocyte count a s percentage of total leukocytesOrdered By: Michael Mercer on 07-27-2024 Lymphocytes/100 WBC Auto (Unsp spec) 19.1 % 19-41 [facility] Basophil percentageOrdered B y: Michael Mercer on 07-27-2024 Basophils/100 WBC (Bld) 0.3 % 0-1 [facility] Bedside Glucoseon 07-27-2024 FINGERSTICK GLU 106 mg/dL Normal 74-106 [facility] Comment on above: Result Comment: GENO GEMENT OF PATIENT CARE PER NURSING PROTOCOL Performed By: #### L 500.4050, L501.2300, L100.0100 #### [facility] [address] [facility] [address] FINGERSTICK GLU 325 mg/dL High [address] [place] [address] Comment on above: Result Comment: GENO GEMENT OF PATIENT CARE PER NURSING PROTOCOL Performed By: #### L 501.2300, L500.2500 #### [facility] [address] [facility] [address] FINGERSTICK GLU 404 mg/dL High [address] Comment on above: Result Comment: GENO GEMENT OF PATIENT CARE PER NURSING PROTOCOL Performed By: #### L 501.2300, L500.2500 #### [facility] [address] [place], [address] FINGERSTICK GLU 432 mg/dL High [address] [place] [address] Comment on above: Result Comment: GENO GEMENT OF PATIENT CARE PER NURSING PROTOCOL Performed By: #### L 501.2300, L500.2500 #### [facility] [address] [place], [address] FINGERSTICK GLU 455 mg/dL Invalid Interpretation Code [address] [place] [address] Comment on above: Result Comment: GENO GEMENT OF PATIENT CARE PER NURSING PROTOCOL Performed By: #### L 501.2300, L500.2500 #### [facility] [address] [place], [address] FINGERSTICK GLU 259 mg/dL High [address] [place] [address] Comment on above: Result Comment: GENO GEMENT OF PATIENT CARE PER NURSING PROTOCOL Performed By: #### L 501.080 #### [facility] [address] [place], [address] FINGERSTICK GLU 396 mg/dL High [address] [place] [address] Comment on above: Result Comment: GENO GEMENT OF PATIENT CARE PER NURSING PROTOCOL Performed By: #### L 501.2300, L500.2500 #### [facility] [address] [place], [address] Bilirubin, totalOrdered By: Michael Mercer on 07-27-2024 Bilirubin [Mass/Vol] 0.43 mg/dL 0.00-1.30 [facility] CBC W/Diff, Automatedon 07-07 Absolute Lymph 1.66 X10 3/uL Normal 0.83-4.51 [facility] Comment on above: Performed By: #### L 500.4050, L501.2300, L100.0100 #### [facility] [address] [place], [address] Absolute Neut 5.9 X10 3/uL Normal 2.0-7.7 [facility] Comment on above: Performed By: #### L 500.4050, L501.2300, L100.0100 #### [facility] [address] [place], [address] Basophils/100 WBC (Bld) 0.3 % Normal 0-1 [facility] Comment on above: Performed By: #### L 500.4050, L501.2300, L100.0100 #### [facility] [address] [place], [address] Eosinophils/100 WBC (Bld) 0.7 % Normal 0-5 [facility] Comment on above: Performed By: #### L 500.4050, L501.2300, L100.0100 #### [facility] [address] [place], [address] Erythrocyte distribution width (RBC) [Ratio] 13.2 % Normal 11.6-14.6 [facility] Comment on above: Performed By: #### L 500.4050, L501.2300, L100.0100 #### [facility] [address] [place], [address] Hematocrit (Bld) [Volume fraction] 35.6 % Low 40-54 [facility] Comment on above: Performed By: #### L 500.4050, L501.2300, L100.0100 #### [facility] [address] [place], [address] Hemoglobin (Bld) [Mass/Vol] 12.0 g/dL Low 13.0-16.5 [facility] Comment on above: Performed By: #### L 500.4050, L501.2300, L100.0100 #### [facility] [address] [place], [address] IG% 0.600 Normal 0.0-0.9 [facility] Comment on above: Result Comment: IG% - Immature Granulocytes (promyelocytes, myelocytes and metamyelocytes) > 1% indicates that a LEFT SHIFT is Present. Performed By: #### L 500.4050, L501.2300, L100.0100 #### [facility] [address] [place], [address] Lymphocytes/100 WBC (Bld) 19.1 % Normal 19-41 [facility] Comment on above: Performed By: #### L 500.4050, L501.2300, L100.0100 #### [facility] [address] [place], [address] MCH (RBC) [Entitic mass] 29.6 pg Normal 27.0-32.0 [facility] Comment on above: Performed By: #### L 500.4050, L501.2300, L100.0100 #### [facility] [address] [place], [address] MCHC (RBC) [Mass/Vol] 33.7 g/dL Normal 32-36 [facility] Comment on above: Performed By: #### L 500.4050, L501.2300, L100.0100 #### [facility] [address] [place], [address] MCV (RBC) [Entitic vol] 87.9 fL Normal 80-94 [facility] Comment on above: Performed By: #### L 500.4050, L501.2300, L100.0100 #### [facility] [address] [place], [address] Monocytes/100 WBC (Bld) 11.6 % High 0-10 [facility] Comment on above: Performed By: #### L 500.4050, L501.2300, L100.0100 #### [facility] [address] [place], [address] Neutrophils/100 WBC (Bld) 67.7 % Normal 47-70 [facility] Comment on above: Performed By: #### L 500.4050, L501.2300, L100.0100 #### [facility] [address] [place], [address] Nucleated RBC (Bld) [#/Vol] 0 10*3/uL Normal 0-5 [facility] Comment on above: Performed By: #### L 500.4050, L501.2300, L100.0100 #### [facility] [address] [place], [address] Platelet mean volume (Bld) [Entitic vol] 10.8 fL Normal 6.2-12.0 [facility] Comment on above: Performed By: #### L 500.4050, L501.2300, L100.0100 #### [facility] [address] [place], [address] Platelets (Bld) [#/Vol] 227 10*3/uL Normal 150-450 [facility] Comment on above: Performed By: #### L 500.4050, L501.2300, L100.0100 #### [facility] [address] [place], [address] RBC (Bld) [#/Vol] 4.05 10*6/uL Low 4.6-6.2 [facility] Comment on above: Performed By: #### L 500.4050, L501.2300, L100.0100 #### [facility] [address] [place], [address] RDW SD 43.1 fl Normal 35.1-43.9 [facility] Comment on above: Performed By: #### L 500.4050, L501.2300, L100.0100 #### [facility] [address] [place], [address] WBC (Bld) [#/Vol] 8.7 10*3/uL Normal 4.4-11.0 [facility] Comment on above: Performed By: #### L 500.4050, L501.2300, L100.0100 #### [facility] [address] [place], [address] Comprehensive Metabolic Prof mdon 07-27-2024 Albumin [Mass/Vol] 3.9 g/dL Normal 3.4-4.8 [facility] Comment on above: Performed By: #### L 500.4050, L501.2300, L100.0100 #### [facility] [address] [place], [address] Albumin/Globulin [Mass ratio] 1.1 {ratio} Normal 0.9-2.4 [facility] Comment on above: Performed By: #### L 500.4050, L501.2300, L100.0100 #### [facility] [address] [place], [address] ALK PHOS 71 U/L Normal 40-129 [facility] Comment on above: Performed By: #### L 500.4050, L501.2300, L100.0100 #### [facility] [address] [place], [address] ALT [Catalytic activity/Vol] 10 U/L Normal <=46 [facility] Comment on above: Performed By: #### L 500.4050, L501.2300, L100.0100 #### [facility] [address] [place], [address] AST [Catalytic activity/Vol] 14 U/L Normal <=37 [facility] Comment on above: Performed By: #### L 500.4050, L501.2300, L100.0100 #### [facility] [address] [place], [address] Bilirubin [Mass/Vol] 0.43 mg/dL Normal 0.00-1.30 [facility] Comment on above: Performed By: #### L 500.4050, L501.2300, L100.0100 #### [facility] [address] [place], [address] BUN/CRE 20.3 RATIO High 10-20 [facility] Comment on above: Performed By: #### L 500.4050, L501.2300, L100.0100 #### [facility] [address] [place], [address] Calcium [Mass/Vol] 9.3 mg/dL Normal 7.6-11.0 [facility] Comment on above: Performed By: #### L 500.4050, L501.2300, L100.0100 #### [facility] [address] [place], [address] Chloride [Moles/Vol] 104 mmol/L Normal 98-108 [facility] Comment on above: Performed By: #### L 500.4050, L501.2300, L100.0100 #### [facility] [address] [place], [address] CO2 [Moles/Vol] 22.6 mmol/L Normal 21.0-32.0 [facility] Comment on above: Performed By: #### L 500.4050, L501.2300, L100.0100 #### [facility] [address] [place], [address] Creatinine [Mass/Vol] 1.55 mg/dL High 0.70-1.20 [facility] Comment on above: Performed By: #### L 500.4050, L501.2300, L100.0100 #### [facility] [address] [place], [address] ECRCL 35.69 ml/min Low 50-250 [facility] Comment on above: Performed By: #### L 500.4050, L501.2300, L100.0100 #### [facility] [address] [place], [address] GAP 14 Normal 5-15 [facility] Comment on above: Performed By: #### L 500.4050, L501.2300, L100.0100 #### [facility] [address] [place], [address] GFR/1.73 sq M.predicted among non-blacks MDRD (S/P/Bld) [Vol rate/Area] 45 mL/min/{1.73_m2} Low >60 [facility] Comment on above: Result Comment: mL/m in/1.73m2 CKD-EPI Creatinine Equation (2020) Performed By: #### L 500.4050, L501.2300, L100.0100 #### [facility] [address] [place], [address] Globulin (S) [Mass/Vol] 3.5 g/dL Normal 2.2-4.2 [facility] Comment on above: Performed By: #### L 500.4050, L501.2300, L100.0100 #### [facility] [address] [place], [address] Glucose [Mass/Vol] 257 mg/dL High 70-99 [facility] Comment on above: Performed By: #### L 500.4050, L501.2300, L100.0100 #### [facility] [address] [place], [address] Potassium [Moles/Vol] 3.7 mmol/L Normal 3.3-5.1 [facility] Comment on above: Performed By: #### L 500.4050, L501.2300, L100.0100 #### [facility] [address] [place], [address] Sodium [Moles/Vol] 140 mmol/L Normal 133-145 [facility] Comment on above: Performed By: #### L 500.4050, L501.2300, L100.0100 #### [facility] [address] [place], [address] T PROT 7.4 g/dL Normal 5.9-8.4 [facility] Comment on above: Performed By: #### L 500.4050, L501.2300, L100.0100 #### [facility] [address] [place], [address] Urea nitrogen [Mass/Vol] 31 mg/dL High 4-19 [facility] Comment on above: Performed By: #### L 500.4050, L501.2300, L100.0100 #### [facility] [address] [place], [address] Eosinophil percentageOrdered By: Michael Mercer on 07-27-2024 Eosinophils/100 WBC (Bld) 0.7 % 0-5 [facility] Erythrocyte distribution wid th ratioOrdered By: Michael Mercer on 07-27-2024 Erythrocyte distribution width (RBC) [Ratio] 13.2 % 11.6-14.6 [facility] Erythrocyte distribution wid th standard deviationOrdered By: Michael Mercer on 07-27-2024 Erythrocyte distribution width (RBC) [Ratio] 43.1 fl 35.1-43.9 [facility] Glucoseon 07-27-2024 Glucose [Mass/Vol] 468 mg/dL Invalid Interpretation Code 70-99 [facility] Comment on above: Order Comment: Comme nts: blood glucose greater than 450 (was 455) Result Comment: Crit ical Result(s) Called at 07/27/2024-12:16 by Linden Kent to Chema Rousseau??Results read back by same. Performed By: #### L 500.4050, L501.2300, L100.0100 #### [facility] [address] [place], [address] Hematocrit Auto (Bld) [Volum e fraction]Ordered By: Michael Mercer on 07-27-2024 Hematocrit (Bld) [Volume fraction] 35.6 % Low 40-54 [facility] Hemoglobin measurementOrdere d By: Michael Mercer on 07-27-2024 Hemoglobin (Bld) [Mass/Vol] 12.0 g/dL Low 13.0-16.5 [facility] Immature granulocytes/100 WB C Auto (Bld)Ordered By: Michael Mercer on 07-27-2024 Immature granulocytes/100 WBC (Bld) 0.600 % 0.0-0.9 [facility] Comment on above: IG% - Immature Granu locytes (promyelocytes, myelocytes and metamyelocytes) > 1% indicates that a LEFT SHIFT is Present. Laboratory - Chemistry and C hemistry - challengeOrdered By: Michael Mercer on 07-27-2024 AST [Catalytic activity/Vol] 14 U/L <38 [facility] MCV (mean corpuscular volume ) determinationOrdered By: Michael Mercer on 07-27-2024 MCV (RBC) [Entitic vol] 87.9 fL 80-94 [facility] Mean corpuscular hemoglobin (MCH) determinationOrdered By: Michael Mercer on 07-27-2024 MCH (RBC) [Entitic mass] 29.6 pg 27.0-32.0 [facility] Mean corpuscular hemoglobin concentration (MCHC) determinationOrdered By: Michael Mercer on 07-27-2024 MCHC (RBC) [Mass/Vol] 33.7 g/dL 32-36 [facility] Mean platelet volume determi nationOrdered By: Michael Mercer on 07-27-2024 Platelet mean volume (Bld) [Entitic vol] 10.8 fL 6.2-12.0 [facility] Monocyte percentageOrdered B y: Michael Mercer on 07-27-2024 Monocytes/100 WBC (Bld) 11.6 % High 0-10 [facility] Neutrophil percentageOrdered By: Michael Mercer on 07-27-2024 Neutrophils/100 WBC (Bld) 67.7 % 47-70 [facility] Nucleated red blood cell per centageOrdered By: Michael Mercer on 07-27-2024 Nucleated RBC/100 WBC (Bld) [Ratio] 0 % 0-5 [facility] Phosphoruson 07-27-2024 Phosphate [Mass/Vol] 2.6 mg/dL Low 2.7-4.5 [facility] Comment on above: Performed By: #### L 500.4050, L501.2300, L100.0100 #### [facility] [address] [place], [address] Platelet countOrdered By: Ayaan Mercer on 07-27-2024 Platelets (Bld) [#/Vol] 227 10*3/uL 150-450 [facility] RBC Auto (Bld) [#/Vol]Ordere d By: Michael Mercer on 07-27-2024 RBC (Bld) [#/Vol] 4.05 10*6/uL Low 4.6-6.2 [facility] Serum globulin measurementOr dered By: Michael Mercer on 07-27-2024 Globulin (S) [Mass/Vol] 3.5 g/dL 2.2-4.2 [facility] Serum or plasma alanine ayers otransferase (ALT) measurementOrdered By: Michael Mercer on 07-27-2024 ALT [Catalytic activity/Vol] 10 U/L <47 [facility] Serum or plasma albumin lio urement (mass/volume)Ordered By: Michael Mercer on 07-27-2024 Albumin [Mass/Vol] 3.9 g/dL 3.4-4.8 [facility] Serum or plasma albumin/glob ulin mass ratioOrdered By: Michael Mercer on 07-27-2024 Albumin/Globulin [Mass ratio] 1.1 {ratio} 0.9-2.4 [facility] Serum or plasma alkaline leslie sphatase measurementOrdered By: Michael Mercer on 07-27-2024 ALP [Catalytic activity/Vol] 71 U/L 40-129 [facility] Total proteinOrdered By: Angus Mercer on 07-27-2024 Protein [Mass/Vol] 7.4 g/dL 5.9-8.4 [facility] White blood cell (WBC) count Ordered By: Michael Mercer on 07-27-2024 WBC (Bld) [#/Vol] 8.7 10*3/uL 4.4-11.0 [facility] 12 Lead EKGon 07-26-2024 12 Lead EKG [facility] Cardiovascular Services [address] [place] [address] 12 Lead EKG 07/26/24 1650 MR#: [id number] Acct: [id number] Name: JEAN-CLAUDE DOUGLAS Rep #: [id number] : 1940 83 From: Hari Ramos MD [...] Abnormal ECG Confirmed by HARI RAMOS MD ([id number]), fan mail editor PAMELA MANZANO ([id number]) on 07/28/2024 8:20:00 AM Referred By: Confirmed By: HARI RAMOS MD 07/28/24 0820 Date Hari Ramos MD CC: Dr. Dennys Buenrostro DO; Dr. Warren Rosenberg DO; Dr. Kb Lackey MD Signed Normal [facility] Alcohol, Blood (Medical)-Ser umon 07-26-2024 SERUM ETOH < 10.1 Normal <=10.0 [facility] Comment on above: Result Comment: This test is for medical purposes only. The legal definition of intoxication varies according to local law. Performed By: #### L 500.4050, L501.2300, L100.0100 #### [facility] [address] [place], [place], [address] Amorphous sediment detection in urine sediment by light microscopyOrdered By: Warren Rosenberg on 07-26-2024 Amorphous sediment LM Ql (Urine sed) 3+ [facility] Amphetamine detection with 1 000 ng/mL as cutoffOrdered By: Michael Mercer on 07-26-2024 Amphetamines Screen method >1000 ng/mL Ql (U) Negative < 200 ng/mL [facility] Bedside Glucoseon 07-26-2024 FINGERSTICK GLU 179 mg/dL High 74-106 [facility] Comment on above: Result Comment: GENO MATOS OF PATIENT CARE PER NURSING PROTOCOL Performed By: #### L 500.4050, L501.2300, L100.0100 #### [facility] [address] [place], [place], [address] Bilirubin Test strip Ql (U)O rdered By: Warren Rosenberg on 07-26-2024 Bilirubin Ql (U) Negative Negative [facility] Brain/Head without Contrasto n 07-26-2024 Brain/Head without Contrast [facility] Imaging Services [address] [place], [place] [address] Brain/Head without Contrast MR#: [id number] Acct: [id number] Name: JEAN-CLAUDE DOUGLAS Rep #: [id number] : 1940 M 83 From: Irwin Elise MD PCP: Dr. Kb Lackey MD Status: REG ER Study: Brain/Head without Contrast Date of Exam: 07/07 05/01 Exam# [id number] Ordering Dr: Warren Rosenberg DO PROCEDURE: BRAIN/HEAD [...] CHRONIC CHANGES. NO ACUTE FINDINGS. Reading Location: [id number] CC: Dr. Warren Rosenberg DO; Dr. 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, [address] Absolute Neut 8.0 X10 3/uL High 2.0-7.7 [facility] Comment on above: Performed By: #### L 501.2300, L500.2500 #### [facility] [address] [place], [address] Basophils/100 WBC (Bld) 0.3 % Normal 0-1 [facility] Comment on above: Performed By: #### L 501.2300, L500.2500 #### [facility] [address] [place], [address] Eosinophils/100 WBC (Bld) 0.1 % Normal 0-5 [facility] Comment on above: Performed By: #### L 501.2300, L500.2500 #### [facility] [address] [place], [address] Erythrocyte distribution width (RBC) [Ratio] 13.2 % Normal 11.6-14.6 [facility] Comment on above: Performed By: #### L 501.2300, L500.2500 #### [facility] [address] [place], [address] Hematocrit (Bld) [Volume fraction] 38.1 % Low 40-54 [facility] Comment on above: Performed By: #### L 501.2300, L500.2500 #### [facility] [address] [place], [address] Hemoglobin (Bld) [Mass/Vol] 12.6 g/dL Low 13.0-16.5 [facility] Comment on above: Performed By: #### L 501.2300, L500.2500 #### [facility] [address] [place], [address] IG% 0.700 Normal 0.0-0.9 [facility] Comment on above: Result Comment: IG% - Immature Granulocytes (promyelocytes, myelocytes and metamyelocytes) > 1% indicates that a LEFT SHIFT is Present. Performed By: #### L 501.2300, L500.2500 #### [facility] [address] [place], [address] Lymphocytes/100 WBC (Bld) 9.8 % Low 19-41 [facility] Comment on above: Performed By: #### L 501.2300, L500.2500 #### [facility] [address] [place], [address] MCH (RBC) [Entitic mass] 29.2 pg Normal 27.0-32.0 [facility] Comment on above: Performed By: #### L 501.2300, L500.2500 #### [facility] [address] [place], [address] MCHC (RBC) [Mass/Vol] 33.1 g/dL Normal 32-36 [facility] Comment on above: Performed By: #### L 501.2300, L500.2500 #### [facility] [address] [place], [address] MCV (RBC) [Entitic vol] 88.2 fL Normal 80-94 [facility] Comment on above: Performed By: #### L 501.2300, L500.2500 #### [facility] [address] [place], [address] Monocytes/100 WBC (Bld) 11.6 % High 0-10 [facility] Comment on above: Performed By: #### L 501.2300, L500.2500 #### [facility] [address] [place], [address] Neutrophils/100 WBC (Bld) 77.5 % High 47-70 [facility] Comment on above: Performed By: #### L 501.2300, L500.2500 #### [facility] [address] [place], [address] Nucleated RBC (Bld) [#/Vol] 0 10*3/uL Normal 0-5 [facility] Comment on above: Performed By: #### L 501.2300, L500.2500 #### [facility] [address] [place], [address] Platelet mean volume (Bld) [Entitic vol] 11.1 fL Normal 6.2-12.0 [facility] Comment on above: Performed By: #### L 501.2300, L500.2500 #### [facility] [address] [place], [address] Platelets (Bld) [#/Vol] 251 10*3/uL Normal 150-450 [facility] Comment on above: Performed By: #### L 501.2300, L500.2500 #### [facility] [address] [place], [address] RBC (Bld) [#/Vol] 4.32 10*6/uL Low 4.6-6.2 [facility] Comment on above: Performed By: #### L 501.2300, L500.2500 #### [facility] [address] [place], [address] RDW SD 42.6 fl Normal 35.1-43.9 [facility] Comment on above: Performed By: #### L 501.2300, L500.2500 #### [facility] [address] [place], [address] WBC (Bld) [#/Vol] 10.3 10*3/uL Normal 4.4-11.0 [facility] Comment on above: Performed By: #### L 501.2300, L500.2500 #### [facility] [address] [place], [address] Chest 1 View (Portable)on Chest 1 View (Portable) [facility] Imaging Services [address] [place] [address] Chest 1 View (Portable) MR#: [id number] Acct: [id number] Name: JEAN-CLAUDE DOUGLAS Rep #: [id number] : 1940 M 83 From: Morales Lin MD PCP: Dr. Kb Lackey MD Status: [facility] ER Study: Chest 1 View (Portable) Date of Exam: 07/26/24 Exam# [id number] Ordering Dr: Warren Rosenberg DO PROCEDURE: CHEST [...] Warren Rosenberg DO; Dr. 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, [address] Albumin/Globulin [Mass ratio] 1.1 {ratio} Normal 0.9-2.4 [facility] Comment on above: Performed By: #### L 501.2300, L500.2500 #### [facility] [address] [place], [address] ALK PHOS 72 U/L Normal 40-129 [facility] Comment on above: Performed By: #### L 501.2300, L500.2500 #### [facility] [address] [place], [address] ALT [Catalytic activity/Vol] 9 U/L Normal <=46 [facility] Comment on above: Performed By: #### L 501.2300, L500.2500 #### [facility] [address] [place], [address] AST [Catalytic activity/Vol] 20 U/L Normal <=37 [facility] Comment on above: Performed By: #### L 501.2300, L500.2500 #### [facility] [address] [place], [address] Bilirubin [Mass/Vol] 0.39 mg/dL Normal 0.00-1.30 [facility] Comment on above: Performed By: #### L 501.2300, L500.2500 #### [facility] [address] [place], [address] BUN/CRE 21.5 RATIO High 10-20 [facility] Comment on above: Performed By: #### L 501.2300, L500.2500 #### [facility] [address] [place], [address] Calcium [Mass/Vol] 9.4 mg/dL Normal 7.6-11.0 [facility] Comment on above: Performed By: #### L 501.2300, L500.2500 #### [facility] [address] [place], [address] Chloride [Moles/Vol] 104 mmol/L Normal 98-108 [facility] Comment on above: Performed By: #### L 501.2300, L500.2500 #### [facility] [address] [place], [address] CO2 [Moles/Vol] 22.8 mmol/L Normal 21.0-32.0 [facility] Comment on above: Performed By: #### L 501.2300, L500.2500 #### [facility] [address] [place], [address] Creatinine [Mass/Vol] 1.64 mg/dL High 0.70-1.20 [facility] Comment on above: Performed By: #### L 501.2300, L500.2500 #### [facility] [address] [place], [address] GAP 14 Normal 5-15 [facility] Comment on above: Performed By: #### L 501.2300, L500.2500 #### [facility] [address] [place], [address] GFR/1.73 sq M.predicted among non-blacks MDRD (S/P/Bld) [Vol rate/Area] 42 mL/min/{1.73_m2} Low >60 [facility] Comment on above: Result Comment: mL/m in/1.73m2 CKD-EPI Creatinine Equation (2020) Performed By: #### L 501.2300, L500.2500 #### [facility] [address] [place], [address] Globulin (S) [Mass/Vol] 3.5 g/dL Normal 2.2-4.2 [facility] Comment on above: Performed By: #### L 501.2300, L500.2500 #### [facility] [address] [place], [address] Glucose [Mass/Vol] 179 mg/dL High 70-99 [facility] Comment on above: Performed By: #### L 501.2300, L500.2500 #### [facility] [address] [place], [address] Potassium [Moles/Vol] 4.4 mmol/L Normal 3.3-5.1 [facility] Comment on above: Performed By: #### L 501.2300, L500.2500 #### [facility] [address] [place], [address] Sodium [Moles/Vol] 140 mmol/L Normal 133-145 [facility] Comment on above: Performed By: #### L 501.2300, L500.2500 #### [facility] [address] [place], [address] T PROT 7.6 g/dL Normal 5.9-8.4 [facility] Comment on above: Performed By: #### L 501.2300, L500.2500 #### [facility] [address] [place], [address] Urea nitrogen [Mass/Vol] 35 mg/dL High 4-19 [facility] Comment on above: Performed By: #### L 501.2300, L500.2500 #### [facility] [address] [place], [address] Emergency Department Summary on 07-26-2024 Emergency Department Summary [facility] Medical Records Department [address] [place] [address] Emergency Department Summary 07/26/24 MR#: [id number] Acct: [id number] Name: JEAN-CLAUDE DOUGLAS Rep #: [id number] : 1940 83 From: Warren Rosenberg DO [...] Ox 96 Oxygen Delivery Method Room Air [facility] Narrative Medical decision making narrative: HISTORY OF [...] reviewed, Vital signs reviewed Constitutional: please see [facility] HENT: MMM Eyes: Pupils equal round and [...] others: none Consults: Internal Medicine (Dr. House) [facility] Narrative: The patient was initially hemodynamically stable, afebrile and nontoxic-appearing. Exam with no focal deficits. I considered the following differential diagnosis: ICH, metabolic or inf (more content not included)... Normal [facility] Ferritinon 07-26-2024 Ferritin [Mass/Vol] 193 ng/mL Normal 37-417 [facility] Comment on above: Performed By: #### L 501.2300, L500.2500 #### [facility] [address] [place], [address] Folate [Moles/volume] in Ser um or PlasmaOrdered By: Michael Mercer on 07-26-2024 Folate [Moles/Vol] 11.00 ng/mL 4.60-34.80 [facility] Folates,Serum (Folic Acid)on 07-26-2024 FOLATES,SERUM 11.00 ng/mL Normal 4.60-34.80 [facility] Comment on above: Order Comment: N Performed By: #### L 501.2300, L500.2500 #### [facility] [address] [place], [address] [facility]P Exam - Hospitalist [facility] Medical Records Department [address] [place] [address] H P Exam - Hospitalist 07/26/241944 MR#: [id number] Acct: [id number] Name: JEAN-CLAUDE DOUGLAS Rep #: [id number] : 1940 83 From: Michael House DO PCP: Dr. Kb Lackey MD Status:[facility]M [facility] - General General Date of Admission: [...] of cataracts and OA who presents to [facility] complaining of confusion and fluctuating [...] is expected to extend beyond 2 midnights. [facility] Medical History Dementia Benign essential hypertension Hypothyroidism [...] focal mo (more content not included)... Normal [facility] Hemoglobin A1con 07-26-2024 HbA1c (Bld) [Mass fraction] 9.5 % High <=5.6 [facility] Comment on above: Result Comment: Norm al < 5.7 % Prediabetic 5.7 - 6.4 % Diabetic >or= 6.5 % Please note range changes. Performed By: #### L 503.8342, L506.0200, L503.6030, L501.5200, L501.9146, L501.9985 #### [facility] [address] [place], [place], [address] Hemoglobin A1c percentageOrd ered By: Michael Mercer on 07-26-2024 HbA1c (Bld) [Mass fraction] 9.5 % High <5.7 [facility] Comment on above: Normal < 5.7 % Predi abetic 5.7 - 6.4 % Diabetic >or= 6.5 % Please note range changes. Influenza virus A and B and SARS-CoV-2 (COVID-19) and Respiratory syncytial virus RNAOrdered By: Warren Rosenberg on 07-26-2024 SARS-CoV-2 (COVID-19) RNA CAROLINA+probe Ql (Unsp spec) [facility] Iron measurement (mass/mass) Ordered By: Michael Mercer on 07-26-2024 Iron (Unsp spec) [Mass/Mass] 13 ug/dL Low 65-175 [facility] Iron+Iron Binding Capacityon 07-26-2024 Iron [Mass/Vol] 13 ug/dL Low 65-175 [facility] Comment on above: Performed By: #### L 503.6550, L506.0200, L503.6030, L501.5200, L501.9520, L501.9985 #### [facility] [address] [place], [place], [address] IRON SATURATION 6.0 Low 9-55 [facility] Comment on above: Result Comment: AMENDED REPORT 07/26/242105 IRON SATURATION previously reported as: 6.0 L % Performed By: #### L 503.6550, L506.0200, L503.6030, L501.5200, L501.9520, L501.9985 #### [facility] [address] [place], [place], [address] UIBC 221 ug/dL Low 228-428 [facility] Comment on above: Performed By: #### L 503.6550, L506.0200, L503.6030, L501.5200, L501.9520, L501.9985 #### [facility] [address] [place], [address] Ketones Test strip Ql (U)Ord ered By: Warren Rosenberg on 07-26-2024 Ketones Ql (U) 15 mg/dl High Negative [facility] L501.4021on 07-26-2024 Trop T High Sen 20 ng/L Normal <=22 [facility] Comment on above: Performed By: #### L 501.2300, L500.2500 #### [facility] [address] [place], [address] M100.678on 07-26-2024 M100.678 Pending SARS-CoV-2 (COVID 19) Negative INFLUENZA A Negative INFLUENZA B Negative RSV PCR Negative Normal [facility] Comment on above: Performed By: #### L 501.2300, L500.2500 #### [facility] [address] [place], [address] Magnesiumon 07-26-2024 Magnesium [Mass/Vol] 1.5 mg/dL Normal 1.5-2.2 [facility] Comment on above: Performed By: #### L 503.6550, L506.0200, L503.6030, L501.5200, L501.9520, L501.9985 #### [facility] [address] [place], [address] Magnesium measurement (mass/ volume)Ordered By: Michael Mercer on 07-26-2024 Magnesium (Unsp spec) [Mass/Vol] 1.5 mg/dL 1.5-2.2 [facility] Microscopic analysis of urin e for red blood cells (RBC)Ordered By: Warren Rosenberg on 07-26-2024 Microscopic analysis of urine for red blood cells (RBC) 5-10 SEEN /hpf 0-5 [facility] Mucus LM Ql (Urine sed)Order ed By: Warren Rosenberg on 07-26-2024 Mucus Ql (Urine sed) 0 SEEN /hpf [facility] Nitrite Test strip Ql (U)Ord ered By: Warren Rosenberg on 07-26-2024 Nitrite Ql (U) Positive High Negative [facility] No Panel InformationOrdered By: Michael Mercer on 07-26-2024 Urine Buprenorphine Qualitative Negative < 200 ng/mL [facility] Urine Oxycodone Screen Negative < 100 ng/mL [facility] Unsaturated Iron Binding Capacity 221 ug/dL Low 228-428 [facility] Protein Test strip Ql (U)Ord ered By: Warren Rosenberg on 07-26-2024 Protein Ql (U) 100 mg/dl High Negative [facility] Quantitative urine opiates m easurementOrdered By: Michael Mercer on 07-26-2024 Opiates Ql (U) Negative < 300 ng/mL [facility] Screening urine fentanyl doreen surementOrdered By: Michael Mercer on 07-26-2024 fentaNYL Screen Ql (U) Negative [facility] Serum or plasma ethanol lio urement (mass/volume)Ordered By: Michael Mercer on 07-26-2024 Ethanol [Mass/Vol] mg/dL <10.1 [facility] Comment on above: This test is for med ical purposes only. The legal definition of intoxication varies according to local law. Serum or plasma ferritin doreen surement (mass/volume)Ordered By: Michael Mercer on 07-26-2024 Ferritin [Mass/Vol] 193 ng/mL 37-417 [facility] Serum or plasma iron saturat ion measurement (mass fraction)Ordered By: Michael Mercer on 07-26-2024 Iron saturation [Mass fraction] 5.6 % Low 9-55 [facility] Comment on above: Previous reported re sult: 6.0 %Edited by: DORETHA on 07/26/24:2105 AMENDED REPORT 07/26/242105 IRON SATURATION previously reported as: 6.0 L % Squamous epithelial cells de tection in urine sediment by light microscopyOrdered By: Warren Rosenberg on 07-26-2024 Epithelial cells.squamous LM Ql (Urine sed) 0-5 SEEN /hpf 0-5 [facility] TSH DL <= 0.005 mIU/L QnOrde red By: Michael Mercer on 07-26-2024 TSH Qn 2.300 uIU/mL 0.300-4.200 [facility] Thyroid Stim Hormone (TSH)on 07-26-2024 TSH 2.300 uIU/mL Normal 0.300-4.200 [facility] Comment on above: Performed By: #### L 503.6550, L506.0200, L503.6030, L501.5200, L501.9520, L501.9985 #### [facility] [address] [place], [address] Triple phosphate crystals de tection in urine sediment by light microscopyOrdered By: Warren Rosenberg on 07-26-2024 Triple phosphate crystals LM Ql (Urine sed) RARE /hpf [facility] Troponin T.cardiac [Mass/vol ume] in Serum or Plasma by High sensitivity methodOrdered By: Warren Rosenberg on 07-26-2024 Troponin T.cardiac High sensitivity method [Mass/Vol] 20 ng/L <22 [facility] Urinalysis, Completeon 07-26 BILIRUBIN URINE Negative Normal Negative [facility] Comment on above: Order Comment: CLEAN CATCH Performed By: #### L 501.2300, L500.2500 #### [facility] [address] [place], [address] Clarity (U) Turbid Normal Clear [facility] Comment on above: Order Comment: CLEAN CATCH Performed By: #### L 501.2300, L500.2500 #### [facility] [address] [place], [address] Color (U) Yellow Normal Yellow [facility] Comment on above: Order Comment: CLEAN CATCH Performed By: #### L 501.2300, L500.2500 #### [facility] [address] [place], [address] GLUCOSE, UR 100 mg/dl Abnormal Normal [facility] Comment on above: Order Comment: CLEAN CATCH Performed By: #### L 501.2300, L500.2500 #### [facility] [address] [place], [address] KETONE UR 15 mg/dl Abnormal Negative [facility] Comment on above: Order Comment: CLEAN CATCH Performed By: #### L 501.2300, L500.2500 #### [facility] [address] [place], [address] LEUK ESTERASE 500 /ul Abnormal Negative [facility] Comment on above: Order Comment: CLEAN CATCH Performed By: #### L 501.2300, L500.2500 #### [facility] [address] [place], [address] Nitrite Ql (U) Positive Abnormal Negative [facility] Comment on above: Order Comment: CLEAN CATCH Performed By: #### L 501.2300, L500.2500 #### [facility] [address] [place], [address] OCCULT BLOOD-UR 250 /ul Abnormal Negative [facility] Comment on above: Order Comment: CLEAN CATCH Performed By: #### L 501.2300, L500.2500 #### [facility] [address] [place], [address] pH UR 7.0 Normal 5.0 - 8.0 [facility] Comment on above: Order Comment: CLEAN CATCH Performed By: #### L 501.2300, L500.2500 #### [facility] [address] [place], [address] PROT DIPSTX 100 mg/dl Abnormal Negative [facility] Comment on above: Order Comment: CLEAN CATCH Performed By: #### L 501.2300, L500.2500 #### [facility] [address] [place], [address] SP.GR. DIPSTX 1.010 Normal 1.002-1.030 [facility] Comment on above: Order Comment: CLEAN CATCH Performed By: #### L 501.2300, L500.2500 #### [facility] [address] [place], [place], [address] UROBILI Normal Normal Normal [facility] Comment on above: Order Comment: CLEAN CATCH Performed By: #### L 501.2300, L500.2500 #### [facility] [address] [place], [address] Urine benzodiazepine levelOr dered By: Michael Mercer on 07-26-2024 Benzodiazepines Ql (U) Negative < 200 ng/mL [facility] Urine clarityOrdered By: Tian Rosenberg on 07-26-2024 Clarity (U) Turbid Clear [facility] Urine cocaine levelOrdered B y: Michael Mercer on 07-26-2024 Cocaine Ql (U) Negative < 300 ng/mL [facility] Urine color determinationOrd ered By: Warren Rosenberg on 07-26-2024 Color (U) Yellow Yellow [facility] Urine elqax-8-tgcwdhgcpqzxet abinol (THC) measurementOrdered By: Michael Mercer on 07-26-2024 Cannabinoids Screen Ql (U) Negative < 50 ng/mL [facility] Urine glucose detectionOrder ed By: Warren Rosenberg on 07-26-2024 Glucose Ql (U) 100 mg/dl High Normal [facility] Urine leukocyte esterase det ection by dipstickOrdered By: Warren Rosenberg on 07-26-2024 Leukocyte esterase Test strip Ql (U) 500 /ul High Negative [facility] Urine pHOrdered By: Warren dangelo on 07-26-2024 pH (U) 7.0 [pH] 5.0 - 8.0 [facility] Urine phencyclidine (PCP) de tectionOrdered By: Michael Mercer on 07-26-2024 Phencyclidine Ql (U) Negative < 25 ng/mL [facility] Urine sediment bacteria coun t by microscopy (number/high power field)Ordered By: Warren Rosenberg on 07-26-2024 Bacteria LM.HPF (Urine sed) [#/Area] 4 /[HPF] None Seen [facility] Urine specific gravity measu rementOrdered By: Warren Rosenberg on 07-26-2024 Specific gravity (U) [Rel density] 1.010 1.002-1.030 [facility] Urine urobilinogen measureme ntOrdered By: Warren Rosenberg on 07-26-2024 Urobilinogen Ql (U) Normal mg/dl Normal [facility] Vitamin B12on 07-26-2024 Cobalamin (Vitamin B12) [Mass/Vol] 769 pg/mL Normal 180-914 [facility] Comment on above: Performed By: #### L 501.2300, L500.2500 #### [facility] [address] [place], [place], [address] Vitamin B12 ser/plasOrdered By: Michael Mercer on 07-26-2024 Cobalamin (Vitamin B12) [Mass/Vol] 769 pg/mL 180-914 [facility] White blood cell countOrdere d By: Warren Rosenberg on 07-26-2024 White blood cell count 10-25 SEEN /hpf 0-5 [facility] Endocrinology Visit Reporton 06-22-2024 Endocrinology Visit Report [facility] 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 Normal [facility] Endocrinology Visit Reporton 05-18-2024 Endocrinology Visit Report [facility] [address] [place] [address]. [address] [place] [address] OFFICE VISIT Date of Service: 05/18/24 MR#: [id number] Acct: [id number] Name: JEAN-CLAUDE DOUGLAS Rep #: [id number] : 1940 Provider: Betsey Garcia Age/Sex: 83/M Location[place] [facility] Status: Signed Intake Vital Signs 11/25/23 09:50 [...] no rashes (more content not included)... Normal [facility] HBA1C (OUTSIDE)on 05-18-2024 HbA1c (Bld) [Mass fraction] 11.7 % [facility] Comment on above: Dr Kemp (endo) [facility] Endocrinology Visit Reporton 11-25-2023 Endocrinology Visit Report [facility] [address] [facility]. 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 Normal [facility] HBA1C (OUTSIDE)on 11-25-2023 HbA1c (Bld) [Mass fraction] 11.3 % [facility] Comment on above: per endo Dr Kemp [facility] HBA1C (OUTSIDE)on 06-10-2023 HbA1c (Bld) [Mass fraction] 10.5 % [facility] VITAMIN D 25 HYDROXYon 12-23 25-hydroxyvitamin D3 [Mass/Vol] 57.7 ng/mL 31.0 - 80.0 ng/mL [facility] LIPID PANEL (EXTERNAL)on HDC-L 64 mg/dL Abnormal 41 mg/dL [facility] LDL Chol, calculated 42 MG/DL 130 MG/DL [facility] LIPID PANEL (OUTSIDE)on 07-06 Cholesterol in HDL [Mass/Vol] 64 mg/dL [facility] Cholesterol in LDL [Mass/Vol] 42 mg/dL [facility] VLDL Cholesterol 11 [facility] Laboratory - Chemistry and C hemistry - challengeon 07-17-2022 Cholesterol [Mass/Vol] 117 mg/dL [facility] Triglyceride [Mass/Vol] 56 mg/dL [facility] TSH (EXTERNAL)on 07-17-2022 TSH 2.43 IU/ml 0.2 - 5.6 IU/ml [facility] Absolute lymphocyte countOrd ered By: Dr. Buenrostro on 06-07-2022 Lymphocytes Auto (Unsp spec) [#/Vol] 0.73 10*3/uL 0.83-4.51 [facility] Basophil percentageOrdered B y: Dr. Buenrostro on 06-07-2022 Basophils/100 WBC (Bld) 0.1 % 0-1 [facility] Eosinophils/100 WBC (Bld) 0.9 % 0-5 [facility] Neutrophils (Bld) [#/Vol] 7.2 10*3/uL 2.0-7.7 [facility] Neutrophils/100 WBC (Bld) 81.5 % 47-70 [facility] WBC (Bld) [#/Vol] 8.9 10*3/uL 4.4-11.0 [facility] Blood erythrocytes count (nu mber/volume)Ordered By: Dr. Buenrostro on 06-07-2022 RBC (Bld) [#/Vol] 3.39 10*6/uL 4.6-6.2 [facility] Blood hemoglobin measurement (mass/volume)Ordered By: Dr. Buenrostro on 06-07-2022 Hemoglobin (Bld) [Mass/Vol] 10.2 g/dL 13.0-16.5 [facility] Blood lymphocytes/100 leukoc ytesOrdered By: Dr. Buenrostro on 06-07-2022 Lymphocytes/100 WBC (Bld) 8.2 % 19-41 [facility] Blood monocytes/100 leukocyt esOrdered By: Dr. Buenrostro on 06-07-2022 Monocytes/100 WBC (Bld) 8.3 % 0-10 [facility] Blood platelet mean volumeOr dered By: Dr. Buenrostro on 06-07-2022 Platelet mean volume (Bld) [Entitic vol] 11.2 fL 6.2-12.0 [facility] Determination of erythrocyte mean corpuscular volume (MCV)Ordered By: Dr. Buenrostro on 06-07-2022 MCV (RBC) [Entitic vol] 94.7 fL 80-94 [facility] Glucose Glucometer (BldC) [M ass/Vol]Ordered By: Dr. Buenrostro on 06-07-2022 Glucose [Mass/Vol] 241 mg/dL 74-106 [facility] Comment on above: MANAGEMENT OF PATIEN T CARE PER NURSING PROTOCOL Hematocrit Auto (Bld) [Volum e fraction]Ordered By: Dr. Buenrostro on 06-07-2022 Hematocrit (Bld) [Volume fraction] 32.1 % 40-54 [facility] Laboratory - Hematology and Cell countsOrdered By: Dr. Buenrostro on 06-07-2022 Erythrocyte distribution width (RBC) [Entitic vol] 43.3 fL 35.1-43.9 [facility] Erythrocyte distribution width (RBC) [Ratio] 12.5 % 11.6-14.6 [facility] Immature granulocytes/100 WBC (Bld) 1.000 % 0.0-0.9 [facility] Comment on above: IG% - Immature Granu locytes (promyelocytes, myelocytes and metamyelocytes) > 1% indicates that a LEFT SHIFT is Present. MCH (RBC) [Entitic mass] 30.1 pg 27.0-32.0 [facility] Nucleated RBC/100 WBC (Bld) [Ratio] 0 % 0-5 [facility] MCHC Auto (RBC) [Mass/Vol]Or dered By: Dr. Buenrostro on 06-07-2022 MCHC (RBC) [Mass/Vol] 31.8 g/dL 32-36 [facility] Platelets bldOrdered By: Dr. Buenrostro on 06-07-2022 Platelets (Bld) [#/Vol] 119 10*3/uL 150-450 [facility] Basophil percentageOrdered B y: Dr. Davis on 06-06-2022 Lactate [Moles/Vol] 3.3 mmol/L 0.4-2.0 [facility] Comment on above: Critical Result(s) C alled at: 09:27:30 06/06/2022 by: Dustin Thompson RN PCU. Results read back by same. Chloride [Moles/Vol] 109 mmol/L 98-107 [facility] Glucose [Mass/Vol] 359 mg/dL 74-106 [facility] Comment on above: Glucose result great er than or equal to 200 mg/dLsuggests DIABETES MELLITUS per A.D.A. criteria. Potassium [Moles/Vol] 4.5 mmol/L 3.5-5.1 [facility] Sodium [Moles/Vol] 142 mmol/L 136-145 [facility] Blood manual differential co mment interpretation (narrative result)Ordered By: Dr. Davis on 06-06-2022 Manual differential comment David (Bld) [Interp] SCANNED [facility] Comment on above: LYMPHOPENIA, 1+ BAND S NOTED Culture, urineOrdered By: Dr Magalis Garcia on 06-06-2022 Bacteria identified Cx Nom (U) Positive [facility] Laboratory - Chemistry and C hemistry - challengeOrdered By: Dr. Davis on 06-06-2022 CO2 [Moles/Vol] 21.0 mmol/L 21.0-32.0 [facility] Urea nitrogen/Creatinine [Mass ratio] 25.7 mg/mg 10-20 [facility] No Panel InformationOrdered By: Dr. Davis on 06-06-2022 Estimated Creatinine Clearance Calc 38.53 ml/min [facility] Estimated GFR (MDRD) Amer 59 mL/min >60 [facility] Comment on above: GFR Calc Estimated GFR (MDRD) Non-Af Amer 49 mL/min >60 [facility] Comment on above: Non- GFR Calc Serum or plasma calcium lio urement (mass/volume)Ordered By: Dr. Davis on 06-06-2022 Calcium [Mass/Vol] 8.3 mg/dL 8.5-10.1 [facility] Serum or plasma creatinine m easurement (mass/volume)Ordered By: Dr. Davis on 06-06-2022 Creatinine [Mass/Vol] 1.48 mg/dL 0.70-1.30 [facility] Comment on above: The validity of the calculated GFR & GFRAA in patients over 70 years has not been determined. Clinical correlation is essential. Serum or plasma urea nitroge n measurement (mass/volume)Ordered By: Dr. Davis on 06-06-2022 Urea nitrogen [Mass/Vol] 38 mg/dL 7-18 [facility] Thin prep Papanicolaou smear with manual screeningOrdered By: Dr. Davis on 06-06-2022 Thin prep Papanicolaou smear with manual screening 12 5-15 [facility] Absolute lymphocyte countOrd ered By: Dr. Garcia on 06-05-2022 Lymphocytes Auto (Unsp spec) [#/Vol] 0.43 10*3/uL 0.83-4.51 [facility] Basophil percentageOrdered B y: Dr. Garcia on 06-05-2022 Basophil percentage 10-25 SEEN /hpf 0-5 [facility] Basophils/100 WBC (Bld) 0.3 % 0-1 [facility] Bilirubin [Mass/Vol] 0.50 mg/dL 0.20-1.00 [facility] Comment on above: For patients on eltr ombopag therapy, use of Dimension Docena TBIL is not recommended. Chloride [Moles/Vol] 110 mmol/L 98-107 [facility] Eosinophils/100 WBC (Bld) 0.2 % 0-5 [facility] Glucose [Mass/Vol] 166 mg/dL 74-106 [facility] Comment on above: Fasting Glucose resu lt greater than or equal to 126 mg/dL suggests DIABETES MELLITUS per A.D.A. criteria. Lactate [Moles/Vol] 2.9 mmol/L 0.4-2.0 [facility] Comment on above: Critical Result(s) C alled at: 18:55:45 06/05/2022 by: Yin Marlow. Results read back by same. Neutrophils (Bld) [#/Vol] 10.8 10*3/uL 2.0-7.7 [facility] Neutrophils/100 WBC (Bld) 93.5 % 47-70 [facility] Potassium [Moles/Vol] 3.4 mmol/L 3.5-5.1 [facility] Protein [Mass/Vol] 6.4 g/dL 6.4-8.2 [facility] Sodium [Moles/Vol] 144 mmol/L 136-145 [facility] WBC (Bld) [#/Vol] 11.6 10*3/uL 4.4-11.0 [facility] Bilirubin Test strip Ql (U)O rdered By: Dr. Garcia on 06-05-2022 Bilirubin Ql (U) Negative Negative [facility] Blood erythrocytes count (nu mber/volume)Ordered By: Dr. Garcia on 06-05-2022 RBC (Bld) [#/Vol] 4.25 10*6/uL 4.6-6.2 [facility] Blood hemoglobin measurement (mass/volume)Ordered By: Dr. Garcia on 06-05-2022 Hemoglobin (Bld) [Mass/Vol] 12.8 g/dL 13.0-16.5 [facility] Blood lymphocytes/100 leukoc ytesOrdered By: Dr. Garcia on 06-05-2022 Lymphocytes/100 WBC (Bld) 3.7 % 19-41 [facility] Blood manual differential co mment interpretation (narrative result)Ordered By: Dr. Garcia on 06-05-2022 Manual differential comment David (Bld) [Interp] SCANNED [facility] Blood monocytes/100 leukocyt esOrdered By: Dr. Garcia on 06-05-2022 Monocytes/100 WBC (Bld) 1.8 % 0-10 [facility] Blood platelet mean volumeOr dered By: Dr. Garcia on 06-05-2022 Platelet mean volume (Bld) [Entitic vol] 10.9 fL 6.2-12.0 [facility] Determination of erythrocyte mean corpuscular volume (MCV)Ordered By: Dr. Garcia on 06-05-2022 MCV (RBC) [Entitic vol] 91.8 fL 80-94 [facility] Hematocrit Auto (Bld) [Volum e fraction]Ordered By: Dr. Garcia on 06-05-2022 Hematocrit (Bld) [Volume fraction] 39.0 % 40-54 [facility] INR in Blood by Coagulation assayOrdered By: Dr. Garcia on 06-05-2022 INR Coag (Bld) [Relative time] 1.1 {INR} [facility] Influenza virus A and B and SARS-CoV-2 (COVID-19) Ag panel - Upper respiratory specimOrdered By: Dr. Garcia on 06-05-2022 SARS-CoV-2 (COVID-19) RNA CAROLINA+probe Ql (Resp) [facility] Ketones Test strip Ql (U)Ord ered By: Dr. Garcia on 06-05-2022 Ketones Ql (U) Negative Negative [facility] Laboratory - Chemistry and C hemistry - challengeOrdered By: Dr. Garcia on 06-05-2022 ALP [Catalytic activity/Vol] 58 U/L 45-117 [facility] ALT [Catalytic activity/Vol] 14 U/L 16-61 [facility] CO2 [Moles/Vol] 27.0 mmol/L 21.0-32.0 [facility] Globulin (S) [Mass/Vol] 3.0 g/dL 2.2-4.2 [facility] Urea nitrogen/Creatinine [Mass ratio] 28.3 mg/mg 10-20 [facility] Laboratory - CoagulationOrde red By: Dr. Garcia on 06-05-2022 aPTT Coag (Bld) [Time] 25.0 s 24.1-36.2 [facility] PT Coag (PPP) [Time] 13.6 s 11.7-14.9 [facility] Laboratory - Hematology and Cell countsOrdered By: Dr. Garcia on 06-05-2022 Erythrocyte distribution width (RBC) [Entitic vol] 40.7 fL 35.1-43.9 [facility] Erythrocyte distribution width (RBC) [Ratio] 12.1 % 11.6-14.6 [facility] Immature granulocytes/100 WBC (Bld) 0.500 % 0.0-0.9 [facility] Comment on above: IG% - Immature Granu locytes (promyelocytes, myelocytes and metamyelocytes) > 1% indicates that a LEFT SHIFT is Present. MCH (RBC) [Entitic mass] 30.1 pg 27.0-32.0 [facility] Nucleated RBC/100 WBC (Bld) [Ratio] 0 % 0-5 [facility] MCHC Auto (RBC) [Mass/Vol]Or dered By: Dr. Garcia on 06-05-2022 MCHC (RBC) [Mass/Vol] 32.8 g/dL 32-36 [facility] Mucus LM Ql (Urine sed)Order ed By: Dr. Garcia on 06-05-2022 Mucus Ql (Urine sed) 0 SEEN /hpf [facility] Nitrite Test strip Ql (U)Ord ered By: Dr. Garcia on 06-05-2022 Nitrite Ql (U) Negative Negative [facility] No Panel InformationOrdered By: Dr. Garcia on 06-05-2022 Estimated Creatinine Clearance Calc 49.70 ml/min [facility] Estimated GFR (MDRD) Amer 75 mL/min >60 [facility] Comment on above: GFR Calc Estimated GFR (MDRD) Non-Af Amer 62 mL/min >60 [facility] Comment on above: Non- GFR Calc Platelets bldOrdered By: Dr. Garcia on 06-05-2022 Platelets (Bld) [#/Vol] 155 10*3/uL 150-450 [facility] Protein Test strip Ql (U)Ord ered By: Dr. Garcia on 06-05-2022 Protein Ql (U) 30 mg/dl Negative [facility] Serum or plasma albumin lio urement (mass/volume)Ordered By: Dr. Garcia on 06-05-2022 Albumin [Mass/Vol] 3.4 g/dL 3.2-5.0 [facility] Serum or plasma albumin/glob ulin mass ratioOrdered By: Dr. Garcia on 06-05-2022 Albumin/Globulin [Mass ratio] 1.1 {ratio} 0.9-2.4 [facility] Serum or plasma calcium lio urement (mass/volume)Ordered By: Dr. Garcia on 06-05-2022 Calcium [Mass/Vol] 9.3 mg/dL 8.5-10.1 [facility] Serum or plasma creatinine m easurement (mass/volume)Ordered By: Dr. Garcia on 06-05-2022 Creatinine [Mass/Vol] 1.20 mg/dL 0.70-1.30 [facility] Comment on above: The validity of the calculated GFR & GFRAA in patients over 70 years has not been determined. Clinical correlation is essential. Serum or plasma urea nitroge n measurement (mass/volume)Ordered By: Dr. Garcia on 06-05-2022 Urea nitrogen [Mass/Vol] 34 mg/dL 7-18 [facility] Squamous epithelial cells de tection in urine sediment by light microscopyOrdered By: Dr. Garcia on 06-05-2022 Epithelial cells.squamous LM Ql (Urine sed) 0-5 SEEN /hpf 0-5 [facility] Thin prep Papanicolaou smear with manual screeningOrdered By: Dr. Garcia on 06-05-2022 Thin prep Papanicolaou smear with manual screening 11 U/L 15-37 [facility] Thin prep Papanicolaou smear with manual screening 7 5-15 [facility] Urine blood detectionOrdered By: Dr. Garcia on 06-05-2022 RBC Ql (U) 10 /ul Negative [facility] RBC Ql (U) 0 SEEN /hpf 0-5 [facility] Urine clarityOrdered By: Dr. Garcia on 06-05-2022 Clarity (U) Cloudy Clear [facility] Urine color determinationOrd ered By: Dr. Garcia on 06-05-2022 Color (U) Yellow Yellow [facility] Urine glucose detectionOrder ed By: Dr. Garcia on 06-05-2022 Glucose Ql (U) 100 mg/dl Normal [facility] Urine leukocyte esterase det ection by dipstickOrdered By: Dr. Garcia on 06-05-2022 Leukocyte esterase Test strip Ql (U) 500 /ul Negative [facility] Urine pHOrdered By: Dr. Kalli hines on 06-05-2022 pH (U) 6.0 [pH] 5.0 - 8.0 [facility] Urine sediment bacteria coun t by microscopy (number/high power field)Ordered By: Dr. Garcia on 06-05-2022 Bacteria LM.HPF (Urine sed) [#/Area] 2 /[HPF] None Seen [facility] Urine specific gravity measu rementOrdered By: Dr. Garcia on 06-05-2022 Specific gravity (U) [Rel density] 1.010 1.002-1.030 [facility] Urobilinogen Auto test strip Ql (U)Ordered By: Dr. Garcia on 06-05-2022 Urobilinogen Ql (U) Normal mg/dl Normal [facility] Laboratory - Hematology and Cell countson 03-18-2022 HbA1c (Bld) [Mass fraction] 12.3 % [facility] HBA1C (OUTSIDE)on 12-17-2021 HbA1c (Bld) [Mass fraction] 12.1 % [facility] Vital Signs Date Time Vital Sign Value Performing Clinician Faci lity 11-22-2024 13:31-0400 Body height 177.[address] Kb Lackey MD Work Phone: [facility] 11-22-2024 13:31-0400 Body mass index (BMI) [Ratio] 22.4 kg/m2 Dr. Kb Lackey MD Work Phone: 2(594)639-005794 [place] [address] 11-22-2024 13:31-0400 Body weight 70.[address] Kb Lackey MD Work Phone: 5(893)523-882994 [place] [address] 11-22-2024 13:31-0400 Diastolic blood pressure 65 mm[Hg] Dr. Kb Lackey MD Work Phone: [facility] 11-22-2024 13:31-0400 Heart rate 65 /min Dr. Kb Lackey MD Work Phone: [facility] 11-22-2024 13:31-0400 SaO2% (BldA) [Mass fraction] 95 % Dr. Kb Lackey MD Work Phone: [facility] 11-22-2024 13:31-0400 Systolic blood pressure 111 mm[Hg] Dr. Kb Lackey MD Work Phone: [facility] 09-15-2024 14:15-0400 Body mass index (BMI) [Ratio] 21.67 kg/m2 Kb Lackey MD Work Phone: [facility] 09-15-2024 14:15-0400 Body weight 68.49 kg Kb Lackey MD Work Phone: [facility] 09-15-2024 14:15-0400 Diastolic blood pressure 80 mm[Hg] Kb Lackey MD Work Phone: [facility] 09-15-2024 14:15-0400 Heart rate 76 /min Kb Lackey MD Work Phone: [facility] 09-15-2024 14:15-0400 SaO2% (BldA) [Mass fraction] 98 % Kb Lackey MD Work Phone: [facility] 09-15-2024 14:15-0400 Systolic blood pressure 128 mm[Hg] Kb Lackey MD Work Phone: [facility] 08-03-2024 13:27-0400 Body mass index (BMI) [Ratio] 21.7 kg/m2 Dr. Kb Lackey MD Work Phone: [facility] 08-03-2024 13:27-0400 Body weight 68.49 kg Kb Lackey MD Work Phone: [facility] 08-03-2024 13:27-0400 Diastolic blood pressure 68 mm[Hg] Dr. Kb Lackey MD Work Phone: [facility] 08-03-2024 13:27-0400 Heart rate 59 /min Dr. Kb Lackey MD Work Phone: [facility] 08-03-2024 13:27-0400 SaO2% (BldA) [Mass fraction] 96 % Dr. Kb Lackey MD Work Phone: [facility] 08-03-2024 13:27-0400 Systolic blood pressure 109 mm[Hg] Dr. Kb Lackey MD Work Phone: [facility] 08-03-2024 10:00-0400 Body height 177.8 cm Kb Lackey MD Work Phone: [facility] 08-03-2024 10:00-0400 Body mass index (BMI) [Ratio] 21.67 kg/m2 bK Lackey MD Work Phone: [facility] 08-03-2024 10:00-0400 Diastolic blood pressure 63 mm[Hg] Kb Lackey MD Work Phone: [facility] 08-03-2024 10:00-0400 Heart rate 68 /min Kb Lackey MD Work Phone: [facility] 08-03-2024 10:00-0400 Systolic blood pressure 113 mm[Hg] Kb Lackey MD Work Phone: [facility] 07-28-2024 12:26-0400 Heart rate 83 /min Dr. Kb Lackey MD Work Phone: [facility] 07-28-2024 11:13-0400 Body temperature 98.1 [degF] Dr. Kb Lackey MD Work Phone: [facility] 07-28-2024 11:13-0400 Diastolic blood pressure 52 mm[Hg] Dr. Kb Lackey MD Work Phone: [facility] 07-28-2024 11:13-0400 Respiratory rate 16 /min Dr. Kb Lackey MD Work Phone: [facility] 07-28-2024 11:13-0400 SaO2% (BldA) [Mass fraction] 98 % Dr. Kb Lackey MD Work Phone: [facility] 07-28-2024 11:13-0400 Systolic blood pressure 99 mm[Hg] Dr. Kb Lackey MD Work Phone: [facility] 07-28-2024 06:00-0400 Body mass index (BMI) [Ratio] 21.4 kg/m2 Dr. Kb Lackey MD Work Phone: [facility] 07-28-2024 06:00-0400 Body weight 67.[address] Kb Lackey MD Work Phone: [facility] 01-28-2024 09:12-0400 Body height 177.8 cm Kb Lackey MD Work Phone: [facility] 01-28-2024 09:12-0400 Body mass index (BMI) [Ratio] 22.97 kg/m2 Kb Lackey MD Work Phone: [facility] 01-28-2024 09:12-0400 Body temperature 98.2 [degF] Kb Lackey MD Work Phone: [facility] 01-28-2024 09:12-0400 Body weight 72.6 kg Kb Lackey MD Work Phone: [facility] 01-28-2024 09:12-0400 Diastolic blood pressure 70 mm[Hg] Kb Lackey MD Work Phone: [facility] 01-28-2024 09:12-0400 Heart rate 66 /min Kb Lackey MD Work Phone: [facility] 01-28-2024 09:12-0400 Respiratory rate 12 /min Kb Lackey MD Work Phone: [facility] 01-28-2024 09:12-0400 SaO2% (BldA) [Mass fraction] 99 % Kb Lackey MD Work Phone: [facility] 01-28-2024 09:12-0400 Systolic blood pressure 132 mm[Hg] Kb Lackey MD Work Phone: [facility] 07-26-2023 10:00-0400 Diastolic blood pressure 76 mm[Hg] Kb Lackey MD Work Phone: [facility] 07-26-2023 10:00-0400 Systolic blood pressure 134 mm[Hg] Kb Lackey MD Work Phone: [facility] 07-26-2023 09:26-0400 Body height 177.8 cm Kb Lackey MD Work Phone: [facility] 07-26-2023 09:26-0400 Body weight 70.31 kg Kb Lackey MD Work Phone: [facility] 07-26-2023 09:26-0400 Heart rate 74 /min Kb Lackey MD Work Phone: [facility] 01-27-2023 10:06-0400 Diastolic blood pressure 78 mm[Hg] Mi Nurse Work Phone: [facility] 01-27-2023 10:06-0400 Heart rate 70 /min Mi Nurse Work Phone: [facility] 01-27-2023 10:06-0400 Respiratory rate 18 /min Mi Nurse Work Phone: [facility] 01-27-2023 10:06-0400 Systolic blood pressure 120 mm[Hg] Mi Nurse Work Phone: [facility] 12-23-2022 13:14-0400 Body weight 69.85 kg Kb Lackey MD Work Phone: [facility] 12-23-2022 13:14-0400 Diastolic blood pressure 82 mm[Hg] Kb Lackey MD Work Phone: [facility] 12-23-2022 13:14-0400 Heart rate 52 /min Kb Lackey MD Work Phone: [facility] 12-23-2022 13:14-0400 SaO2% (BldA) [Mass fraction] 99 % Kb Lackey MD Work Phone: [facility] 12-23-2022 13:14-0400 Systolic blood pressure 142 mm[Hg] Kb Lackey MD Work Phone: [facility] 06-17-2022 10:16-0400 Body weight 69.85 kg Kb Lackey MD Work Phone: [facility] 06-17-2022 10:16-0400 Diastolic blood pressure 70 mm[Hg] Kb Lackey MD Work Phone: [facility] 06-17-2022 10:16-0400 Heart rate 64 /min Kb Lackey MD Work Phone: [facility] 06-17-2022 10:16-0400 Systolic blood pressure 122 mm[Hg] Kb Lackey MD Work Phone: [facility] 06-07-2022 16:32-0500 Body temperature 98.1 [degF] Dr. Kb Lackey Work Phone: [facility] 06-07-2022 16:32-0500 Diastolic blood pressure 56 mm[Hg] Dr. Kb Lackey Work Phone: [facility] 06-07-2022 16:32-0500 Heart rate 72 /min Dr. Kb Lackey Work Phone: 2(665)553-793594 [place] [address] 06-07-2022 16:32-0500 Respiratory rate 18 /min Dr. Kb Lackey Work Phone: 7(069)850-822250 [place] [address] 06-07-2022 16:32-0500 SaO2% (BldA) [Mass fraction] 94 % Dr. Kb Lackey Work Phone: 8(958)188-898050 [place] [address] 06-07-2022 16:32-0500 Systolic blood pressure 94 mm[Hg] Dr. Kb Lackey Work Phone: 7(548)541-897550 [place] [address] 06-06-2022 14:58-0500 Body height 177.[address] Kb Lackey Work Phone: 1(371)399-950350 [place] [address] 06-06-2022 14:58-0500 Body weight 67.[address] Kb Lackey Work Phone: 5(031)631-281850 [place] [address] 06-05-2022 23:19-0500 Body mass index (BMI) [Ratio] 21.2 kg/m2 Dr. Kb Lackey Work Phone: 4(981)939-607150 [place] [address] 06-05-2022 22:37-0500 Body temperature 99.5 [degF] Dr. Kb Lackey Work Phone: 1(145)961-813450 [place] [address] 06-05-2022 22:37-0500 Diastolic blood pressure 60 mm[Hg] Dr. Kb Lackey Work Phone: 6(441)019-215850 [place] [address] 06-05-2022 22:37-0500 Heart rate 107 /min Dr. Kb Lackey Work Phone: 6(468)360-102250 [place] [address] 06-05-2022 22:37-0500 Respiratory rate 16 /min Dr. Kb Lackey Work Phone: 4(350)391-595250 [place] [address] 06-05-2022 22:37-0500 SaO2% (BldA) [Mass fraction] 94 % Dr. Kb Lackey Work Phone: 3(026)688-868850 [place] [address] 06-05-2022 22:37-0500 Systolic blood pressure 100 mm[Hg] Dr. Kb Lackey Work Phone: 2(038)297-847850 [place] [address] 06-05-2022 18:27-0500 Body mass index (BMI) [Ratio] 22.2 kg/m2 Dr. Kb Lackey Work Phone: 2(740)824-361850 [place] [address] 06-05-2022 18:27-0500 Body weight 70.[address] Kb Lackey Work Phone: 7(071)426-648250 [place] [address] 06-05-2022 16:31-0500 Body height 177.[address] Kb Lackey Work Phone: 6(873)930-426850 [place] [address] 05-07-2022 08:50-0500 Body mass index (BMI) [Ratio] 21.4 kg/m2 Dr. Kb Lackey Work Phone: 1(726)636-727150 [place] [address] 05-07-2022 08:50-0500 Body temperature 95.4 [degF] Dr. Kb Lackey Work Phone: 8(362)354-898750 [place] [address] 05-07-2022 08:50-0500 Body weight 67.[address] Kb Lackey Work Phone: 1(928)931-909750 [place] [address] 05-07-2022 08:50-0500 Diastolic blood pressure 79 mm[Hg] Dr. Kb Lackey Work Phone: 3(724)609-536550 [place] [address] 05-07-2022 08:50-0500 Heart rate 65 /min Dr. Kb Lackey Work Phone: 2(382)245-281350 [place] [address] 05-07-2022 08:50-0500 Respiratory rate 18 /min Dr. Kb Lackey Work Phone: 6(019)508-906450 [place] [address] 05-07-2022 08:50-0500 SaO2% (BldA) [Mass fraction] 94 % Dr. Kb Lackey Work Phone: 6(236)339-486950 [place] [address] 05-07-2022 08:50-0500 Systolic blood pressure 146 mm[Hg] Dr. Kb Lackey Work Phone: 4(901)451-797950 [place] [address] 03-18-2022 08:24-0500 Body mass index (BMI) [Ratio] 20.9 kg/m2 Dr. Kb Lackey Work Phone: 9(854)846-516050 [place] [address] 03-18-2022 08:24-0500 Body temperature 96.4 [degF] Dr. Kb Lackey Work Phone: [facility] 03-18-2022 08:24-0500 Body weight 66.[address] Kb Lackey Work Phone: [facility] 03-18-2022 08:24-0500 Diastolic blood pressure 75 mm[Hg] Dr. Kb Lackey Work Phone: [facility] 03-18-2022 08:24-0500 Heart rate 67 /min Dr. Kb Lackey Work Phone: [facility] 03-18-2022 08:24-0500 Respiratory rate 18 /min Dr. Kb Lackey Work Phone: [facility] 03-18-2022 08:24-0500 SaO2% (BldA) [Mass fraction] 97 % Dr. Kb Lackey Work Phone: [facility] 03-18-2022 08:24-0500 Systolic blood pressure 119 mm[Hg] Dr. Kb Lackey Work Phone: [facility] 12-18-2021 15:52-0400 Body height 177.8 cm Kb Lackey MD Work Phone: [facility] 12-18-2021 15:52-0400 Body weight 64.5 kg Kb Lackey MD Work Phone: [facility] 12-18-2021 15:52-0400 Diastolic blood pressure 70 mm[Hg] Kb Lackey MD Work Phone: [facility] 12-18-2021 15:52-0400 Heart rate 48 /min Kb Lackey MD Work Phone: [facility] 12-18-2021 15:52-0400 SaO2% (BldA) [Mass fraction] 92 % Kb Lackey MD Work Phone: [facility] 12-18-2021 15:52-0400 Systolic blood pressure 120 mm[Hg] Kb Lackey MD Work Phone: [facility] Encounters Encounter Date Encounter Type Care Provider Facility Start: 12-03-2024 End: 12-03-2024 ambulatory Kb Lackey MD Work Phone: [facility] Comment on above: Allied Health Visit (Medication Adherence Outreach ) Refill Request Start: 11-22-2024 End: 11-22-2024 Chart abstracting Kb Lackey MD Work Phone: [facility] [place] Start: 11-22-2024 End: 11-22-[address] Salvador Kemp MD -[facility] Work Phone: Start: 11-22-2024 End: 11-22-[address] Kb Lackey MD Work Phone: -[facility] Start: 11-20-2024 End: 11-22-2024 Refill Kb Lackey MD Work Phone: [facility] [place] Comment on above: Refill Request Start: 09-16-2024 End: 09-17-2024 Follow-up encounter Kb Lackey MD Work Phone: Pul[facility]ology [facility] Start: 09-15-2024 End: 09-15-2024 ambulatory KB LACKEY Facility:[facility] Start: 09-15-2024 End: 09-15-2024 Patient encounter procedure Kb Lackey MD Work Phone: [facility] [place] Comment on above: Anemia, unspecified type (Primary Dx); Microscopic hematuria; Type 2 diabetes mellitus with stage 3a chronic kidney disease, without long-term current use of insulin (HCC); Essential hypertension, benign; Vitamin B12 deficiency; Hypothyroidism, acquired Start: 09-15-2024 End: 09-15-2024 ambulatory KB LACKEY Facility:[facility] Start: 08-19-2024 End: 08-19-2024 ambulatory Cahchomariya Zepedago [facility] Work Phone: [facility] Start: 08-19-2024 End: 08-19-2024 Patient encounter procedure Chachomariya Zepedago [facility] Work Phone: [facility] Start: 08-09-2024 End: 08-09-2024 Telephone encounter Kb Lackey MD Work Phone: [facility] Comment on above: Results Start: 08-06-2024 End: 08-06-2024 ambulatory KB LACKEY Facility:[facility] Start: 08-03-2024 End: 08-03-2024 ambulatory [facility] Facility[facility] Start: 08-03-2024 End: 08-03-2024 Patient encounter procedure Kb Lackey MD Work Phone: [facility] Comment on above: Urinary tract infect ion with hematuria, site unspecified (Primary Dx); Type 2 diabetes mellitus with stage 3a chronic kidney disease, without long-term current use of insulin (HCC); Hypothyroidism, unspecified type; Vitamin B12 deficiency; Iron deficiency anemia, unspecified iron deficiency anemia type; Renal insufficiency; Hypoglycemia; Anemia, unspecified type Start: 08-03-2024 End: 08-03-2024 ambulatory [facility] Facility:[facility] Start: 07-28-2024 Non-patient / Non-visit Dr. Crut Buenrostro DO [facility] Work Phone: Start: 07-27-2024 Non-patient / Non-visit Dr. Curt Buenrostro DO [facility] Work Phone: Start: 07-26-2024 ambulatory [facility] Facility:[facility] Start: 07-26-2024 End: 07-28-2024 Evaluation and management of inpatient Dr. Dennys Buenrostro DO -[facility] Work Phone: Start: 07-09-2024 End: 07-09-2024 ambulatory Kb Lackey MD Work Phone: [facility] [place] Start: 07-09-2024 End: 07-09-2024 Patient encounter procedure Kb Lackey MD Work Phone: [facility] Comment on above: Population Health Na vigation Outreach (Edna Virk ) Start: 06-22-2024 End: 06-22-2024 ambulatory [facility] Facility:[facility] Start: 05-29-2024 End: 05-31-2024 Refill Kb Lackey MD Work Phone: [facility] [place] Comment on above: Refill Request Start: 05-19-2024 End: 05-19-2024 Chart abstracting Kb Lackey MD Work Phone: [facility] Start: 05-18-2024 End: 05-18-2024 ambulatory Salvador Justo Facility:[facility] Start: 03-05-2024 End: 03-05-2024 ambulatory Kianna Barnett RN Work Phone: [employer] Comment on above: community monitoring (CDM telephonic/) Start: 02-05-2024 End: 02-05-2024 ambulatory Kianna Barnett RN Work Phone: [facility] Comment on above: community monitoring (CDM telephonic/) Start: 01-29-2024 End: 01-29-2024 Telephone encounter bK Lackey MD Work Phone: [facility] [place] Comment on above: Results Start: 01-28-2024 End: 01-28-2024 Patient encounter procedure Kb Lackey MD Work Phone: [facility] [place] Comment on above: Essential hypertensi on, benign (Primary Dx); Vitamin B12 deficiency; Chronic renal insufficiency, stage 3 (moderate) (HCC); Hypothyroidism, unspecified type; Type 2 diabetes mellitus without complication, without long-term current use of insulin (HCC); Iron deficiency anemia, unspecified iron deficiency anemia type; Vitamin D deficiency; Encounter for immunization Start: 01-08-2024 End: 01-08-2024 ambulatory Kianna Barnett RN Work Phone: [facility] [employer] Comment on above: community monitoring (CDM telephonic/) Start: 12-17-2023 End: 12-17-2023 Refill Kb Lackey MD Work Phone: [facility] [place] Comment on above: Refill Request Start: 12-11-2023 End: 12-11-2023 ambulatory Kianna Barnett RN Work Phone: [facility] [employer] Comment on above: community monitoring (CDM telephonic/) Start: 11-28-2023 End: 11-28-2023 Refill Kb Lackey MD Work Phone: [facility] [place] Comment on above: Refill Request Start: 11-26-2023 End: 11-26-2023 Chart abstracting Kb Lackey MD Work Phone: [facility] [place] Start: 11-25-2023 End: 11-25-2023 ambulatory Salvador Justo Facility:[facility] Start: 11-13-2023 ambulatory Kianna mejias RN Work Phone: [facility] Comment on above: community monitoring (CDM telephonic/) Start: 09-18-2023 ambulatory Kianna mejias RN Work Phone: [facility] Comment on above: community monitoring (CDM telephonic/) Start: 09-02-2023 Telephone encounter Kb Lackey MD Work Phone: [facility] [place] Comment on above: Consult Start: 08-26-2023 Telephone encounter Jeni Graham APRN.BREAST SPLITTER Work Phone: [facility] [place] Comment on above: Appointment (Infecti ous Diseases Dr Didier Man @ [facility] on 09/01 next week /) Start: 08-25-2023 Telephone encounter Jeni Graham APRN.BREAST SPLITTER Work Phone: [facility] [place] Comment on above: Appointment Start: 08-21-2023 ambulatory Kianna mejias RN Work Phone: [facility] [employer] Comment on above: COMMUNITY MONITORING (CDM telephonic/) Start: 07-28-2023 Telephone encounter Kb Lackey MD Work Phone: [facility] [place] Comment on above: Results Start: 07-26-2023 End: 07-26-2023 Patient encounter procedure Kb Lackey MD Work Phone: [facility] [place] Comment on above: Essential hypertensi on, benign (Primary Dx); Tremor; Chronic renal insufficiency, stage 3 (moderate) (HCC); Type 2 diabetes mellitus without complication, without long-term current use of insulin (HCC); Hypothyroidism, unspecified type; Vitamin D deficiency; Iron deficiency anemia, unspecified iron deficiency anemia type; Renal insufficiency Start: 07-24-2023 ambulatory Kianna mejias RN Work Phone: [facility] Comment on above: community monitoring (CDM telephonic/) Start: 06-26-2023 Refill Kb Lackey MD Work Phone: [facility] Comment on above: Refill Request community monitoring (CDM telephonic/) Start: 06-11-2023 Chart abstracting Kb Cleveland MD Work Phone: [facility] [place] Start: 03-03-2023 ambulatory Kianna mejias RN Work Phone: [facility] [employer] [facility] Comment on above: community monitoring (CDM telephonic/) Start: 01-27-2023 End: 01-27-2023 Nursing evaluation of patient and report Mi Nurse Work Phone: [facility] Comment on above: Essential hypertensi on, benign (Primary Dx) Start: 01-10-2023 ambulatory Kianna mejias RN Work Phone: [facility] [employer] Comment on above: community monitoring (CDM telephonic/) Start: 12-24-2022 Telephone encounter Kb Lackey MD Work Phone: [facility] Comment on above: Results Start: 12-23-2022 End: 12-23-2022 Patient encounter procedure Kb Lackey MD Work Phone: [facility] Comment on above: Type 2 diabetes jordan itus without complication, without long- term current use of insulin (HCC) (Primary Dx); Essential hypertension, benign; Chronic renal insufficiency, stage 3 (moderate) (HCC); Vitamin B12 deficiency; Tremor; Vitamin D deficiency Start: 12-13-2022 ambulatory Kianna mejias RN Work Phone: [facility] [employer] Comment on above: community monitoring (CDM telephonic/) Refill Request Start: 11-15-2022 ambulatory Kianna mejias RN Work Phone: [facility] Comment on above: community monitoring Start: 10-18-2022 ambulatory Kianna mejias RN Work Phone: [facility] Comment on above: community monitoring (CDM telephonic/) Start: 09-20-2022 ambulatory Maribelllina Titus R N Work Phone: [facility] Comment on above: CDM (Check in call/) Start: 07-25-2022 ambulatory Maribelllina Titus R N Work Phone: [facility] Comment on above: CDM (Check in call/) Start: 07-17-2022 Chart abstracting Kb Cleveland MD Work Phone: [facility] Start: 07-16-2022 ambulatory Kb Lackey MD Work Phone: [facility] [place] Start: 07-02-2022 Telephone encounter Kb Lackey MD Work Phone: [facility] Comment on above: Results Start: 06-26-2022 ambulatory Maribell Titus R N Work Phone: [facility] [employer] Comment on above: CDM (Check in call/) Start: 06-17-2022 End: 06-17-2022 Patient encounter procedure Kb Lackey MD Work Phone: [facility] Comment on above: Sepsis, due to unspe cified organism, unspecified whether acute organ dysfunction present (HCC) (Primary Dx); Dehydration; Essential hypertension, benign; Hypothyroidism, unspecified type; Type 2 diabetes mellitus without complication, without long-term current use of insulin (HCC) Start: 06-12-2022 Telephone encounter Kb Lackey MD Work Phone: [facility] Comment on above: Patient Update Start: 06-10-2022 Patient Outreach Kb bravo MD Work Phone: [facility] Comment on above: Transition Of Care Start: 06-06-2022 Non-patient / Non-visit Dr. Domenico Lackey Work Phone: [facility] Start: 06-06-2022 ambulatory Maribell Titus R N Work Phone: [facility] [employer] Comment on above: CDM (Check in call/) Start: 06-05-2022 Non-patient / Non-visit Dr. Domenico Lackey Work Phone: [facility] Start: 06-05-2022 End: 06-07-2022 Evaluation and management of inpatient Dr. Kb Lackey Work Phone: [facility] Start: 05-08-2022 ambulatory Maribell Danielson Work Phone: [employer] Comment on above: CDM (Check in call/) Start: 05-07-2022 End: 05-07-[address] Kb Lackey Work Phone: [facility] Start: 04-25-2022 Refill Kb Lackey MD Work Phone: [facility] Comment on above: Refill Request Start: 04-10-2022 ambulatory Maribell Danielson Work Phone: [employer] Comment on above: CDM (Check in call/) Start: 03-18-2022 End: 03-18-[address] Kb Lackey Work Phone: [facility] Start: 03-12-2022 ambulatory Maribell Danielson Work Phone: [employer] [facility] Comment on above: CDM (Check in call/) Start: 02-07-2022 Refill Kb Lackey MD Work Phone: [facility] Comment on above: Refill Request Start: 02-04-2022 Telephone encounter Kb Lackey MD Work Phone: [facility] Comment on above: Results Start: 01-11-2022 ambulatory Maribell Danielson Work Phone: [employer] [facility] Comment on above: Community Monitoring Outreach (inSight check in call/) Start: 01-02-2022 Chart abstracting Kb Cleveland MD Work Phone: [facility] Start: 12-19-2021 Telephone encounter Kb Lackey MD Work Phone: [facility] [place] Comment on above: Results Start: 12-18-2021 End: 12-18-2021 Patient encounter procedure Kb Lackey MD Work Phone: [facility] [place] Comment on above: Hypothyroidism, unsp ecified type (Primary Dx); Essential hypertension, benign; Type 2 diabetes mellitus without complication, without long-term current use of insulin (HCC) Start: 12-13-2021 ambulatory Maribell Delong N Work Phone: [employer] [facility] Comment on above: community monitoring outreach (inSight enrollment with [facility] introduction/) Start: 12-05-2021 ambulatory Maribell Titus R N Work Phone: [employer] Comment on above: community monitoring outreach [...] [facility] Provider Start: 07-17-2022 Lipid panel Salvador yap MD Work Phone: Start: 07-17-2022 Thyrotropin [Units/v [...] EST Office Visit [facility] [address] [place] [id number] Kb Lackey MD [address] [place] [id number] Physical [facility] [place] Comment on above: Physical Start: 02-22-2025 Hemoglobin A1c measurement HbA1C [facility] Start: 01-27-2025 Covid-19 Vaccine ( season) Covid-19 Vaccine ( season) [facility] Comment on above: Postponed from 12/06 (Declined at this time) Start: 01-27-2025 Shingrix Vaccine (2 of 3) Valenzuela grix Vaccine (2 of 3) [facility] Comment on above: Postponed from 01/16 (Declined at this time) Start: 12-06-2024 Influenza vaccination [facility] Start: 11-23-2024 End: 11-23-2024 Patient encounter procedure Urology Comment on above: Microscopic hematuri a CONSULT: Microscopic hematuria. PCP Referred. [facility] Start: 10-04-2024 Influenza vaccination Influenza Vacc ine (#1) [facility] Comment on above: Postponed from 12/06 (Declined at this time) Start: 09-15-2024 End: 09-15-2024 Patient encounter procedure 09/15/2024 2:20 PM EDT Office Visit [facility] [place] [address] [place], [place] [phone] Kb Lackey MD [address] [place], [place] [id number] 6 week follow up [facility] [place] Comment on above: 6 week follow up Start: 09-15-2024 End: 12-15-2024 Thyrotropin [Units/volume] in Serum or Plasma [facility] Work Phone: Comment on above: Expected: 09/15/2024 , Expires: 12/15/2024 Start: 08-15-2024 Hemoglobin A1c measurement HbA1C [facility] Start: 08-09-2024 End: 11-08-2024 CBC W Auto Differential panel - Blood COMPLETE BLOOD COUNT AND DIFFERENTIAL Lab Routine Anemia, unspecified type Expected: 08/09/2024, Expires: 11/08/2024 [facility] Comment on above: Expected: 08/09/2024 , Expires: 11/08/2024 Start: 08-09-2024 End: 11-08-2024 Ferritin [Mass/volume] in Serum or Plasma FERRITIN Lab Routine Anemia, unspecified type Expected: 08/09/2024, Expires: 11/08/2024 [facility] Comment on above: Expected: 08/09/2024 , Expires: 11/08/2024 Start: 08-09-2024 End: 11-08-2024 Iron and Iron binding capacity panel - Serum or Plasma IRON AND TIBC Lab Routine Anemia, unspecified type Expected: 08/09/2024, Expires: 11/08/2024 [facility] Comment on above: Expected: 08/09/2024 , Expires: 11/08/2024 Start: 08-06-2024 End: 11-05-2024 Bacteria identified in Urine by Culture BACTERIAL CULTURE, URINE Microbiology Routine Urinary tract infection with hematuria, site unspecified Expected: 08/06/2024, Expires: 11/05/2024 [facility] Comment on above: Expected: 08/06/2024 , Expires: 11/05/2024 Start: 08-06-2024 End: 11-05-2024 Basic metabolic 2000 panel - Serum or Plasma BASIC METABOLIC PANEL Lab Routine Renal insufficiency Anemia, unspecified type Expected: 08/06/2024, Expires: 11/05/2024 [facility] Comment on above: Expected: 08/06/2024 , Expires: 11/05/2024 Start: 08-06-2024 End: 08-03-2025 CBC W Auto Differential panel - Blood COMPLETE BLOOD COUNT AND DIFFERENTIAL Lab Routine Anemia, unspecified type Expected: 08/06/2024, Expires: 08/03/2025 [facility] Work Phone: Comment on above: Expected: 08/06/2024 , Expires: 08/03/2025 Start: 08-06-2024 End: 08-03-2025 Cobalamin (Vitamin B12) [Mass/volume] in Serum or Plasma VITAMIN B12 Lab Routine Vitamin B12 deficiency Anemia, unspecified type Expected: 08/06/2024, Expires: 08/03/2025 [facility] Comment on above: Expected: 08/06/2024 , Expires: 08/03/2025 Start: 08-06-2024 End: 08-03-2025 Ferritin [Mass/volume] in Serum or Plasma FERRITIN Lab Routine Iron deficiency anemia, unspecified iron deficiency anemia type Anemia, unspecified type Expected: 08/06/2024, Expires: 08/03/2025 [facility] Comment on above: Expected: 08/06/2024 , Expires: 08/03/2025 Start: 08-06-2024 End: 08-03-2025 Folate [Mass/volume] in Serum or Plasma FOLATE, SERUM Lab Routine Vitamin B12 deficiency Anemia, unspecified type Expected: 08/06/2024, Expires: 08/03/2025 [facility] Comment on above: Expected: 08/06/2024 , Expires: 08/03/2025 Start: 08-06-2024 End: 08-03-2025 Iron and Iron binding capacity panel - Serum or Plasma IRON AND TIBC Lab Routine Iron deficiency anemia, unspecified iron deficiency anemia type Anemia, unspecified type Expected: 08/06/2024, Expires: 08/03/2025 [facility] Comment on above: Expected: 08/06/2024 , Expires: 08/03/2025 Start: 08-06-2024 End: 11-05-2024 Urinalysis complete panel - Urine URINALYSIS, WITH MICROSCOPIC Lab Routine Urinary tract infection with hematuria, site unspecified Expected: 08/06/2024, Expires: 11/05/2024 [facility] Comment on above: Expected: 08/06/2024 , Expires: 11/05/2024 Start: 08-02-2024 End: 08-02-2024 Patient encounter procedure 08/02/2024 10:20 AM EDT Office Visit [facility] [address] [place] [address] Kb Lackey MD [address] [place] [address] 6 month follow up [facility] [place] Comment on above: 6 month follow up Start: 07-28-2024 Patient discharge [facility] Start: 07-27-2024 [facility] Start: 07-26-2024 Application of intermittent pneumatic compression device [facility] Start: 07-26-2024 Following clinical pathway protocol [facility] Start: 07-26-2024 Assessment of risk o f venous thromboembolism [facility] Start: 07-26-2024 Care regimes management [facility] Start: 07-26-[address] [facility] Start: 07-26-2024 Insertion of cathete r into peripheral vein [facility] Start: 07-26-2024 Measuring intake and output [facility] Start: 07-26-2024 Notification of physician [facility] Start: 07-26-2024 Oxygen therapy [facility] Start: 07-26-2024 Providing care accor ding to standard [facility] Start: 07-26-2024 Provision of activit y privileges [facility] Start: 07-26-2024 Referral to service [facility] Start: 07-26-2024 End: 07-26-2024 [facility] Start: 07-26-2024 Admission procedure [facility] Start: 07-26-2024 [facility] Start: 07-26-2024 Patient referral to dietitian [facility] Start: 07-25-2024 Annual PCP Team Butcher Meat levi Disease Visit Annual PCP Team Chronic Disease Visit [facility] Start: 07-25-2024 Anxiety Screening Anxiety Screening [facility] Start: 07-25-2024 Creatinine measurement Serum Creatin ine [facility] Start: 07-25-2024 Depression Screening Depression Scre ening [facility] Start: 07-25-2024 Diabetic foot examination Diabetic F oot Exam [facility] Start: 07-25-2024 RSV Vaccine (1 - 1-d ose 60+ series) RSV Vaccine (1 - 1-dose 60+ series) [facility] Comment on above: Postponed from 11/18 (Declined at this time) Start: 07-25-2024 RSV Vaccine (1 - 1-d ose 75+ series) RSV Vaccine (1 - 1-dose 75+ series) [facility] Comment on above: Postponed from 11/18 (Declined at this time) Start: 07-09-2024 End: 10-08-2024 Basic metabolic 2000 panel - Serum or Plasma BASIC METABOLIC PANEL Lab Routine Type 2 diabetes mellitus with stage 3a chronic kidney disease, without long-term current use of insulin (HCC) Expected: 07/09/2024, Expires: 10/08/2024 [facility] Work Phone: Comment on above: Expected: 07/09/2024 , Expires: 10/08/2024 Start: 07-09-2024 End: 10-08-2024 Microalbumin/Creatinine [Mass Ratio] in Urine ALBUMIN/CREATININE RATIO, URINE Lab Routine Type 2 diabetes mellitus with stage 3a chronic kidney disease, without long-term current use of insulin (HCC) Expected: 07/09/2024, Expires: 10/08/2024 [facility] Comment on above: Expected: 07/09/2024 , Expires: 10/08/2024 Start: 06-10-2024 Creatinine measurement Serum Creatin ine [facility] Start: 06-10-2024 Hepatitis B screening Urine Albumin:Creatinine Ratio [facility] Start: 06-10-2024 Hepatitis B surface antibody level LDL Cholesterol [facility] Start: 04-07-2024 Advance Directive Discussion Advance Directive Discussion [facility] Start: 04-07-2024 Medicare Advantage A nnual Wellness Visit Medicare Advantage Annual Wellness Visit [facility] Start: 02-25-2024 Hemoglobin A1c measurement HbA1C [facility] Start: 01-29-2024 End: 04-29-2024 Basic metabolic 2000 panel - Serum or Plasma BASIC METABOLIC PANEL Lab Routine Vitamin B12 deficiency Chronic renal insufficiency, stage 3 (moderate) (HCC) Iron deficiency anemia, unspecified iron deficiency anemia type Expected: 01/29/2024, Expires: 04/29/2024 [facility] Comment on above: Expected: 01/29/2024 , Expires: 04/29/2024 Start: 01-29-2024 End: 04-29-2024 CBC W Auto Differential panel - Blood COMPLETE BLOOD COUNT AND DIFFERENTIAL Lab Routine Vitamin B12 deficiency Chronic renal insufficiency, stage 3 (moderate) (HCC) Iron deficiency anemia, unspecified iron deficiency anemia type Expected: 01/29/2024, Expires: 04/29/2024 [facility] Work Phone: Comment on above: Expected: 01/29/2024 , Expires: 04/29/2024 Start: 01-29-2024 End: 04-29-2024 Ferritin [Mass/volume] in Serum or Plasma FERRITIN Lab Routine Vitamin B12 deficiency Chronic renal insufficiency, stage 3 (moderate) (HCC) Iron deficiency anemia, unspecified iron deficiency anemia type Expected: 01/29/2024, Expires: 04/29/2024 [facility] Comment on above: Expected: 01/29/2024 , Expires: 04/29/2024 Start: 01-29-2024 End: 04-29-2024 Folate [Mass/volume] in Serum or Plasma FOLATE, SERUM Lab Routine Vitamin B12 deficiency Expected: 01/29/2024, Expires: 04/29/2024 [facility] Comment on above: Expected: 01/29/2024 , Expires: 04/29/2024 Start: 01-29-2024 End: 04-29-2024 Iron and Iron binding capacity panel - Serum or Plasma IRON AND TIBC Lab Routine Vitamin B12 deficiency Chronic renal insufficiency, stage 3 (moderate) (HCC) Iron deficiency anemia, unspecified iron deficiency anemia type Expected: 01/29/2024, Expires: 04/29/2024 [facility] Comment on above: Expected: 01/29/2024 , Expires: 04/29/2024 Start: 01-28-2024 End: 04-28-2024 25-hydroxyvitamin D3 [Mass/volume] in Serum or Plasma [facility] Comment on above: Expected: 01/28/2024 , Expires: 04/28/2024 Start: 01-28-2024 End: 04-28-2024 Basic metabolic 2000 panel - Serum or Plasma [facility] Comment on above: Expected: 01/28/2024 , Expires: 04/28/2024 Start: 01-28-2024 BP Controlled (<130/80) BP Controlle d (<130/80) [facility] Start: 01-28-2024 End: 04-28-2024 CBC W Auto Differential panel - Blood [facility] Comment on above: Expected: 01/28/2024 , Expires: 04/28/2024 Start: 01-28-2024 End: 04-28-2024 Cobalamin (Vitamin B12) [Mass/volume] in Serum or Plasma [facility] Work Phone: Comment on above: Expected: 01/28/2024 , Expires: 04/28/2024 Start: 01-28-2024 End: 01-28-2024 Patient encounter procedure 01/28/2024 9:40 AM EDT Office Visit [facility] [address] [place], [place] [id number] Kb Lackey MD [address] [facility] [place] [id number] 6 mo follow up [facility] Comment on above: 6 mo follow up Start: 12-24-2023 Annual PCP Team Butcher Meat levi Disease Visit Annual PCP Team Chronic Disease Visit [facility] Start: 12-24-2023 Covid-19 Vaccine (#1) Covid-19 Vacci ne (#1) [facility] Comment on above: Postponed from 05/21 (Declined at this time) Start: 12-24-2023 Covid-19 Vaccine ( season) Covid-19 Vaccine ( season) [facility] Comment on above: Postponed from 12/06 (Declined at this time) Start: 12-24-2023 Hepatitis B Vaccine (1 of 3 - Risk 3-dose series) Hepatitis B Vaccine (1 of 3 - Risk 3-dose series) [facility] Comment on above: Postponed from 11/18 (Declined at this time) Start: 12-24-2023 Serum Creatinine Serum Creatinine [facility] Start: 12-24-2023 Shingrix Vaccine (2 of 3) Valenzuela grix Vaccine (2 of 3) [facility] Comment on above: Postponed from 01/16 (Declined at this time) Start: 12-24-2023 Urine microalbumin profile DTaP,Tdap,Td Vaccine (1 - Tdap) [facility] Comment on above: Postponed from 12/31 (Declined at this time) Start: 12-07-2023 Covid-19 Vaccine ( season) Covid-19 Vaccine ( season) [facility] Start: 12-07-2023 Covid-19 Vaccine ( season) Covid-19 Vaccine ( season) [facility] Start: 12-07-2023 Influenza vaccination [facility] Start: 11-11-2023 End: 11-11-2023 Patient encounter procedure 11/11/2023 11:00 AM EDT Office Visit [facility] [address] [place] [address] Didier Man DO [address] [place] [address] Recurrent UTI (urinary tract infection) [N39.0] [facility] Comment on above: Recurrent UTI (urina ry tract infection) [N39.0] Start: 10-05-2023 Influenza vaccination Influenza Vacc ine (#1) [facility] Comment on above: Postponed from 12/06 (Declined at this time) Start: 09-11-2023 Hemoglobin A1c measurement HbA1C [facility] Start: 09-10-2023 Hemoglobin A1c measurement HbA1C [facility] Start: 07-28-2023 End: 10-27-2023 Bacteria identified in Urine by Culture URINE CULTURE Microbiology Routine Proteinuria, unspecified type Pyuria Expected: 07/28/2023, Expires: 10/27/2023 [facility] Comment on above: Expected: 07/28/2023 , Expires: 10/27/2023 Start: 07-28-2023 End: 10-27-2023 Urinalysis complete panel - Urine URINALYSIS, WITH MICROSCOPIC Lab Routine Proteinuria, unspecified type Pyuria Expected: 07/28/2023, Expires: 10/27/2023 [facility] Work Phone: Comment on above: Expected: 07/28/2023 , Expires: 10/27/2023 Start: 07-26-2023 End: 10-25-2023 Basic metabolic 2000 panel - Serum or Plasma [facility] Work Phone: Comment on above: Expected: 07/26/2023 , Expires: 10/25/2023 Start: 07-26-2023 End: 10-25-2023 CBC W Auto Differential panel - Blood [facility] Work Phone: Comment on above: Expected: 07/26/2023 , Expires: 10/25/2023 Start: 07-26-2023 End: 10-25-2023 Urinalysis complete panel - Urine URINALYSIS, WITH MICROSCOPIC Lab Routine Renal insufficiency Expected: 07/26/2023, Expires: 10/25/2023 [facility] Work Phone: Comment on above: Expected: 07/26/2023 , Expires: 10/25/2023 Start: 07-18-2023 Hepatitis B surface antibody level LDL Cholesterol [facility] Start: 07-03-2023 Complete blood count Hemoglobin/Kashif tocrit [facility] Start: 06-18-2023 ANNUAL PCP TEAM DIAGRAMMER LEVI DISEASE VISIT ANNUAL PCP TEAM CHRONIC DISEASE VISIT [facility] Start: 06-18-2023 BP CONTROLLED (<130/80) BP CONTROLLE D (<130/80) [facility] Start: 06-18-2023 SERUM CREATININE SERUM CREATININE [facility] Start: 04-07-2023 Advance Directive Discussion Advance Directive Discussion [facility] Start: 04-07-2023 Behavioral Health Screening Behavioral Health Screening [facility] Start: 04-07-2023 Depression Assessment Depression Ass essment [facility] Start: 01-22-2023 End: 03-24-2023 Basic metabolic 2000 panel - Serum or Plasma BASIC METABOLIC PNL Lab Routine Essential hypertension, benign Chronic renal insufficiency, stage 3 (moderate) (HCC) Expected: 01/22/2023, Expires: 03/24/2023 [facility] Work Phone: Comment on above: Expected: 01/22/2023 , Expires: 03/24/2023 Start: 01-22-2023 End: 03-24-2023 Cobalamin (Vitamin B12) [Mass/volume] in Serum or Plasma VITAMIN B12 BLOOD Lab Routine Vitamin D deficiency Expected: 01/22/2023, Expires: 03/24/2023 [facility] Work Phone: Comment on above: Expected: 01/22/2023 , Expires: 03/24/2023 Start: 12-18-2022 3 comp foot exam completed DIABETIC FOOT EXAM [facility] Start: 12-18-2022 Adult depression screening assessment DEPRESSION SCREENING [facility] Start: 12-18-2022 ANNUAL PCP TEAM DIAGRAMMER LEVI DISEASE VISIT ANNUAL PCP TEAM CHRONIC DISEASE VISIT [facility] Start: 12-18-2022 BP CONTROLLED (<130/80) BP CONTROLLE D (<130/80) [facility] Start: 12-18-2022 COVID-19 VACCINE (#1) COVID-19 VACCI NE (#1) [facility] Comment on above: Postponed from 05/21 (Declined at this time) Start: 12-18-2022 Diabetic foot examination Diabetic F oot Exam [facility] Start: 12-13-2022 SERUM CREATININE SERUM CREATININE [facility] Start: 12-06-2022 Influenza vaccination [facility] Start: 10-04-2022 Influenza vaccination INFLUENZA (#1) [facility] Comment on above: Postponed from 12/06 (Declined at this time) Start: 07-16-2022 End: 09-15-2022 ALBUMIN/CREAT RATIO RND UR ALBUMIN/CREAT RATIO RND UR Lab Routine Diabetes mellitus ([facility]) Expected: 07/16/2022, Expires: 09/15/2022 [facility] Work Phone: Comment on above: Expected: 07/16/2022 , Expires: 09/15/2022 Start: 07-16-2022 End: 09-15-2022 Hemoglobin A1c in Blood HGB A1C Lab Routine Diabetes mellitus ([facility]) Expected: 07/16/2022, Expires: 09/15/2022 [facility] Work Phone: Comment on above: Expected: 07/16/2022 , Expires: 09/15/2022 Start: 06-17-2022 End: 08-17-2022 Basic metabolic 2000 panel - Serum or Plasma [facility] Work Phone: Comment on above: Expected: 06/17/2022 , Expires: 08/17/2022 Start: 06-17-2022 End: 08-17-2022 CBC W Auto Differential panel - Blood [facility] Work Phone: Comment on above: Expected: 06/17/2022 , Expires: 08/17/2022 Start: 06-16-2022 Hemoglobin A1c/Hemoglobin.total in Blood HBA1C [facility] Start: 06-15-2022 ANNUAL PCP TEAM DIAGRAMMER LEVI DISEASE VISIT ANNUAL PCP TEAM CHRONIC DISEASE VISIT [facility] Start: 06-07-2022 Patient discharge [facility] Start: 06-06-2022 Referral to occupati onal therapist [facility] Start: 06-06-2022 Referral to service [facility] Start: 06-05-2022 Following clinical pathway protocol [facility] Start: 06-05-2022 Assessment of risk o f venous thromboembolism [facility] Start: 06-05-2022 Cardiac monitoring [facility] Start: 06-05-2022 Care regimes management [facility] Start: 06-05-2022 Catheterization of vein [facility] Start: 06-05-2022 Inhalation therapy procedure [facility] Start: 06-05-2022 Insertion of cathete r into peripheral vein [facility] Start: 06-05-2022 Measuring intake and output [facility] Start: 06-05-2022 Notification of physician [facility] Start: 06-05-2022 Oxygen therapy [facility] Start: 06-05-2022 Providing care accor ding to standard [facility] Start: 06-05-2022 Provision of activit y privileges [facility] Start: 06-05-2022 [facility] Start: 06-05-[address] [facility] Start: 06-05-2022 Admission procedure [facility] Start: 06-05-2022 [facility] Start: 06-05-2022 End: 06-05-2022 Blood culture [facility] Start: 06-05-2022 [facility] Start: 06-05-2022 Patient referral to dietitian [facility] Start: 05-02-2022 Hepatitis B screening URINE ALBUMIN:CREATININE RATIO [facility] Start: 05-02-2022 Hepatitis B surface antibody level LDL CHOLESTEROL [facility] Start: 05-02-2022 SERUM CREATININE SERUM CREATININE [facility] Start: 04-07-2022 ADVANCE DIRECTIVE DISCUSSION ADVANCE DIRECTIVE DISCUSSION [facility] Start: 04-07-2022 DEPRESSION ASSESSMENT DEPRESSION ASS ESSMENT [facility] Start: 03-18-2022 Hemoglobin A1c/Hemoglobin.total in Blood HBA1C [facility] Start: 03-18-2022 End: 05-18-2022 Thyrotropin [Units/volume] in Serum or Plasma TSH BLD Lab Routine Hypothyroidism, unspecified type Expected: 03/18/2022, Expires: 05/18/2022 [facility] Work Phone: Comment on above: Expected: 03/18/2022 , Expires: 05/18/2022 Start: 01-30-2022 End: 04-01-2022 Thyrotropin [Units/volume] in Serum or Plasma TSH BLD Lab Routine Hypothyroidism, unspecified type Expected: 01/30/2022, Expires: 04/01/2022 [facility] Work Phone: Comment on above: Expected: 01/30/2022 , Expires: 04/01/2022 Start: 12-18-2021 End: 02-17-2022 T4/FTI/T4U [facility] Work Phone: Comment on above: Expected: 12/18/2021 , Expires: 02/17/2022 Start: 12-18-2021 End: 02-17-2022 Thyrotropin [Units/volume] in Serum or Plasma [facility] Work Phone: Comment on above: Expected: 12/18/2021 , Expires: 02/17/2022 Start: 12-06-2021 Influenza vaccination INFLUENZA (#1) [facility] Start: 11-08-2021 3 comp foot exam completed DIABETIC FOOT EXAM [facility] Start: 07-31-2021 Hemoglobin A1c/Hemoglobin.total in Blood HBA1C [facility] Start: 04-07-2021 ADVANCE DIRECTIVE DISCUSSION ADVANCE DIRECTIVE DISCUSSION [facility] Start: 04-07-2021 DEPRESSION ASSESSMENT DEPRESSION ASS ESSMENT [facility] Start: 10-30-2019 Adult depression screening assessment DEPRESSION SCREENING [facility] Start: 2017 RSV Vaccine (1 - 1-d ose 75+ series) RSV Vaccine (1 - 1-dose 75+ series) [facility] Start: 01-17-2012 SHINGRIX VACCINE (2 of 3) VALENZUELA GRIX VACCINE (2 of 3) [facility] Start: 12-31-2008 Urine microalbumin profile [facility] Start: 2002 RSV Vaccine (1 - 1-d ose 60+ series) RSV Vaccine (1 - 1-dose 60+ series) [facility] Start: 1960 BP CONTROLLED (<130/80) BP CONTROLLE D (<130/80) [facility] Start: 1952 Glaucoma screening Dilated Retinal E xam [facility] Start: 1952 Hepatitis C antibody , confirmatory test DILATED RETINAL EXAM [facility] Start: 05-21-1943 COVID-19 VACCINE (#1) COVID-19 VACCI NE (#1) [facility] Bacteria identified in Blood by Culture Blood Culture [facility] Bacteria identified in Blood by Culture Blood Culture [facility] Bacteria identified in Urine by Culture Urine Culture [facility] Basic metabolic 2000 panel - Serum or Plasma BASIC METABOLIC PNL Lab Routine Essential hypertension, benign Chronic renal insufficiency, stage 3 (moderate) (HCC) 12/23/2022 2:01 PM EDT [facility] Work Phone: Cobalamin (Vitamin B 12) [Mass/volume] in Serum or Plasma VITAMIN B12 BLOOD Lab Routine Vitamin D deficiency 12/23/2022 2:01 PM EDT [facility] Work Phone: Hemoglobin.gisele manleylower [Presence] in Stool by Immunoassay IMMUNOCHEMICAL FECAL OCCULT BLOOD TEST Lab Routine Anemia, unspecified type Ordered: 08/09/2024 [facility] Work Phone: Comment on above: Ordered: 08/09/2024 Lactic acid measurement [facility] Patient referral [facility] Work Phone: [facility] Immunizations Immunization Date Immunization Notes Care Provider Ashley marshall 04-28-2018 influenza virus vacc ine, unspecified formulation Kb Lackey MD Work Phone: [facility] 01-25-2016 influenza, high dose seasonal, preservative-free Maribell Titus RN Work Phone: [facility] Work Phone: 10-21-2014 pneumococcal conjuga te vaccine, 13 valent Maribell Titus RN Work Phone: [facility] 12-20-2013 influenza, high dose seasonal, preservative-free Maribell Titus RN Work Phone: [facility] 11-22-2011 zoster vaccine, live Maribell Titus RN Work Phone: [facility] Work Phone: 02-15-2011 influenza virus vacc ine, unspecified formulation Maribell Titus RN Work Phone: [facility] Work Phone: 01-23-2010 influenza virus vacc ine, unspecified formulation Maribell Titus RN Work Phone: [facility] Work Phone: 12-30-2008 influenza virus vacc ine, unspecified formulation Maribell Titus RN Work Phone: [facility] Work Phone: 12-30-2008 pneumococcal polysaccharide vaccine, 23 valent Maribell Titus RN Work Phone: [facility] Work Phone: 12-30-2008 tetanus and diphther ia toxoids, adsorbed, preservative free, for adult use (2 Lf of tetanus toxoid and 2 Lf of diphtheria toxoid) Maribell Titus RN Work Phone: [facility] Work Phone: Payers Date Payer Category Payer Self-pay [id number] 2020 Medicare (Managed Care) [employer] [id number] 2020 Medicare [id number] 2017 Medicare [id number] 2007 Unknown [id number] 2006 Unknown [facility] COMP [id number] 2006-Present [phone] [place] [address] [facility] [id number] Medicare MEDICARE PART A B [id number] Unknown [id number] Unknown [id number] Unknown [id number] Unknown [id number] Unknown [id number] Unknown [id number] Unknown [id number] Unknown [id number] Unknown [id number] Social History Date Type Detail Facility Start: 01-11-2011 End: 01-28-2024 Tobacco smoking status WAIS Ex-smoker [facility] Work Phone: Start: 10-12-1955 End: 10-11-1980 History of tobacco use Current smoker [facility] Work Phone: Start: 10-12-1955 End: 10-11-1980 History of tobacco use Cigarette Smoker [facility] Work Phone: Start: 01-11-2011 End: 12-23-2022 Cigarettes smoked current (pack per day) - Reported 1 [facility] Work Phone: Start: 01-11-2011 End: 01-28-2024 Tobacco use and exposure Smokeless tobacco non-user [facility] Work Phone: Start: 11-21-2021 End: 11-04-2024 Alcohol intake Current non-drinker of alcohol (finding) [facility] Start: 1940 Sex Assigned At Not on file [facility] Start: 12-08-2021 End: 12-18-2021 Exposure to SARS-CoV-2 (event) Not sure [facility] Start: 06-05-2022 End: 06-05-2022 Tobacco smoking status NHIS Unknown if ever smoked [facility] Start: 06-25-2020 Cigarettes [facility] Start: 1940 Sex Assigned At Male [facility] Start: 08-23-2022 History SDOH Food Worry 1 [facility] Start: 08-23-2022 History SDOH Transpo rt Med 2 [facility] Start: 06-17-2022 End: 12-23-2022 Tobacco use panel [facility] Work Phone: Start: 03-08-2012 Adult Depression Screening Assessment 0 [facility] Work Phone: (I/We) worried wheth er (my/our) food would run out before (I/we) got money to buy more. Never true [facility] Work Phone: Medical Equipment Procedure Code Equipment Code Equipment Original Text Equipment Identifier Dates [id number], [id number] Start: 12-01-2020 End: 02-07-2022 Comment on above: [...] Assessment Result Facility 07-28-2024 Functional status Chair [facility] Work Phone: 06-07-2022 Functional status Ambulates [facility] Work Phone: 11-02-2014 Are you deaf, or do you have serious difficulty hearing No 11/02/2014 9:50 AM Salma Colon LPN No [facility] 11-02-2014 Are you blind, or do you have serious difficulty seeing, even when wearing glasses No 11/02/2014 9:50 AM Salma Colon LPN No [facility] 11-02-2014 Do you have serious difficulty walking or climbing stairs No 11/02/2014 9:50 AM Salma Colon LPN No [facility] 11-02-2014 Do you have difficul ty dressing or bathing No 11/02/2014 9:50 AM Salma Colon LPN No [facility] 11-02-2014 Because of a physica l, mental, or emotional condition, do you have difficulty doing errands alone such as visiting a physician's office or shopping No 11/02/2014 9:50 AM EDT Salma Marquis LPN No [facility] Mental Status Date Assessment Result Facility 07-28-2024 Cognitive function Voice/Name [facility] Work Phone: 06-07-2022 Cognitive function Voice/Name [facility] Work Phone: 06-05-2022 Cognitive function Level Of Cons ciousness Awake;Alert [facility] Work Phone: 11-02-2014 Because of a physica l, mental, or emotional condition, do you have serious difficulty concentrating, remembering, or making decisions No 11/02/2014 9:50 AM EDT Salma Marquis LPN [facility] Clinical Notes 07-07-2015 to 02-10-2025 Telephone Encounter - Morgan Dotson [facility] 12/03/2024 12:46 PM EDTTelephone Encounter - Morgan Dotson [facility] 12/03/2024 12:46 PM EDTMorgan Dotson [facility] 12/03/2024 12:43 PM EDT Note Date & Type Note Facility 02-10-2025 Note HNO ID: [id number] Author: KB LACKEY MD Service: ? Author Type: Physician Type: Progress Notes Filed: 02/10/2025 16:33 Note Text: They are already obtained regularly per endo at [facility] 02-10-2025 Note HNO ID: [id number] Author: BONIFACIO VEGA, ? Service: ? 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 with KB LACKEY - Physical Patient will walk in for labs Navigation Signature: Bonifacio Vega February 10, 2025 2:11 PM [facility] 02-10-2025 Note Patient Outreach (NE TNAV) JEAN-CLAUDE DOUGLAS ([id number]) 1940 M Date Time Provider Department 02/10/25 [...] Patient scheduled/pended orders: HBA1C KED 03/19/2025 in [facility] with KB LACKEY - Physical Patient will walk in for labs Navigation Signature: Bonifacio Vega February 10, 2025 2:11 PM Kb Lackey MD 02/10/2025 4:33 PM Signed They are already obtained regularly per endo at [facility] Allergies As of Date: 02/10/2025 (No Known [...] tablet Take 325 mg by mouth. - mv,iron,wdh-[id number] cmb.24 400 mcg tab Take 1 tablet [...] Encounter Status:Closed by KB LACKEY on 02/10/25 [facility] 12-03-2024 Telephone encount er Note Patient reviewed for Population Health Medication Adherence Pended the following prescription(s) for review. Requested Prescriptions Pending Prescriptions Disp Refills lisinopril (ZESTRIL) 30 mg tablet 90 tablet 3 Sig: Take 1 tablet by mouth once daily. Future Appointments Date Time Provider Department Center 03/19/2025 11:20 AM [facility] if appropriate. Thank you. Morgan Dotson CPhT December 03, 2024 12:46 PM [facility] 12-03-2024 Miscellaneous Notes Formattin g of this note is different from the original. Patient reviewed for Population Health Medication Adherence Pended the following prescription(s) for review. Requested Prescriptions Pending Prescriptions Disp Refills lisinopril (ZESTRIL) 30 mg tablet 90 tablet 3 Sig: Take 1 tablet by mouth once daily. Future Appointments Date Time Provider Department Center 03/19/2025 11:20 AM Kb Lackey MD [facility] Please review and refill if appropriate. Thank you. Morgan Dotson CPhT December 03, 2024 12:46 PM documented in this encounter [facility] 12-03-2024 Note HNO ID: [id number] Author: MORGAN DOTSON CPhT Service: ? Author Type: Sanitation Associate Type: Progress Notes Filed: 12/03/2024 12:45 Note Text: Patient is identified through a medication adherence outreach initiative based on pharmacy claims data from: [employer] Medication Adherence Category: Hypertension First Review Attribution [...] Dotson CPhT Value Based Care Pharmacy Team [facility] 12-03-2024 History of Presen t illness Narrative Patient is identified through a medication adherence outreach initiative based on pharmacy claims data from: [employer] Medication Adherence Category: Hypertension First Review Attribution [...] refill request to provider Morgan Dotson CPhT [facility] Based Care Pharmacy Team documented in this encounter [facility] 12-03-2024 Note [facility] JEAN-CLAUDE DOUGLAS ([id number]) 1940 M Date Time Provider Department 12/03/24 KB LACKEY During your visit today, we recorded the following information about you: Morgan Dotson CPhT 12/03/2024 12:45 PM Signed Patient is identified through a medication adherence outreach initiative based on pharmacy claims data from: [employer] Medication Adherence Category: Hypertension First Review Attribution [...] refill request to provider Morgan Dotson CPhT [facility] Pharmacy Team Allergies As of Date: [...] two times a day with meals. Per [facility] 24 units every morning and 10 units qhs - ferrous sulfate 325 mg (65 mg iron) tablet Take 325 mg by mouth. - mv,iron,jdl-QF-fyojwoc cmb.24 400 mcg tab Take 1 tablet [...] Encounter Status:Closed by MORGAN DOTSON on 12/03/24 [facility] 11-22-2024 Progress note [facility] 11-22-2024 Progress note Note Date/Time November 22, 2024 1:48pm [facility] [facility] [place] [address] OFFICE VISIT Date of Service: 11/22/24 MR#: [id number] Acct: [id number] Name: JEAN-CLAUDE DOUGLAS Rep #: [id number] : 1940 Provider: Dr. Salvador Kemp MD Age/Sex: 84/M [place] [facility] [place]: Signed Intake Vital Signs 08/03/24 13:27 [...] Diabetes mellitus type: type 2 Diabetes mellitus vermin exterminator insulin use:with vermin exterminator use Diabetes mellitus complication status: with neurologic complications Diabetes mellitus complication detail: with polyneuropathy Qualified Code(s): E11.42 - Type 2 diabetes mellitus with diabetic polyneuropathy; Z79.4 - prison (current) use of insulin Plan: Improved, but [...] diabetes mellitus with diabetic polyneuropathy, Z79.4 - vermin exterminator (current) use of insulin Coding Level of Care Code Off vis,est,level 4 Extra Time Spent Extra Time Spent Extra Time Spent: G2211 Diagnoses Type 2 diabetes mellitus with diabetic polyneuropathy, with long-term current use of insulin E11.42; Z79.4 Diabetes mellitus type: type 2 Diabetes mellitus care home insulin use: with vermin exterminator use Diabetes mellitus complication status: with neurologic [...] - Extra Time Spent: G2211 (G2211) 11/22/24 [id number] <Electronically signed by Salvador Kemp MD> Date _ Salvador Kemp MD Cosigner Signature: Date (if applicable) CC: Dr. Kb Lackey MD ~ [facility] Work Phone: 1(268) 512-278608-16-2025 Telephone encounter Note* Telephone Encounter - [place] Alba Hightower - 11/20/2024 11:06 AM EDT [...] Take on empty stomach. [facility] November 20, 2024 11:06 AM [facility]08-16-2025 Miscellaneous Notes* Telephone Encounter - [place] Alba Hightower - 11/20/2024 11:06 AM EDT [...] Take on empty stomach. [facility] Thyroid [facility] November 20, 2024 11:06 AM documented in this encounterCincinnati [facility] Center06-13-2025 Telephone encounter Note * Telephone Encounter - Betsey Watters RN - 09/17/2024 2:25 PM EDT returned call and given provider's message below with verbalized understanding. [facility]06-13-2025 Miscellaneous Notes* Telephone Encounter - Betsey Watters [...] know labs are stable. documented in this encounterCincinnati [facility] Center06-13-2025 Telephone encounter Note * Telephone Encounter - Shirlene Zambrano MA - 09/17/2024 10:29 AM EDT Left message for patient to return call. Shirlene Zambrano Ma [facility]06-13-2025 Telephone encounter Note* Telephone Encounter - Shirlene Zambrano MA - 09/17/2024 10:28 AM EDT ----- Message from Kb Lackey MD sent at 09/16/2024 9:49 AM EDT ----- Let him know labs are stable. [facility]06-11-2025 NoteHNO ID: [id number] Author: KB LACKEY MD Service: ? Author [...] fingerstick machine. - Follow-up with Dr. Kemp, surveyor geodetic, on 11/22. MEDICATIONS: Current Outpatient Medications Medication [...] iron) tablet Take 325 mg by mouth. mv,iron,jui-UH-tvsblpi cmb.24 400 mcg tab Take 1 tablet [...] Wt Readings: Date: Wt (more content not included)...[facility]06-11-2025 History of Present illness Narrative* Kb Lackey [...] fingerstick machine. - Follow-up with Dr. Kemp, surveyor geodetic, on 11/22. MEDICATIONS: Current Outpatient Medications Medication [...] iron) tablet Take 325 mg by mouth. mv,iron,ngu-TW-xphxkpw cmb.24 400 mcg tab Take 1 tablet [...] to patient) Kb Lackey MD Recording using [employer] software for draft documentation of the visit was discussed with the patient/authorized workforce services representative; all questions welcomed and answered. Patient/authorized workforce services representative agreed to proceed documented in this encounterCincinnati [facility] Center06-11-2025 Instructions* Patient Instructions* Kb Lackey MD - 09/15/2024 2:42 PM EDT - Continue taking your kjhn-rhx-xmufbnw iron supplement as directed. - Complete the blood tests ordered today (CBC, iron level, and ferritin). - Schedule and attend a urology appointment at the [facility] to evaluate the blood in your urine. - Schedule and attend gastroenterology appointments at the [facility] for an EGD and colonoscopy to [...] your Medicare wellness exam. documented in this encounterCincinnati [facility] Medical Center06-11-2025 Evaluation note* Diagnosis Anemia, unspecified type- Primary Microscopic hematuria Type 2 diabetes mellitus with stage 3a chronic kidney disease, without long-term current use of insulin (HCC) Essential hypertension, benign Vitamin B12 deficiency Other B-complex deficiencies Hypothyroidism, acquired Unspecified hypothyroidism documented in this encounter [facility]05-15-2025 History of Present illness Narrative* Chacho Varela [...] Hector. Chacho Varela RPh documented in this encounterCincinnati Va Medical Center05-15-2025 NoteHNO ID: [id number] Author: CHACHO VARELA RPh Service: ? Author [...] closely with Bernarda. Michael Mata. Chacho Varela [facility] NotePatient Outreach ([facility]) JEAN-CLAUDE DOUGLAS ([id number]) 1940 M Date Time Provider Department 08/19/24 NICHOLE CHACHO EDUARDO During your visit today, we recorded the following information about you: NicholeBritney martínezily [facility] 08/19/2024 11:39 AM Signed Primary Care Pharmacy Panel Management This patient has been identified through Specialty Integration/Value-Based Operations Diabetes Registry Review by the primary care pharmacy team. After review, determined that the patient is not a candidate for pharmacy referral at this time due to follows closely with Bernarda. SeeMichael Hector. Chachomariya Varela [facility] Allergies As of Date: 08/19/2024 (No Known [...] two times a day with meals. Per [facility] 24 units every morning and 10 units qhs - ferrous sulfate 325 mg (65 mg iron) tablet Take 325 mg by mouth. - mv,iron,uef-FB-utqkcxq cmb.24 400 mcg tab Take 1 tablet [...] 12/23/2022 Encounter Status:Closed by CHACHO VARELA on 08/19/24[facility] 08-09-2024 Telephone encounter Note* Telephone Encounter - Salomon Ashby LPN - 08/09/2024 12:14 PM EDT Notified Scarlet. [facility]05-05-2025 Miscellaneous Notes* Telephone Encounter - Salomon Ashby [...] labs in one month. documented in this encounterCincinnati [facility] Center05-05-2025 Telephone encounter Note * Telephone Encounter - Kb Lackey MD - 08/09/2024 11:51 AM EDT Ok. I called in a cream to use topically as well. [facility]05-05-2025 Telephone encounter Note* Telephone Encounter - Salomon [...] consider. Will recheck lab in 1 month. [facility]05-05-2025 Telephone encounter Note* Telephone Encounter - Kb [...] ifobt. 5 recheck labs in one month. [facility]04-29-2025 NoteHNO ID: [id number] Author: KB LACKEY MD Service: ? Author Type: Physician Type: Progress Notes Filed: 08/03/2024 10:24 Note Text: Patient presents with: Hospital F/U HPI: Patient presents today for office visit for HOSPITAL/ER FOLLOW UP: Reason for visit: low blood sugar levels and increased confusion. Which facility: [facility] Date of visit: 07/26/24-07/28/24 Diagnosis: Acute Cystitis [...] two times a day with meals. Per [facility] 24 units every morning and 10 units qhs ferrous sulfate 325 mg (65 mg iron) tablet Take 325 mg by mouth. mv,iron,aib-NU-kimmela cmb.24 400 mcg tab Take 1 tablet [...] non-tender. Bowel sounds normal. (more content not included)...[facility]04-29-2025 History of Present illness Narrative* Kb Lackey MD - 08/03/2024 10:00 AM EDT Patient presents with: Hospital F/U HPI: Patient presents today for office visit for HOSPITAL/ER FOLLOW UP: Reason for visit: low blood sugar levels and increased confusion. Which facility: [facility] Date of visit: 07/26/24-07/28/24 Diagnosis: Acute Cystitis [...] iron) tablet Take 325 mg by mouth. mv,iron,qff-HN-ibeaocg cmb.24 400 mcg tab Take 1 tablet [...] six weeks or prn documented in this encounterCincinnati [facility] Medical Center04-29-2025 Evaluation note* Diagnosis Urinary tract infection with hematuria, site unspecified- Primary Type 2 diabetes mellitus with stage 3a chronic kidney disease, without long-term current use of insulin (HCC) Hypothyroidism, unspecified type Vitamin B12 deficiency Other B-complex deficiencies Iron deficiency anemia, unspecified iron deficiency anemia type Renal insufficiency Unspecified disorder of kidney and ureter Hypoglycemia Hypoglycemia, unspecified Anemia, unspecified type documented in this encounter [facility]04-23-2025 [facility] Medical Records Department [address] [place] [address] Discharge Summary 07/28/24 1406 MR#: [id number] Acct: [id number] Name: JEAN-CLAUDE DOUGLAS Rep #: [id number] : 1940 83 From: Dennys Buenrostro DO PCP: Dr. Kb Lackey MD Status:DIS IN [facility] Prov[facility] Date of Admission: 07/26/24 Date of Discharge: 07/28/24 Primary Care Physician: Dr. bK Lackey MD Reason For Visit: UTI, CHANTALE, [...] was seen in the emergency room at [facility] due to low blood sugar levels [...] Urine Cocaine Screen NEGATIVE, (more content not included)...[facility]04-21-2025 Evaluation note* Diagnosis Onset Date Resolution [...] Hypothyroidism (acquired) chronic November 22, 2024 1:22pm [place] [employer] Work Phone: 1(775) 120-846504-04-2025 NoteHNO ID: [id number] Author: ?, ?, ? Service: ? Author [...] taken: Patient scheduled/pended orders: KERay 08/02/2024 in [facility] with KB LACKEY - 6 month follow up, HCC; awv, ked,diabeti eye exam Updated appointment note HCC related Navigation Signature: Amna Hightower July 09, 2024 11:12 [facility]04-04-2025 History of Present illness Narrative* Amna Zaldivar [...] taken: Patient scheduled/pended orders: CHINO 08/02/2024 in [facility] with KB LACKEY - 6 month follow up, HCC; fanny, chino,diabeti eye exam Updated appointment note HCC related Navigation Signature: Amna Hightower July 09, 2024 11:12 AM documented in this encounterCincinnati [facility] Center04-04-2025 NoteHNO ID: [id number] Author: ?, ?, ? Service: ? Author Type: ? Type: Progress Notes Filed: 07/09/2024 11:16 Note Text: Dr. Lackey, Please approve these orders for the patient to be completed prior to their appointment. Additionally, feel free to place any other orders you deem necessary. Thank you! Pended Orders ID Status Description Pended By When Reason [id number] Pended BASIC METABOLIC PANEL Amna Zaldivar 07/09/24 1111 [id number] Pended ALBUMIN/CREATININE RATIO, URINE Ariadne Hightower, Amna 07/09/24 1111[facility]04-04-2025 History of Present illness Narrative* Amna Zaldivar - 07/09/2024 11:[address] Lackey, Please approve these orders for the patient to be completed prior to their appointment. Additionally, feel free to place any other orders you deem necessary. Thank you! Pended Orders ID Status Description Pended By When Reason [id number] Pended BASIC METABOLIC PANEL Amna Zaldivar 07/09/24 1111 [id number] Pended ALBUMIN/CREATININE RATIO, URINE Ariadne Hightower, Amna 07/09/24 1111 documented in this encounterCincinnati [facility] Center04-04-2025 Evaluation note* Diagnosis Type 2 diabetes mellitus with stage 3a chronic kidney disease, without long-term current use of insulin (HCC)- Primary documented in this encounter [facility]04-04-2025 NotePatient Outreach (NETNAV) JEAN-CLAUDE DOUGLAS ([id number]) 1940 M Date Time Provider Department 07/09/24 [...] ID Status Description Pended By When Reason [id number] Pended BASIC METABOLIC PANEL Amna Zaldivar 07/09/24 1111 [id number] Pended ALBUMIN/CREATININE RATIO, URINE Amna Zaldivar 07/09/24 1111 Allergies As of Date: 07/09/2024 (No Known Allergies) Date Reviewed: 01/28/2024 Reviewed by: Mone Arroyo LPN - Fully Assessed Primary Visit Diagnosis:Type 2 diabetes mellitus with stage 3a chronic kidney disease, without long-term current use of insulin (HCC) [E11.22, N18.31] Order(s):BASIC METABOLIC PANEL [SQBMP] Order #: [id number] FUTURE ALBUMIN/CREATININE RATIO, URINE [SQUACR] Order #: [id number] FUTURE Prescriptions as of 07/09/2024 - cyanocobalamin [...] with meals. Updated per endo note - mv,iron,ayt-QA-agnyify cmb.24 400 mcg tab Take 1 tablet [...] 12/23/2022 Encounter Status:Closed by KB LACKEY on 07/09/24[facility] 07-09-2024 NotePatient Outreach (NETNAV) JEAN-CLAUDE DOUGLAS ([id number]) 1940 Date Time Provider Department 07/09/24 KB [...] taken: Patient scheduled/pended orders: KERay 08/02/2024 in [facility] with KB LACKEY - 6 month [...] with meals. Updated per endo note - mv,iron,vrn-YG-klcrbpf cmb.24 400 mcg tab Take 1 tablet [...] 12/23/2022 Encounter Status:Closed by AMNA ZALDIVAR on 07/09/24[facility]02-22-2025 Telephone encounter Note* Telephone Encounter - Kianna [...] Kianna Hightower May 29, 2024 8:09 AM [facility]02-22-2025 Miscellaneous Notes* Telephone Encounter - Kianna Burns [...] 29, 2024 8:09 AM documented in this encounterCincinnati [facility] Center11-29-2024 NoteHNO ID: [id number] Author: KIANNA BARNETT RN Service: ? Author [...] pounds in a week? No Based on assessment nurse, the following disposition is advised: No symptoms or symptoms present, not severe. Routed to: No Action Needed DONTA Education Provided this Outreach: No Kianna Barnett RN March 05, 2024 12:25 [facility]11-29-2024 History of Present illness Narrative* Kianna Barnett [...] pounds in a week? No Based on assessment nurse, the following disposition is advised: No symptoms or symptoms present, not severe. Routed to: No Action Needed DONTA Education Provided this Outreach: No Kianna Barnett RN March 05, 2024 12:25 PM documented in this encounterCincinnati [facility] Center11-29-2024 NotePatient Outreach (AMBCMG) JEAN-CLAUDE DOUGLAS ([id number]) 1940 M Date Time Provider Department 03/05/24 [...] pounds in a week? No Based on assessment nurse, the following disposition is advised: No symptoms [...] with meals. Updated per endo note - mv,iron,vzu-IA-ahjxexj cmb.24 400 mcg tab Take 1 tablet [...] 12/23/2022 Encounter Status:Closed by KIANNA BARNETT on 03/05/24[facility]10-31-2024 History of Present illness Narrative* Kianna Barnett [...] pounds in a week? No Based on assessment nurse, the following disposition is advised: No symptoms or symptoms present, not severe. Routed to: No Action Needed DONTA Education Provided this Outreach: No Kianna Barnett RN February 05, 2024 1:40 PM documented in this encounterCinc[facility] Center10-24-2024 Telephone encounter Note * Telephone Encounter - Salomon Ashby LPN - 01/29/2024 11:36 AM EDT Patient notified. [facility]10-24-2024 Miscellaneous Notes* Telephone Encounter - Salomon Ashby LPN - 01/29/2024 11:36 AM EDT Patient notified. * Telephone Encounter - Kb Lackey MD - 01/29/2024 8:26 AM EDT Slight anemic. Kidney function slightly worse. Push fluids. Recheck labs in two weeks documented in this encounterCincinnati [facility] Center10-24-2024 Telephone encounter Note * Telephone Encounter - Kb Lackey MD - 01/29/2024 8:26 AM EDT Slight anemic. Kidney function slightly worse. Push fluids. Recheck labs in two weeks [facility]10-23-2024 Note* Addendum Note - Kb Lackey MD - 01/28/2024 9:58 AM EDTAddended by: KB LACKEY on: 01/28/2024 09:58 AM Modules accepted: Orders [facility]10-23-2024 Miscellaneous Notes* Addendum Note - Kb Lackey MD - 01/28/2024 9:58 AM EDTAddended by: KB LACKEY on: 01/28/2024 09:58 AM Modules accepted: Orders documented in this encounterCincinnati [facility] Center10-23-2024 History of Present illness Narrative* Kb Lackey [...] daily with meals. Updated per endo note mv,iron,bjl-OC-biryshd cmb.24 400 mcg tab Take 1 tablet [...] d Kb Lackey MD documented in this encounterCincinnati [facility] Center10-03-2024 History of Present illness Narrative* Kianna Barnett, RN - 01/08/2024 11:55 AM EDT CDM Telephonic Outreach Provider Action/FYI Outreach Summary: No CDM concerns . Spoke with spouse Scarlet. [facility] Contacted for: Routine Telephonic Outreach Contact [...] pounds in a week? No Based on assessment nurse, the following disposition is advised: No symptoms or symptoms present, not severe. Routed to: No Action Needed DONTA Education Provided this Outreach: No Kianna Barnett RN January 08, 2024 12:07 PM documented in this encounterCinc[facility] Center09-11-2024 Telephone encounter Note * Telephone Encounter - [...] Please advise. Thank you. Keli Oliva LPN. [facility]09-11-2024 Miscellaneous Notes* Telephone Encounter - Keli Oliva [...] you. Keli Oliva LPN. documented in this encounterCincinnati [facility] Medical Center09-05-2024 History of Present illness Narrative* Kianna Barnett [...] spouse; feels safe + food Based on assessment nurse, the following disposition is advised: No symptoms or symptoms present, not severe. Routed to: No Action Needed DONTA Education Provided this Outreach: No Kianna Barnett RN December 11, 2023 12:04 PM Care Coordination next call- CKD HTN DM Patient [place] Last CDM outreach contact: 12/11/23 No CDM concerns; spoke with spouse Scarlet. Baseline: 12/11/23 ADL, FALL, GOAL due: 11/12/24 . Chronic disease goal - 11/13/23- completed all goals SDOH : 12/11/23 documented in this encounterCinc[facility] Center08-23-2024 Miscellaneous Notes* Telephone Encounter - Tiesha Recio [...] Take on empty stomach. For Thyroid Tiesha Reico LPN November 28, 2023 8:48 AM documented in this encounterCincinnati [facility] Center08-23-2024 Telephone encounter Note * Telephone Encounter - [...] Recio LPN November 28, 2023 8:48 AM [facility]08-08-2024 History of Present illness Narrative* Kianna Barnett, [...] pounds in a week? No Based on assessment nurse, the following disposition is advised: No symptoms or symptoms present, not severe. Routed to: No Action Needed DONTA Education Provided this Outreach: No Kianna Barnett RN November 13, 2023 10:22 AM Care Coordination next call- CKD HTN DM Patient [place] Last CDM outreach contact: No CDM concerns; spoke with spouse Scarlet. Baseline: 06/02/23 ADL, FALL, GOAL due: 11/12/24 . Chronic disease goal - 11/13/23- completed all goals 09/20/22 -ckd . 05/01/23- reviewed zones/management with spouse 03/03/23- HTN -reviewed with pt. 08/21/23- DM- reviewed SDOH : 08/23/22 documented in this encounterCinc[facility]06-13-2024 History of Present illness Narrative* Kianna Barnett RN - 09/18/2023 9:59 AM EDT [...] daily weight at home? No Based on assessment nurse, the following disposition is advised: No symptoms or symptoms present, not severe. Routed to: No Action Needed DONTA Education Provided this Outreach: No Kianna Barnett RN September 18, 2023 10:15 AM Care Coordination next call- CKD HTN DM Patient [place] Last CDM outreach contact: 08/21/23- No CDM [...] Next PCP visit: 06/02/23 documented in this encounterCinc[facility] Center05-28-2024 Telephone encounter Note * Telephone Encounter - Amena Pizano LPN - 09/02/2023 1:44 PM EDT Pt's calls to report that pt cannot get into infectious disease in [place] until 11/11/23 and theydo not want to wait that long. reports there is a Dr. Abhilash Kearns from [facility] that comes to [facility] once a week. calledthe office and was advised they could get the pt in sooner. Faxed ABDULAZIZ maurer notes, labs to [phone]. Amena Pizano LPN [facility]05-28-2024 Miscellaneous Notes* Telephone Encounter - Amena Pizano LPN - 09/02/2023 1:44 PM EDT Pt's calls to report that pt cannot get into infectious disease in [place] until 11/11/23 and theydo not want to wait that long. reports there is a Dr. Abhilash Kearns from [facility] that comes to [facility] once a week. calledthe office and was advised they could get the pt in sooner. Faxed ABDULAZIZ maurer notes, labs to [phone]. Amena Pizano LPN documented in this encounterCincinnati [facility] Center05-21-2024 Telephone encounter Note * Telephone Encounter - Jeni Marquis LPN - 08/26/2023 4:50 PM EDT Spoke with . Faxing consult to [facility]05-21-2024 Miscellaneous Notes* Telephone Encounter - Jeni Marquis LPN - 08/26/2023 4:50 PM EDT Spoke with . Faxing consult to [facility] * Telephone Encounter - Katya Suarez - 08/26/2023 4:37 PM EDT Sp[facility] to to [facility] ([place] to get something that soon because they all are scheduling out till Nov) But... wants to know if there is anyone in [place]? Please advise documented in this encounterCinc[facility] Center05-21-2024 Telephone encounter Note * Telephone Encounter - Katya Suarez - 08/26/2023 4:37 PM EDT Spoke to to schedule with Infectious Diseases Dr Didier Man @ [facility] on 09/01 next week (blake to get something that soon because they all are scheduling out till Nov) But... wants to know if there is anyone in [place]? Please advise [facility] Work Phone: 1(750) 680-990505-21-2024 Telephone encounter Note* Telephone Encounter - Rosey Kauffman RN - 08/26/2023 4:17 PM EDT Pts called and is notified of providers results and instructions. Pts asking what they need to do now. Transferred to scheduled to set up appt with Infectious Disease. Rosey Kauffman RN [facility]05-21-2024 Miscellaneous Notes* Telephone Encounter - Rosey Kauffman [...] may require IV antibiotics. documented in this encounterCincinnati [facility] Center05-20-2024 Telephone encounter Note * Telephone Encounter - Shirlene Zambrano MA - 08/25/2023 3:06 PM EDT notified of provider message Shirlene Zambrano MA August 25, 2023 3:07 PM [facility]05-20-2024 Telephone encounter Note* Telephone Encounter - Jeni Graham APRN.CNS - 08/25/2023 1:50 PM EDT Please let patient know that he has a urinary tract infection with Aerococcus urinae. I have placed a consult for infectious disease. This may require IV antibiotics. [facility]05-16-2024 History of Present illness Narrative* Kianna Barnett [...] daily weight at home? No Based on assessment nurse, the following disposition is advised: No symptoms or symptoms present, not severe. Routed to: No Action Needed DONTA Education Provided this Outreach: No Kianna Barnett RN August 21, 2023 11:14 AM Care Coordination next call- CKD HTN DM Patient [place] Last CDM outreach contact: 08/21/23- No CDM [...] Next PCP visit: 06/02/23 [facility] encounter Note * Telephone Encounter - Teresa Restrepo LPN - 07/29/2023 4:08 PM EDT Spoke with and message below given. Teresa Restrepo LPN [facility]04-[facility] Miscellaneous Notes* Telephone Encounter - Teresa Restrepo [...] urinary symptoms at all? documented in this encounterC[facility]04-[facility]24 Telephone encounter Note * Telephone Encounter - Betsey Watters RN - 07/29/2023 9:40 AM EDT Left vm for patient to return call to nurse for provider's message. [facility]04-22-[facility] Telephone encounter Note* Telephone Encounter - Kb Lackey MD - 07/28/2023 8:08 PM EDT Recheck urine in two weeks [facility]04-22-[facility] Telephone encounter Note* Telephone Encounter - Salomon Ashby LPN - 07/28/2023 6:33 PM EDT Patient notified and states that patient isn't having any issues. Advised her to call office if anything develops. [facility]04-22-[facility] Telephone encounter Note* Telephone Encounter - Kb Lackey MD - 07/28/2023 4:58 PM EDT Urine is showing protein. Also showing white cells but could be contaminated. Any urinary symptoms at all? [facility]04[facility] Telephone encounter Note* Telephone Encounter - Scarlet Worthy LPN - 07/28/2023 10:03 AM EDT Called and spoke to patient Scarlet, updated on results, Patient to come in today for UA. Scarlet Worthy LPN July 28, 2023 10:04 AM [facility]04-22-[facility] Miscellaneous Notes* Telephone Encounter - Scarlet Worthy [...] as well, still needed. documented in this encounterC[facility]04-[facility]-2024 Telephone encounter Note * Telephone Encounter - Kb Lackey MD - 07/28/2023 8:04 AM EDT His kidney function is back to baseline. He was to do a ua as well, still needed. [facility]04-20-[facility] History of Present illness Narrative* Kb Lackey [...] daily with meals. Updated per endo note mv,iron,fpc-YZ-rqwcuwj cmb.24 400 mcg tab Take 1 tablet [...] DIFFERENTIAL Kb Lackey MD documented in this encounterCinc[facility]04-18-2024 History of Present illness Narrative* Kianna Barnett RN - 07/24/2023 12:15 PM EDT [facility] Telephonic Outreach Provider Action/FYI Contacted for: [...] daily weight at home? No Based on assessment nurse, the following disposition is advised: No symptoms or symptoms present, not severe. Routed to: No Action Needed DONTA Education Provided this Outreach: No Kianna Barnett RN July 24, 2023 12:18 PM Care Coordination next call- CKD HTN DM Last CDM outreach contact: 06/26/23- No concerns; spoke with spouse Scarlet. Patient [place] Baseline: 06/02/23 ADL, FALL, GOAL due: 09/21/23 . Chronic disease goal - 09/20/22 -ckd . 05/01/23- reviewed zones/management with spouse 03/03/23- HTN -reviewed with pt. SDOH transportation and food insecurity completed: 08/23/22 Next PCP visit: 06/02/23 documented in this encounterC[facility]03-21-2024 History of Present illness Narrative* Kianna Barnett [...] pounds in a week? No Based on assessment nurse, the following disposition is advised: No symptoms or symptoms present, not severe. Routed to: No Action Needed DONTA Education Provided this Outreach: No Kianna Barnett RN June 26, 2023 3:37 PM Care Coordination next call- CKD HTN DM Last CDM outreach contact: 06/26/23- No concerns; spoke with spouse Csarlet. BS improved. Patient [place] Baseline: 06/02/23 ADL, FALL, GOAL due: 09/21/23 . Chronic disease goal - 09/20/22 -ckd . 05/01/23- reviewed zones/management with spouse 03/03/23- HTN -reviewed with pt. SDOH transportation and food insecurity completed: 08/23/22 Next PCP visit: 06/02/23 documented in this encounterC[facility]03-21-2024 Miscellaneous Notes* Telephone Encounter - Teresa Restrepo [...] you. Teresa Restrepo LPN. documented in this encounterCinc[facility]11-27-2023 History of Present illness Narrative* Kianna Barnett [...] daily weight at home? No Based on assessment nurse, the following disposition is advised: No symptoms [...] 09/20/22 -ckd . 03/03/23- HTN -Need review. [facility] transportation and food insecurity completed: 08/23/22 Next PCP visit: 06/24/22 documented in this encounterC[facility]10-23-2023 History of Present illness Narrative* Karishma Szymanski [employer] COUN[employer] - 01/27/2023 10:01 AM EDT Jean-Claude Lackey [...] Take 1 tablet by mouth once daily. mv,iron,uan-CL-cxhhiey cmb.24 400 mcg tab Take 1 tablet [...] Yes Karishma Szymanski LPN documented in this encounterCincinnati [facility]10-06-2023 History of Present illness Narrative* Kianna Barnett [...] daily weight at home? No Based on assessment nurse, the following disposition is advised: No symptoms [...] Next PCP visit: 06/24/22 documented in this encounterC[facility]09-19-2023 Miscellaneous Notes* Telephone Encounter - Yelena Gibson [...] know labs are stable. documented in this encounterCinc[facility]09-18-2023 History of Present illness Narrative* Kb Lackey [...] Take 1 tablet by mouth once daily. mv,iron,poh-KA-fmoofxh cmb.24 400 mcg tab Take 1 tablet [...] stable. Kb Lackey MD documented in this encounterCincinnati [facility] Center09-08-2023 Miscellaneous Notes* Telephone Encounter - Kianna Barnett RN - 12/13/2022 11:35 AM EDT Patient phones requesting refills as follows: Requested Prescriptions Pending Prescriptions Disp Refills levothyroxine (SYNTHROID) 125 mcg tablet 30 tablet 11 Sig: Take 1 tablet by mouth once daily. Take on empty stomach. For Thyroid Please review and advise. Kianna Barnett RN documented in this encounterCincinnati [facility] Center09-08-2023 History of Present illness Narrative* Kianna Barnett [...] daily weight at home? No Based on assessment nurse, the following disposition is advised: No symptoms or symptoms present, not severe. Routed to: No Action Needed DONTA Education Provided this Outreach: No Kianna Barnett RN December 13, 2022 11:38 AM documented in this encounterCinc[facility]08-11-2023 History of Present illness Narrative* Kianna Barnett RN - 11/15/2022 1:48 PM EDT [facility] Telephonic Outreach Provider Action/FYI Contacted for: [...] Barnett RN - 11/15/2022 10:43 AM EDT [facility] Telephonic Outreach Provider Action/FYI Contacted for: [...] food insecurity completed: 08/23/22 documented in this encounterC[facility]07-14-2023 History of Present illness Narrative* Kianna Barnett RN - 10/18/2022 1:05 PM EDT [facility] Telephonic Outreach Provider Action/FYI Contacted for: [...] like to speak with a social work sports team marketing intern to help give you support for any of these needs? No Lives with spouse; feels safe + food It can be normal to feel anxious or down during a time like this. Would you like to talk to a mental health professional about how you have been feeling? No Based on assessment nurse, the following disposition is advised: No symptoms [...] food insecurity completed: 08/23/22 documented in this encounterC[facility]05-01-2023 History of Present illness Narrative* Maribell Titus RN - 09/20/2022 4:28 PM EDT [facility] Telephonic Outreach Provider Lewis/DIVYA Has continuous glucose monitor (as recommended by outside [facility] hospital system ENDO Dr Kemp) and [...] daily weight at home? No Based on assessment nurse, the following disposition is advised: No symptoms or symptoms present, not severe. Routed to: No Action Needed DONTA Education Provided this Outreach: No Maribell Titus RN September 20, 2022 4:32 PM documented in this encounterC[facility]04-20-2023 History of Present illness Narrative* Maribell Titus RN - 07/25/2022 1:49 PM EDT [facility] Telephonic Outreach Provider Lewis/DIVYA Spoke with [...] daily weight at home? No Based on assessment nurse, the following disposition is advised: Symptoms present, not severe. Routed to: No Action Needed DONTA Education Provided this Outreach: No Maribell Titus RN July 25, 2022 1:55 PM documented in this encounterC[facility]03-29-2023 Miscellaneous Notes* Telephone Encounter - Fariha Gutierrez [...] repeat labs are ok. documented in this encounterCinc[facility]03-23-2023 History of Present illness Narrative* Maribell Titus RN - 06/27/2022 8:40 AM EDT [facility] TELEPHONIC OUTREACH Provider Action/FYI: Spoke with patient's Scarlet and validated involvement in this patient's care. She reports patient is gaining back his weight - went from 147 lb to 154 lbs. Is aware of upcoming lab work needed. Noconcerns or questions today. Since previous [facility] Telephonic Outreach: - 06/07/22 [facility] 06/17/22 Kb Lackey MD [facility] follow up visit Labs ordered - repeat [...] like to speak with a social work sports team marketing intern to help give you support for any [...] you up for automated weekly questionnaires through [employer] This is an easy way for us [...] my name is Maribell Titus RN your [employer] [facility]ship [facility] the [facility] I am calling today for your bi-weekly check in. I am sorry I missed your call. I will reach out to you again tomorrow. (if the third call I will reach out to you again next week) Enter next patient outreach date for the following using the Track Pt Outreach. End outreach. documented in this encounterCinc[facility]03-13-2023 History of Present illness Narrative* Kb Lackey MD - 06/17/2022 10:16 AM EDT Patient presents with: Hospital F/U HPI: Patient presents today for office visit for follow up. TCM call placed on 06/10/ HOSPITAL/ER FOLLOW UP: Reason for visit: malaise Which facility: [facility] Date of visit: 06/05/22-discharged 06/07 Diagnosis: Sepsis [...] Take 1 tablet by mouth once daily. mv,iron,azc-UJ-mlcmksd cmb.24 400 mcg tab Take 1 tablet [...] endo. Kb Lackey MD documented in this encounterCinc[facility]03-08-2023 Miscellaneous Notes* Telephone Encounter - Capri Mccauley [...] times. Scarlet has reached out to [facility] to advise on insulin orders. Capri Mccauley RN documented in this encounterCinc[facility]03-06-2023 History of Present illness Narrative* Salomonlina Hallmanantonio AYERS - 06/10/2022 3:39 PM EST TRANSITION CARE MANAGEMENT (TCM) INITIAL CONTACT [employer] Outreach Provider Action/FYI: Insulin was increased to [...] flowsheet data found. SUMMARY: -Pt discharged from [facility] on 06/07/22. -Admitted for: sepsis secondary to [...] for provider to review documented in this encounterC[facility]03-02-[address] Buenrostro [facility] June 06, 2022 6:41pm Note Date/Time June 06, 2022 6:06 pm [facility] Medical Records Department [address] [place] [address] Progress Note - Hospitalist 06/06/22 1804 MR#: [id number] Acct: [id number] Name: JEAN-CLAUDE DOUGLAS Baljeet Rep #:[id number] : 1940 81 From: Dennys Buenrostro DO PCP: Dr. Kb Lackey MD Status:ADM I N Location: [place] [address] Reason for Visit Reason for Visit: Diagnoses [...] (Auto) 93.5 H, Lymph % (Auto) 3.7L, [place] % (Auto) 1.8, Eos % (Auto) 0.2, [...] Clarity Cloudy, Urine pH 6.0, Ur Specific [place] 1.010, Urine Protein 30 H, Urine Glucose [...] 93.4 H, Lymph % (Auto) 1.8 L, [place] % (Auto) 3.6, Eos % (Auto) 0.0, [...] 19:22 EST Reading Location ID and State: [facility] / [place] , Service support , Physical Exam Const [...] 35 minutes Charges/Coding Visit Charges Inpatient E&M: 85880 Subs Hosp L2 06/06/22 1841 <Electronically signed by Dennys Buenrostro DO> Cosigner Signature (if applicable): CC: ~ Signed [facility] Work Phone: 1(254) 340-207103-02-2023 History of Present illness Narrative* Maribell Titus RN - 06/06/2022 3:13 PM EST [facility] CD[facility] TELEPHONIC OUTREACH Provider Action/FYI: Spoke with patient's Scarlet and validated involvement in this patient's care. Patient is currently in [facility] with UTI. Anticipated discharge in a couple of days Appointments for Next 60 Days Date Time Provider Location Dept Phone 06/17/2022 10:20 AM [facility] [phone] Contact made with patient: Yes Patient identified [...] like to speak with a social work sports team marketing intern to help give you support for any [...] you up for automated weekly questionnaires through [employer] This is an easy way for us [...] PtOutreach and End outreach. documented in this encounterCincinnati [facility] Center03-02-2023 History and physical note Author Dr. Davis [facility] June 06, 2022 5:56am Note Date/Time June 05, 2022 10:2 4pm [facility] Medical Records Department [address] [place] [address] H&P Exam - Hospitalist 06/05/224 MR#: [id number] Acct: [id number] Name: JEAN-CLAUDE DOUGLAS Rep #:[id number] : 1940 81 From: Mk Davis MD PCP: Dr. Kb Lackey MD Status:ADM I N Location: [place] [address]403- 1 HPI - General General Date of [...] his IV antibiotics patient had loose stools. [facility] Medical History Benign essential hypertension Cataract Diabetes [...] (Auto) 93.5 H, Lymph % (Auto) 3.7L, [place] % (Auto) 1.8, Eos % (Auto) 0.2, [...] Clarity Cloudy, Urine pH 6.0, Ur Specific [place] 1.010, Urine Protein 30 H, Urine Glucose [...] 19:22 EST Reading Location ID and State: [facility] / [place] , Service support , Assessment & Plan [...] Lovenox ordered. Charges/Coding Visit Charges Inpatient E&M: 88854 Init Hosp L3 06/06/22 0555 <Electronically signed [...] MD; Dr. Kb Lackey MD ~* Signed [facility] Work Phone: 1(765) 992-454103-02-[address] Garcia [facility] June 05, 2022 10:17pm Note Date/Time June 05, 2022 5:45 pm [facility] Medical Records Department [address] [place] [address] Emergency Department Summary 06/05/22 MR#: [id number] Acct: [id number] Name: JEAN-CLAUDE DOUGLAS Rep #:[id number] : 1940 81 From: Andres Garcia MD [...] that he felt chills this morning. [facility] Medical History Benign essential hypertension Cataract Diabetes [...] 93.5 H Lymph % (Auto) 3.7 L [place] % (Auto) 1.8 Eos % (Auto) 0.2 [...] Color Urine Clarity Urine pH Ur Specific [place] Urine Protein Urine Glucose (UA) Urine Ketones Urine Occult Blood Urine Nitrite Urine Bilirubin Urine Urobilinogen Ur Leukocyte Esterase Urine RBC Urine WBC Ur Squamous Epith Cells Urine Bacteria Urine Mucus 06/05/22 06/05/22 18:04 20:28 WBC RBC Hgb Hct MCV MCH MCHC RDW Std Deviation RDW Coeff of Moise Plt Count MPV Immature Gran % (Auto) Neut % (Auto) Lymph % (Auto) [place] % (Auto) Eos % (Auto) Baso % [...] Clarity Cloudy Urine pH 6.0 Ur Specific [place] 1.010 Urine Protein 30 H Urine Glucose [...] 19:22 EST Reading Location ID and State: [facility] / [place] , Service support , Discharge Plan Dx/Rx/DC Orders Clinical Impression: Diabetes, Sepsis, UTI (urinary tract infection), Hypokalemia, Mild dehydration Disposition Disposition: Acute Care Hospital [facility] What to do if you have Problems For any increased pain, shortness of breath, bleeding, nausea or vomiting, chestpain, or any unexpected problems, contact your Primary Care Provider. Call [facility] ([phone]) or report to the closest Emergency Room. Call 911 if necessary. 06/05/222216 <Electronically signed by Andres Garcia MD> Cosigner Signature (if applicable): CC: Dr. Kb Lackey MD ~ Signed [facility] Work Phone: 1(881) 468-161503-01-[address] Garcia [facility] June 05, 2022 10:17pm Note Date/Time June 05, 2022 5:45 pm [facility] Medical Records Department [address] [place] [address] Emergency Department Summary 06/05/22 MR#: [id number] Acct: [id number] Name: JEAN-CLAUDE DOUGLAS Rep #:[id number] : 1940 81 From: Andres Garcia MD PCP: Dr. Kb Lackey MD Status:REG E R Location: [facility] History of Present Illness Chief Complaint: [...] that he felt chills this morning. [facility] Medical History Benign essential hypertension Cataract Diabetes [...] 93.5 H Lymph % (Auto) 3.7 L [place] % (Auto) 1.8 Eos % (Auto) 0.2 [...] Color Urine Clarity Urine pH Ur Specific [place] Urine Protein Urine Glucose (UA) Urine Ketones Urine Occult Blood Urine Nitrite Urine Bilirubin Urine Urobilinogen Ur Leukocyte Esterase Urine RBC Urine WBC Ur Squamous Epith Cells Urine Bacteria Urine Mucus 06/05/22 06/05/22 18:04 20:28 WBC RBC Hgb Hct MCV MCH MCHC RDW Std Deviation RDW Coeff of Moise Plt Count MPV Immature Gran % (Auto) Neut % (Auto) Lymph % (Auto) [place] % (Auto) Eos % (Auto) Baso % [...] Clarity Cloudy Urine pH 6.0 Ur Specific [place] 1.010 Urine Protein 30 H Urine Glucose [...] 19:22 EST Reading Location ID and State: [facility] / [place] , Service support , Discharge Plan Dx/Rx/DC Orders Clinical Impression: Diabetes, Sepsis, UTI (urinary tract infection), Hypokalemia, Mild dehydration Disposition Disposition: [facility] What to do if you have Problems For any increased pain, shortness of breath, bleeding, nausea or vomiting, chestpain, or any unexpected problems, contact your Primary Care Provider. Call [facility] ([phone]) or report to the closest Emergency Room. Call 911 if necessary. 06/05/222216 <Electronically signed by Andres Garcia MD> Cosigner Signature (if applicable): CC: Dr. Kb Lackey MD ~ Signed [facility] Work Phone: 1(558) 672-806402-02-2023 History of Present illness Narrative* Maribell Titus RN - 05/09/2022 8:32 AM EST [facility] TELEPHONIC OUTREACH Provider Action/FYI: 2nd attempt Appointments for Next 60 Days Date Time Provider Location Dept Phone 06/17/2022 10:20 AM [facility] [phone] Contact made with patient: No - Unable to leave message Entered next patient outreach date for the following business day, if third call please enter next outreach date for one week in the Track Pt. Outreach - End Outreach * Maribell Titus RN - 05/08/2022 4:02 PM EST [facility] TELEPHONIC OUTREACH Provider Action/FYI: Appointments for Next 60 Days Date Time Provider Location Dept Phone 06/17/2022 10:20 AM KB [facility] [phone] Contact made with patient: No - Unable to leave message Entered next patient outreach date for the following , if third call please enter next outreach date for one week in the Track Pt. Outreach - End Outreach documented in this encounterCinc[facility] Center01-19-2023 Miscellaneous Notes* Telephone Encounter - Teresa Restrepo LPN - 04/25/2022 8:08 AM EST calling regarding Metformin. Pt was increased to taking 2 twice a day. Pharmacy needs a new rxsent to them per . This needs to be sent to [facility] mail order pharmacy. Patient has [...] you. Teresa Restrepo LPN documented in this encounterCinc[facility] Center01-04-2023 History of Present illness Narrative* Maribell Titus [...] like to speak with a social work sports team marketing intern to help give you support for any [...] you up for automated weekly questionnaires through [employer] This is an easy way for us [...] PtOutreach and End outreach. documented in this encounterCincinnati [facility] Center12-06-2022 History of Present illness Narrative* Maribell Titus RN - 03/12/2022 3:15 PM EST [facility] TELEPHONIC OUTREACH Provider Action/FYI: Spoke with [...] like to speak with a social work sports team marketing intern to help give you support for any [...] you up for automated weekly questionnaires through [employer] This is an easy way for us [...] PtOutreach and End outreach. documented in this encounterCinc[facility] Center11-03-2022 Miscellaneous Notes* Telephone Encounter - Kisha Hightower [...] advise. Kisha Bhatti Pss documented in this encounterCincinnati [facility] Center11-01-2022 Miscellaneous Notes* Telephone Encounter - Luis Mccrary LPN - 02/05/2022 11:59 AM EDT TC to pt, spoke /c pt Scarlet, notified of results/provider instructions. She verbalized understanding. Luis Mccrary LPN * Telephone Encounter - Kb Lackey MD - 02/04/2022 5:48 PM EDT Thyroid still looks over corrected. Change synthroid to 125 mcg a day. Recheck tsh in six weeks. documented in this encounterCincinnati [facility] Center09-14-2022 Miscellaneous Notes* Telephone Encounter - Luis Mccrary LPN - 12/19/2021 9:40 AM EDT TC to pt , notified of provider response. Pt verbalized understanding. Luisrosalie Mccrary LPN * Telephone Encounter - Kb Lackey MD - 12/19/2021 8:42 AM EDT His tsh is low which indicates he might be on too much synthroid. Change to 137. Rx sent . Recheck tsh in six weeks. documented in this encounterCincinnati [facility] Center09-13-2022 History of Present illness Narrative* Kb Lackey [...] Abs Lymph 1.00 - 4.00 k/uL 2.19 [place]% % 8.5 Abs [place] <0.87 k/uL 0.69 Eosin% % 1.2 Abs [...] morning. Using it prn per Dr. King isidro,iron,grg-HD-skajdbi cmb.24 400 mcg tab Take 1 tablet [...] RTO in six months documented in this encounterCincinnati [facility] Medical Center09-13-2022 History of Past illness Narrative* Problem Noted [...] of this encounter (statuses as of 12/23/2022) [facility] of Past illness Narrative* Problem Noted [...] of this encounter (statuses as of 12/24/2022) [facility] Narrative* Problem Noted [...] of this encounter (statuses as of 01/11/2023) [facility] of [facility] Narrative* Problem Noted [...] of this encounter (statuses as of 01/29/2023) [facility] of [facility] illness Narrative* Problem Noted [...] of this encounter (statuses as of 03/04/2023) [facility] of [facility] illness Narrative* Problem Noted [...] of this encounter (statuses as of 06/11/2023) [facility] of [facility] illness Narrative* Problem Noted [...] of this encounter (statuses as of 06/26/2023) [facility] of Past illness Narrative* Problem Noted [...] of this encounter (statuses as of 06/27/2023) [facility] of Past illness Narrative* Problem Noted [...] of this encounter (statuses as of 07/25/2023) [facility] of [facility] Narrative* Problem Noted [...] of this encounter (statuses as of 07/26/2023) [facility] History of Present illness Narrative* Maribell Titus RN - 12/13/2021 4:05 PM EDT Images from the original note were not included. [facility] CD[facility] Enrollment Provider Action/FYI: Enrolled in [employer] with [employer] introduction [phone] Appointments for Next 60 Days Date Time Provider Location Dept Phone 12/13/2021 9:00 AM [facility] [phone] 12/18/2021 4:00 PM KB [facility] [phone] Patient referred by: [facility] [place] Jaky Contact made with patient: Yes - Patient identified by name and . Discussed care with spouse Demarcus this is Maribell Titus RN and I am calling from Kb Lackey MD office at the [facility]. I am a RN Jewelry Internship with our [employer] [facility] program. [...] few questions once a week through your [employer] account. It will automaticallyshow up for you [...] goal align with programs offered at the [facility]? No Patient accepts telephonic outreach Thank you [...] stressful. Can we connect you with a [facility] Health Discount Clerk to find a program that could help [...] from today s date) [facility] History of Present illness Narrative* Maribell Titus RN - 01/11/2022 9:18 AM EDT [facility] TELEPHONIC OUTREACH Provider Action/FYI: Has not started new insulin regimine yet(OSH ENDO A1C 12.1% ) - discussed relation of diet with insulin. Reminded about [facility] [phone] . Follow up from / since previous [...] like to speak with a social work sports team marketing intern to help give you support for any [...] you up for automated weekly questionnaires through [employer] This is an easy way for us [...] PtOutreach and End outreach. [facility] History of Past illness Narrative* Problem Noted Date Resolved Date Blood in stool 07/07/2015 04/25/2016 Dementia 03/20/2009 05/05/2017 Overview: Was listed by Dr. Gilbert. Has had no issues since. Major depressive disorder, recurrent episode, mo derate 01/26/2008 05/06/2019 INGUINAL HERNIA, UNILATERAL W/O GANGRENE/OBSTRUC TION 01/05/2007 10/06/2009 documented as of this encounter (statuses as of 12/05/2021) [facility] History of Past illness Narrative* Problem Noted Date Resolved Date Blood in stool 07/07/2015 04/25/2016 Dementia 03/20/2009 05/05/2017 Overview: Was listed by Dr. Gilbert. Has had no issues since. Major depressive disorder, recurrent episode, mo derate 01/26/2008 05/06/2019 INGUINAL HERNIA, UNILATERAL W/O GANGRENE/OBSTRUC TION 01/05/2007 10/06/2009 documented as of this encounter (statuses as of 12/13/2021) [facility] of Past illness Narrative* Problem Noted Date Resolved Date Blood in stool 07/07/2015 04/25/2016 Dementia 03/20/2009 05/05/2017 Overview: Was listed by Dr. Gilbert. Has had no issues since. Major depressive disorder, recurrent episode, mo derate 01/26/2008 05/06/2019 INGUINAL HERNIA, UNILATERAL W/O GANGRENE/OBSTRUC TION 01/05/2007 10/06/2009 documented as of this encounter (statuses as of 12/18/2021) [facility] of [facility] illness Narrative* Problem Noted Date Resolved Date Blood in stool 07/07/2015 04/25/2016 Dementia 03/20/2009 05/05/2017 Overview: Was listed by Dr. Gilbert. Has had no issues since. Major depressive disorder, recurrent episode, mo derate 01/26/2008 05/06/2019 INGUINAL HERNIA, UNILATERAL W/O GANGRENE/OBSTRUC TION 01/05/2007 10/06/2009 documented as of this encounter (statuses as of 12/19/2021) [facility] of [facility] illness Narrative* Problem Noted Date Resolved Date Blood in stool 07/07/2015 04/25/2016 Dementia 03/20/2009 05/05/2017 Overview: Was listed by Dr. Gilbert. Has had no issues since. Major depressive disorder, recurrent episode, mo derate 01/26/2008 05/06/2019 INGUINAL HERNIA, UNILATERAL W/O GANGRENE/OBSTRUC TION 01/05/2007 10/06/2009 documented as of this encounter (statuses as of 01/02/2022) [facility] Narrative* Problem Noted Date Resolved Date Blood in stool 07/07/2015 04/25/2016 Dementia 03/20/2009 05/05/2017 Overview: Was listed by Dr. Gilbert. Has had no issues since. Major depressive disorder, recurrent episode, mo derate 01/26/2008 05/06/2019 INGUINAL HERNIA, UNILATERAL W/O GANGRENE/OBSTRUC TION 01/05/2007 10/06/2009 documented as of this encounter (statuses as of 01/14/2022) [facility] Narrative* Problem Noted Date Resolved Date Blood in stool 07/07/2015 04/25/2016 Dementia 03/20/2009 05/05/2017 Overview: Was listed by Dr. Gilbert. Has had no issues since. Major depressive disorder, recurrent episode, mo derate 01/26/2008 05/06/2019 INGUINAL HERNIA, UNILATERAL W/O GANGRENE/OBSTRUC TION 01/05/2007 10/06/2009 documented as of this encounter (statuses as of 02/05/2022) [facility] Narrative* Problem Noted Date Resolved Date Blood in stool 07/07/2015 04/25/2016 Dementia 03/20/2009 05/05/2017 Overview: Was listed by Dr. Gilbert. Has had no issues since. Major depressive disorder, recurrent episode, mo derate 01/26/2008 05/06/2019 INGUINAL HERNIA, UNILATERAL W/O GANGRENE/OBSTRUC TION 01/05/2007 10/06/2009 documented as of this encounter (statuses as of 02/07/2022) [facility] Narrative* Problem Noted Date Resolved Date Blood in stool 07/07/2015 04/25/2016 Dementia 03/20/2009 05/05/2017 Overview: Was listed by Dr. Gilbert. Has had no issues since. Major depressive disorder, recurrent episode, mo derate 01/26/2008 05/06/2019 INGUINAL HERNIA, UNILATERAL W/O GANGRENE/OBSTRUC TION 01/05/2007 10/06/2009 documented as of this encounter (statuses as of 03/12/2022) [facility] Narrative* Problem Noted Date Resolved Date Blood in stool 07/07/2015 04/25/2016 Dementia 03/20/2009 05/05/2017 Overview: Was listed by Dr. Gilbert. Has had no issues since. Major depressive disorder, recurrent episode, mo derate 01/26/2008 05/06/2019 INGUINAL HERNIA, UNILATERAL W/O GANGRENE/OBSTRUC TION 01/05/2007 10/06/2009 documented as of this encounter (statuses as of 04/12/2022) [facility] Narrative* Problem Noted Date Resolved Date Blood in stool 07/07/2015 04/25/2016 Dementia 03/20/2009 05/05/2017 Overview: Was listed by Dr. Gilbert. Has had no issues since. Major depressive disorder, recurrent episode, mo derate 01/26/2008 05/06/2019 INGUINAL HERNIA, UNILATERAL W/O GANGRENE/OBSTRUC TION 01/05/2007 10/06/2009 documented as of this encounter (statuses as of 04/25/2022) [facility] Narrative* Problem Noted Date Resolved Date Blood in stool 07/07/2015 04/25/2016 Dementia 03/20/2009 05/05/2017 Overview: Was listed by Dr. Gilbert. Has had no issues since. Major depressive disorder, recurrent episode, mo derate 01/26/2008 05/06/2019 INGUINAL HERNIA, UNILATERAL W/O GANGRENE/OBSTRUC TION 01/05/2007 10/06/2009 documented as of this encounter (statuses as of 05/09/2022) [facility] Narrative* Problem Noted Date Resolved Date Blood in stool 07/07/2015 04/25/2016 Dementia 03/20/2009 05/05/2017 Overview: Was listed by Dr. Gilbert. Has had no issues since. Major depressive disorder, recurrent episode, mo derate 01/26/2008 05/06/2019 INGUINAL HERNIA, UNILATERAL W/O GANGRENE/OBSTRUC TION 01/05/2007 10/06/2009 documented as of this encounter (statuses as of 06/06/2022) [facility] of [facility] Narrative* Problem Noted Date Resolved Date Blood in stool 07/07/2015 04/25/2016 Dementia 03/20/2009 05/05/2017 Overview: Was listed by Dr. Gilbert. Has had no issues since. Major depressive disorder, recurrent episode, mo derate 01/26/2008 05/06/2019 INGUINAL HERNIA, UNILATERAL W/O GANGRENE/OBSTRUC TION 01/05/2007 10/06/2009 documented as of this encounter (statuses as of 06/11/2022) [facility] Narrative* Problem Noted Date Resolved Date Blood in stool 07/07/2015 04/25/2016 Dementia 03/20/2009 05/05/2017 Overview: Was listed by Dr. Gilbert. Has had no issues since. Major depressive disorder, recurrent episode, mo derate 01/26/2008 05/06/2019 INGUINAL HERNIA, UNILATERAL W/O GANGRENE/OBSTRUC TION 01/05/2007 10/06/2009 documented as of this encounter (statuses as of 06/12/2022) [facility] Narrative* Problem Noted Date Resolved Date Blood in stool 07/07/2015 04/25/2016 Dementia 03/20/2009 05/05/2017 Overview: Was listed by Dr. Gilbert. Has had no issues since. Major depressive disorder, recurrent episode, mo derate 01/26/2008 05/06/2019 INGUINAL HERNIA, UNILATERAL W/O GANGRENE/OBSTRUC TION 01/05/2007 10/06/2009 documented as of this encounter (statuses as of 06/17/2022) [facility] Narrative* Problem Noted Date Resolved Date Blood in stool 07/07/2015 04/25/2016 Dementia 03/20/2009 05/05/2017 Overview: Was listed by Dr. Gilbert. Has had no issues since. Major depressive disorder, recurrent episode, mo derate 01/26/2008 05/06/2019 INGUINAL HERNIA, UNILATERAL W/O GANGRENE/OBSTRUC TION 01/05/2007 10/06/2009 documented as of this encounter (statuses as of 06/27/2022) [facility] Narrative* Problem Noted Date Resolved Date Blood in stool 07/07/2015 04/25/2016 Dementia 03/20/2009 05/05/2017 Overview: Was listed by Dr. Gilbert. Has had no issues since. Major depressive disorder, recurrent episode, mo derate 01/26/2008 05/06/2019 INGUINAL HERNIA, UNILATERAL W/O GANGRENE/OBSTRUC TION 01/05/2007 10/06/2009 documented as of this encounter (statuses as of 07/03/2022) [facility] Narrative* Problem Noted Date Resolved Date Blood in stool 07/07/2015 04/25/2016 Dementia 03/20/2009 05/05/2017 Overview: Was listed by Dr. Gilbert. Has had no issues since. Major depressive disorder, recurrent episode, mo derate 01/26/2008 05/06/2019 INGUINAL HERNIA, UNILATERAL W/O GANGRENE/OBSTRUC TION 01/05/2007 10/06/2009 documented as of this encounter (statuses as of 07/18/2022) [facility] Narrative* Problem Noted Date Resolved Date Blood in stool 07/07/2015 04/25/2016 Dementia 03/20/2009 05/05/2017 Overview: Was listed by Dr. Gilbert. Has had no issues since. Major depressive disorder, recurrent episode, mo derate 01/26/2008 05/06/2019 INGUINAL HERNIA, UNILATERAL W/O GANGRENE/OBSTRUC TION 01/05/2007 10/06/2009 documented as of this encounter (statuses as of 07/19/2022) [facility] Narrative* Problem Noted Date Resolved Date Blood in stool 07/07/2015 04/25/2016 Dementia 03/20/2009 05/05/2017 Overview: Was listed by Dr. Gilbert. Has had no issues since. Major depressive disorder, recurrent episode, mo derate 01/26/2008 05/06/2019 INGUINAL HERNIA, UNILATERAL W/O GANGRENE/OBSTRUC TION 01/05/2007 10/06/2009 documented as of this encounter (statuses as of 07/26/2022) [facility] Narrative* Problem Noted Date Resolved Date Blood in stool 07/07/2015 04/25/2016 Dementia 03/20/2009 05/05/2017 Overview: Was listed by Dr. Gilbert. Has had no issues since. Major depressive disorder, recurrent episode, mo derate 01/26/2008 05/06/2019 INGUINAL HERNIA, UNILATERAL W/O GANGRENE/OBSTRUC TION 01/05/2007 10/06/2009 documented as of this encounter (statuses as of 09/21/2022) [facility] Narrative* Problem Noted Date Diagnosed Date Resolved Date Blood in stool 07/07/2015 04/25/2016 Dementia 03/20/2009 05/05/2017 Overview: Was listed by Dr. Gilbert. Has had no issues since. Major depressive disorder, r ecurrent episode, moderate 01/26/2008 05/06/2019 INGUINAL HERNIA, UNILATERAL W/O GANGRENE/OBSTRUCTION 01/05/2007 10/06/2009 documented as of this encounter (statuses as of 10/18/2022) [facility] Narrative* Problem Noted Date Diagnosed Date Resolved Date Blood in stool 07/07/2015 04/25/2016 Dementia 03/20/2009 05/05/2017 Overview: Was listed by Dr. Gilbert. Has had no issues since. Major depressive disorder, r ecurrent episode, moderate 01/26/2008 05/06/2019 INGUINAL HERNIA, UNILATERAL W/O GANGRENE/OBSTRUCTION 01/05/2007 10/06/2009 documented as of this encounter (statuses as of 11/15/2022) [facility] Narrative* Problem Noted Date Diagnosed Date Resolved Date Blood in stool 07/07/2015 04/25/2016 Dementia 03/20/2009 05/05/2017 Overview: Was listed by Dr. Gilbert. Has had no issues since. Major depressive disorder, r ecurrent episode, moderate 01/26/2008 05/06/2019 INGUINAL HERNIA, UNILATERAL W/O GANGRENE/OBSTRUCTION 01/05/2007 10/06/2009 documented as of this encounter (statuses as of 12/13/2022) [facility] Narrative* Problem Noted Date Diagnosed Date Resolved Date Blood in stool 07/07/2015 04/25/2016 Dementia 03/20/2009 05/05/2017 Overview: Was listed by Dr. Gilbert. Has had no issues since. Major depressive disorder, r ecurrent episode, moderate 01/26/2008 05/06/2019 INGUINAL HERNIA, UNILATERAL W/O GANGRENE/OBSTRUCTION 01/05/2007 10/06/2009 documented as of this encounter (statuses as of 12/14/2022) [facility] Buenrostro [facility] June 07, 2022 4:29pm Note Date/Time June 07, 2022 4:21 pm [facility] Medical Records Department [address] [place] [address] Instructions for Home/Discharge Instructions 06/07/22 [id number] MR#: [id number] Acct: [id number] Name: JEAN-CLAUDE DOUGLAS Rep #:[id number] : [id number] From: Dennys Buenrostro DO [...] MD; Dr. Kb Lackey MD ~ Signed [facility] Work Phone: Evaluation note* Diagnosis CKD (chronic kidney disease) stage 1, GFR 90 ml/min or greater- Primary Chronic kidney disease, Stage I [facility]* Diagnosis Hypothyroidism, unspecified type- Primary Essential hypertension, benign Type 2 diabetes mellitus without complication, without long-term current use of insulin (HCC) documented in this encounter [facility] note* Diagnosis Hypothyroidism, unspecified type- Primary [facility] this [facility]* Diagnosis Hypothyroidism, unspecified type documented in this encounter [facility] note* Diagnosis CKD (chronic kidney disease) stage 1, GFR 90 ml/min or greater- Primary Chronic kidney disease, Stage I documented in this encounter [facility] note* Diagnosis Type 2 diabetes mellitus without complication, without long-term current use of insulin ([facility]) [facility] this [facility]* Diagnosis Onset Date Resolution Status Benign essential hypertension chronic Diabetes chronic Hypothyroidism (acquired) ch ronic Diabetes chronic Hypokalemia acute Mild dehydration acute Sepsis acute UTI (urinary tract infection) acute Diabetes chronic [facility] Work Phone: Evaluation note* Diagnosis Sepsis, due to unspecified organism, unspecified whether acute organ dysfunction present (HCC)- Primary Dehydration Essential hypertension, benign Hypothyroidism, unspecified type Type 2 diabetes mellitus without complication, without long-term current use of insulin ([facility]) documented in this encounter [facility] note* Diagnosis Diabetes mellitus (HCC) Type II or unspecified type diabetes mellitus without mention of complication, not stated as uncontrolled documented in this encounter [facility] note* Diagnosis Hypothyroidism, unspecified type documented in this encounter [facility] note* Diagnosis Type 2 diabetes mellitus without complication, without long-term current use of insulin (HCC)- Primary Essential hypertension, benign Chronic renal insufficiency, stage 3 (moderate) ([facility]) Vitamin B12 deficiency Other B-complex deficiencies Tremor Abnormal involuntary movements Vitamin D deficiency Unspecified vitamin D deficiency documented [facility] this [facility]* Diagnosis Essential hypertension, benign- Primary documented in this [facility]* Diagnosis Essential hypertension, benign- Primary Tremor Abnormal involuntary movements Chronic renal insufficiency, stage 3 (moderate) (HCC) Type 2 diabetes mellitus without complication, without long-term current use of insulin (HCC) Hypothyroidism, unspecified type Vitamin D deficiency Unspecified vitamin D deficiency Iron deficiency anemia, unspecified iron deficiency anemia type Renal insufficiency Unspecified disorder of kidney and ureter [facility]* Diagnosis Proteinuria, unspecified type- Primary Pyuria Other nonspecific finding on examination of urine documented [facility] this [facility]* Diagnosis Recurrent UTI (urinary tract infection)- Primary Urinary tract infection, site not specified documented in this encounter [facility]* Diagnosis Essential hypertension, benign documented in this [facility]* Diagnosis Essential hypertension, benign- Primary Vitamin B12 deficiency Other B-complex deficiencies Chronic renal insufficiency, stage 3 (moderate) ([facility]) Hypothyroidism, unspecified type Type 2 diabetes mellitus without complication, without long-term current use of insulin (HCC) Iron deficiency anemia, unspecified iron deficiency anemia type Vitamin D deficiency Unspecified vitamin D deficiency Encounter for immunization Need for other specified prophylactic vaccination against single bacterial disease documented [facility] this encounter [facility]* Diagnosis Vitamin B12 deficiency- Primary Other B-complex deficiencies Chronic renal insufficiency, stage 3 (moderate) ([facility]) Iron deficiency anemia, unspecified iron deficiency anemia type documented in this encounter [facility]* Diagnosis Anemia, unspecified type- Primary Microscopic hematuria documented in this encounter [facility] note* Diagnosis Hypothyroidism, unspecified type documented in this encounter [facility] note* Diagnosis Essential hypertension, benign documented in this encounter [facility] Chief Complaint and Reason for Visit Chief [...] Date/ Time Name of Medical Power of Staff Radiographer SCARLET STELLA June 05, 2022 6:41pm Living Will Yes June 05, 2022 6:41pm Power of Staff Radiographer Yes June 05 6:41pm Advance Directive Response Recorded Date/ Time Name of Medical Power of Staff Radiographer Scarlet Lucio Mohinder resendiz June 05, 2022 11:19pm Living Will Yes June 05, 2022 11:19pm Power of Staff Radiographer Yes June 05 11:19pm Advance Directive Response Recorded Date/ Time Living Will Yes July 26, 2024 9:05pm Do you have a Healthcare Power of Staff Radiographer? Yes July 26, 2024 9:05pm Name of Medical Power of Staff Radiographer . July 26, 2024 9:05pm Reason for Referral Specialty Diagnoses / Procedures Referred By Contac t Referred To Contact Infectious Diseases Diagnoses Recurrent UTI (urinary tract infection) Procedures CONSULT TO INFECTIOUS DISEASES OFFICE/OUTPATIENT [facility] 60 MINUTES Jeni Graham, PRIMER POWDER BLENDER W[employer].BREAST SPLITTER [address] [place] [address] Referral ID Status Reason Start Date Expiration Date Visits Requested Visits Authorized [id number] Authorized PCP Requested Referral 08/25/2023 08/24/2024 1 [...] or prosecute any alcohol or drug abuse patient.[facility] the event this information is protected by the Federal Confidentiality of Alcohol and Drug Abuse Patient Records regulations: The Federal rules restrict any use of the information to criminally investigate or prosecute any alcohol or drug abuse patient.[facility] the event this information is protected by the Federal Confidentiality of Alcohol and Drug Abuse Patient Records regulations: The Federal rules restrict any use of the information to criminally investigate or prosecute any alcohol or drug abuse patient.[facility] the event this information is protected by the Federal Confidentiality of Alcohol and Drug Abuse Patient Records regulations: The Federal rules restrict any use of the information to criminally investigate or prosecute any alcohol or drug abuse patient.[facility] the event this information is protected by the Federal Confidentiality of Alcohol and Drug Abuse Patient Records regulations: The Federal rules restrict any use of the information to criminally investigate or prosecute any alcohol or drug abuse patient.[facility] Center[facility] the event this information is protected by the Federal Confidentiality of Alcohol and Drug Abuse Patient Records regulations: The Federal rules restrict any use of the information to criminally investigate or prosecute any alcohol or drug abuse patient.[facility] Center[facility] the event this information is protected by the Federal Confidentiality of Alcohol and Drug Abuse Patient Records regulations: The Federal rules restrict any use of the information to criminally investigate or prosecute any alcohol or drug abuse patient.[facility] Center[facility] the event this information is protected by the Federal Confidentiality of Alcohol and Drug Abuse Patient Records regulations: The Federal rules restrict any use of the information to criminally investigate or prosecute any alcohol or drug abuse patient.[facility] the event this information is protected by the Federal Confidentiality of Alcohol and Drug Abuse Patient Records regulations: The Federal rules restrict any use of the information to criminally investigate or prosecute any alcohol or drug abuse patient.[facility] Center[facility] the event this information is protected by the Federal Confidentiality of Alcohol and Drug Abuse Patient Records regulations: The Federal rules restrict any use of the information to criminally investigate or prosecute any alcohol or drug abuse patient.[facility] Center[facility] the event this information is protected by the Federal Confidentiality of Alcohol and Drug Abuse Patient Records regulations: The Federal rules restrict any use of the information to criminally investigate or prosecute any alcohol or drug abuse patient.[facility] CenterIn the event this information is protected by the Federal Confidentiality of Alcohol and Drug Abuse Patient Records regulations: The Federal rules restrict any use of the information to criminally investigate or prosecute any alcohol or drug abuse patient.[facility] Center[facility] the event this information is protected by the Federal Confidentiality of Alcohol and Drug Abuse Patient Records regulations: The Federal rules restrict any use of the information to criminally investigate or prosecute any alcohol or drug abuse patient.[facility] CenterIn the event this information is protected by the Federal Confidentiality of Alcohol and Drug Abuse Patient Records regulations: The Federal rules restrict any use of the information to criminally investigate or prosecute any alcohol or drug abuse patient.[facility] CenterIn the event this information is protected by the Federal Confidentiality of Alcohol and Drug Abuse Patient Records regulations: The Federal rules restrict any use of the information to criminally investigate or prosecute any alcohol or drug abuse patient.[facility] CenterIn the event this information is protected by the Federal Confidentiality of Alcohol and Drug Abuse Patient Records regulations: The Federal rules restrict any use of the information to criminally investigate or prosecute any alcohol or drug abuse patient.[facility] CenterIn the event this information is protected by the Federal Confidentiality of Alcohol and Drug Abuse Patient Records regulations: The Federal rules restrict any use of the information to criminally investigate or prosecute any alcohol or drug abuse patient.[facility] CenterIn the event this information is protected by the Federal Confidentiality of Alcohol and Drug Abuse Patient Records regulations: The Federal rules restrict any use of the information to criminally investigate or prosecute any alcohol or drug abuse patient.[facility] CenterIn the event this information is protected by the Federal Confidentiality of Alcohol and Drug Abuse Patient Records regulations: The Federal rules restrict any use of the information to criminally investigate or prosecute any alcohol or drug abuse patient.[facility] CenterIn the event this information is protected by the Federal Confidentiality of Alcohol and Drug Abuse Patient Records regulations: The Federal rules restrict any use of the information to criminally investigate or prosecute any alcohol or drug abuse patient.[facility] CenterIn the event this information is protected by the Federal Confidentiality of Alcohol and Drug Abuse Patient Records regulations: The Federal rules restrict any use of the information to criminally investigate or prosecute any alcohol or drug abuse patient.[facility] CenterIn the event this information is protected by the Federal Confidentiality of Alcohol and Drug Abuse Patient Records regulations: The Federal rules restrict any use of the information to criminally investigate or prosecute any alcohol or drug abuse patient.[facility] CenterIn the event this information is protected by the Federal Confidentiality of Alcohol and Drug Abuse Patient Records regulations: The Federal rules restrict any use of the information to criminally investigate or prosecute any alcohol or drug abuse patient.[facility] CenterIn the event this information is protected by the Federal Confidentiality of Alcohol and Drug Abuse Patient Records regulations: The Federal rules restrict any use of the information to criminally investigate or prosecute any alcohol or drug abuse patient.[facility] CenterIn the event this information is protected by the Federal Confidentiality of Alcohol and Drug Abuse Patient Records regulations: The Federal rules restrict any use of the information to criminally investigate or prosecute any alcohol or drug abuse patient.[facility] CenterIn the event this information is protected by the Federal Confidentiality of Alcohol and Drug Abuse Patient Records regulations: The Federal rules restrict any use of the information to criminally investigate or prosecute any alcohol or drug abuse patient.[facility] CenterIn the event this information is protected by the Federal Confidentiality of Alcohol and Drug Abuse Patient Records regulations: The Federal rules restrict any use of the information to criminally investigate or prosecute any alcohol or drug abuse patient.[facility] CenterIn the event this information is protected by the Federal Confidentiality of Alcohol and Drug Abuse Patient Records regulations: The Federal rules restrict any use of the information to criminally investigate or prosecute any alcohol or drug abuse patient.[facility] CenterIn the event this information is protected by the Federal Confidentiality of Alcohol and Drug Abuse Patient Records regulations: The Federal rules restrict any use of the information to criminally investigate or prosecute any alcohol or drug abuse patient.[facility] CenterIn the event this information is protected by the Federal Confidentiality of Alcohol and Drug Abuse Patient Records regulations: The Federal rules restrict any use of the information to criminally investigate or prosecute any alcohol or drug abuse patient.[facility] CenterIn the event this information is protected by the Federal Confidentiality of Alcohol and Drug Abuse Patient Records regulations: The Federal rules restrict any use of the information to criminally investigate or prosecute any alcohol or drug abuse patient.[facility] CenterIn the event this information is protected by the Federal Confidentiality of Alcohol and Drug Abuse Patient Records regulations: The Federal rules restrict any use of the information to criminally investigate or prosecute any alcohol or drug abuse patient.[facility] CenterIn the event this information is protected by the Federal Confidentiality of Alcohol and Drug Abuse Patient Records regulations: The Federal rules restrict any use of the information to criminally investigate or prosecute any alcohol or drug abuse patient.[facility] CenterIn the event this information is protected by the Federal Confidentiality of Alcohol and Drug Abuse Patient Records regulations: The Federal rules restrict any use of the information to criminally investigate or prosecute any alcohol or drug abuse patient.[facility] CenterIn the event this information is protected by the Federal Confidentiality of Alcohol and Drug Abuse Patient Records regulations: The Federal rules restrict any use of the information to criminally investigate or prosecute any alcohol or drug abuse patient.[facility] CenterIn the event this information is protected by the Federal Confidentiality of Alcohol and Drug Abuse Patient Records regulations: The Federal rules restrict any use of the information to criminally investigate or prosecute any alcohol or drug abuse patient.[facility] CenterIn the event this information is protected by the Federal Confidentiality of Alcohol and Drug Abuse Patient Records regulations: The Federal rules restrict any use of the information to criminally investigate or prosecute any alcohol or drug abuse patient.[facility] CenterIn the event this information is protected by the Federal Confidentiality of Alcohol and Drug Abuse Patient Records regulations: The Federal rules restrict any use of the information to criminally investigate or prosecute any alcohol or drug abuse patient.[facility] CenterIn the event this information is protected by the Federal Confidentiality of Alcohol and Drug Abuse Patient Records regulations: The Federal rules restrict any use of the information to criminally investigate or prosecute any alcohol or drug abuse patient.[facility] CenterIn the event this information is protected by the Federal Confidentiality of Alcohol and Drug Abuse Patient Records regulations: The Federal rules restrict any use of the information to criminally investigate or prosecute any alcohol or drug abuse patient.[facility] CenterIn the event this information is protected by the Federal Confidentiality of Alcohol and Drug Abuse Patient Records regulations: The Federal rules restrict any use of the information to criminally investigate or prosecute any alcohol or drug abuse patient.[facility] CenterIn the event this information is protected by the Federal Confidentiality of Alcohol and Drug Abuse Patient Records regulations: The Federal rules restrict any use of the information to criminally investigate or prosecute any alcohol or drug abuse patient.[facility] CenterIn the event this information is protected by the Federal Confidentiality of Alcohol and Drug Abuse Patient Records regulations: The Federal rules restrict any use of the information to criminally investigate or prosecute any alcohol or drug abuse patient.[facility] CenterIn the event this information is protected by the Federal Confidentiality of Alcohol and Drug Abuse Patient Records regulations: The Federal rules restrict any use of the information to criminally investigate or prosecute any alcohol or drug abuse patient.[facility] CenterIn the event this information is protected by the Federal Confidentiality of Alcohol and Drug Abuse Patient Records regulations: The Federal rules restrict any use of the information to criminally investigate or prosecute any alcohol or drug abuse patient.[facility] CenterIn the event this information is protected by the Federal Confidentiality of Alcohol and Drug Abuse Patient Records regulations: The Federal rules restrict any use of the information to criminally investigate or prosecute any alcohol or drug abuse patient.[facility] CenterIn the event this information is protected by the Federal Confidentiality of Alcohol and Drug Abuse Patient Records regulations: The Federal rules restrict any use of the information to criminally investigate or prosecute any alcohol or drug abuse patient.[facility] CenterIn the event this information is protected by the Federal Confidentiality of Alcohol and Drug Abuse Patient Records regulations: The Federal rules restrict any use of the information to criminally investigate or prosecute any alcohol or drug abuse patient.[facility] CenterIn the event this information is protected by the Federal Confidentiality of Alcohol and Drug Abuse Patient Records regulations: The Federal rules restrict any use of the information to criminally investigate or prosecute any alcohol or drug abuse patient.[facility] CenterIn the event this information is protected by the Federal Confidentiality of Alcohol and Drug Abuse Patient Records regulations: The Federal rules restrict any use of the information to criminally investigate or prosecute any alcohol or drug abuse patient.[facility] CenterIn the event this information is protected by the Federal Confidentiality of Alcohol and Drug Abuse Patient Records regulations: The Federal rules restrict any use of the information to criminally investigate or prosecute any alcohol or drug abuse patient.[facility] CenterIn the event this information is protected by the Federal Confidentiality of Alcohol and Drug Abuse Patient Records regulations: The Federal rules restrict any use of the information to criminally investigate or prosecute any alcohol or drug abuse patient.[facility] CenterIn the event this information is protected by the Federal Confidentiality of Alcohol and Drug Abuse Patient Records regulations: The Federal rules restrict any use of the information to criminally investigate or prosecute any alcohol or drug abuse patient.[facility] CenterIn the event this information is protected by the Federal Confidentiality of Alcohol and Drug Abuse Patient Records regulations: The Federal rules restrict any use of the information to criminally investigate or prosecute any alcohol or drug abuse patient.[facility] CenterIn the event this information is protected by the Federal Confidentiality of Alcohol and Drug Abuse Patient Records regulations: The Federal rules restrict any use of the information to criminally investigate or prosecute any alcohol or drug abuse patient.[facility] CenterIn the event this information is protected by the Federal Confidentiality of Alcohol and Drug Abuse Patient Records regulations: The Federal rules restrict any use of the information to criminally investigate or prosecute any alcohol or drug abuse patient.[facility] CenterIn the event this information is protected by the Federal Confidentiality of Alcohol and Drug Abuse Patient Records regulations: The Federal rules restrict any use of the information to criminally investigate or prosecute any alcohol or drug abuse patient.[facility] CenterIn the event this information is protected by the Federal Confidentiality of Alcohol and Drug Abuse Patient Records regulations: The Federal rules restrict any use of the information to criminally investigate or prosecute any alcohol or drug abuse patient.[facility] CenterIn the event this information is protected by the Federal Confidentiality of Alcohol and Drug Abuse Patient Records regulations: The Federal rules restrict any use of the information to criminally investigate or prosecute any alcohol or drug abuse patient.[facility] CenterIn the event this information is protected by the Federal Confidentiality of Alcohol and Drug Abuse Patient Records regulations: The Federal rules restrict any use of the information to criminally investigate or prosecute any alcohol or drug abuse patient.[facility] CenterIn the event this information is protected by the Federal Confidentiality of Alcohol and Drug Abuse Patient Records regulations: The Federal rules restrict any use of the information to criminally investigate or prosecute any alcohol or drug abuse patient.[facility] CenterIn the event this information is protected by the Federal Confidentiality of Alcohol and Drug Abuse Patient Records regulations: The Federal rules restrict any use of the information to criminally investigate or prosecute any alcohol or drug abuse patient.[facility] CenterIn the event this information is protected by the Federal Confidentiality of Alcohol and Drug Abuse Patient Records regulations: The Federal rules restrict any use of the information to criminally investigate or prosecute any alcohol or drug abuse patient.[facility] CenterIn the event this information is protected by the Federal Confidentiality of Alcohol and Drug Abuse Patient Records regulations: The Federal rules restrict any use of the information to criminally investigate or prosecute any alcohol or drug abuse patient.[facility] CenterIn the event this information is protected by the Federal Confidentiality of Alcohol and Drug Abuse Patient Records regulations: The Federal rules restrict any use of the information to criminally investigate or prosecute any alcohol or drug abuse patient.[facility] CenterIn the event this information is protected by the Federal Confidentiality of Alcohol and Drug Abuse Patient Records regulations: The Federal rules restrict any use of the information to criminally investigate or prosecute any alcohol or drug abuse patient.[facility] Reason for Visit (unrecogniz ed section and content) Reason Onset Date Comments [facility] outreach 12/05/2021 in Sight enrollment with [facility] introduction Reason Onset Date Comments [facility] 12/13/2021 in Sight enrollment with [facility] introduction Reason Comments Follow Up Reason Comments Results Reason Onset Date Comments [facility] Outreach 01/11/2022 in Sight check in call Reason Onset Date Comments Refill Request 02/07/2022 Reason Onset Date Comments [facility] 03/12/2022 Check in call Reason Onset Date Comments [facility] 04/10/2022 Check in call Reason Onset Date Comments Refill Request 04/25/2022 Reason Onset Date Comments [facility] 05/08/2022 Check in call Reason Onset Date Comments [facility] 06/06/2022 Check in call Reason Onset Date Comments Transition Of Care 06/10/2022 Reason Comments Patient Update Reason Comments Hospital F/U Reason Onset Date Comments [facility] 06/26/2022 Check in call Reason Onset Date Comments [facility] 07/25/2022 Check in call Reason Onset Date Comments [facility] 09/20/2022 Check in call Reason Onset Date Comments [facility] 10/18/2022 CDM telepho levi Reason Onset Date Comments [facility] 11/15/2022 Reason Onset Date Comments [facility] 12/13/2022 CDM telepho levi Reason Onset Date Comments Refill Request 12/13/2022 Reason Comments Physical Diabetes Reason Onset Date Comments [facility] 01/10/2023 CDM telepho levi Reason Comments Blood Pressure Check Specialty Diagnoses / Procedures Referred By Julieth robison Referred To Contact FAMILY MEDICINE Diagnoses Follow ups Procedures Follow ups Kb Lackey MD [address] [place] [address] [facility] [address] [place] [address] Referral ID Status Reason Start Date Expiration Date Visits Requested Visits Authorized [id number] Pending Review OON/Self Pay Override 12/23/2022 07/06/2023 5 5 Reason Onset Date Comments [facility] 03/03/2023 CDM telepho levi Reason Onset Date Comments Refill Request 06/26/2023 Reason Onset Date Comments community monitoring 06/26/2023 CDM telepho levi Reason Onset Date Comments community monitoring 07/24/2023 CDM telepho levi Reason Comments 6 Month Exam Reason Onset Date Comments COMMUNITY MONITORING 08/21/2023 CDM telepho levi Reason Comments Appointment Reason Comments Appointment Infectious Diseases Dr Didier Man @ [facility] [place] on 09/01 next week Reason Comments Consult [...] Care Teams (unrecognized sec tion and content) Project Director Relationship Specialty Start Date End Date Kb Lackey MD [address] [place], [place] [address] PCP - General Family Practice 04/18/14 Project Director Relationship Specialty Start Date End Date Kb Lackey MD [address] [place] [address] PCP - General Family Practice 04/18/14AugustMaribell RN [address] [place] [address] Blister Pack Operator Unspecified 12/13/21 Project Director Relationship Specialty Start Date End Date Kb Lackey MD [address] [place] [address] PCP - General Family Practice 04/18/14August, Maribell Rodríguez, RN [address] [place] [address] Blister Pack Operator Unspecified 12/13/21 Project Director Relationship Specialty Start Date End Date Kb Lackey MD [address] [place] [address] PCP - General Family Practice 04/18/14August, Maribell Rodríguez RN [address] [place] [address] Blister Pack Operator Unspecified 12/13/21 Project Director Relationship Specialty Start Date End Date Kb Lackey MD [address] [place] [address] PCP - General Family Medicine 04/18/14August, Maribell Rodríguez RN [address] [place] [address] Blister Pack Operator Unspecified 12/13/21 Project Director Relationship Specialty Start Date End Date Kb Lackey MD [address] [place] [address] PCP - General Family Medicine 04/18/14August, Maribell Rodríguez RN [address] [place] [address] Blister Pack Operator Unspecified 12/13/21 Project Director Relationship Specialty Start Date End Date Kb Lackey MD [address] [place] [address] PCP - General Family Medicine 04/18/14AugustMaribell RN [address] [place] [address] Blister Pack Operator Unspecified 12/13/21 Project Director Relationship Specialty Start Date End Date Kb Lackey MD [address] [place] [address] PCP - General Family Medicine 04/18/14AugustMaribell RN [address] [place], [place] [id number] Blister Pack Operator Unspecified 12/13/21 Project Director Relationship Specialty Start Date End Date Kb Lackey MD [address] [place], [place] [address] PCP - General Family Medicine 04/18/14August, Maribell Rodríguez RN [address] [place], [place] [address] Blister Pack Operator Unspecified 12/13/21 Team Status: Active Member Role [...] Dr. Dennys Buenrostro DO Attending Provider Active Project Director Relationship Specialty Start Date End Date Kb Lackey MD [address] [place], [place] [address] PCP - General Family Medicine 04/18/14August, Maribell Rodríguez RN [address] [place] [address] Blister Pack Operator Unspecified 12/13/21 Project Director Relationship Specialty Start Date End Date Kb Lackey MD [address] [place] [address] PCP - General Family Medicine 04/18/14August, Maribell Rodríguez RN [address] [place] [address] Blister Pack Operator Unspecified 12/13/21 Project Director Relationship Specialty Start Date End Date Kb Lackey MD [address] [place] [address] PCP - General Family Medicine 04/18/14August, Maribell Rodríguez RN [address] [place] [address] Blister Pack Operator Unspecified 12/13/21 Project Director Relationship Specialty Start Date End Date Kb Lackey MD [address] [place] [address] PCP - General Family Medicine 04/18/14 Kianna Barnett, RN [address] [place] [address] Blister Pack Operator Internal Medicine 09/09/22 Project Director Relationship Specialty Start Date End Date Kb Lackey MD [address] [place] [address] PCP - General Family Medicine 04/18/14 Kianna Barnett, RN [address] [place] [address] Blister Pack Operator Internal Medicine 09/09/22 Project Director Relationship Specialty Start Date End Date Kb Lackey MD [address] [place] [address] PCP - General Family Medicine 04/18/14 Kianna Barnett, RN [address] [place] [address] Blister Pack Operator Internal Medicine 09/09/22 Project Director Relationship Specialty Start Date End Date Kb Lackey MD [address] [place] [address] PCP - General Family Medicine 04/18/14 Kianna Barnett, RN [address] [place] [address] Blister Pack Operator Internal Medicine 09/09/22 Project Director Relationship Specialty Start Date End Date Kb Lackye MD [address] [place] [address] PCP - General Family Medicine 04/18/14 Kianna Barnett, RN [address] [place] [address] Blister Pack Operator Internal Medicine 09/09/22 Project Director Relationship Specialty Start Date End Date Kb Lackey MD [address] [place] [address] PCP - General Family Medicine 04/18/14 Kianna Barnett RN [address] [place] [address] Blister Pack Operator Internal Medicine 09/09/22 Project Director Relationship Specialty Start Date End Date Kb Lackey MD [address] [place] [address] PCP - General Family Medicine 04/18/14 Kianna Barnett, RN [address] [place] [address] Blister Pack Operator Internal Medicine 09/09/22 Project Director Relationship Specialty Start Date End Date Kb Lackey MD [address] [place] [address] PCP - General Family Medicine 04/18/14 Kianna Barnett, RN [address] [place] [address] Blister Pack Operator Internal Medicine 09/09/22 Project Director Relationship Specialty Start Date End Date Kb Lackey MD [address] [place] [address] PCP - General Family Medicine 04/18/14 Kianna Barnett, RN [address] [place] [address] Blister Pack Operator Internal Medicine 09/09/22 Project Director Relationship Specialty Start Date End Date Kb Lackey MD [address] [place] [address] PCP - General Family Medicine 04/18/14 Kianna Barnett, RN [address] [place] [address] Blister Pack Operator Internal Medicine 09/09/22 Project Director Relationship Specialty Start Date End Date Kb Lackey MD [address] [place] [address] PCP - General Family Medicine 04/18/14 Kianna Barnett, RN [address] [place] [address] Blister Pack Operator Internal Medicine 09/09/22 Project Director Relationship Specialty Start Date End Date Kb Lackey MD [address] [place] [address] PCP - General Family Medicine 04/18/14 Kianna Barnett, RN [address] [place] [address] Blister Pack Operator Internal Medicine 09/09/22 Project Director Relationship Specialty Start Date End Date Kb Lackey MD [address] [place] [address] PCP - General Family Medicine 04/18/14 Kianna Barnett, RN [address] [place] [address] Blister Pack Operator Internal Medicine 09/09/22 Project Director Relationship Specialty Start Date End Date Kb Lackey MD [address] [place], [place] [address] PCP - General Family Medicine 04/18/14 Kianna Barnett, RN [address] [place] [address] Blister Pack Operator Internal Medicine 09/09/22 Project Director Relationship Specialty Start Date End Date Kb Lackey MD [address] [place] [address] PCP - General Family Medicine 04/18/14 Kianna Barnett, LEELA [address] [place] [address] Blister Pack Operator Internal Medicine 09/09/22 Project Director Relationship Specialty Start Date End Date Kb Lackey MD [address] [place] [address] PCP - General Family Medicine 04/18/14 Joan King, PRIMER POWDER BLENDER WET.NURSING SERVICES MANAGER [address] [place] [address] Physical Optics Teacher Family Medicine 03/15/24 Jeni Graham, PRIMER POWDER BLENDER WET.NURSING SERVICES MANAGER [address] [place] [address] Physical Optics Teacher Family Medicine 03/15/24 Project Director Relationship Specialty Start Date End Date Kb Lackey MD [address] [place] [address] PCP - General Family Medicine 04/18/14 Joan King, PRIMER POWDER BLENDER WET.NURSING SERVICES MANAGER [address] [place] [address] Physical Optics Teacher Family Medicine 03/15/24 Jeni Graham PRIMER POWDER BLENDER WET.NURSING SERVICES MANAGER [address] [facility] [address] [facility] 03/15/24 Project Director Relationship Specialty Start Date End Date Kb Lackey MD [address] [place] [address] PCP - General Family Medicine 04/18/14 Joan King APRN.NURSING SERVICES MANAGER [address] [facility] [place] [address] [facility] 03/15/24 Jeni Graham PRIMER POWDER BLENDER WET.NURSING SERVICES MANAGER [address] [facility] [address] [facility] 03/15/24 Project Director Relationship Specialty Start Date End Date Kb Lackey MD [address] [facility] [address] PCP - General Family Medicine 04/18/14 Joan King APRN.NURSING SERVICES MANAGER [address] [facility] [place] [address] [facility] 03/15/24 Jeni Graham PRIMER POWDER BLENDER WET.NURSING SERVICES MANAGER [address] [facility] [address] [facility] 03/15/24 Project Director Relationship Specialty Start Date End Date Kb Lackey MD [address] [facility] [address] PCP - General Family Medicine 04/18/14 Joan King APRN.NURSING SERVICES MANAGER [address] [facility] [place] [address] Physical Optics Teacher [facility] 03/15/24 Jeni Graham APRN.NURSING SERVICES MANAGER [address] [facility] [address] [facility] 03/15/24 Project Director Relationship Specialty Start Date End Date Kb Lackey MD [address] [facility] [address] PCP - General Family Medicine 04/18/14 Joan King APRN.NURSING SERVICES MANAGER [address] [facility] [place] [address] [facility] 03/15/24 Jeni Graham APRN.NURSING SERVICES MANAGER [address] [facility] [address] [facility] 03/15/24 Project Director Relationship Specialty Start Date End Date Kb Lackey MD [address] [place] [address] PCP - General Family Medicine 04/18/14 Joan King APRN.NURSING SERVICES MANAGER [address] [facility] [place] [address] [facility] 03/15/24 Jeni Graham APRN.NURSING SERVICES MANAGER [address] [place] [address] [facility] 03/15/24 Team Status: Active Member Role/Relationship [...] November 22, 2024 End: November 22, 2024 Project Director Relationship Specialty Start Date End Date Kb Lackey MD [address] [place], [place] [address] PCP - General Family Medicine 04/18/14 Joan King, PRIMER POWDER BLENDER WET.NURSING SERVICES MANAGER [address] [place], [place] [address] [facility] 03/15/24 Jeni Graham, PRIMER POWDER BLENDER WET.NURSING SERVICES MANAGER [address] [place], [place] [address] [facility] 03/15/24 Project Director Relationship Specialty Start Date End Date Kb Lackey MD [address] [place], [place] [id number] PCP - General Family Medicine 04/18/14 Joan King, PRIMER POWDER BLENDER WET.NURSING SERVICES MANAGER [address] [place], [place] [address] [facility] 03/15/24 Jeni Graham, PRIMER POWDER BLENDER WET.NURSING SERVICES MANAGER [address] [place], [place] [id number] [facility] 03/15/24 Goals (unrecognized section and content) Goals may be documented in a n alternate section (unrecognized sect ion and content) No Status Records FoundNo Status Records Found INFORMATION SOURCE (unrecogn ized section and content) DATE CREATED AUTHOR 11/23/2024 [facility] DATE CREATED AUTHOR AUTHOR'S JUSTEN LOPEZ 02/12/2025 [facility] FOR RECORDS PERTAINING TO PATIENTS WHO ARE [...] BE BASED ON THE PRIMARY CLINICAL RECORDS. [employer] [facility]. provides no warranty or guarantee of the accuracy or completeness of information in this document.
[2025-03-03 21:59] VITALS: BMI 21.3
[2025-03-03 22:00] VITALS: BP 106/66; PULSE 95; RESP 16; TEMP 36.6; O2SAT 98
[2025-03-03] MEDS: Mupirocin Ointment 22gm Tube 1 APPLIC TOPICAL (22:21)
[2025-03-03] MEDS: Lactated Ringers 1,000 ML 250 ML IV (22:26)
[2025-03-03] MEDS: Heparin Injection (Vial) 5,000 UNIT/ML VIAL 5000 UNIT SC (23:04)
[2025-03-03 23:29] LABS: Reflex Lactate? Y
[2025-03-04] VITALS (13 sets, daily range): BP systolic 107–140; BP diastolic 50–92; PULSE 65–79; RESP 14–20; TEMP 36.3–37.1; O2SAT 95–99
[2025-03-04] MEDS: Lactated Ringers 1,000 ML 250 ML IV ×2 (04:34→11:41)
[2025-03-04] MEDS: 0.9% Saline Lock 10 ML Syringe IV ×2 (05:56→20:43)
[2025-03-04] MEDS: Mupirocin Ointment 22gm Tube 1 APPLIC TOPICAL ×3 (05:56→20:39)
[2025-03-04 06:27] LABS: Hematocrit 28.9 % (40-54); Hemoglobin 9.3 g/dL (13.0-16.5); Immature Granulocytes Count 0.050 X10^3/uL (0.0-0.0); Mean Corp Hgb Conc 32.2 g/dL (32-36); Mean Corpuscular Volume 93.8 fL (80-94); Mean Platelet Vol. 10.6 fl (6.2-12.0); NRBC Flagged by Analyzer 0 % (0-5); Platelet Count 228 K/mm3 (150-450); RBC Distribution Width CV 12.6 % (11.6-14.6); RBC Distribution Width SD 43.6 fl (35.1-43.9); Red Blood Count 3.08 M/mm3 (4.6-6.2); White Blood Count 7.6 K/mm3 (4.4-11.0)
[2025-03-04 07:24] LABS: Anion Gap 18 (5-15); BUN 32 mg/dL (4-19); BUN/Creat Ratio 18.4 RATIO (10-20); Calcium,Total 8.1 mg/dL (7.6-11.0); Carbon Dioxide 14.3 mmol/L (21.0-32.0); Chloride 105 mmol/L (98-108); Estimated Creatinine Clearance 30.89 ml/min (50-250); Glucose 279 mg/dL (70-99); Magnesium 1.5 mg/dL (1.5-2.2); Potassium 4.5 mmol/L (3.3-5.1)
[2025-03-04 08:22] LABS: SITE Not entered; VBG BASE EXCESS -7 mmol/L (-1.0-3.5); VBG PO2 119 mmHg (25-40); VBG SO2 99 % (50-70); VBG TCO2 20 mmol/L (23-33)
[2025-03-04] MEDS: Cholecalciferol (VIT D3) 25 MCG TABLET (1,000 UNITS) PO (10:16)
[2025-03-04] MEDS: Insulin Glargine-YFGN 100 UNIT/ML Pen 10 UNIT SC ×2 (10:16→20:41)
[2025-03-04] MEDS: Heparin Injection (Vial) 5,000 UNIT/ML VIAL 5000 UNIT SC ×2 (10:16→20:38)
--- NOTE | 2025-03-04 10:27 | CASEMGMT ---
Social Work Face to Face with pt for initial transition planning/care coordination assessment. SW introduced self and role at [facility], pt voices understanding and consents to assessment. Pt is A&O x4 and answers all questions appropriately at this time. Admitting Dx: UTI, hyperglycemia Primary Care Doctor: Dr. Valdez Speciality doctors: none Insurance: [employer] Medicare Pharmacy: Patient utilizes [facility] in [place] Advanced directives: Patient reported he has a POA/LW. SW requested a copy for his chart. LNOK:. , son, daughter, 6 grandchildren Living Situation: Patient lives at home with his . His son and daughter live in the area. There are 4 steps into the home. ADL's/Prior level of functioning: independent Transportation: Patient still drives. DME: [facility]AUSS correction/home health history: none Mental Health: none Substance abuse history: none Assessment: Patient lives at home with his . His son and daughter live in the area. There are 4 steps into the home. PLAN: To be determined. LILIA Frost
[2025-03-04 12:25] LABS: BETA-HYDROXYBUTYRATE 3.5 mmol/L (0.0-0.3)
[2025-03-04] MEDS: Dext 5%-0.45% NS 1,000 ML 150 ML IV (14:43)
[2025-03-04 14:44] LABS: Anion Gap 14 (5-15); Carbon Dioxide 20.3 mmol/L (21.0-32.0); Chloride 107 mmol/L (98-108); Magnesium 1.5 mg/dL (1.5-2.2); Potassium 4.1 mmol/L (3.3-5.1)
[2025-03-04 15:14] LABS: BETA-HYDROXYBUTYRATE 0.7 mmol/L (0.0-0.3)
[2025-03-04] MEDS: Lactated Ringers 1,000 ML 150 ML IV ×2 (15:57→23:26)
--- NOTE | 2025-03-04 17:03 | PN.HOSP_ITS ---
Reason for Visit Chief Complaint: Confusion and urinary frequency Subjective Subjective Sitting up in bed, reports he is feeling somewhat better. He is very hard of hearing Objective Data Objective Data Vital Signs: Vital Signs Temp Pulse Resp BP Pulse Ox O2 Del Method 98.1 F 79 15 113/62 97 Room Air 03/04/25 13:51 03/04/25 13:51 03/04/25 13:51 03/04/25 13:51 03/04/25 13:51 03/04/25 13:51 Oxygen Delivery Method Room Air Weight: 67.5 kg Body Mass Index (BMI) 21.3 Intake & Output: Intake and Output for Last 24 Hours 03/02/25 03/03/25 03/04/25 23:59 23:59 23:59 Intake Total 1150 / 1150 3028 / 3028 Balance 1150 / 1150 3028 / 3028 Lab / Micro Data 03/04/25 06:05 03/04/25 14:15 Labs: Laboratory Results - last 24 hr 03/03/25 18:43: POC Glucose 363 H 03/03/25 19:20: WBC 7.0, RBC 3.77 L, Hgb 11.7 L, Hct 35.2 L, MCV 93.4, MCH 31.0, MCHC 33.2, RDW Std Deviation 43.5, RDW Coeff of Moise 12.7, Plt Count 323, MPV 10.7, Immature Gran % (Auto) 1.300 H, Neut % (Auto) 65.6, Lymph % (Auto) 19.5, M johanna % (Auto) 12.4 H, Eos % (Auto) 0.6, Baso % (Auto) 0.6, Absolute Neuts (auto) 4.6, Absolute Lymphs (auto) 1.36, Nucleated RBC % 0, Sodium 141, Potassium 4.2, Chloride 102, Carbon Dioxide 17.2 L, Anion Gap 22 H, BUN 42 H, Creatinine 2.29 H , Estim Creat Clear Calc 24.20 L, Est GFR (MDRD) Non-Af 28 L, BUN/Creatinine Ratio 18.2, Glucose 199 H, Lactic Acid 6.0 H*, Calcium 9.9, Total Bilirubin 0.29, AST 16, ALT 12, Alkaline Phosphatase 116, Total Protein 7.6, Albumin 4.1, Globulin 3.4, Albumin/Globulin Ratio 1.2, b-Hydroxybutyric mmol/L 1.9 H 03/03/25 19:44: Urine Color Yellow, Urine Clarity Cloudy, Urine pH 5.0, Ur Specific Lesage 1.015, Urine Protein 100 H, Urine Glucose (UA) 1000 H, Urine Ketones 50 H, Urine Occult Blood 150 H, Urine Nitrite Negative, Urine Bilirubin Negative, Urine Urobilinogen Normal, Ur Leukocyte Esterase 500 H, Urine RBC 0 SEEN, Urine WBC >100 SEEN, Ur Squamous Epith Cells 0 SEEN, Urine Bacteria 0 SEEN, Urine Mucus 0 SEEN 03/03/25 22:01: POC Glucose 102 03/03/25 23:58: Lactic Acid 1.2 03/04/25 05:54: POC Glucose 269 H 03/04/25 06:05: WBC 7.6, RBC 3.08 L, Hgb 9.3 L, Hct 28.9 L, MCV 93.8, MCH 30.2, MCHC 32.2, RDW Std Deviation 43.6, RDW Coeff of Moise 12.6, Plt Count 228, MPV 10.6, Immature Gran % (Auto) 0.700, Neut % (Auto) 69.1, Lymph % (Auto) 18.5 L, [place] % (Auto) 9.4, Eos % (Auto) 1.8, Baso % (Auto) 0.5, Absolute Neuts (auto) 5.3, Absolute Lymphs (auto) 1.41, Nucleated RBC % 0, Sodium 137, Potassium 4.5, Chloride 105, Carbon Dioxide 14.3 L, Anion Gap 18 H, BUN 32 H, Creatinine 1.76 H , Estim Creat Clear Calc 30.89 L, Est GFR (MDRD) Non-Af 38 L, BUN/Creatinine Ratio 18.4, Glucose 279 H, Lactic Acid < 1.0, Calcium 8.1, Magnesium 1.5, b- Hydroxybutyric mmol/L 3.5 H 03/04/25 11:47: POC Glucose 191 H 03/04/25 14:15: Sodium 141, Potassium 4.1, Chloride 107, Carbon Dioxide 20.3 L, Anion Gap 14, Phosphorus 2.2 L, Magnesium 1.5, b-Hydroxybutyric mmol/L 0.7 H ABG Data ABG results: ABG 03/03/25 03/04/25 19:24 08:18 Specimen Type ASHTYN ASHTYN Sample Site Not entered Not entered VBG pH 7.34 7.36 VBG pO2 21 L 119 H VBG HCO3 18 L 19 L VBG Total CO2 19 L 20 L VBG O2 Sat (Calc) 31 L 99 H VBG Base Excess -8 L -7 L POC Mix VBG pCO2 Pt Tmp 33.1 L 33.7 L O2 Delivery Device Room Air Not entered Physical Exam Narrative General: Alert, no apparent distress HEENT: Atraumatic, normocephalic Eyes: Anicteric, normal conjunctiva, extraocular movements grossly intact Neck: Supple Respiratory: Clear to auscultation bilaterally, normal respiratory effort Cardiovascular: Regular rate and rhythm GI: Soft, nontender, nondistended Extremities: No edema Musculoskeletal: Moving all extremities Neuro: No overt focal neurological deficits Skin: No rashes appreciated Psych: Cooperative Assessment & Plan Assessment/Plan (1) CHANTALE (acute kidney injury): PLAN: Plan #CHANTALE - Baseline creatinine around 1.34, on presentation creatinine 2.29, beginning to downtrend with a repeat 1.76, continue IV fluids and supportive care, continue to hold lisinopril # Hyperglycemia in setting of type 2 diabetes on insulin - Patient presented with hyperglycemia and urinary frequency, glucose 199 on presentation and lactic of 6 which, in addition to the uremia, seem to explain the bicarb of 17.2 and gap of 22 - In the a.m. lactic within normal limits however bicarb actually decreased to 14.3 and gap still 18 - Beta hydroxybutyrate on presentation amend 1.9 with 50 ketones, patient not overtly acidotic on blood gas and it was not felt patient in DKA - Given decreased bicarb with elevated gap despite resolution of lactic acid repeat beta hydroxybutyrate obtained and it was 3.5, plan was to transfer patient to ICU and started on insulin drip - Patient given aggressive IV fluids and when he got up to ICU labs were drawn as insulin drip was being set up and actually showed a normalized gap of 14 and improvement in bicarb to 20.3, repeated beta hydroxybutyrate which was 0.7 - Suspect patient was approaching DKA however with significant IV fluids and then his subcutaneous insulin was able to avoid full diabetic ketoacidosis - Will repeat labs in 4 hours and continue fluids and subcu insulin, if this remains stable will be able to continue with subcu insulin and sliding scale # Abnormal UA - Patient with urinary symptoms and abnormal UA - 0 bacteria but given clinical picture patient started empirically on antibiotics, awaiting further culture and sensitivity data #Hypothyroidism -Continue Synthroid #DVT ppx: Heparin subcu Shannon Amanda MD Time spent in the patient's overall evaluation, decision-making process, review of diagnostic data, adjustment of management, discussion with other providers, nursing and ancillary staff involved in patient's care documentation, 41 Minutes Charges/Coding Visit Charges Inpatient E&M: 82252 Subs Hosp L2
[2025-03-04 18:37] LABS: Anion Gap 14 (5-15); Carbon Dioxide 20.2 mmol/L (21.0-32.0); Chloride 107 mmol/L (98-108); Magnesium 1.5 mg/dL (1.5-2.2); Potassium 4.4 mmol/L (3.3-5.1)
[2025-03-05 02:45] VITALS: BP 113/87; PULSE 67; RESP 18; TEMP 36.6; O2SAT 98
[2025-03-05 03:00] VITALS: PULSE 64
[2025-03-05 03:10] LABS: Hematocrit 31.4 % (40-54); Hemoglobin 10.1 g/dL (13.0-16.5); Mean Corp Hgb Conc 32.2 g/dL (32-36); Mean Corpuscular Volume 94.3 fL (80-94); Mean Platelet Vol. 10.8 fl (6.2-12.0); Platelet Count 239 K/mm3 (150-450); RBC Distribution Width CV 12.8 % (11.6-14.6); RBC Distribution Width SD 43.9 fl (35.1-43.9); Red Blood Count 3.33 M/mm3 (4.6-6.2); White Blood Count 9.6 K/mm3 (4.4-11.0)
[2025-03-05 03:33] LABS: Anion Gap 12 (5-15); BUN 23 mg/dL (4-19); BUN/Creat Ratio 14.4 RATIO (10-20); Calcium,Total 8.4 mg/dL (7.6-11.0); Carbon Dioxide 20.1 mmol/L (21.0-32.0); Chloride 111 mmol/L (98-108); Estimated Creatinine Clearance 33.56 ml/min (50-250); Glucose 55 mg/dL (70-99); Potassium 3.9 mmol/L (3.3-5.1)
[2025-03-05] MEDS: Mupirocin Ointment 22gm Tube 1 APPLIC TOPICAL ×2 (04:52→21:36)
[2025-03-05] MEDS: 0.9% Saline Lock 10 ML Syringe IV ×2 (05:00→09:02)
--- NOTE | 2025-03-05 05:47 | NURSING ---
Blood glucose on AM labs noted at 55. Fingerstick glucose checked and it was 52. Juice and cookies given to patient. Rechecked and it was 46. More juice given and glucose rechecked at 61. Patient ate some pudding and drank some milk, rechecked at 95 just now.
[2025-03-05 06:05] LABS: Magnesium 1.4 mg/dL (1.5-2.2)
[2025-03-05] MEDS: Lactated Ringers 1,000 ML 150 ML IV (06:32)
[2025-03-05] MEDS: Insulin Glargine-YFGN 100 UNIT/ML Pen 6 UNIT SC ×2 (09:03→21:37)
[2025-03-05] MEDS: Heparin Injection (Vial) 5,000 UNIT/ML VIAL 5000 UNIT SC ×2 (09:04→21:36)
[2025-03-05] MEDS: Cholecalciferol (VIT D3) 25 MCG TABLET (1,000 UNITS) PO (09:04)
[2025-03-05] MEDS: Magnesium Sulfate 2 GM in Dextrose 5%-Water (100mL Bag) 100 ML IV (09:58)
[2025-03-05 10:00] VITALS: BP 116/62; PULSE 71; RESP 19; TEMP 36.6; O2SAT 100
[2025-03-05 12:20] VITALS: BP 121/69; PULSE 66; RESP 17; TEMP 36.7; O2SAT 100
[2025-03-05 13:23] LABS: Anion Gap 16 (5-15); BUN 20 mg/dL (4-19); BUN/Creat Ratio 14.1 RATIO (10-20); Calcium,Total 8.6 mg/dL (7.6-11.0); Carbon Dioxide 21.0 mmol/L (21.0-32.0); Chloride 107 mmol/L (98-108); Estimated Creatinine Clearance 38.02 ml/min (50-250); Glucose 176 mg/dL (70-99); Potassium 4.2 mmol/L (3.3-5.1)
--- NOTE | 2025-03-05 14:33 | CASEMGMT ---
Social Work Pt had PT/OT today, no therapy recommended. SW spoke w/pt about discharge, pt does not anticipate any homegoing needs, denies any DME needs, is not interested in home care at this time. No further needs, pt home at d/c. JASMIN Rios
[2025-03-05 15:31] VITALS: BP 121/65; PULSE 60; RESP 15; TEMP 36.6; O2SAT 98
--- NOTE | 2025-03-05 16:16 | PN.HOSP_ITS ---
Reason for Visit Chief Complaint: Confusion and urinary frequency Subjective Subjective Patient beginning to feel better, more awake and alert, improving appetite. Objective Data Objective Data Vital Signs: Vital Signs Temp Pulse Resp BP Pulse Ox O2 Del Method 97.8 F 60 15 121/65 H 98 Room Air 03/05/25 15:31 03/05/25 15:31 03/05/25 15:31 03/05/25 15:31 03/05/25 15:31 03/05/25 15:31 Oxygen Delivery Method Room Air Weight: 67.5 kg Body Mass Index (BMI) 21.3 Intake & Output: Intake and Output for Last 24 Hours 03/03/25 03/04/25 03/05/25 23:59 23:59 23:59 Intake Total 1150 / 1150 4028 / 4028 1988 Output Total 50 / 50 Balance 1150 / 1150 3978 / 3978 1988 Lab / Micro Data 03/05/25 02:53 03/05/25 12:40 Labs: Laboratory Results - last 24 hr 03/04/25 14:18: POC Glucose 119 H 03/04/25 16:16: POC Glucose 164 H 03/04/25 17:45: Sodium 142, Potassium 4.4, Chloride 107, Carbon Dioxide 20.2 L, Anion Gap 14, Phosphorus 2.2 L, Magnesium 1.5 03/04/25 20:37: POC Glucose 222 H 03/05/25 02:53: WBC 9.6, RBC 3.33 L, Hgb 10.1 L, Hct 31.4 L, MCV 94.3 H, MCH 30.3, MCHC 32.2, RDW Std Deviation 43.9, RDW Coeff of Moise 12.8, Plt Count 239, MPV 10.8, Sodium 143, Potassium 3.9, Chloride 111 H, Carbon Dioxide 20.1 L, Anion Gap 12, BUN 23 H, Creatinine 1.62 H, Estim Creat Clear Calc 33.56 L, Est GFR (MDRD) Non-Af 42 L, BUN/Creatinine Ratio 14.4, Glucose 55 L, Calcium 8.4, Phosphorus 2.7, Magnesium 1.4 L 03/05/25 04:48: POC Glucose 52 L 03/05/25 04:59: POC Glucose 46 L 03/05/25 05:23: POC Glucose 61 L 03/05/25 05:46: POC Glucose 95 03/05/25 09:08: POC Glucose 292 H 03/05/25 11:26: POC Glucose 268 H 03/05/25 12:40: Sodium 144, Potassium 4.2, Chloride 107, Carbon Dioxide 21.0, A nion Gap 16 H, BUN 20 H, Creatinine 1.43 H, Estim Creat Clear Calc 38.02 L, Est GFR (MDRD) Non-Af 49 L, BUN/Creatinine Ratio 14.1, Glucose 176 H, Calcium 8.6 Micro: Microbiology 03/03/25 19:44 Urine, Random Urine Culture - Final Mixed Gram Pos & Gram Neg Org Physical Exam Narrative General: Alert, no apparent distress HEENT: Atraumatic, normocephalic Eyes: Anicteric, normal conjunctiva, extraocular movements grossly intact Neck: Supple Respiratory: Clear to auscultation bilaterally, normal respiratory effort Cardiovascular: Regular rate and rhythm GI: Soft, nontender, nondistended Extremities: No edema Musculoskeletal: Moving all extremities Neuro: No overt focal neurological deficits Skin: No rashes appreciated Psych: Cooperative Assessment & Plan Assessment/Plan (1) CHANTALE (acute kidney injury): PLAN: Plan #CHANTALE - Baseline creatinine around 1.34, on presentation creatinine 2.29, beginning to downtrend with a repeat 1.76, continue IV fluids and supportive care, continue to hold lisinopril -03/05: Creatinine 1.43, has continued to improve, DC IV fluids, encourage p.o. if patient remains stable tomorrow can likely DC # Hyperglycemia in setting of type 2 diabetes on insulin - Patient presented with hyperglycemia and urinary frequency, glucose 199 on presentation and lactic of 6 which, in addition to the uremia, seem to explain the bicarb of 17.2 and gap of 22 - In the a.m. lactic within normal limits however bicarb actually decreased to 14.3 and gap still 18 - Beta hydroxybutyrate on presentation amend 1.9 with 50 ketones, patient not overtly acidotic on blood gas and it was not felt patient in DKA - Given decreased bicarb with elevated gap despite resolution of lactic acid repeat beta hydroxybutyrate obtained and it was 3.5, plan was to transfer patient to ICU and started on insulin drip - Patient given aggressive IV fluids and when he got up to ICU labs were drawn as insulin drip was being set up and actually showed a normalized gap of 14 and improvement in bicarb to 20.3, repeated beta hydroxybutyrate which was 0.7 - Suspect patient was approaching DKA however with significant IV fluids and then his subcutaneous insulin was able to avoid full diabetic ketoacidosis - Will repeat labs in 4 hours and continue fluids and subcu insulin, if this remains stable will be able to continue with subcu insulin and sliding scale # Abnormal UA - Patient with urinary symptoms and abnormal UA - 0 bacteria but given clinical picture patient started empirically on antibiotics, awaiting further culture and sensitivity data -03/05: Highly variable glucose, occasionally becomes hypoglycemic but then easily becomes hyperglycemic. Reportedly based on patient's med list he was on NPH 22 units every morning and 12 units at bedtime however he is on 6 units twice daily of glargine here with sliding scale and is quite variable. Will need to clarify so home regimen can be adjusted if needed. Patient will need to monitor glucose very closely upon discharge # Abnormal UA -03/05: UA was abnormal patient with urinary symptoms and confusion, he is improved with antibiotics, urine culture with mixed organisms suggesting it was as poor specimen. Given patient responded symptomatically will continue to treat as presumed UTI for short course #Hypothyroidism -Continue Synthroid -03/05: Last TSH earlier this year 2.3, do not need repeat at this time #DVT ppx: Heparin subcu Shannon Amanda MD Time spent in the patient's overall evaluation, decision-making process, review of diagnostic data, adjustment of management, discussion with other providers, nursing and ancillary staff involved in patient's care documentation, 36 Minutes Charges/Coding Visit Charges Inpatient E&M: 63619 Subs Hosp L2
[2025-03-05 21:33] VITALS: BP 133/73; PULSE 58; RESP 16; TEMP 36.9; O2SAT 95
[2025-03-06 03:09] VITALS: BP 125/62; PULSE 97; RESP 16; TEMP 36.7; O2SAT 96
[2025-03-06 06:23] LABS: Hematocrit 28.0 % (40-54); Hemoglobin 9.5 g/dL (13.0-16.5); Mean Corp Hgb Conc 33.9 g/dL (32-36); Mean Corpuscular Volume 91.8 fL (80-94); Mean Platelet Vol. 10.7 fl (6.2-12.0); Platelet Count 189 K/mm3 (150-450); RBC Distribution Width CV 13.0 % (11.6-14.6); RBC Distribution Width SD 43.0 fl (35.1-43.9); Red Blood Count 3.05 M/mm3 (4.6-6.2); White Blood Count 5.7 K/mm3 (4.4-11.0)
[2025-03-06 06:51] LABS: Anion Gap 11 (5-15); BUN 20 mg/dL (4-19); BUN/Creat Ratio 15.1 RATIO (10-20); Calcium,Total 8.4 mg/dL (7.6-11.0); Carbon Dioxide 22.9 mmol/L (21.0-32.0); Chloride 110 mmol/L (98-108); Estimated Creatinine Clearance 41.51 ml/min (50-250); Glucose 129 mg/dL (70-99); Potassium 3.7 mmol/L (3.3-5.1)
[2025-03-06] MEDS: Mupirocin Ointment 22gm Tube 1 APPLIC TOPICAL (06:56)
[2025-03-06 09:00] VITALS: BP 141/54; PULSE 62; RESP 16; TEMP 36.7; O2SAT 97
[2025-03-06] MEDS: Heparin Injection (Vial) 5,000 UNIT/ML VIAL 5000 UNIT SC (09:16)
[2025-03-06] MEDS: Cholecalciferol (VIT D3) 25 MCG TABLET (1,000 UNITS) PO (09:17)
[2025-03-06] MEDS: Insulin Glargine-YFGN 100 UNIT/ML Pen 6 UNIT SC (10:34)
--- NOTE | 2025-03-06 12:20 | DCINST_ITS ---
Discharge Instructions DC O2, CPAP, BIPAP needs Home O2 Discharge instructions: No Dressing / Incision Discharge Activity: - (Increase activity as tolerated) Follow Up Care Test Results: Test results from this visit will be discussed in further detail at your follow- up appointment, if applicable. Discharge Plan Admission Admit Date/Time: 03/03/25 21:07 Primary Reason for Your Visit: Urinary frequency and vonfusion Attending Provider: Shannon Amanda Primary Care Provider: Kb Valdez Consulting Providers: Mauricio Gaines Instructions Patient Instructions: ED Fall Prevention Additional Instructions / Restrictions: DISCHARGE INSTRUCTIONS PLEASE READ *Please take this with you to your next doctors appointment* - You will be discharged with 3 more days of Augmentin to complete treatment for urinary tract infection, this was sent in to [email or web address], your preferred pharmacy on file. -Resume your home insulin regimen as you indicated that this had been working for you previously, follow-up closely with your primary care provider to assess if any adjustments need made and it will be important that you are monitoring your glucose regularly at home -Please call your primary care provider's office upon discharge to schedule a hospital follow up within 1 week. -For any concerning signs or symptoms please call 911 or proceed to the nearest emergency department Discharge Orders/Prescriptions Prescriptions: New amoxicillin-pot clavulanate 875-125 mg tablet 1 tab PO BID 3 Days Qty: 6 0RF Continued cholecalciferol (vitamin D3) 25 mcg (1,000 unit) capsule 25 mcg PO DAILY ferrous sulfate 325 MG tablet 325 mg PO DAILY (DME) lancets-blood glucose strips 1 EACH combo pack 1 each MC BID Qty: 1 1RF cyanocobalamin (vitamin B-12) 1,000 mcg tablet 1,000 mcg PO DAILY levothyroxine 125 mcg tablet 125 mcg PO DAILY lisinopril 30 mg tablet 30 mg PO DAILY Novolin 70-30 FlexPen U-100 100 unit/mL (70-30) insulin pen See Rx Instructions subcut BID Rx Instructions: 22 UNITS EVERY MORNING, 12 UNITS at bedtime (DME) pen needle, diabetic, safety 30 gauge x 1/3 needle 1 ea ALEC. UD Qty: 100 6RF Rx Instructions: 3x/day metformin 500 mg tablet extended release 24 hr 1,000 mg PO BID Qty: 360 3RF Referrals / Follow Up: Kb Valdez MD [Primary Care Provider, Medical] - Within 1 Week Disposition Disposition (needs filled in before D/C Order can be placed): Home, Self Care
--- NOTE | 2025-03-06 12:40 | DS.PCM_ITS ---
Providers Date of Admission: 03/03/25 Date of Discharge: 03/06/25 Primary Care Physician: Dr. Kb Valdez MD Reason For Visit: UTI, HYPERGLYCEMIA Diagnosis Discharge Diagnosis (1) CHANTALE (acute kidney injury): Status: Acute Code(s): N17.9 - Acute kidney failure, unspecified (2) Acute cystitis: Status: Acute Code(s): N30.00 - Acute cystitis without hematuria (3) Acute metabolic encephalopathy: Status: Acute Code(s): G93.41 - Metabolic encephalopathy (4) Hyperglycemia due to type 2 diabetes mellitus: Status: Acute Code(s): E11.65 - Type 2 diabetes mellitus with hyperglycemia Plan #CHANTALE- resolved # Hyperglycemia in setting of type 2 diabetes on insulin #Urinary tract infection #Acute metabolic encephalopathy 2/2 UTI #Hypothyroidism Medications at Discharge Home Medications ferrous sulfate 325 mg (65 mg iron) tablet 325 mg PO DAILY anemia 06/25/20 lancets 30 gauge and blood glucose strips combo pack ##1 06/27/20 cholecalciferol (vitamin D3) 25 mcg (1,000 unit) capsule 25 mcg PO DAILY vitamin 07/18/20 pen needle, diabetic, safety 30 gauge x 1/3 #100 ea 01/05/24 cyanocobalamin (vitamin B-12) 1,000 mcg tablet 1,000 mcg PO DAILY vitamin 07/26/24 levothyroxine 125 mcg tablet 125 mcg PO DAILY thyroid 07/26/24 lisinopril 30 mg tablet 30 mg PO DAILY blood pressure 07/26/24 metformin 500 mg tablet,extended release 24 hr 1,000 mg (2 x 500 mg) PO BID diabetes #360 tabs 09/17/24 insulin NPH-regular 70-30 U-100 insulin 100 unit/mL subcutaneous pen (Novolin 70-30 FlexPen U-100 Insulin) See Rx Instructions subcut BID diabetes 03/03/25 amoxicillin 875 mg-potassium clavulanate 125 mg tablet 1 tab PO BID 3 days #6 tabs 03/06/25 Hospital Course Summary of Care Provided Minutes Spent on Discharge: 32 Hospital Course: 84-year-old male with history of diabetes and hypothyroidism presented [facility] ED 03/03/2025 due to urinary frequency, intermittent confusion, and a home urine test positive for nitrates. Additionally patient, despite taking his usual insulin, was hyperglycemic with glucose all the way up to 375. In the ED BUN 42 and creatinine 2.29 up from baseline of around 1.34, bicarb 17.2 and gap of 22, lactic acid found to be 6. UA with leuk esterase and white cells and [id number] glucose 363. Patient had venous gas with pH of 7.34 indicating he was not acidotic and beta hydroxybutyrate of 1.9, it was felt to be in indeterminate range and that patient's low bicarb and elevated gap were likely due to the lactic acid of 6 which was a reasonable assumption. Patient clinically suspected to have a urinary tract infection as he was symptomatic, was showing an early left shift and additionally had CHANTALE, altered mental status, lactic acid of 6. Blood pressure in the ED 95/60 but improved w/ IVF. Urine was sent for culture and he was given IV fluids and started on antibiotics for presumed UTI. In regards to patient's glucose there was concern that he could be in early DKA as lactic normalized but patient had bicarb of 14.3 on a.m. BMP with a gap of 18 and glucose 279. Beta hydroxybutyrate added on and VBG obtained. Beta hydroxybutyrate 3.5 and patient moved to the ICU for an insulin drip. Blood gas came back with a VBG pH of 7.36 and bicarb 19, pCO2 33.7. Repeat labs obtained before initiating drip to assess status and actually showed bicarb improved to 20.3 and gap normalized, beta-hydroxybutyrate down to 0.7 so patient did not need drip to be initiated. He was continued with subcu insulin, IV fluids, and allowed to eat, DKA ruled out. Reportedly he has had difficulty with widely variable glucoses previously as well. In regards to UTI, patient's mental status and kidney function as well as glucose improved after he was started on antibiotics and given IV fluids and he responded well to treatment. Unfortunately urine culture was a poor sample as it showed mixed gram-positive and gram-negative organisms and colony counts of 80,000-100,000. At this point, however, patient presumed to have a UTI given the above and given response to treatment will plan to DC home to finish out treatment course for urinary tract infection. Discharge instructions as follows: - You will be discharged with 3 more days of Augmentin to complete treatment for urinary tract infection, this was sent in to [facility], your preferred pharmacy on file. -Resume your home insulin regimen as you indicated that this had been working for you previously, follow-up closely with your primary care provider to assess if any adjustments need made and it will be important that you are monitoring your glucose regularly at home -Please call your primary care provider's office upon discharge to schedule a hospital follow up within 1 week. -For any concerning signs or symptoms please call 911 or proceed to the nearest emergency department Physical Exam Narrative General: Resting comfortably, no apparent distress HEENT: Atraumatic, normocephalic, hard of hearing Eyes: Anicteric, normal conjunctiva, extraocular movements grossly intact Neck: Supple Respiratory: Clear to auscultation bilaterally, normal respiratory effort Cardiovascular: Regular rate GI: Soft, nontender, nondistended Extremities: No edema Musculoskeletal: Moving all extremities Neuro: No overt focal neurological deficits Skin: No rashes appreciated Psych: Cooperative Weight / BMI Weight Weight: 67.5 kg Body Mass Index (BMI) 21.3 ABG / Lab / Microbiology Data 03/06/25 06:03 03/06/25 06:03 Laboratory: Laboratory Results - last 24 hr 03/05/25 04:48: POC Glucose 52 L 03/05/25 04:59: POC Glucose 46 L 03/05/25 12:40: Sodium 144, Potassium 4.2, Chloride 107, Carbon Dioxide 21.0, A nion Gap 16 H, BUN 20 H, Creatinine 1.43 H, Estim Creat Clear Calc 38.02 L, Est GFR (MDRD) Non-Af 49 L, BUN/Creatinine Ratio 14.1, Glucose 176 H, Calcium 8.6 03/05/25 15:30: POC Glucose 112 H 03/05/25 21:35: POC Glucose 227 H 03/06/25 06:03: WBC 5.7, RBC 3.05 L, Hgb 9.5 L, Hct 28.0 L, MCV 91.8, MCH 31.1, MCHC 33.9 D, RDW Std Deviation 43.0, RDW Coeff of Moise 13.0, Plt Count 189, MPV 10.7, Sodium 143, Potassium 3.7, Chloride 110 H, Carbon Dioxide 22.9, Anion Gap 11, BUN 20 H, Creatinine 1.31 H, Estim Creat Clear Calc 41.51 L, Est GFR (MDRD) Non-Af 54 L, BUN/Creatinine Ratio 15.1, Glucose 129 H, Calcium 8.4 03/06/25 06:54: POC Glucose 113 H 03/06/25 10:33: POC Glucose 195 H Microbiology: Microbiology 03/03/25 19:44 Urine, Random Urine Culture - Final Mixed Gram Pos & Gram Neg Org D/C Instructions DC O2, CPAP, BIPAP Needs Home O2 Discharge instructions: No Meaningful Use Info Meaningful Use Meaningful Use Diagnoses (Choose all that apply): None applicable Discharge Plan Admission Admit Date/Time: 03/03/25 21:07 Primary Reason for Your Visit: Urinary frequency and vonfusion Attending Provider: Shannon Amanda Primary Care Provider: Kb Valdez Consulting Providers: Mauricio Gaines Instructions Patient Instructions: ED Fall Prevention Additional Instructions / Restrictions: DISCHARGE INSTRUCTIONS PLEASE READ *Please take this with you to your next doctors appointment* - You will be discharged with 3 more days of Augmentin to complete treatment for urinary tract infection, this was sent in to [facility], your preferred pharmacy on file. -Resume your home insulin regimen as you indicated that this had been working for you previously, follow-up closely with your primary care provider to assess if any adjustments need made and it will be important that you are monitoring your glucose regularly at home -Please call your primary care provider's office upon discharge to schedule a hospital follow up within 1 week. -For any concerning signs or symptoms please call 911 or proceed to the nearest emergency department Discharge Orders/Prescriptions Prescriptions: New amoxicillin-pot clavulanate 875-125 mg tablet 1 tab PO BID 3 Days Qty: 6 0RF Continued cholecalciferol (vitamin D3) 25 mcg (1,000 unit) capsule 25 mcg PO DAILY ferrous sulfate 325 MG tablet 325 mg PO DAILY (DME) lancets-blood glucose strips 1 EACH combo pack 1 each MC BID Qty: 1 1RF cyanocobalamin (vitamin B-12) 1,000 mcg tablet 1,000 mcg PO DAILY levothyroxine 125 mcg tablet 125 mcg PO DAILY lisinopril 30 mg tablet 30 mg PO DAILY Novolin 70-30 FlexPen U-100 100 unit/mL (70-30) insulin pen See Rx Instructions subcut BID Rx Instructions: 22 UNITS EVERY MORNING, 12 UNITS at bedtime (DME) pen needle, diabetic, safety 30 gauge x 1/3 needle 1 ea MISCELL. UD Qty: 100 6RF Rx Instructions: 3x/day metformin 500 mg tablet extended release 24 hr 1,000 mg PO BID Qty: 360 3RF Referrals / Follow Up: Kb Valdez MD [Primary Care Provider, Medical] - Within 1 Week Disposition Disposition (needs filled in before D/C Order can be placed): Home, Self Care Charges/Coding Visit Charges Inpatient E&M: 65703 Disch Hosp >30min
== END 2025-03-06 14:12 | disposition home or self-care (01) | DRG 682 ==
LOC: ED 20:53 → PCU 21:22 → ICU 03-04 14:18 → PCU 03-05 12:10
PROVIDERS: Admitting Provider Internal Medicine; Emergency Provider Surgery; PCP Family Medicine; Visit Provider Internal Medicine
DX: N17.9 Acute kidney failure, unspecified (principal); G93.41 Metabolic encephalopathy; N39.0 Urinary tract infection, site not specified; E11.22 Type 2 diabetes mellitus with diabetic chronic kidney disease; E03.9 Hypothyroidism, unspecified; E11.65 Type 2 diabetes mellitus with hyperglycemia; L03.012 Cellulitis of left finger; F03.B0 Unspecified dementia, moderate, without behavioral disturbance, psychotic disturbance, mood disturbance, and anxiety; N18.9 Chronic kidney disease, unspecified; I12.9 Hypertensive chronic kidney disease with stage 1 through stage 4 chronic kidney disease, or unspecified chronic kidney disease; Z79.4 Long term (current) use of insulin; Z87.891 Personal history of nicotine dependence; Z79.899 Other long term (current) drug therapy; Z79.84 Long term (current) use of oral hypoglycemic drugs
CPT/HCPCS: 36415; 80048; 80051; 80053; 81001; 82010; 82803; 82962; 83605; 83735; 84100; 85025; 85027; 87086; 87088; 97161; 97165; 99285; A4216